=== PATIENT | female | born 1950 | race African-American/Black ===

== ENCOUNTER 2024-08-28 04:31 | Emergency (ER) | payer MEDICARE, SELFPAY ==
--- NOTE | ~2024-08-28 | CT_ITS ---
EXAMINATION: CTA abd aorta runoff DATE: 08/28/2024 06:02 INDICATION: Peripheral arterial disease. Decreased pulses in right lower limb. TECHNIQUE: Computed tomographic angiography (CTA) of the abdominal, pelvis, and both lower extremitie s was performed with 150 mL Omnipaque-350 intravenous contrast. Automated exposure control and iterat candelario reconstruction technique were employed. The dose-length product was 1286.29 mGy-cm. Maximum inten sity projection 3D-reconstructions of the arteries were created by the technologist on a separate wor kstation. COMPARISON: None. FINDINGS: ABDOMINAL AORTA AND ITS BRANCHES: Abdominal aorta is normal in caliber. There is no significant stenosis of celiac axis, superior mesen teric artery, the renal arteries, or inferior mesenteric artery. PELVIC VASCULATURE: There is no significant stenosis of the common iliac arteries, internal iliac arteries, or external i liac arteries. RIGHT LOWER EXTREMITY VASCULATURE: There is no significant stenosis of common femoral artery, profunda femoral artery, superficial femor al artery, popliteal artery, tibioperoneal trunk, anterior tibial artery, or peroneal artery. Posteri or tibial artery is small and not well evaluated. There is total occlusion of the dorsalis pedis with reconstitution. LEFT LOWER EXTREMITY VASCULATURE: There is no significant stenosis of left common femoral artery, profunda femoral artery, or superfici al femoral artery. There is moderate stenosis of popliteal artery. There is no significant stenosis o f the tibioperoneal trunk. There is moderate stenosis of proximal anterior tibial artery. There is no significant stenosis of peroneal artery. There is total occlusion of distal posterior tibial artery. ADDITIONAL FINDINGS: The visualized portions of the lung bases demonstrate mild atelectasis. No pleural effusion. There is left atrial enlargement of the heart. There are coronary artery calcifications. No pericardial effus ion. The liver and spleen are normal. There are gallstones in the gallbladder, which is normal in siz e. The pancreas and adrenal glands are normal. There are cysts in the kidneys measuring up to 5 mm on the right. There is diverticulosis of the colon without evidence of diverticulitis. There are no dil ated loops of bowel. The appendix is normal. There are no pathologically enlarged lymph nodes. There is no free intraperitoneal fluid. There is a trimalleolar fracture of right ankle. IMPRESSION: 1. Total occlusion of right dorsalis pedis with reconstitution. 2. Small right posterior tibial artery, which is otherwise not well evaluated. 3. Moderate stenosis of left popliteal artery. 4. Moderate stenosis of proximal left anterior tibial artery. Total occlusion of distal left posterio r tibial artery. 5. Trimalleolar fracture of right ankle. Reviewed, dictated and finalized at location A. HANDLER IMPRESSION: 1. Total occlusion of right dorsalis pedis with reconstitution. 2. Small right posterior tibial artery, which is otherwise not well evaluated. 3. Moderate stenosis of left popliteal artery. 4. Moderate stenosis of proximal left anterior tibial artery. Total occlusion o f distal left posterior tibial artery. 5. Trimalleolar fracture of right ankle.
--- NOTE | ~2024-08-28 | XR_ITS ---
Right ankle Technique: AP, oblique, and lateral views were obtained. Clinical History: Injury Findings: There is acute, oblique fracture of the distal fibular shaft with significant lateral displ acement and overriding of the distal fracture fragment. There is comminuted fractures of the base the medial malleolus with significant displacement. There is medial dislocation of the distal tibia with respect to the talar dome. There is marked widening of the anterior aspect of the ankle mortise on l ateral view. No definite posterior malleolus fracture clearly seen. Soft tissues are otherwise unrema rkable. Impression: Significant displaced medial and lateral malleolus fractures, as above with associated medial disloca tion of the distal tibia with respect to the talar dome. No definite posterior malleolus fracture seen, though it may be obscured due to limitations in patien t positioning. Reviewed, dictated and finalized at [facility]. ACE TENDER Impression: Significant displaced medial and lateral malleolus fractures, as above with ass ociated medial dislocation of the distal tibia with respect to the talar dome. No definite posterior malleolus fracture seen, though it may be obscured due to limitations in patient positioning.
--- NOTE | ~2024-08-28 | XR_ITS ---
Right ankle Technique: AP and lateral views were obtained. Clinical History: Post reduction COMPARISON: 08/28/2024 at 4:42 AM Findings: Status post interval closed reduction. Oblique fracture of the distal fibula and fractures the base the medial malleolus are again present. Osseous alignment is markedly improved following layo sed reduction and casting, with near-anatomic alignment. Probable small posterior malleolus fracture also present on lateral view. Soft tissues are otherwise unremarkable. Impression: Marked interval improvement in alignment of trimalleolar fractures, as detailed above, following clos ed reduction. Osseous alignment is now near anatomic. Status post interval casting. Reviewed, dictated and finalized at location M. OR PRINCIPAL PROCESS ENGINEER Impression: Marked interval improvement in alignment of trimalleolar fractures, as detailed above, following closed reduction. Osseous alignment is now near anatomic. Sta tus post interval casting.
--- NOTE | ~2024-08-28 | XR_ITS ---
Portable chest x-ray Comparison: None Clinical History: Cough Findings: Lungs are clear, without focal consolidation or pleural effusion. Cardiomediastinal silho uette is mildly prominent. Bones and soft tissues are unremarkable. Impression: Clear lungs. Mild cardiomegaly. Reviewed, dictated and finalized at location . UP PERSON Impression: Clear lungs. Mild cardiomegaly.
[2024-08-28] MEDS: HYDROmorphone HCL INJ (*CRX) 1 MG/ML SYR IV PUSH (04:39)
[2024-08-28 04:45] VITALS: BP 141/74; PULSE 88; RESP 17; TEMP 36.7; O2SAT 100
[2024-08-28 05:16] LABS: Basophils Percent Auto 0.3 % (0.2-1.2); Eosinophils Absolute Auto 0.1 K/mm3 (0-0.3); Eosinophils Percent Auto 1.4 % (0-4.4); Hematocrit 36.2 % (37.0-47.0); Hemoglobin 11.4 g/dL (12.0-15.0); Immature Granulocyte Absolute 0.02 K/mm3 (0.00-0.031); Immature Granulocyte Percent A 0.3 % (0-0.5); Lymphocytes Absolute Auto 3.54 K/mm3 (0.9-3.2); Mean Corpuscular HGB Conc 31.5 g/dl (32-36); Mean Corpuscular Hemoglobin 28.8 pg (26-34); Mean Corpuscular Volume 91.4 fl (80-100); Mean Platelet Volume 10.9 fl (7.4-10.4); Monocytes Absolute Auto 0.5 K/mm3 (0.1-0.6); Monocytes Percent Auto 7.5 % (2.6-8.5); Neutrophils Absolute Auto 2.4 K/mm3 (1.3-6.7); Neutrophils Percent Auto 36.5 % (45.5-73.1); Platelet Count Result 164 k/mm3 (150-375); Red Blood Count 3.96 M/mm3 (4.2-5.4); Red Cell Distribution Width 15.9 % (11.5-14.5); White Blood Count 6.6 K/mm3 (4.5-10.0)
[2024-08-28 05:28] LABS: Prothrombin Time 13.9 Seconds (11.1-14.7)
[2024-08-28 05:29] LABS: Partial Thromboplastin Time 26.2 Seconds (22.3-36.8)
[2024-08-28 05:31] LABS: Alanine Aminotransferase 19 U/L (6-35); Albumin Level 4.2 g/dL (3.5-5.1); Alkaline Phosphatase 47 U/L (38-126); Anion Gap 1 mmol/L (4-12); Aspartate Amino Transferase 40 U/L (14-36); Bilirubin,Total 0.6 mg/dL (0.2-1.3); Blood Urea Nitrogen 28 mg/dL (7-17); Calcium 8.7 mg/dL (8.4-10.2); Carbon Dioxide 29 mmol/L (22-30); Chloride 109 mmol/L (98-107); Estimated CRCL calculation 49 ml/min; Estimated Glomerular Filt Rate > 60; Glucose 132 mg/dL (65-110); Potassium 3.8 mmol/L (3.4-5.0); Sodium 139 mmol/L (137-145)
--- NOTE | 2024-08-28 05:35 | ED.GENADULT ---
HPI - General Adult General Chief complaint: Extremity Injury, Lower <Morris Ruiz MD - Last Filed: 08/28/24 05:39> Stated complaint: ANKLE INJURY S/P FALL <Morris Ruiz MD - Last Filed: 08/28/24 05:39> Time Seen by Provider: 08/28/24 04:56 <Morris Ruiz MD - Last Filed: 08/28/24 05:39> History of Present Illness HPI narrative: Patient is a 74-year-old female who presents emergency department with chief complaint of right ankle pain. Patient tripped on steps at home and landed on her right ankle the patient reports no head injury denies loss of consciousness EMS reported obvious deformity at the scene and at were having a difficult time assessing a pulse in the right foot. The patient reports severe pain in the right ankle and foot <Morris Ruiz MD - Last Filed: 08/28/24 05:39> Related Data Allergies/adverse reactions: Allergies Allergy/AdvReac Type Severity Reaction Status Date / Time No Known Allergies Allergy Verified 08/28/24 04:52 <Morris Ruiz MD - Last Filed: 08/28/24 05:39> Review of Systems Review of Systems: A 10 system review of systems was completed on the patient and is negative except for what is stated in the HPI. Nursing and ancillary documentation was reviewed. <Morris Ruiz MD - Last Filed: 08/28/24 05:39> Exam Narrative: GENERAL: Well-appearing, well-nourished, and in no acute distress. HEAD: Normocephalic, atraumatic. EYES: PERRLA and EOMI. ENT: Nares clear, no rhinorrhea or epistaxis. Mucous membranes moist. NECK: Supple. CHEST: Clear to auscultation. No respiratory distress. HEART: Regular rate and rhythm. No murmur heard. Normal peripheral pulses. ABDOMEN: Soft, nontender, nondistended, normal active bowel sounds. EXTREMITIES: Normal range of motion obvious deformity to the right ankle. No edema. SKIN: Warm, dry, no rash. NEURO: No focal deficits. Alert and oriented x3. PSYCH: Normal mood and affect. <Morris Ruiz MD - Last Filed: 08/28/24 05:39> Course Reevaluation(s) Reevaluation #1: 74-year-old female presenting to the emergency department for evaluation for a right ankle fracture dislocation, right ankle was reduced by the overnight physician. CTA evaluating for arterial injury was performed. Patient does have chronic areas of occlusion with revascularization. On clinical exam patient does not appear to have any acute arterial injury. I did discussed case with orthopedics and due to her history being a vasculopath being established and [facility] they recommended transfer to ensure if your complications with healing. I discussed case with the ER physician hip arms and patient was accepted as an ER to ER transfer. Patient family are comfortable with plan for transfer. Patient was comfortable and well-appearing at time of transfer. <William Fofana MD - Last Filed: 08/28/24 09:52> Vital Signs Vital signs: Vital Signs Temperature 98.0 F 08/28/24 04:45 Pulse Rate 88 08/28/24 04:45 Respiratory Rate 17 08/28/24 04:45 Blood Pressure 141/74 H 08/28/24 04:45 Pulse Oximetry 100 08/28/24 04:45 Oxygen Delivery Room Air 08/28/24 04:45 Temperature 98.0 F 08/28/24 04:45 Pulse Rate 80 08/28/24 09:10 Respiratory Rate 18 08/28/24 09:10 Blood Pressure 183/87 H 08/28/24 09:10 Pulse Oximetry 100 08/28/24 09:10 Oxygen Delivery Room Air 08/28/24 04:45 <Morris Ruiz MD - Last Filed: 08/28/24 05:39> Vital Signs Temperature 98.0 F 08/28/24 04:45 Pulse Rate 88 08/28/24 04:45 Respiratory Rate 17 08/28/24 04:45 Blood Pressure 141/74 H 08/28/24 04:45 Pulse Oximetry 100 08/28/24 04:45 Oxygen Delivery Room Air 08/28/24 04:45 Temperature 98.0 F 08/28/24 04:45 Pulse Rate 80 08/28/24 09:10 Respiratory Rate 18 08/28/24 09:10 Blood Pressure 183/87 H 08/28/24 09:10 Pulse Oximetry 100 08/28/24 09:10 Oxygen Delivery Room Air 08/28/24 04:45 <William Fofana MD - Last Filed: 08/28/24 09:52> Procedures Orthopedic Joint Reduction Joint #1: Orthopedic Joint Reduction Date: 08/28/24 <Morris Ruiz MD - Last Filed: 08/28/24 05:39> Orthopedic Joint Reduction Time: 05:38 <Morris Ruiz MD - Last Filed: 08/28/24 05:39> Time Out Performed: Yes <Morris Ruiz MD - Last Filed: 08/28/24 05:39> Side: right <Morris Ruiz MD - Last Filed: 08/28/24 05:39> Joint Reduction Location: ankle (Fracture dislocation of the right ankle) <Morris Ruiz MD - Last Filed: 08/28/24 05:39> Analgesia: none <Morris Ruiz MD - Last Filed: 08/28/24 05:39> Pre-Procedure Neuro Vascular Exam: abnormal (Difficulty assessing a pulse) <Morris Ruiz MD - Last Filed: 08/28/24 05:39> Local Anesthesia: none <Morris Ruiz MD - Last Filed: 08/28/24 05:39> Technique used: direct manipulation <Morris Ruiz MD - Last Filed: 08/28/24 05:39> Post-reduction neuro exam: intact <Morris Ruiz MD - Last Filed: 08/28/24 05:39> Post-reduction vascular: no change <Morris Ruiz MD - Last Filed: 08/28/24 05:39> Post Reduction X-Ray Obtained: Yes <Morris Ruiz MD - Last Filed: 08/28/24 05:39> Post Reduction X-Ray Results: reduced <Morris Ruiz MD - Last Filed: 08/28/24 05:39> Splint Applied: Yes <Morris Ruiz MD - Last Filed: 08/28/24 05:39> Patient Tolerated Procedure: well <Morris Ruiz MD - Last Filed: 08/28/24 05:39> Medical Decision Making Vital Signs Vital Signs: Vital Signs Temperature 98.0 F 08/28/24 04:45 Pulse Rate 88 08/28/24 04:45 Respiratory Rate 17 08/28/24 04:45 Blood Pressure 141/74 H 08/28/24 04:45 Pulse Oximetry 100 08/28/24 04:45 Oxygen Delivery Room Air 08/28/24 04:45 Temperature 98.0 F 08/28/24 04:45 Pulse Rate 80 08/28/24 09:10 Respiratory Rate 18 08/28/24 09:10 Blood Pressure 183/87 H 08/28/24 09:10 Pulse Oximetry 100 08/28/24 09:10 Oxygen Delivery Room Air 08/28/24 04:45 <Morris Ruiz MD - Last Filed: 08/28/24 05:39> Vital Signs Temperature 98.0 F 08/28/24 04:45 Pulse Rate 88 08/28/24 04:45 Respiratory Rate 17 08/28/24 04:45 Blood Pressure 141/74 H 08/28/24 04:45 Pulse Oximetry 100 08/28/24 04:45 Oxygen Delivery Room Air 08/28/24 04:45 Temperature 98.0 F 08/28/24 04:45 Pulse Rate 80 08/28/24 09:10 Respiratory Rate 18 08/28/24 09:10 Blood Pressure 183/87 H 08/28/24 09:10 Pulse Oximetry 100 08/28/24 09:10 Oxygen Delivery Room Air 08/28/24 04:45 <William Fofana MD - Last Filed: 08/28/24 09:52> Lab Data Lab results reviewed: Yes I reviewed the patient's lab results. <William Fofana MD - Last Filed: 08/28/24 09:52> Result diagrams: 08/28/24 05:11 08/28/24 05:11 <Morris Ruiz MD - Last Filed: 08/28/24 05:39> Labs: Lab Results 08/28/24 Range/Units 05:11 WBC 6.6 (4.5-10.0) K/mm3 RBC 3.96 L (4.2-5.4) M/mm3 Hgb 11.4 L (12.0-15.0) g/dL Hct 36.2 L (37.0-47.0) % MCV 91.4 (80-100) fl MCH 28.8 (26-34) pg MCHC 31.5 L (32-36) g/dl RDW 15.9 H (11.5-14.5) % Plt Count 164 (150-375) k/mm3 MPV 10.9 H (7.4-10.4) fl Immature Gran % (Auto) 0.3 (0-0.5) % Neut % (Auto) 36.5 L (45.5-73.1) % Lymph % (Auto) 54.0 H (18.3-44.2) % Fulton % (Auto) 7.5 (2.6-8.5) % Eos % (Auto) 1.4 (0-4.4) % Baso % (Auto) 0.3 (0.2-1.2) % Lymph # (Auto) 3.54 H (0.9-3.2) K/mm3 Fulton # (Auto) 0.5 (0.1-0.6) K/mm3 Eos # (Auto) 0.1 (0-0.3) K/mm3 Baso # (Auto) 0.0 (0.0-0.1) K/mm3 Abs Immat Gran (auto) 0.02 (0.00-0.031) K/mm3 Absolute Neuts (auto) 2.4 (1.3-6.7) K/mm3 Absolute Nucleated RBC 0.000 (0.0-0.012) K/mm3 Nucleated RBC % 0.0 (0.0-0.2) % PT 13.9 (11.1-14.7) Seconds INR 1.0 APTT 26.2 (22.3-36.8) Seconds Sodium 139 (137-145) mmol/L Potassium 3.8 (3.4-5.0) mmol/L Chloride 109 H (98-107) mmol/L Carbon Dioxide 29 (22-30) mmol/L Anion Gap 1 L (4-12) mmol/L BUN 28 H (7-17) mg/dL Creatinine 0.90 (0.7-1.0) mg/dL Estim Creat Clear Calc 49 ml/min Estimated GFR > 60 (59 - ) Glucose 132 H (65-110) mg/dL Calcium 8.7 (8.4-10.2) mg/dL Total Bilirubin 0.6 (0.2-1.3) mg/dL AST 40 H (14-36) U/L ALT 19 (6-35) U/L Alkaline Phosphatase 47 (38-126) U/L Total Protein 7.0 (6.3-8.2) g/dL Albumin 4.2 (3.5-5.1) g/dL <Morris Ruiz MD - Last Filed: 08/28/24 05:39> Lab Results 08/28/24 Range/Units 05:11 WBC 6.6 (4.5-10.0) K/mm3 RBC 3.96 L (4.2-5.4) M/mm3 Hgb 11.4 L (12.0-15.0) g/dL Hct 36.2 L (37.0-47.0) % MCV 91.4 (80-100) fl MCH 28.8 (26-34) pg MCHC 31.5 L (32-36) g/dl RDW 15.9 H (11.5-14.5) % Plt Count 164 (150-375) k/mm3 MPV 10.9 H (7.4-10.4) fl Immature Gran % (Auto) 0.3 (0-0.5) % Neut % (Auto) 36.5 L (45.5-73.1) % Lymph % (Auto) 54.0 H (18.3-44.2) % Fulton % (Auto) 7.5 (2.6-8.5) % Eos % (Auto) 1.4 (0-4.4) % Baso % (Auto) 0.3 (0.2-1.2) % Lymph # (Auto) 3.54 H (0.9-3.2) K/mm3 Fulton # (Auto) 0.5 (0.1-0.6) K/mm3 Eos # (Auto) 0.1 (0-0.3) K/mm3 Baso # (Auto) 0.0 (0.0-0.1) K/mm3 Abs Immat Gran (auto) 0.02 (0.00-0.031) K/mm3 Absolute Neuts (auto) 2.4 (1.3-6.7) K/mm3 Absolute Nucleated RBC 0.000 (0.0-0.012) K/mm3 Nucleated RBC % 0.0 (0.0-0.2) % PT 13.9 (11.1-14.7) Seconds INR 1.0 APTT 26.2 (22.3-36.8) Seconds Sodium 139 (137-145) mmol/L Potassium 3.8 (3.4-5.0) mmol/L Chloride 109 H (98-107) mmol/L Carbon Dioxide 29 (22-30) mmol/L Anion Gap 1 L (4-12) mmol/L BUN 28 H (7-17) mg/dL Creatinine 0.90 (0.7-1.0) mg/dL Estim Creat Clear Calc 49 ml/min Estimated GFR > 60 (59 - ) Glucose 132 H (65-110) mg/dL Calcium 8.7 (8.4-10.2) mg/dL Total Bilirubin 0.6 (0.2-1.3) mg/dL AST 40 H (14-36) U/L ALT 19 (6-35) U/L Alkaline Phosphatase 47 (38-126) U/L Total Protein 7.0 (6.3-8.2) g/dL Albumin 4.2 (3.5-5.1) g/dL <William Fofana MD - Last Filed: 08/28/24 09:52> Imaging Data Radiologist's impression: Impressions Ankle X-Ray 08/28/24 06:54 Impression: Significant displaced medial and lateral malleolus fractures, as above with associated medial dislocation of the distal tibia with respect to the talar dome. No definite posterior malleolus fracture seen, though it may be obscured due to limitations in patient positioning. Ankle X-Ray 08/28/24 07:10 Impression: Marked interval improvement in alignment of trimalleolar fractures, as detailed above, following closed reduction. Osseous alignment is now near anatomic. Status post interval casting. Chest X-Ray 08/28/24 07:11 Impression: Clear lungs. Mild cardiomegaly. Aorta w/Runoff CTA 08/28/24 08:28 IMPRESSION: 1. Total occlusion of right dorsalis pedis with reconstitution. 2. Small right posterior tibial artery, which is otherwise not well evaluated. 3. Moderate stenosis of left popliteal artery. 4. Moderate stenosis of proximal left anterior tibial artery. Total occlusion of distal left posterior tibial artery. 5. Trimalleolar fracture of right ankle. <William Fofana MD - Last Filed: 08/28/24 09:52> Discharge Plan Discharge Clinical Impression: Closed trimalleolar fracture <Morris Ruiz MD - Last Filed: 08/28/24 05:39> Patient Disposition: Acute Care Hospital <Morris Ruiz MD - Last Filed: 08/28/24 05:39> Condition: Serious <Morris Ruiz MD - Last Filed: 08/28/24 05:39> Follow-up/Referrals: PHYSICIAN,FENDER MECHANIC APPRENTICE [Primary Care Provider] - <Morris Ruiz MD - Last Filed: 08/28/24 05:39>
[2024-08-28 07:26] VITALS: BP 156/85; PULSE 78; RESP 18; O2SAT 100
[2024-08-28 09:10] VITALS: BP 183/87; PULSE 80; RESP 18; O2SAT 100
--- NOTE | 2024-08-28 09:58 | PC.NURSE ---
Patient accepted to [facility] for ER-ER transfer. Spoke with JAY Taylor from [facility] ER for report. Patient waiting for EMS transport
[2024-08-28] MEDS: HYDROmorphone HCL INJ (*CRX) 1 MG/ML SYR 0.5 MG IV PUSH (10:02)
[2024-08-28 10:45] VITALS: BP 186/95; PULSE 84; RESP 18; O2SAT 95
== END 2024-08-28 10:55 | disposition short-term general hospital (02) ==
PROVIDERS: Emergency Provider Emergency Medicine
DX: S82.851A Displaced trimalleolar fracture of right lower leg, initial encounter for closed fracture (principal); I70.203 Unspecified atherosclerosis of native arteries of extremities, bilateral legs; W10.9XXA Fall (on) (from) unspecified stairs and steps, initial encounter
CPT/HCPCS: 27818; 36415; 71045; 73600; 73610; 75635; 80053; 85025; 85610; 85730; 96374; 96376; 99285; J1171; Q9967

== ENCOUNTER 2024-11-10 14:49 | Emergency (ER) | payer MEDICARE, SELFPAY ==
[2024-11-10 14:53] VITALS: BP 146/65; PULSE 76; RESP 15; TEMP 36.7; O2SAT 100
--- NOTE | 2024-11-10 15:00 | ED.GENADULT ---
HPI - General Adult General Chief complaint: Recheck/Abnormal Lab/Rx <NIC Gunn Last Filed: 11/10/24 15:13> Stated complaint: blocked picc line <NIC Gunn Last Filed: 11/10/24 15:13> Time Seen by Provider: 11/10/24 15:00 <NIC Gunn Last Filed: 11/10/24 15:13> Focused HPI: Patient is a 74-year-old female who presents the ED with report of clogged LUE PICC line. Patient has history of a trimalleolar fracture with subsequent infection of her right ankle/hardware. She has undergone numerous surgeries for her right ankle, last surgery on 11/03 to remove the hardware at [facility]. Currently has PICC line to receive IV daptomycin. Also on oral abx. Daughter reports antibiotic infusion was somewhat stiff last night but they were able to finish the infusion. Today, home health nurse was unable to flush or advance medication through PICC line. Sent here for further evaluation. Patient denies any numbness, LUE pain. She is on Eliquis. GENERAL: Well-appearing, well-nourished, and in no acute distress. HEAD: Normocephalic, atraumatic. CHEST: Clear to auscultation. ?No respiratory distress. HEART: Regular rate and rhythm.? MSK: PICC line in L upper arm w/o swelling, erythema, warmth, drainage. No tenderness throughout arm. R ankle wrapped in HOLLY bandage. NEURO: ?Alert and oriented x3. Patient screened in triage and initial orders placed.? ?Additional care and disposition to be based upon?diagnostic testing and treatment. <NIC Gunn Last Filed: 11/10/24 15:13> Source: patient and old records reviewed <NIC Gunn Last Filed: 11/10/24 15:13> Mode of arrival: wheelchair <NIC Gunn Last Filed: 11/10/24 15:13> Limitations: no limitations <NIC Gunn Last Filed: 11/10/24 15:13> Related Data Allergies/adverse reactions: Allergies Allergy/AdvReac Type Severity Reaction Status Date / Time No Known Allergies Allergy Verified 11/10/24 14:58 <Cristin Ho PA-C - Last Filed: 11/10/24 15:13> Review of Systems Review of Systems: All systems reviewed & are unremarkable except as noted in HPI and below <William Fofana MD - Last Filed: 11/10/24 22:08> Exam Narrative: APPEARANCE: Well appearing, no pain, no distress, well-nourished. HEAD: normocephalic, atraumatic. EYES: PERRLA/EOMI, conjunctivae clear. NOSE: Normal no drainage EARS:TMS clear with good light reflex. THROAT: Pharynx clear, no exudate. NECK: Supple. No adenopathy, no masses. RESPIRATORY: Airway patent, respirations nonlabored. Clear to auscultation bilaterally, no rales, rhonchi, wheezing. CARDIOVASCULAR: Regular rate and rhythm without murmurs rubs or gallops. ABDOMINAL: Soft, nontender, nondistended, normal bowel sounds MUSCULOSKELETAL: Moves all extremities. Strength/ROM intact, No edema, No calf tenderness. NEURO: Alert. Cranial nerves II through XII intact. Good gait. Good coordination SKIN: Warm, dry. Normal Color <William Fofana MD - Last Filed: 11/10/24 22:08> Course Vital Signs Vital signs: Vital Signs Temperature 98.1 F 11/10/24 14:53 Pulse Rate 76 11/10/24 14:53 Respiratory Rate 15 11/10/24 14:53 Blood Pressure 146/65 H 11/10/24 14:53 Pulse Oximetry 100 11/10/24 14:53 Temperature 98.1 F 11/10/24 14:53 Pulse Rate 76 11/10/24 14:53 Respiratory Rate 15 11/10/24 14:53 Blood Pressure 146/65 H 11/10/24 14:53 Pulse Oximetry 100 11/10/24 14:53 <Cristin Ho PA-C - Last Filed: 11/10/24 15:13> Vital Signs Temperature 98.1 F 11/10/24 14:53 Pulse Rate 76 11/10/24 14:53 Respiratory Rate 15 11/10/24 14:53 Blood Pressure 146/65 H 11/10/24 14:53 Pulse Oximetry 100 11/10/24 14:53 Temperature 98.1 F 11/10/24 14:53 Pulse Rate 76 11/10/24 14:53 Respiratory Rate 15 11/10/24 14:53 Blood Pressure 146/65 H 11/10/24 14:53 Pulse Oximetry 100 11/10/24 14:53 <William Fofana MD - Last Filed: 11/10/24 22:08> Medical Decision Making MDM Narrative Medical decision making narrative: MSE by ALLYSSA in triage. <Cristin Ho PA-C - Last Filed: 11/10/24 15:13> MSE by ALLYSSA in triage. Patient's PICC line was treated with cathflow. atleplase. This was left an the PICC line for 2 hours and pick lying does flushed without resistance now. Now able to flush and draw back. <William Fofana MD - Last Filed: 11/10/24 22:08> Vital Signs Vital Signs: Vital Signs Temperature 98.1 F 11/10/24 14:53 Pulse Rate 76 11/10/24 14:53 Respiratory Rate 15 11/10/24 14:53 Blood Pressure 146/65 H 11/10/24 14:53 Pulse Oximetry 100 11/10/24 14:53 Temperature 98.1 F 11/10/24 14:53 Pulse Rate 76 11/10/24 14:53 Respiratory Rate 15 11/10/24 14:53 Blood Pressure 146/65 H 11/10/24 14:53 Pulse Oximetry 100 11/10/24 14:53 <Cristin Ho PA-C - Last Filed: 11/10/24 15:13> Vital Signs Temperature 98.1 F 11/10/24 14:53 Pulse Rate 76 11/10/24 14:53 Respiratory Rate 15 11/10/24 14:53 Blood Pressure 146/65 H 11/10/24 14:53 Pulse Oximetry 100 11/10/24 14:53 Temperature 98.1 F 11/10/24 14:53 Pulse Rate 76 11/10/24 14:53 Respiratory Rate 15 11/10/24 14:53 Blood Pressure 146/65 H 11/10/24 14:53 Pulse Oximetry 100 11/10/24 14:53 <William Fofana MD - Last Filed: 11/10/24 22:08> Discharge Plan Discharge Clinical Impression: Occluded PICC line <Cristin Ho PA-C - Last Filed: 11/10/24 15:13> Patient Disposition: Home, Self-Care <Cristin Ho PA-C - Last Filed: 11/10/24 15:13> Condition: Stable <Cristin Ho PA-C - Last Filed: 11/10/24 15:13> Instructions: Antibiotic Form <NIC Gunn Last Filed: 11/10/24 15:13> Additional Instructions: PICC line care as directed. <Cristin Ho PA-C - Last Filed: 11/10/24 15:13> Patient Language: Swedish <Cristin Ho PA-C - Last Filed: 11/10/24 15:13> Prescriptions: No Action clindamycin HCl 300 mg capsule 300 mg PO Q6H 10 Days Qty: 40 0RF hydrocodone-acetaminophen 5-325 mg tablet 1 tablet PO Q6H PRN (Reason: pain) 3 Days Qty: 12 0RF <Cristin Ho PA-C - Last Filed: 11/10/24 15:13> Follow-up/Referrals: Raman,Aaron Mauricio MD [Primary Care Provider] - <Cristin Ho PA-C - Last Filed: 11/10/24 15:13>
[2024-11-10] MEDS: ALTEPLASE 2 MG VIAL (CATHFLO) IV PUSH (15:38)
--- OUTSIDE RECORDS SUMMARY | 2024-11-10 17:35 | XMS_ITS | Patient Health Record ---
Author Organization [facility] Address [address] [address] Support Name Relationship Address Phone Rylee York Guarantor Unknown [phone] Reason For Referral No Information Problems Problem Type SNOMED Code ICD Code Onset Dates Problem Status W/U Status Risk Notes Problem Type II diabetes mellitus without complication (563273946) Diabetes mellitus without mention of complication, type II or unspecified type, not stated as uncontrolled (250.00) 05/03/20 11 Active confirmed (Yohan) Problem Hyperlipidemia (50145967) Other and unspecified hyperlipidemia (272.4) 05/03/20 11 Active confirmed (Yohan) Problem Essential hypertension (84823094) Unspecified essential hypertension (401.9) 05/03/20 11 Active confirmed (Yohan) Problem Screening for malignant neoplasm of colon (529492550) Special screening for malignant neoplasms, colon (V76.51) 05/03/20 11 Active confirmed (Yohan) Plan Of Treatment No Information
--- OUTSIDE RECORDS SUMMARY | 2024-11-10 17:35 | XMS_ITS | Encounter Summary ---
Author Organization [facility] Healthcare Address [address] [place] [address] Care Team Providers Care Weatherization Specialist Name Role Phone Aaron Camargo MD Primary Care Provider Geneva Stacy RN Unavailable Florentino Mcgowan MD Unavailable Juan Jose Caldwell MD Unavailable Encounter Details Date Type Department Care Team (Late st Contact Info) Description 11/10/2024 Orders Only [facility] Home Care Services [address] [place] [address] Enoch Guan, [facility] Social History Tobacco Use Types Packs/Day Years Used Date Smoking Tobacco: Former Cigarettes Smokeless Tobacco: Never OASIS D0700: Social Isolation Answer Da te Recorded Frequency of experiencing loneliness or isolatio n Often 11/06/2024 OASIS A1250: Transportation Answer Date Recorded Lack of Transportation (Medical) No 11/06/2024 Lack of Transportation (Non-Medical) No 11/06/2024 Patient Unable or Declines to Respond No 11/06/2024 OASIS B1300: Health Literacy Answer Lee e Recorded Frequency of needing help to read materials from doctor or pharmacy Sometimes 11/06/2024 [facility] Utilities Answer Date Recorded In the past 12 months has e electric, gas, oil, or water company threatened to shut off services in your home? No 11/03/2024 Social Connection and Isolat ion Panel [NHANES] Answer Date Recorded In a typical week, how many times do you talk on the phone with family, friends, or neighbors? More than three times a week 11/03/2024 How often do you get togethe r with friends or relatives? More than three times a week 11/03/2024 How often do you attend chur ch or buddhism services? More than 4 times per year 11/03/2024 Do you belong to any clubs o r organizations such as caodaism groups, unions, fraternal or athletic groups, or school groups? No 11/03/2024 How often do you attend meet ings of the clubs or organizations you belong to? Never 11/03/2024 Are you , , di vorced, , never , or living with a partner? 11/03/2024 AUDIT-C Answer Date Recorded Q1: How often do you have a drink containing alcohol? Never 10/29/2024 Q2: How many drinks containi ng alcohol do you have on a typical day when you are drinking? Patient does not drink Q3: How often do you have si x or more drinks on one occasion? Never 10/29/2024 Overall Financial Resource Strain (CARDIA) Answe r Date Recorded How hard is it for you to pa y for the very basics like food, housing, medical care, and heating? Not hard at all 11/03/2024 PHQ-2 Answer Date Recorded PHQ-2 Total Score (If total score is 3 or more points, staff should administer the PHQ-9) 0 11/03/2024 Hunger Vital Sign Answer Date Recorded Within the past 12 months, y ou worried that your food would run out before you got the money to buy more. Never true 11/03/19 25 Within the past 12 months, t he food you bought just didn't last and you didn't have money to get more. Never true 11/03/2024 PRAPARE - Transportation Answer Date Re corded In the past 12 months, has l ack of transportation kept you from medical appointments or from getting medications? No 10/25 In the past 12 months, has l ack of transportation kept you from meetings, work, or from getting things needed for daily living? No 11/03/2024 Housing Stability Vital Sign Answer Lee e Recorded In the last 12 months, was t here a time when you were not able to pay the mortgage or rent on time? No 11/15/2023 In the last 12 months, how many places have you lived? 1 11/15/2023 In the last 12 months, was t here a time when you did not have a steady place to sleep or slept in a fpc (including now)? No 11/15/2023 Housing Stability Vital Sign Answer Lee e Recorded In the last 12 months, was t here a time when you were not able to pay the mortgage or rent on time? No 11/03/2024 In the past 12 months, how m any times have you moved where you were living? 0 11/03/2024 At any time in the past 12 m [place], were you homeless or living in a fpc (including now)? No 11/03/2024 Personal Safety Answer Date Recorded Have you ever been in or are you currently in a harmful physical or emotional relationship or is someone making you feel afraid or unsafe? Denies 10/31/2024 Comments No Sex and Gender Information Value Date Recorded Sex Assigned at Not on file Legal Sex Female 1:23 PM ROTO MIXER OPERATOR Gender Identity Not on file Sexual Orientation Not on file documented as of this encounter Plan of Treatment Not on file documented as of this encounter Goals Goal Patient Goal Type Associated Problems Recent Progress Patient-Stated? Author MUKUL General Goal - Patient / caregiver verbalizes lifestyle changes necessary to meet self-care needs and executes self-care activities to utmost capability ACO Care Management On track(2024 11:17 AM ROTO MIXER OPERATOR) No Geneva Stacy, RN Note: Problem: At Risk for Self Care Deficit Interventions: - Assess patient's level of dependence on others along with current level of assistance being provided. - Use motivational interviewing to help guide the patient in accepting the needed amount of assisstance, as applicable. - Contact caregiver and assess their involvement with patient and level of assistance provided, as appropriate. - Assess appropriateness for Home Health. Start referral process if skilled need is present. - Encourage independent ADL's as appropriate. Ensure patient has the appropriate tools at home to be as independent as possible. - Provide fall prevention education to patient and caregiver. - Evaluate need for assistive devices. - Refer to SW if appropriate and patient is agreeable. MUKUL General Goal - Patient schedules and keeps appointments with all recommended providers ACO Care Management On track(2024 11:17 AM ROTO MIXER OPERATOR) Geneva Cannon, JAY Note: Problem: Potential for medical complications and readmission if follow-up appointments are not scheduled Interventions: - Ensure all follow-up appointments are scheduled, all prescribed medications have been received. - Address any barriers for keeping scheduled appointment. - Coordinate with patient/caregiver(s) to ensure patient is able to keep scheduled appointment. - Emphasize importance of keeping scheduled appointments. - Identify and discuss questions for next provider visit. - Follow up with patient after scheduled appointment(s) to review any new orders or changes made to medication regimen. documented as of this encounter Visit Diagnoses Not on filedocumented in this encounter Historical Medications * This list may reflect changes made after this encounter. alteplase (CATHFLO ACTIVASE) 2 mg injection 2 mL (2 mg total) once RN to reconstitute vial with 2.2ml Sterile Water just prior to administration. RN to instill Alteplase 2mg/2.2ml to catheter and allow to dwell for at least 30 minutes to restore catheter patency. 11/11/2024 added in this encounter Orders Nursing Count Last Ordered Date First Orde red Date MISCELLENEOUS ORDER 1 11/10/2024 documented in this encounter Care Teams Weatherization Specialist Relationship Specialty Start Date End Date Aaron Camargo MD [address] [facility] [address] [place] [address] PCP - General Family Medicine 02/05/24 Geneva Stacy RN [address] [place] [address] [address] [place] [address] Tip Cementer 09/03/24 Florentino Mcgowan MD [address] [facility] [address] [place] [address] Consulting Physician Orthopedic Surgery 10/08/24 Juan Jose Caldwell MD [address] [place] [id number] Consulting Physician Infectious Diseases 11/02/24 documented as of this encounter
--- OUTSIDE RECORDS SUMMARY | 2024-11-10 17:35 | XMS_ITS | Encounter Summary ---
Author Organization [facility] Healthcare Address [address] [place] [address] Care Team Providers Care Coil Cleaner Name Role Phone Aaron Camargo MD Primary Care Provider Geneva Stacy RN Unavailable Florentino Mcgowan MD Unavailable [phone] Juan Jose Caldwell MD Unavailable Reason for Visit * Auth/Cert (Routine) Specialty Diagnoses / Procedures Referred By Yusuf t Referred To Contact Referral ID Status Reason Start Date Expiration Date Visits Re quested Visits Authorized [id number] 1 5 Encounter Details Date Type Department Care Team (Late st Contact Info) Description 11/10/2024 12:00 PM MILITARY SCIENCE INSTRUCTOR Home Care Visit [facility] [address] [place] [address] Jeanette Decker, JAY SN HOME VISIT Social History Tobacco Use Types Packs/Day Years [...] materials from doctor or pharmacy Sometimes 11/06/2024 [facility] Utilities Answer Date Recorded In the past 12 months has th e electric, gas, oil, or water company [...] often do you attend chur ch or judaism services? More than 4 times per year 11/03/2024 Do you belong to any clubs o r organizations such as mormon groups, unions, fraternal or athletic groups, or [...] place to sleep or slept in a care home (including now)? No 11/15/2023 Housing Stability Vital Sign Answer Lee e Recorded In the last 12 months, was t here a time when you were not able to pay the mortgage or rent on time? No 11/03/2024 In the past 12 months, how m any times have you moved where you were living? 0 11/03/2024 At any time in the past 12 m [facility], were you homeless or living in a care home (including now)? No 11/03/2024 Personal Safety Answer Date Recorded Have you ever been in or are you currently in a harmful physical or emotional relationship or is someone making you feel afraid or unsafe? Denies 10/31/2024 Comments No Sex and Gender Information Value Date Recorded Sex Assigned at Not on file Legal Sex Female 1:23 PM MILITARY SCIENCE INSTRUCTOR Gender Identity Not on file Sexual Orientation Not on file documented as of this encounter Last Filed Vital Signs Vital Sign Reading Time Taken Comments Blood Pressure 148/74 11/10/2024 12:07 PM MILITARY SCIENCE INSTRUCTOR Pulse 82 11/10/2024 12:07 PM MILITARY SCIENCE INSTRUCTOR Temperature 36.4 C (97.6 F) 11/10/2024 12:07 PM MILITARY SCIENCE INSTRUCTOR Respiratory Rate 18 11/10/2024 12:07 PM MILITARY SCIENCE INSTRUCTOR Oxygen Saturation 100% 11/10/2024 12:07 PM MILITARY SCIENCE INSTRUCTOR Inhaled Oxygen Concentration - - Weight - - Height - - Body Mass Index - - documented in this encounter Plan of Treatment Not on file documented as of this encounter Goals Goal Patient Goal Type Associated Problems Recent Progress Patient-Stated? Author MUKUL General Goal - Patient / caregiver verbalizes lifestyle changes necessary to meet self-care needs and executes self-care activities to utmost capability ACO Care Management On track(2024 11:17 AM MILITARY SCIENCE INSTRUCTOR) No Geneva Stacy, RN Note: Problem: At [...] ACO Care Management On track(2024 11:17 AM MILITARY SCIENCE INSTRUCTOR) No Geneva Stacy RN Note: Problem: Potential for medical complications and [...] Diagnoses Not on filedocumented in this encounter Home Health Visit - Care Plan Visit Details Visit Type -SN Home Visit Discipline -Senior Care Problems Problem Description Start Date Status Goals Interve ntions Monitor patient's vital signs every home health visit Disciplines: Skilled Disciplines, SN, PT, OT, PRIMARY CARE NURSE, ENVIRONMENTAL ENGINEERING ASSISTANT Monitor patient's vital signs every home health visit. 09/05/2024 Active 1 goal linked to scheduled/documen florence intervention 1 goal intervention scheduled/documen florence in this visit Infection Prevention Disciplines: Skilled Disciplines Infection Prevention 09/05/2024 Active 1 goal linked to scheduled/documen florence intervention 2 goal interventions scheduled/documen florence in this visit Fall Precautions/Safe ty Concerns Disciplines: Skilled Disciplines Fall precautions and general safety 09/05/2024 Active 1 goal linked to scheduled/documen florence intervention 1 goal intervention scheduled/documen florence in this visit Pain Disciplines: Core Disciplines Alteration in comfort 09/05/2024 Active 1 goal linked to scheduled/documen florence intervention 1 goal intervention scheduled/documen florence in this visit Wound Education and Management Disciplines: Core Disciplines Knowledge deficit related to wound management and risk of infection. 09/05/2024 Active 1 goal linked to scheduled/documen florence intervention 1 goal intervention scheduled/documen florence in this visit Wound Care Disciplines: Core Disciplines, Senior Care Wound care needed Site 2 Wound 09/01/2024 Incision Boone/tibia Anterior;Distal; Right 09/05/2024 Active - 1 problem intervention scheduled/documen florence in this visit Wound Education and Management Disciplines: Core Disciplines Knowledge deficit related to wound management and risk of infection. 11/06/2024 Active 1 goal linked to scheduled/documen florence intervention 1 goal intervention scheduled/documen florence in this visit Wound Care Disciplines: Core Disciplines Wound care needed 11/06/2024 Active 1 goal linked to scheduled/documen florence intervention 1 goal intervention scheduled/documen florence in this visit IV Therapy-Manageme nt, Education, and Maintenance Disciplines: Senior Care IV Management, education, and maintenance for home IV therapy. 11/06/2024 Active - 2 problem interventions scheduled/documen florence in this visit Pressure Prevention Disciplines: Skilled Disciplines Pressure Prevention 11/10/2024 Active 1 goal linked to scheduled/documen florence intervention 1 goal intervention scheduled/documen florence in this visit Goals Goal Associated Problem Outcome Goal Met? Visit Notes Measure vital signs during every home health visit during episode of care Description: Home candle molder machine to measure vital signs during every home health visit during episode of care. Monitor patient's vital signs every home health visit No Verbalize signs of infection Description: Patient/caregiver will demonstrate knowledge of infection prevention strategies by verbalizing signs and symptoms of infection. Infection Prevention No Demonstrate fall and safety precautions Description: Patient/caregiver maintains safe home environment as evidenced by remaining free from falls, injury due to falls, demonstrating safety precautions, and identifying strategies to reduce falls by 11/03/24 Fall Precautions/Safety Concerns No Report that pain has been reduced or controlled Description: Patient/caregiver/family will verbalize satisfaction with the patients level of pain and symptom control. Pain No Knowledgeable of Wound Management Description: Patient/caregiver will be knowledgeable on management of wound and when to seek medical attention as evidenced by progressive wound healing and patient/caregiver ability to verbalize signs and symptoms to report to physician or Home Health Agency. Patient will remain free of infection and able to recognize signs of infection as long as alteration in skin integrity exists or until patient is discharged from home health services. Wound Education and Management No Knowledgeable of Wound Management Description: Patient/caregiver will be knowledgeable on management of wound and when to seek medical attention as evidenced by progressive wound healing and patient/caregiver ability to verbalize signs and symptoms to report to physician or Home Health Agency. Patient will remain free of infection and able to recognize signs of infection as long as alteration in skin integrity exists or until patient is discharged from home health services. Wound Education and Management No Progression towards healing Description: Wound #3 right ankle to show progression towards healing by 11/21/24 Wound Care No Prevent development of pressure injuries Description: buttermaker continuous churn goal: The patient will maintain intact skin and avoid the development of pressure injuries within 11/28/24 Short term goal: The patient/caregiver will understand and adhere to pressure prevention interventions within 11/14/24 Pressure Prevention No Interventions Intervention Associated Problem/Goal Status Variance Visit Notes Monitor Vital Signs Description: Monitor blood pressure, pulse, oxygen saturation, respirations Problem:Monitor patient's vital signs every home health visit Goal:Measure vital signs during every home health visit during episode of care Scheduled Educate Patient on Infection Prevention Description: Instruct patient on signs and symptoms of infection IE: fever, odor, change in color, increased amount of drainage, purulent drainage, warmth. Problem:Infection Prevention Goal:Verbalize signs of infection Scheduled Educate Family on Infection Prevention Description: Instructed family on signs and symptoms of infection IE: fever, odor, change in color, increased amount of drainage, purulent drainage, warmth. Problem:Infection Prevention Goal:Verbalize signs of infection Scheduled High Fall Risk Precautions Description: Instruct patient/caregiver to use proper lighting in all areas, stand/sit up slowly, use appropriate footwear when walking, use proper assistive devices, and to keep pathways clear of cords and clutter to prevent falls. Remove/secure throw rugs. Educate patient on medications and disease processes that increase fall risk, using corrective lenses as prescribed, placing hard to reach items within reach, what to do in the event of a fall and to report any falls to the home health agency. Problem:Fall Precautions/Safety Concerns Goal:Demonstrate fall and safety precautions Scheduled Instruct on pain management techniques Description: Instruct in pharmacologic and nonpharmacologic pain management techniques. Problem:Pain Goal:Report that pain has been reduced or controlled Scheduled Educate on Wound Care Management Description: Instruct patient/caregiver on wound management including: ordered wound care, utilizing clean technique, appropriate hand hygiene, and disposal of dressings. Instruct patient/caregiver on nutrition and hydration needs for altered skin integrity, signs and symptoms of infection and/or wound deterioration to report to home health agency and or physician. Problem:Wound Education and Management Goal:Knowledgeable of Wound Management Scheduled Perform dressing change Description: Wound #2 right boone/tibia You have Restrata, a non-biologic, electrospun fiber matrix, on your surgical wounds. It is important that this stays moist. Please change your dressings daily. The dressing should be changed daily with adaptic/Vaseline gauze, 4x4x, ABD, and erin wrap. Do not remove sutures. Please contact the office for questions about the dressing. per Dr. Mcgowan discharge paperwork Problem:Wound Care Scheduled Educate on Wound Care Management Description: Instruct patient/caregiver on wound management including: ordered wound care, utilizing clean technique, appropriate hand hygiene, and disposal of dressings. Instruct patient/caregiver on nutrition and hydration needs for alt ered skin integrity, signs and symptoms of infection and/or wound deterioration to report to home health agency and or physician. Problem:Wound Education and Management Goal:Knowledgeable of Wound Management Scheduled Perform dressing change Description: Wound #3 right ankle you have Restrata, a non-biologic, electrospun fiber matrix, on your surgical wounds. It is important that this stays moist. Please change your dressings daily. The dressing should be changed daily with adaptic/Vaseline gauze, 4x4x, ABD, and erin wrap. Do not remove sutures. Please contact the office for questions about the wound Dr Mcgowan, discharge paperwork Problem:Wound Care Goal:Progression towards healing Scheduled PICC Line Description: PICC Line with single Lumens. Change PICC line dressing within 48 hours if there is gauze under the occlusive dressing. Change dressing weekly and PRN if lifted/detached on any border edge or within transparent portion of dressing; visibly soiled; presence of moisture, drainage, or blood. Clean insertion site with secure with statlock apply transparent dressing. Instruct patient/caregiver on flushing line with 5ml normal saline and then Heparin 10 U per 2-5 ml daily and PRN for problems. Patient/caregiver may do in SN absence Skilled Nurse to place needleless access device, extension tubing, and disinfecting caps to the end of each line. Skilled Nurse to measure line migration and arm circumference at start of care and weekly with dressing change. If patient has PICC line Instruct patient/caregiver to assess insertion site every 4 hours during waking hours for signs of complications and to report signs/symptoms or altered dressing integrity immediately, and on no t allowing blood pressures or needle sticks to be done in PICC line arm. Problem:IV Therapy-Management, Education, and Maintenance Scheduled IV Management and Education Description: Instruct patient/caregiver on Reason for Therapy: daptomycin to assess the insertion site once a day if not in use for continuous infusion, how to gather supplies, how to restock IV supplies in the home, prepare supplies, inspectin g solution and supplies before infusing. Skilled Nurse to instruct patient/caregiver on how to properly administer medication, normal saline, and heparin, disconnecting IV medication and waste disposal. Skilled nurse to instruct patient and caregiver to monitor for signs and symptoms of adverse medication reaction such as: Redness, warmth, drainage, temp above 100.5, rash, shortness of breath, tingling, numbness, restlessness, nausea and vomiting and to report to SN or physician. Skilled nurse to instruct patient to contact home health agency if line is not functioning properly. Instruct on operation and management of infusion device- Instruct patient/caregiver on infection prevention and signs of complications such as; Proper hand hygiene and use of gloves, safe use and cleaning of equipment, cleaning IV connections with alcohol prep, allowing to dry before attaching any syringe/tubing, using alcohol caps on all lumens of each line and on extension tubing when attached to a lumen, if infusion tubing is to be used for additional administration in a 24 hour period apply an end cap to infusion tubing, if transp arent dressing is occlusive patient may shower, instruct patient to cover dressing. Signs of complications: Evidence of dislodgement, redness, tenderness, swelling, infiltration, induration, drainage, pain, temperate greater than 100.5, paresthesia, Numbness or tingling in extremity on side of access device, and to notify home heal th nurse or physician for any signs and symptoms of infection. Problem:IV Therapy-Management, Education, and Maintenance Scheduled Instruct on Pressure Prevention Description: Instruct patient/caregiver on inspecting the skin regularly for signs of impaired skin integrity, repositioning the patient on an individualized schedule according to the patient's tissue tolerance, skin condition, mobility, medical condition, and treatment goals. Avoid vigorous massage and emphasize the importance of increasing activity and mobility. Avoid using donut-shaped devices and foam cutouts for pressure redistribution. Determine if patient is using or needs a pressure reduction surface. Instruct patient/caregiver on using moisture barriers and absorbent pads/briefs as needed, avoiding prolonged skin contact with wet materials, and cleaning and drying skin thoroughly after incontinence episodes. If patient is malnourished instruct patient/caregiver on physician ordered diet, increased fluid intake if not contraindicated, and a list of possible protein sources to promote skin integrity. Problem:Pressure Prevention Goal:Prevent development of pressure injuries Scheduled documented in this encounter Care Teams Coil Cleaner Relationship Specialty Start Date End Date Aaron Camargo MD [address] [facility] [address] [place] [address] PCP - General Family Medicine 02/05/24 Geneva Stacy RN [address] [place] [address] [address] [place] [address] Computer Builder 09/03/24 Florentino Mcgowan MD [address] [facility] [address] [place] [address] Consulting Physician Orthopedic Surgery 10/08/24 Juan Jose Caldwell MD [address] [place] [address] Consulting Physician Infectious Diseases 11/02/24 documented as of this encounter
--- OUTSIDE RECORDS SUMMARY | 2024-11-10 17:36 | XMS_ITS | Encounter Summary ---
Author Organization [facility] Address [address] [place] [address] Phone Care Team Providers Care Hog Sawyer Name Role Phone Aaron Camargo MD Primary Care Provider Geneva Stacy RN Unavailable Florentino Mcgowan MD Unavailable [phone] Juan Jose Caldwell MD Unavailable Encounter Details Date Type Department Care Team (Late st Contact Info) Description 11/10/2024 Telephone [facility] Infectious Diseases [address] [place] [address] [address] [place] [address] Donta Mercedes Jr., RN Social History Tobacco Use Types Packs/Day Years [...] materials from doctor or pharmacy Sometimes 11/06/2024 [facility] Utilities Answer Date Recorded In the past 12 months has e [employer] gas, oil, or water [employer] threatened to shut off services in your [...] often do you attend chur ch or caodaism services? More than 4 times per year 11/03/2024 Do you belong to any clubs o r organizations such as bahai groups, unions, fraternal or athletic groups, or [...] place to sleep or slept in a long term (including now)? No 11/15/2023 Housing Stability Vital Sign Answer Lee e Recorded In the last 12 months, was t here a time when you were not able to pay the mortgage or rent on time? No 11/03/2024 In the past 12 months, how m any times have you moved where you were living? 0 11/03/2024 At any time in the past 12 m [facility], were you homeless or living in a long term (including now)? No 11/03/2024 Personal Safety Answer Date Recorded Have you ever been in or are you currently in a harmful physical or emotional relationship or is someone making you feel afraid or unsafe? Denies 10/31/2024 Comments No Sex and Gender Information Value Date Recorded Sex Assigned at Not on file Legal Sex Female 1:23 PM NET TRAINER Gender Identity Not on file Sexual Orientation Not on file documented as of this encounter Miscellaneous Notes * Telephone Encounter - Donta Mercedes Jr., RN - 11/10/2024 2:12 PM CST ----- Message from Enoch Heller sent at 11/10/2024 1:50 PM NET TRAINER ----- Regarding: RE: Cathflo It is covered, will send out per protocol. ----- Message ----- From: Donta Mercedes Jr., RN Sent: 11/10/2024 1:01 PM NET TRAINER To: Katy Whiteside RN; # Subject: FW: Cathflo Is pt able to receive in home? If so ok to give per protocol ----- Message ----- From: Donta Mercedes Jr., RN Sent: 11/10/2024 1:00 PM NET TRAINER To: Donta Mercedes Jr., RN Subject: FW: Cathflo ----- Message ----- From: Enoch Guan [facility] Sent: 11/10/2024 12:58 PM NET TRAINER To: Jason Macias Nurse Pool Subject: Cathflo Pt needing cathflo for line patency. TRAINER documented in this encounter Plan of Treatment Not on file documented as of this encounter Goals Goal Patient Goal Type Associated Problems Recent Progress Patient-Stated? Author MUKUL General Goal - Patient / caregiver verbalizes lifestyle changes necessary to meet self-care needs and executes self-care activities to utmost capability ACO Care Management On track(2024 11:17 AM NET TRAINER) Geneva Cannon, JAY Note: Problem: At Risk for Self Care [...] need for assistive devices. - Refer to if appropriate and patient is agreeable. MUKUL General Goal - Patient schedules and keeps appointments with all recommended providers ACO Care Management On track(2024 11:17 AM NET TRAINER) Geneva Cannon RN Note: Problem: Potential for medical complications [...] Diagnoses Not on filedocumented in this encounter Care Teams Hog Sawyer Relationship Specialty Start Date End Date Aaron Camargo MD [address] [facility] [address] [place] [address] PCP - General Family Medicine 02/05/24 Geneva Stacy RN [address] [place] [address] [address] [place] [address] Die Lay Out Worker 09/03/24 Florentino Mcgowan MD [address] [facility] [address] [place] [address] Consulting Physician Orthopedic Surgery 10/08/24 Juan Jose Caldwell MD [address] [place] [address] Consulting Physician Infectious Diseases 11/02/24 documented as of this encounter
--- OUTSIDE RECORDS SUMMARY | 2024-11-10 17:36 | XMS_ITS | Referral Summary ---
Author Organization [facility] Address [facility] [place] [address] Care Team Providers Care Structural Drafter Name Role Phone Aaron Camargo MD Primary Care Provider Geneva Stacy RN Unavailable Florentino Mcgowan MD Unavailable uJan Jose Caldwell MD Unavailable Encounters Date Type Department Care Team Description 11/10/2024 Telephone [facility] Infectious Diseases [address] [place] [phone] Donta Mercedes Jr., JAY 11/10/2024 Orders Only [facility] Home Care Services [address] [place], [place] [phone] Enoch Guan, [facility] 11/10/2024 12:00 PM AVIATION ORDNANCE OFFICER Home Care Visit [facility] [address] [place] [phone] Jeanette Decker, JAY SN HOME VISIT 11/07/2024 Documentation [facility] Infectious Diseases [address] [place] [phone] Donta Mercedes Jr., JAY 11/06/2024 Telephone [facility] Infectious Diseases [address] [place] [phone] Oneida Sullivan CMA 11/06/2024 Plan of Care Documentation [facility] [address] [place] [phone] 11/06/2024 Telephone [facility] Medical Group Primary Care at [address] [phone] Aaron Camargo MD Appointment Request 11/06/2024 12:00 PM AVIATION ORDNANCE OFFICER Home Care Visit [address] [phone] Sergio Santa, JAY SN OASIS RESUMPTION OF CARE 11/05/2024 Orders Only [facility] Home Care Services [address] [place] [address] Enoch Guan, [facility] 10/28/2024 5:53 PM AVIATION ORDNANCE OFFICER - 11/05/2024 3:53 PM AVIATION ORDNANCE OFFICER Hospital Encounter [address] [phone] Pet, MD Juan M Appiah Mitchel Robert, MD Closed trimalleolar fracture of right ankle with routine healing, subsequent encounter (Primary Dx); Surgical site infection [T81.49XA] Discharge Disposition: Discharge to home, home health skilled care 11/04/2024 9:02 PM AVIATION ORDNANCE OFFICER - 11/04/2024 11:59 PM AVIATION ORDNANCE OFFICER Hospital Encounter [facility] [address] [place] [address] 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 Operating Room [address] [place] [phone] Pio Bauer MD PhD Hetal Escobar CASE PLANNER 10/31/2024 1:30 PM AVIATION ORDNANCE OFFICER - 10/31/2024 3:30 PM AVIATION ORDNANCE OFFICER Surgery [facility] Operating Room [address] [place] [phone] Florentino Mcgowan MD IRRIGATION AND DEBRIDEMENT - LEG, SKIN GRAFT, WOUND VAC PLACEMENT 10/29/2024 4:18 PM AVIATION ORDNANCE OFFICER Anesthesia Event [facility] Operating Room [address] [place] [phone] Sofya Nesbitt MD PhD Alejandra Serna MLT 10/29/2024 2:46 PM AVIATION ORDNANCE OFFICER - 10/29/2024 4:46 PM AVIATION ORDNANCE OFFICER Surgery [facility] Operating Room [address] [place] [phone] Florentino Mcgowan MD IRRIGATION AND DEBRIDEMENT - LEG 10/28/2024 Home Care Visit [address] [phone] Apple Diaz, PT PT OASIS TRANSFER W/OUT DC 10/28/2024 Orders Only [facility] Medical Group Primary Care at [address] [phone] ProviderDivya MD 10/28/2024 3:30 PM AVIATION ORDNANCE OFFICER - 10/28/2024 11:59 PM AVIATION ORDNANCE OFFICER Hospital Encounter [facility] [address] [place] [address] Closed trimalleolar fracture of right ankle with routine healing, subsequent encounter Discharge Disposition: Discharge to home or self care 10/28/2024 3:30 PM AVIATION ORDNANCE OFFICER Office Visit [facility] Orthopaedic Surgery [address] [place] [address] [facility] 6th [place] [address] [place] [phone] Florentino Mcgowan MD Closed trimalleolar fracture of right ankle with routine healing, subsequent encounter (Primary Dx) 10/22/2024 Telephone [facility] Orthopaedic Surgery [address] [place] [address] 6th [place] [address] [place] [address] Lyric Mcmahon MS 10/13/2024 Telephone [facility] Medical [facility] Primary Care at [address] [phone] Lorie Gary MA 10/09/2024 Telephone [facility] Primary Care at [address] [phone] Aaron Camargo MD Medical Question/Miscellaneo us 10/07/2024 4:00 PM AVIATION ORDNANCE OFFICER Office Visit [facility] Primary Care at [address] [phone] Aaron Camargo MD Closed trimalleolar fracture of right ankle, sequela (Primary Dx) 10/06/2024 Telephone [facility] Primary Care at [address] [phone] Aaron Camargo MD Case Management- Medication 10/02/2024 1:00 PM AVIATION ORDNANCE OFFICER Home Care Visit [address] [phone] Apple Diaz, PT PT REASSESSMENT 10/09/2024 Plan of Care Documentation [address] [phone] 09/30/2024 Home Care Visit [address] [phone] Sarah Rivera OT OT DISCIPLINE DISCHARGE 09/30/2024 1:30 PM AVIATION ORDNANCE OFFICER Home Care Visit [address] [phone] Sarah Rivera OT OT OASIS START OF CARE 09/26/2024 12:30 PM AVIATION ORDNANCE OFFICER Home Care Visit [address] [phone] Mitzi Hernandez, LINEN WORKER PT HOME VISIT 09/23/2024 Home Care Visit [address] [phone] Sarah Rivera, OT OT COVERAGE CHG OASIS DC 09/22/2024 1:15 PM AVIATION ORDNANCE OFFICER Clinical Support [facility] Orthopaedic Surgery [address] [facility] 6th [place] [address] [place] [address] Makayla Decker MD Closed trimalleolar fracture of right ankle, initial encounter (Primary Dx) 09/16/2024 Home Care Visit [address] [phone] Alejandrina Antonio, MATHEMATICS FACULTY MEMBER DINNER COOK DISCIPLINE DISCHARGE 09/16/2024 12:00 PM AVIATION ORDNANCE OFFICER Home Care Visit [address] [phone] Alejandrina Antonio, MAXIME DINNER COOK INITIAL EVAL 09/16/2024 12:00 PM AVIATION ORDNANCE OFFICER Home Care Visit [address] [phone] Sarah Rivera, OT OT HOME VISIT 09/15/2024 Home Care Visit [address] [phone] Alejandrina Antonio LCSW CASE COMMUNICATION 09/15/2024 11:15 AM AVIATION ORDNANCE OFFICER Home Care Visit [address] [phone] Mitzi Hernandez, LINEN WORKER PT HOME VISIT 09/12/[address] [phone] Duglas Gusman, RN 09/09/2024 Home Care Visit [address] [phone] Apple Diaz, PT CARE CONFERENCE 09/08/2024 Home Care Visit [facility] [address] [phone] Audrey Loza, JAY NURSE MED RECON FOR THERAPY 09/08/2024 Telephone [facility] Medical [facility] Primary Care at [address] [phone] Lorie Gary MA 09/08/2024 12:30 PM AVIATION ORDNANCE OFFICER Home Care Visit [address] [phone] Sarah Rivera, OT OT INITIAL EVALUATION 09/07/2024 Home Care Visit [address] [phone] Audrey Loza RN NURSE MED RECON FOR THERAPY 09/05/2024 Plan of Care Documentation [address] [phone] 09/05/2024 10:30 AM AVIATION ORDNANCE OFFICER Home Care Visit [address] [phone] Apple Diaz, PT PT OASIS START OF CARE 09/04/2024 Telephone [facility] Medical [facility] Primary Care at [address] [phone] Aaron Camargo MD Case Management- Medication; Appointment Request 08/28/2024 2:31 PM AVIATION ORDNANCE OFFICER - 09/02/2024 7:04 PM AVIATION ORDNANCE OFFICER Hospital Encounter [address] [phone] Tawanda Bah MD Fredrickson, Caleb James, MD Kipfer, Savannah Christine, DO Chopra, initial encounter (Primary Dx); Tibia/fibula fracture, right, closed, initial encounter; Closed trimalleolar fracture of right ankle with routine healing, subsequent encounter; Closed trimalleolar fracture of right ankle, initial encounter [S82.851G]; Goiter, lucille Discharge Disposition: Discharge to home or self care 09/01/2024 7:25 AM AVIATION ORDNANCE OFFICER Anesthesia Event [facility] Operating Room [address] [place] [address] Selene Muñoz MD Huang, Shun, MD PhD 09/01/2024 7:30 AM AVIATION ORDNANCE OFFICER - 09/01/2024 10:45 AM AVIATION ORDNANCE OFFICER Surgery [facility] Operating Room [address] [place] [phone] Florentino Mcgowan MD REMOVAL EXTERNAL FIXATION DEVICE LOWER EXTREMITY 08/29/2024 10:35 AM AVIATION ORDNANCE OFFICER Anesthesia Event [facility] Operating Room [address] [place] [phone] Selene Muñoz MD Lee, Woo Kyung, MD 08/29/2024 10:50 AM AVIATION ORDNANCE OFFICER - 08/29/2024 12:25 PM AVIATION ORDNANCE OFFICER Surgery [facility] Operating Room [address] [place] [phone] Harjinder Obrien MD APPLICATION EXTERNAL FIXATION DEVICE LOWER EXTREMITY 08/18/2024 9:30 AM AVIATION ORDNANCE OFFICER Office Visit [facility] Medical Group Primary Care at [address] [phone] Aaron Camargo MD Encounter for Medicare annual wellness exam (Primary Dx); Hypertension associated with diabetes (HCC); Stage 3b chronic kidney disease (HCC); Type 2 diabetes mellitus with hyperlipidemia (HCC) from Last 3 Months Allergies No known active allergies Medications bisoprolol (ZEBETA) 5 mg tabletIndicatio ns:Myocardial Reinfarction Prevention Take 1 tablet (5 mg total) by mouth daily 90 tablet 3 024 2024 Active atorvastatin (LIPITOR) 10 mg tabletIndicatio ns:hyperlipidem ia Take 1 tablet (10 mg total) by mouth daily 90 tablet 3 024 2024 Active furosemide (LASIX) 20 mg tabletIndicatio ns:Edema Take 1 tablet (20 mg total) by mouth every other day 45 tablet 3 024 2024 Active losartan (COZAAR) 25 mg tabletIndicatio ns:hypertension Take 1 tablet (25 mg total) by mouth daily 30 tablet 11 024 2024 Active sodium chloride 0.9% injection Administer 10-40 mL into catheter every 12 (twelve) hours Active sodium chloride 0.9% injection Administer 10-20 mL into catheter as needed for line care Active heparin 10 unit/mL syringeIndicati ons:Maintain Patency of Indwelling Vascular Catheter Administer 2-5 mL (20-50 Units total) into catheter as needed (with each use) Active heparin 10 unit/mL syringeIndicati ons:Maintain Patency of Indwelling Vascular Catheter Administer 5 mL (50 Units total) into catheter every 12 (twelve) hours Active DAPTOmycin (CUBICIN) 500 mg injectionIndica tions:Skin/Soft Tissue Infection Infuse 10 mL (500 mg total) into a venous catheter daily 2024 Active traMADoL (ULTRAM) 50 mg tablet Take 1 tablet (50 mg total) by mouth every 6 (six) hours as needed for pain for up to 20 doses 20 tablet Active senna-docusate (PERICOLACE) 8.6-50 mgIndications:c onstipation Take 2 tablets by mouth 2 (two) times a day 60 tablet Active metroNIDAZOLE (FLAGYL) 500 mg tabletIndicatio ns:Bone/Joint Infection Take 1 tablet (500 mg total) by mouth 2 (two) times a day 70 tablet 2024 Active methocarbamoL (ROBAXIN) 500 mg tablet Take 1 tablet (500 mg total) by mouth 3 (three) times a day 30 tablet Active aspirin 81 mg enteric coated tablet Take 1 tablet (81 mg total) by mouth 2 (two) times a day for 14 days 28 tablet 025 2024 Active acetaminophen (TYLENOL) 325 mg tablet Take 2 tablets (650 mg total) by mouth every 6 (six) hours 90 tablet Active amLODIPine (NORVASC) 10 mg tabletIndicatio ns:hypertension Take 1 tablet (10 mg total) by mouth daily 30 tablet 025 2024 Active alteplase (CATHFLO ACTIVASE) 2 mg injection 2 mL (2 mg total) once RN to reconstitute vial with 2.2ml Sterile Water just prior to administration. RN to instill Alteplase 2mg/2.2ml to catheter and allow to dwell for at least 30 minutes to restore catheter patency. 025 Active amLODIPine (NORVASC) 10 mg tabletIndicatio ns:hypertension Take 1 tablet (10 mg total) by mouth daily 30 tablet 024 2024 Discontinued acetaminophen 500 mg capsuleIndicati ons:Pain Take 2 capsules (1,000 mg total) by mouth every 6 (six) hours as needed (pain) 60 tablet 024 2024 Discontinued(S top Taking at Discharge) cyclobenzaprine (FLEXERIL) 5 mg tabletIndicatio ns:Muscle Spasm Take 1 tablet (5 mg total) by mouth 3 (three) times a day as needed for muscle spasms 45 tablet 024 2024 Discontinued(T herapy completed) gabapentin (NEURONTIN) 100 mg capsuleIndicati ons:Neuropathic Pain Take 2 capsules (200 mg total) by mouth 3 (three) times a day 180 capsule 024 2024 Discontinued(T herapy completed) senna (SENOKOT) 8.6 mg tabletIndicatio ns:constipation Take 1 tablet by mouth 2 (two) times a day 40 tablet 024 2024 Discontinued(S top Taking at Discharge) aspirin 81 mg enteric coated tabletIndicatio ns:prevention of thrombosis Take 1 tablet (81 mg total) by mouth 2 (two) times a day for 14 days 28 tablet 024 2024 Discontinued(T herapy completed) traMADoL (ULTRAM) 50 mg tabletIndicatio ns:Pain Take 1 tablet (50 mg total) by mouth every 6 (six) hours as needed for pain 20 tablet 024 2024 Discontinued(R eorder) apixaban (ELIQUIS) 5 mg tabletIndicatio ns:Venous Thrombosis Take 1 tablet (5 mg total) by mouth 2 (two) times a day rx# [id number] per TONI Melo for Dr Camargo on 09/08/24 508pm 2024 Discontinued(S top Taking at Discharge) ibuprofen 200 mg tab/capIndicati ons:Pain Take 1 tablet/capsule (200 mg total) by mouth 2 (two) times a day as needed for pain 2024 Discontinued(S top Taking at Discharge) DUCODYL, BISACODYL, ORALIndications :constipatio Take 10 mg by mouth daily as needed (constipation). Indications: constipatio 2024 Discontinued(S top Taking at Discharge) cephalexin (KEFLEX) 500 mg capsuleIndicati ons:Closed trimalleolar fracture of right ankle, sequela Take 1 capsule (500 mg total) by mouth 2 (two) times a day for 7 days 14 capsule 025 2024 traMADoL (ULTRAM) 50 mg tabletIndicatio ns:Pain Take 1 tablet (50 mg total) by mouth every 6 (six) hours as needed for pain 20 tablet 025 2024 Discontinued(T herapy completed) clindamycin (CLEOCIN) 300 mg capsule 025 2024 Discontinued(S top Taking at Discharge) HYDROcodone-erin taminophen (NORCO) 5-325 mg per tablet 025 2024 Discontinued(S top Taking at Discharge) HYDROcodone-erin taminophen (NORCO) 5-325 mg per tabletIndicatio ns:Pain Take 1-2 tablets by mouth every 4 (four) hours as needed for pain for up to 40 doses 40 tablet 025 2024 Discontinued(S top Taking at Discharge) Active Problems Problem Noted Date Diagnosed Date Surgical site infection 10/28/2024 Assessment & Plan (11/03/2024 1:32 PM AVIATION ORDNANCE OFFICER): Rylee York is a 74 y.o. female with PMH T2DM, HLD, HTN, CKD stage 3, presenting with incision dehiscence of R. Ankle. In August,, she fell and fractured her right ankle. Underwent Ex fix on 08/29/24, and removal of Exfix, ORIF R. Ankle on 09/01/24. At surgery follow up on 10/28/24 she reported redness and drainage of incision which started 2-3 weeks prior. She was admitted and went to the OR with Ortho Surgery on 10/29/24 for right ankle I&D, and partial removal of hardware. Debridement was to the bone and gross contamination was noted intraoperatively. OR cultures were taken which are positive for MSSA, Enterococcus faecalis, Staph lugduneensis, and Mixed microorganisms. She was started postoperatively on vancomycin and cefepime. Recommending to treat right ankle infection with retained hardware for 6 weeks (10/29/24-12/10/24) with daptomcyin and metronidazole. She will then need suppression due to retained hardware. (Augmentin is a suppression possibility). Could consider early PO switch at ID clinic follow up pending evaluation. Recommendations: - Discontinue IV vancomycin and cefepime - Start daptomycin 8mg (500mg) IV q24hr and metronidazole 500mg PO BID (ordered) - Baseline CK: 60 - Monitor minimum weekly CBC w/ diff and CMP's, twice weekly CPK's - Okay by ID to place PICC line for mcc IV antibiotics - ID is formally signing off but will continue to monitor patient peripherally while inpatient. Recommending to treat right ankle infection with retained hardware for 6 weeks (10/29/24-12/10/24) with daptomcyin and metronidazole with possible early PO switch at ID follow up. Please see sign off note from 11/03/24 for complete recommendations. Acute pain 08/30/2024 Assessment & Plan (08/30/2024 2:23 PM AVIATION ORDNANCE OFFICER): 08/30 oxycodone adjusted to tramadol per pt request Trimalleolar fracture of right ankle 08/29/2024 Assessment & Plan (09/01/2024 12:37 PM AVIATION ORDNANCE OFFICER): - Ortho consult - OR 08/29 Ex-Fix Right Ankle - OR 09/01 ORIF - NWB RLE - PT/OT, pain control DVT ppx: ASA 81mg BID x 2 weeks at discharge (unilateral LE injury) - Maintain surgical dressing until follow up - Splint to stay in place until follow up - CAM boot to be brought to follow up appointment Discharge planning issues 08/29/2024 Assessment & Plan (09/02/2024 12:15 PM AVIATION ORDNANCE OFFICER): 08/29: new admission overnight, OR with ortho 09/01: OR with ortho for ORIF of R ankle, PT/OT, ADD 09/02 09/02: Patient is medically stable for discharge, SW/CM updated. Discharge pending nothing, patient discharging home Treatment note [x] HLD (hyperlipidemia) 08/29/2024 Assessment & Plan (08/29/2024 9:47 AM AVIATION ORDNANCE OFFICER): Atorvastatin 10mg continued Goiter, nodular 08/29/2024 Assessment & Plan (09/02/2024 12:20 PM AVIATION ORDNANCE OFFICER): #Large multinodular goiter - Incidental finding on C spine CT - Was previously seen on CT in Oct 2023, lost to follow up - Patient is aware of this incidental finding (discussed on 08/29) - TSH wnl - Thyroid ultrasound ordered while inpatient, pt needs outpatient US Fall, initial encounter 08/28/2024 Assessment & Plan (08/29/2024 9:02 AM AVIATION ORDNANCE OFFICER): - Mechanical fall down ~13 steps - HCT, C spine CT Encounter for Medicare annual wellness exam 07/26 Assessment & Plan (08/18/2024 9:38 AM AVIATION ORDNANCE OFFICER): A(n) yearly Medicare Annual Wellness Visit has been performed today. Rylee York is not up to date on screening tests. She is in need of DEXA and Breast cancer screening. She is not up to date on needed preventative vaccinations; She is in need of Tdap/Td and Influenza. We discussed healthy lifestyle habits, educational material has been given. Medications reviewed, changes documented as per the medical record and discussed with patient along with risks vs benefits. Specific topics reviewed: drugs, ETOH, and tobacco, importance of regular dental care, importance of regular exercise, importance of varied diet, limit TV, media violence, minimize junk food, and seat belts. Return in 3 months Positive colorectal cancer screening using Colog uard test 05/23/2024 Positive colorectal cancer s creening using DNA-based stool test 04/01/2024 Encounter for screening for malignant neoplasm o f colon 04/01/2024 CKD (chronic kidney disease) stage 3, GFR 30-59 ml/min 03/05/2024 Assessment & Plan (09/02/2024 12:14 PM AVIATION ORDNANCE OFFICER): - Cr 0.89 on admission 08/30 Cr 1.1 -encouraged PO 08/31 1.7-->1 l Bolus 09/01 Cr 1.06 Other thrombophilia 02/05/2024 Establishing care with new doctor, encounter for 02/05/2024 Assessment & Plan (02/05/2024 10:24 AM CDT): A(n) initial visit to establish care has been performed today. Rylee York is not up to date on screening tests. She is in need of DEXA, Breast cancer screening, Hepatitis B and C, Colon cancer screening, and Diabetic kidney disease screening. She is not up to date on needed preventative vaccinations; She is in need of Tdap/Td and Pneumonia (Prevnar-13 or Pneumovax-23). We discussed healthy lifestyle habits, educational material has been given. Medications reviewed, changes documented as per the medical record and discussed with patient along with risks vs benefits. Return in 1 month Hypertensive urgency 11/14/2023 Essential hypertension 05/03/2011 Assessment & Plan (09/02/2024 12:15 PM AVIATION ORDNANCE OFFICER): - hypertensive emergency on admission, hydralazine given - PO amlodipine 5mg and Losartan 25mg continued (home meds) - 08/30 SBP 140-150 Norvasc incr to 10 - PO Lasix 20 every other day (home med) - Patient instructed to follow up with PCP for medication adjustment. Type 2 diabetes mellitus with hyperlipidemia 06/2011 Assessment & Plan (08/29/2024 9:07 AM AVIATION ORDNANCE OFFICER): - SSI - DM diet Type 2 diabetes mellitus without complication (C MS/HCC) 05/03/2011 Immunizations Immunization Administration Dates Next Due Influenza, Trivalent, High D ose, Split, Preservative Free, Intramuscular 11/05/2024 Influenza, Unspecified 08/18/2024(Deferr ed: Patient Refused),09/24/2023(Deferred: Patient Refused) Pneumococcal Conjugate Pcv20 02/05/2024 Social History Tobacco Use Types Packs/Day Years Used Date Smoking Tobacco: Former Cigarettes Smokeless Tobacco: Never Tobacco Cessation:Counseling Given: Not Answered OASIS D0700: Social Isolation Answer Da te [...] In the past 12 months has e [employer], [employer], or water [employer] threatened to shut off services in your [...] 11/03/2024 How often do you attend chur or moravian services? More than 4 times per year 11/03/2024 Do you belong to any clubs o r organizations such as samaritan groups, unions, fraternal or athletic groups, or [...] place to sleep or slept in a penitentiary (including now)? No 11/15/2023 Housing Stability Vital Sign Answer Lee e Recorded In the last 12 months, was t here a time when you were not able to pay the mortgage or rent on time? No 11/03/2024 In the past 12 months, how m any times have you moved where you were living? 0 11/03/2024 At any time in the past 12 [facility], were you homeless or living in a penitentiary (including now)? No 11/03/2024 Personal Safety Answer Date Recorded Have you ever been in or are you currently in a harmful physical or emotional relationship or is someone making you feel afraid or unsafe? Denies 10/31/2024 Comments No Sex and Gender Information Value Date Recorded Sex Assigned at Not on file Legal Sex Female 1:23 PM AVIATION ORDNANCE OFFICER Gender Identity Not on file Sexual Orientation Not on file Last Filed Vital Signs Vital Sign Reading Time Taken Comments Blood Pressure 148/74 11/10/2024 12:07 PM AVIATION ORDNANCE OFFICER Pulse 82 11/10/2024 12:07 PM AVIATION ORDNANCE OFFICER Temperature 36.4 C (97.6 F) 11/10/2024 12:07 PM AVIATION ORDNANCE OFFICER Respiratory Rate 18 11/10/2024 12:07 PM AVIATION ORDNANCE OFFICER Oxygen Saturation 100% 11/10/2024 12:07 PM AVIATION ORDNANCE OFFICER Inhaled Oxygen Concentration - - Weight 78 kg (172 lb) 10/30/2024 10:32 AM AVIATION ORDNANCE OFFICER Height 157.5 cm (5' 2 ) 10/28/2024 6:24 PM AVIATION ORDNANCE OFFICER Body Mass Index 31.46 10/28/2024 6:24 PM AVIATION ORDNANCE OFFICER Plan of Treatment Not on file Goals Goal Patient Goal Type Associated Problems Recent Progress Patient-Stated? Author [email or web address] General Goal - Patient / caregiver verbalizes lifestyle changes necessary to meet self-care needs and executes self-care activities to utmost capability ACO Care Management On track(2024 11:17 AM AVIATION ORDNANCE OFFICER) No Geneva Stacy, RN Note: Problem: At [...] ACO Care Management On track(2024 11:17 AM AVIATION ORDNANCE OFFICER) Geneva Cannon, RN Note: Problem: Potential for medical complications [...] orders or changes made to medication regimen. Medical Devices Implanted Type Area Environmental Services Floor Tech Device Identifier Shelf Expiration Date Model / Serial / Lot Synthes Schanz 5mm 170mm 50mm Blunt Trocar Point Xlong Screw External 294.55 - [id number] Implanted:Qty: 2 on 08/29/2024 by Harjinder Obrien MD at [facility] Right: Ankle Synthes 294.55 / / Synthes Steinmann 5mm 5.5mm 275mm Central Thread Pin Fixation Large 293.890 - [id number] Implanted:Qty: 1 on 08/29/2024 by Harjinder Obrien MD at [facility] Right: Ankle Synthes [id number] / / [employer] Screw Bone Cortical Threaded 2.7x80mm Ti Ar-20712-08 - [id number] Implanted:Qty: 2 on 09/01/2024 by Florentino Mcgowan MD at [facility] [employer] [id number] 0 / / [employer] Plate Bone T Shape 6 Hole 2 Hole Head 2.7mm Ti Ub-[id number]-88 - [id number] Implanted:Qty: 1 on 09/01/2024 by Florentino Mcgowan MD at [facility] [employer] [id number] / / [employer] Screw Bone Cortical Threaded 2.7x42mm Ti Ar-08785-18 - [id number] Implanted:Qty: 1 on 09/01/2024 by Florentino Mcgowan MD at [facility] [employer] [id number] 2 / / [employer] Screw Bone Cortical Threaded 2.7x34mm Ti Ar-09815-98 - [id number] Implanted:Qty: 1 on 09/01/2024 by Florentino Mcgowan MD at [facility] [employer] [id number] 4 / / [employer] Screw Bone Cortical Threaded 2.7x36mm Ti Ar-39743-29 - [id number] Implanted:Qty: 1 on 09/01/2024 by Florentino Mcgowan MD at [facility] [employer] [id number] 6 / / [employer] Screw Bone Threaded 2.7x40mm Ti Fs-[id number]-63 - [id number] Implanted:Qty: 1 on 09/01/2024 by Florentino Mcgowan MD at [facility] [employer] [id number]- 40 / / [employer] Low Profile Screws 3.5mm 48mm Modular Self Drill Solid Ankle Ar-8835-48 - [id number] Implanted:Qty: 1 on 09/01/2024 by Florentino Mcgowan MD at [facility] [employer] AR-8835-48 / / [employer] Screw Bone Cortical Solid Full Thread Non Locking 3.5x52mm Ss Ar-8835-52 - [id number] Implanted:Qty: 1 on 09/01/2024 by Florentino Mcgowan MD at [facility] [employer] AR-8835-52 / / 3.5 Cortical Screw Implanted:Qty: 1 on 09/01/2024 by Florentino Mcgowan MD at [facility] [employer] AR-8835-54 / / Description:inactive [employer] Screw Bone Cortical Threaded 2.7x20mm Ti Ar-96790-28 - [id number] Implanted:Qty: 1 on 09/01/2024 by Florentino Mcgowan MD at [facility] [employer] [id number] 0 / / [employer] Screw Bone Cortical Threaded 2.7x22mm Ti Ar-96787-38 - [id number] Implanted:Qty: 1 on 09/01/2024 by Florentino Mcgowan MD at [facility] [employer] AR-05317-0 2 / / [employer] Plate Bone Locking 6 Hole Right Distal Fibula Internalbrace Ss Ef-[id number]-97 - [id number] Implanted:Qty: 1 on 09/01/2024 by Florentino Mcgowan MD at [facility] [employer] AR-[id number]- 06 / / [employer] Low Profile Screws 3.5mm 12mm Modular Solid Hexalobe Self Tap Ar-8835-12 - [id number] Implanted:Qty: 2 on 09/01/2024 by Florentino Mcgowan MD at [facility] [employer] AR-8835-12 / / [employer] Low Profile Screws 2.7mm 16mm Modular Solid Hexalobe Lock Ankle Ar-8827l-16 - [id number] Implanted:Qty: 4 on 09/01/2024 by Florentino Mcgowan MD at [facility] [employer] AR-8827L-1 6 / / [employer] Low Profile Screws 2.7mm 14mm Modular Solid Hexalobe Lock Ankle Ar-8827l-14 - [id number] Implanted:Qty: 1 on 09/01/2024 by Florentino Mcgowan MD at [facility] [employer] AR-[id number]-1 4 / / [employer] Low Profile Screws 3.5mm 14mm Modular Solid Hexalobe Lock Ankle Ar-8835l-14 - [id number] Implanted:Qty: 1 on 09/01/2024 by Florentino Mcgowan MD at [facility] [employer] AR-8835L-1 4 / / [employer] Restrata Wound Matrix 2xpq3si Synthetic Sheet Rwm1-2x2 - [id number] Implanted:Qty: 1 on 10/31/2024 by Florentino Mcgowan MD at [facility] [employer] RWM-1 2X2 / / Restrata Minimatrix Implanted:Qty: 1 on 10/31/2024 by Florentino Mcgowan MD at [facility] [employer] 05/02/2026 [id number] / / [id number] [employer] Restrata Mini Matrix 250mg Micronized Powder Rmini-250 - [id number] Implanted:Qty: 1 on 10/31/2024 by Florentino Mcgowan MD at [facility] [employer] RMINI-250 / / [id number] Procedures Procedure Name Priority Date/Time Associated Diagnosis Comments POCT GLUCOSE DEVICE Routine 11/05/2024 12:21 PM AVIATION ORDNANCE OFFICER POCT GLUCOSE DEVICE Routine 11/05/2024 7 :58 AM AVIATION [employer]DNANCE OFFICER EGFR Routine 11/05/2024 12:17 AM AVIATION [employer] OFFICER DIFFERENTIAL AUTO Routine 11/05/2024 12:17 AM AVIATION [employer] OFFICER CBC WITH AUTO DIFFERENTIAL Routine 11/05/2024 12:17 AM AVIATION [employer]CE OFFICER BASIC METABOLIC PANEL Routine 11/05/2024 12:17 AM AVIATION [employer] OFFICER HEPATITIS B SURFACE ANTIGEN Routine 11/04/2024 9:02 PM AVIATION [employer]CE OFFICER HEPATITIS C ANTIBODY Routine 11/04/2024 9:02 PM AVIATION [employer]CE OFFICER HIV 1/2 ANTIBODY PLUS P24 ANTIGEN Routine 11/04/2024 9:02 PM AVIATION [employer]DNANCE OFFICER POCT GLUCOSE DEVICE Routine 11/04/2024 7 :20 PM AVIATION ORDNANCE OFFICER URINALYSIS AND REFLEX TO MICROSCOPIC AND CULTURE STAT 11/04/2024 6:06 PM AVIATION [employer]DNANCE OFFICER POCT GLUCOSE DEVICE Routine 11/04/2024 5 :12 PM AVIATION ORDNANCE OFFICER POCT GLUCOSE DEVICE Routine 11/04/2024 12:00 PM AVIATION [employer]CE OFFICER POCT GLUCOSE DEVICE Routine 11/04/2024 8 :00 AM AVIATION [employer]CE OFFICER EGFR Routine 11/03/2024 8:19 PM AVIATION [employer]CE OFFICER DIFFERENTIAL AUTO Routine 11/03/2024 8:1 9 PM AVIATION [employer]CE OFFICER CBC WITH AUTO DIFFERENTIAL Routine 11/03/2024 8:19 PM AVIATION [employer]CE OFFICER BASIC METABOLIC PANEL Routine 11/03/2024 8:19 PM AVIATION ORDNANCE OFFICER POCT GLUCOSE DEVICE Routine 11/03/2024 7 :37 PM AVIATION [employer]DNANCE OFFICER POCT GLUCOSE DEVICE Routine 11/03/2024 5 :14 PM AVIATION [employer]NCE OFFICER CREATINE KINASE (CK), TOTAL Timed 11/03/2024 3:31 PM AVIATION [employer]DNANCE OFFICER POCT GLUCOSE DEVICE Routine 11/03/2024 11:43 AM AVIATION [employer]DNANCE OFFICER CREATINE KINASE (CK), TOTAL Routine 11/03/2024 10:10 AM AVIATION [employer]DNANCE OFFICER EGFR Routine 11/03/2024 10:10 AM AVIATION [employer]CE OFFICER DIFFERENTIAL AUTO Routine 11/03/2024 10:10 AM AVIATION [employer]CE OFFICER CBC WITH AUTO DIFFERENTIAL Routine 11/03/2024 10:10 AM AVIATION [employer]CE OFFICER BASIC METABOLIC PANEL Routine 11/03/2024 10:10 AM AVIATION [employer]DNANCE OFFICER POCT GLUCOSE DEVICE Routine 11/03/2024 8 :07 AM AVIATION [employer]DNANCE OFFICER TYPE AND SCREEN Timed 11/02/2024 10:31 PM AVIATION [employer]CE OFFICER POCT GLUCOSE DEVICE Routine 11/02/2024 7 :46 PM AVIATION [employer]DNANCE OFFICER POCT GLUCOSE DEVICE Routine 11/02/2024 6 :00 PM AVIATION [employer]DNANCE OFFICER POCT GLUCOSE DEVICE Routine 11/02/2024 1 :06 PM AVIATION [employer]NCE OFFICER POCT GLUCOSE DEVICE Routine 11/02/2024 8 :23 AM AVIATION ORDNANCE OFFICER VANCOMYCIN LEVEL TROUGH Timed 11/01/2024 9:40 PM AVIATION [employer]NCE OFFICER POCT GLUCOSE DEVICE Routine 11/01/2024 7 :46 PM AVIATION [employer]DNANCE OFFICER POCT GLUCOSE DEVICE Routine 11/01/2024 4 :49 PM AVIATION ORDNANCE OFFICER POCT GLUCOSE DEVICE Routine 11/01/2024 12:01 PM AVIATION ORDNANCE OFFICER POCT GLUCOSE DEVICE Routine 11/01/2024 8 :18 AM AVIATION ORDNANCE OFFICER VANCOMYCIN LEVEL TROUGH Timed 10/31/2024 8:30 PM AVIATION ORDNANCE OFFICER POCT GLUCOSE DEVICE Routine 10/31/2024 7 :52 PM AVIATION [employer]DNANCE OFFICER POCT GLUCOSE DEVICE Routine 10/31/2024 3 :19 PM AVIATION [employer]DNANCE OFFICER ME AN PROCEDURE PLACEHOLDER Routine 10/31/2024 2:47 PM AVIATION [employer]DNANCE OFFICER ME AN PROCEDURE PLACEHOLDER Routine 10/31/2024 2:39 PM AVIATION ORDNANCE OFFICER ME AN ELECTIVE ENDOTRACHEAL AIRWAY Routine 10/31/2024 2:39 PM AVIATION ORDNANCE OFFICER POCT GLUCOSE DEVICE Routine 10/31/2024 2 :33 PM AVIATION [employer]DNANCE OFFICER ME AN PROCEDURE PLACEHOLDER Routine 10/31/2024 2:23 PM AVIATION ORDNANCE OFFICER ME AN PROCEDURE PLACEHOLDER Routine 10/31/2024 2:20 PM AVIATION ORDNANCE OFFICER IRRIGATION AND DEBRIDEMENT - LEG 10/31/2024 1:52 PM AVIATION [employer]DNANCE OFFICER Surgical site infection POCT GLUCOSE DEVICE Routine 10/31/2024 11:49 AM AVIATION ORDNANCE OFFICER POCT GLUCOSE DEVICE Routine 10/31/2024 8 :15 AM AVIATION ORDNANCE OFFICER CBC WITHOUT DIFFERENTIAL Timed 10/31/2024 5:40 AM AVIATION ORDNANCE OFFICER POCT GLUCOSE DEVICE Routine 10/31/2024 3 :57 AM AVIATION ORDNANCE OFFICER POCT GLUCOSE DEVICE Routine 10/31/2024 12:12 AM AVIATION ORDNANCE OFFICER EGFR Timed 10/30/2024 9:21 PM AVIATION ORDNANCE OFFICER TYPE AND SCREEN Timed 10/30/2024 9:21 PM AVIATION ORDNANCE OFFICER TROPONIN I HIGH-SENSITIVITY 6-HOUR Timed 10/30/2024 9:21 PM AVIATION [employer]DNANCE OFFICER BASIC METABOLIC PANEL Timed 10/30/2024 9:21 PM AVIATION ORDNANCE OFFICER POCT GLUCOSE DEVICE Routine 10/30/2024 8 :04 PM AVIATION ORDNANCE OFFICER TROPONIN I HIGH-SENSITIVITY 2-HOUR Timed 10/30/2024 6:17 PM AVIATION ORDNANCE OFFICER POCT GLUCOSE DEVICE Routine 10/30/2024 5 :07 PM AVIATION ORDNANCE OFFICER EGFR STAT 10/30/2024 3:52 PM AVIATION ORDNANCE OFFICER MAGNESIUM STAT 10/30/2024 3:52 PM AVIATION ORDNANCE OFFICER COMPREHENSIVE METABOLIC PANEL STAT 10/30/2024 3:52 PM AVIATION ORDNANCE OFFICER CBC WITHOUT DIFFERENTIAL STAT 10/30/2024 3:52 PM AVIATION ORDNANCE OFFICER D-DIMER, QUANTITATIVE STAT 10/30/2024 3:52 PM AVIATION ORDNANCE OFFICER TROPONIN I HIGH-SENSITIVITY SERIES (BASELINE, 2HR, 4HR, 6HR) STAT 10/30/2024 3:52 PM AVIATION ORDNANCE OFFICER POCT GLUCOSE DEVICE Routine 10/30/2024 11:14 AM AVIATION ORDNANCE OFFICER POCT GLUCOSE DEVICE Routine 10/30/2024 7 :30 AM AVIATION ORDNANCE OFFICER EGFR Timed 10/29/2024 10:42 PM AVIATION ORDNANCE OFFICER BASIC METABOLIC PANEL Timed 10/29/2024 10:42 PM AVIATION ORDNANCE OFFICER CBC WITHOUT DIFFERENTIAL Timed 10/29/2024 10:42 PM AVIATION ORDNANCE OFFICER POCT GLUCOSE DEVICE Routine 10/29/2024 8 :35 PM AVIATION ORDNANCE OFFICER POCT GLUCOSE DEVICE Routine 10/29/2024 6 :14 PM AVIATION ORDNANCE OFFICER FL FLUOROSCOPY < 1 HOUR IP Routine 10/29/2024 5:34 PM AVIATION ORDNANCE OFFICER MYCOBACTERIOLOGY AFB CULTURE AND ACID-FAST STAIN Routine 10/29/2024 5:10 PM AVIATION ORDNANCE OFFICER MYCOLOGY (FUNGAL) CULTURE Routine 10/29/2024 5:10 PM AVIATION ORDNANCE OFFICER TISSUE AEROBIC AND ANAEROBIC CULTURE AND GRAM STAIN Routine 10/29/2024 5:10 PM AVIATION ORDNANCE OFFICER MYCOBACTERIOLOGY AFB CULTURE AND ACID-FAST STAIN Routine 10/29/2024 5:10 PM AVIATION ORDNANCE OFFICER MYCOLOGY (FUNGAL) CULTURE Routine 10/29/2024 5:10 PM AVIATION ORDNANCE OFFICER TISSUE AEROBIC AND ANAEROBIC CULTURE AND GRAM STAIN Routine 10/29/2024 5:10 PM AVIATION ORDNANCE OFFICER MYCOBACTERIOLOGY AFB CULTURE AND ACID-FAST STAIN Routine 10/29/2024 5:02 PM AVIATION ORDNANCE OFFICER MYCOLOGY (FUNGAL) CULTURE Routine 10/29/2024 5:02 PM AVIATION ORDNANCE OFFICER TISSUE AEROBIC AND ANAEROBIC CULTURE AND GRAM STAIN Routine 10/29/2024 5:02 PM AVIATION ORDNANCE OFFICER POCT GLUCOSE DEVICE Routine 10/29/2024 5 :00 PM AVIATION ORDNANCE OFFICER PERIPHERAL LINE Routine 10/29/2024 4:49 PM AVIATION ORDNANCE OFFICER ANESTHESIA INTUBATION Routine 10/29/2024 4:49 PM AVIATION ORDNANCE OFFICER PLACEMENT WOUND VACUUM 4:18 PM AVIATION ORDNANCE OFFICER Closed trimalleolar fracture of right ankle with routine healing, subsequent encounter REMOVAL HARDWARE ANKLE 4:18 PM AVIATION ORDNANCE OFFICER Closed trimalleolar fracture of right ankle with routine healing, subsequent encounter IRRIGATION AND DEBRIDEMENT - LEG 10/29/2024 4:18 PM AVIATION [employer]DNANCE OFFICER Closed trimalleolar fracture of right ankle with routine healing, subsequent encounter POCT GLUCOSE DEVICE Routine 10/29/2024 11:21 AM AVIATION ORDNANCE OFFICER POCT GLUCOSE DEVICE Routine 10/29/2024 7 :37 AM AVIATION ORDNANCE OFFICER URINALYSIS AND REFLEX TO MICROSCOPIC AND CULTURE Routine 10/29/2024 4:45 AM AVIATION ORDNANCE OFFICER CRP (ACUTE PHASE) Routine 10/28/2024 10:05 PM AVIATION ORDNANCE OFFICER EGFR Routine 10/28/2024 10:05 PM AVIATION ORDNANCE OFFICER TYPE AND SCREEN Timed 10/28/2024 10:05 PM AVIATION ORDNANCE OFFICER APTT Routine 10/28/2024 10:05 PM AVIATION ORDNANCE OFFICER PROTIME-INR Routine 10/28/2024 10:05 PM AVIATION ORDNANCE OFFICER CBC WITHOUT DIFFERENTIAL Routine 10/28/2024 10:05 PM AVIATION ORDNANCE OFFICER BASIC METABOLIC PANEL Routine 10/28/2024 10:05 PM AVIATION ORDNANCE OFFICER ERYTHROCYTE SEDIMENTATION RATE Routine 10/28/2024 7:55 PM AVIATION [employer]DNANCE OFFICER EGFR Routine 10/28/2024 7:55 PM AVIATION ORDNANCE OFFICER BASIC METABOLIC PANEL Routine 10/28/2024 7:55 PM AVIATION ORDNANCE OFFICER CBC WITHOUT DIFFERENTIAL Routine 10/28/2024 7:55 PM AVIATION ORDNANCE OFFICER POCT GLUCOSE DEVICE Routine 10/28/2024 7 :24 PM AVIATION ORDNANCE OFFICER XR ANKLE RIGHT 3 OR MORE VIEWS Schedule Routine, Read Routine (OP Routine) 10/28/2024 4:06 PM AVIATION [employer]DNANCE OFFICER Closed trimalleolar fracture of right ankle with routine healing, subsequent encounter XR ANKLE RIGHT 3 OR MORE VIEWS Schedule Routine, Read Routine (OP Routine) 10/26/2024 4:22 PM AVIATION [employer]NCE OFFICER US THYROID IP Routine 09/02/2024 1:54 PM AVIATION [employer]DNANCE OFFICER POCT GLUCOSE DEVICE Routine 09/02/2024 11:56 AM AVIATION ORDNANCE OFFICER POCT GLUCOSE DEVICE Routine 09/02/2024 7 :54 AM AVIATION ORDNANCE OFFICER EGFR Routine 09/01/2024 11:19 PM AVIATION ORDNANCE OFFICER MAGNESIUM Routine 09/01/2024 11:19 PM AVIATION ORDNANCE OFFICER CBC WITHOUT DIFFERENTIAL Routine 09/01/2024 11:19 PM AVIATION ORDNANCE OFFICER BASIC METABOLIC PANEL Routine 09/01/2024 11:19 PM AVIATION ORDNANCE OFFICER POCT GLUCOSE DEVICE Routine 09/01/2024 8 :27 PM AVIATION ORDNANCE OFFICER POCT GLUCOSE DEVICE Routine 09/01/2024 5 :07 PM AVIATION ORDNANCE OFFICER POCT GLUCOSE DEVICE Routine 09/01/2024 4 :49 PM AVIATION ORDNANCE OFFICER ME AN PROCEDURE PLACEHOLDER Routine 09/01/2024 1:53 PM AVIATION [employer]DNANCE OFFICER ME AN PROCEDURE PLACEHOLDER Routine 09/01/2024 1:53 PM AVIATION [employer]DNANCE OFFICER POCT GLUCOSE DEVICE Routine 09/01/2024 10:49 AM AVIATION ORDNANCE OFFICER FL FLUOROSCOPY < 1 HOUR IP Routine 09/01/2024 10:03 AM AVIATION ORDNANCE OFFICER POCT GLUCOSE DEVICE Routine 09/01/2024 8 :52 AM AVIATION ORDNANCE OFFICER ME AN PROCEDURE PLACEHOLDER Routine 09/01/2024 8:13 AM AVIATION ORDNANCE OFFICER ME AN ELECTIVE ENDOTRACHEAL AIRWAY Routine 09/01/2024 8:13 AM AVIATION ORDNANCE OFFICER OPEN REDUCTION INTERNAL FIXATION - ANKLE 09/01/2024 7:25 AM AVIATION [employer]DNANCE OFFICER Closed trimalleolar fracture of right ankle with routine healing, subsequent encounter REMOVAL EXTERNAL FIXATION DEVICE LOWER EXTREMITY 09/01/2024 7:25 AM AVIATION [employer]NCE OFFICER Closed trimalleolar fracture of right ankle with routine healing, subsequent encounter POCT GLUCOSE DEVICE Routine 09/01/2024 6 :19 AM AVIATION [employer]DNANCE OFFICER CT ANKLE RIGHT WO CONTRAST ED Urgent/IP Urgent 09/01/2024 5:25 AM AVIATION [employer]DNANCE OFFICER EGFR Routine 08/31/2024 11:09 PM AVIATION [employer]NCE OFFICER TYPE AND SCREEN Timed 08/31/2024 11:09 PM AVIATION [employer]DNANCE OFFICER PROTIME-INR Routine 08/31/2024 11:09 PM AVIATION [employer]DNANCE OFFICER MAGNESIUM Routine 08/31/2024 11:09 PM AVIATION ORDNANCE OFFICER CBC WITHOUT DIFFERENTIAL Routine 08/31/2024 11:09 PM AVIATION [employer]DNANCE OFFICER BASIC METABOLIC PANEL Routine 08/31/2024 11:09 PM AVIATION ORDNANCE OFFICER POCT GLUCOSE DEVICE Routine 08/31/2024 9 :27 PM AVIATION [employer]DNANCE OFFICER POCT GLUCOSE DEVICE Routine 08/31/2024 5 :03 PM AVIATION ORDNANCE OFFICER POCT GLUCOSE DEVICE Routine 08/31/2024 11:49 AM AVIATION ORDNANCE OFFICER POCT GLUCOSE DEVICE Routine 08/31/2024 8 :18 AM AVIATION ORDNANCE OFFICER POCT GLUCOSE DEVICE Routine 08/31/2024 6 :27 AM AVIATION ORDNANCE OFFICER EGFR Routine 08/30/2024 9:01 PM AVIATION ORDNANCE OFFICER MAGNESIUM Routine 08/30/2024 9:01 PM AVIATION [employer]DNANCE OFFICER CBC WITHOUT DIFFERENTIAL Routine 08/30/2024 9:01 PM AVIATION [employer]DNANCE OFFICER BASIC METABOLIC PANEL Routine 08/30/2024 9:01 PM AVIATION [employer]DNANCE OFFICER POCT GLUCOSE DEVICE Routine 08/30/2024 5 :47 PM AVIATION [employer]DNANCE OFFICER POCT GLUCOSE DEVICE Routine 08/30/2024 3 :50 PM AVIATION [employer]DNANCE OFFICER POCT GLUCOSE DEVICE Routine 08/30/2024 11:31 AM AVIATION ORDNANCE OFFICER POCT GLUCOSE DEVICE Routine 08/30/2024 8 :21 AM AVIATION ORDNANCE OFFICER ED CRITICAL CARE Routine 08/30/2024 7:38 AM AVIATION ORDNANCE OFFICER EGFR Routine 08/29/2024 10:44 PM AVIATION [employer]DNANCE OFFICER THYROID FUNCTION CASCADE Routine 08/29/2024 10:44 PM AVIATION ORDNANCE OFFICER MAGNESIUM Routine 08/29/2024 10:44 PM AVIATION ORDNANCE OFFICER CBC WITHOUT DIFFERENTIAL Routine 08/29/2024 10:44 PM AVIATION [employer]DNANCE OFFICER BASIC METABOLIC PANEL Routine 08/29/2024 10:44 PM AVIATION [employer]DNANCE OFFICER POCT GLUCOSE DEVICE Routine 08/29/2024 7 :29 PM AVIATION [employer]DNANCE OFFICER POCT GLUCOSE DEVICE Routine 08/29/2024 5 :21 PM AVIATION [employer]DNANCE OFFICER POCT GLUCOSE DEVICE Routine 08/29/2024 5 :08 PM AVIATION [employer]DNANCE OFFICER POCT GLUCOSE DEVICE Routine 08/29/2024 11:49 AM AVIATION ORDNANCE OFFICER FL FLUOROSCOPY < 1 HOUR IP Routine 08/29/2024 11:39 AM AVIATION ORDNANCE OFFICER POCT GLUCOSE DEVICE Routine 08/29/2024 11:09 AM AVIATION ORDNANCE OFFICER ME AN PROCEDURE PLACEHOLDER Routine 08/29/2024 11:01 AM AVIATION ORDNANCE OFFICER ME AN ELECTIVE ENDOTRACHEAL AIRWAY Routine 08/29/2024 11:01 AM AVIATION ORDNANCE OFFICER APPLICATION EXTERNAL FIXATION DEVICE LOWER EXTREMITY 08/29/2024 10:40 AM AVIATION [employer]NCE OFFICER Fall, initial encounter POCT GLUCOSE DEVICE Routine 08/29/2024 10:31 AM AVIATION ORDNANCE OFFICER ME AN PROCEDURE PLACEHOLDER Routine 08/29/2024 10:02 AM AVIATION [employer]DNANCE OFFICER ME AN PROCEDURE PLACEHOLDER Routine 08/29/2024 10:01 AM AVIATION ORDNANCE OFFICER CT HEAD AND CERVICAL SPINE WO CONTRAST ED Urgent/IP Urgent 08/29/2024 8:58 AM AVIATION ORDNANCE OFFICER POCT GLUCOSE DEVICE Routine 08/29/2024 8 :33 AM AVIATION [employer]DNANCE OFFICER POCT GLUCOSE DEVICE Routine 08/29/2024 3 :57 AM AVIATION ORDNANCE OFFICER ECG 12-LEAD Routine 08/28/2024 10:00 PM AVIATION [employer]DNANCE OFFICER LIPID PANEL Routine 08/28/2024 9:43 PM AVIATION [employer]NCE OFFICER EGFR Routine 08/28/2024 9:43 PM AVIATION [employer]DNANCE OFFICER DIFFERENTIAL AUTO Routine 08/28/2024 9:4 3 PM AVIATION [employer]DNANCE OFFICER CBC WITH AUTO DIFFERENTIAL Routine 08/28/2024 9:43 PM AVIATION [employer]DNANCE OFFICER COMPREHENSIVE METABOLIC PANEL Routine 08/28/2024 9:43 PM AVIATION ORDNANCE OFFICER PROTIME-INR Routine 08/28/2024 9:43 PM AVIATION ORDNANCE OFFICER APTT STAT 08/28/2024 9:43 PM AVIATION ORDNANCE OFFICER ED MODERATE SEDATION Routine 08/28/2024 9:11 PM AVIATION ORDNANCE OFFICER XR ANKLE RIGHT 3 OR MORE VIEWS ED 08/28/2024 8:10 PM AVIATION ORDNANCE OFFICER B CHECK SAMPLE STAT 08/28/2024 5:48 PM AVIATION ORDNANCE OFFICER XR FEMUR RIGHT 2 OR MORE VIEWS ED 08/28/2024 4:50 PM AVIATION ORDNANCE OFFICER XR SPINE THORACIC 4 OR MORE VIEWS ED 08/28/2024 4:50 PM AVIATION ORDNANCE OFFICER XR KNEE RIGHT 1 OR 2 VIEWS ED 08/28/2024 4:49 PM AVIATION ORDNANCE OFFICER XR PELVIS 1 OR 2 VIEWS ED 3:57 PM AVIATION [employer]DNANCE OFFICER XR TIBIA FIBULA RIGHT2 VIEWS ED Urgent/IP Urgent 08/28/2024 3:57 PM AVIATION [employer]DNANCE OFFICER CT BODY OUTSIDE CONSULT Routine 08/28/2024 3:42 PM AVIATION [employer]DNANCE OFFICER XR TRANSFER OF OUTSIDE FILMS Routine 08/28/2024 3:40 PM AVIATION [employer]DNANCE OFFICER XR TRANSFER OF OUTSIDE FILMS Routine 08/28/2024 3:39 PM AVIATION [employer]DNANCE OFFICER XR TRANSFER OF OUTSIDE FILMS Routine 08/28/2024 3:30 PM AVIATION [employer]DNANCE OFFICER TYPE AND SCREEN STAT 08/28/2024 3:29 PM AVIATION [employer]DNANCE OFFICER POCT GLUCOSE DEVICE Routine 08/28/2024 3 :23 PM AVIATION [employer]DNANCE OFFICER COLONOSCOPY 07/22/2024 10:32 AM CDT HM DIABETES EYE EXAM Routine 04/02/2024 2:30 PM CDT HEMOGLOBIN A1C Routine 03/05/2024 11:18 AM CDT Hypertension associated with diabetes (HCC) ALBUMIN CREATININE RATIO, URINE Routine 03/05/2024 11:18 AM CDT Hypertension associated with diabetes (HCC) from Last 3 Months or Most Recently Relevant to Health Maintenance Results * POCT glucose (11/05/2024 12:21 PM AVIATION ORDNANCE OFFICER) Glucose, POC 82 70 - 199 mg/dL Blood 11/05/2024 12:2 1 PM AVIATION [employer]DNANCE OFFICER 11/05/2024 12:21 PM AVIATION [employer]DNANCE OFFICER us Florentino Mcgowan MD LAB POCT ORDERABLES - DEV ICE Final Result [facility] Department [place] [address] * POCT glucose (11/05/2024 7:58 AM AVIATION ORDNANCE OFFICER) Pathologist [facility] Glucose, POC 82 70 - 199 mg/dL Blood 11/05/2024 7:58 AM AVIATION ORDNANCE OFFICER 11/05/2024 7:58 AM AVIATION ORDNANCE OFFICER us Florentino Mcgowan MD LAB POCT ORDERABLES - DEV ICE Final Result Performing Organization Address [facility] Co de Phone Number [facility] Department [place] [address] * (ABNORMAL) eGFR (11/05/2024 12:17 AM AVIATION ORDNANCE OFFICER) [facility] eGFR 56(L) >=60 mL/min/1. 73 m2 Comment: Interpretive Data Reference Interval Normal >/= 90 mL/min/1.73m2 Mildly decreased* 60 - 89 mL/min/1.73m2 Mildly to moderately decreased 45 - 59 mL/min/1.73m2 Moderately to severely decreased 30 - 44 mL/min/1.73m2 Severely decreased 15 - 29 mL/min/1.73m2 Kidney Failure < 15 mL/min/1.73m2 *Relative to young adult level Estimated glomerular filtration rate is determined by the 2020 CKD-EPI equation recommended by the National Kid[employer] Foundation (A Unifying Approach to GFR Estimation: Recommendations of the NKF-ASK Task Force on Reassessing the Inclusion of Race in Diagnosing Kidney Disease, JASN 2020). The CKD-EPI equation should not be used for patients with unstable renal function and has not been validated in children and those over 70. Current interpretive data was last reviewed 2021. Blood 11/05/2024 12:1 7 AM AVIATION ORDNANCE OFFICER 11/05/2024 1:17 AM AVIATION ORDNANCE OFFICER us Ashley Ramsey NP LAB BLOOD ORDERABLES Karine l Result Performing Organization Address City/[facility]/ZIP Co de Phone Number [facility] [place] [address] * Differential, auto (11/05/2024 12:17 AM AVIATION ORDNANCE OFFICER) Neutrophil abs 3.8 1.5 - 6.5 K/cumm Imm gran abs 0.0 0.0 - 0.1 K/cumm [facility] Lymphocyte abs 1.6 0.8 - 3.3 K/cumm [facility] Monocyte abs 0.3 0.2 - 0.8 K/cumm [facility] Eosinophil abs 0.1 0.0 - 0.5 K/cumm [facility] Basophil abs 0.0 0.0 - 0.1 K/cumm [facility] Neutrophil pct 64.8 % [facility] Comment: Interpretive Data Percent cell count reference ranges are not reported, since discordance with absolute values may lead to misinterpretation of CBC data. Current Interpretive Data was last revised on 2018. Imm gran pct 0.7 % [facility] Comment: Interpretive Data Percent cell count reference ranges are not reported, since discordance with absolute values may lead to misinterpretation of CBC data. Current Interpretive Data was last revised on 2018. Lymphocyte pct 27.4 % [facility] Comment: Interpretive Data Percent cell count reference ranges are not reported, since discordance with absolute values may lead to misinterpretation of CBC data. Current Interpretive Data was last revised on 2018. Monocyte pct 5.0 % [facility] Comment: Interpretive Data Percent cell count reference ranges are not reported, since discordance with absolute values may lead to misinterpretation of CBC data. Current Interpretive Data was last revised on 2018. Eosinophil pct 1.9 % [facility] Comment: Interpretive Data Percent cell count reference ranges are not reported, since discordance with absolute values may lead to misinterpretation of CBC data. Current Interpretive Data was last revised on 2018. Basophil pct 0.2 % [facility] Comment: Interpretive Data Percent cell count reference ranges are not reported, since discordance with absolute values may lead to misinterpretation of CBC data. Current Interpretive Data was last revised on 2018. Blood 11/05/2024 12:1 7 AM AVIATION [employer]DNANCE OFFICER 11/05/2024 1:17 AM AVIATION ORDNANCE OFFICER Ashley Ramsey NP LAB BLOOD ORDERABLES Karine l Result Performing Organization Address [facility] Co de Phone Number [facility] Department [place] [address] * (ABNORMAL) CBC with auto differential (11/05/2024 12:17 AM AVIATION ORDNANCE OFFICER) [facility] WBC 5.8 3.8 - 9.9 K/cumm Hgb 9.4(L) 11.9 - 15.5 g/dL [facility] Hct 29.8(L) 35.6 - 45.5 % [facility] Plt 284 150 - 400 K/cumm [facility] MPV 10.9 9.1 - 12.3 fL [facility] RBC 3.41(L) 3.90 - 5.20 M/cumm [facility] MCV 87.4 81.3 - 96.4 fL [facility] MCH 27.6 27.1 - 33.3 pg [facility] MCHC 31.5(L) 32.3 - 35.7 g/dL [facility] RDW CV 17.2(H) 11.1 - 14.9 % [facility] RDW SD 54.3(H) 35.7 - 48.1 fL [facility] NRBC abs 0.00 0.00 - 0.01 K/cumm [facility] Blood 11/05/2024 12:1 7 AM AVIATION ORDNANCE OFFICER 11/05/2024 1:17 AM AVIATION ORDNANCE OFFICER Ashley Ramsey NP LAB BLOOD ORDERABLES Karine l Result Performing Organization Address [facility] Co de Phone Number [facility] Department [place] [address] * Basic metabolic panel (11/05/2024 12:17 AM AVIATION ORDNANCE OFFICER) [facility] Sodium 145 135 - 145 mmol/L Potassium, pl 3.8 3.3 - 4.9 mmol/L [facility] Chloride 109 97 - 110 mmol/L [facility] CO2 26 22 - 32 mmol/L [facility] Anion gap 10 2 - 15 mmol/L [facility] BUN 19 6 - 25 mg/dL [facility] Creatinine 1.05 0.60 - 1.10 mg/dL [facility] Glucose 99 70 - 199 mg/dL [facility] Comment: Interpretive Data Fasting glucose >/= 126 mg/dl is diagnostic for diabetes. Fasting is defined as no caloric intake for at least 8 hours. Fasting glucose between 100 mg/dl to 125 mg/dl is diagnostic of prediabetes. In a patient with classic symptoms of hyperglycemia or hyperglycemic crisis, a random glucose >/= 200 mg/dl is diagnostic for diabetes. In the absence of unequivocal hyperglycemia, results should be confirmed by repeat testing. The classification and Diagnosis of Diabetes Diabetes Care 2021; 46: S19-S40. Current interpretive data was last revised 2022. Calcium 9.2 8.5 - 10.3 mg/dL [facility] Blood 11/05/2024 12:1 7 AM AVIATION ORDNANCE OFFICER 11/05/2024 1:17 AM AVIATION ORDNANCE OFFICER us Ashley Ramsey NP LAB BLOOD ORDERABLES Karine dhaliwal Result [facility] Department [place] [address] * HIV 1/2 Antibody plus p24 Antigen Blood (11/04/2024 9:02 PM AVIATION ORDNANCE OFFICER) HIV 1/2 ab + p24 ag Nonreactive Nonreactive Comment:Nonreactive for HIV- 1 antigen and HIV-1/HIV-2 antibodies. No laboratory evidence of HIV infection. If acute HIV infection is suspected, consider testing for HIV-1 RNA. Current interpretive data was last revised on 22. Blood 11/04/2024 9:02 PM AVIATION ORDNANCE OFFICER 11/04/2024 9:15 PM AVIATION ORDNANCE OFFICER us Notinfile Unknown LAB MICROBIOLOGY - GENERAL ORD ERABLES Final Result Performing Organization Address [facility] Co de Phone Number [facility] [place] [address] * Hepatitis C antibody Blood (11/04/2024 9:02 PM AVIATION ORDNANCE OFFICER) Pathologist [facility] [place] Hep C Ab Nonreactive Nonreactive Comment:Antibodies to HCV no t detected. Does NOT exclude the possibility of recent exposure to HCV. Current interpretive data was last revised on 22 Blood 11/04/2024 9:02 PM AVIATION ORDNANCE OFFICER 11/04/2024 9:15 PM AVIATION ORDNANCE OFFICER us Notinfile Unknown LAB MICROBIOLOGY - GENERAL ORD ERABLES Final Result Performing Organization Address [facility] Co de Phone Number [facility] [place] [address] * Hepatitis B Surface Antigen Blood (11/04/2024 9:02 PM AVIATION ORDNANCE OFFICER) [facility] HepBsAg Nonreactive Nonreactive Blood 11/04/2024 9:02 PM AVIATION ORDNANCE OFFICER 11/04/2024 9:15 PM AVIATION ORDNANCE OFFICER us Notinfile Unknown LAB MICROBIOLOGY - GENERAL ORD ERABLES Final Result Performing Organization Address [facility] Co de Phone Number [facility] [place] [address] * POCT glucose (11/04/2024 7:20 PM AVIATION ORDNANCE OFFICER) Pathologist [facility] [place] Glucose, POC 120 70 - 199 mg/dL Blood 11/04/2024 7:20 PM AVIATION ORDNANCE OFFICER 11/04/2024 7:20 PM AVIATION ORDNANCE OFFICER us Florentino Mcgowan MD LAB POCT ORDERABLES - DEV ICE Final Result Performing Organization Address [facility] Co de Phone Number [facility] [place] [address] * (ABNORMAL) Urinalysis reflex to microscopic and culture Urine (11/04/2024 6:06 PM AVIATION ORDNANCE OFFICER) Color, ur Yellow Yellow Clarity, ur Clear Clear [facility] Specific gravity, ur 1.026 1.003 - 1.030 [facility] pH, urine 5.5 [facility] Comment: Interpretive Data U rine pH is affected by diet, medications, systemic acid-base disturbances, and renal tubular function. pH may affect urinary stone formation. For example, urine pH below 6.0 may help reduce the tendency for calcium phosphate stones and pH greater than 6.0 may reduce the tendency for uric acid stone formation. Source: [facility] Monitor My Meds Current Interpretive Data was last revised on 2017 Protein, ur ql Trace Negative [facility] Glucose, ur ql Negative Negative [facility] Ketones, ur 1+(A) Negative [facility] Bilirubin, ur Negative Negative [facility] Blood, ur Negative Negative [facility] Urobilinogen, ur <2.0 <2.0 mg/dL [facility] Nitrite, ur Negative Negative [facility] Leukocyte esterase, ur Negative Negative [facility] UA reflex comment Reflex conditions for microscopic UA and culture not met. [facility] Urine 11/04/2024 6:06 PM AVIATION ORDNANCE OFFICER 11/04/2024 6:28 PM AVIATION ORDNANCE OFFICER us Ashley Ramsey NP LAB MICROBIOLOGY - GENERA L ORDERABLES Final Result Performing Organization Address City/[facility]/ZIP Co de Phone Number [facility] Department [place] [address] * POCT glucose (11/04/2024 5:12 PM AVIATION ORDNANCE OFFICER) Glucose, POC 86 70 - 199 mg/dL Blood 11/04/2024 5:12 PM AVIATION ORDNANCE OFFICER 11/04/2024 5:12 PM AVIATION ORDNANCE OFFICER us Florentino Mcgowan MD LAB POCT ORDERABLES - DEV ICE Final Result Performing Organization Address City/[facility]/ZIP Co de Phone Number [facility] Department [place] [address] * POCT glucose (11/04/2024 12:00 PM AVIATION ORDNANCE OFFICER) Glucose, POC 117 70 - 199 mg/dL Blood 11/04/2024 12:0 0 PM AVIATION ORDNANCE OFFICER 11/04/2024 12:00 PM AVIATION ORDNANCE OFFICER us Florentino Mcgowan MD LAB POCT ORDERABLES - DEV ICE Final Result Performing Organization Address City/State/[facility] Co de Phone Number [facility] [place] [address] * POCT glucose (11/04/2024 8:00 AM AVIATION ORDNANCE OFFICER) [facility] Glucose, POC 88 70 - 199 mg/dL Blood 11/04/2024 8:00 AM AVIATION ORDNANCE OFFICER 11/04/2024 8:00 AM AVIATION ORDNANCE OFFICER us Florentino Mcgowan MD LAB POCT ORDERABLES - DEV ICE Final Result Performing Organization Address City/[facility] Co de Phone Number [facility] Department [place] [address] * (ABNORMAL) eGFR (11/03/2024 8:19 PM AVIATION ORDNANCE OFFICER) [facility] eGFR 50(L) >=60 mL/min/1. 73 m2 Comment: Interpretive Data Reference Interval Normal >/= 90 mL/min/1.73m2 Mildly decreased* 60 - 89 mL/min/1.73m2 Mildly to moderately decreased 45 - 59 mL/min/1.73m2 Moderately to severely decreased 30 - 44 mL/min/1.73m2 Severely decreased 15 - 29 mL/min/1.73m2 Kidney Failure < 15 mL/min/1.73m2 *Relative to young adult level Estimated glomerular filtration rate is determined by the 2020 CKD-EPI equation recommended by the National Kidney Foundation (A Unifying Approach to GFR Estimation: Recommendations of the NKF-ASK Task Force on Reassessing the Inclusion of Race in Diagnosing Kidney Disease, JASN 202). The CKD-EPI equation should not be used for patients with unstable renal function and has not been validated in children and those over 70. Current interpretive data was last reviewed 2021. Blood 11/03/2024 8:19 PM AVIATION ORDNANCE OFFICER 11/03/2024 8:41 PM AVIATION ORDNANCE OFFICER Ashley Ramsey NP LAB BLOOD ORDERABLES Karine isra Result [facility] Department [place] [address] * Differential, auto (11/03/2024 8:19 PM AVIATION ORDNANCE OFFICER) Neutrophil abs 2.5 1.5 - 6.5 K/cumm Imm gran abs 0.0 0.0 - 0.1 K/cumm [facility] Lymphocyte abs 3.3 0.8 - 3.3 K/cumm [facility] Monocyte abs 0.3 0.2 - 0.8 K/cumm [facility] Eosinophil abs 0.1 0.0 - 0.5 K/cumm [facility] Basophil abs 0.0 0.0 - 0.1 K/cumm [facility] Neutrophil pct 39.7 % [facility] Comment: Interpretive Data Percent cell count reference ranges are not reported, since discordance with absolute values may lead to misinterpretation of CBC data. Current Interpretive Data was last revised on 2018. Imm gran pct 0.5 % [facility] Comment: Interpretive Data Percent cell count reference ranges are not reported, since discordance with absolute values may lead to misinterpretation of CBC data. Current Interpretive Data was last revised on 2018. Lymphocyte pct 53.2 % [facility] Comment: Interpretive Data Percent cell count reference ranges are not reported, since discordance with absolute values may lead to misinterpretation of CBC data. Current Interpretive Data was last revised on 2018. Monocyte pct 4.4 % [facility] Comment: Interpretive Data Percent cell count reference ranges are not reported, since discordance with absolute values may lead to misinterpretation of CBC data. Current Interpretive Data was last revised on 2018. Eosinophil pct 1.9 % [facility] Comment: Interpretive Data Percent cell count reference ranges are not reported, since discordance with absolute values may lead to misinterpretation of CBC data. Current Interpretive Data was last revised on 2018. Basophil pct 0.3 % [facility] Comment: Interpretive Data Percent cell count reference ranges are not reported, since discordance with absolute values may lead to misinterpretation of CBC data. Current Interpretive Data was last revised on 2018. Blood 11/03/2024 8:19 PM AVIATION ORDNANCE OFFICER 11/03/2024 8:41 PM AVIATION ORDNANCE OFFICER Ashley Ramsey NP LAB BLOOD ORDERABLES Karine dhaliwal Result [facility] Department [place] [address] * (ABNORMAL) CBC with auto differential (11/03/2024 8:19 PM AVIATION ORDNANCE OFFICER) WBC 6.2 3.8 - 9.9 K/cumm Hgb 9.7(L) 11.9 - 15.5 g/dL [facility] Hct 30.9(L) 35.6 - 45.5 % [facility] Plt 281 150 - 400 K/cumm [facility] MPV 10.4 9.1 - 12.3 fL [facility] RBC 3.55(L) 3.90 - 5.20 M/cumm [facility] MCV 87.0 81.3 - 96.4 fL [facility] MCH 27.3 27.1 - 33.3 pg [facility] MCHC 31.4(L) 32.3 - 35.7 g/dL [facility] RDW CV 17.0(H) 11.1 - 14.9 % [facility] RDW SD 54.2(H) 35.7 - 48.1 fL [facility] NRBC abs 0.00 0.00 - 0.01 K/cumm [facility] Blood 11/03/2024 8:19 PM AVIATION ORDNANCE OFFICER 11/03/2024 8:41 PM AVIATION ORDNANCE OFFICER Ashley Ramsey NP LAB BLOOD ORDERABLES Karine l Result Performing Organization Address City/[facility]/ZIP Co de Phone Number [facility] Department [place] [address] * (ABNORMAL) Basic metabolic panel (11/03/2024 8:19 PM AVIATION ORDNANCE OFFICER) [facility] Sodium 143 135 - 145 mmol/L Potassium, pl 3.7 3.3 - 4.9 mmol/L [facility] Chloride 107 97 - 110 mmol/L [facility] CO2 27 22 - 32 mmol/L [facility] Anion gap 9 2 - 15 mmol/L [facility] BUN 18 6 - 25 mg/dL [facility] Creatinine 1.16(H) 0.60 - 1.10 mg/dL [facility] Glucose 109 70 - 199 mg/dL [facility] Comment: Interpretive Data Fasting glucose >/= 126 mg/dl is diagnostic for diabetes. Fasting is defined as no caloric intake for at least 8 hours. Fasting glucose between 100 mg/dl to 125 mg/dl is diagnostic of prediabetes. In a patient with classic symptoms of hyperglycemia or hyperglycemic crisis, a random glucose >/= 200 mg/dl is diagnostic for diabetes. In the absence of unequivocal hyperglycemia, results should be confirmed by repeat testing. The classification and Diagnosis of Diabetes Diabetes Care 2021; 46: S19-S40. Current interpretive data was last revised 2022. Calcium 9.2 8.5 - 10.3 mg/dL [facility] Blood 11/03/2024 8:19 PM AVIATION ORDNANCE OFFICER 11/03/2024 8:41 PM AVIATION ORDNANCE OFFICER Ashley Ramsey NP LAB BLOOD ORDERABLES Karine l Result Performing Organization Address [facility]/ZIP Co de Phone Number [facility] Department [place] [address] * POCT glucose (11/03/2024 7:37 PM AVIATION ORDNANCE OFFICER) Glucose, POC 93 70 - 199 mg/dL Blood 11/03/2024 7:37 PM AVIATION ORDNANCE OFFICER 11/03/2024 7:37 PM AVIATION ORDNANCE OFFICER Florentino Mcgowan MD LAB POCT ORDERABLES - DEV ICE Final Result Performing Organization Address [facility] de Phone Number [facility] [place] [address] * POCT glucose (11/03/2024 5:14 PM AVIATION ORDNANCE OFFICER) Glucose, POC 94 70 - 199 mg/dL Blood 11/03/2024 5:14 PM AVIATION ORDNANCE OFFICER 11/03/2024 5:14 PM AVIATION ORDNANCE OFFICER Florentino Mcgowan MD LAB POCT ORDERABLES - DEV ICE Final Result Performing Organization Address [facility] de Phone Number [facility] [place] [address] * Creatine kinase (CK), total (11/03/2024 3:31 PM AVIATION ORDNANCE OFFICER) [facility] CK 61 30 - 200 Units/L Blood 11/03/2024 3:31 PM AVIATION ORDNANCE OFFICER 11/03/2024 3:43 PM AVIATION ORDNANCE OFFICER us Katy Coates NP LAB BLOOD ORDERABLES Final Result Performing Organization Address [facility] de Phone Number [facility] [place] [address] * POCT glucose (11/03/2024 11:43 AM AVIATION ORDNANCE OFFICER) Glucose, POC 108 70 - 199 mg/dL Blood 11/03/2024 11:4 3 AM AVIATION ORDNANCE OFFICER 11/03/2024 11:43 AM AVIATION ORDNANCE OFFICER us Florentino Mcgowan MD LAB POCT ORDERABLES - DEV ICE Final Result Performing Organization Address [facility] Co de Phone Number [facility] Department [place] [address] * eGFR (11/03/2024 10:10 AM AVIATION ORDNANCE OFFICER) eGFR 64 >=60 mL/min/1. 73 m2 Comment: Interpretive Data Reference Interval Normal >/= 90 mL/min/1.73m2 Mildly decreased* 60 - 89 mL/min/1.73m2 Mildly to moderately decreased 45 - 59 mL/min/1.73m2 Moderately to severely decreased 30 - 44 mL/min/1.73m2 Severely decreased 15 - 29 mL/min/1.73m2 Kidney Failure < 15 mL/min/1.73m2 *Relative to young adult level Estimated glomerular filtration rate is determined by the 2020 CKD-EPI equation recommended by the National Kidney Foundation (A Unifying Approach to GFR Estimation: Recommendations of the NKF-ASK Task Force on Reassessing the Inclusion of Race in Diagnosing Kidney Disease, JASN 2020). The CKD-EPI equation should not be used for patients with unstable renal function and has not been validated in children and those over 70. Current interpretive data was last reviewed 2021. Blood 11/03/2024 10:1 0 AM AVIATION ORDNANCE OFFICER 11/03/2024 10:28 AM AVIATION ORDNANCE OFFICER Ashley Ramsey NP LAB BLOOD ORDERABLES Karine l Result Performing Organization Address City/[facility]/ZIP Co de Phone Number [facility] Department [place] [address] * Differential, auto (11/03/2024 10:10 AM AVIATION ORDNANCE OFFICER) Neutrophil abs 2.2 1.5 - 6.5 K/cumm Imm gran abs 0.0 0.0 - 0.1 K/cumm [facility] Lymphocyte abs 2.5 0.8 - 3.3 K/cumm [facility] Monocyte abs 0.3 0.2 - 0.8 K/cumm [facility] Eosinophil abs 0.1 0.0 - 0.5 K/cumm [facility] Basophil abs 0.0 0.0 - 0.1 K/cumm [facility] Neutrophil pct 43.1 % [facility] Comment: Interpretive Data Percent cell count reference ranges are not reported, since discordance with absolute values may lead to misinterpretation of CBC data. Current Interpretive Data was last revised on 2018. Imm gran pct 0.2 % [facility] Comment: Interpretive Data Percent cell count reference ranges are not reported, since discordance with absolute values may lead to misinterpretation of CBC data. Current Interpretive Data was last revised on 2018. Lymphocyte pct 47.1 % [facility] Comment: Interpretive Data Percent cell count reference ranges are not reported, since discordance with absolute values may lead to misinterpretation of CBC data. Current Interpretive Data was last revised on 2018. Monocyte pct 6.5 % [facility] Comment: Interpretive Data Percent cell count reference ranges are not reported, since discordance with absolute values may lead to misinterpretation of CBC data. Current Interpretive Data was last revised on 2018. Eosinophil pct 2.7 % [facility] Comment: Interpretive Data Percent cell count reference ranges are not reported, since discordance with absolute values may lead to misinterpretation of CBC data. Current Interpretive Data was last revised on 2018. Basophil pct 0.4 % [facility] Comment: Interpretive Data Percent cell count reference ranges are not reported, since discordance with absolute values may lead to misinterpretation of CBC data. Current Interpretive Data was last revised on 2018. Blood 11/03/2024 10:1 0 AM AVIATION ORDNANCE OFFICER 11/03/2024 10:29 AM AVIATION ORDNANCE OFFICER us Ashley Ramsey NP LAB BLOOD ORDERABLES Karine dhaliwal Result [facility] Department [place] [address] * (ABNORMAL) CBC with auto differential (11/03/2024 10:10 AM AVIATION ORDNANCE OFFICER) [facility] WBC 5.2 3.8 - 9.9 K/cumm Hgb 9.9(L) 11.9 - 15.5 g/dL [facility] Hct 31.9(L) 35.6 - 45.5 % [facility] Plt 274 150 - 400 K/cumm [facility] MPV 9.9 9.1 - 12.3 fL [facility] RBC 3.60(L) 3.90 - 5.20 M/cumm [facility] MCV 88.6 81.3 - 96.4 fL [facility] MCH 27.5 27.1 - 33.3 pg [facility] MCHC 31.0(L) 32.3 - 35.7 g/dL [facility] RDW CV 16.9(H) 11.1 - 14.9 % [facility] RDW SD 55.3(H) 35.7 - 48.1 fL [facility] NRBC abs 0.00 0.00 - 0.01 K/cumm [facility] Blood 11/03/2024 10:1 0 AM AVIATION ORDNANCE OFFICER 11/03/2024 10:29 AM AVIATION ORDNANCE OFFICER us Ashley Ramsey NP LAB BLOOD ORDERABLES Karine l Result Performing Organization Address City/[facility]/ZIP Co de Phone Number [facility] Department [place] [address] * Creatine kinase (CK), total (11/03/2024 10:10 AM AVIATION ORDNANCE OFFICER) [facility] CK 60 30 - 200 Units/L Blood 11/03/2024 10:1 0 AM AVIATION ORDNANCE OFFICER 11/03/2024 10:28 AM AVIATION ORDNANCE OFFICER us Florentino Mcgowan MD LAB BLOOD ORDERABLES Karine l Result [facility] Department [place] [address] * Basic metabolic panel (11/03/2024 10:10 AM AVIATION ORDNANCE OFFICER) Sodium 141 135 - 145 mmol/L Potassium, pl 4.3 3.3 - 4.9 mmol/L [facility] Chloride 108 97 - 110 mmol/L [facility] CO2 25 22 - 32 mmol/L [facility] Anion gap 8 2 - 15 mmol/L [facility] BUN 15 6 - 25 mg/dL [facility] Creatinine 0.94 0.60 - 1.10 mg/dL [facility] Glucose 94 70 - 199 mg/dL [facility] Comment: Interpretive Data Fasting glucose >/= 126 mg/dl is diagnostic for diabetes. Fasting is defined as no caloric intake for at least 8 hours. Fasting glucose between 100 mg/dl to 125 mg/dl is diagnostic of prediabetes. In a patient with classic symptoms of hyperglycemia or hyperglycemic crisis, a random glucose >/= 200 mg/dl is diagnostic for diabetes. In the absence of unequivocal hyperglycemia, results should be confirmed by repeat testing. The classification and Diagnosis of Diabetes Diabetes Care 2021; 46: S19-S40. Current interpretive data was last revised 2022. Calcium 9.3 8.5 - 10.3 mg/dL [facility] Blood 11/03/2024 10:1 0 AM AVIATION ORDNANCE OFFICER 11/03/2024 10:28 AM AVIATION ORDNANCE OFFICER us Ashley Ramsey NP LAB BLOOD ORDERABLES Karine l Result Performing Organization Address City/[facility]/ZIP Co de Phone Number [facility] Department [place] [address] * POCT glucose (11/03/2024 8:07 AM AVIATION ORDNANCE OFFICER) Glucose, POC 94 70 - 199 mg/dL Blood 11/03/2024 8:07 AM AVIATION ORDNANCE OFFICER 11/03/2024 8:07 AM AVIATION ORDNANCE OFFICER us Florentino Mcgowan MD LAB POCT ORDERABLES - DEV ICE Final Result Performing Organization Address City/[facility]/ZIP Co de Phone Number [facility] Department [place] [address] * Type and screen (11/02/2024 10:31 PM AVIATION ORDNANCE OFFICER) Vivi, indirect Negative ABO Rh A Positive [facility] Blood 11/02/2024 10:3 1 PM AVIATION ORDNANCE OFFICER 11/02/2024 11:44 PM AVIATION ORDNANCE OFFICER Narrative [facility] - 11/03/2024 12:41 AM AVIATION ORDNANCE OFFICER Has the patient had Daratumumab or Isatuximab in the past 6 months?->Unknown us Florentino Mcgowan MD LAB BLOOD BANK TEST ORDER VARGAS Final Result Performing Organization Address City/[facility]/ZIP Co de Phone Number [facility] [place] [address] * POCT glucose (11/02/2024 7:46 PM AVIATION ORDNANCE OFFICER) Glucose, POC 93 70 - 199 mg/dL Blood 11/02/2024 7:46 PM AVIATION ORDNANCE OFFICER 11/02/2024 7:46 PM AVIATION ORDNANCE OFFICER us Florentino Mcgowan MD LAB POCT ORDERABLES - DEV ICE Final Result Performing Organization Address City/[facility]/ZIP Co de Phone Number [facility] [facility] [place] [address] * POCT glucose (11/02/2024 6:00 PM AVIATION ORDNANCE OFFICER) Glucose, POC 85 70 - 199 mg/dL Blood 11/02/2024 6:00 PM AVIATION ORDNANCE OFFICER 11/02/2024 6:00 PM AVIATION ORDNANCE OFFICER us Florentino Mcgowan MD LAB POCT ORDERABLES - DEV ICE Final Result Performing Organization Address [facility]/ZIP Co de Phone Number [facility] [place] [address] * POCT glucose (11/02/2024 1:06 PM AVIATION ORDNANCE OFFICER) Glucose, POC 120 70 - 199 mg/dL Blood 11/02/2024 1:06 PM AVIATION ORDNANCE OFFICER 11/02/2024 1:06 PM AVIATION ORDNANCE OFFICER Florentino Mcgowan MD LAB POCT ORDERABLES - DEV ICE Final Result Performing Organization Address [facility] de Phone Number [facility] [place] [address] * POCT glucose (11/02/2024 8:23 AM AVIATION ORDNANCE OFFICER) Glucose, POC 81 70 - 199 mg/dL Blood 11/02/2024 8:23 AM AVIATION ORDNANCE OFFICER 11/02/2024 8:23 AM AVIATION ORDNANCE OFFICER Florentino Mcgowan MD LAB POCT ORDERABLES - DEV ICE Final Result Performing Organization Address [facility] de Phone Number [facility] [place] [address] * (ABNORMAL) Vancomycin level trough Vanc trough before the 4th dose. (11/01/2024 9:40 PM AVIATION ORDNANCE OFFICER) [facility] Vancomycin trough <4.0(L) 10.0 - 20.0 mcg/mL Comment:Repeated and Verifie d Blood 11/01/2024 9:40 PM AVIATION ORDNANCE OFFICER 11/01/2024 9:56 PM AVIATION ORDNANCE OFFICER Narrative [facility] - 11/01/2024 10:58 PM AVIATION ORDNANCE OFFICER Vanc trough before the 4th dose. Juan Jose Caldwell MD LAB BLOOD ORDERAB LES Final Result Performing Organization Address [facility] de Phone Number [facility] [place] [address] * POCT glucose (11/01/2024 7:46 PM AVIATION ORDNANCE OFFICER) Glucose, POC 182 70 - 199 mg/dL Blood 11/01/2024 7:46 PM AVIATION ORDNANCE OFFICER 11/01/2024 7:46 PM AVIATION ORDNANCE OFFICER us Florentino Mcgowan MD LAB POCT ORDERABLES - DEV ICE Final Result Performing Organization Address [facility] Phone Number [facility] [place] [address] * POCT glucose (11/01/2024 4:49 PM AVIATION ORDNANCE OFFICER) Glucose, POC 107 70 - 199 mg/dL Blood 11/01/2024 4:49 PM AVIATION ORDNANCE OFFICER 11/01/2024 4:49 PM AVIATION ORDNANCE OFFICER Florentino Mcgowan MD LAB POCT ORDERABLES - DEV ICE Final Result Performing Organization Address [facility] Phone Number [facility] [place] [address] * POCT glucose (11/01/2024 12:01 PM AVIATION ORDNANCE OFFICER) Glucose, POC 114 70 - 199 mg/dL Blood 11/01/2024 12:0 1 PM AVIATION ORDNANCE OFFICER 11/01/2024 12:01 PM AVIATION ORDNANCE OFFICER Flroentino Mcgowan MD LAB POCT ORDERABLES - DEV ICE Final Result Performing Organization Address [facility] de Phone Number [facility] [place] [address] * POCT glucose (11/01/2024 8:18 AM AVIATION ORDNANCE OFFICER) Glucose, POC 81 70 - 199 mg/dL Blood 11/01/2024 8:18 AM AVIATION ORDNANCE OFFICER 11/01/2024 8:18 AM AVIATION ORDNANCE OFFICER Florentino Mcgowan MD LAB POCT ORDERABLES - DEV ICE Final Result Performing Organization Address [facility] [place] [address] * (ABNORMAL) Vancomycin level trough (10/31/2024 8:30 PM AVIATION ORDNANCE OFFICER) Vancomycin trough 7.3(L) 10.0 - 20.0 mcg/mL Blood 10/31/2024 8:30 PM AVIATION ORDNANCE OFFICER 11/01/2024 12:40 AM AVIATION ORDNANCE OFFICER us Florentino Mcgowan MD LAB BLOOD ORDERABLES Karine l Result Performing Organization Address [facility] [place] [address] * POCT glucose (10/31/2024 7:52 PM AVIATION ORDNANCE OFFICER) Glucose, POC 111 70 - 199 mg/dL Blood 10/31/2024 7:52 PM AVIATION ORDNANCE OFFICER 10/31/2024 7:52 PM AVIATION ORDNANCE OFFICER us Florentino Mcgowan MD LAB POCT ORDERABLES - DEV ICE Final Result Performing Organization Address [facility] de Phone Number [facility] [place] [address] * POCT glucose (10/31/2024 3:19 PM AVIATION ORDNANCE OFFICER) Glucose, POC 74 70 - 199 mg/dL Blood 10/31/2024 3:19 PM AVIATION ORDNANCE OFFICER 10/31/2024 3:19 PM AVIATION ORDNANCE OFFICER us Florentino Mcgowan MD LAB POCT ORDERABLES - DEV ICE Final Result Performing Organization Address [facility] Co de Phone Number [facility] [place] [address] * ME AN PROCEDURE PLACEHOLDER (10/31/2024 2:47 PM AVIATION ORDNANCE OFFICER) Yudi Ballard CRNA - 10/31/2024 2:47 PM AVIATION ORDNANCE OFFICER Yudi Jarrett CRNA 10/31/2024 2:47 PM Peripheral IV Catheter Patient location: OR Staff: Supervising provider: Pio Bauer MD PhD Placed by: KHANH: Yudi Jarrett CRNA Preprocedure prep: Prep solution: chlorhexadine PPE: gloves and provider hat/mask PIV line: Laterality: right Site: hand Catheter size: 20 g Technique: anatomical landmarks Procedure details: good blood return and occlusive dressing applied Number of attempts: 1 Assessment: Events: patient tolerated procedure well with no complications us Pio Bauer MD PhD ANESTHESIA ORDERABLES Final Result * ME AN ELECTIVE ENDOTRACHEAL AIRWAY, ME AN PROCEDURE PLACEHOLDER (10/31/2024 2:39 PM AVIATION ORDNANCE OFFICER) Yudi Ballard CRNA - 10/31/2024 2:39 PM AVIATION ORDNANCE OFFICER Yudi Jarrett CRNA 10/31/2024 2:39 PM Airway Patient location: OR Urgency: elective Indications for airway management: anesthesia Difficult airway: no Staff: Supervising provider: Pio Bauer MD PhD Placed by: KHANH: Yudi Jarrett CRNA Emergent airway documentation: Risks and benefits discussed: yes Consent obtained: yes Consent given by: patient Airway prep: Preoxygenated: yes Patient position: sniffing Mask difficulty assessment: 0 - not attempted Spontaneous ventilation during airway: absent Sedation level during airway: GA Final airway details: Final airway type: endotracheal airway Tube type: Martín tube ETT size: 7.0 mm Cuffed: yes Technique used for successful ETT placement: video laryngoscopy Devices/Methods used in placement: intubating stylet Insertion site: oral Video blade type: Moore Blade size: 3 Cormack-Lehane (video): grade IIa - partial view of glottis Initial cuff pressure: 60 cm H2O Cuff volume: 6 mL Cuff inflated with: air ETT to teeth: 20 cm Placement verified by: auscultation and CO2 detection Airway secured with: silk tape Number of attempts: 1 us Pio Bauer MD PhD ANESTHESIA ORDERABLES Final Result * POCT glucose (10/31/2024 2:33 PM AVIATION ORDNANCE OFFICER) Glucose, POC 79 70 - 199 mg/dL Blood 10/31/2024 2:33 PM AVIATION ORDNANCE OFFICER 10/31/2024 2:33 PM AVIATION ORDNANCE OFFICER us Florentino Mcgowan MD LAB POCT ORDERABLES - DEV ICE Final Result [facility] Department [place] [address] * ME AN PROCEDURE PLACEHOLDER (10/31/2024 2:23 PM AVIATION ORDNANCE OFFICER) Narrative Anand Salomon MD - 10/31/2024 2:23 PM AVIATION ORDNANCE OFFICER Nikko Snell MD 10/31/2024 2:24 PM Peripheral Block Patient location during procedure: pre-op holding Reason for block: post-op pain management per surgeon request Ultrasound image in chart or stored: yes Block type: single shot Laterality: right Block type: sciatic nerve block - popliteal Staff: Supervising provider: Anand Salomon MD Placed by: Resident: Nikko Snell MD Procedure prep: Preprocedure checklist: patient identified, procedure contraindications assessed, site marked, procedure consent, surgical consent, IV checked, risks, benefits and alternatives discussed, monitors and equipment checked and timeout performed Patient position: supine Procedure performed while patient: sedate with meaningful contact Monitoring: ECG, oximetry and blood pressure Supplemental O2: nasal cannula Prep solution: chlorhexidine/alcohol PPE: provider hat/mask, sterile gloves and sterile probe cover and gel Peripheral nerve block: Technique: ultrasound guided Needle type: insulated, short-bevel and echogenic Needle gauge: 22 G Needle length: 80 mm Injection assessment: injection made incrementally with constant monitoring, local visualized surrounding nerve on ultrasound, negative aspiration for heme, no paresthesias noted, normal resistance to injection and see flowsheet for medication details Assessment: Block success: full evaluation pending Events: patient tolerated procedure well with no complications us Pio Bauer MD PhD ANESTHESIA ORDERABLES Final Result * ME AN PROCEDURE PLACEHOLDER (10/31/2024 2:20 PM AVIATION ORDNANCE OFFICER) Anand Orosco MD - 10/31/2024 2:20 PM AVIATION ORDNANCE OFFICER Nikko Snell MD 10/31/2024 2:21 PM Peripheral Block Patient location during procedure: pre-op holding Reason for block: post-op pain management per surgeon request Ultrasound image in chart or stored: yes Block type: single shot Laterality: right Block type: saphenous nerve block - subsartorial approach Staff: Supervising provider: Anand Salomon MD Placed by: Resident: Nikko Snell MD Procedure prep: Preprocedure checklist: patient identified, procedure contraindications assessed, site marked, procedure consent, surgical consent, IV checked, risks, benefits and alternatives discussed, monitors and equipment checked and timeout performed Patient position: supine Procedure performed while patient: sedate with meaningful contact Monitoring: ECG, oximetry and blood pressure Supplemental O2: nasal cannula Prep solution: chlorhexidine/alcohol PPE: provider hat/mask, sterile gloves and sterile probe cover and gel Peripheral nerve block: Technique: ultrasound guided Needle type: insulated, short-bevel and echogenic Needle gauge: 22 G Needle length: 80 mm Injection assessment: injection made incrementally with constant monitoring, local visualized surrounding nerve on ultrasound, negative aspiration for heme, no paresthesias noted, normal resistance to injection and see flowsheet for medication details Assessment: Block success: full evaluation pending Events: patient tolerated procedure well with no complications us Pio Bauer MD PhD ANESTHESIA ORDERABLES Final Result * POCT glucose (10/31/2024 11:49 AM AVIATION ORDNANCE OFFICER) Glucose, POC 83 70 - 199 mg/dL Blood 10/31/2024 11:4 9 AM AVIATION ORDNANCE OFFICER 10/31/2024 11:49 AM AVIATION ORDNANCE OFFICER us Florentino Mcgowan MD LAB POCT ORDERABLES - DEV ICE Final Result [facility] [place] [address] * POCT glucose (10/31/2024 8:15 AM AVIATION ORDNANCE OFFICER) Glucose, POC 82 70 - 199 mg/dL Blood 10/31/2024 8:15 AM AVIATION ORDNANCE OFFICER 10/31/2024 8:15 AM AVIATION ORDNANCE OFFICER us Florentino Mcgowan MD LAB POCT ORDERABLES - DEV ICE Final Result Performing Organization Address [facility] Co de Phone Number [facility] Department [place] [address] * (ABNORMAL) CBC without differential (10/31/2024 5:40 AM AVIATION ORDNANCE OFFICER) Pathologist [facility] [place] WBC 6.0 3.8 - 9.9 K/cumm Hgb 9.6(L) 11.9 - 15.5 g/dL [facility] Hct 30.8(L) 35.6 - 45.5 % [facility] Plt 244 150 - 400 K/cumm [facility] MPV 10.5 9.1 - 12.3 fL [facility] RBC 3.46(L) 3.90 - 5.20 M/cumm [facility] MCV 89.0 81.3 - 96.4 fL [facility] MCH 27.7 27.1 - 33.3 pg [facility] MCHC 31.2(L) 32.3 - 35.7 g/dL [facility] RDW CV 17.1(H) 11.1 - 14.9 % [facility] RDW SD 55.8(H) 35.7 - 48.1 fL [facility] NRBC abs 0.00 0.00 - 0.01 K/cumm [facility] Blood 10/31/2024 5:40 AM AVIATION ORDNANCE OFFICER 10/31/2024 5:54 AM AVIATION ORDNANCE OFFICER us Brandt Marquez MD LAB BLOOD ORDERABLES Fi nal Result Performing Organization Address [facility] Co de Phone Number [facility] Department [place] [address] * POCT glucose (10/31/2024 3:57 AM AVIATION ORDNANCE OFFICER) Glucose, POC 92 70 - 199 mg/dL Blood 10/31/2024 3:57 AM AVIATION ORDNANCE OFFICER 10/31/2024 3:57 AM AVIATION ORDNANCE OFFICER Florentino Mcgowan MD LAB POCT ORDERABLES - DEV ICE Final Result Performing Organization Address [facility] Co de Phone Number [facility] [place] [address] * POCT glucose (10/31/2024 12:12 AM AVIATION ORDNANCE OFFICER) Glucose, POC 121 70 - 199 mg/dL Blood 10/31/2024 12:1 2 AM AVIATION ORDNANCE OFFICER 10/31/2024 12:12 AM AVIATION ORDNANCE OFFICER Florentino Mcgowan MD LAB POCT ORDERABLES - DEV ICE Final Result Performing Organization Address [facility] de Phone Number [facility] [place] [address] * (ABNORMAL) Troponin I high-sensitivity 6-hour (10/30/2024 9:21 PM AVIATION ORDNANCE OFFICER) Pathologist [facility] [place] Trop I hs 18(H) <=17 ng/L Comment: Interpretive Data For further [facility] resources including the diagnostic algorithm and an aid in interpretation, copy and paste this link: [email or web address]/[email or web address] Current Interpretive Data last revised 2020. Trop I hs delta -3 ng/L [facility] Trop I hs interp Insignificant [facility] Blood 10/30/2024 9:21 PM AVIATION ORDNANCE OFFICER 10/30/2024 9:29 PM AVIATION ORDNANCE OFFICER Ashley Ramsey NP LAB BLOOD ORDERABLES Karine l Result Performing Organization Address [facility] Co de Phone Number [facility] [place] [address] * (ABNORMAL) eGFR (10/30/2024 9:21 PM AVIATION ORDNANCE OFFICER) eGFR 45(L) >=60 mL/min/1. 73 m2 Comment: Interpretive Data Reference Interval Normal >/= 90 mL/min/1.73m2 Mildly decreased* 60 - 89 mL/min/1.73m2 Mildly to moderately decreased 45 - 59 mL/min/1.73m2 Moderately to severely decreased 30 - 44 mL/min/1.73m2 Severely decreased 15 - 29 mL/min/1.73m2 Kidney Failure < 15 mL/min/1.73m2 *Relative to young adult level Estimated glomerular filtration rate is determined by the 2020 CKD-EPI equation recommended by the National Kidney Foundation (A Unifying Approach to GFR Estimation: Recommendations of the NKF-ASK Task Force on Reassessing the Inclusion of Race in Diagnosing Kidney Disease, JASN 2020). The CKD-EPI equation should not be used for patients with unstable renal function and has not been validated in children and those over 70. Current interpretive data was last reviewed 2021. Blood 10/30/2024 9:21 PM AVIATION ORDNANCE OFFICER 10/30/2024 9:29 PM AVIATION ORDNANCE OFFICER us Florentino Mcgowan MD LAB BLOOD ORDERABLES Karine l Result [facility] [place] [address] * Type and screen (10/30/2024 9:21 PM AVIATION ORDNANCE OFFICER) Vivi, indirect Negative ABO Rh A Positive [facility] Blood 10/30/2024 9:21 PM AVIATION ORDNANCE OFFICER 10/30/2024 10:08 PM AVIATION ORDNANCE OFFICER Narrative [facility] - 10/30/2024 10:51 PM AVIATION ORDNANCE OFFICER Has the patient had Daratumumab or Isatuximab in the past 6 months?->Unknown us Florentino Mcgowan MD LAB BLOOD BANK TEST ORDER VARGAS Final Result [facility] Department [place] [address] * (ABNORMAL) Basic metabolic panel (10/30/2024 9:21 PM AVIATION ORDNANCE OFFICER) Sodium 140 135 - 145 mmol/L Potassium, pl 4.0 3.3 - 4.9 mmol/L [facility] Chloride 106 97 - 110 mmol/L [facility] CO2 25 22 - 32 mmol/L [facility] Anion gap 9 2 - 15 mmol/L [facility] BUN 24 6 - 25 mg/dL [facility] Creatinine 1.26(H) 0.60 - 1.10 mg/dL [facility] Glucose 144 70 - 199 mg/dL [facility] Comment: Interpretive Data Fasting glucose >/= 126 mg/dl is diagnostic for diabetes. Fasting is defined as no caloric intake for at least 8 hours. Fasting glucose between 100 mg/dl to 125 mg/dl is diagnostic of prediabetes. In a patient with classic symptoms of hyperglycemia or hyperglycemic crisis, a random glucose >/= 200 mg/dl is diagnostic for diabetes. In the absence of unequivocal hyperglycemia, results should be confirmed by repeat testing. The classification and Diagnosis of Diabetes Diabetes Care 202; 46: S19-S40. Current interpretive data was last revised 2022. Calcium 8.8 8.5 - 10.3 mg/dL [facility] Blood 10/30/2024 9:21 PM AVIATION ORDNANCE OFFICER 10/30/2024 9:29 PM AVIATION ORDNANCE OFFICER Florentino Mcgowan MD LAB BLOOD ORDERABLES Karine l Result [facility] Department [place] [address] * POCT glucose (10/30/2024 8:04 PM AVIATION ORDNANCE OFFICER) Glucose, POC 167 70 - 199 mg/dL Blood 10/30/2024 8:04 PM AVIATION ORDNANCE OFFICER 10/30/2024 8:04 PM AVIATION ORDNANCE OFFICER Flroentino Mcgowan MD LAB POCT ORDERABLES - DEV ICE Final Result Performing Organization Address [facility] de Phone Number [facility] [place] [address] * Troponin I high-sensitivity 2-hour (10/30/2024 6:17 PM AVIATION ORDNANCE OFFICER) Trop I hs 17 <=17 ng/L Comment: Interpretive Data For further hscTnI resources including the diagnostic algorithm and an aid in interpretation, copy and paste this link: https://bjhlab.testcatalog.org/show/[email or web address] Current Interpretive Data last revised 2020. Trop I hs delta -4 ng/L [facility] Trop I hs interp Insignificant [facility] Blood 10/30/2024 6:17 PM AVIATION ORDNANCE OFFICER 10/30/2024 6:30 PM AVIATION ORDNANCE OFFICER us Ashley Ramsey NP LAB BLOOD ORDERABLES Karine l Result Performing Organization Address [facility] Co de Phone Number [facility] [place] [address] * POCT glucose (10/30/2024 5:07 PM AVIATION ORDNANCE OFFICER) [facility] Glucose, POC 107 70 - 199 mg/dL Blood 10/30/2024 5:07 PM AVIATION ORDNANCE OFFICER 10/30/2024 5:07 PM AVIATION ORDNANCE OFFICER us Florentino Mcgowan MD LAB POCT ORDERABLES - DEV ICE Final Result Performing Organization Address [facility] Co de Phone Number [facility] [place] [address] * (ABNORMAL) Troponin I high-sensitivity series (baseline, 2hr, 4hr, 6hr) (10/30/2024 3:52 PM AVIATION ORDNANCE OFFICER) Pathologist [facility] [place] Trop I hs 21(H) <=17 ng/L Comment: Interpretive Data For further hscTnI resources including the diagnostic algorithm and an aid in interpretation, copy and paste this link: [email or web address]/[email or web address] Current Interpretive Data last revised 2020. Blood 10/30/2024 3:52 PM AVIATION ORDNANCE OFFICER 10/30/2024 4:06 PM AVIATION ORDNANCE OFFICER Ashleyravi Ramsey NP LAB BLOOD ORDERABLES Karine l Result Performing Organization Address [facility] Co de Phone Number [facility] [place] [address] * (ABNORMAL) eGFR (10/30/2024 3:52 PM AVIATION ORDNANCE OFFICER) eGFR 44(L) >=60 mL/min/1. 73 m2 Comment: Interpretive Data Reference Interval Normal >/= 90 mL/min/1.73m2 Mildly decreased* 60 - 89 mL/min/1.73m2 Mildly to moderately decreased 45 - 59 mL/min/1.73m2 Moderately to severely decreased 30 - 44 mL/min/1.73m2 Severely decreased 15 - 29 mL/min/1.73m2 Kidney Failure < 15 mL/min/1.73m2 *Relative to young adult level Estimated glomerular filtration rate is determined by the 2020 CKD-EPI equation recommended by the National Kidney Foundation (A Unifying Approach to GFR Estimation: Recommendations of the NKF-ASK Task Force on Reassessing the Inclusion of Race in Diagnosing Kidney Disease, JASN 2020). The CKD-EPI equation should not be used for patients with unstable renal function and has not been validated in children and those over 70. Current interpretive data was last reviewed 2021. Blood 10/30/2024 3:52 PM AVIATION ORDNANCE OFFICER 10/30/2024 4:05 PM AVIATION ORDNANCE OFFICER Ashley Ramsey NP LAB BLOOD ORDERABLES Karine l Result Performing Organization Address [facility]/ZIP Co de Phone Number [facility] [place] [address] * (ABNORMAL) D-dimer, quantitative (10/30/2024 3:52 PM AVIATION ORDNANCE OFFICER) Pathologist [facility] [place] D-Dimer 2,253(H) <=499 ng/mL FEU Comment: Interpretive data FDA approved the D-dimer, in conjunction with a low or moderate pretest probability score, to exclude venous thromboembolic events (VTE) (PE and DVT) in outpatients when the D-dimer result is < 500 ng/ml FEU. Evidence supports using an age-adjusted D-dimer cut-off for outpatients older than 50 (age x 10) to improve specificity without sacrificing sensitivity. Example: age 68, VTE cut-off 680 ng/ml FEU. References; Schouten HT et al. Brit Med J. 2013;346:f2492. Talib et al. Annals Int Med. 2015;163:701-11. Current interpretive data was last revised on 2019. Blood 10/30/2024 3:52 PM AVIATION ORDNANCE OFFICER 10/30/2024 4:14 PM AVIATION ORDNANCE OFFICER us Ashley Ramsey NP LAB BLOOD ORDERABLES Karine l Result [facility] Department of Laboratories [place], [place] [id number] * (ABNORMAL) CBC without differential (10/30/2024 3:52 PM AVIATION ORDNANCE OFFICER) [facility] WBC 8.1 3.8 - 9.9 K/cumm Hgb 11.3(L) 11.9 - 15.5 g/dL [facility] Hct 35.8 35.6 - 45.5 % [facility] Plt 276 150 - 400 K/cumm [facility] MPV 11.0 9.1 - 12.3 fL [facility] RBC 4.08 3.90 - 5.20 M/cumm [facility] MCV 87.7 81.3 - 96.4 fL [facility] MCH 27.7 27.1 - 33.3 pg [facility] MCHC 31.6(L) 32.3 - 35.7 g/dL [facility] RDW CV 16.9(H) 11.1 - 14.9 % [facility] RDW SD 54.3(H) 35.7 - 48.1 fL [facility] NRBC abs 0.00 0.00 - 0.01 K/cumm [facility] Blood 10/30/2024 3:52 PM AVIATION ORDNANCE OFFICER 10/30/2024 4:06 PM AVIATION ORDNANCE OFFICER Ashley Ramsey CASE PLANNER LAB BLOOD ORDERABLES Karine l Result Performing Organization Address City/[facility] Co de Phone Number [facility] Department [place] [address] * (ABNORMAL) Magnesium (10/30/2024 3:52 PM AVIATION ORDNANCE OFFICER) [facility] Magnesium 2.6(H) 1.4 - 2.5 mg/dL Blood 10/30/2024 3:52 PM AVIATION ORDNANCE OFFICER 10/30/2024 4:05 PM AVIATION ORDNANCE OFFICER [facility] Ramsey CASE PLANNER LAB BLOOD ORDERABLES Karine l Result Performing Organization Address [facility] [facility] de Phone Number [facility] Department [place] [address] * (ABNORMAL) Comprehensive metabolic panel (10/30/2024 3:52 PM AVIATION ORDNANCE OFFICER) [facility] Sodium 140 135 - 145 mmol/L Potassium, pl 4.3 3.3 - 4.9 mmol/L [facility] Chloride 103 97 - 110 mmol/L [facility] CO2 24 22 - 32 mmol/L [facility] Anion gap 13 2 - 15 mmol/L [facility] BUN 25 6 - 25 mg/dL [facility] Creatinine 1.29(H) 0.60 - 1.10 mg/dL [facility] Glucose 122 70 - 199 mg/dL [facility] Comment: Interpretive Data Fasting glucose >/= 126 mg/dl is diagnostic for diabetes. Fasting is defined as no caloric intake for at least 8 hours. Fasting glucose between 100 mg/dl to 125 mg/dl is diagnostic of prediabetes. In a patient with classic symptoms of hyperglycemia or hyperglycemic crisis, a random glucose >/= 200 mg/dl is diagnostic for diabetes. In the absence of unequivocal hyperglycemia, results should be confirmed by repeat testing. The classification and Diagnosis of Diabetes Diabetes Care 2021; 46: S19-S40. Current interpretive data was last revised 2022. Calcium 9.7 8.5 - 10.3 mg/dL [facility] Bilirubin, total 0.3 0.1 - 1.2 mg/dL [facility] Protein, pl 8.6(H) 6.5 - 8.5 g/dL [facility] Albumin 4.0 3.5 - 5.0 g/dL [facility] Alk phos 88 40 - 130 Units/L [facility] ALT 13 7 - 45 Units/L [facility] AST 29 10 - 45 Units/L [facility] Blood 10/30/2024 3:52 PM AVIATION ORDNANCE OFFICER 10/30/2024 4:05 PM AVIATION ORDNANCE OFFICER us Ashley Ramsey NP LAB BLOOD ORDERABLES Karine l Result [facility] Department [place] [address] * POCT glucose (10/30/2024 11:14 AM AVIATION ORDNANCE OFFICER) Glucose, POC 98 70 - 199 mg/dL Blood 10/30/2024 11:1 4 AM AVIATION ORDNANCE OFFICER 10/30/2024 11:14 AM AVIATION ORDNANCE OFFICER us Florentino Mcgowan MD LAB POCT ORDERABLES - DEV ICE Final Result Performing Organization Address [facility]/ZIP Co de Phone Number [facility] Department [place] [address] * POCT glucose (10/30/2024 7:30 AM AVIATION ORDNANCE OFFICER) Glucose, POC 76 70 - 199 mg/dL Blood 10/30/2024 7:30 AM AVIATION ORDNANCE OFFICER 10/30/2024 7:30 AM AVIATION ORDNANCE OFFICER Florentino Mcgowan MD LAB POCT ORDERABLES - DEV ICE Final Result Performing Organization Address [facility] Co de Phone Number [facility] [place] [address] * eGFR (10/29/2024 10:42 PM AVIATION ORDNANCE OFFICER) Pathologist [facility] [place] eGFR 63 >=60 mL/min/1. 73 m2 Comment: Interpretive Data Reference Interval Normal >/= 90 mL/min/1.73m2 Mildly decreased* 60 - 89 mL/min/1.73m2 Mildly to moderately decreased 45 - 59 mL/min/1.73m2 Moderately to severely decreased 30 - 44 mL/min/1.73m2 Severely decreased 15 - 29 mL/min/1.73m2 Kidney Failure < 15 mL/min/1.73m2 *Relative to young adult level Estimated glomerular filtration rate is determined by the 2020 CKD-EPI equation recommended by the National Kidney Foundation (A Unifying Approach to GFR Estimation: Recommendations of the NKF-ASK Task Force on Reassessing the Inclusion of Race in Diagnosing Kidney Disease, JASN 2020). The CKD-EPI equation should not be used for patients with unstable renal function and has not been validated in children and those over 70. Current interpretive data was last reviewed 2021. Blood 10/29/2024 10:4 2 PM AVIATION ORDNANCE OFFICER 10/29/2024 11:31 PM AVIATION ORDNANCE OFFICER us Florentino Mcgowan MD LAB BLOOD ORDERABLES Karine l Result Performing Organization Address [facility] Co de Phone Number [facility] Department [place] [address] * (ABNORMAL) CBC without differential (10/29/2024 10:42 PM AVIATION ORDNANCE OFFICER) [facility] WBC 8.3 3.8 - 9.9 K/cumm Hgb 11.0(L) 11.9 - 15.5 g/dL [facility] Hct 36.0 35.6 - 45.5 % [facility] Plt 210 150 - 400 K/cumm [facility] MPV 11.2 9.1 - 12.3 fL [facility] RBC 4.02 3.90 - 5.20 M/cumm [facility] MCV 89.6 81.3 - 96.4 fL [facility] MCH 27.4 27.1 - 33.3 pg [facility] MCHC 30.6(L) 32.3 - 35.7 g/dL [facility] RDW CV 17.2(H) 11.1 - 14.9 % [facility] RDW SD 56.6(H) 35.7 - 48.1 fL [facility] NRBC abs 0.00 0.00 - 0.01 K/cumm [facility] Blood 10/29/2024 10:4 2 PM AVIATION ORDNANCE OFFICER 10/29/2024 11:31 PM AVIATION ORDNANCE OFFICER us Florentino Mcgowan MD LAB BLOOD ORDERABLES Karine l Result [facility] Department [place] [address] * Basic metabolic panel (10/29/2024 10:42 PM AVIATION ORDNANCE OFFICER) Sodium 143 135 - 145 mmol/L Potassium, pl 4.2 3.3 - 4.9 mmol/L [facility] Chloride 107 97 - 110 mmol/L [facility] CO2 22 22 - 32 mmol/L [facility] Anion gap 14 2 - 15 mmol/L [facility] BUN 24 6 - 25 mg/dL [facility] Creatinine 0.96 0.60 - 1.10 mg/dL [facility] Glucose 114 70 - 199 mg/dL [facility] Comment: Interpretive Data Fasting glucose >/= 126 mg/dl is diagnostic for diabetes. Fasting is defined as no caloric intake for at least 8 hours. Fasting glucose between 100 mg/dl to 125 mg/dl is diagnostic of prediabetes. In a patient with classic symptoms of hyperglycemia or hyperglycemic crisis, a random glucose >/= 200 mg/dl is diagnostic for diabetes. In the absence of unequivocal hyperglycemia, results should be confirmed by repeat testing. The classification and Diagnosis of Diabetes Diabetes Care 2021; 46: S19-S40. Current interpretive data was last revised 2022. Calcium 9.3 8.5 - 10.3 mg/dL [facility] Blood 10/29/2024 10:4 2 PM AVIATION ORDNANCE OFFICER 10/29/2024 11:31 PM AVIATION ORDNANCE OFFICER Florentino Mcgowan MD LAB BLOOD ORDERABLES Karine l Result [facility] [place] [address] * POCT glucose (10/29/2024 8:35 PM AVIATION ORDNANCE OFFICER) Glucose, POC 110 70 - 199 mg/dL Blood 10/29/2024 8:35 PM AVIATION ORDNANCE OFFICER 10/29/2024 8:35 PM AVIATION ORDNANCE OFFICER Florentino Mcgowan MD LAB POCT ORDERABLES - DEV ICE Final Result Performing Organization Address City/[facility] Co de Phone Number [facility] [place] [address] * POCT glucose (10/29/2024 6:14 PM AVIATION ORDNANCE OFFICER) Glucose, POC 96 70 - 199 mg/dL Blood 10/29/2024 6:1 4 PM AVIATION ORDNANCE OFFICER 10/29/2024 6:14 PM AVIATION ORDNANCE OFFICER Florentino Mcgowan MD LAB POCT ORDERABLES - DEV ICE Final Result Performing Organization Address City/[facility] Co de Phone Number [facility] [place] [address] * FL Fluoroscopy < 1 Hour (10/29/2024 5:34 PM AVIATION ORDNANCE OFFICER) Narrative [facility] - 10/29/2024 5:35 PM AVIATION ORDNANCE OFFICER The images from this study are not interpreted by Radiology. Please refer to the physician's procedure / OR operative note. Florentino Mcgowan MD IMG FLUOROSCOPY PROCEDURE S Final Result Performing Organization Address [facility]/ZIP Co de Phone Number [email or web address] * (ABNORMAL) Tissue aerobic and anaerobic culture and gram stain Tissue Ankle, right (10/29/2024 5:10PM AVIATION ORDNANCE OFFICER) Direct Specimen Exam Stain: No polymorphonuclear leukocytes seen. No organisms seen. Report Final Report: Few Staphylococcus aureus Few Enterococcus faecalis For susceptibility results, refer to accession number [id number] on the right ankle tissue culture from 10/29/2024 (.) [facility] Organism STAPHYLOCOCCUS AUREUS [facility] Organism ENTEROCOCCUS FAECALIS [facility] Tissue (Ankle, right) 10/29/2024 5:10 PM AVIATION ORDNANCE OFFICER 10/29/2024 6:32 PM AVIATION ORDNANCE OFFICER Narrative [facility] - 11/02/2024 10:12 AM AVIATION ORDNANCE OFFICER Deltoid ligament Testing performed by [facility] ([phone]) Specimens submitted from normally sterile body sites will have all bacterial morphotypes identified. Specimens that contain grossly mixed jacob and/or are from body sites that are not normally sterile will be examined for Staphylococcus aureus, Pseudomonas aeruginosa, beta-hemolytic strep, vancomycin-resistant Enterococcus, Bacteroides, Parabacteroides, Clostridium perfringens and fungus. If any of these are isolated, the organism will be reported. Current interpretive data was last revised on 2019. us Florentino Mcgowan MD LAB MICROBIOLOGY - GENERA L ORDERABLES Final Result Performing Organization Address City/[facility]/ZIP Co de Phone Number RADHA [facility] Department [place] [address] * (ABNORMAL) Tissue aerobic and anaerobic culture and gram stain Tissue Ankle, right (10/29/2024 5:10PM AVIATION ORDNANCE OFFICER) Direct Specimen Exam Stain: Few polymorphonuclear leukocytes seen. Few Gram Positive Cocci Report Final Report: Few Staphylococcus aureus Few Enterococcus faecalis For susceptibility results, refer to accession number [id number] on the right ankle tissue culture from 10/29/2024 Rare Staphylococcus lugdunensis This Staphylococcus lugdunensis is a [id number] producing strain. This isolate is resistant to oxacillin but not cephalosporin agents. Rare Mixed microorganisms. (.) [facility] Organism STAPHYLOCOCCUS AUREUS [facility] Organism ENTEROCOCCUS FAECALIS [facility] Organism STAPHYLOCOCCUS LUGDUNENSIS [facility] Organism MIXED MICROORGANISMS. [facility] Tissue (Ankle, right) 10/29/2024 5:10 PM AVIATION ORDNANCE OFFICER 10/29/2024 6:34 PM AVIATION ORDNANCE OFFICER Narrative [facility] - 11/10/2024 1:50 PM AVIATION ORDNANCE OFFICER Deep medial ankle Testing performed by [facility] ([phone]) Specimens submitted from normally sterile body sites will have all bacterial morphotypes identified. Specimens that contain grossly mixed jacob and/or are from body sites that are not normally sterile will be examined for Staphylococcus aureus, Pseudomonas aeruginosa, beta-hemolytic strep, vancomycin-resistant Enterococcus, Bacteroides, Parabacteroides, Clostridium perfringens and fungus. If any of these are isolated, the organism will be reported. Current interpretive data was last revised on 2019. Organism Antibiotic Method Susceptibility Staphylococcus lugdunensis Daptomycin (JESS) (JESS) INTERPRETATION Susceptible Staphylococcus lugdunensis Doxycycline (JESS) INTERPRETATION Susceptible Staphylococcus lugdunensis Linezolid (JESS) INTERPRETATION Susceptible Staphylococcus lugdunensis Trimethoprim with Sulfamethoxazole (JESS) INTERPRETATION Susceptible Staphylococcus lugdunensis Clindamycin (JESS) INTERPRETATION Susceptible Staphylococcus lugdunensis Erythromycin (JESS) INTERPRETATION Susceptible Staphylococcus lugdunensis Vancomycin (JESS) INTERPRETATION Susceptible Staphylococcus lugdunensis Oxacillin (JESS) INTERPRETATION Intermediate Staphylococcus lugdunensis Cefazolin (JESS) INTERPRETATION Susceptible Staphylococcus lugdunensis Ceftriaxone (JESS) INTERPRETATION Susceptible us Florentino Mcgowan MD LAB MICROBIOLOGY - GENERA L ORDERABLES Final Result [facility] Department [place] [address] * (ABNORMAL) Tissue aerobic and anaerobic culture and gram stain Tissue Ankle, right (10/29/2024 5:02PM AVIATION ORDNANCE OFFICER) Direct Specimen Exam Stain: Rare polymorphonuclear leukocytes seen. No organisms seen. Report Final Report: Few Staphylococcus aureus Methicillin susceptible (MSSA) by penicillin binding protein 2a (PBP2a) testing. Few Enterococcus faecalis Rare Mixed microorganisms. (.) [facility] Organism [facility]US [facility] Organism ENTEROCOCCUS FAECALIS [facility] Organism MIXED MICROORGANISMS. [facility] Tissue (Ankle, right) 10/29/2024 5:02 PM AVIATION ORDNANCE OFFICER 10/29/2024 6:31 PM AVIATION ORDNANCE OFFICER Narrative [facility] - 11/09/2024 1:58 PM AVIATION ORDNANCE OFFICER Tissue from underneath plate Testing performed by [facility] ([phone]) Specimens submitted from normally sterile body sites will have all bacterial morphotypes identified. Specimens that contain grossly mixed jacob and/or are from body sites that are not normally sterile will be examined for Staphylococcus aureus, Pseudomonas aeruginosa, beta-hemolytic strep, vancomycin-resistant Enterococcus, Bacteroides, Parabacteroides, Clostridium perfringens and fungus. If any of these are isolated, the organism will be reported. Current interpretive data was last revised on 2019. Organism Antibiotic Method Susceptibility Staphylococcus aureus Daptomycin (JESS) (JESS) INTERPRET ATION Susceptible Staphylococcus aureus Doxycycline (JESS) INTERPRETATIO N Susceptible Staphylococcus aureus Linezolid (JESS) INTERPRETATIO N Susceptible Staphylococcus aureus Trimethoprim with Sulfamethoxazole (JESS) INTERPRETATION Susceptible Staphylococcus aureus Clindamycin (JESS) INTERPRETATIO N Susceptible Staphylococcus aureus Erythromycin (JESS) INTERPRETATIO N Susceptible Staphylococcus aureus Vancomycin (JESS) INTERPRETATIO N Susceptible Staphylococcus aureus Oxacillin (JESS) INTERPRETATIO N Susceptible Staphylococcus aureus Cefazolin (JESS) INTERPRETATIO N Susceptible Staphylococcus aureus Ceftriaxone (JESS) INTERPRETATIO N Susceptible Enterococcus faecalis Daptomycin (JESS) (JESS) INTERPRET ATION Susceptible Enterococcus faecalis Ampicillin (JESS) INTERPRETATIO N Susceptible Enterococcus faecalis Vancomycin (JESS) INTERPRETATIO N Susceptible Enterococcus faecalis Linezolid (JESS) INTERPRETATIO N Susceptible Enterococcus faecalis Doxycycline (JESS) INTERPRETATIO N Susceptible us Florentino Mcgowan MD LAB MICROBIOLOGY - GENERA L ORDERABLES Final Result Performing Organization Address City/State/[facility] Co de Phone Number [facility] Department [place] [address] * POCT glucose (10/29/2024 5:00 PM AVIATION ORDNANCE OFFICER) Glucose, POC 93 70 - 199 mg/dL Blood 10/29/2024 5:00 PM AVIATION ORDNANCE OFFICER 10/29/2024 5:00 PM AVIATION ORDNANCE OFFICER us Florentino Mcgowan MD LAB POCT ORDERABLES - DEV ICE Final Result Performing Organization Address [facility] Co de Phone Number RADHA [facility] [place] [address] * Peripheral IV Catheter (10/29/2024 4:49 PM AVIATION ORDNANCE OFFICER) Narrative Sunshine Enamorado DO - 10/29/2024 4:49 PM AVIATION ORDNANCE OFFICER Sunshine Enamorado DO 10/29/2024 4:50 PM Peripheral IV Catheter Patient location: OR Staff: Supervising provider: Sofya Nesbitt MD PhD Placed by: Resident: Sunshine Enamorado DO Preprocedure prep: Prep solution: chlorhexadine and alcohol PPE: gloves and provider hat/mask PIV line: Laterality: left Site: hand Catheter size: 18 g Technique: direct visualization Procedure details: good blood return Number of attempts: 1 Assessment: Events: patient tolerated procedure well with no complications us Sofya Nesbitt MD PhD ANESTHESIA ORDERA BLES Final Result * Airway (10/29/2024 4:49 PM AVIATION ORDNANCE OFFICER) Narrative Sunshine Enamorado DO - 10/29/2024 4:49 PM AVIATION ORDNANCE OFFICER Sunshine Enamorado DO 10/29/2024 4:49 PM Airway Patient location: OR Urgency: elective Indications for airway management: anesthesia Difficult airway: no Staff: Supervising provider: Sofya Nesbitt MD PhD Placed by: Resident: Sunshine Enamorado DO Emergent airway documentation: Risks and benefits discussed: yes Consent obtained: yes Consent given by: patient Airway prep: Preoxygenated: yes Patient position: sniffing Mask difficulty assessment: 2 - vent by mask + OA or adjuvant Spontaneous ventilation during airway: absent Sedation level during airway: GA Final airway details: Final airway type: endotracheal airway Tube type: ETT ETT size: 7.0 mm Cuffed: yes Technique used for successful ETT placement: video laryngoscopy Devices/Methods used in placement: stylet Insertion site: oral Blade type: Vidhi Video blade type: Moore Blade size: 3 Cormack-Lehane (direct): grade I - full view of glottis Cormack-Lehane (video): grade I - full view of glottis Cuff inflated with: air ETT to lips: 22 cm Placement verified by: auscultation and CO2 detection Airway secured with: silk tape Number of attempts: 1 us Sofya Nesbitt MD PhD ANESTHESIA ORDERA BLES Final Result * POCT glucose (10/29/2024 11:21 AM AVIATION ORDNANCE OFFICER) Glucose, POC 85 70 - 199 mg/dL Blood 10/29/2024 11:2 1 AM AVIATION ORDNANCE OFFICER 10/29/2024 11:21 AM AVIATION ORDNANCE OFFICER Florentino Mcgowan MD LAB POCT ORDERABLES - DEV ICE Final Result Performing Organization Address [facility] de Phone Number [facility] Department [place] [address] * POCT glucose (10/29/2024 7:37 AM AVIATION ORDNANCE OFFICER) Glucose, POC 96 70 - 199 mg/dL Blood 10/29/2024 7:37 AM AVIATION ORDNANCE OFFICER 10/29/2024 7:37 AM AVIATION ORDNANCE OFFICER Florentino Mcgowan MD LAB POCT ORDERABLES - DEV ICE Final Result Performing Organization Address [facility] de Phone Number [facility] [place] [address] * Urinalysis reflex to microscopic and culture Urine (10/29/2024 4:45 AM AVIATION ORDNANCE OFFICER) Color, ur Straw Yellow Clarity, ur Clear Clear [facility] Specific gravity, ur 1.016 1.003 - 1.030 [facility] pH, urine 5.5 [facility] Comment: Interpretive Data U rine pH is affected by diet, medications, systemic acid-base disturbances, and renal tubular function. pH may affect urinary stone formation. For example, urine pH below 6.0 may help reduce the tendency for calcium phosphate stones and pH greater than 6.0 may reduce the tendency for uric acid stone formation. Source: [facility] Monitor My Meds Current Interpretive Data was last revised on 2017 Protein, ur ql Negative Negative [facility] Glucose, ur ql Negative Negative [facility] Ketones, ur Negative Negative [facility] Bilirubin, ur Negative Negative [facility] Blood, ur Negative Negative [facility] Urobilinogen, ur <2.0 <2.0 mg/dL [facility] Nitrite, ur Negative Negative [facility] Leukocyte esterase, ur Negative Negative [facility] UA reflex comment Reflex conditions for microscopic UA and culture not met. [facility] Urine 10/29/2024 4:45 AM AVIATION ORDNANCE OFFICER 10/29/2024 5:10 AM AVIATION ORDNANCE OFFICER us Florentino Mcgowan MD LAB MICROBIOLOGY - GENERA L ORDERABLES Final Result [facility] Department [place] [address] * (ABNORMAL) eGFR (10/28/2024 10:05 PM AVIATION ORDNANCE OFFICER) eGFR 50(L) >=60 mL/min/1. 73 m2 Comment: Interpretive Data Reference Interval Normal >/= 90 mL/min/1.73m2 Mildly decreased* 60 - 89 mL/min/1.73m2 Mildly to moderately decreased 45 - 59 mL/min/1.73m2 Moderately to severely decreased 30 - 44 mL/min/1.73m2 Severely decreased 15 - 29 mL/min/1.73m2 Kidney Failure < 15 mL/min/1.73m2 *Relative to young adult level Estimated glomerular filtration rate is determined by the 2020 CKD-EPI equation recommended by the National Kidney Foundation (A Unifying Approach to GFR Estimation: Recommendations of the NKF-ASK Task Force on Reassessing the Inclusion of Race in Diagnosing Kidney Disease, JASN 2020). The CKD-EPI equation should not be used for patients with unstable renal function and has not been validated in children and those over 70. Current interpretive data was last reviewed 2021. Blood 10/28/2024 10:0 5 PM AVIATION ORDNANCE OFFICER 10/28/2024 10:33 PM AVIATION ORDNANCE OFFICER Florentino Mcgowan MD LAB BLOOD ORDERABLES Karine l Result Performing Organization Address [facility] Co de Phone Number [facility] [place] [address] * aPTT (10/28/2024 10:05 PM AVIATION ORDNANCE OFFICER) aPTT 29 28 - 38 sec Comment: Interpretive Data Heparin therapeutic range: 66.0 - 100.0 seconds. Range based on correlation with therapeutic heparin activity range of 0.3 - 0.7 Units/mL. Current interpretive data was last revised on 2023. Blood 10/28/2024 10:0 5 PM AVIATION ORDNANCE OFFICER 10/28/2024 10:37 PM AVIATION ORDNANCE OFFICER Florentino Mcgowan MD LAB BLOOD ORDERABLES Karine l Result Performing Organization Address [facility] de Phone Number [facility] [place] [address] * Protime-INR (10/28/2024 10:05 PM AVIATION ORDNANCE OFFICER) PT 12.2 9.7 - 13.0 sec INR 1.13 0.90 - 1.20 [facility] Comment: Interpretive data Oral anticoagulant therapeutic ranges: Venous thromboembolism prophylaxis or treatment: 2.0-3.0 CARDIOLOGY Standard range: 2.0-3.0 High-intensity range: 2.5-3.5 Refer to indication-specific guidelines for appropriate target ranges for prosthetic heart valve replacement. Current interpretive data was last revised on 2019. Blood 10/28/2024 10:0 5 PM AVIATION ORDNANCE OFFICER 10/28/2024 10:37 PM AVIATION ORDNANCE OFFICER us Florentino Mcgowan MD LAB BLOOD ORDERABLES Karine l Result Performing Organization Address [facility] Co de Phone Number [facility] [place] [address] * (ABNORMAL) CBC without differential (10/28/2024 10:05 PM AVIATION ORDNANCE OFFICER) Pathologist [facility] [place] WBC 9.2 3.8 - 9.9 K/cumm Hgb 9.4(L) 11.9 - 15.5 g/dL [facility] Hct 29.0(L) 35.6 - 45.5 % [facility] Plt 201 150 - 400 K/cumm [facility] MPV 11.1 9.1 - 12.3 fL [facility] RBC 3.40(L) 3.90 - 5.20 M/cumm [facility] MCV 85.3 81.3 - 96.4 fL [facility] MCH 27.6 27.1 - 33.3 pg [facility] MCHC 32.4 32.3 - 35.7 g/dL [facility] RDW CV 17.1(H) 11.1 - 14.9 % [facility] RDW SD 53.1(H) 35.7 - 48.1 fL [facility] NRBC abs 0.00 0.00 - 0.01 K/cumm [facility] Blood 10/28/2024 10:0 5 PM AVIATION ORDNANCE OFFICER 10/28/2024 10:34 PM AVIATION ORDNANCE OFFICER us Florentino Mcgowan MD LAB BLOOD ORDERABLES Karine l Result Performing Organization Address [facility] Co de Phone Number [facility] Department [place] [address] * Type and screen (10/28/2024 10:05 PM AVIATION ORDNANCE OFFICER) Pathologist [facility] [place] Vivi, indirect Negative ABO Rh A Positive [facility] Blood 10/28/2024 10:0 5 PM AVIATION ORDNANCE OFFICER 10/28/2024 10:50 PM AVIATION ORDNANCE OFFICER Narrative [facility] - 10/28/2024 11:47 PM AVIATION ORDNANCE OFFICER Has the patient had Daratumumab or Isatuximab in the past 6 months?->Unknown us Florentino Mcgowan MD LAB BLOOD BANK TEST ORDER VARGAS Final Result Performing Organization Address City/[facility] Co de Phone Number [facility] Department [place] [address] * (ABNORMAL) CRP (acute phase) (10/28/2024 10:05 PM AVIATION ORDNANCE OFFICER) [facility] CRP 154.4(H) <=10.0 mg/L Blood 10/28/2024 10:0 5 PM AVIATION ORDNANCE OFFICER 10/28/2024 10:33 PM AVIATION ORDNANCE OFFICER Brandt Marquez MD LAB BLOOD ORDERABLES Fi nal Result Performing Organization Address [facility] Co de Phone Number [facility] [place] [address] * (ABNORMAL) Basic metabolic panel (10/28/2024 10:05 PM AVIATION ORDNANCE OFFICER) [facility] Sodium 140 135 - 145 mmol/L Potassium, pl 3.5 3.3 - 4.9 mmol/L [facility] Chloride 105 97 - 110 mmol/L [facility] CO2 26 22 - 32 mmol/L [facility] Anion gap 9 2 - 15 mmol/L [facility] BUN 33(H) 6 - 25 mg/dL [facility] Creatinine 1.17(H) 0.60 - 1.10 mg/dL [facility] Glucose 139 70 - 199 mg/dL [facility] Comment: Interpretive Data Fasting glucose >/= 126 mg/dl is diagnostic for diabetes. Fasting is defined as no caloric intake for at least 8 hours. Fasting glucose between 100 mg/dl to 125 mg/dl is diagnostic of prediabetes. In a patient with classic symptoms of hyperglycemia or hyperglycemic crisis, a random glucose >/= 200 mg/dl is diagnostic for diabetes. In the absence of unequivocal hyperglycemia, results should be confirmed by repeat testing. The classification and Diagnosis of Diabetes Diabetes Care 202; 46: S19-S40. Current interpretive data was last revised 2022. Calcium 9.4 8.5 - 10.3 mg/dL [facility] Blood 10/28/2024 10:0 5 PM AVIATION ORDNANCE OFFICER 10/28/2024 10:33 PM AVIATION ORDNANCE OFFICER us Florentino Mcgowan MD LAB BLOOD ORDERABLES Karine l Result [facility] Department [place] [address] * (ABNORMAL) eGFR (10/28/2024 7:55 PM AVIATION ORDNANCE OFFICER) eGFR 47(L) >=60 mL/min/1. 73 m2 Comment: Interpretive Data Reference Interval Normal >/= 90 mL/min/1.73m2 Mildly decreased* 60 - 89 mL/min/1.73m2 Mildly to moderately decreased 45 - 59 mL/min/1.73m2 Moderately to severely decreased 30 - 44 mL/min/1.73m2 Severely decreased 15 - 29 mL/min/1.73m2 Kidney Failure < 15 mL/min/1.73m2 *Relative to young adult level Estimated glomerular filtration rate is determined by the 2020 CKD-EPI equation recommended by the National Kidney Foundation (A Unifying Approach to GFR Estimation: Recommendations of the NKF-ASK Task Force on Reassessing the Inclusion of Race in Diagnosing Kidney Disease, JASN 202). The CKD-EPI equation should not be used for patients with unstable renal function and has not been validated in children and those over 70. Current interpretive data was last reviewed 2021. Blood 10/28/2024 7:55 PM AVIATION ORDNANCE OFFICER 10/28/2024 8:16 PM AVIATION ORDNANCE OFFICER us Florentino Mcgowan MD LAB BLOOD ORDERABLES Karine l Result [facility] [place] [address] * (ABNORMAL) Erythrocyte sedimentation rate (10/28/2024 7:55 PM AVIATION ORDNANCE OFFICER) [facility] Erythrocyte sedimentation rate 85(H) 1 - 30 mm/hr Blood 10/28/2024 7:55 PM AVIATION ORDNANCE OFFICER 10/28/2024 8:20 PM AVIATION ORDNANCE OFFICER Brandt Marquez MD LAB BLOOD ORDERABLES Fi nal Result Performing Organization Address [facility] Co de Phone Number [facility] [place] [address] * (ABNORMAL) CBC without differential (10/28/2024 7:55 PM AVIATION ORDNANCE OFFICER) [facility] WBC 9.8 3.8 - 9.9 K/cumm Hgb 10.7(L) 11.9 - 15.5 g/dL [facility] Hct 33.4(L) 35.6 - 45.5 % [facility] Plt 217 150 - 400 K/cumm [facility] MPV 11.2 9.1 - 12.3 fL [facility] RBC 3.82(L) 3.90 - 5.20 M/cumm [facility] MCV 87.4 81.3 - 96.4 fL [facility] MCH 28.0 27.1 - 33.3 pg [facility] MCHC 32.0(L) 32.3 - 35.7 g/dL [facility] RDW CV 16.9(H) 11.1 - 14.9 % [facility] RDW SD 54.1(H) 35.7 - 48.1 fL [facility] NRBC abs 0.00 0.00 - 0.01 K/cumm [facility] Blood 10/28/2024 7:55 PM AVIATION ORDNANCE OFFICER 10/28/2024 8:11 PM AVIATION ORDNANCE OFFICER us Florentino Mcgowan MD LAB BLOOD ORDERABLES Karine l Result [facility] [place] [address] * (ABNORMAL) Basic metabolic panel (10/28/2024 7:55 PM AVIATION ORDNANCE OFFICER) Sodium 142 135 - 145 mmol/L Potassium, pl 4.0 3.3 - 4.9 mmol/L [facility] Chloride 103 97 - 110 mmol/L [facility] CO2 26 22 - 32 mmol/L [facility] Anion gap 13 2 - 15 mmol/L [facility] BUN 33(H) 6 - 25 mg/dL [facility] Creatinine 1.23(H) 0.60 - 1.10 mg/dL [facility] Glucose 107 70 - 199 mg/dL [facility] Comment: Interpretive Data Fasting glucose >/= 126 mg/dl is diagnostic for diabetes. Fasting is defined as no caloric intake for at least 8 hours. Fasting glucose between 100 mg/dl to 125 mg/dl is diagnostic of prediabetes. In a patient with classic symptoms of hyperglycemia or hyperglycemic crisis, a random glucose >/= 200 mg/dl is diagnostic for diabetes. In the absence of unequivocal hyperglycemia, results should be confirmed by repeat testing. The classification and Diagnosis of Diabetes Diabetes Care 2021; 46: S19-S40. Current interpretive data was last revised 2022. Calcium 9.6 8.5 - 10.3 mg/dL [facility] Blood 10/28/2024 7:55 PM AVIATION ORDNANCE OFFICER 10/28/2024 8:11 PM AVIATION ORDNANCE OFFICER Florentino Mcgowan MD LAB BLOOD ORDERABLES Karine l Result Performing Organization Address [facility]/ZIP Co de Phone Number [facility] Department [place] [address] * POCT glucose (10/28/2024 7:24 PM AVIATION ORDNANCE OFFICER) Glucose, POC 92 70 - 199 mg/dL Blood 10/28/2024 7:24 PM AVIATION ORDNANCE OFFICER 10/28/2024 7:24 PM AVIATION ORDNANCE OFFICER us Florentino Mcgowan MD LAB POCT ORDERABLES - DEV ICE Final Result [facility] Department [place] [address] * XR Ankle Right 3 or More Views (10/28/2024 4:06 PM AVIATION ORDNANCE OFFICER) Anatomical Region Laterality Modality Lower Extremities, Ankle Right Compute d Radiography 10/28/2024 4:34 PM AVIATION ORDNANCE OFFICER Impressions 10/28/2024 4:38 PM AVIATION ORDNANCE OFFICER 1. Interval reduction and internal fixation of medial and lateral malleolar right ankle fracture. Reduced non-fixated posterior malleolar fracture. 2. Possible soft tissue wound over the anterior ankle as well as the medial ankle. Recommend correlation with exam. Dictated by: Daniel Sullivan MD The radiology attending physician has personally reviewed this study, and had reviewed and/or edited this written report and agrees with it. Electronically signed by: Joseph Botello D.O. Narrative 10/28/2024 4:38 PM AVIATION ORDNANCE OFFICER EXAMINATION: XR ANKLE RIGHT 3 OR MORE VIEWS HISTORY: Trimalleolar right ankle fracture FINDINGS: 4 views the right ankle are compared to multiple prior radiographs and CT 09/01/2024. Interval reduction and internal fixation of a lateral malleolar fracture at the level of the syndesmosis, now in near-anatomic alignment. Instrumentation is intact. Interval reduction and internal fixation of the medial malleolar fracture, now near anatomic alignment. The construct includes 2 syndesmotic screws. Instrumentation is intact. There is minimal osteolysis around the superior most syndesmotic screw. Screw tracks are noted in the calcaneus and tibial diaphysis. There is diffuse osteopenia. There is extensive swelling of the lower extremity with apparent soft tissue wound over the anterior ankle. Suspect additional wound over the medial ankle. Procedure Note Joseph Botello, - 10/28/2024 EXAMINATION: XR ANKLE RIGHT 3 OR MORE VIEWS HISTORY: Trimalleolar right ankle fracture FINDINGS: 4 views the right ankle are compared to multiple prior radiographs and CT 09/01/2024. Interval reduction and internal fixation of a lateral malleolar fracture at the level of the syndesmosis, now in near-anatomic alignment. Instrumentation is intact. Interval reduction and internal fixation of the medial malleolar fracture, now near anatomic alignment. The construct includes 2 syndesmotic screws. Instrumentation is intact. There is minimal osteolysis around the superior most syndesmotic screw. Screw tracks are noted in the calcaneus and tibial diaphysis. There is diffuse osteopenia. There is extensive swelling of the lower extremity with apparent soft tissue wound over the anterior ankle. Suspect additional wound over the medial ankle. IMPRESSION: 1. Interval reduction and internal fixation of medial and lateral malleolar right ankle fracture. Reduced non-fixated posterior malleolar fracture. 2. Possible soft tissue wound over the anterior ankle as well as the medial ankle. Recommend correlation with exam. Dictated by: Daniel Sullivan MD The radiology attending physician has personally reviewed this study, and had reviewed and/or edited this written report and agrees with it. Electronically signed by: Joseph Botello D.O. Florentino Mcgowan MD IMG XR PROCEDURES Final R esult * XR Ankle Right 3 or More Views (10/26/2024 4:22 PM AVIATION ORDNANCE OFFICER) Anatomical Region Laterality Modality Lower Extremities, Ankle Right Radiogr aphic Imaging Historical Provider IMG XR PROCEDURES Final R esult * US Thyroid (09/02/2024 1:54 PM AVIATION ORDNANCE OFFICER) Anatomical Region Laterality Modality Head and Neck N/A Ultrasound 09/02/2024 2:03 PM AVIATION ORDNANCE OFFICER Impressions 09/02/2024 2:08 PM AVIATION ORDNANCE OFFICER 1. Enlarged, heterogeneous thyroid. No thyroid nodule seen. Dictated by: Ria Owusu M.D. The radiology attending physician has personally reviewed this study, and had reviewed and/or edited this written report and agrees with it. Electronically signed by: Gala Lee M.D. Narrative 09/02/2024 2:08 PM AVIATION ORDNANCE OFFICER EXAMINATION: THYROID SONOGRAM HISTORY: Goiter seen on CT Prior Biopsy: No Patient Risk Factors: None Prior Ultrasound: None FINDINGS: The thyroid is enlarged in size. Size right lobe: 6.1 cm craniocaudal, 1.9 cm transverse, 2.2 cm AP. Size left lobe: 5.9 cm craniocaudal, 3.0 cm transverse, 3.4 cm AP. Size isthmus: 0.8 cm AP. The thyroid is heterogeneous. Estimated total number of nodules >/= 1 cm: 0 Number of spongiform nodules >/= 2 cm not described below (TR1): 0 Number of mixed cystic and solid nodules >/= 1.5 cm not described below (TR2): 0 Procedure Note Gala Lee MD - 09/02/2024 EXAMINATION: THYROID SONOGRAM HISTORY: Goiter seen on CT Prior Biopsy: No Patient Risk Factors: None Prior Ultrasound: None FINDINGS: The thyroid is enlarged in size. Size right lobe: 6.1 cm craniocaudal, 1.9 cm transverse, 2.2 cm AP. Size left lobe: 5.9 cm craniocaudal, 3.0 cm transverse, 3.4 cm AP. Size isthmus: 0.8 cm AP. The thyroid is heterogeneous. Estimated total number of nodules >/= 1 cm: 0 Number of spongiform nodules >/= 2 cm not described below (TR1): 0 Number of mixed cystic and solid nodules >/= 1.5 cm not described below (TR2): 0 IMPRESSION: 1. Enlarged, heterogeneous thyroid. No thyroid nodule seen. Dictated by: Ria Owusu M.D. The radiology attending physician has personally reviewed this study, and had reviewed and/or edited this written report and agrees with it. Electronically signed by: Gala Lee M.D. Lu Damaris Lua DO [facility] US PROCEDURES F inal Result * POCT glucose (09/02/2024 11:56 AM AVIATION ORDNANCE OFFICER) Glucose, POC 91 70 - 199 mg/dL Blood 09/02/2024 11:5 6 AM AVIATION ORDNANCE OFFICER 09/02/2024 11:56 AM AVIATION ORDNANCE OFFICER Lu Damaris [employer] DO LAB POCT ORDERABLES - DEVICE Final Result Performing Organization Address City/[facility] Co de Phone Number [facility] [place] [address] * POCT glucose (09/02/2024 7:54 AM AVIATION ORDNANCE OFFICER) Glucose, POC 82 70 - 199 mg/dL Blood 09/02/2024 7:54 AM AVIATION ORDNANCE OFFICER 09/02/2024 7:54 AM AVIATION ORDNANCE OFFICER Lu Dam[facility] LAB POCT ORDERABLES - DEVICE Final Result Performing Organization Address [facility] de Phone Number [facility] [place] [address] * eGFR (09/01/2024 11:19 PM AVIATION ORDNANCE OFFICER) eGFR 61 >=60 mL/min/1. 73 m2 Comment: Interpretive Data Reference Interval Normal >/= 90 mL/min/1.73m2 Mildly decreased* 60 - 89 mL/min/1.73m2 Mildly to moderately decreased 45 - 59 mL/min/1.73m2 Moderately to severely decreased 30 - 44 mL/min/1.73m2 Severely decreased 15 - 29 mL/min/1.73m2 Kidney Failure < 15 mL/min/1.73m2 *Relative to young adult level Estimated glomerular filtration rate is determined by the 2020 CKD-EPI equation recommended by the National Kidney Foundation (A Unifying Approach to GFR Estimation: Recommendations of the NKF-ASK Task Force on Reassessing the Inclusion of Race in Diagnosing Kidney Disease, JASN 2020). The CKD-EPI equation should not be used for patients with unstable renal function and has not been validated in children and those over 70. Current interpretive data was last reviewed 2021. Blood 09/01/2024 11:1 9 PM AVIATION ORDNANCE OFFICER 09/01/2024 11:48 PM AVIATION ORDNANCE OFFICER [facility] LAB BLOOD ORDERABLE S Final Result [facility] [place] [address] * (ABNORMAL) CBC without differential (09/01/2024 11:19 PM AVIATION ORDNANCE OFFICER) WBC 7.1 3.8 - 9.9 K/cumm Hgb 9.2(L) 11.9 - 15.5 g/dL [facility] Hct 30.0(L) 35.6 - 45.5 % [facility] Plt 170 150 - 400 K/cumm [facility] MPV 10.9 9.1 - 12.3 fL [facility] RBC 3.30(L) 3.90 - 5.20 M/cumm [facility] MCV 90.9 81.3 - 96.4 fL [facility] MCH 27.9 27.1 - 33.3 pg [facility] MCHC 30.7(L) 32.3 - 35.7 g/dL [facility] RDW CV 16.5(H) 11.1 - 14.9 % [facility] RDW SD 55.3(H) 35.7 - 48.1 fL [facility] NRBC abs 0.00 0.00 - 0.01 K/cumm [facility] Blood 09/01/2024 11:1 9 PM AVIATION ORDNANCE OFFICER 09/01/2024 11:48 PM AVIATION ORDNANCE OFFICER Lu [facility] LAB BLOOD ORDERABLE S Final Result [facility] [place] [address] * Magnesium (09/01/2024 11:19 PM AVIATION ORDNANCE OFFICER) Magnesium 2.5 1.4 - 2.5 mg/dL Blood 09/01/2024 11:1 9 PM AVIATION ORDNANCE OFFICER 09/01/2024 11:48 PM AVIATION ORDNANCE OFFICER Lu Damaris [facility] LAB BLOOD ORDERABLE S Final Result [facility] Department [place] [address] * Basic metabolic panel (09/01/2024 11:19 PM AVIATION ORDNANCE OFFICER) Pathologist [facility] [place] Sodium 144 135 - 145 mmol/L Potassium, pl 4.3 3.3 - 4.9 mmol/L [facility] Chloride 110 97 - 110 mmol/L [facility] CO2 26 22 - 32 mmol/L [facility] Anion gap 8 2 - 15 mmol/L [facility] BUN 16 6 - 25 mg/dL [facility] Creatinine 0.99 0.60 - 1.10 mg/dL [facility] Glucose 83 70 - 199 mg/dL [facility] Comment: Interpretive Data Fasting glucose >/= 126 mg/dl is diagnostic for diabetes. Fasting is defined as no caloric intake for at least 8 hours. Fasting glucose between 100 mg/dl to 125 mg/dl is diagnostic of prediabetes. In a patient with classic symptoms of hyperglycemia or hyperglycemic crisis, a random glucose >/= 200 mg/dl is diagnostic for diabetes. In the absence of unequivocal hyperglycemia, results should be confirmed by repeat testing. The classification and Diagnosis of Diabetes Diabetes Care 2021; 46: S19-S40. Current interpretive data was last revised 2022. Calcium 8.5 8.5 - 10.3 mg/dL [facility] Blood 09/01/2024 11:1 9 PM AVIATION ORDNANCE OFFICER 09/01/2024 11:48 PM AVIATION ORDNANCE OFFICER Lu [facility] LAB BLOOD ORDERABLE S Final Result Performing Organization Address City/[facility]/ZIP Co de Phone Number [facility] Department [place] [address] * POCT glucose (09/01/2024 8:27 PM AVIATION ORDNANCE OFFICER) Glucose, POC 100 70 - 199 mg/dL Blood 09/01/2024 8:27 PM AVIATION ORDNANCE OFFICER 09/01/2024 8:27 PM AVIATION ORDNANCE OFFICER Lu [facility] DO LAB POCT ORDERABLES - DEVICE Final Result Performing Organization Address [facility] Phone Number [facility] [place] [address] * POCT glucose (09/01/2024 5:07 PM AVIATION ORDNANCE OFFICER) Glucose, POC 92 70 - 199 mg/dL Blood 09/01/2024 5:07 PM AVIATION ORDNANCE OFFICER 09/01/2024 5:07 PM AVIATION ORDNANCE OFFICER [facility] Damaris [facility] DO LAB POCT ORDERABLES - DEVICE Final Result Performing Organization Address [facility] Phone Number [facility] [place] [address] * POCT glucose (09/01/2024 4:49 PM AVIATION ORDNANCE OFFICER) Glucose, POC 77 70 - 199 mg/dL Blood 09/01/2024 4:49 PM AVIATION ORDNANCE OFFICER 09/01/2024 4:49 PM AVIATION ORDNANCE OFFICER Result [facility] Damaris [facility] LAB POCT ORDERABLES - DEVICE Final Result Performing Organization Address [facility] [place] [address] * ME AN PROCEDURE PLACEHOLDER (09/01/2024 1:53 PM AVIATION ORDNANCE OFFICER) Narrative Stephen Mitchell MD - 09/01/2024 1:53 PM AVIATION ORDNANCE OFFICER Mohamud Coates MD 09/01/2024 1:54 PM Peripheral Block Patient location during procedure: pre-op holding Reason for block: post-op pain management per surgeon request Ultrasound image in chart or stored: yes Block type: single shot Laterality: right Block type: saphenous nerve block - subsartorial approach Staff: Supervising provider: Stephen Mitchell MD Placed by: Resident: Mohamud Coates MD Procedure prep: Preprocedure checklist: patient identified, procedure contraindications assessed, site marked, procedure consent, surgical consent, IV checked, risks, benefits and alternatives discussed, monitors and equipment checked and timeout performed Patient position: supine Procedure performed while patient: sedate with meaningful contact Monitoring: ECG, oximetry and blood pressure Supplemental O2: nasal cannula Prep solution: chlorhexidine/alcohol PPE: provider hat/mask, sterile gloves and sterile probe cover and gel Peripheral nerve block: Technique: ultrasound guided Needle type: insulated and short-bevel Needle gauge: 22 G Needle length: 80 mm Injection assessment: injection made incrementally with constant monitoring, local visualized surrounding nerve on ultrasound, negative aspiration for heme, no paresthesias noted, normal resistance to injection and see flowsheet for medication details Assessment: Block success: full evaluation pending Events: patient tolerated procedure well with no complications Selene Muñoz MD ANESTHESIA ORD ERABLES Final Result * ME AN PROCEDURE PLACEHOLDER (09/01/2024 1:53 PM AVIATION ORDNANCE OFFICER) Narrative Stephen Mitchell MD - 09/01/2024 1:53 PM AVIATION ORDNANCE OFFICER Mohamud Coates MD 09/01/2024 1:53 PM Peripheral Block Reason for block: post-op pain management per surgeon request Ultrasound image in chart or stored: yes Block type: single shot Laterality: right Block type: sciatic nerve block - popliteal Staff: Supervising provider: Stephen Mitchell MD Placed by: Resident: Mohamud Coates MD Procedure prep: Preprocedure checklist: patient identified, procedure contraindications assessed, site marked, procedure consent, surgical consent, IV checked, risks, benefits and alternatives discussed, monitors and equipment checked and timeout performed Patient position: supine Procedure performed while patient: sedate with meaningful contact Monitoring: ECG, oximetry and blood pressure Supplemental O2: nasal cannula Prep solution: chlorhexidine/alcohol PPE: provider hat/mask, sterile gloves and sterile probe cover and gel Peripheral nerve block: Technique: ultrasound guided Needle type: insulated and short-bevel Needle gauge: 22 G Needle length: 80 mm Injection assessment: injection made incrementally with constant monitoring, local visualized surrounding nerve on ultrasound, negative aspiration for heme, no paresthesias noted, normal resistance to injection and see flowsheet for medication details Assessment: Block success: full evaluation pending Events: patient tolerated procedure well with no complications Result [facility] Selene Muoñz MD ANESTHESIA ORD ERABLES Final Result * POCT glucose (09/01/2024 10:49 AM AVIATION ORDNANCE OFFICER) Glucose, POC 110 70 - 199 mg/dL Blood 09/01/2024 10:4 9 AM AVIATION ORDNANCE OFFICER 09/01/2024 10:49 AM AVIATION ORDNANCE OFFICER Result [facility] Lu Lua DO LAB POCT ORDERABLES - DEVICE Final Result Performing Organization Address [facility] de Phone Number RADHA [facility] [place] [address] * FL Fluoroscopy < 1 Hour (09/01/2024 10:03 AM AVIATION ORDNANCE OFFICER) Narrative [facility] - 09/01/2024 10:03 AM AVIATION ORDNANCE OFFICER The images from this study are not interpreted by Radiology. Please refer to the physician's procedure / OR operative note. Result [facility] Florentino Mcgowan MD IMG FLUOROSCOPY PROCEDURE S Final Result Performing Organization Address [facility] de Phone Number [email or web address] * POCT glucose (09/01/2024 8:52 AM AVIATION ORDNANCE OFFICER) Glucose, POC 73 70 - 199 mg/dL Blood 09/01/2024 8:52 AM AVIATION ORDNANCE OFFICER 09/01/2024 8:52 AM AVIATION ORDNANCE OFFICER Result [facility] Lu Lua DO LAB POCT ORDERABLES - DEVICE Final Result Performing Organization Address [facility] de Phone Number RAD[facility] [place] [address] * ME AN ELECTIVE ENDOTRACHEAL AIRWAY, ME AN PROCEDURE PLACEHOLDER (09/01/2024 8:13 AM AVIATION ORDNANCE OFFICER) Narrative Milian, Anita, NARROW FABR[employer] WEAVER - 09/01/2024 8:13 AM AVIATION ORDNANCE OFFICER Anita Milian CRNA 09/01/2024 8:16 AM Airway Patient location: OR Urgency: elective Indications for airway management: anesthesia Difficult airway: no Staff: Supervising provider: Selene Muñoz MD Placed by: NARROW FABR[employer] WEAVER: Anita Milian CRNA Emergent airway documentation: Risks and benefits discussed: yes Consent obtained: yes Consent given by: patient Airway prep: Preoxygenated: yes Patient position: sniffing Mask difficulty assessment: 2 - vent by mask + OA or adjuvant Sedation level during airway: GA Final airway details: Final airway type: endotracheal airway Tube type: ETT ETT size: 7.0 mm Technique used for successful ETT placement: video laryngoscopy Devices/Methods used in placement: stylet Insertion site: oral Blade type: Vidhi Video blade type: Moore Blade size: 3 Cormack-Lehane (video): grade I - full view of glottis ETT to lips: 22 cm Placement verified by: auscultation and CO2 detection Airway secured with: silk tape Number of attempts: 1 Additional comments: ETT placed by ER Resident. us Selene Muñoz MD ANESTHESIA ORD ERABLES Final Result * POCT glucose (09/01/2024 6:19 AM AVIATION ORDNANCE OFFICER) Glucose, POC 79 70 - 199 mg/dL Blood 09/01/2024 6:19 AM AVIATION ORDNANCE OFFICER 09/01/2024 6:19 AM AVIATION ORDNANCE OFFICER Lu Lua DO LAB POCT ORDERABLES - DEVICE Final Result [facility] [place] [address] * CT Ankle Right WO Contrast (09/01/2024 5:25 AM AVIATION ORDNANCE OFFICER) Anatomical Region Laterality Modality Ankle Right Computed Tomogra phy 09/01/2024 6:08 AM AVIATION ORDNANCE OFFICER Impressions 09/01/2024 7:34 AM AVIATION ORDNANCE OFFICER Trimalleolar right ankle fracture dislocation status post reduction and external fixation. There is up to 4 mm of articular incongruence along the posterior medial tibial plafond. There are small ossific fracture fragments in the anteromedial joint space measuring up to 9 mm. Dictated by: Jeancarlos Omalley MD The radiology attending physician has personally reviewed this study, and had reviewed and/or edited this written report and agrees with it. Electronically signed by: Memo Méndez M.D. Narrative 09/01/2024 7:34 AM AVIATION ORDNANCE OFFICER EXAMINATION: CT ANKLE RIGHT WO CONTRAST HISTORY: Right ankle fracture status post external fixation TECHNIQUE: Transaxial computed tomographic images of the right ankle were obtained without intravenous contrast according to the standard protocol. COMPARISON: Right ankle radiographs 08/28/2024 FINDINGS: There is a trimalleolar right ankle fracture dislocation status post external fixation. This includes a comminuted and displaced medial malleolus component, a mildly displaced lateral malleolus component that extends to the syndesmosis, and a comminuted and displaced posterior malleolar component. There is a to 4 mm of articular incongruence along the posterior medial tibial plafond (measured on series 7, image 244) there is a 9 mm ossific fracture fragment in the anteromedial joint space (series 7, image 208). Additional smaller fracture fragments are present in the anteromedial joint space is well. The external fixation as through the calcaneus. There is bimalleolar soft tissue thickening, lateral greater than medial, compatible with hemorrhage and edema. Procedure Note Memo Méndez MD PhD - 09/01/2024 EXAMINATION: CT ANKLE RIGHT WO CONTRAST HISTORY: Right ankle fracture status post external fixation TECHNIQUE: Transaxial computed tomographic images of the right ankle were obtained without intravenous contrast according to the standard protocol. COMPARISON: Right ankle radiographs 08/28/2024 FINDINGS: There is a trimalleolar right ankle fracture dislocation status post external fixation. This includes a comminuted and displaced medial malleolus component, a mildly displaced lateral malleolus component that extends to the syndesmosis, and a comminuted and displaced posterior malleolar component. There is a to 4 mm of articular incongruence along the posterior medial tibial plafond (measured on series 7, image 244) there is a 9 mm ossific fracture fragment in the anteromedial joint space (series 7, image 208). Additional smaller fracture fragments are present in the anteromedial joint space is well. The external fixation as through the calcaneus. There is bimalleolar soft tissue thickening, lateral greater than medial, compatible with hemorrhage and edema. IMPRESSION: Trimalleolar right ankle fracture dislocation status post reduction and external fixation. There is up to 4 mm of articular incongruence along the posterior medial tibial plafond. There are small ossific fracture fragments in the anteromedial joint space measuring up to 9 mm. Dictated by: Jeancarlos Omalley MD The radiology attending physician has personally reviewed this study, and had reviewed and/or edited this written report and agrees with it. Electronically signed by: Memo Méndez M.D. Lu Lua DO IMG CT PROCEDURES F inal Result * (ABNORMAL) eGFR (08/31/2024 11:09 PM AVIATION ORDNANCE OFFICER) eGFR 56(L) >=60 mL/min/1. 73 m2 Comment: Interpretive Data Reference Interval Normal >/= 90 mL/min/1.73m2 Mildly decreased* 60 - 89 mL/min/1.73m2 Mildly to moderately decreased 45 - 59 mL/min/1.73m2 Moderately to severely decreased 30 - 44 mL/min/1.73m2 Severely decreased 15 - 29 mL/min/1.73m2 Kidney Failure < 15 mL/min/1.73m2 *Relative to young adult level Estimated glomerular filtration rate is determined by the 2020 CKD-EPI equation recommended by the National Kidney Foundation (A Unifying Approach to GFR Estimation: Recommendations of the NKF-ASK Task Force on Reassessing the Inclusion of Race in Diagnosing Kidney Disease, JASN 202). The CKD-EPI equation should not be used for patients with unstable renal function and has not been validated in children and those over 70. Current interpretive data was last reviewed 2021. Blood 08/31/2024 11:0 9 PM AVIATION ORDNANCE OFFICER 08/31/2024 11:45 PM AVIATION ORDNANCE OFFICER Lu Lua DO LAB BLOOD ORDERABLE S Final Result Performing Organization Address [facility] de Phone Number [facility] [place] [address] * Protime-INR (08/31/2024 11:09 PM AVIATION ORDNANCE OFFICER) Pathologist [facility] [place] PT 11.5 9.7 - 13.0 sec INR 1.06 0.90 - 1.20 [facility] Comment: Interpretive data Oral anticoagulant therapeutic ranges: Venous thromboembolism prophylaxis or treatment: 2.0-3.0 CARDIOLOGY Standard range: 2.0-3.0 High-intensity range: 2.5-3.5 Refer to indication-specific guidelines for appropriate target ranges for prosthetic heart valve replacement. Current interpretive data was last revised on 2019. Blood 08/31/2024 11:0 9 PM AVIATION ORDNANCE OFFICER 09/01/2024 12:21 AM AVIATION ORDNANCE OFFICER Lu Damaris [facility] LAB BLOOD ORDERABLE S Final Result Performing Organization Address [facility] de Phone Number [facility] [place] [address] * (ABNORMAL) CBC without differential (08/31/2024 11:09 PM AVIATION ORDNANCE OFFICER) [facility] WBC 7.1 3.8 - 9.9 K/cumm Hgb 10.1(L) 11.9 - 15.5 g/dL [facility] Hct 32.7(L) 35.6 - 45.5 % [facility] Plt 162 150 - 400 K/cumm [facility] MPV 11.1 9.1 - 12.3 fL [facility] RBC 3.60(L) 3.90 - 5.20 M/cumm [facility] MCV 90.8 81.3 - 96.4 fL [facility] MCH 28.1 27.1 - 33.3 pg [facility] MCHC 30.9(L) 32.3 - 35.7 g/dL [facility] RDW CV 16.6(H) 11.1 - 14.9 % [facility] RDW SD 55.8(H) 35.7 - 48.1 fL [facility] NRBC abs 0.00 0.00 - 0.01 K/cumm [facility] Blood 08/31/2024 11:0 9 PM AVIATION ORDNANCE OFFICER 08/31/2024 11:45 PM AVIATION ORDNANCE OFFICER [facility] LAB BLOOD ORDERABLE S Final Result Performing Organization Address City/[facility] Co de Phone Number [facility] [place] [address] * Type and screen (08/31/2024 11:09 PM AVIATION ORDNANCE OFFICER) Pathologist [facility] [place] ABO Rh A Positive Vivi, indirect Negative [facility] Blood 08/31/2024 11:0 9 PM AVIATION ORDNANCE OFFICER 08/31/2024 11:49 PM AVIATION ORDNANCE OFFICER Narrative [facility] - 09/01/2024 12:44 AM AVIATION ORDNANCE OFFICER Has the patient had Daratumumab or Isatuximab in the past 6 months?->Unknown [facility] BLOOD BANK TEST ORDERABLES Final Result Performing Organization Address [facility] de Phone Number [facility] Department [place] [address] * Magnesium (08/31/2024 11:09 PM AVIATION ORDNANCE OFFICER) Pathologist [facility] [place] Magnesium 2.3 1.4 - 2.5 mg/dL Blood 08/31/2024 11:0 9 PM AVIATION ORDNANCE OFFICER 08/31/2024 11:45 PM AVIATION ORDNANCE OFFICER [facility] BLOOD ORDERABLE S Final Result Performing Organization Address [facility] Co de Phone Number [facility] Department [place] [address] * Basic metabolic panel (08/31/2024 11:09 PM AVIATION ORDNANCE OFFICER) Sodium 142 135 - 145 mmol/L Potassium, pl 4.1 3.3 - 4.9 mmol/L [facility] Chloride 108 97 - 110 mmol/L [facility] CO2 26 22 - 32 mmol/L [facility] Anion gap 8 2 - 15 mmol/L [facility] BUN 21 6 - 25 mg/dL [facility] Creatinine 1.06 0.60 - 1.10 mg/dL [facility] Glucose 93 70 - 199 mg/dL [facility] Comment: Interpretive Data Fasting glucose >/= 126 mg/dl is diagnostic for diabetes. Fasting is defined as no caloric intake for at least 8 hours. Fasting glucose between 100 mg/dl to 125 mg/dl is diagnostic of prediabetes. In a patient with classic symptoms of hyperglycemia or hyperglycemic crisis, a random glucose >/= 200 mg/dl is diagnostic for diabetes. In the absence of unequivocal hyperglycemia, results should be confirmed by repeat testing. The classification and Diagnosis of Diabetes Diabetes Care 2021; 46: S19-S40. Current interpretive data was last revised 2022. Calcium 8.6 8.5 - 10.3 mg/dL [facility] Blood 08/31/2024 11:0 9 PM AVIATION ORDNANCE OFFICER 08/31/2024 11:45 PM AVIATION ORDNANCE OFFICER Lu Lua DO LAB BLOOD ORDERABLE S Final Result Performing Organization Address [facility]/ZIP Co de Phone Number [facility] Department [place] [address] * POCT glucose (08/31/2024 9:27 PM AVIATION ORDNANCE OFFICER) Glucose, POC 162 70 - 199 mg/dL Blood 08/31/2024 9:27 PM AVIATION ORDNANCE OFFICER 08/31/2024 9:27 PM AVIATION ORDNANCE OFFICER Lu Lua DO LAB POCT ORDERABLES - DEVICE Final Result Performing Organization Address City/[facility]/ZIP Co de Phone Number [facility] Department [place] [address] * POCT glucose (08/31/2024 5:03 PM AVIATION ORDNANCE OFFICER) Glucose, POC 123 70 - 199 mg/dL Blood 08/31/2024 5:03 PM AVIATION ORDNANCE OFFICER 08/31/2024 5:03 PM AVIATION ORDNANCE OFFICER Lu Damaris [facility] DO LAB POCT ORDERABLES - DEVICE [place] [address] * POCT glucose (08/31/2024 11:49 AM AVIATION ORDNANCE OFFICER) Glucose, POC 97 70 - 199 mg/dL Blood 08/31/2024 11:4 9 AM AVIATION ORDNANCE OFFICER 08/31/2024 11:49 AM AVIATION ORDNANCE OFFICER Lu Damaris MulliganPlusagapitoestevan DO LAB POCT ORDERABLES - DEVICE Final Result Performing Organization Address City/[facility]/ZIP Co de Phone Number [facility] [place] [address] * POCT glucose (08/31/2024 8:18 AM AVIATION ORDNANCE OFFICER) Glucose, POC 95 70 - 199 mg/dL Blood 08/31/2024 8:18 AM AVIATION ORDNANCE OFFICER 08/31/2024 8:18 AM AVIATION ORDNANCE OFFICER Lu Damaris MulliganPlusagapitoReaction DO LAB POCT ORDERABLES - DEVICE Final Result Performing Organization Address City/[facility]/ZIP Co [place] [address] * POCT glucose (08/31/2024 6:27 AM AVIATION ORDNANCE OFFICER) Glucose, POC 88 70 - 199 mg/dL Blood 08/31/2024 6:27 AM AVIATION ORDNANCE OFFICER 08/31/2024 6:27 AM AVIATION ORDNANCE OFFICER Lu Lua DO LAB POCT ORDERABLES - DEVICE Final Result Performing Organization Address [facility] Co de Phone Number [facility] Department [place] [address] * (ABNORMAL) eGFR (08/30/2024 9:01 PM AVIATION ORDNANCE OFFICER) eGFR 45(L) >=60 mL/min/1. 73 m2 Comment: Interpretive Data Reference Interval Normal >/= 90 mL/min/1.73m2 Mildly decreased* 60 - 89 mL/min/1.73m2 Mildly to moderately decreased 45 - 59 mL/min/1.73m2 Moderately to severely decreased 30 - 44 mL/min/1.73m2 Severely decreased 15 - 29 mL/min/1.73m2 Kidney Failure < 15 mL/min/1.73m2 *Relative to young adult level Estimated glomerular filtration rate is determined by the 2020 CKD-EPI equation recommended by the National Kidney Foundation (A Unifying Approach to GFR Estimation: Recommendations of the NKF-ASK Task Force on Reassessing the Inclusion of Race in Diagnosing Kidney Disease, JASN 2020). The CKD-EPI equation should not be used for patients with unstable renal function and has not been validated in children and those over 70. Current interpretive data was last reviewed 2021. Blood 08/30/2024 9:01 PM AVIATION ORDNANCE OFFICER 08/30/2024 11:03 PM AVIATION ORDNANCE OFFICER Lu Lua DO LAB BLOOD ORDERABLE S Final Result Performing Organization Address City/[facility]/ZIP Co de Phone Number [facility] Department [place] [address] * (ABNORMAL) CBC without differential (08/30/2024 9:01 PM AVIATION ORDNANCE OFFICER) WBC 7.1 3.8 - 9.9 K/cumm Hgb 9.5(L) 11.9 - 15.5 g/dL [facility] Hct 30.2(L) 35.6 - 45.5 % [facility] Plt 152 150 - 400 K/cumm [facility] MPV 11.5 9.1 - 12.3 fL [facility] RBC 3.36(L) 3.90 - 5.20 M/cumm [facility] MCV 89.9 81.3 - 96.4 fL [facility] MCH 28.3 27.1 - 33.3 pg [facility] MCHC 31.5(L) 32.3 - 35.7 g/dL [facility] RDW CV 16.7(H) 11.1 - 14.9 % [facility] RDW SD 55.0(H) 35.7 - 48.1 fL [facility] NRBC abs 0.00 0.00 - 0.01 K/cumm [facility] Blood 08/30/2024 9:01 PM AVIATION ORDNANCE OFFICER 08/30/2024 11:06 PM AVIATION ORDNANCE OFFICER [facility] Damaris [facility] LAB BLOOD ORDERABLE S Final Result Performing Organization Address City/[facility]/ZIP Co de Phone Number [facility] Department [place] [address] * Magnesium (08/30/2024 9:01 PM AVIATION ORDNANCE OFFICER) Pathologist [facility] [place] Magnesium 2.5 1.4 - 2.5 mg/dL Blood 08/30/2024 9:01 PM AVIATION ORDNANCE OFFICER 08/30/2024 11:03 PM AVIATION ORDNANCE OFFICER [facility] LAB BLOOD ORDERABLE S Final Result [facility] [place] [address] * (ABNORMAL) Basic metabolic panel (08/30/2024 9:01 PM AVIATION ORDNANCE OFFICER) Sodium 143 135 - 145 mmol/L Potassium, pl 4.1 3.3 - 4.9 mmol/L [facility] Chloride 109 97 - 110 mmol/L [facility] CO2 27 22 - 32 mmol/L [facility] Anion gap 7 2 - 15 mmol/L [facility] BUN 25 6 - 25 mg/dL [facility] Creatinine 1.27(H) 0.60 - 1.10 mg/dL [facility] Glucose 111 70 - 199 mg/dL [facility] Comment: Interpretive Data Fasting glucose >/= 126 mg/dl is diagnostic for diabetes. Fasting is defined as no caloric intake for at least 8 hours. Fasting glucose between 100 mg/dl to 125 mg/dl is diagnostic of prediabetes. In a patient with classic symptoms of hyperglycemia or hyperglycemic crisis, a random glucose >/= 200 mg/dl is diagnostic for diabetes. In the absence of unequivocal hyperglycemia, results should be confirmed by repeat testing. The classification and Diagnosis of Diabetes Diabetes Care 2021; 46: S19-S40. Current interpretive data was last revised 2022. Calcium 8.8 8.5 - 10.3 mg/dL [facility] Blood 08/30/2024 9:01 PM AVIATION ORDNANCE OFFICER 08/30/2024 11:03 PM AVIATION ORDNANCE OFFICER Lu Lua DO LAB BLOOD ORDERABLE S Final Result Performing Organization Address [facility] Co de Phone Number [facility] Department [place] [address] * POCT glucose (08/30/2024 5:47 PM AVIATION ORDNANCE OFFICER) [facility] Glucose, POC 111 70 - 199 mg/dL Blood 08/30/2024 5:47 PM AVIATION ORDNANCE OFFICER 08/30/2024 5:47 PM AVIATION ORDNANCE OFFICER Lu Lua DO LAB POCT ORDERABLES - DEVICE Final Result Performing Organization Address [facility]/ZIP Co de Phone Number [facility] Department [place] [address] * POCT glucose (08/30/2024 3:50 PM AVIATION ORDNANCE OFFICER) Glucose, POC 130 70 - 199 mg/dL Blood 08/30/2024 3:50 PM AVIATION ORDNANCE OFFICER 08/30/2024 3:50 PM AVIATION ORDNANCE OFFICER Lu Damaris MulliganPluspfer DO LAB POCT ORDERABLES - DEVICE Final Result Performing Organization Address [facility] Co de Phone Number [facility] [place] [address] * POCT glucose (08/30/2024 11:31 AM AVIATION ORDNANCE OFFICER) Glucose, POC 123 70 - 199 mg/dL Blood 08/30/2024 11:3 1 AM AVIATION ORDNANCE OFFICER 08/30/2024 11:31 AM AVIATION ORDNANCE OFFICER [facility] Damaris MulliganPluspfairmount behavioral [facility] DO LAB POCT ORDERABLES - DEVICE Final Result Performing Organization Address [facility] de Phone Number [facility] [place] [address] * POCT glucose (08/30/2024 8:21 AM AVIATION ORDNANCE OFFICER) Glucose, POC 98 70 - 199 mg/dL Blood 08/30/2024 8:21 AM AVIATION ORDNANCE OFFICER 08/30/2024 8:21 AM AVIATION ORDNANCE OFFICER Result [facility] DO LAB POCT ORDERABLES - DEVICE Final Result Performing Organization Address City/[facility] [place] [address] * Critical Care (08/30/2024 7:38 AM AVIATION ORDNANCE OFFICER) Narrative Fabien Jones MD - 08/30/2024 7:38 AM AVIATION ORDNANCE OFFICER Fabien Jones MD 08/30/2024 7:40 AM Critical Care Performed by: Fabien Jones MD Authorized by: Fabien Jones MD Critical care provider statement: As reflected in the history, physical exam, orders, notes, and/or MDM, I was personally present while the patient was critically ill and provided critical care services for 15 minutes, excluding time involved in separately billable procedures. Critical care was necessary to treat or prevent imminent or life-threatening deterioration of the following condition(s): unstable vital signs acute delirium severe long-bone fracture Critical care was time spent by me providing the following: continuous telemetry, continuous pulse oximetry, serial bedside patient exams and interpretation of bedside monitors, imaging, and arterial/venous lab draws frequent neurologic exams decision regarding NPO status supplemental oxygen management of limb weight bearing status and acute fracture care acute pain control I provided emergent necessary critical care medicine services to this patient. I ordered and reviewed test results and/or imaging studies. I spent time discussing the management of this critically ill patient with consultants and the medical staff. Fabien Jones MD IN CLINIC/BEDSIDE ORD ERABLES Final Result * (ABNORMAL) eGFR (08/29/2024 10:44 PM AVIATION ORDNANCE OFFICER) eGFR 49(L) >=60 mL/min/1. 73 m2 Comment: Interpretive Data Reference Interval Normal >/= 90 mL/min/1.73m2 Mildly decreased* 60 - 89 mL/min/1.73m2 Mildly to moderately decreased 45 - 59 mL/min/1.73m2 Moderately to severely decreased 30 - 44 mL/min/1.73m2 Severely decreased 15 - 29 mL/min/1.73m2 Kidney Failure < 15 mL/min/1.73m2 *Relative to young adult level Estimated glomerular filtration rate is determined by the 2020 CKD-EPI equation recommended by the National Kidney Foundation (A Unifying Approach to GFR Estimation: Recommendations of the NKF-ASK Task Force on Reassessing the Inclusion of Race in Diagnosing Kidney Disease, JASN 202). The CKD-EPI equation should not be used for patients with unstable renal function and has not been validated in children and those over 70. Current interpretive data was last reviewed 2021. Blood 08/29/2024 10:4 4 PM AVIATION ORDNANCE OFFICER 08/29/2024 11:51 PM AVIATION ORDNANCE OFFICER us Adina Zaldivar CASE PLANNER LAB BLOOD ORDERABLES Fi nal Result [facility] Department [place] [address] * Thyroid Function [place] (08/29/2024 10:44 PM AVIATION ORDNANCE OFFICER) [facility] TSH 2.56 0.30 - 4.20 mcIUnit/mL Blood 08/29/2024 10:4 4 PM AVIATION ORDNANCE OFFICER 08/29/2024 11:51 PM AVIATION ORDNANCE OFFICER Lu Lua DO LAB BLOOD ORDERABLE S Final Result Performing Organization Address City/[facility] Co de Phone Number [facility] [place] [address] * (ABNORMAL) CBC without differential (08/29/2024 10:44 PM AVIATION ORDNANCE OFFICER) [facility] WBC 8.6 3.8 - 9.9 K/cumm Hgb 10.5(L) 11.9 - 15.5 g/dL [facility] Hct 33.6(L) 35.6 - 45.5 % [facility] Plt 165 150 - 400 K/cumm [facility] MPV 11.1 9.1 - 12.3 fL [facility] RBC 3.67(L) 3.90 - 5.20 M/cumm [facility] MCV 91.6 81.3 - 96.4 fL [facility] MCH 28.6 27.1 - 33.3 pg [facility] MCHC 31.3(L) 32.3 - 35.7 g/dL [facility] RDW CV 16.5(H) 11.1 - 14.9 % [facility] RDW SD 55.8(H) 35.7 - 48.1 fL [facility] NRBC abs 0.00 0.00 - 0.01 K/cumm [facility] Blood 08/29/2024 10:4 4 PM AVIATION ORDNANCE OFFICER 08/29/2024 11:51 PM AVIATION ORDNANCE OFFICER [facility] LAB BLOOD ORDERABLE S Final Result Performing Organization Address City/[facility]/ZIP Co de Phone Number [facility] [place] [address] * Magnesium (08/29/2024 10:44 PM AVIATION ORDNANCE OFFICER) [facility] Magnesium 2.5 1.4 - 2.5 mg/dL Blood 08/29/2024 10:4 4 PM AVIATION ORDNANCE OFFICER 08/29/2024 11:51 PM AVIATION ORDNANCE OFFICER [place] [facility] BLOOD ORDERABLE S Final Result Performing Organization Address [facility] de Phone Number [facility] [place] [address] * (ABNORMAL) Basic metabolic panel (08/29/2024 10:44 PM AVIATION ORDNANCE OFFICER) [facility] Sodium 141 135 - 145 mmol/L Potassium, pl 4.0 3.3 - 4.9 mmol/L [facility] Chloride 105 97 - 110 mmol/L [facility] CO2 29 22 - 32 mmol/L [facility] Anion gap 7 2 - 15 mmol/L [facility] BUN 24 6 - 25 mg/dL [facility] Creatinine 1.18(H) 0.60 - 1.10 mg/dL [facility] Glucose 103 70 - 199 mg/dL [facility] Comment: Interpretive Data Fasting glucose >/= 126 mg/dl is diagnostic for diabetes. Fasting is defined as no caloric intake for at least 8 hours. Fasting glucose between 100 mg/dl to 125 mg/dl is diagnostic of prediabetes. In a patient with classic symptoms of hyperglycemia or hyperglycemic crisis, a random glucose >/= 200 mg/dl is diagnostic for diabetes. In the absence of unequivocal hyperglycemia, results should be confirmed by repeat testing. The classification and Diagnosis of Diabetes Diabetes Care 202; 46: S19-S40. Current interpretive data was last revised 2022. Calcium 9.3 8.5 - 10.3 mg/dL [facility] Blood 08/29/2024 10:4 4 PM AVIATION ORDNANCE OFFICER 08/29/2024 11:51 PM AVIATION ORDNANCE OFFICER [facility] BLOOD ORDERABLE S Final Result Performing Organization Address [facility] de Phone Number [facility] [place] [address] * POCT glucose (08/29/2024 7:29 PM AVIATION ORDNANCE OFFICER) Glucose, POC 139 70 - 199 mg/dL Blood 08/29/2024 7:29 PM AVIATION ORDNANCE OFFICER 08/29/2024 7:29 PM AVIATION ORDNANCE OFFICER [facility] POCT ORDERABLES - DEVICE Final Result Performing Organization Address [facility] de Phone Number [facility] [place] [address] * POCT glucose (08/29/2024 5:21 PM AVIATION ORDNANCE OFFICER) Glucose, POC 104 70 - 199 mg/dL Blood 08/29/2024 5:21 PM AVIATION ORDNANCE OFFICER 08/29/2024 5:21 PM AVIATION ORDNANCE OFFICER [facility] POCT ORDERABLES - DEVICE Final Result Performing Organization Address [facility] de Phone Number [facility] [place] [address] * POCT glucose (08/29/2024 5:08 PM AVIATION ORDNANCE OFFICER) Glucose, POC 95 70 - 199 mg/dL Blood 08/29/2024 5:08 PM AVIATION ORDNANCE OFFICER 08/29/2024 5:08 PM AVIATION ORDNANCE OFFICER Lu Cummingsagapitoestevan DO LAB POCT ORDERABLES - DEVICE Final Result Performing Organization Address [facility] Co de Phone Number [facility] [place] [address] * POCT glucose (08/29/2024 11:49 AM AVIATION ORDNANCE OFFICER) Glucose, POC 94 70 - 199 mg/dL Blood 08/29/2024 11:4 9 AM AVIATION ORDNANCE OFFICER 08/29/2024 11:49 AM AVIATION ORDNANCE OFFICER Lu Damaris Cummingsagapitoestevan DO LAB POCT ORDERABLES - DEVICE Final Result Performing Organization Address [facility] [place] [address] * FL Fluoroscopy < 1 Hour (08/29/2024 11:39 AM AVIATION ORDNANCE OFFICER) Narrative RAD_[email or web address] - 08/29/2024 11:39 AM AVIATION ORDNANCE OFFICER The images from this study are not interpreted by Radiology. Please refer to the physician's procedure / OR operative note. Harjinder Obrien MD IMG FLUOROSCOPY ME OCEDURES Final Result Performing Organization Address [facility] de Phone Number [email or web address] * POCT glucose (08/29/2024 11:09 AM AVIATION ORDNANCE OFFICER) Glucose, POC 121 70 - 199 mg/dL Blood 08/29/2024 11:0 9 AM AVIATION ORDNANCE OFFICER 08/29/2024 11:09 AM AVIATION ORDNANCE OFFICER Lu Damaris Lua DO LAB POCT ORDERABLES - DEVICE Final Result Performing Organization Address [facility] Co de Phone Number [facility] [place] [address] * ME AN ELECTIVE ENDOTRACHEAL AIRWAY, ME AN PROCEDURE PLACEHOLDER (08/29/2024 11:01 AM AVIATION ORDNANCE OFFICER) Narrative Selene Muñoz MD - 08/29/2024 11:01 AM AVIATION ORDNANCE OFFICER Selene Muñoz MD 08/29/2024 11:44 AM Airway Patient location: OR Urgency: elective Indications for airway management: anesthesia Difficult airway: no Staff: Supervising provider: Selene Muñoz MD Placed by: [employer]ARROW [employer] WEAVER: Juno Hart III, CRNA Emergent airway documentation: Risks and benefits discussed: yes Consent obtained: yes Consent given by: patient Airway prep: Preoxygenated: yes Patient position: sniffing MILS maintained throughout: yes Mask difficulty assessment: 1 - vent by mask Spontaneous ventilation during airway: absent Sedation level during airway: GA Final airway details: Final airway type: endotracheal airway Tube type: ETT ETT size: 7.0 mm Cuffed: yes Technique used for successful ETT placement: video laryngoscopy Insertion site: oral Blade type: Vidhi Video blade type: Moore Blade size: 3 Cormack-Lehane (video): grade I - full view of glottis Cuff volume: 10 mL Cuff inflated with: air ETT to lips: 22 cm Placement verified by: auscultation Airway secured with: silk tape Number of attempts: 1 Additional comments: Despite concerning appearance of left sided thyroid mass on CT neck imaging, bag mask ventilation was easy after propofol sedation and before neuromuscular blockade. Intubation via video laryngoscopy was easy as well, no gross anatomical abnormalities noted at or above glottis, no difficulty passing 7.0 ETT to normal depth. Selene Muñoz MD ANESTHESIA ORD ERABLES Edited Result - Final * POCT glucose (08/29/2024 10:31 AM AVIATION ORDNANCE OFFICER) Glucose, POC 109 70 - 199 mg/dL Blood 08/29/2024 10:3 1 AM AVIATION ORDNANCE OFFICER 08/29/2024 10:31 AM AVIATION ORDNANCE OFFICER Lu Lua DO LAB POCT ORDERABLES - DEVICE Final Result [facility] Department [place] [address] * ME AN PROCEDURE PLACEHOLDER (08/29/2024 10:02 AM AVIATION ORDNANCE OFFICER) Narrative Dov Altamirano MD - 08/29/2024 10:02 AM AVIATION ORDNANCE OFFICER Len Bingham MD PhD 08/29/2024 10:03 AM Peripheral Block Patient location during procedure: pre-op holding Reason for block: post-op pain management per surgeon request Ultrasound image in chart or stored: yes Block type: single shot Laterality: right Block type: saphenous nerve block - subsartorial approach Staff: Supervising provider: Dov Altamirano MD Placed by: Fellow: Len Bingham MD PhD Procedure prep: Preprocedure checklist: patient identified, procedure contraindications assessed, site marked, procedure consent, surgical consent, IV checked, risks, benefits and alternatives discussed, monitors and equipment checked and timeout performed Patient position: supine Procedure performed while patient: sedate with meaningful contact Monitoring: ECG, oximetry and blood pressure Supplemental O2: nasal cannula Prep solution: chlorhexidine/alcohol PPE: provider hat/mask, sterile gloves and sterile probe cover and gel Peripheral nerve block: Technique: ultrasound guided Needle type: insulated, short-bevel and echogenic Needle gauge: 22 G Needle length: 80 mm Injection assessment: injection made incrementally with constant monitoring, local visualized surrounding nerve on ultrasound, negative aspiration for heme, no paresthesias noted, normal resistance to injection and see flowsheet for medication details Assessment: Block success: full evaluation pending Events: patient tolerated procedure well with no complications Len Bingham MD PhD ANESTHESIA ORDERABLES Final Re sult * ME AN PROCEDURE PLACEHOLDER (08/29/2024 10:01 AM AVIATION ORDNANCE OFFICER) Narrative Dov Altamirano MD - 08/29/2024 10:01 AM AVIATION ORDNANCE OFFICER Len Bingham MD PhD 08/29/2024 10:01 AM Peripheral Block Patient location during procedure: pre-op holding Reason for block: post-op pain management per surgeon request Ultrasound image in chart or stored: yes Block type: single shot Laterality: right Block type: sciatic nerve block - popliteal Staff: Supervising provider: Dov Altamirano MD Placed by: Fellow: Len Bingham MD PhD Procedure prep: Preprocedure checklist: patient identified, procedure contraindications assessed, site marked, procedure consent, surgical consent, IV checked, risks, benefits and alternatives discussed, monitors and equipment checked and timeout performed Patient position: supine Procedure performed while patient: sedate with meaningful contact Monitoring: ECG, oximetry and blood pressure Supplemental O2: nasal cannula Prep solution: chlorhexidine/alcohol PPE: provider hat/mask, sterile gloves and sterile probe cover and gel Peripheral nerve block: Technique: ultrasound guided Needle type: insulated, short-bevel and echogenic Needle gauge: 22 G Needle length: 80 mm Injection assessment: injection made incrementally with constant monitoring, local visualized surrounding nerve on ultrasound, negative aspiration for heme, no paresthesias noted, normal resistance to injection and see flowsheet for medication details Assessment: Block success: full evaluation pending Events: patient tolerated procedure well with no complications us Len Bingham MD PhD ANESTHESIA ORDERABLES Final Re sult * CT Head and Cervical Spine WO Contrast (08/29/2024 8:58 AM AVIATION ORDNANCE OFFICER) Anatomical Region Laterality Modality Head and Neck N/A Computed Tomogra phy 08/29/2024 9:33 AM AVIATION ORDNANCE OFFICER Impressions 08/29/2024 9:49 AM AVIATION ORDNANCE OFFICER 1. No acute intracranial hemorrhage, territorial hypoattenuation, hydrocephalus or herniation.. 2. No evidence of acute fracture in the cervical spine. 3. Large multinodular goiter. Dictated by: Zafar Dougherty MD The radiology attending physician has personally reviewed this study, and had reviewed and/or edited this written report and agrees with it. Electronically signed by: Hiram Ash M.D, PHD Narrative 08/29/2024 9:49 AM AVIATION ORDNANCE OFFICER EXAMINATION: 1. CT head without contrast 2. CT of the cervical spine without contrast HISTORY: 74-year-old who presents after a fall. TECHNIQUE: CT of the head was performed with images acquired from skull base to vertex without intravenous contrast. CT of the cervical spine was performed according to the standard protocol without intravenous contrast. COMPARISON: No prior FINDINGS: HEAD: There is no acute intracranial hemorrhage. Ventricles are of normal size and morphology. No mass effect or midline shift is present. The jimenez-white matter differentiation is normal. The visualized portions of the orbits are normal. The visualized portions of the mastoids are normal. The visualized portions of the paranasal sinuses are normal. No fractures are identified. CERVICAL SPINE: Kyphosis of the cervical spine. There is no acute fracture. There is not an instrumented fusion of the left C2-C3 facet. Vertebral bodies are normal in height without compression fractures. Multilevel disc height loss and desiccation. The craniocervical junction is normal. Enlarged thyroid, with multinodular goiter. There are some calcifications of the thyroid gland. Mild multilevel facet and uncovertebral arthropathy. No high-grade neuroforaminal or canal stenosis. Procedure Note Hiram Ash MD PhD - 08/29/2024 EXAMINATION: 1. CT head without contrast 2. CT of the cervical spine without contrast HISTORY: 74-year-old who presents after a fall. TECHNIQUE: CT of the head was performed with images acquired from skull base to vertex without intravenous contrast. CT of the cervical spine was performed according to the standard protocol without intravenous contrast. COMPARISON: No prior FINDINGS: HEAD: There is no acute intracranial hemorrhage. Ventricles are of normal size and morphology. No mass effect or midline shift is present. The jimenez-white matter differentiation is normal. The visualized portions of the orbits are normal. The visualized portions of the mastoids are normal. The visualized portions of the paranasal sinuses are normal. No fractures are identified. CERVICAL SPINE: Kyphosis of the cervical spine. There is no acute fracture. There is not an instrumented fusion of the left C2-C3 facet. Vertebral bodies are normal in height without compression fractures. Multilevel disc height loss and desiccation. The craniocervical junction is normal. Enlarged thyroid, with multinodular goiter. There are some calcifications of the thyroid gland. Mild multilevel facet and uncovertebral arthropathy. No high-grade neuroforaminal or canal stenosis. IMPRESSION: 1. No acute intracranial hemorrhage, territorial hypoattenuation, hydrocephalus or herniation.. 2. No evidence of acute fracture in the cervical spine. 3. Large multinodular goiter. Dictated by: Zafar Dougherty MD The radiology attending physician has personally reviewed this study, and had reviewed and/or edited this written report and agrees with it. Electronically signed by: Hiram Ash M.D, PHD us Adina Zaldivar CASE PLANNER IMG CT PROCEDURES Final Result * POCT glucose (08/29/2024 8:33 AM AVIATION ORDNANCE OFFICER) Glucose, POC 112 70 - 199 mg/dL Blood 08/29/2024 8:33 AM AVIATION ORDNANCE OFFICER 08/29/2024 8:33 AM AVIATION ORDNANCE OFFICER Lu Damaris [facility] LAB POCT ORDERABLES - DEVICE Final Result Performing Organization Address [facility] Co de Phone Number [facility] Department [place] [address] * POCT glucose (08/29/2024 3:57 AM AVIATION ORDNANCE OFFICER) Glucose, POC 125 70 - 199 mg/dL Blood 08/29/2024 3:57 AM AVIATION ORDNANCE OFFICER 08/29/2024 3:57 AM AVIATION ORDNANCE OFFICER Lu Damaris [facility] DO LAB POCT ORDERABLES - DEVICE Final Result Performing Organization Address [facility] de Phone Number [facility] Department [place] [address] * ECG 12-LEAD (08/28/2024 10:00 PM AVIATION ORDNANCE OFFICER) Narrative [facility] - 08/28/2024 10:00 PM AVIATION ORDNANCE OFFICER Ritu Hussein MD 08/28/2024 10:01 PM ECG 12 lead Date/Time: 08/28/2024 10:00 PM Performed by: Ritu Hussein MD Authorized by: Andres Colon Jr., MD Rate: ECG rate: 90 ECG rate assessment: normal Comments: Rate of 90, sinus rhythm, first-degree AV block, nonspecific ST abnormalities, no STEMI,, otherwise normal intervals. Andres Colon Jr., MD ECG ORDERABLES Final Result Performing Organization Address [facility] Co de Phone Number [facility] * eGFR (08/28/2024 9:43 PM AVIATION ORDNANCE OFFICER) [facility] eGFR 69 >=60 mL/min/1. 73 m2 Comment: Interpretive Data Reference Interval Normal >/= 90 mL/min/1.73m2 Mildly decreased* 60 - 89 mL/min/1.73m2 Mildly to moderately decreased 45 - 59 mL/min/1.73m2 Moderately to severely decreased 30 - 44 mL/min/1.73m2 Severely decreased 15 - 29 mL/min/1.73m2 Kidney Failure < 15 mL/min/1.73m2 *Relative to young adult level Estimated glomerular filtration rate is determined by the 2020 CKD-EPI equation recommended by the National Kidney Foundation (A Unifying Approach to GFR Estimation: Recommendations of the NKF-ASK Task Force on Reassessing the Inclusion of Race in Diagnosing Kidney Disease, JASN 2020). The CKD-EPI equation should not be used for patients with unstable renal function and has not been validated in children and those over 70. Current interpretive data was last reviewed 2021. Blood 08/28/2024 9:43 PM AVIATION ORDNANCE OFFICER 08/28/2024 9:57 PM AVIATION ORDNANCE OFFICER us Andres Colon Jr., MD LAB BLOOD ORDERABLES F inal Result [facility] Department [place] [address] * (ABNORMAL) Differential, auto (08/28/2024 9:43 PM AVIATION ORDNANCE OFFICER) [facility] Neutrophil abs 6.6(H) 1.5 - 6.5 K/cumm Imm gran abs 0.0 0.0 - 0.1 K/cumm [facility] Lymphocyte abs 1.0 0.8 - 3.3 K/cumm [facility] Monocyte abs 0.2 0.2 - 0.8 K/cumm [facility] Eosinophil abs 0.0 0.0 - 0.5 K/cumm [facility] Basophil abs 0.0 0.0 - 0.1 K/cumm [facility] Neutrophil pct 83.5 % [facility] Comment: Interpretive Data Percent cell count reference ranges are not reported, since discordance with absolute values may lead to misinterpretation of CBC data. Current Interpretive Data was last revised on 2018. Imm gran pct 0.5 % [facility] Comment: Interpretive Data Percent cell count reference ranges are not reported, since discordance with absolute values may lead to misinterpretation of CBC data. Current Interpretive Data was last revised on 2018. Lymphocyte pct 13.0 % [facility] Comment: Interpretive Data Percent cell count reference ranges are not reported, since discordance with absolute values may lead to misinterpretation of CBC data. Current Interpretive Data was last revised on 2018. Monocyte pct 2.9 % [facility] Comment: Interpretive Data Percent cell count reference ranges are not reported, since discordance with absolute values may lead to misinterpretation of CBC data. Current Interpretive Data was last revised on 2018. Eosinophil pct 0.0 % [facility] Comment: Interpretive Data Percent cell count reference ranges are not reported, since discordance with absolute values may lead to misinterpretation of CBC data. Current Interpretive Data was last revised on 2018. Basophil pct 0.1 % [facility] Comment: Interpretive Data Percent cell count reference ranges are not reported, since discordance with absolute values may lead to misinterpretation of CBC data. Current Interpretive Data was last revised on 2018. Blood 08/28/2024 9:43 PM AVIATION ORDNANCE OFFICER 08/28/2024 9:57 PM AVIATION ORDNANCE OFFICER Andres Colon Jr., MD LAB BLOOD ORDERABLES F inal Result [facility] Department [place] [address] * (ABNORMAL) CBC with auto differential (08/28/2024 9:43 PM AVIATION ORDNANCE OFFICER) WBC 7.9 3.8 - 9.9 K/cumm Hgb 11.9 11.9 - 15.5 g/dL [facility] Hct 37.6 35.6 - 45.5 % [facility] Plt 184 150 - 400 K/cumm [facility] MPV 10.9 9.1 - 12.3 fL [facility] RBC 4.23 3.90 - 5.20 M/cumm [facility] MCV 88.9 81.3 - 96.4 fL [facility] MCH 28.1 27.1 - 33.3 pg [facility] MCHC 31.6(L) 32.3 - 35.7 g/dL [facility] RDW CV 16.0(H) 11.1 - 14.9 % [facility] RDW SD 52.4(H) 35.7 - 48.1 fL [facility] NRBC abs 0.00 0.00 - 0.01 K/cumm [facility] Blood 08/28/2024 9:43 PM AVIATION ORDNANCE OFFICER 08/28/2024 9:57 PM AVIATION ORDNANCE OFFICER Andres Colon Jr., MD LAB BLOOD ORDERABLES F inal Result Performing Organization Address [facility] de Phone Number [facility] Department [place] [address] * (ABNORMAL) aPTT (08/28/2024 9:43 PM AVIATION ORDNANCE OFFICER) Pathologist [facility] aPTT 27(L) 28 - 38 sec Comment: Interpretive Data Heparin therapeutic range: 66.0 - 100.0 seconds. Range based on correlation with therapeutic heparin activity range of 0.3 - 0.7 Units/mL. Current interpretive data was last revised on 2023. Blood 08/28/2024 9:43 PM AVIATION ORDNANCE OFFICER 08/28/2024 10:02 PM AVIATION ORDNANCE OFFICER Andres Colon Jr., MD LAB BLOOD ORDERABLES F inal Result Performing Organization Address [facility] de Phone Number [facility] Department [place] [address] * Protime-INR (08/28/2024 9:43 PM AVIATION ORDNANCE OFFICER) Pathologist [facility] PT 12.6 9.7 - 13.0 sec INR 1.16 0.90 - 1.20 [facility] Comment: Interpretive data Oral anticoagulant therapeutic ranges: Venous thromboembolism prophylaxis or treatment: 2.0-3.0 CARDIOLOGY Standard range: 2.0-3.0 High-intensity range: 2.5-3.5 Refer to indication-specific guidelines for appropriate target ranges for prosthetic heart valve replacement. Current interpretive data was last revised on 2019. Blood 08/28/2024 9:43 PM AVIATION ORDNANCE OFFICER 08/28/2024 10:02 PM AVIATION ORDNANCE OFFICER us Andres Colon Jr., MD LAB BLOOD ORDERABLES F inal Result [facility] Department [place] [address] * Lipid panel (08/28/2024 9:43 PM AVIATION ORDNANCE OFFICER) Cholesterol 160 30 - 199 mg/dL Comment: Interpretive Data Ages < or = 19 years Acceptable: <170 mg/dL Borderline high: 170-199 mg/dL High: >or= 200 mg/dL Ages > or = 20 years Desirable: <200 mg/dL Borderline high: 200-239 mg/dL High: >or= 240 mg/dL Literature References: 1. Expert Panel on Integrated Guidelines for Cardiovascular Health and Risk Reduction in Children and Adolescents. Pediatrics 2011;128:S213 2. NCEP Expert Panel. Circulation 2004;110:227 Current Interpretive Data was last revised on 2018. Triglycerides 51 <=149 mg/dL [facility] Comment: Interpretive Data Ages < or = 9 years Acceptable: <75 mg/dL Borderline high: 75-99 mg/dL High: >or= 100 mg/dL Ages 10 to 20 years Acceptable: <90 mg/dL Borderline high: 90-129 mg/dL High: >or= 130 mg/dL Ages > or = 20 years Desirable: <150 mg/dL Borderline high: 150-199 mg/dL High: 200-499 mg/dL Very high: >or= 499 mg/dL Literature References: 1. Expert Panel on Integrated Guidelines for Cardiovascular Health and Risk Reduction in Children and Adolescents. Pediatrics 2011;128:S213 2. NCEP Expert Panel. Circulation 2004;110:227 Current Interpretive Data was last revised on 2018. HDL 75 >=40 mg/dL [facility] Comment: Interpretive Data Ages < or = 19 years Acceptable: >45 mg/dL Borderline low: 40-45 mg/dL Low: <40 mg/dL Ages > or = 20 years Desirable: >or= 60 mg/dL Low: <40 mg/dL Literature References: 1. Expert Panel on Integrated Guidelines for Cardiovascular Health and Risk Reduction in Children and Adolescents. Pediatrics 2011;128:S213 2. NCEP Expert Panel. Circulation 2004;110:227 Current Interpretive Data was last revised on 2018. LDL, calculated 74 <=129 mg/dL [facility] Comment: Interpretive Data Ages < or = 19 years Acceptable: <110 mg/dL Borderline high: 110-129 mg/dL High: >or= 130 mg/dL Ages > or = 20 years Optimal: <100 mg/dL Near optimal: 100-129 mg/dL Borderline high: 130-159 mg/dL High: >160 mg/dL Calculated using the Mike LDL-C estimating equation. This equation was implemented on 2024. Prior to this date LDL-C was estimated using the Friedewald equation. Literature References: 1. Expert Panel on Integrated Guidelines for Cardiovascular Health and Risk Reduction in Children and Adolescents. Pediatrics 2011;128:S213 2. NCEP Expert Panel. Circulation 2004;110:227 3. Mike Guerra et al. CHARLES Cardiol. 2019January 22;5(5):540-548. doi: [email or web address] Current Interpretive Data was last revised on 2024. Non-HDL Cholesterol 85 mg/dL [facility] Comment: Interpretive Data Ages < or = 19 years Acceptable: <120 mg/dL Borderline high: 120-144 mg/dL High: >145 mg/dL Ages > or = 20 years When triglycerides are >200 mg/dL, Non-HDL cholesterol is a secondary target of therapy with treatment goals that are 30 mg/dL greater than the LDL cholesterol target. Literature References: 1. Expert Panel on Integrated Guidelines for Cardiovascular Health and Risk Reduction in Children and Adolescents. Pediatrics 2011;128:S213 2. NCEP Expert Panel. Circulation 2004;110:227 Current Interpretive Data was last revised on 2018. Chol/HDL ratio 2 [facility] Blood 08/28/2024 9:43 PM AVIATION [employer]DNANCE OFFICER 08/28/2024 9:57 PM AVIATION [employer]DNANCE OFFICER us Lu Lua DO LAB BLOOD ORDERABLE S Final Result [facility] Department [place] [address] * Comprehensive metabolic panel (08/28/2024 9:43 PM AVIATION ORDNANCE OFFICER) Sodium 142 135 - 145 mmol/L Potassium, pl 4.2 3.3 - 4.9 mmol/L [facility] Chloride 104 97 - 110 mmol/L [facility] CO2 26 22 - 32 mmol/L [facility] Anion gap 12 2 - 15 mmol/L [facility] BUN 20 6 - 25 mg/dL [facility] Creatinine 0.89 0.60 - 1.10 mg/dL [facility] Glucose 153 70 - 199 mg/dL [facility] Comment: Interpretive Data Fasting glucose >/= 126 mg/dl is diagnostic for diabetes. Fasting is defined as no caloric intake for at least 8 hours. Fasting glucose between 100 mg/dl to 125 mg/dl is diagnostic of prediabetes. In a patient with classic symptoms of hyperglycemia or hyperglycemic crisis, a random glucose >/= 200 mg/dl is diagnostic for diabetes. In the absence of unequivocal hyperglycemia, results should be confirmed by repeat testing. The classification and Diagnosis of Diabetes Diabetes Care 202; 46: S19-S40. Current interpretive data was last revised 2022. Calcium 9.6 8.5 - 10.3 mg/dL [facility] Bilirubin, total 0.4 0.1 - 1.2 mg/dL [facility] Protein, pl 8.2 6.5 - 8.5 g/dL [facility] Albumin 4.5 3.5 - 5.0 g/dL [facility] Alk phos 55 40 - 130 Units/L [facility] ALT 17 7 - 45 Units/L [facility] AST 33 10 - 45 Units/L [facility] Blood 08/28/2024 9:43 PM AV[employer]ATION [employer]NCE OFFICER 08/28/2024 9:57 PM AVIATION [employer]NCE OFFICER Andres Colon Jr., MD LAB BLOOD ORDERABLES F inal Result [facility] Department [place] [address] * Procedural Sedation (08/28/2024 9:11 PM AVIATION [employer]NCE OFFICER) Narrative Tawanda Bah MD - 08/28/2024 9:11 PM [employer]ATION [employer] OFFICER Andres Colon Jr., MD 08/28/2024 9:13 PM Procedural Sedation Date/Time: 08/28/2024 9:11 PM Performed by: Andres oClon Jr., MD Authorized by: Tawanda Bah MD [place] Protocol: RN Notified of Procedure: yes Informed consent: Risks, benefits, alternatives discussed and patient/architectural representative/guardian agrees and accepts Patient's stated name/ matches armband: Yes Allergies confirmed: yes Consent form signed, dated, timed; matches correct patient, intended procedure and site: Yes Imaging: Pertinent imaging reviewed, correctly oriented and match to patient identifiers Lab/Diag test results: Pertinent lab/diag tests reviewed and match to patient identifiers Supplies, devices and special equipment are available: yes Site/side marked: yes Indications: Sedation purpose: Dislocation reduction Procedure requiring sedation performed by: Physician performing sedation Pre-sedation assessment: Intended level of sedation: Moderate (conscious sedation) NPO ASA classification: class 2 - patient with mild systemic disease Mallampati score: III - soft palate, base of uvula visible Planned medication(s): Ketamine and Propofol Dosing plan: Dose titration Pre-sedation assessment completed and reviewed: Airway WNL, Lungs WNL, Heart WNL and Teeth WNL History of difficult intubation: no Pre-sedation assessment reviewed: 08/28/2024 7:00 PM Immediate pre-procedure details: Reassessment: Patient reassessed immediately prior to procedure Reviewed: Vital signs, relevant labs/tests and current medications Verified: bag valve mask available, emergency equipment available, intubation equipment available, IV patency confirmed, oxygen available and suction available Procedure details (see MAR for exact dosages): Sedation start time: 08/28/2024 6:31 PM Preoxygenation: Nasal cannula Sedation: Ketamine and propofol Intra-procedure monitoring: Blood pressure monitoring, engine monitor, continuous capnometry, continuous pulse oximetry, frequent vital sign checks and frequent LOC assessments Intra-procedure events: hypoxia and respiratory depression Intra-procedure management: Airway repositioning and supplemental oxygen Sedation end time (end of provider face to face time): 08/28/2024 7:35 PM Total sedation time (minutes): 64 Maximal depth of sedation: Moderate Post-procedure details: Post-sedation assessment completed: 08/28/2024 9:13 PM Attendance: Constant attendance by certified staff until patient recovered Recovery: Consistent with the nursing recovery record, the patient is awake or at satisfactory post-sedation level of consciousness and recovery has been unremarkable. Post-sedation assessments completed and reviewed: post-procedure airway patency not reviewed, post-procedure cardiovascular function not reviewed, post-procedure hydration status not reviewed, post-procedure mental status not reviewed, post-procedure nausea and vomiting status not reviewed, pain score not reviewed, post-procedure respiratory function not reviewed and post-procedure temperature not reviewed Patient is stable for discharge or admission: yes Patient tolerance: Tolerated well, no immediate complications us Tawanda Bah MD IN CLINIC/BEDSIDE ORDERA BLES Final Result * XR Ankle Right 3 or More Views (08/28/2024 8:10 PM AVIATION OR[employer]NCE OFFICER) Anatomical Region Laterality Modality Lower Extremities, Ankle Right Compute d Radiography 08/28/2024 8:17 PM [employer]IATION [employer]CE OFFICER Impressions 08/28/2024 8:32 PM [employer]IATION [employer]NCE OFFICER Nonweightbearing radiographs of the ankle are submitted with placement of a cast which limits evaluation of fine osseous detail. Acute displaced right trimalleolar fracture with the fibular component at the level of the syndesmosis, better seen on the splinted radiographs from 4:57 AM. No other definite fracture identified. There is dislocation of the tibiotalar joint, increased from prior however evaluation is limited by nonweightbearing technique. Distal Achilles tendon enthesophyte and small plantar calcaneal bone spur. Dictated by: Vinicius Montilla MD The radiology attending physician has personally reviewed this study, and had reviewed and/or edited this written report and agrees with it. Electronically signed by: Hussain Ibrahim M.D. Narrative 08/28/2024 8:32 PM AVIATION [employer]NCE OFFICER EXAMINATION: XR ANKLE RIGHT 3 OR MORE VIEWS HISTORY: Right ankle fracture status post reduction. COMPARISON: Right ankle radiographs dated 08/28/2024 at 4:57 AM. Procedure Note Hussain Ibrahim MD - 08/28/2024 EXAMINATION: XR ANKLE RIGHT 3 OR MORE VIEWS HISTORY: Right ankle fracture status post reduction. COMPARISON: Right ankle radiographs dated 08/28/2024 at 4:57 AM. IMPRESSION: Nonweightbearing radiographs of the ankle are submitted with placement of a cast which limits evaluation of fine osseous detail. Acute displaced right trimalleolar fracture with the fibular component at the level of the syndesmosis, better seen on the splinted radiographs from 4:57 AM. No other definite fracture identified. There is dislocation of the tibiotalar joint, increased from prior however evaluation is limited by nonweightbearing technique. Distal Achilles tendon enthesophyte and small plantar calcaneal bone spur. Dictated by: Vinicius Montilla MD The radiology attending physician has personally reviewed this study, and had reviewed and/or edited this written report and agrees with it. Electronically signed by: Hussain Ibrahim M.D. us Tawanda Bah MD IMG XR PROCEDURES Final Result * Check Sample (08/28/2024 5:48 PM AVIATION [employer]NCE OFFICER) ABO Rh A Positive [facility] OTHER 08/28/2024 5:48 PM AVIATION [employer]NCE OFFICER 08/28/2024 5:56 PM AVIATION [employer]NCE OFFICER us Notinfile Unknown LAB BLOOD ORDERABLES Final Res ult [facility] [place] [address] BJ * XR Femur Right 2 or More Views (08/28/2024 4:50 PM AVIATION [employer]NCE OFFICER) Anatomical Region Laterality Modality Lower Extremities, Thigh, Femur Right Computed Radiography 08/28/2024 5:08 PM AVIATION [employer]NCE OFFICER Impressions 08/28/2024 5:26 PM AVIATION [employer]DNANCE OFFICER 1. No radiographic evidence of acute fracture in the thoracic spine. 2. No acute fracture in the right femur or knee. Dictated by: No Palma M.D. The radiology attending physician has personally reviewed this study, and had reviewed and/or edited this written report and agrees with it. Electronically signed by: Hussain Ibrahim M.D. Narrative 08/28/2024 5:26 PM AVIATION ORDNANCE OFFICER EXAMINATION: XR KNEE RIGHT 1 OR 2 VIEWS, XR SPINE THORACIC 4 OR MORE VIEWS, XR FEMUR RIGHT 2 OR MORE VIEWS HISTORY: 74-year-old woman status post fall. Right trimalleolar ankle fracture. FINDINGS: Thoracic spine: 3 radiographs of the thoracic spine were obtained, with comparison to same day CT scan, an outside same-day chest radiograph. Vertebral body heights are normal. Intervertebral disc heights are normal. Right femur: No fracture or dislocation of the femur. The right hip joint space is maintained. Right knee: No fracture or dislocation of the right knee. No knee effusion. Mild heterotopic ossification. Procedure Note Hussain Ibrahim MD - 08/28/2024 EXAMINATION: XR KNEE RIGHT 1 OR 2 VIEWS, XR SPINE THORACIC 4 OR MORE VIEWS, XR FEMUR RIGHT 2 OR MORE VIEWS HISTORY: 74-year-old woman status post fall. Right trimalleolar ankle fracture. FINDINGS: Thoracic spine: 3 radiographs of the thoracic spine were obtained, with comparison to same day CT scan, an outside same-day chest radiograph. Vertebral body heights are normal. Intervertebral disc heights are normal. Right femur: No fracture or dislocation of the femur. The right hip joint space is maintained. Right knee: No fracture or dislocation of the right knee. No knee effusion. Mild heterotopic ossification. IMPRESSION: 1. No radiographic evidence of acute fracture in the thoracic spine. 2. No acute fracture in the right femur or knee. Dictated by: No Palma M.D. The radiology attending physician has personally reviewed this study, and had reviewed and/or edited this written report and agrees with it. Electronically signed by: Hussain Ibrahim M.D. Annie Peñaloza Kalen CASE PLANNER IMG XR PROCEDURES Final Result * XR Spine Thoracic 4 Or More Views (08/28/2024 4:50 PM AVIATION ORDNANCE OFFICER) Anatomical Region Laterality Modality Spine N/A Computed Radiogr aphy 08/28/2024 5:08 PM AVIATION ORDNANCE OFFICER Impressions 08/28/2024 5:26 PM AVIATION [employer]DNANCE OFFICER 1. No radiographic evidence of acute fracture in the thoracic spine. 2. No acute fracture in the right femur or knee. Dictated by: No Palma M.D. The radiology attending physician has personally reviewed this study, and had reviewed and/or edited this written report and agrees with it. Electronically signed by: Hussain Ibrahim M.D. Narrative 08/28/2024 5:26 PM AVIATION ORDNANCE OFFICER EXAMINATION: XR KNEE RIGHT 1 OR 2 VIEWS, XR SPINE THORACIC 4 OR MORE VIEWS, XR FEMUR RIGHT 2 OR MORE VIEWS HISTORY: 74-year-old woman status post fall. Right trimalleolar ankle fracture. FINDINGS: Thoracic spine: 3 radiographs of the thoracic spine were obtained, with comparison to same day CT scan, an outside same-day chest radiograph. Vertebral body heights are normal. Intervertebral disc heights are normal. Right femur: No fracture or dislocation of the femur. The right hip joint space is maintained. Right knee: No fracture or dislocation of the right knee. No knee effusion. Mild heterotopic ossification. Procedure Note Hussain Ibrahim MD - 08/28/2024 EXAMINATION: XR KNEE RIGHT 1 OR 2 VIEWS, XR SPINE THORACIC 4 OR MORE VIEWS, XR FEMUR RIGHT 2 OR MORE VIEWS HISTORY: 74-year-old woman status post fall. Right trimalleolar ankle fracture. FINDINGS: Thoracic spine: 3 radiographs of the thoracic spine were obtained, with comparison to same day CT scan, an outside same-day chest radiograph. Vertebral body heights are normal. Intervertebral disc heights are normal. Right femur: No fracture or dislocation of the femur. The right hip joint space is maintained. Right knee: No fracture or dislocation of the right knee. No knee effusion. Mild heterotopic ossification. IMPRESSION: 1. No radiographic evidence of acute fracture in the thoracic spine. 2. No acute fracture in the right femur or knee. Dictated by: No Palma M.D. The radiology attending physician has personally reviewed this study, and had reviewed and/or edited this written report and agrees with it. Electronically signed by: Hussain Ibrahim M.D. Annie Hilles HORTENCIA IMG XR PROCEDURES Final Result * XR Knee Right 1 or 2 Views (08/28/2024 4:49 PM AVIATION ORDNANCE OFFICER) Anatomical Region Laterality Modality Lower Extremities, Knee Right Computed Radiography 08/28/2024 5:08 PM AVIATION ORDNANCE OFFICER Impressions 08/28/2024 5:26 PM AVIATION ORDNANCE OFFICER 1. No radiographic evidence of acute fracture in the thoracic spine. 2. No acute fracture in the right femur or knee. Dictated by: No Palma M.D. The radiology attending physician has personally reviewed this study, and had reviewed and/or edited this written report and agrees with it. Electronically signed by: Hussain Ibrahim M.D. Narrative 08/28/2024 5:26 PM AVIATION ORDNANCE OFFICER EXAMINATION: XR KNEE RIGHT 1 OR 2 VIEWS, XR SPINE THORACIC 4 OR MORE VIEWS, XR FEMUR RIGHT 2 OR MORE VIEWS HISTORY: 74-year-old woman status post fall. Right trimalleolar ankle fracture. FINDINGS: Thoracic spine: 3 radiographs of the thoracic spine were obtained, with comparison to same day CT scan, an outside same-day chest radiograph. Vertebral body heights are normal. Intervertebral disc heights are normal. Right femur: No fracture or dislocation of the femur. The right hip joint space is maintained. Right knee: No fracture or dislocation of the right knee. No knee effusion. Mild heterotopic ossification. Procedure Note Hussain Ibrahim MD - 08/28/2024 EXAMINATION: XR KNEE RIGHT 1 OR 2 VIEWS, XR SPINE THORACIC 4 OR MORE VIEWS, XR FEMUR RIGHT 2 OR MORE VIEWS HISTORY: 74-year-old woman status post fall. Right trimalleolar ankle fracture. FINDINGS: Thoracic spine: 3 radiographs of the thoracic spine were obtained, with comparison to same day CT scan, an outside same-day chest radiograph. Vertebral body heights are normal. Intervertebral disc heights are normal. Right femur: No fracture or dislocation of the femur. The right hip joint space is maintained. Right knee: No fracture or dislocation of the right knee. No knee effusion. Mild heterotopic ossification. IMPRESSION: 1. No radiographic evidence of acute fracture in the thoracic spine. 2. No acute fracture in the right femur or knee. Dictated by: No Palma M.D. The radiology attending physician has personally reviewed this study, and had reviewed and/or edited this written report and agrees with it. Electronically signed by: Hussain Ibrahim M.D. Annie Higuera NP IMG XR PROCEDURES Final Result * XR Pelvis 1 or 2 Views (08/28/2024 3:57 PM AVIATION ORDNANCE OFFICER) Anatomical Region Laterality Modality Body, Pelvis N/A Computed Radiogr aphy 08/28/2024 4:39 PM AVIATION ORDNANCE OFFICER Impressions 08/28/2024 5:25 PM AVIATION ORDNANCE OFFICER 1. Casted right ankle trimalleolar fracture with posterior dislocation of the tibiotalar joint, new from same day CT scan. 2. No acute fracture of the pelvis. Dictated by: No Palma M.D. The radiology attending physician has personally reviewed this study, and had reviewed and/or edited this written report and agrees with it. Electronically signed by: Hussain Ibrahim M.D. Narrative 08/28/2024 5:25 PM AVIATION ORDNANCE OFFICER EXAMINATION: XR PELVIS 1 OR 2 VIEWS, XR TIBIA FIBULA RIGHT2 VIEWS HISTORY: fall FINDINGS: Right tibia-fibula: 4 radiographs of the right tibia and fibula were obtained, with comparison to outside reference radiographs from same day. There is a casted right ankle trimalleolar fracture, with posterior displacement of the tibiotalar joint which is new from the same day CT scan. Pelvis: A single view of the pelvis was obtained, with correlation with same day CT scan. No acute fracture or dislocation of the pelvis. Mild bilateral hip osteoarthritis. Contrast is noted in the bladder. Procedure Note Hussain Ibrahim MD - 08/28/2024 EXAMINATION: XR PELVIS 1 OR 2 VIEWS, XR TIBIA FIBULA RIGHT2 VIEWS HISTORY: fall FINDINGS: Right tibia-fibula: 4 radiographs of the right tibia and fibula were obtained, with comparison to outside reference radiographs from same day. There is a casted right ankle trimalleolar fracture, with posterior displacement of the tibiotalar joint which is new from the same day CT scan. Pelvis: A single view of the pelvis was obtained, with correlation with same day CT scan. No acute fracture or dislocation of the pelvis. Mild bilateral hip osteoarthritis. Contrast is noted in the bladder. IMPRESSION: 1. Casted right ankle trimalleolar fracture with posterior dislocation of the tibiotalar joint, new from same day CT scan. 2. No acute fracture of the pelvis. Dictated by: No Palma M.D. The radiology attending physician has personally reviewed this study, and had reviewed and/or edited this written report and agrees with it. Electronically signed by: Hussain Ibrahim M.D. Andres Colon Jr., MD IMG XR PROCEDURES Kar[place] [facility] Result * XR Tibia Fibula Right 2 Views (08/28/2024 3:57 PM AVIATION ORDNANCE OFFICER) Anatomical Region Laterality Modality Lower Extremities, Lower Leg Right Com puted Radiography 08/28/2024 4:39 PM AVIATION ORDNANCE OFFICER Impressions 08/28/2024 5:25 PM AVIATION ORDNANCE OFFICER 1. Casted right ankle trimalleolar fracture with posterior dislocation of the tibiotalar joint, new from same day CT scan. 2. No acute fracture of the pelvis. Dictated by: No Palma M.D. The radiology attending physician has personally reviewed this study, and had reviewed and/or edited this written report and agrees with it. Electronically signed by: Hussain Ibrahim M.D. Narrative 08/28/2024 5:25 PM AVIATION ORDNANCE OFFICER EXAMINATION: XR PELVIS 1 OR 2 VIEWS, XR TIBIA FIBULA RIGHT2 VIEWS HISTORY: fall FINDINGS: Right tibia-fibula: 4 radiographs of the right tibia and fibula were obtained, with comparison to outside reference radiographs from same day. There is a casted right ankle trimalleolar fracture, with posterior displacement of the tibiotalar joint which is new from the same day CT scan. Pelvis: A single view of the pelvis was obtained, with correlation with same day CT scan. No acute fracture or dislocation of the pelvis. Mild bilateral hip osteoarthritis. Contrast is noted in the bladder. Procedure Note Hussain Ibrahim MD - 08/28/2024 EXAMINATION: XR PELVIS 1 OR 2 VIEWS, XR TIBIA FIBULA RIGHT2 VIEWS HISTORY: fall FINDINGS: Right tibia-fibula: 4 radiographs of the right tibia and fibula were obtained, with comparison to outside reference radiographs from same day. There is a casted right ankle trimalleolar fracture, with posterior displacement of the tibiotalar joint which is new from the same day CT scan. Pelvis: A single view of the pelvis was obtained, with correlation with same day CT scan. No acute fracture or dislocation of the pelvis. Mild bilateral hip osteoarthritis. Contrast is noted in the bladder. IMPRESSION: 1. Casted right ankle trimalleolar fracture with posterior dislocation of the tibiotalar joint, new from same day CT scan. 2. No acute fracture of the pelvis. Dictated by: oN Palma M.D. The radiology attending physician has personally reviewed this study, and had reviewed and/or edited this written report and agrees with it. Electronically signed by: Hussain Ibrahim M.D. Andres Colon Jr., MD IMG XR PROCEDURES Karine l Result * CT Body Outside Consult (08/28/2024 3:42 PM AVIATION ORDNANCE OFFICER) Anatomical Region Laterality Modality Body N/A Computed Tomogra phy 08/28/2024 4:44 PM AVIATION ORDNANCE OFFICER Impressions 08/28/2024 6:14 PM AVIATION ORDNANCE OFFICER 1. Right lower extremity: 3 vessel runoff into the right foot. The distal vessels are poorly opacified and difficult to evaluate in the right foot due to their small size 2. Left lower extremity: Three-vessel runoff into the left foot. 3. Casted, right trimalleolar ankle fracture. The findings, conclusions and recommendations within this report do not replace the initial findings, conclusions and recommendations made at the facility where the study was performed based upon the imaging and clinical condition at that time. Comparison with the prior report and clinical history is necessary. The provided images may or may not represent the [place] point source data set and thus may contain changes that may lower the accuracy of this second-opinion interpretation. Dictated by: No Palma M.D. The radiology attending physician has personally reviewed this study, and had reviewed and/or edited this written report and agrees with it. Electronically signed by: Hussain Ibrahim M.D. Narrative 08/28/2024 6:14 PM AVIATION ORDNANCE OFFICER EXAMINATION: RADIOLOGY CONSULTATION ON OUTSIDE IMAGING STUDY STUDY INITIALLY PERFORMED: 08/28/2024 at [facility]. TYPE OF STUDY: CT ANGIOGRAPHY OF THE ABDOMEN, PELVIS, AND LOWER EXTREMITIES WITH CONTRAST are provided at the time of this interpretation. CONTRAST ROUTE: Contrast was administered via the intravenous route. The protocol was adequate to address the clinical question. The outside final report was not available at the time of this second opinion interpretation. TYPE OF CONSULTATION: Consult on outside imaging study with images submitted through [facility] DATE OF CONSULTATION: 08/28/2024 3:52 PM HISTORY: 74-year-old woman, presenting after a right lower extremity fracture after a fall down the stairs. Noted to have a pulseless right foot at outside hospital. After reduction of the fracture and splint placement, return of circulation was noted. COMPARISON: Comparison with prior CT chest abdomen pelvis dated 11/14/2023, as well as correlation with reference same day radiographs. FINDINGS: VASCULAR FINDINGS: Abdominal Aorta and Branches: Celiac axis: no significant stenosis SMA: no significant stenosis LYNNE: no significant stenosis Right renal vessels: no significant stenosis Left renal vessels: no significant stenosis Infrarenal aorta: no significant stenosis. No aneurysm. Pelvic Vessels: R. Common iliac artery: no significant stenosis R. External iliac artery: no significant stenosis R. Internal iliac artery: Mild atherosclerosis without significant stenosis. L. Common iliac artery: no significant stenosis L. External iliac artery: no significant stenosis L. Internal iliac artery: Mild atherosclerosis without significant stenosis. Right Lower Extremity: R. Common femoral artery: no significant stenosis R. Profunda femoris artery: no significant stenosis R. Superficial femoral artery: no significant stenosis R. Popliteal artery: Mild atherosclerosis without significant stenosis. R. Anterior tibial artery: no significant stenosis R. Tibioperoneal trunk: no significant stenosis R. Posterior tibial artery: no significant stenosis There is three-vessel runoff into the right foot. Left Lower Extremity: L. Common femoral artery: no significant stenosis L. Profunda femoris artery: no significant stenosis L. Superficial femoral artery: no significant stenosis L. Popliteal artery: Mild atherosclerosis without significant stenosis. L. Anterior tibial artery: no significant stenosis L. Tibioperoneal trunk: no significant stenosis L. Posterior tibial artery: no significant stenosis There is three-vessel runoff in the left foot. NON-VASCULAR FINDINGS: There is mild dependent atelectasis in the visualized lung bases, without consolidation, pleural effusion, or pneumothorax. The heart is mildly enlarged, with biatrial enlargement. There are coronary artery calcifications. Intrathoracic aorta is incompletely visualized. No suspicious liver lesions noted on this single phase examination. There are multiple radiodense stones in the gallbladder, without gallbladder wall thickening or pericholecystic fluid. No biliary ductal dilation. The pancreas is normal. The adrenal glands are normal. The spleen is normal. Small right renal cyst, too small to characterize. The kidneys enhance symmetrically, without hydronephrosis or nephrolithiasis. The bladder is distended. Status post hysterectomy. No suspicious adnexal lesion. The appendix is visualized in its entirety and is normal. Colonic diverticulosis without evidence of diverticulitis. An endoscopic clip is noted at the hepatic flexure colon. No bowel wall thickening noted. No small bowel dilation. Tiny hiatal hernia. There is trace perisplenic ascites, however the volume has decreased from the October 2023 CT scan There is a minimally displaced fracture of the right distal fibula, extending to the distal tibiofibular joint, a minimally displaced fracture of the posterior tibia, and a minimally displaced fracture of the medial tibia. Diffuse soft tissue swelling of the right foot. No other acute fracture noted. Procedure Note Hussain Ibrahim MD - 08/28/2024 EXAMINATION: RADIOLOGY CONSULTATION ON OUTSIDE IMAGING STUDY STUDY INITIALLY PERFORMED: 08/28/2024 at [facility]. TYPE OF STUDY: CT ANGIOGRAPHY OF THE ABDOMEN, PELVIS, AND LOWER EXTREMITIES WITH CONTRAST are provided at the time of this interpretation. CONTRAST ROUTE: Contrast was administered via the intravenous route. The protocol was adequate to address the clinical question. The outside final report was not available at the time of this second opinion interpretation. TYPE OF CONSULTATION: Consult on outside imaging study with images submitted through Outside Image Sharing Service DATE OF CONSULTATION: 08/28/2024 3:52 PM HISTORY: 74-year-old woman, presenting after a right lower extremity fracture after a fall down the stairs. Noted to have a pulseless right foot at outside hospital. After reduction of the fracture and splint placement, return of circulation was noted. COMPARISON: Comparison with prior CT chest abdomen pelvis dated 11/14/2023, as well as correlation with reference same day radiographs. FINDINGS: VASCULAR FINDINGS: Abdominal Aorta and Branches: Celiac axis: no significant stenosis SMA: no significant stenosis LYNNE: no significant stenosis Right renal vessels: no significant stenosis Left renal vessels: no significant stenosis Infrarenal aorta: no significant stenosis. No aneurysm. Pelvic Vessels: R. Common iliac artery: no significant stenosis R. External iliac artery: no significant stenosis R. Internal iliac artery: Mild atherosclerosis without significant stenosis. L. Common iliac artery: no significant stenosis L. External iliac artery: no significant stenosis L. Internal iliac artery: Mild atherosclerosis without significant stenosis. Right Lower Extremity: R. Common femoral artery: no significant stenosis R. Profunda femoris artery: no significant stenosis R. Superficial femoral artery: no significant stenosis R. Popliteal artery: Mild atherosclerosis without significant stenosis. R. Anterior tibial artery: no significant stenosis R. Tibioperoneal trunk: no significant stenosis R. Posterior tibial artery: no significant stenosis There is three-vessel runoff into the right foot. Left Lower Extremity: L. Common femoral artery: no significant stenosis L. Profunda femoris artery: no significant stenosis L. Superficial femoral artery: no significant stenosis L. Popliteal artery: Mild atherosclerosis without significant stenosis. L. Anterior tibial artery: no significant stenosis L. Tibioperoneal trunk: no significant stenosis L. Posterior tibial artery: no significant stenosis There is three-vessel runoff in the left foot. NON-VASCULAR FINDINGS: There is mild dependent atelectasis in the visualized lung bases, without consolidation, pleural effusion, or pneumothorax. The heart is mildly enlarged, with biatrial enlargement. There are coronary artery calcifications. Intrathoracic aorta is incompletely visualized. No suspicious liver lesions noted on this single phase examination. There are multiple radiodense stones in the gallbladder, without gallbladder wall thickening or pericholecystic fluid. No biliary ductal dilation. The pancreas is normal. The adrenal glands are normal. The spleen is normal. Small right renal cyst, too small to characterize. The kidneys enhance symmetrically, without hydronephrosis or nephrolithiasis. The bladder is distended. Status post hysterectomy. No suspicious adnexal lesion. The appendix is visualized in its entirety and is normal. Colonic diverticulosis without evidence of diverticulitis. An endoscopic clip is noted at the hepatic flexure colon. No bowel wall thickening noted. No small bowel dilation. Tiny hiatal hernia. There is trace perisplenic ascites, however the volume has decreased from the October 2023 CT scan There is a minimally displaced fracture of the right distal fibula, extending to the distal tibiofibular joint, a minimally displaced fracture of the posterior tibia, and a minimally displaced fracture of the medial tibia. Diffuse soft tissue swelling of the right foot. No other acute fracture noted. IMPRESSION: 1. Right lower extremity: 3 vessel runoff into the right foot. The distal vessels are poorly opacified and difficult to evaluate in the right foot due to their small size 2. Left lower extremity: Three-vessel runoff into the left foot. 3. Casted, right trimalleolar ankle fracture. The findings, conclusions and recommendations within this report do not replace the initial findings, conclusions and recommendations made at the facility where the study was performed based upon the imaging and clinical condition at that time. Comparison with the prior report and clinical history is necessary. The provided images may or may not represent the [place] point source data set and thus may contain changes that may lower the accuracy of this second-opinion interpretation. Dictated by: No Palma M.D. The radiology attending physician has personally reviewed this study, and had reviewed and/or edited this written report and agrees with it. Electronically signed by: Hussain Ibrahim M.D. Andres Colon Jr., MD IMG CT PROCEDURES Karine l Result * XR Outside Reference (08/28/2024 3:40 PM AVIATION ORDNANCE OFFICER) Impressions [facility] - 08/28/2024 3:40 PM AVIATION ORDNANCE OFFICER These images are for Reference purposes only and have not been reviewed by [facility] Radiology. There will be no report generated by a [facility] Radiologist. Narrative [facility] - 08/28/2024 3:40 PM AVIATION ORDNANCE OFFICER EXAMINATION: Images For Reference Purposes Only Andres Colon Jr., MD IMG XR PROCEDURES Karine l Result Performing Organization Address [facility] de Phone Number [email or web address] * XR Outside Reference (08/28/2024 3:39 PM AVIATION ORDNANCE OFFICER) Impressions [facility] - 08/28/2024 3:39 PM AVIATION ORDNANCE OFFICER These images are for Reference purposes only and have not been reviewed by [facility] Radiology. There will be no report generated by a [facility] Radiologist. Narrative [facility] - 08/28/2024 3:39 PM AVIATION ORDNANCE OFFICER EXAMINATION: Images For Reference Purposes Only Andres Colon Jr., MD IMG XR PROCEDURES Karine l Result Performing Organization Address [facility] de Phone Number [facility] * XR Outside Reference (08/28/2024 3:30 PM AVIATION ORDNANCE OFFICER) Impressions [facility] - 08/28/2024 3:30 PM AVIATION ORDNANCE OFFICER These images are for Reference purposes only and have not been reviewed by [facility] Radiology. There will be no report generated by a [facility] Radiologist. Narrative [facility] - 08/28/2024 3:30 PM AVIATION ORDNANCE OFFICER EXAMINATION: Images For Reference Purposes Only Andres Colon Jr., MD IMG XR PROCEDURES Karine l Result Performing Organization Address [facility] de Phone Number [email or web address] * Type and screen (08/28/2024 3:29 PM AVIATION ORDNANCE OFFICER) ABO Rh A Positive Vivi, indirect Negative [facility] Blood 08/28/2024 3:29 PM AVIATION ORDNANCE OFFICER 08/28/2024 3:56 PM AVIATION ORDNANCE OFFICER Narrative [facility] - 08/28/2024 5:01 PM AVIATION ORDNANCE OFFICER Has the patient had Daratumumab or Isatuximab in the past 6 months?->Unknown us Andres Colon Jr., MD LAB BLOOD BANK TEST OR DERABLES Final Result [facility] [place] [address] * POCT glucose (08/28/2024 3:23 PM AVIATION ORDNANCE OFFICER) Glucose, POC 118 70 - 199 mg/dL Blood 08/28/2024 3:23 PM AVIATION ORDNANCE OFFICER 08/28/2024 3:23 PM AVIATION ORDNANCE OFFICER us Notinfile Unknown LAB POCT ORDERABLES - DEVICE F inal Result Performing Organization Address [facility] de Phone Number [facility] [place] [address] * Colonoscopy (07/22/2024 10:32 AM CDT) Anatomical Region Laterality Modality Other Narrative Procedure Note Piero Nieves MD - 07/22/2024 10:32 AM CDT [facility] Endoscopy Lab Patient Name: Rylee Snell Procedure Date: 07/22/2024 10:32AM Date of : 1950 Admit Type: Outpatient Age: 73 Gender: Female Note Status: Finalized Attending MD: Piero Nieves M.D. Procedure Date: 07/22/2024 Procedure: Colonoscopy Indications: Screening for colorectal malignant neoplasm Providers: Piero Nieves M.D., KEVIN Deutsch (Anesthesia Staff), Rimma Medina RN, Marya Mcknight, Pad Hand Referring MD: Aaron Camargo M.D. Medicines: Monitored Anesthesia Care Complications: No immediate complications. Estimated blood loss: Minimal. Estimated Blood Loss: Estimated blood loss was minimal. Procedure: Pre-Anesthesia Assessment: - Prior to the procedure, a History and Physicalwas performed, and patient medications and allergieswere reviewed. The patient's tolerance of previous anesthesia was also reviewed. The risks andbenefits of the procedure and the sedation options and risks were discussed with the patient. All questions were answered, and informed consent was obtained. Prior Anticoagulants: The patient has taken noanticoagulant or antiplatelet agents. ASA Grade Assessment: III -A patient with severe systemic disease. Afterreviewing the risks and benefits, the patient was deemed in satisfactory condition to undergo the procedure. - The risks and benefits of the procedure and the sedation options and risks were discussed with the patient. All questions were answered and informed consent was obtained. After I obtained informed consent, the scope was passed under direct vision. Throughout theprocedure, the patient's blood pressure, pulse, and oxygen saturations were monitored continuously. The scopewas passed under direct vision. The Colonoscope was introduced through the anus and advanced to the the cecum, identified by appendiceal orifice andileocecal valve. The colonoscopy was performed without difficulty. The patient tolerated the procedurewell. The quality of the bowel preparation was evaluated using the BBPS ([place] Bowel Preparation Scale)with scores of: Right Colon = 3, Transverse Colon = 3and Left Colon = 3 (entire mucosa seen well with no residual staining, small fragments of stool oropaque liquid). The total BBPS score equals 9. The qualityof the bowel preparation was excellent. The ileocecal valve, appendiceal orifice, and rectum were photographed. The bowel preparation used wasGoLYTELY via split dose instruction. Findings: The perianal and digital rectal examinations were normal. A 15 mm polyp was found in the hepatic flexure. The polyp was flat. Preparations were made for mucosal resection. Demarcation of thelesion was performed to clearly identify boundaries of the lesion. Eleviewwas injected to raise the lesion. Snare mucosal resection was performed. Resection and retrieval were complete. To prevent bleeding aftermucosal resection, three hemostatic clips were successfully placed (MR conditional). There was no bleeding at the end of the procedure. Four sessile polyps were found in the transverse colon. The polypswere 2 to 3 mm in size. These polyps were removed with a cold biopsyforceps. Resection and retrieval were complete. External hemorrhoids were found during retroflexion. Impression: 1) One 15 mm polyp at the hepatic flexure, removed with mucosal resection. Resected and retrieved.Clips (MR conditional) were placed. 2) Four 2 to 3 mm polyps in the transverse colon, removed with a cold biopsy forceps. Resected and retrieved. 3) External hemorrhoids. Recommendation: - Discharge patient to home (ambulatory). - Patient has a contact number available for emergencies. The signs and symptoms of potential delayed complications were discussed with thepatient. Return to normal activities tomorrow. Written discharge instructions were provided to thepatient. - Resume previous diet. - Continue present medications. - Await pathology results. - Repeat colonoscopy in 3 years for surveillance. - No aspirin, ibuprofen, naproxen, or other non-steroidal anti-inflammatory drugs for 2 weeks after polyp removal. Procedure Code(s): --- Professional --- 47213, Colonoscopy, flexible; with endoscopicmucosal resection 27169, 59, Colonoscopy, flexible; with biopsy,single or multiple Diagnosis Code(s): --- Professional --- D12.3, Benign neoplasm of transverse colon (hepatic flexure or splenic flexure) Z12.11, Encounter for screening for malignantneoplasm of colon K64.4, Residual hemorrhoidal skin tags CPT copyright 2020 [employer]. All rights reserved. The codes documented in this report are preliminary and upon compression molding machine setter reviewmay be revised to meet current compliance requirements. Pireo Nieves M.D. 07/22/2024 11:20:31 AM Number of Addenda: 0 Note Initiated On: 07/22/2024 10:32 AM Piero Nieves MD ENDOSCOPY PROCEDURES Edit ed Result - Final * DIABETES EYE EXAM (04/02/2024 2:30 PM CDT) SCRIBED DIABETIC DILATED EYE EXAM Comment:No Diabetic Retinopa thy Historical Provider HEALTH MAINTENANCE Final Result * Albumin Creatinine Ratio, Urine (03/05/2024 11:18 AM CDT) Albumin Ur 41.4 mg/L Comment: Interpretive Data No reference range established. Current interpretive data was last revised 2019. Creatinine Ur 438.0 mg/dL [facility] Comment: Interpretive Data No reference range established. Current interpretive data was last revised 2019. Albumin Creatinine Ratio, Ur 9 1 - 29 mg/g [facility] Urine 03/05/2024 11:1 8 AM CDT 03/05/2024 2:07 PM CDT Aaron Camargo MD LAB URINE ORDERABLES Final Result [facility] [address] Department [place] [address] * (ABNORMAL) Hemoglobin A1c (03/05/2024 11:18 AM CDT) Hgb A1C 6.7(H) 4.0 - 5.6 % Estimated Average Glucose 146 mg/dL [facility] Comment: The ADA recommends reporting an estimated Average Glucose (eAG) with all Hemoglobin A1c results using the equation derived from a study of 507 normal and diabetic adults. Minority populations were underrepresented and children were not included. (Diabetes Care 31:9477-2053, 2008). The eAG is not equivalent to a fasting glucose. Blood 03/05/2024 11:1 8 AM CDT 03/05/2024 2:07 PM CDT us Aaron Camargo MD LAB BLOOD ORDERABLES Final Result Performing Organization Address City/State/ZIP [place] Phone Number RAD[facility] [address] [facility] Department [place] [address] from Last 3 Months or Most Recently Relevant to Health Maintenance Insurance [employer] Directives For more information, please contact: [phone] * Full Code (Latest Code Status on File) Date Activated Date Inactivated Comments 10/28/2024 6:50 PM 11/05/2024 7:53 PM * Full Code Date Activated Date Inactivated Comments 08/29/2024 3:16 AM 09/02/2024 11:09 PM * Full Code Date Activated Date Inactivated Comments 11/14/2023 10:48 PM 11/17/2023 6:34 PM Care Teams Structural Drafter Relationship Specialty Start Date End Date Aaron Camargo MD [address] [facility] [address] [place] [address] PCP - General Family Medicine 02/05/24 Geneva Stacy, RN [address] [place] [address] [address] [place] [address] Data Base Administrator 09/03/24 Florentino Mcgowan MD [address] [facility] [address] [place] [address] Consulting Physician Orthopedic Surgery 10/08/24 Juan Jose Caldwell MD [address] [place] [address] Consulting Physician Infectious Diseases 11/02/24
--- OUTSIDE RECORDS SUMMARY | 2024-11-10 17:37 | XMS_ITS | Clinical Summary ---
Author Organization [facility] Address [address] [place] [phone] Care Team Providers Care Commodity Supervisor Name Role Phone Aaron Camargo MD Primary Care Provider Geneva Stacy RN Unavailable Florentino Mcgowan MD Unavailable Juan Jose Caldwell MD Unavailable Allergies No known active allergies Medications bisoprolol [...] mL into catheter every 12 (twelve) hours 025 Active sodium chloride 0.9% injection Administer 10-20 [...] mg total) into a venous catheter daily 025 2024 Active traMADoL (ULTRAM) 50 mg tablet [...] 2 (two) times a day 70 tablet 025 2024 Active methocarbamoL (ROBAXIN) 500 mg tablet [...] as needed for muscle spasms 45 tablet 2024 Discontinued(T herapy completed) gabapentin (NEURONTIN) 100 mg capsuleIndicati ons:Neuropathic Pain Take 2 capsules (200 mg total) by mouth 3 (three) times a day 180 capsule 2024 Discontinued(T herapy completed) senna (SENOKOT) 8.6 mg tabletIndicatio ns:constipation Take 1 tablet by mouth 2 (two) times a day 40 tablet 2024 Discontinued(S top Taking at Discharge) aspirin 81 mg enteric coated tabletIndicatio ns:prevention of thrombosis Take 1 tablet (81 mg total) by mouth 2 (two) times a day for 14 days 28 tablet 2024 Discontinued(T herapy completed) traMADoL (ULTRAM) 50 mg tabletIndicatio ns:Pain Take 1 tablet (50 mg total) by mouth every 6 (six) hours as needed for pain 20 tablet 024 2024 Discontinued(R eorder) apixaban (ELIQUIS) 5 mg tabletIndicatio ns:Venous Thrombosis Take 1 tablet (5 mg total) by mouth 2 (two) times a day rx# [id number] per TONI Melo for Dr Camargo on [...] 10/28/2024 Assessment & Plan (11/03/2024 1:32 PM POST PARTUM NURSE): Rylee York is a 74 y.o. female [...] by ID to place PICC line for detention IV antibiotics - ID is formally signing off but will continue to monitor patient peripherally while inpatient. Recommending to treat right ankle infection with retained hardware for 6 weeks (10/29/24-12/10/24) with daptomcyin and metronidazole with possible early PO switch at ID follow up. Please see sign off note from 11/03/24 for complete recommendations. Acute pain 08/30/2024 Assessment & Plan (08/30/2024 2:23 PM POST PARTUM NURSE): 08/30 oxycodone adjusted to tramadol per pt request Trimalleolar fracture of right ankle 08/29/2024 Assessment & Plan (09/01/2024 12:37 PM POST PARTUM NURSE): - Ortho consult - OR 08/29 Ex-Fix [...] 08/29/2024 Assessment & Plan (09/02/2024 12:15 PM POST PARTUM NURSE): 08/29: new admission overnight, OR with ortho 09/01: OR with ortho for ORIF of R ankle, PT/OT, ADD 09/02 09/02: Patient is medically stable for discharge, SW/CM updated. Discharge pending nothing, patient discharging home Treatment note [x] HLD (hyperlipidemia) 08/29/2024 Assessment & Plan (08/29/2024 9:47 AM POST PARTUM NURSE): Atorvastatin 10mg continued Goiter, nodular 08/29/2024 Assessment & Plan (09/02/2024 12:20 PM POST PARTUM NURSE): #Large multinodular goiter - Incidental finding on C spine CT - Was previously seen on CT in Oct 2023, lost to follow up - Patient is aware of this incidental finding (discussed on 08/29) - TSH wnl - Thyroid ultrasound ordered while inpatient, pt needs outpatient US Fall, initial encounter 08/28/2024 Assessment & Plan (08/29/2024 9:02 AM POST PARTUM NURSE): - Mechanical fall down ~13 steps - HCT, C spine CT Encounter for Medicare annual wellness exam 07/26 Assessment & Plan (08/18/2024 9:38 AM POST PARTUM NURSE): A(n) yearly Medicare Annual Wellness Visit has [...] 03/05/2024 Assessment & Plan (09/02/2024 12:14 PM POST PARTUM NURSE): - Cr 0.89 on admission 08/30 Cr [...] 05/03/2011 Assessment & Plan (09/02/2024 12:15 PM POST PARTUM NURSE): - hypertensive emergency on admission, hydralazine given - PO amlodipine 5mg and Losartan 25mg continued (home meds) - 08/30 SBP 140-150 Norvasc incr to 10 - PO Lasix 20 every other day (home med) - Patient instructed to follow up with PCP for medication adjustment. Type 2 diabetes mellitus with hyperlipidemia 06/2011 Assessment & Plan (08/29/2024 9:07 AM POST PARTUM NURSE): - SSI - DM diet Type 2 diabetes mellitus without complication (C MS/HCC) 05/03/2011 Encounters Date Type Department Care Team Description 11/10/2024 12:00 PM POST PARTUM NURSE Home Care Visit [facility] Home Health [facility] [address] [place] [address] Jeanette Decker RN SN HOME VISIT 11/10/[address] [facility] Infectious Diseases [address] [place] [address] [address] [place] [address] Donta Mercedes Jr., RN 11/10/2024 Orders Only [facility] Home Care Services [address] [place] [address] Enoch Guan, [facility] 11/07/[address] [facility] Infectious Diseases [address] [place] [phone] Donta Mercedes Jr., JAY 11/06/2024 12:00 PM POST PARTUM NURSE Home Care Visit [address] [phone] Sergio Santa RN SN OASIS RESUMPTION OF CARE 11/06/[address] [facility] Infectious Diseases [address] [place] [phone] Oneida Sullivan CMA 11/06/2024 Plan of Care Documentation [address] [phone] 11/06/2024 Telephone [facility] Medical Group Primary Care at [address] [phone] Aaron Camargo MD Appointment Request 11/05/2024 Orders Only [facility] Home Care Services [address] [place] [phone] Enoch Guan, [facility] 11/04/2024 9:02 PM POST PARTUM NURSE - 11/04/2024 11:59 PM POST PARTUM NURSE Hospital Encounter [facility] [address] [place] [address] 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 Infectious Diseases [address] [place] [phone] Katy Coates NP 10/31/2024 1:52 PM POST PARTUM NURSE Anesthesia Event [facility] Operating Room [address] [place] [phone] Pio Bauer MD PhD Hetal Escobar NP 10/31/2024 1:30 PM POST PARTUM NURSE - 10/31/2024 3:30 PM POST PARTUM NURSE Surgery [facility] Operating Room [address] [place] [phone] Florentino Mcgowan MD IRRIGATION AND DEBRIDEMENT - LEG, SKIN GRAFT, WOUND VAC PLACEMENT 10/29/2024 4:18 PM POST PARTUM NURSE Anesthesia Event [facility] Operating Room [address] [place] [phone] Sofya Nesbitt MD PhD Alejandra Serna SPOOL MAKER 10/29/2024 2:46 PM POST PARTUM NURSE - 10/29/2024 4:46 PM POST PARTUM NURSE Surgery [facility] Operating Room [address] [place] [phone] Florentino Mcgowan MD IRRIGATION AND DEBRIDEMENT - LEG 10/28/2024 5:53 PM POST PARTUM NURSE - 11/05/2024 3:53 PM POST PARTUM NURSE Hospital Encounter [address] [phone] Brigido Maxwell MD Obey, Mitchel Robert, MD Closed trimalleolar fracture of right ankle with routine healing, subsequent encounter (Primary Dx); Surgical site infection [T81.49XA] Discharge Disposition: Discharge to home, home health skilled care 10/28/2024 3:30 PM POST PARTUM NURSE - 10/28/2024 11:59 PM POST PARTUM NURSE Hospital Encounter [facility] [address] [place] [address] Closed trimalleolar fracture of right ankle with routine healing, subsequent encounter Discharge Disposition: Discharge to home or self care 10/28/2024 3:30 PM POST PARTUM NURSE Office Visit [facility] Orthopaedic Surgery [address] [facility] 6th [place] [address] [place] [phone] Florentino Mcgowan MD Closed trimalleolar fracture of right ankle with routine healing, subsequent encounter (Primary Dx) 10/28/2024 Home Care Visit [address] [phone] Apple Diaz, PT PT OASIS TRANSFER W/OUT DC 10/28/2024 Orders Only [facility] Medical Group Primary Care at [address] [phone] ProviderDivya MD 10/22/[address] [facility] Orthopaedic Surgery [facility] [address]th [place] [address] [place] [address] Lyric Mcmahon MS 10/13/2024 Telephone [facility] Medical [facility] Primary Care at [address] [phone] Lorie Gary MA 10/09/2024 Telephone [facility] Medical [facility] Primary Care at [address] [phone] Aaron Camargo MD Medical Question/Miscellaneo us 10/09/2024 Plan of Care Documentation [address] [phone] 10/07/2024 4:00 PM POST PARTUM NURSE Office Visit [facility] Primary Care at [address] [phone] Aaron Camargo MD Closed trimalleolar fracture of right ankle, sequela (Primary Dx) 10/06/2024 Telephone [facility] Medical [facility] Primary Care at [address] [phone] Aaron Camargo MD Case Management- Medication 10/02/2024 1:00 PM POST PARTUM NURSE Home Care Visit [address] [phone] Apple Diaz, PT PT REASSESSMENT 09/30/2024 1:30 PM POST PARTUM NURSE Home Care Visit [address] [place] [phone] Sarah Rivera OT OT OASIS START OF CARE 09/30/2024 Home Care Visit [facility] [address] [place] [phone] Sarah Rivera OT OT DISCIPLINE DISCHARGE 09/26/2024 12:30 PM POST PARTUM NURSE Home Care Visit [address] [phone] Mitzi Hernandez, LIFE INSURANCE SALES AGENT PT HOME VISIT 09/23/2024 Home Care Visit [address] [phone] Sarah Rivera, OT OT COVERAGE CHG OASIS DC 09/22/2024 1:15 PM POST PARTUM NURSE Clinical Support [facility] Orthopaedic Surgery [facility] [address]th [place] [address] [place] [address] Makayla Decker MD Closed trimalleolar fracture of right ankle, initial encounter (Primary Dx) 09/16/2024 12:00 PM POST PARTUM NURSE Home Care Visit [facility] [address] [place] [phone] Alejandrina Antonio LCSW EXCEL VBA DEVELOPER INITIAL EVAL 09/16/2024 12:00 PM POST PARTUM NURSE Home Care Visit [facility] [address] [place] [phone] Sarah Rivera, OT OT HOME VISIT 09/16/2024 Home Care Visit [address] [phone] Alejandrina Antonio LCSW EXCEL VBA DEVELOPER DISCIPLINE DISCHARGE 09/15/2024 11:15 AM POST PARTUM NURSE Home Care Visit [address] [phone] Mitzi Hernandez, LIFE INSURANCE SALES AGENT PT HOME VISIT 09/15/2024 Home Care Visit [address] [address] Alejandrina Antonio, INSURANCE LICENSING SUPERVISOR CASE COMMUNICATION 09/12/2024 Telephone [facility] [address] [place] [address] Duglas Gusman, JAY 09/09/2024 Home Care Visit [address] [phone] Apple Diaz, PT CARE CONFERENCE 09/08/2024 12:30 PM POST PARTUM NURSE Home Care Visit [address] [phone] Sarah Rivera, OT OT INITIAL EVALUATION 09/08/2024 Home Care Visit [address] [phone] Audrey Loza, JAY NURSE MED RECON FOR THERAPY 09/08/2024 Telephone [facility] Medical [facility] Primary Care at [address] [phone] Lorie Gary MA 09/07/2024 Home Care Visit [address] [phone] Audrey Loza, JAY NURSE MED RECON FOR THERAPY 09/05/2024 10:30 AM POST PARTUM NURSE Home Care Visit [address] [phone] Apple Diaz, PT PT OASIS START OF CARE 09/05/2024 Plan of Care Documentation [address] [phone] 09/04/2024 Telephone [facility] Medical [facility] Primary Care at [address] [phone] Aaron Camargo MD Case Management- Medication; Appointment Request 09/01/2024 7:30 AM POST PARTUM NURSE - 09/01/2024 10:45 AM POST PARTUM NURSE Surgery [facility] Operating Room [address] [place] [address] Florentino Mcgowan MD REMOVAL EXTERNAL FIXATION DEVICE LOWER EXTREMITY 09/01/2024 7:25 AM POST PARTUM NURSE Anesthesia Event [facility] Operating Room [address] [place] [address] Selene Muñoz MD Huang, Shun, MD PhD 08/29/2024 10:50 AM POST PARTUM NURSE - 08/29/2024 12:25 PM POST PARTUM NURSE Surgery [facility] Operating Room [address] [place] [address] Harjinder Obrien MD APPLICATION EXTERNAL FIXATION DEVICE LOWER EXTREMITY 08/29/2024 10:35 AM POST PARTUM NURSE Anesthesia Event [facility] Operating Room [address] [place] [address] Selene Muñoz MD Lee, Woo Kyung, MD 08/28/2024 2:31 PM POST PARTUM NURSE - 09/02/2024 7:04 PM POST PARTUM NURSE Hospital Encounter [address] [phone] Tawanda Bah MD Fredrickson, Caleb James, MD Kipfer, Lu Ocampo, DO Fall, initial encounter (Primary Dx); Tibia/fibula fracture, right, closed, initial encounter; Closed trimalleolar fracture of right ankle with routine healing, subsequent encounter; Closed trimalleolar fracture of right ankle, initial encounter [S82.851A]; Goiter, nodular Discharge Disposition: Discharge to home or self care 08/18/2024 9:30 AM POST PARTUM NURSE Office Visit [facility] Medical Group Primary Care at [address] [phone] Aaron Camargo MD Encounter for Medicare annual wellness exam (Primary Dx); Hypertension associated with diabetes (HCC); Stage 3b chronic kidney disease (HCC); Type 2 diabetes mellitus with hyperlipidemia (HCC) from Last 3 Months Immunizations Immunization Administration Dates Next Due Influenza, Trivalent, High D ose, Split, Preservative Free, Intramuscular 11/05/2024 Influenza, Unspecified 08/18/2024(Deferr ed: Patient Refused),09/24/2023(Deferred: Patient Refused) Pneumococcal Conjugate Pcv20 02/05/2024 Surgical History Surgery Date Site/Laterality Comments HYSTERECTOMY CHOLECYSTECTOMY COLONOSCOPY 05/16/2024 COLONOSCOPY 09/24/2003 - 09/23/2004 SECTION 2 TOTAL COLONOSCOPY 07/22/2024 Medical History Medical History Date Comments Hypertension Diabetes mellitus (HCC) CHF (congestive heart failure) (CMS/HCC) (HCC) Myocardial infarction (HCC) Migraines Family History Medical History Relation Name Comments No Known Problems Brother No Known Problems Father Heart disease Mother Stroke Mother Relation Name Status Comments Brother Alive Father Mother Social History Tobacco Use Types Packs/Day Years [...] materials from doctor or pharmacy Sometimes 11/06/2024 [facility] Utilities Answer Date Recorded In the past 12 months has e [employer], [employer], oil, or water [employer] threatened to shut off services in your [...] often do you attend chur ch or adventist services? More than 4 times per year 11/03/2024 Do you belong to any clubs o r organizations such as yazdanism groups, unions, fraternal or athletic groups, or [...] place to sleep or slept in a mcc (including now)? No 11/15/2023 Housing Stability Vital Sign Answer Lee e Recorded In the last 12 months, was t here a time when you were not able to pay the mortgage or rent on time? No 11/03/2024 In the past 12 months, how m any times have you moved where you were living? 0 11/03/2024 At any time in the past 12 m [facility], were you homeless or living in a mcc (including now)? No 11/03/2024 Personal Safety Answer Date Recorded Have you ever been in or are you currently in a harmful physical or emotional relationship or is someone making you feel afraid or unsafe? Denies 10/31/2024 Comments No Sex and Gender Information Value Date Recorded Sex Assigned at Not on file Legal Sex Female 1:23 PM POST PARTUM NURSE Gender Identity Not on file Sexual Orientation Not on file Obstetrics History Last Filed Vital Signs Vital Sign Reading Time Taken Comments Blood Pressure 148/74 11/10/2024 12:07 PM POST PARTUM NURSE Pulse 82 11/10/2024 12:07 PM POST PARTUM NURSE Temperature 36.4 C (97.6 F) 11/10/2024 12:07 PM POST PARTUM NURSE Respiratory Rate 18 11/10/2024 12:07 PM POST PARTUM NURSE Oxygen Saturation 100% 11/10/2024 12:07 PM POST PARTUM NURSE Inhaled Oxygen Concentration - - Weight 78 kg (172 lb) 10/30/2024 10:32 AM POST PARTUM NURSE Height 157.5 cm (5' 2 ) 10/28/2024 6:24 PM POST PARTUM NURSE Body Mass Index 31.46 10/28/2024 6:24 PM POST PARTUM NURSE Plan of Treatment Health Maintenance Due Date Last Done Comments Breast Cancer Screening-Mammogram 1950 Osteoporosis Screening-Bone Density Scan 1950 DTaP/Tdap/Td Vaccine (1 - Tdap) 1963 Hemoglobin A1C 09/04/2024 03/05/2024, 11/14/2023 Zoster Vaccine (1 of 2) 02/04/2025 Post poned from 2002 (Insurance / Financial) Albumin Creatinine Ratio, Urine 03/05/2025 03/05/2024 Foot Exam 03/05/2025 03/05/2024, 03/05/2024 Dilated Eye Exam 04/02/2025 04/02/2024 Well Visit 65+ 08/18/2025 08/18/2024 Lipid Panel 08/28/2025 08/28/2024, 11/17/2023 Depression Screening 10/28/2025 10/28/2024, 08/18/2024, 02/05/2024, Additional history exists Fall Risk Assessment 11/05/2025 11/05/2024, 08/18/2024, 02/05/2024 eGFR 11/05/2025 11/05/2024, 10/25, 11/03/2024, Additional history exists Colon Cancer Screening-Colonoscopy 07/22/2034 07/22/2024, 05/16/2024 Pneumococcal vaccine 65+ Completed 02/05/2024 Hepatitis B Screening Completed 11/04/2024 Hepatitis C Screening Completed 11/04/2024, 024 Influenza Vaccine Completed 11/05/2024 Goals Goal Patient Goal Type Associated Problems Recent Progress Patient-Stated? Author MUKUL General Goal - Patient / caregiver verbalizes lifestyle changes necessary to meet self-care needs and executes self-care activities to utmost capability ACO Care Management On track(2024 11:17 AM POST PARTUM NURSE) Geneva Cannon RN Note: Problem: At Risk for Self [...] ACO Care Management On track(2024 11:17 AM POST PARTUM NURSE) Geneva Cannon RN Note: Problem: Potential for [...] medication regimen. Medical Devices Implanted Type Area Radiologic Technology Program Director Device Identifier Shelf Expiration Date Model / Serial / Lot Synthes Schanz 5mm 170mm 50mm Blunt Trocar Point Xlong Screw External 294.55 - [id number] Implanted:Qty: 2 on 08/29/2024 by Harjinder Obrien MD at [facility] Right: Ankle Synthes 294.55 / / Synthes Steinmann 5mm 5.5mm 275mm Central Thread Pin Fixation Large 293.890 - [id number] Implanted:Qty: 1 on 08/29/2024 by Harjinder Obrien MD at [facility] Right: Ankle Synthes 293.890 / / [employer] Screw Bone Cortical Threaded 2.7x80mm Ti Ar-35603-56 - [id number] Implanted:Qty: 2 on 09/01/2024 by Florentino Mcgowan MD at [facility] [employer] AR-14925-2 0 / / [employer] Plate Bone T Shape 6 Hole 2 Hole Head 2.7mm Ti [id number]-23 - [id number] Implanted:Qty: 1 on 09/01/2024 by Florentino Mcgowan MD at [facility] [employer] AR-[id number]- 26 / / [employer] Screw Bone Cortical Threaded 2.7x42mm Ti Ar-09874-76 - [id number] Implanted:Qty: 1 on 09/01/2024 by Florentino Mcgowan MD at [facility] [employer] AR-19988-4 2 / / [employer] Screw Bone Cortical Threaded 2.7x34mm Ti Ar-52112-99 - [id number] Implanted:Qty: 1 on 09/01/2024 by Florentino Mcgowan MD at [facility] [employer] AR-[id number] 4 / / [employer] Screw Bone Cortical Threaded 2.7x36mm Ti Ar-71076-04 - [id number] Implanted:Qty: 1 on 09/01/2024 by Florentino Mcgowan MD at [facility] [employer] AR-67291-6 6 / / [employer] Screw Bone Threaded 2.7x40mm Ti [id number] - [id number] Implanted:Qty: 1 on 09/01/2024 by Florentino Mcgowan MD at [facility] [employer] AR-[id number]- 40 / / [employer] Low Profile Screws 3.5mm 48mm Modular Self Drill Solid Ankle Ar-8835-48 - [id number] Implanted:Qty: 1 on 09/01/2024 by Florentino Mcgowan MD at [facility] [employer] AR-8835-48 / / [employer] Screw Bone Cortical Solid Full Thread Non Locking 3.5x52mm Ss Ar-8835-52 - [id number] Implanted:Qty: 1 on 09/01/2024 by Florentino Mcgowan MD at [facility] [employer] AR-8835-52 / / 3.5 Cortical Screw Implanted:Qty: 1 on 09/01/2024 by Florentino Mcgowan MD at [facility] [employer] AR-8835-54 / / Description:inactive [employer] Screw Bone Cortical Threaded 2.7x20mm Ti Ar-56966-51 - [id number] Implanted:Qty: 1 on 09/01/2024 by Florentino Mcgowan MD at [facility] [employer] AR-60820-1 0 / / [employer] Screw Bone Cortical Threaded 2.7x22mm Ti Ar-61110-27 - [id number] Implanted:Qty: 1 on 09/01/2024 by Florentino Mcgowan MD at [facility] [employer] AR-51800-8 2 / / [employer] Plate Bone Locking 6 Hole Right Distal Fibula Internalbrace Ss Si-[id number]-21 - [id number] Implanted:Qty: 1 on 09/01/2024 by Florentino Mcgowan MD at [facility] [employer] AR-[id number]- 06 / / [employer] Low Profile Screws 3.5mm 12mm Modular Solid Hexalobe Self Tap Ar-8835-12 - [id number] Implanted:Qty: 2 on 09/01/2024 by Florentino Mcgowan MD at [facility] [employer] AR-8835-12 / / [employer] Low Profile Screws 2.7mm 16mm Modular Solid Hexalobe Lock Ankle Ar-8827l-16 - [id number] Implanted:Qty: 4 on 09/01/2024 by Florentino Mcgowan MD at [facility] [employer] AR-8827L-1 6 / / [employer] Low Profile Screws 2.7mm 14mm Modular Solid Hexalobe Lock Ankle Ar-8827l-14 - [id number] Implanted:Qty: 1 on 09/01/2024 by Florentino Mcgowan MD at [facility] [employer] AR-8827L-1 4 / / [employer] Low Profile Screws 3.5mm 14mm Modular Solid Hexalobe Lock Ankle Ar-8835l-14 - [id number] Implanted:Qty: 1 on 09/01/2024 by Florentino Mcgowan MD at [facility] [employer] AR-8835L-1 4 / / [employer] Restrata Wound Matrix 6obp8yn Synthetic Sheet Rwm1-2x2 - [id number] Implanted:Qty: 1 on 10/31/2024 by Florentino Mcgowan MD at [facility] [employer] RWM-1 2X2 / / Restrata Minimatrix Implanted:Qty: 1 on 10/31/2024 by Florentino Mcgowan MD at [facility] [employer] 05/02/2026 [id number] / / [id number] [employer] Restrata Mini Matrix 250mg Micronized Powder Rmini-250 - [id number] Implanted:Qty: 1 on 10/31/2024 by Florentino Mcgowan MD at [facility] [employer] RMINI-250 / / [id number] Procedures Procedure Name Priority Date/Time Associated Diagnosis Comments POCT GLUCOSE DEVICE Routine 11/05/2024 12:21 PM POST PARTUM NURSE POCT GLUCOSE DEVICE Routine 11/05/2024 7 :58 AM POST PARTUM NURSE EGFR Routine 11/05/2024 12:17 AM POST PARTUM NURSE DIFFERENTIAL AUTO Routine 11/05/2024 12:17 AM POST PARTUM NURSE CBC WITH AUTO DIFFERENTIAL Routine 11/05/2024 12:17 AM POST PARTUM NURSE BASIC METABOLIC PANEL Routine 11/05/2024 12:17 AM POST PARTUM NURSE HEPATITIS B SURFACE ANTIGEN Routine 11/04/2024 9:02 PM POST PARTUM NURSE HEPATITIS C ANTIBODY Routine 11/04/2024 9:02 PM POST PARTUM NURSE HIV 1/2 ANTIBODY PLUS P24 ANTIGEN Routine 11/04/2024 9:02 PM POST PARTUM NURSE POCT GLUCOSE DEVICE Routine 11/04/2024 7 :20 PM POST PARTUM NURSE URINALYSIS AND REFLEX TO MICROSCOPIC AND CULTURE STAT 11/04/2024 6:06 PM POST PARTUM NURSE POCT GLUCOSE DEVICE Routine 11/04/2024 5 :12 PM POST PARTUM NURSE POCT GLUCOSE DEVICE Routine 11/04/2024 12:00 PM POST PARTUM NURSE POCT GLUCOSE DEVICE Routine 11/04/2024 8 :00 AM POST PARTUM NURSE EGFR Routine 11/03/2024 8:19 PM POST PARTUM NURSE DIFFERENTIAL AUTO Routine 11/03/2024 8:1 9 PM POST PARTUM NURSE CBC WITH AUTO DIFFERENTIAL Routine 11/03/2024 8:19 PM POST PARTUM NURSE BASIC METABOLIC PANEL Routine 11/03/2024 8:19 PM POST PARTUM NURSE POCT GLUCOSE DEVICE Routine 11/03/2024 7 :37 PM POST PARTUM NURSE POCT GLUCOSE DEVICE Routine 11/03/2024 5 :14 PM POST PARTUM NURSE CREATINE KINASE (CK), TOTAL Timed 11/03/2024 3:31 PM POST PARTUM NURSE POCT GLUCOSE DEVICE Routine 11/03/2024 11:43 AM POST PARTUM NURSE CREATINE KINASE (CK), TOTAL Routine 11/03/2024 10:10 AM POST PARTUM NURSE EGFR Routine 11/03/2024 10:10 AM POST PARTUM NURSE DIFFERENTIAL AUTO Routine 11/03/2024 10:10 AM POST PARTUM NURSE CBC WITH AUTO DIFFERENTIAL Routine 11/03/2024 10:10 AM POST PARTUM NURSE BASIC METABOLIC PANEL Routine 11/03/2024 10:10 AM POST PARTUM NURSE POCT GLUCOSE DEVICE Routine 11/03/2024 8 :07 AM POST PARTUM NURSE TYPE AND SCREEN Timed 11/02/2024 10:31 PM POST PARTUM NURSE POCT GLUCOSE DEVICE Routine 11/02/2024 7 :46 PM POST PARTUM NURSE POCT GLUCOSE DEVICE Routine 11/02/2024 6 :00 PM POST PARTUM NURSE POCT GLUCOSE DEVICE Routine 11/02/2024 1 :06 PM POST PARTUM NURSE POCT GLUCOSE DEVICE Routine 11/02/2024 8 :23 AM POST PARTUM NURSE VANCOMYCIN LEVEL TROUGH Timed 11/01/2024 9:40 PM POST PARTUM NURSE POCT GLUCOSE DEVICE Routine 11/01/2024 7 :46 PM POST PARTUM NURSE POCT GLUCOSE DEVICE Routine 11/01/2024 4 :49 PM POST PARTUM NURSE POCT GLUCOSE DEVICE Routine 11/01/2024 12:01 PM POST PARTUM NURSE POCT GLUCOSE DEVICE Routine 11/01/2024 8 :18 AM POST PARTUM NURSE VANCOMYCIN LEVEL TROUGH Timed 10/31/2024 8:30 PM POST PARTUM NURSE POCT GLUCOSE DEVICE Routine 10/31/2024 7 :52 PM POST PARTUM NURSE POCT GLUCOSE DEVICE Routine 10/31/2024 3 :19 PM POST PARTUM NURSE MD AN PROCEDURE PLACEHOLDER Routine 10/31/2024 2:47 PM POST PARTUM NURSE MD AN PROCEDURE PLACEHOLDER Routine 10/31/2024 2:39 PM POST PARTUM NURSE MD AN ELECTIVE ENDOTRACHEAL AIRWAY Routine 10/31/2024 2:39 PM POST PARTUM NURSE POCT GLUCOSE DEVICE Routine 10/31/2024 2 :33 PM POST PARTUM NURSE MD AN PROCEDURE PLACEHOLDER Routine 10/31/2024 2:23 PM POST PARTUM NURSE MD AN PROCEDURE PLACEHOLDER Routine 10/31/2024 2:20 PM POST PARTUM NURSE IRRIGATION AND DEBRIDEMENT - LEG 10/31/2024 1:52 PM POST PARTUM NURSE Surgical site infection POCT GLUCOSE DEVICE Routine 10/31/2024 11:49 AM POST PARTUM NURSE POCT GLUCOSE DEVICE Routine 10/31/2024 8 :15 AM POST PARTUM NURSE CBC WITHOUT DIFFERENTIAL Timed 10/31/2024 5:40 AM POST PARTUM NURSE POCT GLUCOSE DEVICE Routine 10/31/2024 3 :57 AM POST PARTUM NURSE POCT GLUCOSE DEVICE Routine 10/31/2024 12:12 AM POST PARTUM NURSE EGFR Timed 10/30/2024 9:21 PM POST PARTUM NURSE TYPE AND SCREEN Timed 10/30/2024 9:21 PM POST PARTUM NURSE TROPONIN I HIGH-SENSITIVITY 6-HOUR Timed 10/30/2024 9:21 PM POST PARTUM NURSE BASIC METABOLIC PANEL Timed 10/30/2024 9:21 PM POST PARTUM NURSE POCT GLUCOSE DEVICE Routine 10/30/2024 8 :04 PM POST PARTUM NURSE TROPONIN I HIGH-SENSITIVITY 2-HOUR Timed 10/30/2024 6:17 PM POST PARTUM NURSE POCT GLUCOSE DEVICE Routine 10/30/2024 5 :07 PM POST PARTUM NURSE EGFR STAT 10/30/2024 3:52 PM POST PARTUM NURSE MAGNESIUM STAT 10/30/2024 3:52 PM POST PARTUM NURSE COMPREHENSIVE METABOLIC PANEL STAT 10/30/2024 3:52 PM POST PARTUM NURSE CBC WITHOUT DIFFERENTIAL STAT 10/30/2024 3:52 PM POST PARTUM NURSE D-DIMER, QUANTITATIVE STAT 10/30/2024 3:52 PM POST PARTUM NURSE TROPONIN I HIGH-SENSITIVITY SERIES (BASELINE, 2HR, 4HR, 6HR) STAT 10/30/2024 3:52 PM POST PARTUM NURSE POCT GLUCOSE DEVICE Routine 10/30/2024 11:14 AM POST PARTUM NURSE POCT GLUCOSE DEVICE Routine 10/30/2024 7 :30 AM POST PARTUM NURSE EGFR Timed 10/29/2024 10:42 PM POST PARTUM NURSE BASIC METABOLIC PANEL Timed 10/29/2024 10:42 PM POST PARTUM NURSE CBC WITHOUT DIFFERENTIAL Timed 10/29/2024 10:42 PM POST PARTUM NURSE POCT GLUCOSE DEVICE Routine 10/29/2024 8 :35 PM POST PARTUM NURSE POCT GLUCOSE DEVICE Routine 10/29/2024 6 :14 PM POST PARTUM NURSE FL FLUOROSCOPY < 1 HOUR IP Routine 10/29/2024 5:34 PM POST PARTUM NURSE MYCOBACTERIOLOGY AFB CULTURE AND ACID-FAST STAIN Routine 10/29/2024 5:10 PM POST PARTUM NURSE MYCOLOGY (FUNGAL) CULTURE Routine 10/29/2024 5:10 PM POST PARTUM NURSE TISSUE AEROBIC AND ANAEROBIC CULTURE AND GRAM STAIN Routine 10/29/2024 5:10 PM POST PARTUM NURSE MYCOBACTERIOLOGY AFB CULTURE AND ACID-FAST STAIN Routine 10/29/2024 5:10 PM POST PARTUM NURSE MYCOLOGY (FUNGAL) CULTURE Routine 10/29/2024 5:10 PM POST PARTUM NURSE TISSUE AEROBIC AND ANAEROBIC CULTURE AND GRAM STAIN Routine 10/29/2024 5:10 PM POST PARTUM NURSE MYCOBACTERIOLOGY AFB CULTURE AND ACID-FAST STAIN Routine 10/29/2024 5:02 PM POST PARTUM NURSE MYCOLOGY (FUNGAL) CULTURE Routine 10/29/2024 5:02 PM POST PARTUM NURSE TISSUE AEROBIC AND ANAEROBIC CULTURE AND GRAM STAIN Routine 10/29/2024 5:02 PM POST PARTUM NURSE POCT GLUCOSE DEVICE Routine 10/29/2024 5 :00 PM POST PARTUM NURSE PERIPHERAL LINE Routine 10/29/2024 4:49 PM POST PARTUM NURSE ANESTHESIA INTUBATION Routine 10/29/2024 4:49 PM POST PARTUM NURSE PLACEMENT WOUND VACUUM 4:18 PM POST PARTUM NURSE Closed trimalleolar fracture of right ankle with routine healing, subsequent encounter REMOVAL HARDWARE ANKLE 4:18 PM POST PARTUM NURSE Closed trimalleolar fracture of right ankle with routine healing, subsequent encounter IRRIGATION AND DEBRIDEMENT - LEG 10/29/2024 4:18 PM POST PARTUM NURSE Closed trimalleolar fracture of right ankle with routine healing, subsequent encounter POCT GLUCOSE DEVICE Routine 10/29/2024 11:21 AM POST PARTUM NURSE POCT GLUCOSE DEVICE Routine 10/29/2024 7 :37 AM POST PARTUM NURSE URINALYSIS AND REFLEX TO MICROSCOPIC AND CULTURE Routine 10/29/2024 4:45 AM POST PARTUM NURSE CRP (ACUTE PHASE) Routine 10/28/2024 10:05 PM POST PARTUM NURSE EGFR Routine 10/28/2024 10:05 PM POST PARTUM NURSE TYPE AND SCREEN Timed 10/28/2024 10:05 PM POST PARTUM NURSE APTT Routine 10/28/2024 10:05 PM POST PARTUM NURSE PROTIME-INR Routine 10/28/2024 10:05 PM POST PARTUM NURSE CBC WITHOUT DIFFERENTIAL Routine 10/28/2024 10:05 PM POST PARTUM NURSE BASIC METABOLIC PANEL Routine 10/28/2024 10:05 PM POST PARTUM NURSE ERYTHROCYTE SEDIMENTATION RATE Routine 10/28/2024 7:55 PM POST PARTUM NURSE EGFR Routine 10/28/2024 7:55 PM POST PARTUM NURSE BASIC METABOLIC PANEL Routine 10/28/2024 7:55 PM POST PARTUM NURSE CBC WITHOUT DIFFERENTIAL Routine 10/28/2024 7:55 PM POST PARTUM NURSE POCT GLUCOSE DEVICE Routine 10/28/2024 7 :24 PM POST PARTUM NURSE XR ANKLE RIGHT 3 OR MORE VIEWS Schedule Routine, Read Routine (OP Routine) 10/28/2024 4:06 PM POST PARTUM NURSE Closed trimalleolar fracture of right ankle with routine healing, subsequent encounter XR ANKLE RIGHT 3 OR MORE VIEWS Schedule Routine, Read Routine (OP Routine) 10/26/2024 4:22 PM POST PARTUM NURSE US THYROID IP Routine 09/02/2024 1:54 PM POST PARTUM NURSE POCT GLUCOSE DEVICE Routine 09/02/2024 11:56 AM POST PARTUM NURSE POCT GLUCOSE DEVICE Routine 09/02/2024 7 :54 AM POST PARTUM NURSE EGFR Routine 09/01/2024 11:19 PM POST PARTUM NURSE MAGNESIUM Routine 09/01/2024 11:19 PM POST PARTUM NURSE CBC WITHOUT DIFFERENTIAL Routine 09/01/2024 11:19 PM POST PARTUM NURSE BASIC METABOLIC PANEL Routine 09/01/2024 11:19 PM POST PARTUM NURSE POCT GLUCOSE DEVICE Routine 09/01/2024 8 :27 PM POST PARTUM NURSE POCT GLUCOSE DEVICE Routine 09/01/2024 5 :07 PM POST PARTUM NURSE POCT GLUCOSE DEVICE Routine 09/01/2024 4 :49 PM POST PARTUM NURSE MD AN PROCEDURE PLACEHOLDER Routine 09/01/2024 1:53 PM POST PARTUM NURSE MD AN PROCEDURE PLACEHOLDER Routine 09/01/2024 1:53 PM POST PARTUM NURSE POCT GLUCOSE DEVICE Routine 09/01/2024 10:49 AM POST PARTUM NURSE FL FLUOROSCOPY < 1 HOUR IP Routine 09/01/2024 10:03 AM POST PARTUM NURSE POCT GLUCOSE DEVICE Routine 09/01/2024 8 :52 AM POST PARTUM NURSE MD AN PROCEDURE PLACEHOLDER Routine 09/01/2024 8:13 AM POST PARTUM NURSE MD AN ELECTIVE ENDOTRACHEAL AIRWAY Routine 09/01/2024 8:13 AM POST PARTUM NURSE OPEN REDUCTION INTERNAL FIXATION - ANKLE 09/01/2024 7:25 AM POST PARTUM NURSE Closed trimalleolar fracture of right ankle with routine healing, subsequent encounter REMOVAL EXTERNAL FIXATION DEVICE LOWER EXTREMITY 09/01/2024 7:25 AM POST PARTUM NURSE Closed trimalleolar fracture of right ankle with routine healing, subsequent encounter POCT GLUCOSE DEVICE Routine 09/01/2024 6 :[address] ANKLE RIGHT WO CONTRAST ED Urgent/IP Urgent 09/01/2024 5:25 AM POST PARTUM NURSE EGFR Routine 08/31/2024 11:09 PM POST PARTUM NURSE TYPE AND SCREEN Timed 08/31/2024 11:09 PM POST PARTUM NURSE PROTIME-INR Routine 08/31/2024 11:09 PM POST PARTUM NURSE MAGNESIUM Routine 08/31/2024 11:09 PM POST PARTUM NURSE CBC WITHOUT DIFFERENTIAL Routine 08/31/2024 11:09 PM POST PARTUM NURSE BASIC METABOLIC PANEL Routine 08/31/2024 11:09 PM POST PARTUM NURSE POCT GLUCOSE DEVICE Routine 08/31/2024 9 :27 PM POST PARTUM NURSE POCT GLUCOSE DEVICE Routine 08/31/2024 5 :03 PM POST PARTUM NURSE POCT GLUCOSE DEVICE Routine 08/31/2024 11:49 AM POST PARTUM NURSE POCT GLUCOSE DEVICE Routine 08/31/2024 8 :18 AM POST PARTUM NURSE POCT GLUCOSE DEVICE Routine 08/31/2024 6 :27 AM POST PARTUM NURSE EGFR Routine 08/30/2024 9:01 PM POST PARTUM NURSE MAGNESIUM Routine 08/30/2024 9:01 PM POST PARTUM NURSE CBC WITHOUT DIFFERENTIAL Routine 08/30/2024 9:01 PM POST PARTUM NURSE BASIC METABOLIC PANEL Routine 08/30/2024 9:01 PM POST PARTUM NURSE POCT GLUCOSE DEVICE Routine 08/30/2024 5 :47 PM POST PARTUM NURSE POCT GLUCOSE DEVICE Routine 08/30/2024 3 :50 PM POST PARTUM NURSE POCT GLUCOSE DEVICE Routine 08/30/2024 11:31 AM POST PARTUM NURSE POCT GLUCOSE DEVICE Routine 08/30/2024 8 :21 AM POST PARTUM NURSE ED CRITICAL CARE Routine 08/30/2024 7:38 AM POST PARTUM NURSE EGFR Routine 08/29/2024 10:44 PM POST PARTUM NURSE THYROID FUNCTION CASCADE Routine 08/29/2024 10:44 PM POST PARTUM NURSE MAGNESIUM Routine 08/29/2024 10:44 PM POST PARTUM NURSE CBC WITHOUT DIFFERENTIAL Routine 08/29/2024 10:44 PM POST PARTUM NURSE BASIC METABOLIC PANEL Routine 08/29/2024 10:44 PM POST PARTUM NURSE POCT GLUCOSE DEVICE Routine 08/29/2024 7 :29 PM POST PARTUM NURSE POCT GLUCOSE DEVICE Routine 08/29/2024 5 :21 PM POST PARTUM NURSE POCT GLUCOSE DEVICE Routine 08/29/2024 5 :08 PM POST PARTUM NURSE POCT GLUCOSE DEVICE Routine 08/29/2024 11:49 AM POST PARTUM NURSE FL FLUOROSCOPY < 1 HOUR IP Routine 08/29/2024 11:39 AM POST PARTUM NURSE POCT GLUCOSE DEVICE Routine 08/29/2024 11:09 AM POST PARTUM NURSE MD AN PROCEDURE PLACEHOLDER Routine 08/29/2024 11:01 AM POST PARTUM NURSE MD AN ELECTIVE ENDOTRACHEAL AIRWAY Routine 08/29/2024 11:01 AM POST PARTUM NURSE APPLICATION EXTERNAL FIXATION DEVICE LOWER EXTREMITY 08/29/2024 10:40 AM POST PARTUM NURSE Fall, initial encounter POCT GLUCOSE DEVICE Routine 08/29/2024 10:31 AM POST PARTUM NURSE MD AN PROCEDURE PLACEHOLDER Routine 08/29/2024 10:02 AM POST PARTUM NURSE MD AN PROCEDURE PLACEHOLDER Routine 08/29/2024 10:[address] HEAD AND CERVICAL SPINE WO CONTRAST ED Urgent/IP Urgent 08/29/2024 8:58 AM POST PARTUM NURSE POCT GLUCOSE DEVICE Routine 08/29/2024 8 :33 AM POST PARTUM NURSE POCT GLUCOSE DEVICE Routine 08/29/2024 3 :57 AM POST PARTUM NURSE ECG 12-LEAD Routine 08/28/2024 10:00 PM POST PARTUM NURSE LIPID PANEL Routine 08/28/2024 9:43 PM POST PARTUM NURSE EGFR Routine 08/28/2024 9:43 PM POST PARTUM NURSE DIFFERENTIAL AUTO Routine 08/28/2024 9:4 3 PM POST PARTUM NURSE CBC WITH AUTO DIFFERENTIAL Routine 08/28/2024 9:43 PM POST PARTUM NURSE COMPREHENSIVE METABOLIC PANEL Routine 08/28/2024 9:43 PM POST PARTUM NURSE PROTIME-INR Routine 08/28/2024 9:43 PM POST PARTUM NURSE APTT STAT 08/28/2024 9:43 PM POST PARTUM NURSE ED MODERATE SEDATION Routine 08/28/2024 9:11 PM POST PARTUM NURSE XR ANKLE RIGHT 3 OR MORE VIEWS ED 08/28/2024 8:10 PM POST PARTUM NURSE B CHECK SAMPLE STAT 08/28/2024 5:48 PM POST PARTUM NURSE XR FEMUR RIGHT 2 OR MORE VIEWS ED 08/28/2024 4:50 PM POST PARTUM NURSE XR SPINE THORACIC 4 OR MORE VIEWS ED 08/28/2024 4:50 PM POST PARTUM NURSE XR KNEE RIGHT 1 OR 2 VIEWS ED 08/28/2024 4:49 PM POST PARTUM NURSE XR PELVIS 1 OR 2 VIEWS ED 3:57 PM POST PARTUM NURSE XR TIBIA FIBULA RIGHT2 VIEWS ED Urgent/IP Urgent 08/28/2024 3:[address] BODY OUTSIDE CONSULT Routine 08/28/2024 3:42 PM POST PARTUM NURSE XR TRANSFER OF OUTSIDE FILMS Routine 08/28/2024 3:40 PM POST PARTUM NURSE XR TRANSFER OF OUTSIDE FILMS Routine 08/28/2024 3:39 PM POST PARTUM NURSE XR TRANSFER OF OUTSIDE FILMS Routine 08/28/2024 3:30 PM POST PARTUM NURSE TYPE AND SCREEN STAT 08/28/2024 3:29 PM POST PARTUM NURSE POCT GLUCOSE DEVICE Routine 08/28/2024 3 :23 PM POST PARTUM NURSE COLONOSCOPY 07/22/2024 10:32 AM CDT HM DIABETES EYE EXAM Routine 04/02/2024 2:30 PM CDT HEMOGLOBIN A1C Routine 03/05/2024 11:18 AM CDT Hypertension associated with diabetes (HCC) ALBUMIN CREATININE RATIO, URINE Routine 03/05/2024 11:18 AM CDT Hypertension associated with diabetes (HCC) from Last 3 Months or Most Recently Relevant to Health Maintenance Results * POCT glucose (11/05/2024 12:21 PM POST PARTUM NURSE) Glucose, POC 82 70 - 199 mg/dL Blood 11/05/2024 12:2 1 PM POST PARTUM NURSE 11/05/2024 12:21 PM POST PARTUM NURSE us Florentino Mcgowan MD LAB POCT ORDERABLES - DEV ICE Final Result [facility] Department [place] [address] * POCT glucose (11/05/2024 7:58 AM POST PARTUM NURSE) [facility] Glucose, POC 82 70 - 199 mg/dL Blood 11/05/2024 7:58 AM POST PARTUM NURSE 11/05/2024 7:58 AM POST PARTUM NURSE us Florentino Mcgowan MD LAB POCT ORDERABLES - DEV ICE Final Result Performing Organization Address City/[facility]/ZIP Co de Phone Number RDA[facility] Department [place] [address] * (ABNORMAL) eGFR (11/05/2024 12:17 AM POST PARTUM NURSE) [facility] eGFR 56(L) >=60 mL/min/1. 73 m2 Comment: [...] reviewed 2021. Blood 11/05/2024 12:1 7 AM POST PARTUM NURSE 11/05/2024 1:17 AM POST PARTUM NURSE us Ashley Ramsey NP LAB BLOOD ORDERABLES Karine l Result Performing Organization Address City/[facility]/ZIP Co de Phone Number RAD[facility] Department [place] [address] * Differential, auto (11/05/2024 12:17 AM POST PARTUM NURSE) Neutrophil abs 3.8 1.5 - 6.5 K/cumm Imm gran abs 0.0 0.0 - 0.1 K/cumm [facility] Lymphocyte abs 1.6 0.8 - 3.3 K/cumm [facility] Monocyte abs 0.3 0.2 - 0.8 K/cumm [facility] Eosinophil abs 0.1 0.0 - 0.5 K/cumm [facility] Basophil abs 0.0 0.0 - 0.1 K/cumm [facility] Neutrophil pct 64.8 % [facility] Comment: Interpretive Data Percent cell count reference ranges are not reported, since discordance with absolute values may lead to misinterpretation of CBC data. Current Interpretive Data was last revised on 2018. Imm gran pct 0.7 % [facility] Comment: Interpretive Data Percent cell count reference ranges are not reported, since discordance with absolute values may lead to misinterpretation of CBC data. Current Interpretive Data was last revised on 2018. Lymphocyte pct 27.4 % [facility] Comment: Interpretive Data Percent cell count reference ranges are not reported, since discordance with absolute values may lead to misinterpretation of CBC data. Current Interpretive Data was last revised on 2018. Monocyte pct 5.0 % [facility] Comment: Interpretive Data Percent cell count reference ranges are not reported, since discordance with absolute values may lead to misinterpretation of CBC data. Current Interpretive Data was last revised on 2018. Eosinophil pct 1.9 % [facility] Comment: Interpretive Data Percent cell count reference ranges are not reported, since discordance with absolute values may lead to misinterpretation of CBC data. Current Interpretive Data was last revised on 2018. Basophil pct 0.2 % [facility] Comment: Interpretive Data Percent cell count reference ranges are not reported, since discordance with absolute values may lead to misinterpretation of CBC data. Current Interpretive Data was last revised on 2018. Blood 11/05/2024 12:1 7 AM POST PARTUM NURSE 11/05/2024 1:17 AM POST PARTUM NURSE Ashley Emi Roxy [employer]PERVIS[employer] D[employer] DEPARTMENT LAB BLOOD ORDERABLES Karine l Result Performing Organization Address [facility] de Phone Number [facility] Department [place] [address] * (ABNORMAL) CBC with auto differential (11/05/2024 12:17 AM POST PARTUM NURSE) [facility] WBC 5.8 3.8 - 9.9 K/cumm Hgb 9.4(L) 11.9 - 15.5 g/dL [facility] Hct 29.8(L) 35.6 - 45.5 % [facility] Plt 284 150 - 400 K/cumm [facility] MPV 10.9 9.1 - 12.3 fL [facility] RBC 3.41(L) 3.90 - 5.20 M/cumm [facility] MCV 87.4 81.3 - 96.4 fL [facility] MCH 27.6 27.1 - 33.3 pg [facility] MCHC 31.5(L) 32.3 - 35.7 g/dL [facility] RDW CV 17.2(H) 11.1 - 14.9 % [facility] RDW SD 54.3(H) 35.7 - 48.1 fL [facility] NRBC abs 0.00 0.00 - 0.01 K/cumm [facility] Blood 11/05/2024 12:1 7 AM POST PARTUM NURSE 11/05/2024 1:17 AM POST PARTUM NURSE Ashley Ramsey NP LAB BLOOD ORDERABLES Karine l Result Performing Organization Address [facility] Co de Phone Number [facility] Department [place] [address] * Basic metabolic panel (11/05/2024 12:17 AM POST PARTUM NURSE) [facility] Sodium 145 135 - 145 mmol/L Potassium, pl 3.8 3.3 - 4.9 mmol/L [facility] Chloride 109 97 - 110 mmol/L [facility] CO2 26 22 - 32 mmol/L [facility] Anion gap 10 2 - 15 mmol/L [facility] BUN 19 6 - 25 mg/dL [facility] Creatinine 1.05 0.60 - 1.10 mg/dL [facility] Glucose 99 70 - 199 mg/dL [facility] Comment: Interpretive Data Fasting glucose [...] 2022. Calcium 9.2 8.5 - 10.3 mg/dL [facility] Blood 11/05/2024 12:1 7 AM POST PARTUM NURSE 11/05/2024 1:17 AM POST PARTUM NURSE us Ashley Ramsey [employer]PER[employer] DE[employer] LAB BLOOD ORDERABLES Kraine l Result [facility] [place] [employer] [place] [address] * HIV 1/2 Antibody plus p24 Antigen Blood (11/04/2024 9:02 PM POST PARTUM NURSE) HIV 1/2 ab + p24 ag Nonreactive Nonreactive Comment:Nonreactive for HIV- 1 antigen and HIV-1/HIV-2 antibodies. No laboratory evidence of HIV infection. If acute HIV infection is suspected, consider testing for HIV-1 RNA. Current interpretive data was last revised on 22. Blood 11/04/2024 9:02 PM POST PARTUM NURSE 11/04/2024 9:15 PM POST PARTUM NURSE us Notinfile Unknown LAB MICROBIOLOGY - GENERAL ORD ERABLES Final Result [facility] [place] [employer] [place] [address] * Hepatitis C antibody Blood (11/04/2024 9:02 PM POST PARTUM NURSE) Pathologist [facility] Hep C Ab Nonreactive Nonreactive Comment:Antibodies to HCV no t detected. Does NOT exclude the possibility of recent exposure to HCV. Current interpretive data was last revised on 22 Blood 11/04/2024 9:02 PM POST PARTUM NURSE 11/04/2024 9:15 PM POST PARTUM NURSE us Notinfile Unknown LAB MICROBIOLOGY - GENERAL ORD ERABLES Final Result Performing Organization Address [facility] Co de Phone Number [facility] [place] [employer] [place] [address] * Hepatitis B Surface Antigen Blood (11/04/2024 9:02 PM POST PARTUM NURSE) Pathologist [facility] HepBsAg Nonreactive Nonreactive Blood 11/04/2024 9:02 PM POST PARTUM NURSE 11/04/2024 9:15 PM POST PARTUM NURSE us Notinfile Unknown LAB MICROBIOLOGY - GENERAL ORD ERABLES Final Result Performing Organization Address [facility] Co de Phone Number [facility] [place] [employer] [place] [address] * POCT glucose (11/04/2024 7:20 PM POST PARTUM NURSE) Pathologist [facility] Glucose, POC 120 70 - 199 mg/dL Blood 11/04/2024 7:20 PM POST PARTUM NURSE 11/04/2024 7:20 PM POST PARTUM NURSE us Florentino Mcgowan MD LAB POCT ORDERABLES - DEV ICE Final Result Performing Organization Address [facility] Co de Phone Number [facility] [place] [employer] [place] [address] * (ABNORMAL) Urinalysis reflex to microscopic and culture Urine (11/04/2024 6:06 PM POST PARTUM NURSE) Color, ur Yellow Yellow Clarity, ur Clear Clear [facility] Specific gravity, ur 1.026 1.003 - 1.[address] [facility] pH, urine 5.5 [facility] Comment: Interpretive Data U rine pH is affected by diet, medications, systemic acid-base disturbances, and renal tubular function. pH may affect urinary stone formation. For example, urine pH below 6.0 may help reduce the tendency for calcium phosphate stones and pH greater than 6.0 may reduce the tendency for uric acid stone formation. Source: [facility] Current Interpretive Data was last revised on 2017 Protein, ur ql Trace Negative [facility] Glucose, ur ql Negative Negative [facility] Ketones, ur 1+(A) Negative [facility] Bilirubin, ur Negative Negative [facility] Blood, ur Negative Negative [facility] Urobilinogen, ur <2.0 <2.0 mg/dL [facility] Nitrite, ur Negative Negative [facility] Leukocyte esterase, ur Negative Negative [facility] UA reflex comment Reflex conditions for microscopic UA and culture not met. [facility] Urine 11/04/2024 6:06 PM POST PARTUM NURSE 11/04/2024 6:28 PM POST PARTUM NURSE us Ashley Ramsey NP LAB MICROBIOLOGY - GENERA L ORDERABLES Final Result Performing Organization Address [facility] Co de Phone Number [facility] Department [place] [address] * POCT glucose (11/04/2024 5:12 PM POST PARTUM NURSE) Glucose, POC 86 70 - 199 mg/dL Blood 11/04/2024 5:12 PM POST PARTUM NURSE 11/04/2024 5:12 PM POST PARTUM NURSE us Florentino Mcgowan MD LAB POCT ORDERABLES - DEV ICE Final Result Performing Organization Address [facility] Co de Phone Number [facility] Department [place] [address] * POCT glucose (11/04/2024 12:00 PM POST PARTUM NURSE) Glucose, POC 117 70 - 199 mg/dL Blood 11/04/2024 12:0 0 PM POST PARTUM NURSE 11/04/2024 12:00 PM POST PARTUM NURSE Florentino Mcgowan MD LAB POCT ORDERABLES - DEV ICE Final Result Performing Organization Address [facility] Co de Phone Number [facility] Department [place] [address] * POCT glucose (11/04/2024 8:00 AM POST PARTUM NURSE) Glucose, POC 88 70 - 199 mg/dL Blood 11/04/2024 8:00 AM POST PARTUM NURSE 11/04/2024 8:00 AM POST PARTUM NURSE Florentino Mcgowan MD LAB POCT ORDERABLES - DEV ICE Final Result Performing Organization Address [facility] de Phone Number [facility] [place] [address] * (ABNORMAL) eGFR (11/03/2024 8:19 PM POST PARTUM NURSE) Pathologist [facility] eGFR 50(L) >=60 mL/min/1. 73 m2 [...] last reviewed 2021. Blood 11/03/2024 8:19 PM POST PARTUM NURSE 11/03/2024 8:41 PM POST PARTUM NURSE Ashley Ramsey NP LAB BLOOD ORDERABLES Karine dhaliwal Result [facility] Department of [place] [address] * Differential, auto (11/03/2024 8:19 PM POST PARTUM NURSE) Neutrophil abs 2.5 1.5 - 6.5 K/cumm Imm gran abs 0.0 0.0 - 0.1 K/cumm [facility] Lymphocyte abs 3.3 0.8 - 3.3 K/cumm [facility] Monocyte abs 0.3 0.2 - 0.8 K/cumm [facility] Eosinophil abs 0.1 0.0 - 0.5 K/cumm [facility] Basophil abs 0.0 0.0 - 0.1 K/cumm [facility] Neutrophil pct 39.7 % [facility] Comment: Interpretive Data Percent cell count reference ranges are not reported, since discordance with absolute values may lead to misinterpretation of CBC data. Current Interpretive Data was last revised on 2018. Imm gran pct 0.5 % [facility] Comment: Interpretive Data Percent cell count reference ranges are not reported, since discordance with absolute values may lead to misinterpretation of CBC data. Current Interpretive Data was last revised on 2018. Lymphocyte pct 53.2 % [facility] Comment: Interpretive Data Percent cell count reference ranges are not reported, since discordance with absolute values may lead to misinterpretation of CBC data. Current Interpretive Data was last revised on 2018. Monocyte pct 4.4 % [facility] Comment: Interpretive Data Percent cell count reference ranges are not reported, since discordance with absolute values may lead to misinterpretation of CBC data. Current Interpretive Data was last revised on 2018. Eosinophil pct 1.9 % [facility] Comment: Interpretive Data Percent cell count reference ranges are not reported, since discordance with absolute values may lead to misinterpretation of CBC data. Current Interpretive Data was last revised on 2018. Basophil pct 0.3 % [facility] Comment: Interpretive Data Percent cell count reference ranges are not reported, since discordance with absolute values may lead to misinterpretation of CBC data. Current Interpretive Data was last revised on 2018. Blood 11/03/2024 8:19 PM POST PARTUM NURSE 11/03/2024 8:41 PM POST PARTUM NURSE Ashley Ramsey SUPERVISOR PARTIAL DENTURE DEPARTMENT LAB BLOOD ORDERABLES Karine l Result [facility] [place] [address] * (ABNORMAL) CBC with auto differential (11/03/2024 8:19 PM POST PARTUM NURSE) WBC 6.2 3.8 - 9.9 K/cumm Hgb 9.7(L) 11.9 - 15.5 g/dL [facility] Hct 30.9(L) 35.6 - 45.5 % [facility] Plt 281 150 - 400 K/cumm [facility] MPV 10.4 9.1 - 12.3 fL [facility] RBC 3.55(L) 3.90 - 5.20 M/cumm [facility] MCV 87.0 81.3 - 96.4 fL [facility] MCH 27.3 27.1 - 33.3 pg [facility] MCHC 31.4(L) 32.3 - 35.7 g/dL [facility] RDW CV 17.0(H) 11.1 - 14.9 % [facility] RDW SD 54.2(H) 35.7 - 48.1 fL [facility] NRBC abs 0.00 0.00 - 0.01 K/cumm [facility] Blood 11/03/2024 8:19 PM POST PARTUM NURSE 11/03/2024 8:41 PM POST PARTUM NURSE Ashley Emi Roxy SUPERVISOR PARTIAL DENTURE DEPARTMENT LAB BLOOD ORDERABLES Karine l Result [facility] Department [place] [address] * (ABNORMAL) Basic metabolic panel (11/03/2024 8:19 PM POST PARTUM NURSE) Sodium 143 135 - 145 mmol/L Potassium, pl 3.7 3.3 - 4.9 mmol/L [facility] Chloride 107 97 - 110 mmol/L [facility] CO2 27 22 - 32 mmol/L [facility] Anion gap 9 2 - 15 mmol/L [facility] BUN 18 6 - 25 mg/dL [facility] Creatinine 1.16(H) 0.60 - 1.10 mg/dL [facility] Glucose 109 70 - 199 mg/dL [facility] Comment: Interpretive Data Fasting glucose [...] 2022. Calcium 9.2 8.5 - 10.3 mg/dL [facility] Blood 11/03/2024 8:19 PM POST PARTUM NURSE 11/03/2024 8:41 PM POST PARTUM NURSE Ashley Ramsey NP LAB BLOOD ORDERABLES Karine l Result Performing Organization Address City/[facility]/ZIP Co de Phone Number RADHA [facility] [employer] [place] [employer] [place] [address] * POCT glucose (11/03/2024 7:37 PM POST PARTUM NURSE) Glucose, POC 93 70 - 199 mg/dL Blood 11/03/2024 7:37 PM POST PARTUM NURSE 11/03/2024 7:37 PM POST PARTUM NURSE us Florentino Mcgowan MD LAB POCT ORDERABLES - DEV ICE Final Result Performing Organization Address [facility] Co de Phone Number [facility] [place] [address] * POCT glucose (11/03/2024 5:14 PM POST PARTUM NURSE) Glucose, POC 94 70 - 199 mg/dL Blood 11/03/2024 5:14 PM POST PARTUM NURSE 11/03/2024 5:14 PM POST PARTUM NURSE us Florentino Mcgowan MD LAB POCT ORDERABLES - DEV ICE Final Result Performing Organization Address [facility] de Phone Number [facility] [place] [employer] [place] [address] * Creatine kinase (CK), total (11/03/2024 3:31 PM POST PARTUM NURSE) CK 61 30 - 200 Units/L Blood 11/03/2024 3:31 PM POST PARTUM NURSE 11/03/2024 3:43 PM POST PARTUM NURSE us Katy Coates NP LAB BLOOD ORDERABLES Final Result Performing Organization Address [facility] de Phone Number [facility] [employer] [place] [employer] [place] [address] * POCT glucose (11/03/2024 11:43 AM POST PARTUM NURSE) Glucose, POC 108 70 - 199 mg/dL Blood 11/03/2024 11:4 3 AM POST PARTUM NURSE 11/03/2024 11:43 AM POST PARTUM NURSE us Florentino Mcgowan MD LAB POCT ORDERABLES - DEV ICE Final Result Performing Organization Address [facility] de Phone Number [facility] [place] [address] * eGFR (11/03/2024 10:10 AM POST PARTUM NURSE) eGFR 64 >=60 mL/min/1. 73 m2 Comment: [...] reviewed 2021. Blood 11/03/2024 10:1 0 AM POST PARTUM NURSE 11/03/2024 10:28 AM POST PARTUM NURSE Ashley Ramsey NP LAB BLOOD ORDERABLES Karine dhaliwal Result [facility] [place] [address] * Differential, auto (11/03/2024 10:10 AM POST PARTUM NURSE) Neutrophil abs 2.2 1.5 - 6.5 K/cumm Imm gran abs 0.0 0.0 - 0.1 K/cumm [facility] Lymphocyte abs 2.5 0.8 - 3.3 K/cumm [facility] Monocyte abs 0.3 0.2 - 0.8 K/cumm [facility] Eosinophil abs 0.1 0.0 - 0.5 K/cumm [facility] Basophil abs 0.0 0.0 - 0.1 K/cumm [facility] Neutrophil pct 43.1 % [facility] Comment: Interpretive Data Percent cell count reference ranges are not reported, since discordance with absolute values may lead to misinterpretation of CBC data. Current Interpretive Data was last revised on 2018. Imm gran pct 0.2 % [facility] Comment: Interpretive Data Percent cell count reference ranges are not reported, since discordance with absolute values may lead to misinterpretation of CBC data. Current Interpretive Data was last revised on 2018. Lymphocyte pct 47.1 % [facility] Comment: Interpretive Data Percent cell count reference ranges are not reported, since discordance with absolute values may lead to misinterpretation of CBC data. Current Interpretive Data was last revised on 2018. Monocyte pct 6.5 % [facility] Comment: Interpretive Data Percent cell count reference ranges are not reported, since discordance with absolute values may lead to misinterpretation of CBC data. Current Interpretive Data was last revised on 2018. Eosinophil pct 2.7 % [facility] Comment: Interpretive Data Percent cell count reference ranges are not reported, since discordance with absolute values may lead to misinterpretation of CBC data. Current Interpretive Data was last revised on 2018. Basophil pct 0.4 % [facility] Comment: Interpretive Data Percent cell count reference ranges are not reported, since discordance with absolute values may lead to misinterpretation of CBC data. Current Interpretive Data was last revised on 2018. Blood 11/03/2024 10:1 0 AM POST PARTUM NURSE 11/03/2024 10:29 AM POST PARTUM NURSE us Ashley Ramsey NP LAB BLOOD ORDERABLES Karine l Result [facility] Department of Laboratories [place], [place] [id number] * (ABNORMAL) CBC with auto differential (11/03/2024 10:10 AM POST PARTUM NURSE) WBC 5.2 3.8 - 9.9 K/cumm Hgb 9.9(L) 11.9 - 15.5 g/dL [facility] Hct 31.9(L) 35.6 - 45.5 % [facility] Plt 274 150 - 400 K/cumm [facility] MPV 9.9 9.1 - 12.3 fL [facility] RBC 3.60(L) 3.90 - 5.20 M/cumm [facility] MCV 88.6 81.3 - 96.4 fL [facility] MCH 27.5 27.1 - 33.3 pg [facility] MCHC 31.0(L) 32.3 - 35.7 g/dL [facility] RDW CV 16.9(H) 11.1 - 14.9 % [facility] RDW SD 55.3(H) 35.7 - 48.1 fL [facility] NRBC abs 0.00 0.00 - 0.01 K/cumm [facility] Blood 11/03/2024 10:1 0 AM POST PARTUM NURSE 11/03/2024 10:29 AM POST PARTUM NURSE us Ashley Ramsey NP LAB BLOOD ORDERABLES Karine l Result [facility] [place] [address] * Creatine kinase (CK), total (11/03/2024 10:10 AM POST PARTUM NURSE) Pathologist [facility] CK 60 30 - 200 Units/L Blood 11/03/2024 10:1 0 AM POST PARTUM NURSE 11/03/2024 10:28 AM POST PARTUM NURSE us Florentino Mcgowan MD LAB BLOOD ORDERABLES Karine l Result [facility] [place] [address] * Basic metabolic panel (11/03/2024 10:10 AM POST PARTUM NURSE) Pathologist [facility] Sodium 141 135 - 145 mmol/L Potassium, pl 4.3 3.3 - 4.9 mmol/L [facility] Chloride 108 97 - 110 mmol/L [facility] CO2 25 22 - 32 mmol/L [facility] Anion gap 8 2 - 15 mmol/L [facility] BUN 15 6 - 25 mg/dL [facility] Creatinine 0.94 0.60 - 1.10 mg/dL [facility] Glucose 94 70 - 199 mg/dL [facility] Comment: Interpretive Data Fasting glucose [...] 2022. Calcium 9.3 8.5 - 10.3 mg/dL [facility] Blood 11/03/2024 10:1 0 AM POST PARTUM NURSE 11/03/2024 10:28 AM POST PARTUM NURSE us Ashley Ramsey NP LAB BLOOD ORDERABLES Karine l Result Performing Organization Address City/[facility]/ZIP Co de Phone Number [facility] Department [place] [address] * POCT glucose (11/03/2024 8:07 AM POST PARTUM NURSE) Glucose, POC 94 70 - 199 mg/dL Blood 11/03/2024 8:07 AM POST PARTUM NURSE 11/03/2024 8:07 AM POST PARTUM NURSE us Florentino Mcgowan MD LAB POCT ORDERABLES - DEV ICE Final Result Performing Organization Address [facility]/ZIP Co de Phone Number [facility] [place] [address] * Type and screen (11/02/2024 10:31 PM POST PARTUM NURSE) Vivi, indirect Negative ABO Rh A Positive [facility] Blood 11/02/2024 10:3 1 PM POST PARTUM NURSE 11/02/2024 11:44 PM POST PARTUM NURSE Narrative [facility] - 11/03/2024 12:41 AM POST PARTUM NURSE Has the patient had Daratumumab or Isatuximab in the past 6 months?->Unknown Florentino Mcgowan MD LAB BLOOD BANK TEST ORDER VARGAS Final Result Performing Organization Address City/[facility] Co de Phone Number [facility] [place] [address] * POCT glucose (11/02/2024 7:46 PM POST PARTUM NURSE) Glucose, POC 93 70 - 199 mg/dL Blood 11/02/2024 7:46 PM POST PARTUM NURSE 11/02/2024 7:46 PM POST PARTUM NURSE Florentino Mcgowan MD LAB POCT ORDERABLES - DEV ICE Final Result Performing Organization Address [facility] de Phone Number [facility] [place] [employer] [place] [address] * POCT glucose (11/02/2024 6:00 PM POST PARTUM NURSE) Glucose, POC 85 70 - 199 mg/dL Blood 11/02/2024 6:00 PM POST PARTUM NURSE 11/02/2024 6:00 PM POST PARTUM NURSE Florentino Mcgowan MD LAB POCT ORDERABLES - DEV ICE Final Result Performing Organization Address [facility] de Phone Number [facility] [place] [employer] [place] [address] * POCT glucose (11/02/2024 1:06 PM POST PARTUM NURSE) Glucose, POC 120 70 - 199 mg/dL Blood 11/02/2024 1:06 PM POST PARTUM NURSE 11/02/2024 1:06 PM POST PARTUM NURSE Florentino Mcgowan MD LAB POCT ORDERABLES - DEV ICE Final Result Performing Organization Address [facility] de Phone Number [facility] [place] [address] * POCT glucose (11/02/2024 8:23 AM POST PARTUM NURSE) Glucose, POC 81 70 - 199 mg/dL Blood 11/02/2024 8:23 AM POST PARTUM NURSE 11/02/2024 8:23 AM POST PARTUM NURSE Florentino Mcgowan MD LAB POCT ORDERABLES - DEV ICE Final Result Performing Organization Address [facility] [place] [address] * (ABNORMAL) Vancomycin level trough Vanc trough before the 4th dose. (11/01/2024 9:40 PM POST PARTUM NURSE) Vancomycin trough <4.0(L) 10.0 - 20.0 mcg/mL Comment:Repeated and Verifie d Blood 11/01/2024 9:40 PM POST PARTUM NURSE 11/01/2024 9:56 PM POST PARTUM NURSE Narrative [facility] - 11/01/2024 10:58 PM POST PARTUM NURSE Vanc trough before the 4th dose. Juan Jose Caldwell MD LAB BLOOD ORDERAB LES Final Result Performing Organization Address [facility] de Phone Number [facility] [place] [address] * POCT glucose (11/01/2024 7:46 PM POST PARTUM NURSE) Glucose, POC 182 70 - 199 mg/dL Blood 11/01/2024 7:46 PM POST PARTUM NURSE 11/01/2024 7:46 PM POST PARTUM NURSE us Florentino Mcgowan MD LAB POCT ORDERABLES - DEV ICE Final Result Performing Organization Address City/[facility] Co de Phone Number [facility] [place] [address] * POCT glucose (11/01/2024 4:49 PM POST PARTUM NURSE) Glucose, POC 107 70 - 199 mg/dL Blood 11/01/2024 4:49 PM POST PARTUM NURSE 11/01/2024 4:49 PM POST PARTUM NURSE us Florentino Mcgowan MD LAB POCT ORDERABLES - DEV ICE Final Result Performing Organization Address [facility] Co de Phone Number [facility] [place] [address] * POCT glucose (11/01/2024 12:01 PM POST PARTUM NURSE) Glucose, POC 114 70 - 199 mg/dL Blood 11/01/2024 12:0 1 PM POST PARTUM NURSE 11/01/2024 12:01 PM POST PARTUM NURSE us Florentino Mcgowan MD LAB POCT ORDERABLES - DEV ICE Final Result Performing Organization Address [facility] Co de Phone Number [facility] [place] [employer] [place] [address] * POCT glucose (11/01/2024 8:18 AM POST PARTUM NURSE) Glucose, POC 81 70 - 199 mg/dL Blood 11/01/2024 8:18 AM POST PARTUM NURSE 11/01/2024 8:18 AM POST PARTUM NURSE us Florentino Mcgowan MD LAB POCT ORDERABLES - DEV ICE Final Result Performing Organization Address City/[facility] Co de Phone Number [facility] [place] [address] * (ABNORMAL) Vancomycin level trough (10/31/2024 8:30 PM POST PARTUM NURSE) Vancomycin trough 7.3(L) 10.0 - 20.0 mcg/mL Blood 10/31/2024 8:30 PM POST PARTUM NURSE 11/01/2024 12:40 AM POST PARTUM NURSE Florentino Mcgowan MD LAB BLOOD ORDERABLES Karine l Result Performing Organization Address [facility] de Phone Number [facility] Department [place] [address] * POCT glucose (10/31/2024 7:52 PM POST PARTUM NURSE) Glucose, POC 111 70 - 199 mg/dL Blood 10/31/2024 7:52 PM POST PARTUM NURSE 10/31/2024 7:52 PM POST PARTUM NURSE Florentino Mcgowan MD LAB POCT ORDERABLES - DEV ICE Final Result Performing Organization Address [facility] de Phone Number [facility] [employer] [place] [address] * POCT glucose (10/31/2024 3:19 PM POST PARTUM NURSE) Glucose, POC 74 70 - 199 mg/dL Blood 10/31/2024 3:19 PM POST PARTUM NURSE 10/31/2024 3:19 PM POST PARTUM NURSE Florentino Mcgowan MD LAB POCT ORDERABLES - DEV ICE Final Result Performing Organization Address [facility] de Phone Number [facility] [place] [employer] [place] [address] * MD AN PROCEDURE PLACEHOLDER (10/31/2024 2:47 PM POST PARTUM NURSE) Narrative Yudi Jarrett CRNA - 10/31/2024 2:47 PM POST PARTUM NURSE Yudi Jarrett CRNA 10/31/2024 2:47 PM Peripheral [...] MD PhD ANESTHESIA ORDERABLES Final Result * MD AN ELECTIVE ENDOTRACHEAL AIRWAY, MD AN PROCEDURE PLACEHOLDER (10/31/2024 2:39 PM POST PARTUM NURSE) Narrative Yudi Jarrett CRNA - 10/31/2024 2:39 PM POST PARTUM NURSE Yudi Jarrett CRNA 10/31/2024 2:39 PM Airway [...] Result * POCT glucose (10/31/2024 2:33 PM POST PARTUM NURSE) Glucose, POC 79 70 - 199 mg/dL Blood 10/31/2024 2:33 PM POST PARTUM NURSE 10/31/2024 2:33 PM POST PARTUM NURSE us Florentino Mcgowan MD LAB POCT ORDERABLES - DEV ICE Final Result RADHA TRAN [facility] [place] [address] * MD AN PROCEDURE PLACEHOLDER (10/31/2024 2:23 PM POST PARTUM NURSE) Anand Orosco MD - 10/31/2024 2:23 PM POST PARTUM NURSE Nikko Snell MD 10/31/2024 2:24 PM Peripheral [...] MD PhD ANESTHESIA ORDERABLES Final Result * MD AN PROCEDURE PLACEHOLDER (10/31/2024 2:20 PM POST PARTUM NURSE) Anand Orosco MD - 10/31/2024 2:20 PM POST PARTUM NURSE Nikko Snell MD 10/31/2024 2:21 PM Peripheral [...] patient tolerated procedure well with no complications Pio Bauer MD PhD ANESTHESIA ORDERABLES Final Result * POCT glucose (10/31/2024 11:49 AM POST PARTUM NURSE) Glucose, POC 83 70 - 199 mg/dL Blood 10/31/2024 11:4 9 AM POST PARTUM NURSE 10/31/2024 11:49 AM POST PARTUM NURSE Florentino Mcgowan MD LAB POCT ORDERABLES - DEV ICE Final Result [facility] Department [place] [address] * POCT glucose (10/31/2024 8:15 AM POST PARTUM NURSE) Glucose, POC 82 70 - 199 mg/dL Blood 10/31/2024 8:15 AM POST PARTUM NURSE 10/31/2024 8:15 AM POST PARTUM NURSE Florentino Mcgowan MD LAB POCT ORDERABLES - DEV ICE Final Result Performing Organization Address [facility] Co de Phone Number [facility] [place] [employer] [place] [address] * (ABNORMAL) CBC without differential (10/31/2024 5:40 AM POST PARTUM NURSE) Pathologist [facility] WBC 6.0 3.8 - 9.9 K/cumm Hgb 9.6(L) 11.9 - 15.5 g/dL [facility] Hct 30.8(L) 35.6 - 45.5 % [facility] Plt 244 150 - 400 K/cumm [facility] MPV 10.5 9.1 - 12.3 fL [facility] RBC 3.46(L) 3.90 - 5.20 M/cumm [facility] MCV 89.0 81.3 - 96.4 fL [facility] MCH 27.7 27.1 - 33.3 pg [facility] MCHC 31.2(L) 32.3 - 35.7 g/dL [facility] RDW CV 17.1(H) 11.1 - 14.9 % [facility] RDW SD 55.8(H) 35.7 - 48.1 fL [facility] NRBC abs 0.00 0.00 - 0.01 K/cumm [facility] Blood 10/31/2024 5:40 AM POST PARTUM NURSE 10/31/2024 5:54 AM POST PARTUM NURSE Brandt Marquez MD LAB BLOOD ORDERABLES Fi nal Result [facility] [place] [address] * POCT glucose (10/31/2024 3:57 AM POST PARTUM NURSE) Glucose, POC 92 70 - 199 mg/dL Blood 10/31/2024 3:57 AM POST PARTUM NURSE 10/31/2024 3:57 AM POST PARTUM NURSE us Florentino Mcgowan MD LAB POCT ORDERABLES - DEV ICE Final Result Performing Organization Address City/[facility]/ZIP Co de Phone Number RADHA [facility] [place] [address] * POCT glucose (10/31/2024 12:12 AM POST PARTUM NURSE) [facility] Glucose, POC 121 70 - 199 mg/dL Blood 10/31/2024 12:1 2 AM POST PARTUM NURSE 10/31/2024 12:12 AM POST PARTUM NURSE Florentino Mcgowan MD LAB POCT ORDERABLES - DEV ICE Final Result Performing Organization Address [facility] Co de Phone Number RADHA [facility] [place] [address] * (ABNORMAL) Troponin I high-sensitivity 6-hour (10/30/2024 9:21 PM POST PARTUM NURSE) [facility] Trop I hs 18(H) <=17 ng/L Comment: Interpretive Data For further hscTnI resources including the diagnostic algorithm and an aid in interpretation, copy and paste this link: https://bjhlab.testcatalog.org/show/hsTrop-1 Current Interpretive Data last revised 2020. Trop I hs delta -3 ng/L [facility] Trop I hs interp Insignificant CERNER [facility]J H Blood 10/30/2024 9:21 PM POST PARTUM NURSE 10/30/2024 9:29 PM POST PARTUM NURSE Ashley Ramsey NP LAB BLOOD ORDERABLES Karine l Result Performing Organization Address [facility]/ZIP Co de Phone Number [facility] [place] [address] * (ABNORMAL) eGFR (10/30/2024 9:21 PM POST PARTUM NURSE) [facility] eGFR 45(L) >=60 mL/min/1. 73 m2 Comment: [...] last reviewed 2021. Blood 10/30/2024 9:21 PM POST PARTUM NURSE 10/30/2024 9:29 PM POST PARTUM NURSE Florentino Mcgowan MD LAB BLOOD ORDERABLES Karine l Result Performing Organization Address City/[facility]/ZIP Co de Phone Number [facility] [place] [address] * Type and screen (10/30/2024 9:21 PM POST PARTUM NURSE) Vivi, indirect Negative ABO Rh A Positive [facility] Blood 10/30/2024 9:21 PM POST PARTUM NURSE 10/30/2024 10:08 PM POST PARTUM NURSE Narrative [facility] - 10/30/2024 10:51 PM POST PARTUM NURSE Has the patient had Daratumumab or Isatuximab in the past 6 months?->Unknown Florentino Mcgoawn MD LAB BLOOD BANK TEST ORDER VARGAS Final Result [facility] [place] [address] * (ABNORMAL) Basic metabolic panel (10/30/2024 9:21 PM POST PARTUM NURSE) Sodium 140 135 - 145 mmol/L Potassium, pl 4.0 3.3 - 4.9 mmol/L [facility] Chloride 106 97 - 110 mmol/L [facility] CO2 25 22 - 32 mmol/L [facility] Anion gap 9 2 - 15 mmol/L [facility] BUN 24 6 - 25 mg/dL [facility] Creatinine 1.26(H) 0.60 - 1.10 mg/dL [facility] Glucose 144 70 - 199 mg/dL [facility] Comment: Interpretive Data Fasting glucose [...] 2022. Calcium 8.8 8.5 - 10.3 mg/dL [facility] Blood 10/30/2024 9:21 PM POST PARTUM NURSE 10/30/2024 9:29 PM POST PARTUM NURSE Florentino Mcgowan MD LAB BLOOD ORDERABLES Karine l Result Performing Organization Address City/[facility]/ZIP Co de Phone Number [facility] [place] [employer] [place] [address] * POCT glucose (10/30/2024 8:04 PM POST PARTUM NURSE) Glucose, POC 167 70 - 199 mg/dL Blood 10/30/2024 8:04 PM POST PARTUM NURSE 10/30/2024 8:04 PM POST PARTUM NURSE Florentino Mcgowan MD LAB POCT ORDERABLES - DEV ICE Final Result Performing Organization Address City/[facility]/ZIP Co de Phone Number [facility] [place] [employer] [place] [address] * Troponin I high-sensitivity 2-hour (10/30/2024 6:17 PM POST PARTUM NURSE) Trop I hs 17 <=17 ng/L Comment: Interpretive Data For further hscTnI resources including the diagnostic algorithm and an aid in interpretation, copy and paste this link: [email or web address]/show/hsTrop-[email or web address] Current Interpretive Data last revised 2020. Trop I hs delta -4 ng/L [facility] Trop I hs interp Insignificant [facility]J H Blood 10/30/2024 6:17 PM POST PARTUM NURSE 10/30/2024 6:30 PM POST PARTUM NURSE Ashley Ramsey NP LAB BLOOD ORDERABLES Karine l Result Performing Organization Address City/[facility]/ZIP Co de Phone Number [facility] Department [place] [address] * POCT glucose (10/30/2024 5:07 PM POST PARTUM NURSE) [facility] Glucose, POC 107 70 - 199 mg/dL Blood 10/30/2024 5:07 PM POST PARTUM NURSE 10/30/2024 5:07 PM POST PARTUM NURSE us Florentino Mcgowan MD LAB POCT ORDERABLES - DEV ICE Final Result Performing Organization Address [facility]/ZIP Co de Phone Number [facility] Department [place] [address] * (ABNORMAL) Troponin I high-sensitivity series (baseline, 2hr, 4hr, 6hr) (10/30/2024 3:52 PM POST PARTUM NURSE) Pathologist [facility] Trop I hs 21(H) <=17 ng/L Comment: Interpretive Data For further hscTnI resources including the diagnostic algorithm and an aid in interpretation, copy and paste this link: [email or web address]/show/[email or web address] Current Interpretive Data last revised 2020. Blood 10/30/2024 3:52 PM POST PARTUM NURSE 10/30/2024 4:06 PM POST PARTUM NURSE Ashley Ramsey SUPERVISOR PARTIAL DENTURE DEPARTMENT LAB BLOOD ORDERABLES Karine l Result Performing Organization Address [facility] Co de Phone Number [facility] [place] [address] * (ABNORMAL) eGFR (10/30/2024 3:52 PM POST PARTUM NURSE) eGFR 44(L) >=60 mL/min/1. 73 m2 Comment: [...] last reviewed 2021. Blood 10/30/2024 3:52 PM POST PARTUM NURSE 10/30/2024 4:05 PM POST PARTUM NURSE Ashley Ramsey NP LAB BLOOD ORDERABLES Karine l Result Performing Organization Address City/[facility]/ZIP Co de Phone Number [facility] [place] [address] * (ABNORMAL) D-dimer, quantitative (10/30/2024 3:52 PM POST PARTUM NURSE) D-Dimer 2,253(H) <=499 ng/mL FEU Comment: Interpretive [...] et al. Brit Med J. 2013;346:f2492. Talib BERKOWITZ et al. Annals Int Med. 2015;163:701-11. Current interpretive data was last revised on 2019. Blood 10/30/2024 3:52 PM POST PARTUM NURSE 10/30/2024 4:14 PM POST PARTUM NURSE Ashley Ramsey NP LAB BLOOD ORDERABLES Karine dhaliwal Result [facility] Department [place] [address] * (ABNORMAL) CBC without differential (10/30/2024 3:52 PM POST PARTUM NURSE) WBC 8.1 3.8 - 9.9 K/cumm Hgb 11.3(L) 11.9 - 15.5 g/dL [facility] Hct 35.8 35.6 - 45.5 % [facility] Plt 276 150 - 400 K/cumm [facility] MPV 11.0 9.1 - 12.3 fL [facility] RBC 4.08 3.90 - 5.20 M/cumm [facility] MCV 87.7 81.3 - 96.4 fL [facility] MCH 27.7 27.1 - 33.3 pg [facility] MCHC 31.6(L) 32.3 - 35.7 g/dL [facility] RDW CV 16.9(H) 11.1 - 14.9 % [facility] RDW SD 54.3(H) 35.7 - 48.1 fL [facility] NRBC abs 0.00 0.00 - 0.01 K/cumm [facility] Blood 10/30/2024 3:52 PM POST PARTUM NURSE 10/30/2024 4:06 PM POST PARTUM NURSE Ashley Middleton Roxy SUPERVISOR PARTIAL DENTURE DEPARTMENT LAB BLOOD ORDERABLES Karine l Result Performing Organization Address [facility] Co de Phone Number [facility] [place] [address] * (ABNORMAL) Magnesium (10/30/2024 3:52 PM POST PARTUM NURSE) Pathologist [facility] Magnesium 2.6(H) 1.4 - 2.5 mg/dL Blood 10/30/2024 3:52 PM POST PARTUM NURSE 10/30/2024 4:05 PM POST PARTUM NURSE [facility] Emi Ramsey LAB BLOOD ORDERABLES Karine l Result Performing Organization Address [facility] de Phone Number [facility] [place] [address] * (ABNORMAL) Comprehensive metabolic panel (10/30/2024 3:52 PM POST PARTUM NURSE) [facility] Sodium 140 135 - 145 mmol/L Potassium, pl 4.3 3.3 - 4.9 mmol/L [facility] Chloride 103 97 - 110 mmol/L [facility] CO2 24 22 - 32 mmol/L [facility] Anion gap 13 2 - 15 mmol/L [facility] BUN 25 6 - 25 mg/dL [facility] Creatinine 1.29(H) 0.60 - 1.10 mg/dL [facility] Glucose 122 70 - 199 mg/dL [facility] Comment: Interpretive Data Fasting glucose [...] Calcium 9.7 8.5 - 10.3 mg/dL [facility] Bilirubin, total 0.3 0.1 - 1.2 mg/dL [facility] Protein, pl 8.6(H) 6.5 - 8.5 g/dL [facility] Albumin 4.0 3.5 - 5.0 g/dL [facility] Alk phos 88 40 - 130 Units/L [facility] ALT 13 7 - 45 Units/L [facility] AST 29 10 - 45 Units/L [facility] Blood 10/30/2024 3:52 PM POST PARTUM NURSE 10/30/2024 4:05 PM POST PARTUM NURSE Ashley Ramsey NP LAB BLOOD ORDERABLES Karine l Result Performing Organization Address [facility] Co de Phone Number [facility] Department [place] [address] * POCT glucose (10/30/2024 11:14 AM POST PARTUM NURSE) Glucose, POC 98 70 - 199 mg/dL Blood 10/30/2024 11:1 4 AM POST PARTUM NURSE 10/30/2024 11:14 AM POST PARTUM NURSE Florentino Mcgowan MD LAB POCT ORDERABLES - DEV ICE Final Result Performing Organization Address City/[facility]/ZIP Co de Phone Number [facility] [place] [address] * POCT glucose (10/30/2024 7:30 AM POST PARTUM NURSE) Glucose, POC 76 70 - 199 mg/dL Blood 10/30/2024 7:30 AM POST PARTUM NURSE 10/30/2024 7:30 AM POST PARTUM NURSE Florentino Mcgowan MD LAB POCT ORDERABLES - DEV ICE Final Result Performing Organization Address [facility] de Phone Number RADHA [facility] [place] [address] * eGFR (10/29/2024 10:42 PM POST PARTUM NURSE) [facility] eGFR 63 >=60 mL/min/1. 73 m2 Comment: [...] reviewed 2021. Blood 10/29/2024 10:4 2 PM POST PARTUM NURSE 10/29/2024 11:31 PM POST PARTUM NURSE us Florentino Mcgowan MD LAB BLOOD ORDERABLES Karine l Result Performing Organization Address [facility] Co de Phone Number RADHA [facility] Department [place] [address] * (ABNORMAL) CBC without differential (10/29/2024 10:42 PM POST PARTUM NURSE) [facility] WBC 8.3 3.8 - 9.9 K/cumm Hgb 11.0(L) 11.9 - 15.5 g/dL [facility] Hct 36.0 35.6 - 45.5 % [facility] Plt 210 150 - 400 K/cumm [facility] MPV 11.2 9.1 - 12.3 fL [facility] RBC 4.02 3.90 - 5.20 M/cumm [facility] MCV 89.6 81.3 - 96.4 fL [facility] MCH 27.4 27.1 - 33.3 pg [facility] MCHC 30.6(L) 32.3 - 35.7 g/dL [facility] RDW CV 17.2(H) 11.1 - 14.9 % [facility] RDW SD 56.6(H) 35.7 - 48.1 fL [facility] NRBC abs 0.00 0.00 - 0.01 K/cumm [facility] Blood 10/29/2024 10:4 2 PM POST PARTUM NURSE 10/29/2024 11:31 PM POST PARTUM NURSE us Florentino Mcgowan MD LAB BLOOD ORDERABLES Karine l Result [facility] Department [place] [address] * Basic metabolic panel (10/29/2024 10:42 PM POST PARTUM NURSE) Sodium 143 135 - 145 mmol/L Potassium, pl 4.2 3.3 - 4.9 mmol/L [facility] Chloride 107 97 - 110 mmol/L [facility] CO2 22 22 - 32 mmol/L [facility] Anion gap 14 2 - 15 mmol/L [facility] BUN 24 6 - 25 mg/dL [facility] Creatinine 0.96 0.60 - 1.10 mg/dL [facility] Glucose 114 70 - 199 mg/dL [facility] Comment: Interpretive Data Fasting glucose [...] 2022. Calcium 9.3 8.5 - 10.3 mg/dL [facility] Blood 10/29/2024 10:4 2 PM POST PARTUM NURSE 10/29/2024 11:31 PM POST PARTUM NURSE Result [facility] Florentino Mcgowan MD LAB BLOOD ORDERABLES Karine l Result Performing Organization Address [facility] Co de Phone Number [facility] [place] [address] * POCT glucose (10/29/2024 8:35 PM POST PARTUM NURSE) Glucose, POC 110 70 - 199 mg/dL Blood 10/29/2024 8:35 PM POST PARTUM NURSE 10/29/2024 8:35 PM POST PARTUM NURSE Florentino Mcgowan MD LAB POCT ORDERABLES - DEV ICE Final Result Performing Organization Address [facility] Co de Phone Number [facility] [place] [address] * POCT glucose (10/29/2024 6:14 PM POST PARTUM NURSE) Glucose, POC 96 70 - 199 mg/dL Blood 10/29/2024 6:14 PM POST PARTUM NURSE 10/29/2024 6:14 PM POST PARTUM NURSE Florentino Mcgowan MD LAB POCT ORDERABLES - DEV ICE Final Result Performing Organization Address [facility] [place] [address] * [place] Fluoroscopy < 1 Hour (10/29/2024 5:34 PM POST PARTUM NURSE) Narrative [facility] - 10/29/2024 5:35 PM POST PARTUM NURSE The images from this study are not interpreted by Radiology. Please refer to the physician's procedure / OR operative note. Florentino Mcgowan MD IMG FLUOROSCOPY PROCEDURE S Final Result Performing Organization Address [facility] Co de Phone Number [email or web address] * (ABNORMAL) Tissue aerobic and anaerobic culture and gram stain Tissue Ankle, right (10/29/2024 5:10PM POST PARTUM NURSE) Direct Specimen Exam Stain: No polymorphonuclear leukocytes seen. No organisms seen. Report Final Report: Few Staphylococcus aureus Few Enterococcus faecalis For susceptibility results, refer to accession number [id number] on the right ankle tissue culture from 10/29/2024 (.) [facility] Organism STAPHYLOCOCCUS AUREUS [facility] Organism ENTEROCOCCUS FAECALIS [facility] Tissue (Ankle, right) 10/29/2024 5:10 PM POST PARTUM NURSE 10/29/2024 6:32 PM POST PARTUM NURSE Narrative [facility] - 11/02/2024 10:12 AM POST PARTUM NURSE Deltoid ligament Testing performed by [facility] ([phone]) Specimens submitted from normally sterile body sites [...] L ORDERABLES Final Result Performing Organization Address [facility] Co de Phone Number RADHA TRAN [facility] [place] [address] * (ABNORMAL) Tissue aerobic and anaerobic culture and gram stain Tissue Ankle, right (10/29/2024 5:10PM POST PARTUM NURSE) Direct Specimen Exam Stain: Few polymorphonuclear leukocytes seen. Few Gram Positive Cocci Report Final Report: Few Staphylococcus aureus Few Enterococcus faecalis For susceptibility results, refer to accession number [id number] on the right ankle tissue culture from 10/29/2024 Rare Staphylococcus lugdunensis This Staphylococcus lugdunensis is a wtysl-eays-hozvmuqgv producing strain. This isolate is resistant to oxacillin but not cephalosporin agents. Rare Mixed microorganisms. (.) RADHA WALDRON Organism STAPHYLOCOCCUS AUREUS RADHA [facility] Organism ENTEROCOCCUS FAECALIS RADHA [facility] Organism STAPHYLOCOCCUS LUGDUNENSIS RADHA [facility] Organism MIXED MICROORGANISMS. RADHA WALDRON Tissue (Ankle, right) 10/29/2024 5:10 PM POST PARTUM NURSE 10/29/2024 6:34 PM POST PARTUM NURSE Narrative RADHA WALDRON - 11/10/2024 1:50 PM POST PARTUM NURSE Deep medial ankle Testing performed by [facility] ([phone]) Specimens submitted from normally sterile body sites [...] MICROBIOLOGY - GENERA L ORDERABLES Final Result RADHA WALDRON [facility] Department [place] [address] * (ABNORMAL) Tissue aerobic and anaerobic culture and gram stain Tissue Ankle, right (10/29/2024 5:02PM POST PARTUM NURSE) Direct Specimen Exam Stain: Rare polymorphonuclear leukocytes seen. No organisms seen. Report Final Report: Few Staphylococcus aureus Methicillin susceptible (MSSA) by penicillin binding protein 2a (PBP2a) testing. Few Enterococcus faecalis Rare Mixed microorganisms. (.) RADHA [facility] Organism STAPHYLOCOCCUS AUREUS RADHA [facility] Organism ENTER[facility]ECALIS [facility] Organism MIXED MICROORGANISMS. RADHA [facility] Tissue (Ankle, right) 10/29/2024 5:02 PM POST PARTUM NURSE 10/29/2024 6:31 PM POST PARTUM NURSE Narrative RADHA [facility] - 11/09/2024 1:58 PM POST PARTUM NURSE Tissue from underneath plate Testing performed by [facility] ([phone]) Specimens submitted from normally sterile body sites [...] MICROBIOLOGY - GENERA L ORDERABLES Final Result [facility] [place] [address] * POCT glucose (10/29/2024 5:00 PM POST PARTUM NURSE) Glucose, POC 93 70 - 199 mg/dL Blood 10/29/2024 5:00 PM POST PARTUM NURSE 10/29/2024 5:00 PM POST PARTUM NURSE us Florentino Mcgowan MD LAB POCT ORDERABLES - DEV ICE Final Result Performing Organization Address City/State/[facility] Co de Phone Number RADHA [facility] [place] [address] * Peripheral IV Catheter (10/29/2024 4:49 PM POST PARTUM NURSE) Narrative Sunshine Enamorado DO - 10/29/2024 4:49 PM POST PARTUM NURSE Sunshine Enamorado DO 10/29/2024 4:50 PM Peripheral [...] Final Result * Airway (10/29/2024 4:49 PM POST PARTUM NURSE) Narrative Sunshine Enamorado DO - 10/29/2024 4:49 PM POST PARTUM NURSE Sunshine Enamorado DO 10/29/2024 4:49 PM Airway [...] with: silk tape Number of attempts: 1 Sofya Nesbitt MD PhD ANESTHESIA ORDERA BLES Final Result * POCT glucose (10/29/2024 11:21 AM POST PARTUM NURSE) Glucose, POC 85 70 - 199 mg/dL Blood 10/29/2024 11:2 1 AM POST PARTUM NURSE 10/29/2024 11:21 AM POST PARTUM NURSE Florentino Mcgowan MD LAB POCT ORDERABLES - DEV ICE Final Result Performing Organization Address [facility] de Phone Number [facility] [place] [address] * POCT glucose (10/29/2024 7:37 AM POST PARTUM NURSE) Glucose, POC 96 70 - 199 mg/dL Blood 10/29/2024 7:37 AM POST PARTUM NURSE 10/29/2024 7:37 AM POST PARTUM NURSE Florentino Mcgowan MD LAB POCT ORDERABLES - DEV ICE Final Result Performing Organization Address [facility] de Phone Number [facility] [place] [employer] [place] [address] * Urinalysis reflex to microscopic and culture Urine (10/29/2024 4:45 AM POST PARTUM NURSE) Color, ur Straw Yellow Clarity, ur Clear Clear [facility] Specific gravity, ur 1.016 1.003 - 1.030 [facility] pH, urine 5.5 [facility] Comment: Interpretive Data U rine pH is affected by diet, medications, systemic acid-base disturbances, and renal tubular function. pH may affect urinary stone formation. For example, urine pH below 6.0 may help reduce the tendency for calcium phosphate stones and pH greater than 6.0 may reduce the tendency for uric acid stone formation. Source: [facility] Current Interpretive Data was last revised on 2017 Protein, ur ql Negative Negative [facility] Glucose, ur ql Negative Negative [facility] Ketones, ur Negative Negative [facility] Bilirubin, ur Negative Negative [facility] Blood, ur Negative Negative [facility] Urobilinogen, ur <2.0 <2.0 mg/dL [facility] Nitrite, ur Negative Negative [facility] Leukocyte esterase, ur Negative Negative [facility] H UA reflex comment Reflex conditions for microscopic UA and culture not met. [facility] Urine 10/29/2024 4:45 AM POST PARTUM NURSE 10/29/2024 5:10 AM POST PARTUM NURSE us Florentino Mcgowan MD LAB MICROBIOLOGY - GENERA L ORDERABLES Final Result [facility] Department [place] [address] * (ABNORMAL) eGFR (10/28/2024 10:05 PM POST PARTUM NURSE) eGFR 50(L) >=60 mL/min/1. 73 m2 Comment: [...] reviewed 2021. Blood 10/28/2024 10:0 5 PM POST PARTUM NURSE 10/28/2024 10:33 PM POST PARTUM NURSE Florentino Mcgowan MD LAB BLOOD ORDERABLES Karine l Result Performing Organization Address [facility] de Phone Number [facility] [place] [employer] [place] [address] * aPTT (10/28/2024 10:05 PM POST PARTUM NURSE) aPTT 29 28 - 38 sec Comment: Interpretive Data Heparin therapeutic range: 66.0 - 100.0 seconds. Range based on correlation with therapeutic heparin activity range of 0.3 - 0.7 Units/mL. Current interpretive data was last revised on 2023. Blood 10/28/2024 10:0 5 PM POST PARTUM NURSE 10/28/2024 10:37 PM POST PARTUM NURSE Florentino Mcgowan MD LAB BLOOD ORDERABLES Karine l Result Performing Organization Address [facility] de Phone Number [facility] [place] [address] * Protime-INR (10/28/2024 10:05 PM POST PARTUM NURSE) PT 12.2 9.7 - 13.0 sec INR 1.13 0.90 - 1.20 [facility] Comment: Interpretive data Oral anticoagulant therapeutic ranges: Venous thromboembolism prophylaxis or treatment: 2.0-3.0 CARDIOLOGY Standard range: 2.0-3.0 High-intensity range: 2.5-3.5 Refer to indication-specific guidelines for appropriate target ranges for prosthetic heart valve replacement. Current interpretive data was last revised on 2019. Blood 10/28/2024 10:0 5 PM POST PARTUM NURSE 10/28/2024 10:37 PM POST PARTUM NURSE Florentino Mcgowan MD LAB BLOOD ORDERABLES Karine l Result Performing Organization Address City/[facility]/ZIP Co de Phone Number [facility] [place] [address] * (ABNORMAL) CBC without differential (10/28/2024 10:05 PM POST PARTUM NURSE) Pathologist [facility] WBC 9.2 3.8 - 9.9 K/cumm Hgb 9.4(L) 11.9 - 15.5 g/dL [facility] Hct 29.0(L) 35.6 - 45.5 % [facility] Plt 201 150 - 400 K/cumm [facility] MPV 11.1 9.1 - 12.3 fL [facility] RBC 3.40(L) 3.90 - 5.20 M/cumm [facility] MCV 85.3 81.3 - 96.4 fL [facility] MCH 27.6 27.1 - 33.3 pg [facility] MCHC 32.4 32.3 - 35.7 g/dL [facility] RDW CV 17.1(H) 11.1 - 14.9 % [facility] RDW SD 53.1(H) 35.7 - 48.1 fL [facility] NRBC abs 0.00 0.00 - 0.01 K/cumm [facility] Blood 10/28/2024 10:0 5 PM POST PARTUM NURSE 10/28/2024 10:34 PM POST PARTUM NURSE Florentino Mcgowan MD LAB BLOOD ORDERABLES Karine l Result [facility] [place] [address] * Type and screen (10/28/2024 10:05 PM POST PARTUM NURSE) Pathologist [facility] Vivi, indirect Negative ABO Rh A Positive [facility] Blood 10/28/2024 10:0 5 PM POST PARTUM NURSE 10/28/2024 10:50 PM POST PARTUM NURSE Narrative [facility] - 10/28/2024 11:47 PM POST PARTUM NURSE Has the patient had Daratumumab or Isatuximab in the past 6 months?->Unknown us Florentino Mcgowan MD LAB BLOOD BANK TEST ORDER VARGAS Final Result Performing Organization Address [facility] Co de Phone Number [facility] [place] [address] * (ABNORMAL) CRP (acute phase) (10/28/2024 10:05 PM POST PARTUM NURSE) Pathologist [facility] CRP 154.4(H) <=10.0 mg/L Blood 10/28/2024 10:0 5 PM POST PARTUM NURSE 10/28/2024 10:33 PM POST PARTUM NURSE Brandt Marquez MD LAB BLOOD ORDERABLES Fi nal Result Performing Organization Address [facility] de Phone Number [facility] [place] [address] * (ABNORMAL) Basic metabolic panel (10/28/2024 10:05 PM POST PARTUM NURSE) [facility] Sodium 140 135 - 145 mmol/L Potassium, pl 3.5 3.3 - 4.9 mmol/L [facility] Chloride 105 97 - 110 mmol/L [facility] CO2 26 22 - 32 mmol/L [facility] Anion gap 9 2 - 15 mmol/L [facility] BUN 33(H) 6 - 25 mg/dL [facility] Creatinine 1.17(H) 0.60 - 1.10 mg/dL [facility] Glucose 139 70 - 199 mg/dL [facility] Comment: Interpretive Data Fasting glucose [...] Calcium 9.4 8.5 - 10.3 mg/dL RADHA [facility] Blood 10/28/2024 10:0 5 PM POST PARTUM NURSE 10/28/2024 10:33 PM POST PARTUM NURSE Florentino Mcgowan MD LAB BLOOD ORDERABLES Karine l Result Performing Organization Address City/[facility] Co de Phone Number [facility] [place] [address] * (ABNORMAL) eGFR (10/28/2024 7:55 PM POST PARTUM NURSE) eGFR 47(L) >=60 mL/min/1. 73 m2 Comment: [...] last reviewed 2021. Blood 10/28/2024 7:55 PM POST PARTUM NURSE 10/28/2024 8:16 PM POST PARTUM NURSE Florentino Mcgowan MD LAB BLOOD ORDERABLES Karine l Result Performing Organization Address City/[facility] [facility]/ZIP Co de Phone Number [facility] [place] [address] * (ABNORMAL) Erythrocyte sedimentation rate (10/28/2024 7:55 PM POST PARTUM NURSE) [facility] Erythrocyte sedimentation rate 85(H) 1 - 30 mm/hr Blood 10/28/2024 7:55 PM POST PARTUM NURSE 10/28/2024 8:20 PM POST PARTUM NURSE us Brandt Marquez MD LAB BLOOD ORDERABLES Fi nal Result Performing Organization Address City/[facility]/ZIP Co de Phone Number [facility] [place] [address] * (ABNORMAL) CBC without differential (10/28/2024 7:55 PM POST PARTUM NURSE) [facility] WBC 9.8 3.8 - 9.9 K/cumm Hgb 10.7(L) 11.9 - 15.5 g/dL [facility] Hct 33.4(L) 35.6 - 45.5 % [facility] Plt 217 150 - 400 K/cumm [facility] MPV 11.2 9.1 - 12.3 fL [facility] RBC 3.82(L) 3.90 - 5.20 M/cumm [facility] MCV 87.4 81.3 - 96.4 fL [facility] MCH 28.0 27.1 - 33.3 pg [facility] MCHC 32.0(L) 32.3 - 35.7 g/dL [facility] RDW CV 16.9(H) 11.1 - 14.9 % [facility] RDW SD 54.1(H) 35.7 - 48.1 fL [facility] NRBC abs 0.00 0.00 - 0.01 K/cumm [facility] Blood 10/28/2024 7:55 PM POST PARTUM NURSE 10/28/2024 8:11 PM POST PARTUM NURSE us Florentino Mcgowan MD LAB BLOOD ORDERABLES Karine l Result Performing Organization Address City/[facility]/ZIP Co de Phone Number [facility] [place] [address] * (ABNORMAL) Basic metabolic panel (10/28/2024 7:55 PM POST PARTUM NURSE) Sodium 142 135 - 145 mmol/L Potassium, pl 4.0 3.3 - 4.9 mmol/L [facility] Chloride 103 97 - 110 mmol/L [facility] CO2 26 22 - 32 mmol/L [facility] Anion gap 13 2 - 15 mmol/L [facility] BUN 33(H) 6 - 25 mg/dL [facility] Creatinine 1.23(H) 0.60 - 1.10 mg/dL [facility] Glucose 107 70 - 199 mg/dL [facility] Comment: Interpretive Data Fasting glucose [...] 2022. Calcium 9.6 8.5 - 10.3 mg/dL [facility] Blood 10/28/2024 7:55 PM POST PARTUM NURSE 10/28/2024 8:11 PM POST PARTUM NURSE Florentino Mcgowan MD LAB BLOOD ORDERABLES Karine l Result [facility] Department [place] [address] * POCT glucose (10/28/2024 7:24 PM POST PARTUM NURSE) Glucose, POC 92 70 - 199 mg/dL Blood 10/28/2024 7:24 PM POST PARTUM NURSE 10/28/2024 7:24 PM POST PARTUM NURSE Florentino Mcgowan MD LAB POCT ORDERABLES - DEV ICE Final Result [facility] Department [place] [address] * XR Ankle Right 3 or More Views (10/28/2024 4:06 PM POST PARTUM NURSE) Anatomical Region Laterality Modality Lower Extremities, Ankle Right Compute d Radiography 10/28/2024 4:34 PM POST PARTUM NURSE Impressions 10/28/2024 4:38 PM POST PARTUM NURSE 1. Interval reduction and internal fixation of [...] Joseph Botello D.O. Narrative 10/28/2024 4:38 PM POST PARTUM NURSE EXAMINATION: XR ANKLE RIGHT 3 OR MORE [...] 3 or More Views (10/26/2024 4:22 PM POST PARTUM NURSE) Anatomical Region Laterality Modality Lower Extremities, Ankle Right Radiogr aphic Imaging Historical Provider IMG XR PROCEDURES Final R esult * US Thyroid (09/02/2024 1:54 PM POST PARTUM NURSE) Anatomical Region Laterality Modality Head and Neck N/A Ultrasound 09/02/2024 2:03 PM POST PARTUM NURSE Impressions 09/02/2024 2:08 PM POST PARTUM NURSE 1. Enlarged, heterogeneous thyroid. No thyroid nodule seen. Dictated by: Ria Owusu M.D. The radiology attending physician has personally reviewed this study, and had reviewed and/or edited this written report and agrees with it. Electronically signed by: Gala Lee M.D. Narrative 09/02/2024 2:08 PM POST PARTUM NURSE EXAMINATION: THYROID SONOGRAM HISTORY: Goiter seen on [...] Electronically signed by: Gala Lee M.D. Lu Lua DO IMG US PROCEDURES F inal Result * POCT glucose (09/02/2024 11:56 AM POST PARTUM NURSE) Glucose, POC 91 70 - 199 mg/dL Blood 09/02/2024 11:5 6 AM POST PARTUM NURSE 09/02/2024 11:56 AM POST PARTUM NURSE Lu Lua DO LAB POCT ORDERABLES - DEVICE Final Result [facility] [place] [address] * POCT glucose (09/02/2024 7:54 AM POST PARTUM NURSE) Glucose, POC 82 70 - 199 mg/dL Blood 09/02/2024 7:54 AM POST PARTUM NURSE 09/02/2024 7:54 AM POST PARTUM NURSE Lu Lua DO LAB POCT ORDERABLES - DEVICE Final Result Performing Organization Address [facility] de Phone Number RADHA [facility] [place] [address] * eGFR (09/01/2024 11:19 PM POST PARTUM NURSE) [facility] eGFR 61 >=60 mL/min/1. 73 m2 Comment: [...] reviewed 2021. Blood 09/01/2024 11:1 9 PM POST PARTUM NURSE 09/01/2024 11:48 PM POST PARTUM NURSE Lu Lua DO LAB BLOOD ORDERABLE S Final Result Performing Organization Address [facility] Co de Phone Number RADHA [facility] Department [place] [address] * (ABNORMAL) CBC without differential (09/01/2024 11:19 PM POST PARTUM NURSE) [facility] WBC 7.1 3.8 - 9.9 K/cumm Hgb 9.2(L) 11.9 - 15.5 g/dL [facility] Hct 30.0(L) 35.6 - 45.5 % [facility] Plt 170 150 - 400 K/cumm [facility] MPV 10.9 9.1 - 12.3 fL [facility] RBC 3.30(L) 3.90 - 5.20 M/cumm [facility] MCV 90.9 81.3 - 96.4 fL [facility] MCH 27.9 27.1 - 33.3 pg [facility] MCHC 30.7(L) 32.3 - 35.7 g/dL [facility] RDW CV 16.5(H) 11.1 - 14.9 % [facility] RDW SD 55.3(H) 35.7 - 48.1 fL [facility] NRBC abs 0.00 0.00 - 0.01 K/cumm [facility] Blood 09/01/2024 11:1 9 PM POST PARTUM NURSE 09/01/2024 11:48 PM POST PARTUM NURSE Lu [facility] LAB BLOOD ORDERABLE S Final Result Performing Organization Address [facility] de Phone Number [facility] Department [place] [address] * Magnesium (09/01/2024 11:19 PM POST PARTUM NURSE) [facility] Magnesium 2.5 1.4 - 2.5 mg/dL Blood 09/01/2024 11:1 9 PM POST PARTUM NURSE 09/01/2024 11:48 PM POST PARTUM NURSE [facility] LAB BLOOD ORDERABLE S Final Result [facility] Department [place] [address] * Basic metabolic panel (09/01/2024 11:19 PM POST PARTUM NURSE) Sodium 144 135 - 145 mmol/L Potassium, pl 4.3 3.3 - 4.9 mmol/L [facility] Chloride 110 97 - 110 mmol/L [facility] CO2 26 22 - 32 mmol/L [facility] Anion gap 8 2 - 15 mmol/L [facility] BUN 16 6 - 25 mg/dL [facility] Creatinine 0.99 0.60 - 1.10 mg/dL [facility] Glucose 83 70 - 199 mg/dL [facility] Comment: Interpretive Data Fasting glucose [...] 2022. Calcium 8.5 8.5 - 10.3 mg/dL [facility] Blood 09/01/2024 11:1 9 PM POST PARTUM NURSE 09/01/2024 11:48 PM POST PARTUM NURSE us Lu Lua DO LAB BLOOD ORDERABLE S Final Result RADHA [facility] [place] [address] * POCT glucose (09/01/2024 8:27 PM POST PARTUM NURSE) Glucose, POC 100 70 - 199 mg/dL Blood 09/01/2024 8:27 PM POST PARTUM NURSE 09/01/2024 8:27 PM POST PARTUM NURSE us Lu Lua DO LAB POCT ORDERABLES - DEVICE Final Result Performing Organization Address [facility] [place] [address] * POCT glucose (09/01/2024 5:07 PM POST PARTUM NURSE) Glucose, POC 92 70 - 199 mg/dL Blood 09/01/2024 5:07 PM POST PARTUM NURSE 09/01/2024 5:07 PM POST PARTUM NURSE Lu Damaris Lua DO LAB POCT ORDERABLES - DEVICE Final Result Performing Organization Address [facility] Co de Phone Number [facility] [place] [address] * POCT glucose (09/01/2024 4:49 PM POST PARTUM NURSE) Glucose, POC 77 70 - 199 mg/dL Blood 09/01/2024 4:49 PM POST PARTUM NURSE 09/01/2024 4:49 PM POST PARTUM NURSE Lu Lua DO LAB POCT ORDERABLES - DEVICE Final Result Performing Organization Address [facility] [place] [address] * MD AN PROCEDURE PLACEHOLDER (09/01/2024 1:53 PM POST PARTUM NURSE) Narrative Stephen Mitchell MD - 09/01/2024 1:53 PM POST PARTUM NURSE Mohamud Coates MD 09/01/2024 1:54 PM Peripheral [...] MD ANESTHESIA ORD ERABLES Final Result * MD AN PROCEDURE PLACEHOLDER (09/01/2024 1:53 PM POST PARTUM NURSE) Narrative Stephen Mitchell MD - 09/01/2024 1:53 PM POST PARTUM NURSE Mohamud Coates MD 09/01/2024 1:53 PM Peripheral [...] Result * POCT glucose (09/01/2024 10:49 AM POST PARTUM NURSE) Glucose, POC 110 70 - 199 mg/dL Blood 09/01/2024 10:4 9 AM POST PARTUM NURSE 09/01/2024 10:49 AM POST PARTUM NURSE Lu Damaris Lua DO LAB POCT ORDERABLES - DEVICE Final Result Performing Organization Address City/[facility] Co de Phone Number RADHA [facility] [place] [address] * FL Fluoroscopy < 1 Hour (09/01/2024 10:03 AM POST PARTUM NURSE) Narrative [email or web address] - 09/01/2024 10:03 AM POST PARTUM NURSE The images from this study are not interpreted by Radiology. Please refer to the physician's procedure / OR operative note. Florentino Mcgowan MD IMG FLUOROSCOPY PROCEDURE S Final Result Performing Organization Address [facility] Co de Phone Number [email or web address] * POCT glucose (09/01/2024 8:52 AM POST PARTUM NURSE) Glucose, POC 73 70 - 199 mg/dL Blood 09/01/2024 8:52 AM POST PARTUM NURSE 09/01/2024 8:52 AM POST PARTUM NURSE Lu Lua DO LAB POCT ORDERABLES - DEVICE Final Result Performing Organization Address [facility] Co de Phone Number RADHA [facility] [employer] [place] [address] * MD AN ELECTIVE ENDOTRACHEAL AIRWAY, MD AN PROCEDURE PLACEHOLDER (09/01/2024 8:13 AM POST PARTUM NURSE) Narrative Anita Milian CRNA - 09/01/2024 8:13 AM POST PARTUM NURSE Anita Milian CRNA 09/01/2024 8:16 AM Airway Patient location: OR Urgency: elective Indications for airway management: anesthesia Difficult airway: no Staff: Supervising provider: Selene Muñoz MD Placed by: CAR DROPPER: Anita Milian CRNA Emergent airway documentation: Risks [...] Result * POCT glucose (09/01/2024 6:19 AM POST PARTUM NURSE) Glucose, POC 79 70 - 199 mg/dL Blood 09/01/2024 6:19 AM POST PARTUM NURSE 09/01/2024 6:19 AM POST PARTUM NURSE Lu Lua DO LAB POCT ORDERABLES - DEVICE Final Result Performing Organization Address City/State/[facility] Co de Phone Number [facility] [place] [address] * CT Ankle Right WO Contrast (09/01/2024 5:25 AM POST PARTUM NURSE) Anatomical Region Laterality Modality Ankle Right Computed Tomogra phy 09/01/2024 6:08 AM POST PARTUM NURSE Impressions 09/01/2024 7:34 AM POST PARTUM NURSE Trimalleolar right ankle fracture dislocation status post [...] Memo Méndez M.D. Narrative 09/01/2024 7:34 AM POST PARTUM NURSE EXAMINATION: CT ANKLE RIGHT WO CONTRAST HISTORY: [...] Result * (ABNORMAL) eGFR (08/31/2024 11:09 PM POST PARTUM NURSE) eGFR 56(L) >=60 mL/min/1. 73 m2 Comment: [...] reviewed 2021. Blood 08/31/2024 11:0 9 PM POST PARTUM NURSE 08/31/2024 11:45 PM POST PARTUM NURSE Lu Lua DO LAB BLOOD ORDERABLE S Final Result RADHA [facility] [place] [address] * Protime-INR (08/31/2024 11:09 PM POST PARTUM NURSE) Pathologist [facility] PT 11.5 9.7 - 13.0 sec INR 1.06 0.90 - 1.20 [facility] Comment: Interpretive data Oral anticoagulant therapeutic ranges: Venous thromboembolism prophylaxis or treatment: 2.0-3.0 CARDIOLOGY Standard range: 2.0-3.0 High-intensity range: 2.5-3.5 Refer to indication-specific guidelines for appropriate target ranges for prosthetic heart valve replacement. Current interpretive data was last revised on 2019. Blood 08/31/2024 11:0 9 PM POST PARTUM NURSE 09/01/2024 12:21 AM POST PARTUM NURSE Lu Lua DO LAB BLOOD ORDERABLE S Final Result [facility] Department [place] [address] * (ABNORMAL) CBC without differential (08/31/2024 11:09 PM POST PARTUM NURSE) [facility] WBC 7.1 3.8 - 9.9 K/cumm Hgb 10.1(L) 11.9 - 15.5 g/dL [facility] Hct 32.7(L) 35.6 - 45.5 % [facility] Plt 162 150 - 400 K/cumm [facility] MPV 11.1 9.1 - 12.3 fL [facility] RBC 3.60(L) 3.90 - 5.20 M/cumm [facility] MCV 90.8 81.3 - 96.4 fL [facility] MCH 28.1 27.1 - 33.3 pg [facility] MCHC 30.9(L) 32.3 - 35.7 g/dL [facility] RDW CV 16.6(H) 11.1 - 14.9 % [facility] RDW SD 55.8(H) 35.7 - 48.1 fL [facility] NRBC abs 0.00 0.00 - 0.01 K/cumm [facility] Blood 08/31/2024 11:0 9 PM POST PARTUM NURSE 08/31/2024 11:45 PM POST PARTUM NURSE [facility] BLOOD ORDERABLE S Final Result Performing Organization Address City/[facility]/ZIP Co de Phone Number [facility] [place] [address] * Type and screen (08/31/2024 11:09 PM POST PARTUM NURSE) Pathologist [facility] ABO Rh A Positive Vivi, indirect Negative [facility] Blood 08/31/2024 11:0 9 PM POST PARTUM NURSE 08/31/2024 11:49 PM POST PARTUM NURSE Narrative [facility] - 09/01/2024 12:44 AM POST PARTUM NURSE Has the patient had Daratumumab or Isatuximab in the past 6 months?->Unknown [facility] BLOOD BANK TEST ORDERABLES Final Result Performing Organization Address [facility]/ZIP Co de Phone Number [facility] [place] [address] * Magnesium (08/31/2024 11:09 PM POST PARTUM NURSE) [facility] Magnesium 2.3 1.4 - 2.5 mg/dL Blood 08/31/2024 11:0 9 PM POST PARTUM NURSE 08/31/2024 11:45 PM POST PARTUM NURSE [facility] BLOOD ORDERABLE S Final Result Performing Organization Address City/[facility]/[place] [address] * Basic metabolic panel (08/31/2024 11:09 PM POST PARTUM NURSE) Pathologist [facility] Sodium 142 135 - 145 mmol/L Potassium, pl 4.1 3.3 - 4.9 mmol/L [facility] Chloride 108 97 - 110 mmol/L [facility] CO2 26 22 - 32 mmol/L [facility] Anion gap 8 2 - 15 mmol/L [facility] BUN 21 6 - 25 mg/dL [facility] Creatinine 1.06 0.60 - 1.10 mg/dL [facility] Glucose 93 70 - 199 mg/dL [facility] Comment: Interpretive Data Fasting glucose [...] 2022. Calcium 8.6 8.5 - 10.3 mg/dL [facility] Blood 08/31/2024 11:0 9 PM POST PARTUM NURSE 08/31/2024 11:45 PM POST PARTUM NURSE Lu Lua DO LAB BLOOD ORDERABLE S Final Result Performing Organization Address City/[facility]/ZIP Co de Phone Number [facility] [employer] [place] [address] * POCT glucose (08/31/2024 9:27 PM POST PARTUM NURSE) Glucose, POC 162 70 - 199 mg/dL Blood 08/31/2024 9:27 PM POST PARTUM NURSE 08/31/2024 9:27 PM POST PARTUM NURSE Lu Lua DO LAB POCT ORDERABLES - DEVICE Final Result Performing Organization Address City/[facility]/ZIP Co de Phone Number [facility] [place] [address] * POCT glucose (08/31/2024 5:03 PM POST PARTUM NURSE) Glucose, POC 123 70 - 199 mg/dL Blood 08/31/2024 5:03 PM POST PARTUM NURSE 08/31/2024 5:03 PM POST PARTUM NURSE Result [facility] Lu Lua DO LAB POCT ORDERABLES - DEVICE Final Result Performing Organization Address [facility] de Phone Number [facility] [place] [address] * POCT glucose (08/31/2024 11:49 AM POST PARTUM NURSE) Glucose, POC 97 70 - 199 mg/dL Blood 08/31/2024 11:4 9 AM POST PARTUM NURSE 08/31/2024 11:49 AM POST PARTUM NURSE Result [facility] Lu Lua DO [facility] POCT ORDERABLES - DEVICE Final Result Performing Organization Address [facility] de Phone Number [facility] [place] [address] * POCT glucose (08/31/2024 8:18 AM POST PARTUM NURSE) Glucose, POC 95 70 - 199 mg/dL Blood 08/31/2024 8:18 AM POST PARTUM NURSE 08/31/2024 8:18 AM POST PARTUM NURSE Result [facility] Lu Lua DO LAB POCT ORDERABLES - DEVICE Final Result Performing Organization Address [facility] de Phone Number [facility] [place] [address] * POCT glucose (08/31/2024 6:27 AM POST PARTUM NURSE) Glucose, POC 88 70 - 199 mg/dL Blood 08/31/2024 6:27 AM POST PARTUM NURSE 08/31/2024 6:27 AM POST PARTUM NURSE Result [facility] Lu [facility] LAB POCT ORDERABLES - DEVICE Final Result Performing Organization Address [facility] Co de Phone Number [facility] [place] [address] * (ABNORMAL) eGFR (08/30/2024 9:01 PM POST PARTUM NURSE) [facility] eGFR 45(L) >=60 mL/min/1. 73 m2 Comment: [...] last reviewed 2021. Blood 08/30/2024 9:01 PM POST PARTUM NURSE 08/30/2024 11:03 PM POST PARTUM NURSE Lu Damaris [facility] LAB BLOOD ORDERABLE S Final Result Performing Organization Address [facility] Co de Phone Number [facility] [place] [address] * (ABNORMAL) CBC without differential (08/30/2024 9:01 PM POST PARTUM NURSE) [facility] WBC 7.1 3.8 - 9.9 K/cumm Hgb 9.5(L) 11.9 - 15.5 g/dL [facility] Hct 30.2(L) 35.6 - 45.5 % [facility] Plt 152 150 - 400 K/cumm [facility] MPV 11.5 9.1 - 12.3 fL [facility] RBC 3.36(L) 3.90 - 5.20 M/cumm [facility] MCV 89.9 81.3 - 96.4 fL [facility] MCH 28.3 27.1 - 33.3 pg [facility] MCHC 31.5(L) 32.3 - 35.7 g/dL [facility] RDW CV 16.7(H) 11.1 - 14.9 % [facility] RDW SD 55.0(H) 35.7 - 48.1 fL [facility] NRBC abs 0.00 0.00 - 0.01 K/cumm [facility] Blood 08/30/2024 9:01 PM POST PARTUM NURSE 08/30/2024 11:06 PM POST PARTUM NURSE [facility] LAB BLOOD ORDERABLE S Final Result Performing Organization Address City/[facility]/ZIP Co de Phone Number [facility] [employer] [place] [address] * Magnesium (08/30/2024 9:01 PM POST PARTUM NURSE) [facility] Magnesium 2.5 1.4 - 2.5 mg/dL Blood 08/30/2024 9:01 PM POST PARTUM NURSE 08/30/2024 11:03 PM POST PARTUM NURSE [facility] BLOOD ORDERABLE S Final Result [facility] [employer] [place] [address] * (ABNORMAL) Basic metabolic panel (08/30/2024 9:01 PM POST PARTUM NURSE) [facility] Sodium 143 135 - 145 mmol/L Potassium, pl 4.1 3.3 - 4.9 mmol/L [facility] Chloride 109 97 - 110 mmol/L [facility] CO2 27 22 - 32 mmol/L [facility] Anion gap 7 2 - 15 mmol/L [facility] BUN 25 6 - 25 mg/dL [facility] Creatinine 1.27(H) 0.60 - 1.10 mg/dL [facility] Glucose 111 70 - 199 mg/dL [facility] Comment: Interpretive Data Fasting glucose [...] 2022. Calcium 8.8 8.5 - 10.3 mg/dL [facility] Blood 08/30/2024 9:01 PM POST PARTUM NURSE 08/30/2024 11:03 PM POST PARTUM NURSE Lu [facility] LAB BLOOD ORDERABLE S Final Result [facility] [place] [employer] [place] [address] * POCT glucose (08/30/2024 5:47 PM POST PARTUM NURSE) Glucose, POC 111 70 - 199 mg/dL Blood 08/30/2024 5:47 PM POST PARTUM NURSE 08/30/2024 5:47 PM POST PARTUM NURSE Lu Damaris [facility] LAB POCT ORDERABLES - DEVICE Final Result [facility] [place] [address] * POCT glucose (08/30/2024 3:50 PM POST PARTUM NURSE) Glucose, POC 130 70 - 199 mg/dL Blood 08/30/2024 3:50 PM POST PARTUM NURSE 08/30/2024 3:50 PM POST PARTUM NURSE Lu Lua DO LAB POCT ORDERABLES - DEVICE Final Result Performing Organization Address [facility] [place] [address] * POCT glucose (08/30/2024 11:31 AM POST PARTUM NURSE) Glucose, POC 123 70 - 199 mg/dL Blood 08/30/2024 11:3 1 AM POST PARTUM NURSE 08/30/2024 11:31 AM POST PARTUM NURSE Lu Damaris Lua DO LAB POCT ORDERABLES - DEVICE Final Result Performing Organization Address [facility] [place] [address] * POCT glucose (08/30/2024 8:21 AM POST PARTUM NURSE) Glucose, POC 98 70 - 199 mg/dL Blood 08/30/2024 8:21 AM POST PARTUM NURSE 08/30/2024 8:21 AM POST PARTUM NURSE Result [facility] Lu Cummingsagapitoestevan DO LAB POCT ORDERABLES - DEVICE Final Result Performing Organization Address [facility] [place] [address] * Critical Care (08/30/2024 7:38 AM POST PARTUM NURSE) Narrative Fabien Jones MD - 08/30/2024 7:38 AM POST PARTUM NURSE Fabien Jones MD 08/30/2024 7:40 AM Critical [...] patient with consultants and the medical staff. us Fabien Jones MD IN CLINIC/BEDSIDE ORD ERABLES Final Result * (ABNORMAL) eGFR (08/29/2024 10:44 PM POST PARTUM NURSE) eGFR 49(L) >=60 mL/min/1. 73 m2 Comment: [...] reviewed 2021. Blood 08/29/2024 10:4 4 PM POST PARTUM NURSE 08/29/2024 11:51 PM POST PARTUM NURSE us Adina Zaldivar [employer]PER[employer] LAB BLOOD ORDERABLES Fi nal Result [facility] [place] [address] * Thyroid Function [place] (08/29/2024 10:44 PM POST PARTUM NURSE) [facility] TSH 2.56 0.30 - 4.20 mcIUnit/mL Blood 08/29/2024 10:4 4 PM POST PARTUM NURSE 08/29/2024 11:51 PM POST PARTUM NURSE Lu Lua DO LAB BLOOD ORDERABLE S Final Result Performing Organization Address City/[facility] Co de Phone Number [facility] [place] [address] * (ABNORMAL) CBC without differential (08/29/2024 10:44 PM POST PARTUM NURSE) [facility] WBC 8.6 3.8 - 9.9 K/cumm Hgb 10.5(L) 11.9 - 15.5 g/dL [facility] Hct 33.6(L) 35.6 - 45.5 % [facility] Plt 165 150 - 400 K/cumm [facility] MPV 11.1 9.1 - 12.3 fL [facility] RBC 3.67(L) 3.90 - 5.20 M/cumm [facility] MCV 91.6 81.3 - 96.4 fL [facility] MCH 28.6 27.1 - 33.3 pg [facility] MCHC 31.3(L) 32.3 - 35.7 g/dL [facility] RDW CV 16.5(H) 11.1 - 14.9 % [facility] RDW SD 55.8(H) 35.7 - 48.1 fL [facility] NRBC abs 0.00 0.00 - 0.01 K/cumm [facility] Blood 08/29/2024 10:4 4 PM POST PARTUM NURSE 08/29/2024 11:51 PM POST PARTUM NURSE Lu Lua DO LAB BLOOD ORDERABLE S Final Result [facility] Department [place] [address] * Magnesium (08/29/2024 10:44 PM POST PARTUM NURSE) Pathologist [facility] Magnesium 2.5 1.4 - 2.5 mg/dL Blood 08/29/2024 10:4 4 PM POST PARTUM NURSE 08/29/2024 11:51 PM POST PARTUM NURSE [facility]LOOD ORDERABLE S Final Result Performing Organization Address [facility] Co de Phone Number [facility] Department [place] [address] * (ABNORMAL) Basic metabolic panel (08/29/2024 10:44 PM POST PARTUM NURSE) [facility] Sodium 141 135 - 145 mmol/L Potassium, pl 4.0 3.3 - 4.9 mmol/L [facility] Chloride 105 97 - 110 mmol/L [facility] CO2 29 22 - 32 mmol/L [facility] Anion gap 7 2 - 15 mmol/L [facility] BUN 24 6 - 25 mg/dL [facility] Creatinine 1.18(H) 0.60 - 1.10 mg/dL [facility] Glucose 103 70 - 199 mg/dL [facility] Comment: Interpretive Data Fasting glucose [...] 2022. Calcium 9.3 8.5 - 10.3 mg/dL [facility] Blood 08/29/2024 10:4 4 PM POST PARTUM NURSE 08/29/2024 11:51 PM POST PARTUM NURSE Lu Damaris Kiagapitoestevan DO LAB BLOOD ORDERABLE S Final Result Performing Organization Address [facility] de Phone Number [facility] [place] [address] * POCT glucose (08/29/2024 7:29 PM POST PARTUM NURSE) Glucose, POC 139 70 - 199 mg/dL Blood 08/29/2024 7:29 PM POST PARTUM NURSE 08/29/2024 7:29 PM POST PARTUM NURSE Lu Damaris Villanuevaestevan LAB POCT ORDERABLES - DEVICE Final Result Performing Organization Address [facility] Phone Number [facility] [place] [address] * POCT glucose (08/29/2024 5:21 PM POST PARTUM NURSE) Glucose, POC 104 70 - 199 mg/dL Blood 08/29/2024 5:21 PM POST PARTUM NURSE 08/29/2024 5:21 PM POST PARTUM NURSE Result [facility] Lu Damaris Lua LAB POCT ORDERABLES - DEVICE Final Result Performing Organization Address [facility] de Phone Number [facility] [place] [address] * POCT glucose (08/29/2024 5:08 PM POST PARTUM NURSE) Glucose, POC 95 70 - 199 mg/dL Blood 08/29/2024 5:08 PM POST PARTUM NURSE 08/29/2024 5:08 PM POST PARTUM NURSE Lu Damaris Emilianoagapitoestevan LAB POCT ORDERABLES - DEVICE Final Result Performing Organization Address [facility]/ZIP Co de Phone Number [facility] Department [place] [address] * POCT glucose (08/29/2024 11:49 AM POST PARTUM NURSE) Glucose, POC 94 70 - 199 mg/dL Blood 08/29/2024 11:4 9 AM POST PARTUM NURSE 08/29/2024 11:49 AM POST PARTUM NURSE Lu Damaris Lua DO LAB POCT ORDERABLES - DEVICE Final Result Performing Organization Address [facility] [place] [address] * FL Fluoroscopy < 1 Hour (08/29/2024 11:39 AM POST PARTUM NURSE) Narrative [facility] - 08/29/2024 11:39 AM POST PARTUM NURSE The images from this study are not interpreted by Radiology. Please refer to the physician's procedure / OR operative note. Harjinder Obrien MD IMG FLUOROSCOPY MD OCEDURES Final Result Performing Organization Address [facility] Co de Phone Number [email or web address] * POCT glucose (08/29/2024 11:09 AM POST PARTUM NURSE) Glucose, POC 121 70 - 199 mg/dL Blood 08/29/2024 11:0 9 AM POST PARTUM NURSE 08/29/2024 11:09 AM POST PARTUM NURSE Lu Lua DO LAB POCT ORDERABLES - DEVICE Final Result Performing Organization Address [facility] Co de Phone Number [facility] [place] [address] * MD AN ELECTIVE ENDOTRACHEAL AIRWAY, MD AN PROCEDURE PLACEHOLDER (08/29/2024 11:01 AM POST PARTUM NURSE) Narrative Selene Muñoz MD - 08/29/2024 11:01 AM POST PARTUM NURSE Selene Muñoz MD 08/29/2024 11:44 AM Airway Patient location: OR Urgency: elective Indications for airway management: anesthesia Difficult airway: no Staff: Supervising provider: Selene Muñoz MD Placed by: CAR DROPPER: Juno Hart III, CRNA Emergent airway documentation: [...] Final * POCT glucose (08/29/2024 10:31 AM POST PARTUM NURSE) Glucose, POC 109 70 - 199 mg/dL Blood 08/29/2024 10:3 1 AM POST PARTUM NURSE 08/29/2024 10:31 AM POST PARTUM NURSE Lu Lua DO LAB POCT ORDERABLES - DEVICE Final Result [facility] Department [place] [address] * MD AN PROCEDURE PLACEHOLDER (08/29/2024 10:02 AM POST PARTUM NURSE) Narrative Dov Altamirano MD - 08/29/2024 10:02 AM POST PARTUM NURSE Len Bingham MD PhD 08/29/2024 10:03 AM [...] PhD ANESTHESIA ORDERABLES Final Re sult * MD AN PROCEDURE PLACEHOLDER (08/29/2024 10:01 AM [facility]) Narrative Dov Altamirano MD - 08/29/2024 10:01 AM [facility] Len Bingham MD PhD 08/29/2024 10:01 AM [...] Cervical Spine WO Contrast (08/29/2024 8:58 AM POST PARTUM NURSE) Anatomical Region Laterality Modality Head and Neck N/A Computed Tomogra phy 08/29/2024 9:33 AM POST PARTUM NURSE Impressions 08/29/2024 9:49 AM POST PARTUM NURSE 1. No acute intracranial hemorrhage, territorial hypoattenuation, hydrocephalus or herniation.. 2. No evidence of acute fracture in the cervical spine. 3. Large multinodular goiter. Dictated by: Zafar Dougherty MD The radiology attending physician has personally reviewed this study, and had reviewed and/or edited this written report and agrees with it. Electronically signed by: Hiram Ash M.D, PHD Narrative 08/29/2024 9:49 AM POST PARTUM NURSE EXAMINATION: 1. CT head without contrast 2. [...] Electronically signed by: Hiram Ash M.D, PHD Adina Zaldivar NP IMG CT PROCEDURES Final Result * POCT glucose (08/29/2024 8:33 AM POST PARTUM NURSE) [facility] Glucose, POC 112 70 - 199 mg/dL Blood 08/29/2024 8:33 AM POST PARTUM NURSE 08/29/2024 8:33 AM POST PARTUM NURSE [facility] DO LAB POCT ORDERABLES - DEVICE Final Result Performing Organization Address [facility] Phone Number [facility] [place] [address] * POCT glucose (08/29/2024 3:57 AM POST PARTUM NURSE) [facility] Glucose, POC 125 70 - 199 mg/dL Blood 08/29/2024 3:57 AM POST PARTUM NURSE 08/29/2024 3:57 AM POST PARTUM NURSE [facility] LAB POCT ORDERABLES - DEVICE Final Result Performing Organization Address [facility] de Phone Number [facility] [place] [address] * ECG 12-LEAD (08/28/2024 10:00 PM POST PARTUM NURSE) Narrative [facility] - 08/28/2024 10:00 PM POST PARTUM NURSE Ritu Hussein MD 08/28/2024 10:01 PM ECG 12 lead Date/Time: 08/28/2024 10:00 PM Performed by: Ritu Hussein MD Authorized by: Andres Colon Jr., MD Rate: ECG rate: 90 ECG rate assessment: normal Comments: Rate of 90, sinus rhythm, first-degree AV block, nonspecific ST abnormalities, no STEMI,, otherwise normal intervals. Andres Colon Jr., MD ECG ORDERABLES Final Result Performing Organization Address [facility] de Phone Number [facility] * eGFR (08/28/2024 9:43 PM POST PARTUM NURSE) [facility] eGFR 69 >=60 mL/min/1. 73 m2 Comment: [...] last reviewed 2021. Blood 08/28/2024 9:43 PM POST PARTUM NURSE 08/28/2024 9:57 PM POST PARTUM NURSE Andres Colon Jr., MD LAB BLOOD ORDERABLES F inal Result [facility] Department [place] [address] * (ABNORMAL) Differential, auto (08/28/2024 9:43 PM POST PARTUM NURSE) Neutrophil abs 6.6(H) 1.5 - 6.5 K/cumm Imm gran abs 0.0 0.0 - 0.1 K/cumm [facility] Lymphocyte abs 1.0 0.8 - 3.3 K/cumm [facility] Monocyte abs 0.2 0.2 - 0.8 K/cumm [facility] Eosinophil abs 0.0 0.0 - 0.5 K/cumm [facility] Basophil abs 0.0 0.0 - 0.1 K/cumm [facility] Neutrophil pct 83.5 % [facility] Comment: Interpretive Data Percent cell count reference ranges are not reported, since discordance with absolute values may lead to misinterpretation of CBC data. Current Interpretive Data was last revised on 2018. Imm gran pct 0.5 % [facility] Comment: Interpretive Data Percent cell count reference ranges are not reported, since discordance with absolute values may lead to misinterpretation of CBC data. Current Interpretive Data was last revised on 2018. Lymphocyte pct 13.0 % [facility] Comment: Interpretive Data Percent cell count reference ranges are not reported, since discordance with absolute values may lead to misinterpretation of CBC data. Current Interpretive Data was last revised on 2018. Monocyte pct 2.9 % [facility] Comment: Interpretive Data Percent cell count reference ranges are not reported, since discordance with absolute values may lead to misinterpretation of CBC data. Current Interpretive Data was last revised on 2018. Eosinophil pct 0.0 % [facility] Comment: Interpretive Data Percent cell count reference ranges are not reported, since discordance with absolute values may lead to misinterpretation of CBC data. Current Interpretive Data was last revised on 2018. Basophil pct 0.1 % [facility] Comment: Interpretive Data Percent cell count reference ranges are not reported, since discordance with absolute values may lead to misinterpretation of CBC data. Current Interpretive Data was last revised on 2018. Blood 08/28/2024 9:43 PM POST PARTUM NURSE 08/28/2024 9:57 PM POST PARTUM NURSE Andres Colon Jr., MD LAB BLOOD ORDERABLES F inal Result [facility] Department [place] [address] * (ABNORMAL) CBC with auto differential (08/28/2024 9:43 PM POST PARTUM NURSE) WBC 7.9 3.8 - 9.9 K/cumm Hgb 11.9 11.9 - 15.5 g/dL [facility] Hct 37.6 35.6 - 45.5 % [facility] Plt 184 150 - 400 K/cumm [facility] MPV 10.9 9.1 - 12.3 fL [facility] RBC 4.23 3.90 - 5.20 M/cumm [facility] MCV 88.9 81.3 - 96.4 fL [facility] MCH 28.1 27.1 - 33.3 pg [facility] MCHC 31.6(L) 32.3 - 35.7 g/dL [facility] RDW CV 16.0(H) 11.1 - 14.9 % [facility] RDW SD 52.4(H) 35.7 - 48.1 fL [facility] NRBC abs 0.00 0.00 - 0.01 K/cumm [facility] Blood 08/28/2024 9:43 PM POST PARTUM NURSE 08/28/2024 9:57 PM POST PARTUM NURSE Andres Colon Jr., MD LAB BLOOD ORDERABLES F inal Result Performing Organization Address [facility] de Phone Number [facility] [place] [address] * (ABNORMAL) aPTT (08/28/2024 9:43 PM POST PARTUM NURSE) aPTT 27(L) 28 - 38 sec Comment: Interpretive Data Heparin therapeutic range: 66.0 - 100.0 seconds. Range based on correlation with therapeutic heparin activity range of 0.3 - 0.7 Units/mL. Current interpretive data was last revised on 2023. Blood 08/28/2024 9:43 PM POST PARTUM NURSE 08/28/2024 10:02 PM POST PARTUM NURSE Andres Colon Jr., MD LAB BLOOD ORDERABLES F inal Result Performing Organization Address [facility] de Phone Number [facility] [place] [address] * Protime-INR (08/28/2024 9:43 PM POST PARTUM NURSE) PT 12.6 9.7 - 13.0 sec INR 1.16 0.90 - 1.20 [facility] Comment: Interpretive data Oral anticoagulant therapeutic ranges: Venous thromboembolism prophylaxis or treatment: 2.0-3.0 CARDIOLOGY Standard range: 2.0-3.0 High-intensity range: 2.5-3.5 Refer to indication-specific guidelines for appropriate target ranges for prosthetic heart valve replacement. Current interpretive data was last revised on 2019. Blood 08/28/2024 9:43 PM POST PARTUM NURSE 08/28/2024 10:02 PM POST PARTUM NURSE Andres Colon Jr., MD LAB BLOOD ORDERABLES F inal Result [facility] Department [place] [address] * Lipid panel (08/28/2024 9:43 PM POST PARTUM NURSE) Cholesterol 160 30 - 199 mg/dL Comment: [...] revised on 2018. Triglycerides 51 <=149 mg/dL [facility] Comment: Interpretive Data Ages < or = [...] on 2018. HDL 75 >=40 mg/dL [facility] Comment: Interpretive Data Ages < or = [...] 2018. LDL, calculated 74 <=129 mg/dL [facility] Comment: Interpretive Data Ages < or = [...] 3. Mike Guerra et al. CHARLES Cardiol. 2020 January 22;5(5):540-548. doi: [email or web address] Current Interpretive Data was last revised on 2024. Non-HDL Cholesterol 85 mg/dL [facility] Comment: Interpretive Data Ages < or = [...] last revised on 2018. Chol/HDL ratio 2 [facility] Blood 08/28/2024 9:43 PM POST PARTUM NURSE 08/28/2024 9:57 PM POST PARTUM NURSE us Lu Damaris Lua DO LAB BLOOD ORDERABLE S Final Result [facility] Department [place] [address] * Comprehensive metabolic panel (08/28/2024 9:43 PM POST PARTUM NURSE) Pathologist [facility] Sodium 142 135 - 145 mmol/L Potassium, pl 4.2 3.3 - 4.9 mmol/L [facility] Chloride 104 97 - 110 mmol/L [facility] CO2 26 22 - 32 mmol/L [facility] Anion gap 12 2 - 15 mmol/L [facility] BUN 20 6 - 25 mg/dL [facility] Creatinine 0.89 0.60 - 1.10 mg/dL [facility] Glucose 153 70 - 199 mg/dL [facility] Comment: Interpretive Data Fasting glucose [...] 2022. Calcium 9.6 8.5 - 10.3 mg/dL [facility] Bilirubin, total 0.4 0.1 - 1.2 mg/dL [facility] Protein, pl 8.2 6.5 - 8.5 g/dL [facility] Albumin 4.5 3.5 - 5.0 g/dL [facility] Alk phos 55 40 - 130 Units/L [facility] ALT 17 7 - 45 Units/L [facility] AST 33 10 - 45 Units/L [facility] Blood 08/28/2024 9:43 PM POST PARTUM NURSE 08/28/2024 9:57 PM POST PARTUM NURSE us Andres Colon Jr., MD LAB BLOOD ORDERABLES F inal Result [facility] Department [place] [address] * Procedural Sedation (08/28/2024 9:11 PM POST PARTUM NURSE) Narrative Tawanda Bah MD - 08/28/2024 9:11 PM POST PARTUM NURSE Andres Colon Jr., MD 08/28/2024 9:13 PM Procedural Sedation Date/Time: 08/28/2024 9:11 PM Performed by: Andres Colon Jr., MD Authorized by: Tawanda Bah MD [place] Protocol: RN Notified of Procedure: yes Informed consent: Risks, benefits, alternatives discussed and patient/field marketing representative/guardian agrees and accepts Patient's stated name/ [...] and propofol Intra-procedure monitoring: Blood pressure monitoring, cardiac/vascular sonographer, continuous capnometry, continuous pulse oximetry, frequent vital [...] 3 or More Views (08/28/2024 8:10 PM POST PARTUM NURSE) Anatomical Region Laterality Modality Lower Extremities, Ankle Right Compute d Radiography 08/28/2024 8:17 PM POST PARTUM NURSE Impressions 08/28/2024 8:32 PM POST PARTUM NURSE Nonweightbearing radiographs of the ankle are submitted [...] Hussain Ibrahim M.D. Narrative 08/28/2024 8:32 PM POST PARTUM NURSE EXAMINATION: XR ANKLE RIGHT 3 OR MORE [...] Result * Check Sample (08/28/2024 5:48 PM POST PARTUM NURSE) ABO Rh A Positive [facility] HCLL OTHER 08/28/2024 5:48 PM POST PARTUM NURSE 08/28/2024 5:56 PM POST PARTUM NURSE us Notinfile Unknown LAB BLOOD ORDERABLES Final Res ult [facility] Department [place] [address] [facility] * XR Femur Right 2 or More Views (08/28/2024 4:50 PM POST PARTUM NURSE) Anatomical Region Laterality Modality Lower Extremities, Thigh, Femur Right Computed Radiography 08/28/2024 5:08 PM POST PARTUM NURSE Impressions 08/28/2024 5:26 PM POST PARTUM NURSE 1. No radiographic evidence of acute fracture in the thoracic spine. 2. No acute fracture in the right femur or knee. Dictated by: No Palma M.D. The radiology attending physician has personally reviewed this study, and had reviewed and/or edited this written report and agrees with it. Electronically signed by: Hussain Ibrahim M.D. Narrative 08/28/2024 5:26 PM POST PARTUM NURSE EXAMINATION: XR KNEE RIGHT 1 OR 2 [...] 4 Or More Views (08/28/2024 4:50 PM POST PARTUM NURSE) Anatomical Region Laterality Modality Spine N/A Computed Radiogr aphy 08/28/2024 5:08 PM POST PARTUM NURSE Impressions 08/28/2024 5:26 PM POST PARTUM NURSE 1. No radiographic evidence of acute fracture in the thoracic spine. 2. No acute fracture in the right femur or knee. Dictated by: No Palma M.D. The radiology attending physician has personally reviewed this study, and had reviewed and/or edited this written report and agrees with it. Electronically signed by: Hussain Ibrahim M.D. Narrative 08/28/2024 5:26 PM POST PARTUM NURSE EXAMINATION: XR KNEE RIGHT 1 OR 2 [...] 1 or 2 Views (08/28/2024 4:49 PM POST PARTUM NURSE) Anatomical Region Laterality Modality Lower Extremities, Knee Right Computed Radiography 08/28/2024 5:08 PM POST PARTUM NURSE Impressions 08/28/2024 5:26 PM POST PARTUM NURSE 1. No radiographic evidence of acute fracture in the thoracic spine. 2. No acute fracture in the right femur or knee. Dictated by: No Palma M.D. The radiology attending physician has personally reviewed this study, and had reviewed and/or edited this written report and agrees with it. Electronically signed by: Hussain Ibrahim M.D. Narrative 08/28/2024 5:26 PM POST PARTUM NURSE EXAMINATION: XR KNEE RIGHT 1 OR 2 [...] signed by: Hussain Ibrahim M.D. Annie Higuera SUPERVISOR PARTIAL DENTURE DEPARTMENT IMG XR PROCEDURES Final Result * XR Pelvis 1 or 2 Views (08/28/2024 3:57 PM POST PARTUM NURSE) Anatomical Region Laterality Modality Body, Pelvis N/A Computed Radiogr aphy 08/28/2024 4:39 PM POST PARTUM NURSE Impressions 08/28/2024 5:25 PM POST PARTUM NURSE 1. Casted right ankle trimalleolar fracture with posterior dislocation of the tibiotalar joint, new from same day CT scan. 2. No acute fracture of the pelvis. Dictated by: No Palma M.D. The radiology attending physician has personally reviewed this study, and had reviewed and/or edited this written report and agrees with it. Electronically signed by: Hussain Ibrahim M.D. Narrative 08/28/2024 5:25 PM POST PARTUM NURSE EXAMINATION: XR PELVIS 1 OR 2 VIEWS, [...] Fibula Right 2 Views (08/28/2024 3:57 PM POST PARTUM NURSE) Anatomical Region Laterality Modality Lower Extremities, Lower Leg Right Com puted Radiography 08/28/2024 4:39 PM POST PARTUM NURSE Impressions 08/28/2024 5:25 PM POST PARTUM NURSE 1. Casted right ankle trimalleolar fracture with posterior dislocation of the tibiotalar joint, new from same day CT scan. 2. No acute fracture of the pelvis. Dictated by: No Palma M.D. The radiology attending physician has personally reviewed this study, and had reviewed and/or edited this written report and agrees with it. Electronically signed by: Hussain Ibrahim M.D. Narrative 08/28/2024 5:25 PM POST PARTUM NURSE EXAMINATION: XR PELVIS 1 OR 2 VIEWS, [...] CT Body Outside Consult (08/28/2024 3:42 PM POST PARTUM NURSE) Anatomical Region Laterality Modality Body N/A Computed Tomogra phy 08/28/2024 4:44 PM POST PARTUM NURSE Impressions 08/28/2024 6:14 PM POST PARTUM NURSE 1. Right lower extremity: 3 vessel runoff [...] images may or may not represent the wrangell source data set and thus may contain changes that may lower the accuracy of this second-opinion interpretation. Dictated by: No Palma M.D. The radiology attending physician has personally reviewed this study, and had reviewed and/or edited this written report and agrees with it. Electronically signed by: Hussain Ibrahim M.D. Narrative 08/28/2024 6:14 PM POST PARTUM NURSE EXAMINATION: RADIOLOGY CONSULTATION ON OUTSIDE IMAGING STUDY STUDY INITIALLY PERFORMED: 08/28/2024 at [facility]. TYPE OF STUDY: CT ANGIOGRAPHY OF THE [...] IMAGING STUDY STUDY INITIALLY PERFORMED: 08/28/2024 at [facility]. TYPE OF STUDY: CT ANGIOGRAPHY OF THE [...] images may or may not represent the wrangell source data set and thus may contain changes that may lower the accuracy of this second-opinion interpretation. Dictated by: No Palma M.D. The radiology attending physician has personally reviewed this study, and had reviewed and/or edited this written report and agrees with it. Electronically signed by: Hussain Ibrahim M.D. Andres Colon Jr., MD Matthew CT PROCEDURES Karine l Result * XR Outside Reference (08/28/2024 3:40 PM POST PARTUM NURSE) Impressions [facility] - 08/28/2024 3:40 PM POST PARTUM NURSE These images are for Reference purposes only and have not been reviewed by [facility] Radiology. There will be no report generated by a [facility] Radiologist. Narrative [facility] - 08/28/2024 3:40 PM POST PARTUM NURSE EXAMINATION: Images For Reference Purposes Only Andres Colon Jr., MD IMG XR PROCEDURES Karine l Result Performing Organization Address [facility] de Phone Number [facility] * XR Outside Reference (08/28/2024 3:39 PM POST PARTUM NURSE) Impressions [facility] - 08/28/2024 3:39 PM POST PARTUM NURSE These images are for Reference purposes only and have not been reviewed by [facility] Radiology. There will be no report generated by a [facility] Radiologist. Narrative [facility] - 08/28/2024 3:39 PM POST PARTUM NURSE EXAMINATION: Images For Reference Purposes Only Andres Colon Jr., MD IMG XR PROCEDURES Karine l Result Performing Organization Address [facility] de Phone Number [facility] * XR Outside Reference (08/28/2024 3:30 PM POST PARTUM NURSE) Impressions [facility] - 08/28/2024 3:30 PM POST PARTUM NURSE These images are for Reference purposes only and have not been reviewed by [facility]. There will be no report generated by a [facility] Radiologist. Narrative [facility] - 08/28/2024 3:30 PM POST PARTUM NURSE EXAMINATION: Images For Reference Purposes Only Result [facility] Andres Colon Jr., MD IMG XR PROCEDURES Karine l Result Performing Organization Address [facility] de Phone Number [facility] * Type and screen (08/28/2024 3:29 PM POST PARTUM NURSE) ABO Rh A Positive Vivi, indirect Negative [facility] Blood 08/28/2024 3:29 PM POST PARTUM NURSE 08/28/2024 3:56 PM POST PARTUM NURSE Narrative [facility] - 08/28/2024 5:01 PM POST PARTUM NURSE Has the patient had Daratumumab or Isatuximab in the past 6 months?->Unknown Andres Colon Jr., MD LAB BLOOD BANK TEST OR DERABLES Final Result [facility] Department [place] [address] * POCT glucose (08/28/2024 3:23 PM POST PARTUM NURSE) Glucose, POC 118 70 - 199 mg/dL Blood 08/28/2024 3:23 PM POST PARTUM NURSE 08/28/2024 3:23 PM POST PARTUM NURSE us Notinfile Unknown LAB POCT ORDERABLES - DEVICE F inal Result [facility] Department [place] [address] * Colonoscopy (07/22/2024 10:32 AM CDT) Anatomical Region Laterality Modality Other Narrative Procedure Note Piero Nieves MD - 07/22/2024 10:[address] [facility] Lab Patient Name: Rylee Snell Procedure Date: 07/22/2024 10:32AM Date of : 1950 Admit Type: Outpatient Age: 73 Gender: Female Note Status: Finalized Attending MD: Piero Nieves M.D. Procedure Date: 07/22/2024 Procedure: Colonoscopy Indications: Screening for colorectal malignant neoplasm Providers: Piero Nieves M.D., KEVIN Deutsch (Anesthesia Staff), Rimma Medina RN, Marya Mcknight, Director Of Transportation Referring MD: Aaron Camargo M.D. Medicines: Monitored [...] bowel preparation was evaluated using the BBPS ([place] Bowel Preparation Scale)with scores of: Right Colon [...] polyp removal. Procedure Code(s): --- Professional --- 97053, Colonoscopy, flexible; with endoscopicmucosal resection 93509, 59, Colonoscopy, flexible; with biopsy,single or multiple Diagnosis Code(s): --- Professional --- D12.3, Benign neoplasm of transverse colon (hepatic flexure or splenic flexure) Z12.11, Encounter for screening for malignantneoplasm of colon K64.4, Residual hemorrhoidal skin tags CPT copyright 2020 [employer]. All rights reserved. The codes documented in this report are preliminary and upon job training supervisor reviewmay be revised to meet current compliance requirements. Piero Nieves M.D. 07/22/2024 11:20:31 AM Number of Addenda: 0 Note Initiated On: 07/22/2024 10:32 AM Piero Nieves MD ENDOSCOPY PROCEDURES Edit ed Result - Final * DIABETES EYE EXAM (04/02/2024 2:30 PM CDT) SCRIBED DIABETIC DILATED EYE EXAM Comment:No Diabetic Retinopa thy Historical Provider HEALTH MAINTENANCE Final Result * Albumin Creatinine Ratio, Urine (03/05/2024 11:18 AM CDT) Pathologist [facility] Albumin Ur 41.4 mg/L Comment: Interpretive Data No reference range established. Current interpretive data was last revised 2019. Creatinine Ur 438.0 mg/dL [facility] Comment: Interpretive Data No reference range established. Current interpretive data was last revised 2019. Albumin Creatinine Ratio, Ur 9 1 - 29 mg/g [facility] Urine 03/05/2024 11:1 8 AM CDT 03/05/2024 2:07 PM CDT Result [facility] Aaron Camargo MD LAB URINE ORDERABLES Final Result [facility] [address] [facility] Department of Laboratories [place], [place] [id number] * (ABNORMAL) Hemoglobin A1c (03/05/2024 11:18 AM CDT) Pathologist [facility] Hgb A1C 6.7(H) 4.0 - 5.6 % Estimated Average Glucose 146 mg/dL [facility] Comment: The ADA recommends reporting an estimated Average Glucose (eAG) with all Hemoglobin A1c results using the equation derived from a study of 507 normal and diabetic adults. Minority populations were underrepresented and children were not included. (Diabetes Care 31:1674-8312, 2008). The eAG is not equivalent to a fasting glucose. Blood 03/05/2024 11:1 8 AM CDT 03/05/2024 2:07 PM CDT Aaron Camargo MD LAB BLOOD ORDERABLES Final Result Performing Organization Address City/[place] [address] [place] Department [place] [address] from Last 3 Months or Most Recently Relevant to Health Maintenance Insurance [employer] Advance Directives For more information, please contact: [phone] * Full Code (Latest Code Status on File) Date Activated Date Inactivated Comments 10/28/2024 6:50 PM 11/05/2024 7:53 PM * Full Code Date Activated Date Inactivated Comments 08/29/2024 3:16 AM 09/02/2024 11:09 PM * Full Code Date Activated Date Inactivated Comments 11/14/2023 10:48 PM 11/17/2023 6:34 PM Care Teams Commodity Supervisor Relationship Specialty Start Date End Date Aaron Camargo MD [address] [facility] [address] [place] [address] PCP - General Family Medicine 02/05/24 Geneva Stacy RN [address] [place] [address] [address] [place] [address] Finished Metal Repairer 09/03/24 Florentino Mcgowan MD [address] [facility] [address] [place] [address] Consulting Physician Orthopedic Surgery 10/08/24 Juan Jose Caldwell MD [address] [place] [address] Consulting Physician Infectious Diseases 11/02/24
--- OUTSIDE RECORDS SUMMARY | 2024-11-10 17:37 | XMS_ITS | Encounter Summary ---
Author Organization [facility] Healthcare Address [address] [place] [address] Care Team Providers Care Advertising Clerk Name Role Phone Aaron Camargo MD Primary Care Provider Geneva Stacy RN Unavailable Florentino Mcgowan MD Unavailable Juan Jose Caldwell MD Unavailable Reason for Visit * Reason Onset Date Comments Medical Question/Miscellaneous 10/09/2024 Encounter Details Date Type Department Care Team (Late st Contact Info) Description 10/09/2024 Telephone [facility] Medical Group Primary Care at [address] [id number] Aaron Camargo MD [address] [place] [address] [address] [place] [address] Medical Question/Miscellaneous Social History Tobacco Use Types Packs/Day Years [...] materials from doctor or pharmacy Sometimes 11/06/2024 [facility] Utilities Answer Date Recorded In the [...] often do you attend chur ch or spiritism services? More than 4 times per year 11/03/2024 Do you belong to any clubs o r organizations such as quaker groups, unions, fraternal or athletic groups, or [...] place to sleep or slept in a fdc (including now)? No 11/15/2023 Housing Stability Vital Sign Answer Lee e Recorded In the last 12 months, was t here a time when you were not able to pay the mortgage or rent on time? No 11/03/2024 In the past 12 months, how m any times have you moved where you were living? 0 11/03/2024 At any time in the past 12 m [facility], were you homeless or living in a fdc (including now)? No 11/03/2024 Personal Safety Answer Date Recorded Have you ever been in or are you currently in a harmful physical or emotional relationship or is someone making you feel afraid or unsafe? Denies 10/31/2024 Comments No Sex and Gender Information Value Date Recorded Sex Assigned at Not on file Legal Sex Female 1:23 PM ROD GREASER Gender Identity Not on file Sexual Orientation Not on file documented as of this encounter Functional Status * Audit-C Score Answer Date of Assessment Author 0 10/29/2024 2:59 PM Aleta Vidal RN * Question Answer Date of Assessment Author Q1: How often do you have a drink containing alcohol? Never 10/29/2024 2:59 PM Aleta Vidal, JAY Q2: How many drinks containing alcohol do you have on a typical day when you are drinking? Patient does not drink 10/29/2024 2:59 PM Aleta Vidal, AJY Q3: How often do you have six or more drinks on one occasion? Never 10/29/2024 2:59 PM ROD GREASER Xuan, Aleta Breann, RN documented as of this encounter Ordered Prescriptions Prescription Sig Dispense Quantity Refills Last Filled Start Date End Date traMADoL (ULTRAM) 50 mg tabletIndications: Pain Take 1 tablet (50 mg total) by mouth every 6 (six) hours as needed for pain 20 tablet 10/13/2024 10/28/2024 documented in this encounter Miscellaneous Notes * Telephone Encounter - Lorie Gary MA - 10/13/2024 10:44 AM ROD GREASER Spoke to pt daughter Brooke, informed Brooke that the message will be sent high priority to Dr Camargo. Possible refill this morning 10/13/24.Brooke voiced understanding GREASER * Telephone Encounter - April Palacios - 10/13/2024 10:35 AM ROD GREASER Call Back Caller???s Concern: patient called office back about tramadol being sent into the office. Patient is in a lot of pain. Warm transferred back line. Does message need to be routed? No GREASER * Telephone Encounter - Debi Lopez - 10/10/2024 12:50 PM CST Call Back Caller???s Concern: Patient calling to follow up. Her pharmacy has still not received her Tramadol prescription. Patient states she is completely without her medication at this time and states it wassupposed to be sent during her visit on 10/07. Please advise [facility] [employer] #[id number] Does message need to be routed? Yes-Action Needed GREASER * Telephone Encounter - Cara Resendiz - 10/09/2024 2:37 PM CST Medical Question/Miscellaneous Caller???s Concern: Jacquie patients daughter (No HIPAA) called regarding prescription for Tramadol,caller stated her went to the pharmacy and they only had the other medication not the Tramadol, [facility] on file, please advise. Does message need to be routed? Yes-Action Needed GREASER documented in this encounter Plan of Treatment Not on file documented as of this encounter Goals Goal Patient Goal Type Associated Problems Recent Progress Patient-Stated? Author MUKUL General Goal - Patient / caregiver verbalizes lifestyle changes necessary to meet self-care needs and executes self-care activities to utmost capability ACO Care Management On track(2024 11:17 AM ROD GREASER) No Geneva Stacy, RN Note: Problem: At [...] ACO Care Management On track(2024 11:17 AM ROD GREASER) No Geneva Stacy, RN Note: Problem: Potential for medical complications [...] Diagnoses Not on filedocumented in this encounter Discontinued Medications Medication Sig Discontinue Reason Start Date End Da te traMADoL (ULTRAM) 50 mg tabletIndications:Pain Take 1 tablet (50 mg total) by mouth every 6 (six) hours as needed for pain Reorder 09/02/2024 10/13/2024 documented as of this encounter Care Teams Advertising Clerk Relationship Specialty Start Date End Date Aaron Camargo MD [address] [facility] [address] [place] [address] PCP - General Family Medicine 02/05/24 Geneva Stacy, JAY [address] [place] [address] [address] [place] [address] Casing Running Machine Tender 09/03/24 Florentino Mcgowan MD [address] [facility] [address] [place] [address] Consulting Physician Orthopedic Surgery 10/08/24 Juan Jose Caldwell MD [address] [place] [address] Consulting Physician Infectious Diseases 11/02/24 documented as of this encounter
[2024-11-10] MEDS: HEPARIN SODIUM LOCK FLUSH 500 UNITS/5 ML SYRINGE (17:44)
== END 2024-11-10 17:45 | disposition home or self-care (01) ==
PROVIDERS: Emergency Provider Emergency Medicine; PCP Family Medicine
DX: T82.594A Other mechanical complication of infusion catheter, initial encounter (principal); Y84.8 Other medical procedures as the cause of abnormal reaction of the patient, or of later complication, without mention of misadventure at the time of the procedure
CPT/HCPCS: 96374; 99284; J2997

== ENCOUNTER 2025-06-17 09:23 | Emergency (ER) | payer MEDICARE, SELFPAY ==
[2025-06-17 09:33] VITALS: BP 154/119; PULSE 149; RESP 16; TEMP 36.6; O2SAT 98
[2025-06-17 10:00] VITALS: BP 161/99; PULSE 100; RESP 20; O2SAT 100
--- OUTSIDE RECORDS SUMMARY | 2025-06-17 10:04 | XMS_ITS | Clinical Summary ---
Author Organization [facility] Address [address] [place] [place] [address] Care Team Providers Care Nurse Infection Control Name Role Phone Aaron Camargo MD Unavailable [phone] Florentino Mcgowan MD Unavailable [phone] Juan Jose Caldwell MD Unavailable Elisabeth Aranda NP Primary Care Provider [phone] Allergies No known active allergies Medications sodium chloride 0.9% injection Administer 10-40 mL into catheter every 12 (twelve) hours Active Additional Information Patient not taking.Reported on 04/01/2025 sodium chloride 0.9% injection Administer 10-20 mL into catheter as needed for line care Active Additional Information Patient not taking.Reported on 04/01/2025 heparin 10 unit/mL syringeIndicatio ns:Maintain Patency of Indwelling Vascular Catheter Administer 2-5 mL (20-50 Units total) into catheter as needed (with each use) Active Additional Information Patient not taking.Reported on 04/01/2025 heparin 10 unit/mL syringeIndicatio ns:Maintain Patency of Indwelling Vascular Catheter Administer 5 mL (50 Units total) into catheter every 12 (twelve) hours Active Additional Information Patient not taking.Reported on 04/01/2025 alteplase (CATHFLO ACTIVASE) 2 mg injectionIndicat ions:Acute peripheral arterial occlusion 2 mL (2,000 mcg total) once RN to reconstitute vial with 2.2ml Sterile Water just prior to administration. RN to instill Alteplase 2mg/2.2ml to catheter and allow to dwell for at least 30 minutes to restore catheter patency. 5 Active bacitracin 500 unit/gram ointmentIndicati ons:Surgical site infection,Closed trimalleolar fracture of right ankle with routine healing, subsequent encounter Apply topically 2 (two) times a day 15 g 1 5 Active Additional Information Patient not taking.Reported on 04/01/2025 gabapentin (NEURONTIN) 300 mg capsule Take 1 capsule (300 mg total) by mouth 3 (three) times a day 90 capsule 5 Active Additional Information Patient not taking.Reported on 04/01/2025 atorvastatin (LIPITOR) 10 mg tabletIndication s:hyperlipidemia Take 1 tablet (10 mg total) by mouth daily 90 tablet 3 5 026 Active bisoprolol (ZEBETA) 5 mg tabletIndication s:Myocardial Reinfarction Prevention Take 1 tablet (5 mg total) by mouth daily 90 tablet 3 5 026 Active ferrous sulfate 325 mg (65 mg of elemental iron) tabletIndication s:Iron Deficiency Anemia Take 1 tablet (325 mg total) by mouth daily with breakfast 90 tablet 3 5 026 Active furosemide (LASIX) 20 mg tabletIndication s:Edema Take 1 tablet (20 mg total) by mouth every other day 45 tablet 3 5 026 Active losartan (COZAAR) 25 mg tabletIndication s:hypertension Take 1 tablet (25 mg total) by mouth daily 90 tablet 3 5 026 Active amLODIPine (NORVASC) 10 mg tabletIndication s:hypertension Take 1 tablet (10 mg total) by mouth daily 90 tablet 3 5 026 Active aspirin 81 mg enteric coated tablet Take 1 tablet (81 mg total) by mouth daily 90 tablet 3 5 Active Active Problems Problem Noted Date Diagnosed Date Post-menopausal 04/01/2025 Assessment & Plan (04/01/2025 4:13 PM CDT): Orders: Dexa Axial Skeleton Bone Density 1 or 2 Site; Future Encounter for screening mamm ogram for malignant neoplasm of breast 04/01/2025 Assessment & Plan (04/01/2025 4:13 PM CDT): Orders: SCREENING MAMMOGRAM BILATERAL W VINAY Screening for thyroid disorder 04/01/2025 Assessment & Plan (04/01/2025 4:13 PM CDT): Orders: TSH; Future Class 1 obesity with serious comorbidity and body mass index (BMI) of 32.0 to 32.9 in adult 04/01/2025 Assessment & Plan (04/01/2025 4:13 PM CDT): BMI 32.74. Discussed healthy diet. Is limited with exercise related to current status of right foot. Ambulates with the assistance of a wheeled walker. Encouraged weight loss. Encounter to establish care with new doctor 04/2025 Assessment & Plan (04/01/2025 4:13 PM CDT): Infection of lower extremity associated with vic alvina 01/02/2025 Assessment & Plan (02/19/2025 7:45 PM CDT): At Ortho clinic on 10/28/24 she reported redness and drainage of incision which started 2-3 weeks prior. She was admitted and went to the OR 10/29/24 for right ankle I&D, and partial DAVID. Debridement was to the bone and gross contamination was noted intraoperatively. OR cultures were taken which are positive for MSSA, Enterococcus faecalis, Staph lugduneensis, and Mixed microorganisms. She was started postoperatively on IV Vancomycin and Cefepime and transitioned to IV Daptomycin and PO metronidazole on discharge with planned 6 week course (10/29/24 - 12/10/24), however this was extended to 12/15/24 due to missed/cancelled ID clinic appointments. Her prescription for PO Augmentin was not picked up so she has been off antibiotics for several weeks with no appreciable change in wound nor constitutional symptoms. Post op XR showed healing right trimalleolar ankle fracture s/p removal of the medial implants. Overall all implants were otherwise intact there has been some loosening of the syndesmotic screws with no breakage. The fibula fracture is healing as well as the posterior malleolus. The medial malleolus fracture is also in maintain alignment and does appear to be healing to some degree. - initial plan to transition to PO Augmentin for suppression due to retained hardware, however Staph lug shows I susceptibility to Amoxicillin, therefore will initiate doxycycline 100 mg PO BID to cover Staph lug, E faecalis and MSSA. Less concerned about anaerobic coverage. Will continue for at least additional 6 weeks. - reviewed potential side effects of photo sensitivity and pill esophagitis while on doxycycline. - wound care per Ortho surgery. Assessment & Plan (01/02/2025 2:05 PM CDT): At Ortho clinic on 10/28/24 she reported redness and drainage of incision which started 2-3 weeks prior. She was admitted and went to the OR 10/29/24 for right ankle I&D, and partial DAVID. Debridement was to the bone and gross contamination was noted intraoperatively. OR cultures were taken which are positive for MSSA, Enterococcus faecalis, Staph lugduneensis, and Mixed microorganisms. She was started postoperatively on IV Vancomycin and Cefepime and transitioned to IV Daptomycin and PO metronidazole on discharge with planned 6 week course (10/29/24 - 12/10/24), however this was extended to 12/15/24 due to missed/cancelled ID clinic appointments. Her prescription for PO Augmentin was not picked up so she has been off antibiotics for several weeks with no appreciable change in wound nor constitutional symptoms. Post op XR showed healing right trimalleolar ankle fracture s/p removal of the medial implants. Overall all implants were otherwise intact there has been some loosening of the syndesmotic screws with no breakage. The fibula fracture is healing as well as the posterior malleolus. The medial malleolus fracture is also in maintain alignment and does appear to be healing to some degree. - initial plan to transition to PO Augmentin for suppression due to retained hardware, however Staph lug shows I susceptibility to Amoxicillin, therefore will initiate doxycycline 100 mg PO BID to cover Staph lug, E faecalis and MSSA. Less concerned about anaerobic coverage. Will continue for at least additional 6 weeks. - reviewed potential side effects of photo sensitivity and pill esophagitis while on doxycycline. - wound care per Ortho surgery. - I discussed with the patient my impression, the imaging findings, and treatment plan in detail with a focus on the etiology, natural history, and management of symptoms. - I discussed with the patient the rationale for treatment, culture results, risk of recurrent infection, signs/symptoms of recurrent infection, and to contact ID clinic with any questions or concerns. Acute on chronic systolic congestive heart failu re 11/12/2024 Longstanding persistent atrial fibrillation 10/25 Assessment & Plan (04/01/2025 4:13 PM CDT): Surgical site infection 10/28/2024 Assessment & Plan (11/03/2024 1:32 PM LUNG PULLER): Rylee York is a 74 y.o. female [...] by ID to place PICC line for assisted IV antibiotics - ID is formally signing off but will continue to monitor patient peripherally while inpatient. Recommending to treat right ankle infection with retained hardware for 6 weeks (10/29/24-12/10/24) with daptomcyin and metronidazole with possible early PO switch at ID follow up. Please see sign off note from 11/03/24 for complete recommendations. Acute pain 08/30/2024 Assessment & Plan (08/30/2024 2:23 PM LUNG PULLER): 08/30 oxycodone adjusted to tramadol per pt request Trimalleolar fracture of right ankle 08/29/2024 Assessment & Plan (09/01/2024 12:37 PM LUNG PULLER): - Ortho consult - OR 08/29 Ex-Fix [...] 08/29/2024 Assessment & Plan (09/02/2024 12:15 PM LUNG PULLER): 08/29: new admission overnight, OR with ortho 09/01: OR with ortho for ORIF of R ankle, PT/OT, ADD 09/02 09/02: Patient is medically stable for discharge, SW/CM updated. Discharge pending nothing, patient discharging home Treatment note [x] HLD (hyperlipidemia) 08/29/2024 Assessment & Plan (04/01/2025 4:13 PM CDT): Assessment & Plan (08/29/2024 9:47 AM LUNG PULLER): Atorvastatin 10mg continued Goiter, nodular 08/29/2024 Assessment & Plan (09/02/2024 12:20 PM LUNG PULLER): #Large multinodular goiter - Incidental finding on C spine CT - Was previously seen on CT in Oct 2023, lost to follow up - Patient is aware of this incidental finding (discussed on 08/29) - TSH wnl - Thyroid ultrasound ordered while inpatient, pt needs outpatient US Fall, initial encounter 08/28/2024 Assessment & Plan (08/29/2024 9:02 AM LUNG PULLER): - Mechanical fall down ~13 steps - HCT, C spine CT Encounter for Medicare annual wellness exam 07/26 Assessment & Plan (08/18/2024 9:38 AM LUNG PULLER): A(n) yearly Medicare Annual Wellness Visit has [...] for malignant neoplasm o f colon 04/01/2024 Stage 3b chronic kidney disease 03/05/2024 Assessment & Plan (09/02/2024 12:14 PM LUNG PULLER): - Cr 0.89 on admission 08/30 Cr [...] 11/14/2023 Essential hypertension 05/03/2011 Assessment & Plan (04/01/2025 4:13 PM CDT): Assessment & Plan (09/02/2024 12:15 PM LUNG PULLER): - hypertensive emergency on admission, hydralazine given - PO amlodipine 5mg and Losartan 25mg continued (home meds) - 08/30 SBP 140-150 Norvasc incr to 10 - PO Lasix 20 every other day (home med) - Patient instructed to follow up with PCP for medication adjustment. Type 2 diabetes mellitus with hyperlipidemia 06/2011 Assessment & Plan (04/01/2025 4:13 PM CDT): Orders: Lipid panel; Future CBC with auto differential; Future Comprehensive metabolic panel; Future Albumin Creatinine Ratio, Urine; Future Hemoglobin A1c; Future Assessment & Plan (08/29/2024 9:07 AM LUNG PULLER): - SSI - DM diet Type 2 diabetes mellitus without complication Encounters Date Type Department Care Team Description 06/10/2025 Telephone [facility] Medicine Orthopaedic Surgery [address]th [place] [address] [place] [address] Florentino Mcgowan MD 06/04/2025 9:15 AM CDT - 06/04/2025 11:59 PM CDT Hospital Encounter [address] [address] Closed trimalleolar fracture of right ankle with routine healing, subsequent encounter Discharge Disposition: Discharge to home or self care 06/03/2025 Orders Only [facility] Medicine Orthopaedic Surgery [address] [facility] 6[address] [place] [address] [place] [address] Florentino Mcgowan MD Closed trimalleolar fracture of right ankle with routine healing, subsequent encounter (Primary Dx) 05/04/[address] [address] Sveta Engel MA Chart Review (Med adherence) 04/17/2025 [facility] Medication Access [address] [address] Neisha Sheldon, [facility] 04/02/2025 Results Follow-Up [facility] Primary Care at [address] [phone] Elisabeth Aranda NP Hemoglobin A1c, Albumin Creatinine Ratio, Urine, Comprehensive metabolic panel, Additional followed-up results: 5 04/01/2025 10:40 AM CDT Lab [facility] at [address] [address] Type 2 diabetes mellitus with hyperlipidemia (HCC); Screening for thyroid disorder 04/01/2025 10:00 AM CDT Office Visit [facility] at [address] [phone] Elisabeth Aranda NP Encounter to establish care with new doctor (Primary Dx); Type 2 diabetes mellitus with hyperlipidemia (HCC); Post-menopausal; Encounter for screening mammogram for malignant neoplasm of breast; Essential hypertension; Mixed hyperlipidemia; Longstanding persistent atrial fibrillation (HCC); Screening for thyroid disorder; Class 1 obesity with serious comorbidity and body mass index (BMI) of 32.0 to 32.9 in adult, unspecified obesity type from Last 3 Months Immunizations Immunization Administration Dates Next Due Influenza, Trivalent, High D ose, Split, Preservative Free, Intramuscular 11/05/2024 Influenza, Unspecified 08/18/2024(Deferr ed: Patient Refused),09/24/2023(Deferred: Patient Refused) Pneumococcal Conjugate Pcv20 02/05/2024 Surgical History Surgery Date Site/Laterality Comments HYSTERECTOMY CHOLECYSTECTOMY COLONOSCOPY 05/16/2024 COLONOSCOPY 09/24/2003 - 09/23/2004 SECTION 2 TOTAL COLONOSCOPY 07/22/2024 Medical History Medical History Date Comments Hypertension Diabetes mellitus CHF (congestive heart failure) (HCC) Myocardial infarction (HCC) Migraines Family History [...] Frequency of experiencing loneliness or isolatio n Never 01/20/2025 OASIS A1250: Transportation Answer Date Recorded Lack of Transportation (Medical) No 01/20/2025 Lack of Transportation (Non-Medical) No 01/20/2025 Patient Unable or Declines to Respond No 01/20/2025 OASIS B1300: Health Literacy Answer Lee e Recorded Frequency of needing help to read materials from doctor or pharmacy Sometimes 01/20/2025 [facility] Utilities Answer Date Recorded In the past 12 months has [employer], [employer], or water [employer] threatened to shut off services in your home? No 11/13/2024 Social Connection and Isolation Panel Answer Date Recorded In a typical week, how many times do you talk on the phone with family, friends, or neighbors? More than three times a week 11/13/2024 How often do you get togethe r with friends or relatives? More than three times a week 11/13/2024 How often do you attend chur or rastafarian services? More than 4 times per year 11/13/2024 Do you belong to any clubs o r organizations such as advent groups, unions, fraternal or athletic groups, or school groups? No 11/13/2024 How often do you attend meet ings of the clubs or organizations you belong to? Never 11/13/2024 Are you , , di vorced, , never , or living with a partner? 11/13/2024 AUDIT-C Answer Date Recorded Q1: How often [...] care, and heating? Not hard at all 11/13/2024 PHQ-2 Answer Date Recorded PHQ-2 Total Score (If total score is 3 or more points, staff should administer the PHQ-9) 1 04/01/2025 Hunger Vital Sign Answer Date Recorded Within the past 12 months, y ou worried that your food would run out before you got the money to buy more. Never true 11/13/19 25 Within the past 12 months, t he food you bought just didn't last and you didn't have money to get more. Never true 11/13/2024 PRAPARE - Transportation Answer Date Re corded In the past 12 months, has l ack of transportation kept you from medical appointments or from getting medications? No 10/26 In the past 12 months, has l ack of transportation kept you from meetings, work, or from getting things needed for daily living? No 11/13/2024 Housing Stability Vital Sign Answer Lee e [...] place to sleep or slept in a residential (including now)? No 11/15/2023 PHQ-9 Answer Date Recorded PHQ-9 Total Score 10 02/05/2024 Housing Stability Vital Sign Answer Lee e Recorded In the last 12 months, was t here a time when you were not able to pay the mortgage or rent on time? No 11/13/2024 In the past 12 months, how m any times have you moved where you were living? 0 11/13/2024 At any time in the past [address] [facility], were you homeless or living in a residential (including now)? No 11/13/2024 Personal Safety Answer Date Recorded Have you ever been in or are you currently in a harmful physical or emotional relationship or is someone making you feel afraid or unsafe? Denies 10/31/2024 Comments No Sex and Gender Information Value Date Recorded Sex Assigned at Not on file Legal Sex Female 1:23 PM LUNG PULLER Gender Identity Not on file Sexual Orientation Not on file Obstetrics History Last Filed Vital Signs Vital Sign Reading Time Taken Comments Blood Pressure 128/80 04/01/2025 9:27 AM CDT Pulse 91 04/01/2025 9:27 AM CDT Temperature 36.7 C (98.1 F) 04/01/2025 9:27 AM CDT Respiratory Rate 16 04/01/2025 9:27 AM CDT Oxygen Saturation 96% 04/01/2025 9:27 AM CDT Inhaled Oxygen Concentration - - Weight 81.2 kg (179 lb) 04/01/2025 9:27 AM CDT Height 157.5 cm (5' 2) 04/01/2025 9:27 AM CDT Body Mass Index 32.74 04/01/2025 9:27 AM CDT Plan of Treatment Health Maintenance Due Date Last Done Comments Breast Cancer Screening-Mammogram 1950 Osteoporosis Screening-Bone Density Scan 1950 DTaP/Tdap/Td Vaccine (1 - Tdap) 1963 Dilated Eye Exam 04/02/2025 04/02/2024 Influenza Vaccine (#1) 2025 11/05/2024 Well Visit 65+ 08/18/2025 08/18/2024 Hemoglobin A1C 10/02/2025 04/01/2025, 02/22, 11/14/2023 Fall Risk Assessment 11/12/2025 11/12/2024, 11/05/2024, 08/18/2024, Additional history exists Zoster Vaccine (1 of 2) 03/25/2026 Post poned from 2002 (Insurance / Financial) Albumin Creatinine Ratio, Urine 04/01/2026 04/01/2025, 03/05/2024 Depression Screening 04/01/2026 04/01/2025, 11/12/2024, 10/28/2024, Additional history exists Foot Exam 04/01/2026 04/01/2025, 02/22, 03/05/2024 Lipid Panel 04/01/2026 04/01/2025, 1201/2024, 11/17/2023 eGFR 04/01/2026 04/01/2025, 11/22, 12/03/2024, Additional history exists Colon Cancer Screening-Colonoscopy 07/22/2027 07/22/2024, 05/16/2024 Pneumococcal vaccine 65+ Completed 02/05/2024 Hepatitis B Screening Completed 11/04/2024 Hepatitis C Screening Completed 11/04/2024, 024 Medical Devices Implanted Type Area Racing Manager Device Identifier Shelf Expiration Date Model / Serial / Lot Synthes Schanz 5mm 170mm 50mm Blunt Trocar Point Xlong Screw External 294.55 - [id number] Implanted:Qty: 2 on 08/29/2024 by Harjinder Obrien MD at [facility] Right: Ankle Synthes 294.55 / / Synthes Steinmann 5mm 5.5mm 275mm Central Thread Pin Fixation Large 293.890 - [id number] Implanted:Qty: 1 on 08/29/2024 by Harjinder Obrien MD at [facility] Right: Ankle Synthes 293.890 / / [employer] Screw Bone Cortical Threaded 2.7x80mm Ti Ar-87489-09 - [id number] Implanted:Qty: 2 on 09/01/2024 by Florentino Mcgowan MD at [facility] [employer] [id number] 0 / / [employer] Plate Bone T Shape 6 Hole 2 Hole Head 2.7mm Ti [id number] - [id number] Implanted:Qty: 1 on 09/01/2024 by Florentino Mcgowan MD at [facility] [employer] [id number] / / [employer] Screw Bone Cortical Threaded 2.7x42mm Ti Ar-91780-19 - [id number] Implanted:Qty: 1 on 09/01/2024 by Florentino Mcgowan MD at [facility] [employer] AR-[id number] 2 / / [employer] Screw Bone Cortical Threaded 2.7x34mm Ti Ar-66180-02 - [id number] Implanted:Qty: 1 on 09/01/2024 by Florentino Mcgowan MD at [facility] [employer] AR-[id number] 4 / / [employer] Screw Bone Cortical Threaded 2.7x36mm Ti Ar-99044-63 - [id number] Implanted:Qty: 1 on 09/01/2024 by Florentino Mcgowan MD at [facility] [employer] AR-[id number] 6 / / [employer] Screw Bone Threaded 2.7x40mm Ti [id number] - [id number] Implanted:Qty: 1 on 09/01/2024 by Florentino Mcgowan MD at [facility] [employer] AR-[id number]- 40 / / [employer] Low Profile Screws 3.5mm 48mm Modular Self Drill Solid Ankle Ar-8835-48 - [id number] Implanted:Qty: 1 on 09/01/2024 by Florentino Mcgowan MD at [facility] [employer] AR-8835-48 / / [employer] Screw Bone Cortical Solid Full Thread Non Locking 3.5x52mm Ss Ar-8835-52 - [id number] Implanted:Qty: 1 on 09/01/2024 by Florentino Mcgowan MD at [facility] [employer] AR-8835-52 / / 3.5 Cortical Screw Implanted:Qty: 1 on 09/01/2024 by Florentino Mcgowan MD at [facility] [employer] AR-8835-54 / / Description:inactive [employer] Screw Bone Cortical Threaded 2.7x20mm Ti Ar-50231-54 - [id number] Implanted:Qty: 1 on 09/01/2024 by Florentino Mcgowan MD at [facility] [employer] AR-[id number] 0 / / [employer] Screw Bone Cortical Threaded 2.7x22mm Ti Ar-04886-96 - [id number] Implanted:Qty: 1 on 09/01/2024 by Florentino Mcgowan MD at [facility] [employer] AR-59363-9 2 / / [employer] Plate Bone Locking 6 Hole Right Distal Fibula Internalbrace Ss [id number]-34 - [id number] Implanted:Qty: 1 on 09/01/2024 by Florentino Mcgowan MD at [facility] [employer] AR-[id number]- 06 / / [employer] Low Profile Screws 3.5mm 12mm Modular Solid Hexalobe Self Tap Ar-8835-12 - [id number] Implanted:Qty: 2 on 09/01/2024 by Florentino Mcgowan MD at [facility] [employer] AR-8835-12 / / [employer] Low Profile Screws 2.7mm 16mm Modular Solid Hexalobe Lock Ankle Ar-8827l-16 - [id number] Implanted:Qty: 4 on 09/01/2024 by Florentino Mcgowan MD at [facility] [employer] AR-8827L-1 6 / / [employer] Low Profile Screws 2.7mm 14mm Modular Solid Hexalobe Lock Ankle Ar-8827l-14 - [id number] Implanted:Qty: 1 on 09/01/2024 by Florentino Mcgowan MD at [facility] [employer] AR-8827L-1 4 / / [employer] Low Profile Screws 3.5mm 14mm Modular Solid Hexalobe Lock Ankle Ar-8835l-14 - [id number] Implanted:Qty: 1 on 09/01/2024 by Florentino Mcgowan MD at [facility] [employer] AR-8835L-1 4 / / [employer] Restrata Wound Matrix [id number] Synthetic Sheet Rwm1-2x2 - [id number] Implanted:Qty: 1 on 10/31/2024 by Florentino Mcgowan MD at [facility] [employer] RWM-1 2X2 / / Restrata Minimatrix Implanted:Qty: 1 on 10/31/2024 by Florentino Mcgowan MD at [facility] [employer] 05/02/2026 [id number] / / [id number] [employer] Restrata Mini Matrix 250mg Micronized Powder Rmini-250 - [id number] Implanted:Qty: 1 on 10/31/2024 by Florentino Mcgowan MD at [facility] [employer] RMINI-250 / / [id number] Procedures Procedure Name Priority Date/Time Associated Diagnosis Comments XR ANKLE RIGHT 3 OR MORE VIEWS Schedule Routine, Read Routine (OP Routine) 06/04/2025 9:26 AM CDT Closed trimalleolar fracture of right ankle with routine healing, subsequent encounter EGFR Routine 04/01/2025 10:33 AM CDT Type 2 diabetes mellitus with hyperlipidemia (HCC) DIFFERENTIAL AUTO Routine 04/01/2025 10:33 AM CDT Type 2 diabetes mellitus with hyperlipidemia (HCC) LIPID PANEL Routine 04/01/2025 10:33 AM CDT Type 2 diabetes mellitus with hyperlipidemia (HCC) TSH Routine 04/01/2025 10:33 AM CDT Screening for thyroid disorder CBC WITH AUTO DIFFERENTIAL Routine 04/01/2025 10:33 AM CDT Type 2 diabetes mellitus with hyperlipidemia (HCC) COMPREHENSIVE METABOLIC PANEL Routine 04/01/2025 10:33 AM CDT Type 2 diabetes mellitus with hyperlipidemia (HCC) ALBUMIN CREATININE RATIO, URINE Routine 04/01/2025 10:33 AM CDT Type 2 diabetes mellitus with hyperlipidemia (HCC) HEMOGLOBIN A1C Routine 04/01/2025 10:33 AM CDT Type 2 diabetes mellitus with hyperlipidemia (HCC) HEPATITIS C ANTIBODY Routine 11/04/2024 9:02 PM LUNG PULLER COLONOSCOPY 07/22/2024 10:32 AM CDT HM DIABETES EYE EXAM Routine 04/02/2024 2:30 PM CDT from Last 3 Months or Most Recently Relevant to Health Maintenance Results * XR Ankle Right 3 or More Views (06/04/2025 9:26 AM CDT) Anatomical Region Laterality Modality Lower Extremities, Ankle Right Compute d Radiography 06/10/2025 10:4 6 AM CDT Narrative 06/10/2025 10:48 AM CDT EXAM DESCRIPTION: 1. XR ANKLE RIGHT 3 OR MORE VIEWS REASON FOR STUDY: fracture Follow up fx FINDINGS: Three views of the right ankle are submitted for interpretation and compared to prior 03/03/2025. Healed reduced and internally fixated distal fibula fracture. Syndesmotic fixation is present with lucency/loosening of the syndesmotic screws. Nearly healed medial malleolus fracture is present. Healed posterior malleolus fracture. Mild tibiotalar osteoarthritis. Soft tissue swelling is present about the ankle. External fixator pin tracts are present in the calcaneus and distal tibia. Dorsal calcaneal spur is present. IMPRESSION: 1. Trimalleolar right ankle fracture with healed reduced and internally fixated distal fibula fracture, nearly healed medial malleolus fracture and healed posterior malleolus fracture. Syndesmotic fixation with evidence of loosening of the syndesmotic fixation. THIS IS AN ELECTRONICALLY VERIFIED FINAL REPORT 06/10/2025 10:48 AM - Electronically signed by Jalen Vazquez M.D. TH: TH Report ID: [id number] Reading Location: [id number] Procedure Note Jalen Vazquez MD - 06/10/2025 EXAM DESCRIPTION: 1. XR ANKLE RIGHT 3 OR MORE VIEWS REASON FOR STUDY: fracture Follow up fx FINDINGS: Three views of the right ankle are submitted for interpretation andcompared to prior 03/03/2025. Healed reduced and internally fixated distal fibula fracture. Syndesmotic fixation is present with lucency/loosening of the syndesmotic screws.Nearly healed medial malleolus fracture is present. Healed posterior malleolus fracture. Mild tibiotalar osteoarthritis. Soft tissue swelling ispresent about the ankle. External fixator pin tracts are present in the calcaneusand distal tibia. Dorsal calcaneal spur is present. IMPRESSION: 1. Trimalleolar right ankle fracture with healed reduced and internally fixated distal fibula fracture, nearly healed medial malleolus fractureand healed posterior malleolus fracture. Syndesmotic fixation with evidenceof loosening of the syndesmotic fixation. THIS IS AN ELECTRONICALLY VERIFIED FINAL REPORT 06/10/2025 10:48 AM - Electronically signed by Jalen Vazquez M.D. TH: TH Report ID: [id number] Reading Location: [place] [address] us Florentino Mcgowan MD IMG XR PROCEDURES Final R esult * eGFR (04/01/2025 10:33 AM CDT) eGFR 67 >=60 mL/min/1. 73 m2 Comment: Interpretive Data [...] Current interpretive data was last reviewed 2021. Testing performed by: [facility], [address] [place] [address]., [facility] Blood 04/01/2025 10:3 3 AM CDT 04/01/2025 4:05 PM CDT us Elisabeth Aranda FIELD ORGANIZER LAB BLOOD ORDERABLES Final Re sult RADHA [address] [facility] Department [place] [address] * Differential, auto (04/01/2025 10:33 AM CDT) Pathologist [facility] Neutrophil abs 2.07 1.50 - 6.50 K/cumm Comment:Testing performed by : [facility], [address] [place] [address]., [address] Imm gran abs 0.01 0.00 - 0.10 K/cumm CERNER CH Comment:Testing performed by : [facility], [address] [place] [address]., [address] Lymphocyte abs 1.80 0.80 - 3.30 K/cumm CERNER CH Comment:Testing performed by : [facility], [address] [place] [address]., [address] Monocyte abs 0.35 0.20 - 0.80 K/cumm CERNER CH Comment:Testing performed by : [facility], [address] [place] [address]., [address] Eosinophil abs 0.04 0.00 - 0.50 K/cumm CERNER CH Comment:Testing performed by : [facility], [address] [place] [address]., [address] Basophil abs 0.01 0.00 - 0.10 K/cumm CERNER CH Comment:Testing performed by : [facility], [address] [place] [address]., [address] Neutrophil pct 48.4 % CERNER CH Comment: Interpretive Data Percent cell count reference ranges are not reported, since discordance with absolute values may lead to misinterpretation of CBC data. Current Interpretive Data was last revised on 2018. Testing performed by: [facility], [address] [place] [address]., [address] Imm gran pct 0.2 % CERNER CH Comment: Interpretive Data Percent cell count reference ranges are not reported, since discordance with absolute values may lead to misinterpretation of CBC data. Current Interpretive Data was last revised on 2018. Testing performed by: [facility], [address] [place] [address]., [address] Lymphocyte pct 42.1 % CERNER CH Comment: Interpretive Data Percent cell count reference ranges are not reported, since discordance with absolute values may lead to misinterpretation of CBC data. Current Interpretive Data was last revised on 2018. Testing performed by: [address] [address] Monocyte pct 8.2 % CERNER CH Comment: Interpretive Data Percent cell count reference ranges are not reported, since discordance with absolute values may lead to misinterpretation of CBC data. Current Interpretive Data was last revised on 2018. Testing performed by: [address] [address] Eosinophil pct 0.9 % RADAH Comment: Interpretive Data Percent cell count reference ranges are not reported, since discordance with absolute values may lead to misinterpretation of CBC data. Current Interpretive Data was last revised on 2018. Testing performed by: [address] [address] Basophil pct 0.2 % RADHA Comment: Interpretive Data Percent cell count reference ranges are not reported, since discordance with absolute values may lead to misinterpretation of CBC data. Current Interpretive Data was last revised on 2018. Testing performed by: [address] [address] Blood 04/01/2025 10:3 3 AM CDT 04/01/2025 3:53 PM CDT us Elisabeth Aranda FIELD ORGANIZER LAB BLOOD ORDERABLES Final Re sult [address] Department [place] [address] * (ABNORMAL) CBC with auto differential (04/01/2025 10:33 AM CDT) WBC 4.28 3.80 - 9.90 K/cumm Comment:Testing performed by : [address] [address] Hgb 11.8(L) 11.9 - 15.5 g/dL RADHA Comment:Testing performed by : [address] [address] Hct 38.6 35.6 - 45.5 % RADHA Comment:Testing performed by : [address] [address] Plt 198 150 - 400 K/cumm RADHA Comment:Testing performed by : [address] [address] MPV 11.0 9.1 - 12.3 fL [facility] Comment:Testing performed by : [facility], [address] [place] [address], [address] RBC 4.22 3.90 - 5.20 M/cumm RADHA Comment:Testing performed by : [address], [address] MCV 91.5 81.3 - 96.4 fL RADHA Comment:Testing performed by : [facility], [address] [place] [address], [address] MCH 28.0 27.1 - 33.3 pg CERWILFREDO Comment:Testing performed by : [address], [address] MCHC 30.6(L) 32.3 - 35.7 g/dL RADHA Comment:Testing performed by : [address], [address] RDW CV 16.0(H) 11.1 - 14.9 % RADHA Comment:Testing performed by : [address], [address] RDW SD 53.6(H) 35.7 - 48.1 fL [facility] Comment:Testing performed by : [address], [address] NRBC abs 0.00 0.00 - 0.01 K/cumm [facility] Comment:Testing performed by : [address], [address] Blood 04/01/2025 10:3 3 AM CDT 04/01/2025 3:53 PM CDT us Elisabeth Aranda FIELD ORGANIZER LAB BLOOD ORDERABLES Final Re sult [address] Department [place] [address] * (ABNORMAL) Albumin Creatinine Ratio, Urine (04/01/2025 10:33 AM CDT) Albumin Ur 38.6 mg/L Comment: Interpretive Data No reference range established. Current interpretive data was last revised 2019. Testing performed by: [facility], [address] [place] [address]., [address] Creatinine Ur 122.1 mg/dL RADHA Comment: Interpretive Data No reference range established. Current interpretive data was last revised 2019. Testing performed by: [facility], [address] [place] [address]., [address] Albumin Creatinine Ratio, Ur 32(H) 1 - 29 mg/g RADHA Comment:Testing performed by : [facility], [address] [place] [address]., [address] Urine 04/01/2025 10:3 3 AM CDT 04/01/2025 3:54 PM CDT Elisabeth Aranda FIELD ORGANIZER LAB URINE ORDERABLES Final Re sult Performing Organization Address [facility] Co de Phone Number RADHA [place] [address] [address] [place] [address] * TSH (04/01/2025 10:33 AM CDT) Thyroid Stimulating Hormone 1.63 0.30 - 4.20 mcIUnit/mL Comment:Testing performed by : [facility], [address] [place] [address], [address] Blood 04/01/2025 10:3 3 AM CDT 04/01/2025 3:53 PM CDT Elisabeth Aranda FIELD ORGANIZER LAB BLOOD ORDERABLES Final Re sult Performing Organization Address [facility] Co de Phone Number RADHA [address] [address] [place] [address] * (ABNORMAL) Hemoglobin A1c (04/01/2025 10:33 AM CDT) Hgb A1C 6.5(H) 4.0 - 5.6 % Comment:Testing performed by : [address] [address] Estimated Average Glucose 140 mg/dL RADHA Comment: The ADA recommends reporting an estimated Average Glucose (eAG) with all Hemoglobin A1c results using the equation derived from a study of 507 normal and diabetic adults. Minority populations were underrepresented and children were not included. (Diabetes Care 31:1774-8871, 2008). The eAG is not equivalent to a fasting glucose. Testing performed by: [facility], [address] [place] [address]., [address] Blood 04/01/2025 10:3 3 AM CDT 04/01/2025 3:53 PM CDT us Elisabeth Aranda NP LAB BLOOD ORDERABLES Final Re sult RADHA KLINE [address] [place] [address] Department [place] [address] * Lipid panel (04/01/2025 10:33 AM CDT) Cholesterol 158 30 - 199 mg/dL Comment: Interpretive Data [...] Interpretive Data was last revised on 2018. Testing performed by: [facility], [address] [place] [address]., [address] Triglycerides 89 <=149 mg/dL RADHA KLINE Comment: Interpretive Data Ages < or = [...] Interpretive Data was last revised on 2018. Testing performed by: [facility], [address] [place] [address]., [address] HDL 68 >=40 mg/dL [facility] Comment: Interpretive Data Ages < or [...] Interpretive Data was last revised on 2018. Testing performed by: [facility], [address] [place] [address]., [address] LDL, calculated 74 <=129 mg/dL [facility] Comment: Interpretive Data Ages < or [...] Interpretive Data was last revised on 2024. Testing performed by: [address] [address] Non-HDL Cholesterol 90 mg/dL [facility] Comment: Interpretive Data Ages < or = [...] Interpretive Data was last revised on 2018. Testing performed by: [address] [address] Chol/HDL ratio 2 CERNER CH Comment:Testing performed by : [address] [address] Blood 04/01/2025 10:3 3 AM CDT 04/01/2025 3:53 PM CDT us Elisabeth Aranda FIELD ORGANIZER LAB BLOOD ORDERABLES Final Re sult [address] Department [place] [address] * (ABNORMAL) Comprehensive metabolic panel (04/01/2025 10:33 AM CDT) Sodium 145 135 - 145 mmol/L Comment:Testing performed by : [address] [address] Potassium, pl 4.3 3.3 - 4.9 mmol/L CERNER CH Comment:Testing performed by : [address] [address] Chloride 105 97 - 110 mmol/L CERNER Comment:Testing performed by : [address] [address] CO2 27 22 - 32 mmol/L CERNER CH Comment:Testing performed by : [address] [address] Anion gap 13 2 - 15 mmol/L CERNER CH Comment:Testing performed by : [address] [address] BUN 27(H) 6 - 25 mg/dL CERNER CH Comment:Testing performed by : [address] [address] Creatinine 0.91 0.60 - 1.10 mg/dL CERNER CH Comment:Testing performed by : [address] [address] Glucose 114 70 - 199 mg/dL CERNER CH Comment: Interpretive Data Fasting glucose >/= 126 [...] Current interpretive data was last revised 2022. Testing performed by: [address] [address] Calcium 10.0 8.5 - 10.3 mg/dL CERNER CH Comment:Testing performed by : [address] [address] Bilirubin, total 0.4 0.1 - 1.2 mg/dL CERNER CH Comment:Testing performed by : [address] [address] Protein, pl 8.3 6.5 - 8.5 g/dL CERNER CH Comment:Testing performed by : [address] [address] Albumin 4.5 3.5 - 5.0 g/dL CERNER CH Comment:Testing performed by : [address] [address] Alk phos 71 40 - 130 Units/L CERNER CH Comment:Testing performed by : [address] [address] ALT 18 7 - 45 Units/L CERNER CH Comment:Testing performed by : [address], [address] AST 35 10 - 45 Units/L CERNER CH Comment:Testing performed by : [address] [address] Blood 04/01/2025 10:3 3 AM CDT 04/01/2025 3:53 PM CDT us Elisabeth Aranda FIELD ORGANIZER LAB BLOOD ORDERABLES Final Re sult RADHA [address] [address] Department [place] [address] * Hepatitis C antibody Blood (11/04/2024 9:02 PM LUNG PULLER) Hep C Ab Nonreactive Nonreactive Comment:Antibodies to HCV no t detected. Does NOT exclude the possibility of recent exposure to HCV. Current interpretive data was last revised on 22 Blood 11/04/2024 9:02 PM LUNG PULLER 11/04/2024 9:15 PM LUNG PULLER us Notinfile Unknown LAB MICROBIOLOGY - GENERAL ORD ERABLES Final Result Performing Organization Address City/[facility]/ZIP Co de Phone Number RADHA [facility] Department [place] [address] * Colonoscopy (07/22/2024 10:32 AM CDT) Anatomical Region Laterality Modality Other Narrative Procedure Note Piero Nieves MD - 07/22/2024 10:32 AM CDT [facility] Endoscopy Lab Patient Name: Rylee Snell Procedure Date: 07/22/2024 10:32AM Date of : 1950 Admit Type: Outpatient Age: 73 Gender: Female Note Status: Finalized Attending MD: Piero Nieves M.D. Procedure Date: 07/22/2024 Procedure: Colonoscopy Indications: Screening for colorectal malignant neoplasm Providers: Piero Nieves M.D., KEVIN Deutsch (Anesthesia Staff), Rimma Medina RN, Marya Mcknight, Deputy Sheriff Custody Referring MD: Aaron Camargo M.D. Medicines: Monitored [...] bowel preparation was evaluated using the BBPS ([place] Bowel Preparation Scale)with scores of: Right Colon [...] polyp removal. Procedure Code(s): --- Professional --- 08492, Colonoscopy, flexible; with endoscopicmucosal resection 95151, 59, Colonoscopy, flexible; with biopsy,single or multiple Diagnosis Code(s): --- Professional --- D12.3, Benign neoplasm of transverse colon (hepatic flexure or splenic flexure) Z12.11, Encounter for screening for malignantneoplasm of colon K64.4, Residual hemorrhoidal skin tags CPT copyright 2020 [employer]. All rights reserved. The codes documented in this report are preliminary and upon medical record coder reviewmay be revised to meet current compliance requirements. Piero Nieves M.D. 07/22/2024 11:20:31 AM Number of Addenda: 0 Note Initiated On: 07/22/2024 10:32 AM Piero Nieves MD ENDOSCOPY PROCEDURES Edit ed Result - Final * DIABETES EYE EXAM (04/02/2024 2:30 PM CDT) SCRIBED DIABETIC DILATED EYE EXAM Comment:No Diabetic Retinopa thy Historical Provider HEALTH MAINTENANCE Final Result from Last 3 Months or Most Recently Relevant to Health Maintenance Insurance [facility] [address] Advance Directives For more information, please contact: [phone] * Full Code (Latest Code Status on File) Date Activated Date Inactivated Comments 10/28/2024 6:50 PM 11/05/2024 7:53 PM * Full Code Date Activated Date Inactivated Comments 08/29/2024 3:16 AM 09/02/2024 11:09 PM * Full Code Date Activated Date Inactivated Comments 11/14/2023 10:48 PM 11/17/2023 6:34 PM Care Teams Nurse Infection Control Relationship Specialty Start Date End Date Elisabeth Aranda NP [address] [facility] [address] [place] [address] PCP - General Family Medicine 04/01/25 Aaron aCmargo MD [address] [facility] [address] [place] [address] Family Medicine 11/14/24 Florentino Mcgowan MD [address] [facility] [address] [place] [address] Consulting Physician Orthopedic Surgery 10/08/24 Juan Jose Caldwell MD [address] [place] [address] Consulting Physician Infectious Diseases 11/02/24
--- OUTSIDE RECORDS SUMMARY | 2025-06-17 10:04 | XMS_ITS | Patient Health Record ---
Author Organization [facility] Address [address] [address] Support Name Relationship Address Phone Rylee York Guarantor Unknown [phone] Reason For Referral No Information Problems Problem Type SNOMED Code ICD Code Onset Dates Problem Status W/U Status Risk Notes Problem Type II diabetes mellitus without complication (229631573) Diabetes mellitus without mention of complication, type II or unspecified type, not stated as uncontrolled (250.00) 05/03/20 11 Active confirmed (Yohan) Problem Hyperlipidemia (40354550) Other and unspecified hyperlipidemia (272.4) 05/03/20 11 Active confirmed (Yohan) Problem Essential hypertension (71455645) Unspecified essential hypertension (401.9) 05/03/20 11 Active confirmed (Yohan) Problem Screening for malignant neoplasm of colon (110285784) Special screening for malignant neoplasms, colon (V76.51) 05/03/20 11 Active confirmed (Yohan) Plan Of Treatment No Information
[2025-06-17 10:48] VITALS: PULSE 98; RESP 20; O2SAT 94
--- OUTSIDE RECORDS SUMMARY | 2025-06-17 10:52 | XMS_ITS | Clinical Summary ---
Author Organization [facility] Address [address] [place] [address] Care Team Providers Care Bowling Pin Refinisher Name Role Phone Aaron Camargo MD Unavailable [phone] Florentino Mcgowan MD Unavailable [phone] Juan Jose Caldwell MD Unavailable Elisabeth Aranda NP Primary Care Provider [phone] Allergies No known active allergies Medications sodium [...] 10/28/2024 Assessment & Plan (11/03/2024 1:32 PM TEAM LEADER): Rylee York is a 74 y.o. female [...] by ID to place PICC line for intermediate IV antibiotics - ID is formally signing off but will continue to monitor patient peripherally while inpatient. Recommending to treat right ankle infection with retained hardware for 6 weeks (10/29/24-12/10/24) with daptomcyin and metronidazole with possible early PO switch at ID follow up. Please see sign off note from 11/03/24 for complete recommendations. Acute pain 08/30/2024 Assessment & Plan (08/30/2024 2:23 PM TEAM LEADER): 08/30 oxycodone adjusted to tramadol per pt request Trimalleolar fracture of right ankle 08/29/2024 Assessment & Plan (09/01/2024 12:37 PM TEAM LEADER): - Ortho consult - OR 08/29 Ex-Fix [...] 08/29/2024 Assessment & Plan (09/02/2024 12:15 PM TEAM LEADER): 08/29: new admission overnight, OR with ortho 09/01: OR with ortho for ORIF of R ankle, PT/OT, ADD 09/02 09/02: Patient is medically stable for discharge, SW/CM updated. Discharge pending nothing, patient discharging home Treatment note [x] HLD (hyperlipidemia) 08/29/2024 Assessment & Plan (04/01/2025 4:13 PM CDT): Assessment & Plan (08/29/2024 9:47 AM TEAM LEADER): Atorvastatin 10mg continued Goiter, nodular 08/29/2024 Assessment & Plan (09/02/2024 12:20 PM TEAM LEADER): #Large multinodular goiter - Incidental finding on C spine CT - Was previously seen on CT in Oct 2023, lost to follow up - Patient is aware of this incidental finding (discussed on 08/29) - TSH wnl - Thyroid ultrasound ordered while inpatient, pt needs outpatient US Fall, initial encounter 08/28/2024 Assessment & Plan (08/29/2024 9:02 AM TEAM LEADER): - Mechanical fall down ~13 steps - HCT, C spine CT Encounter for Medicare annual wellness exam 07/26 Assessment & Plan (08/18/2024 9:38 AM TEAM LEADER): A(n) yearly Medicare Annual Wellness Visit has [...] 03/05/2024 Assessment & Plan (09/02/2024 12:14 PM TEAM LEADER): - Cr 0.89 on admission 08/30 Cr [...] CDT): Assessment & Plan (09/02/2024 12:15 PM TEAM LEADER): - hypertensive emergency on admission, hydralazine given [...] Future Assessment & Plan (08/29/2024 9:07 AM TEAM LEADER): - SSI - DM diet Type 2 diabetes mellitus without complication Encounters Date Type Department Care Team Description 06/10/2025 Telephone [facility] Medicine Orthopaedic Surgery [address] [facility] 6th [place] [address] [place] [address] Florentino Mcgowan MD 06/04/2025 9:15 AM CDT - 06/04/2025 11:59 PM CDT Hospital Encounter [address] [address] Closed trimalleolar fracture of right ankle with routine healing, subsequent encounter Discharge Disposition: Discharge to home or self care 06/03/2025 Orders Only [facility] Medicine Orthopaedic Surgery [address] [facility] 6th [place] [address] [place] [address] Florentino Mcgowan MD Closed trimalleolar fracture of right ankle with routine healing, subsequent encounter (Primary Dx) 05/04/[address] [address] Sveta Engel MA Chart Review (Med adherence) 04/17/2025 ACO Medication Access [address] [address] Neisha Sheldon, [facility] 04/02/2025 Results Follow-Up [facility] Primary Care at [address] [phone] Elisabeth Aranda NP Hemoglobin A1c, Albumin Creatinine Ratio, Urine, Comprehensive metabolic panel, Additional followed-up results: 5 04/01/2025 10:40 AM CDT Lab [facility] Outpatient Lab - Outpatient Center at [address] [address] Type 2 diabetes mellitus with hyperlipidemia (HCC); Screening for thyroid disorder 04/01/2025 10:00 AM CDT Office Visit [facility] Primary Care at [address] [phone] Elisabeth Aranda NP Encounter to establish care [...] materials from doctor or pharmacy Sometimes 01/20/2025 [facility] Utilities Answer Date Recorded In the past 12 months has [employer], [employer], or water [employer] threatened to shut off services in your [...] How often do you attend chur or restoration services? More than 4 times per year 11/13/2024 Do you belong to any clubs o r organizations such as uatsdin groups, unions, fraternal or athletic groups, or [...] place to sleep or slept in a mcfp (including now)? No 11/15/2023 PHQ-9 Answer Date [...] time in the past 12 [address] [place], were you homeless or living in a mcfp (including now)? No 11/13/2024 Personal Safety Answer Date Recorded Have you ever been in or are you currently in a harmful physical or emotional relationship or is someone making you feel afraid or unsafe? Denies 10/31/2024 Comments No Sex and Gender Information Value Date Recorded Sex Assigned at Not on file Legal Sex Female 1:23 PM TEAM LEADER Gender Identity Not on file Sexual Orientation [...] 11/04/2024, 024 Medical Devices Implanted Type Area Optical Glass Sawyer Device Identifier Shelf Expiration Date Model / Serial / Lot Synthes Schanz 5mm 170mm 50mm Blunt Trocar Point Xlong Screw External 294.55 - [id number] Implanted:Qty: 2 on 08/29/2024 by Harjinder Obrien MD at [facility] Right: Ankle Synthes 294.55 / / Synthes Steinmann 5mm 5.5mm 275mm Central Thread Pin Fixation Large 293.890 - [id number] Implanted:Qty: 1 on 08/29/2024 by Harjinder Obrien MD at [facility] Right: Ankle Synthes 293.890 / / [employer] Screw Bone Cortical Threaded 2.7x80mm Ti Ar-21629-52 - [id number] Implanted:Qty: 2 on 09/01/2024 by Florentino Mcgowan MD at [facility] [employer] AR-90452-8 0 / / [employer] Plate Bone T Shape 6 Hole 2 Hole Head 2.7mm Ti Tb-48049m-88 - [id number] Implanted:Qty: 1 on 09/01/2024 by Florentino Mcgowan MD at [facility] [employer] AR-[id number]- 26 / / [employer] Screw Bone Cortical Threaded 2.7x42mm Ti Ar-54715-27 - [id number] Implanted:Qty: 1 on 09/01/2024 by Florentino Mcgowan MD at [facility] [employer] AR-12044-4 2 / / [employer] Screw Bone Cortical Threaded 2.7x34mm Ti Ar-21357-41 - [id number] Implanted:Qty: 1 on 09/01/2024 by Florentino Mcgowan MD at [facility] [employer] AR-47985-5 4 / / [employer] Screw Bone Cortical Threaded 2.7x36mm Ti Ar-06249-55 - [id number] Implanted:Qty: 1 on 09/01/2024 by Florentino Mcgowan MD at [facility] [employer] AR-43525-6 6 / / [employer] Screw Bone Threaded 2.7x40mm Ti Gl-78175a-29 - [id number] Implanted:Qty: 1 on 09/01/2024 by Florentino Mcgowan MD at [facility] [employer] AR-[id number]- 40 / / [employer] Low Profile Screws 3.5mm 48mm Modular Self Drill Solid Ankle Ar-8835-48 - [id number] Implanted:Qty: 1 on 09/01/2024 by Florentino Mcgowan MD at [facility] [employer] AR-8835-48 / / [employer] Screw Bone Cortical Solid Full Thread Non Locking 3.5x52mm Ss Ar-8835-52 - [id number] Implanted:Qty: 1 on 09/01/2024 by Florentino Mcgowan MD at [facility] [employer] AR-8835-52 / / 3.5 Cortical Screw Implanted:Qty: 1 on 09/01/2024 by Florentino Mcgowan MD at [facility] [employer] AR-8835-54 / / Description:inactive [employer] Screw Bone Cortical Threaded 2.7x20mm Ti Ar-40903-58 - [id number] Implanted:Qty: 1 on 09/01/2024 by Florentino Mcgowan MD at [facility] [employer] AR-81354-4 0 / / [employer] Screw Bone Cortical Threaded 2.7x22mm Ti Ar-03229-74 - [id number] Implanted:Qty: 1 on 09/01/2024 by Florentino Mcgowan MD at [facility] [employer] AR-75882-1 2 / / [employer] Plate Bone Locking 6 Hole Right Distal Fibula Internalbrace Ss Pv-5173al-07 - [id number] Implanted:Qty: 1 on 09/01/2024 by Florentino Mcgowan MD at [facility] [employer] AR-8943DR- 06 / / [employer] Low Profile Screws 3.5mm 12mm Modular Solid Hexalobe Self Tap Ar-8835-12 - [id number] Implanted:Qty: 2 on 09/01/2024 by Florentino Mcgowan MD at [facility] [employer] AR-8835-12 / / [employer] Low Profile Screws 2.7mm 16mm Modular Solid Hexalobe Lock Ankle Ar-8827l-16 - [id number] Implanted:Qty: 4 on 09/01/2024 by Florentino Mcgowan MD at [facility] [employer] AR-8827L-1 6 / / [employer] Low Profile Screws 2.7mm 14mm Modular Solid Hexalobe Lock Ankle Ar-8827l-14 - [id number] Implanted:Qty: 1 on 09/01/2024 by Florentino Mcgowan MD at [facility] [employer] AR-8827L-1 4 / / [employer] Low Profile Screws 3.5mm 14mm Modular Solid Hexalobe Lock Ankle Ar-8835l-14 - [id number] Implanted:Qty: 1 on 09/01/2024 by Florentino Mcgowan MD at [facility] [employer] AR-8835L-1 4 / / [employer] Restrata Wound Matrix 3mob6ow Synthetic Sheet Rwm1-2x2 - [id number] Implanted:Qty: 1 on 10/31/2024 by Florentino Mcgowan MD at [facility] [employer] RWM-1 2X2 / / Restrata Minimatrix Implanted:Qty: 1 on 10/31/2024 by Florentino Mcgowan MD at [facility] [employer]. 05/02/2026 [id number] / / [id number] [employer] Restrata Mini Matrix 250mg Micronized Powder Rmini-250 - [id number] Implanted:Qty: 1 on 10/31/2024 by Florentino Mcgowan MD at [facility] [employer] RMINI-250 / / [id number] Procedures Procedure Name Priority Date/Time Associated Diagnosis [...] HEPATITIS C ANTIBODY Routine 11/04/2024 9:02 PM TEAM LEADER COLONOSCOPY 07/22/2024 10:32 AM CDT HM DIABETES [...] Jalen Vazquez M.D. TH: TH Report ID: [id number] Reading Location: [id number] Procedure Note Jalen Vazquez MD - 06/10/2025 [...] Jalen Vazquez M.D. TH: TH Report ID: [id number] Reading Location: [place] [address] us Florentino Mcgowan MD IMG XR PROCEDURES [...] was last reviewed 2021. Testing performed by: [facility], [address] [place] [address]., [facility] Blood 04/01/2025 10:3 3 AM CDT 04/01/2025 4:05 PM CDT us Elisabeth Aranda TRAIN OPERATIONS MANAGER LAB BLOOD ORDERABLES Final Re sult RADHA [address] [facility] Department [place] [address] * Differential, auto (04/01/2025 10:33 AM CDT) Pathologist [facility] Neutrophil abs 2.07 1.50 - 6.50 K/cumm Comment:Testing performed by : [facility], [address] [place] [address]., [address] Imm gran abs 0.01 0.00 - 0.10 K/cumm CERNER CH Comment:Testing performed by : [facility], [address] [place] [address]., [address] Lymphocyte abs 1.80 0.80 - 3.30 K/cumm CERNER CH Comment:Testing performed by : [facility], [address] [place] [address]., [address] Monocyte abs 0.35 0.20 - 0.80 K/cumm CERNER CH Comment:Testing performed by : [facility], [address] [place] [address]., [address] Eosinophil abs 0.04 0.00 - 0.50 K/cumm CERNER CH Comment:Testing performed by : [facility], [address] [place] [address]., [address] Basophil abs 0.01 0.00 - 0.10 K/cumm CERNER CH Comment:Testing performed by : [facility], [address] [place] [address]., [address] Neutrophil pct 48.4 % CERNER CH Comment: Interpretive Data Percent cell count reference ranges are not reported, since discordance with absolute values may lead to misinterpretation of CBC data. Current Interpretive Data was last revised on 2018. Testing performed by: [facility], [address] [place] [address]., [address] Imm gran pct 0.2 % CERNER CH Comment: Interpretive Data Percent cell count reference ranges are not reported, since discordance with absolute values may lead to misinterpretation of CBC data. Current Interpretive Data was last revised on 2018. Testing performed by: [facility], [address] [place] [address]., [address] Lymphocyte pct 42.1 % CERNER CH Comment: Interpretive Data Percent cell count reference ranges are not reported, since discordance with absolute values may lead to misinterpretation of CBC data. Current Interpretive Data was last revised on 2018. Testing performed by: [address] [address] Monocyte pct 8.2 % CERNER CH Comment: Interpretive Data Percent cell count reference ranges are not reported, since discordance with absolute values may lead to misinterpretation of CBC data. Current Interpretive Data was last revised on 2018. Testing performed by: [address] [address] Eosinophil pct 0.9 % RADHA Comment: Interpretive Data Percent cell count reference ranges are not reported, since discordance with absolute values may lead to misinterpretation of CBC data. Current Interpretive Data was last revised on 2018. Testing performed by: [address] [address] Basophil pct 0.2 % RADHA Comment: Interpretive Data Percent cell count reference ranges are not reported, since discordance with absolute values may lead to misinterpretation of CBC data. Current Interpretive Data was last revised on 2018. Testing performed by: [address] [address] Blood 04/01/2025 10:3 3 AM CDT 04/01/2025 3:53 PM CDT us Elisabeth Aranda TRAIN OPERATIONS MANAGER LAB BLOOD ORDERABLES Final Re sult [address] Department [place] [address] * (ABNORMAL) CBC with auto differential (04/01/2025 10:33 AM CDT) WBC 4.28 3.80 - 9.90 K/cumm Comment:Testing performed by : [address] [address] Hgb 11.8(L) 11.9 - 15.5 g/dL RADHA Comment:Testing performed by : [address] [address] Hct 38.6 35.6 - 45.5 % RADHA Comment:Testing performed by : [address] [address] Plt 198 150 - 400 K/cumm RADHA Comment:Testing performed by : [address] [address] MPV 11.0 9.1 - 12.3 fL [facility] Comment:Testing performed by : [facility], [address] [place] [address], [address] RBC 4.22 3.90 - 5.20 M/cumm RADHA Comment:Testing performed by : [address], [address] MCV 91.5 81.3 - 96.4 fL RADHA Comment:Testing performed by : [facility], [address] [place] [address], [address] MCH 28.0 27.1 - 33.3 pg CERWILFREDO Comment:Testing performed by : [address], [address] MCHC 30.6(L) 32.3 - 35.7 g/dL RADHA Comment:Testing performed by : [address], [address] RDW CV 16.0(H) 11.1 - 14.9 % RDAHA Comment:Testing performed by : [address], [address] RDW SD 53.6(H) 35.7 - 48.1 fL [facility] Comment:Testing performed by : [address], [address] NRBC abs 0.00 0.00 - 0.01 K/cumm [facility] Comment:Testing performed by : [address], [address] Blood 04/01/2025 10:3 3 AM CDT 04/01/2025 3:53 PM CDT us Elisabeth Aranda TRAIN OPERATIONS MANAGER LAB BLOOD ORDERABLES Final Re sult [address] Department [place] [address] * (ABNORMAL) Albumin Creatinine Ratio, Urine (04/01/2025 10:33 AM CDT) Albumin Ur 38.6 mg/L Comment: Interpretive Data No reference range established. Current interpretive data was last revised 2019. Testing performed by: [facility], [address] [place] [address]., [address] Creatinine Ur 122.1 mg/dL RADHA Comment: Interpretive Data No reference range established. Current interpretive data was last revised 2019. Testing performed by: [facility], [address] [place] [address]., [address] Albumin Creatinine Ratio, Ur 32(H) 1 - 29 mg/g RADHA Comment:Testing performed by : [facility], [address] [place] [address]., [address] Urine 04/01/2025 10:3 3 AM CDT 04/01/2025 3:54 PM CDT Elisabeth Aranda TRAIN OPERATIONS MANAGER LAB URINE ORDERABLES Final Re sult Performing Organization Address [facility] Co de Phone Number RADHA [place] [address] [address] Department [place] [address] * TSH (04/01/2025 10:33 AM CDT) Thyroid Stimulating Hormone 1.63 0.30 - 4.20 mcIUnit/mL Comment:Testing performed by : [facility], [address] [place] [address], [address] Blood 04/01/2025 10:3 3 AM CDT 04/01/2025 3:53 PM CDT Elisabeth Aranda TRAIN OPERATIONS MANAGER LAB BLOOD ORDERABLES Final Re sult Performing Organization Address [facility] Co de Phone Number RADHA [address] [address] Department [place] [address] * (ABNORMAL) Hemoglobin A1c (04/01/2025 10:33 AM CDT) Hgb A1C 6.5(H) 4.0 - 5.6 % Comment:Testing performed by : [address] [address] Estimated Average Glucose 140 mg/dL RADHA Comment: The ADA recommends reporting an estimated Average Glucose (eAG) with all Hemoglobin A1c results using the equation derived from a study of 507 normal and diabetic adults. Minority populations were underrepresented and children were not included. (Diabetes Care 31:1825-7869, 2008). The eAG is not equivalent to a fasting glucose. Testing performed by: [facility], [address] [place] [address]., [address] Blood 04/01/2025 10:3 3 AM CDT 04/01/2025 3:53 PM CDT us Elisabeth Aranda NP LAB BLOOD ORDERABLES Final Re sult RADHA KLINE [address] [place] [address] Department [place] [address] * Lipid panel (04/01/2025 10:33 [...] last revised on 2018. Testing performed by: [facility], [address] [place] [address]., [address] Triglycerides 89 <=149 mg/dL RADHA KLINE Comment: [...] last revised on 2018. Testing performed by: [facility], [address] [place] [address]., [address] HDL 68 >=40 mg/dL [facility] Comment: Interpretive Data Ages < or [...] last revised on 2018. Testing performed by: [facility], [address] [place] [address]., [address] LDL, calculated 74 <=129 mg/dL [facility] Comment: Interpretive Data Ages < or [...] last revised on 2024. Testing performed by: [address] [address] Non-HDL Cholesterol 90 mg/dL [facility] Comment: Interpretive Data Ages < [...] last revised on 2018. Testing performed by: [address] [address] Chol/HDL ratio 2 CERNER CH Comment:Testing performed by : [address] [address] Blood 04/01/2025 10:3 3 AM CDT 04/01/2025 3:53 PM CDT us Elisabeth Aranda TRAIN OPERATIONS MANAGER LAB BLOOD ORDERABLES Final Re sult [address] Department [place] [address] * (ABNORMAL) Comprehensive metabolic panel (04/01/2025 10:33 AM CDT) Sodium 145 135 - 145 mmol/L Comment:Testing performed by : [address] [address] Potassium, pl 4.3 3.3 - 4.9 mmol/L CERNER CH Comment:Testing performed by : [address] [address] Chloride 105 97 - 110 mmol/L CERNER Comment:Testing performed by : [address] [address] CO2 27 22 - 32 mmol/L CERNER CH Comment:Testing performed by : [address] [address] Anion gap 13 2 - 15 mmol/L CERNER CH Comment:Testing performed by : [address] [address] BUN 27(H) 6 - 25 mg/dL CERNER CH Comment:Testing performed by : [address] [address] Creatinine 0.91 0.60 - 1.10 mg/dL CERNER CH Comment:Testing performed by : [address] [address] Glucose 114 70 - 199 mg/dL CERNER [...] was last revised 2022. Testing performed by: [address] [address] Calcium 10.0 8.5 - 10.3 mg/dL CERNER CH Comment:Testing performed by : [address] [address] Bilirubin, total 0.4 0.1 - 1.2 mg/dL CERNER CH Comment:Testing performed by : [address] [address] Protein, pl 8.3 6.5 - 8.5 g/dL CERNER CH Comment:Testing performed by : [address] [address] Albumin 4.5 3.5 - 5.0 g/dL CERNER CH Comment:Testing performed by : [address] [address] Alk phos 71 40 - 130 Units/L CERNER CH Comment:Testing performed by : [address] [address] ALT 18 7 - 45 Units/L CERNER CH Comment:Testing performed by : [address], [address] AST 35 10 - 45 Units/L CERNER CH Comment:Testing performed by : [address] [address] Blood 04/01/2025 10:3 3 AM CDT 04/01/2025 3:53 PM CDT us Elisabeth Aranda TRAIN OPERATIONS MANAGER LAB BLOOD ORDERABLES Final Re sult RADHA [address] [address] Department [place] [address] * Hepatitis C antibody Blood (11/04/2024 9:02 PM TEAM LEADER) Hep C Ab Nonreactive Nonreactive Comment:Antibodies to HCV no t detected. Does NOT exclude the possibility of recent exposure to HCV. Current interpretive data was last revised on 22 Blood 11/04/2024 9:02 PM TEAM LEADER 11/04/2024 9:15 PM TEAM LEADER us Notinfile Unknown LAB MICROBIOLOGY - GENERAL ORD ERABLES Final Result Performing Organization Address City/[facility]/ZIP Co de Phone Number RADHA [facility] Department [place] [address] * Colonoscopy (07/22/2024 10:32 AM CDT) Anatomical Region Laterality Modality Other Narrative Procedure Note Piero Nieves MD - 07/22/2024 10:32 AM CDT [facility] Endoscopy Lab Patient Name: Rylee Snell Procedure Date: 07/22/2024 10:32AM Date of : 1950 Admit Type: Outpatient Age: 73 Gender: Female Note Status: Finalized Attending MD: Piero Nieves M.D. Procedure Date: 07/22/2024 Procedure: Colonoscopy Indications: Screening for colorectal malignant neoplasm Providers: Piero Nieves M.D., KEVIN Deutsch (Anesthesia Staff), Rimma Medina RN, Marya Mcknight, Machine Gun Mechanic Referring MD: Aaron Camargo M.D. Medicines: Monitored [...] bowel preparation was evaluated using the BBPS (B[place] Bowel Preparation Scale)with scores of: Right Colon [...] polyp removal. Procedure Code(s): --- Professional --- 65297, Colonoscopy, flexible; with endoscopicmucosal resection 90877, 59, Colonoscopy, flexible; with biopsy,single or multiple Diagnosis Code(s): --- Professional --- D12.3, Benign neoplasm of transverse colon (hepatic flexure or splenic flexure) Z12.11, Encounter for screening for malignantneoplasm of colon K64.4, Residual hemorrhoidal skin tags CPT copyright 2020 [employer]. All rights reserved. The codes documented in this report are preliminary and upon ceramic research engineer reviewmay be revised to meet current compliance [...] Most Recently Relevant to Health Maintenance Insurance [facility] MEDICARE Advance Directives For more information, please contact: [phone] * Full Code (Latest Code Status on File) Date Activated Date Inactivated Comments 10/28/2024 6:50 PM 11/05/2024 7:53 PM * Full Code Date Activated Date Inactivated Comments 08/29/2024 3:16 AM 09/02/2024 11:09 PM * Full Code Date Activated Date Inactivated Comments 11/14/2023 10:48 PM 11/17/2023 6:34 PM Care Teams Bowling Pin Refinisher Relationship Specialty Start Date End Date Elisabeth Aranda NP [address] [facility] [address] [place] [address] PCP - General Family Medicine 04/01/25 Aaron Camargo MD [address] [facility] [address] [place] [address] Family Medicine 11/14/24 Florentino Mcgowan MD [address] [facility] [address] [place] [address] Consulting Physician Orthopedic Surgery 10/08/24 Juan Jose Caldwell MD [address] [place] [address] Consulting Physician Infectious Diseases 11/02/24
[2025-06-17 10:55] LABS: Hematocrit 34.2 % (37.0-47.0); Hemoglobin 10.7 g/dL (12.0-15.0); Immature Granulocyte Percent A 0.3 % (0-0.5); Lymphocytes Absolute Auto 1.41 K/mm3 (0.9-3.2); Mean Corpuscular HGB Conc 31.3 g/dl (32-36); Mean Corpuscular Hemoglobin 25.8 pg (26-34); Mean Corpuscular Volume 82.4 fl (80-100); Nucleated Red Blood Cells Absolute Auto 0.000 K/mm3 (0.0-0.012); Nucleated Red Blood Cells Perc 0.0 % (0.0-0.2); Platelet Count Result 230 k/mm3 (150-375); Red Blood Count 4.15 M/mm3 (4.2-5.4); White Blood Count 4.0 K/mm3 (4.5-10.0)
[2025-06-17 11:02] VITALS: BP 153/99; O2SAT 100
[2025-06-17 11:13] LABS: Alanine Aminotransferase 67 U/L (6-35); Albumin Level 3.9 g/dL (3.5-5.1); Alkaline Phosphatase 88 U/L (38-126); Anion Gap 9 mmol/L (4-12); Aspartate Amino Transferase 122 U/L (14-36); Bilirubin,Total 2.0 mg/dL (0.2-1.3); Blood Urea Nitrogen 18 mg/dL (7-17); Calcium 8.6 mg/dL (8.4-10.2); Carbon Dioxide 29 mmol/L (22-30); Chloride 102 mmol/L (98-107); Estimated CRCL calculation 47 ml/min; Estimated Glomerular Filt Rate 56; Glucose 108 mg/dL (65-110); Potassium 3.4 mmol/L (3.4-5.0); Sodium 140 mmol/L (137-145); Total Protein 8.0 g/dL (6.3-8.2)
[2025-06-17] MEDS: HYDROcodone/acetaminophen (*CRX) 5-325 MG TABLET 1 TAB PO (12:10)
--- NOTE | 2025-06-17 12:57 | ED_ITS ---
HPI - Wound/Laceration General Chief Complaint: Wound/Laceration Stated Complaint: boil that burst on recent surgical site (rt ankle) Time Seen by Provider: 06/17/25 09:54 Source: patient Mode of arrival: ambulatory Limitations: no limitations History of Present Illness HPI narrative: 74-year-old with a history of MRSA presents to the ER with a complains of wound to her right foot. Patient states that she had a blister which ruptured. She does follow with the Wound Care at [facility]. She denies any fever or chills. Onset (ago): unknown Extremity Location: Right: foot Related Data Allergies Allergy/AdvReac Type Severity Reaction Status Date / Time No Known Allergies Allergy Verified 11/10/24 14:58 Review of Systems 2 Constitutional: Constitutional: Reports no additional constitutional complaints Eyes: Eyes: Reports no additional eye complaints ENT: Reports system reviewed and no additional complaints, except as documented Cardiovascular: Cardiovascular: Reports no additional cardiovascular complaints Respiratory: Respiratory: Reports no additional respiratory complaints Gastrointestinal: Gastrointestinal: Reports no additional gastrointestinal complaints Musculoskeletal: Musculoskeletal: Reports as per HPI Integumentary/Breasts: Skin/Breast: Reports as per HPI Neurologic: Reports system reviewed and no additional complaints, except as documented Exam 2 Narrative: GENERAL: Well-appearing, well-nourished, and in no acute distress. HEAD: Normocephalic, atraumatic. EYES: PERRLA and EOMI. ENT: Nares clear, no rhinorrhea or epistaxis. Mucous membranes moist. NECK: Supple. CHEST: Clear to auscultation. No respiratory distress. HEART: Regular rate and rhythm. No murmur heard. Normal peripheral pulses. EXTREMITIES: Normal range of motion. No edema. has ulcer on the dorsum of the right foot , no sign of infection SKIN: Warm, dry, no rash. NEURO: No focal deficits. Alert and oriented x3. PSYCH: Normal mood and affect. Course Course Emergency Course: informed pt about her lab work , wound care was consulted ,dressing was done by wound care nurse with silver dressing , she feels good to go home , i advised her to continue home meds , follow with her PMD or wound care doctor. Vital Signs Vital signs: Vital Signs Temperature 36.6 C 06/17/25 09:33 Pulse Rate 149 H 06/17/25 09:33 Respiratory Rate 16 06/17/25 09:33 Blood Pressure 154/119 H 06/17/25 09:33 Pulse Oximetry 98 06/17/25 09:33 Oxygen Delivery Room Air 06/17/25 09:33 Temperature 36.6 C 06/17/25 09:33 Pulse Rate 149 H 06/17/25 09:33 Respiratory Rate 16 06/17/25 09:33 Blood Pressure 154/119 H 06/17/25 09:33 Pulse Oximetry 98 06/17/25 09:33 Oxygen Delivery Room Air 06/17/25 09:33 MDM - Wound/Laceration Lab Data 06/17/25 10:46 06/17/25 10:46 Labs: Lab Results 06/17/25 Range/Units 10:46 WBC 4.0 L (4.5-10.0) K/mm3 RBC 4.15 L (4.2-5.4) M/mm3 Hgb 10.7 L (12.0-15.0) g/dL Hct 34.2 L (37.0-47.0) % MCV 82.4 (80-100) fl MCH 25.8 L (26-34) pg MCHC 31.3 L (32-36) g/dl RDW 19.9 H (11.5-14.5) % Plt Count 230 (150-375) k/mm3 MPV 10.3 (7.4-10.4) fl Immature Gran % (Auto) 0.3 (0-0.5) % Neut % (Auto) 54.0 (45.5-73.1) % Lymph % (Auto) 35.5 (18.3-44.2) % Dickson % (Auto) 8.6 H (2.6-8.5) % Eos % (Auto) 0.8 (0-4.4) % Baso % (Auto) 0.8 (0.2-1.2) % Lymph # (Auto) 1.41 (0.9-3.2) K/mm3 Dickson # (Auto) 0.3 (0.1-0.6) K/mm3 Eos # (Auto) 0.0 (0-0.3) K/mm3 Baso # (Auto) 0.0 (0.0-0.1) K/mm3 Abs Immat Gran (auto) 0.01 (0.00-0.031) K/mm3 Absolute Neuts (auto) 2.2 (1.3-6.7) K/mm3 Absolute Nucleated RBC 0.000 (0.0-0.012) K/mm3 Nucleated RBC % 0.0 (0.0-0.2) % Sodium 140 (137-145) mmol/L Potassium 3.4 (3.4-5.0) mmol/L Chloride 102 (98-107) mmol/L Carbon Dioxide 29 (22-30) mmol/L Anion Gap 9 (4-12) mmol/L BUN 18 H (7-17) mg/dL Creatinine 0.97 (0.7-1.0) mg/dL Estim Creat Clear Calc 47 ml/min Estimated GFR 56 L (59 - ) Glucose 108 (65-110) mg/dL Calcium 8.6 (8.4-10.2) mg/dL Total Bilirubin 2.0 H (0.2-1.3) mg/dL AST 122 H (14-36) U/L ALT 67 H (6-35) U/L Alkaline Phosphatase 88 (38-126) U/L Total Protein 8.0 (6.3-8.2) g/dL Albumin 3.9 (3.5-5.1) g/dL Discharge Plan Discharge Clinical Impression: Non-healing wound Patient Disposition: Home Condition: Stable Instructions: Chronic Wounds (ED) Additional Instructions: continue home meds , follow with your wound care doctor for further management Patient Language: Welsh Prescriptions: No Action clindamycin HCl 300 mg capsule 300 mg PO Q6H 10 Days Qty: 40 0RF hydrocodone-acetaminophen 5-325 mg tablet 1 tablet PO Q6H PRN (Reason: pain) 3 Days Qty: 12 0RF Follow-up/Referrals: Raman,Aaron Mauricio MD [Primary Care Provider, Unknown] Time of Disposition: 12:59
[2025-06-17 13:07] VITALS: BP 180/90; PULSE 98; RESP 20; O2SAT 100
== END 2025-06-17 13:10 | disposition home or self-care (01) ==
PROVIDERS: Emergency Provider Family Medicine; PCP Family Medicine
DX: S91.001A Unspecified open wound, right ankle, initial encounter (principal); X58.XXXA Exposure to other specified factors, initial encounter
CPT/HCPCS: 36415; 80053; 85025; 87040; 99283; A9270

== ENCOUNTER 2025-07-10 07:55 | Emergency (ER) | payer MEDICARE, SELFPAY ==
--- NOTE | ~2025-07-10 | XR_ITS ---
EXAMINATION: XR chest 2V, 07/10/2025 9:30 CDT HISTORY: edema COMPARISON: No comparisons available. Technique: 2 views obtained. Findings: Mild pulmonary venous congestion. No pneumothorax. Moderate cardiomegaly. Mediastinal and hilar contours are within normal limits. Bony thorax no acute abnormality. Impression: CHF Reviewed, dictated and finalized at location P. Impression: CHF
[2025-07-10 08:02] VITALS: BP 149/99; PULSE 101; RESP 18; TEMP 36.6; O2SAT 100
--- OUTSIDE RECORDS SUMMARY | 2025-07-10 08:02 | XMS_ITS | Clinical Summary ---
Author Organization [facility] Address [address] [place] [address] Care Team Providers Care Consumer Relations Specialist Name Role Phone Aaron Camargo MD Unavailable [phone] Florentino Mcgowan MD Unavailable [phone] Juan Jose Caldwell MD Unavailable Elisabeth Aranda NP Primary Care Provider [phone] Allergies No known active allergies Medications sodium chloride 0.9% injection Administer 10-40 mL into catheter every 12 (twelve) hours Active Additional Information Patient not taking.Reported on 06/23/2025 sodium chloride 0.9% injection Administer 10-20 mL into catheter as needed for line care Active Additional Information Patient not taking.Reported on 06/23/2025 heparin 10 unit/mL syringeIndicatio ns:Maintain Patency of Indwelling Vascular Catheter Administer 2-5 mL (20-50 Units total) into catheter as needed (with each use) Active Additional Information Patient not taking.Reported on 06/23/2025 heparin 10 unit/mL syringeIndicatio ns:Maintain Patency of Indwelling Vascular Catheter Administer 5 mL (50 Units total) into catheter every 12 (twelve) hours Active Additional Information Patient not taking.Reported on 06/23/2025 alteplase (CATHFLO ACTIVASE) 2 mg injectionIndicat ions:Acute [...] Active Additional Information Patient not taking.Reported on 06/23/2025 gabapentin (NEURONTIN) 300 mg capsule Take 1 capsule (300 mg total) by mouth 3 (three) times a day 90 capsule 5 Active Additional Information Patient not taking.Reported on 06/23/2025 atorvastatin (LIPITOR) 10 mg tabletIndication s:hyperlipidemia Take [...] mouth daily 90 tablet 3 5 Active sertraline (ZOLOFT) 25 mg tablet Take 1 tablet (25 mg total) by mouth daily 30 tablet 1 025 Active Active Problems Problem Noted Date Diagnosed Date Severe cognitive impairment 06/23/2025 Assessment & Plan (06/23/2025 4:05 PM CDT): Orders: MRI Brain Cognitive Impairment W WO Contrast; Future Ambulatory referral to Neuropsychology; Future Incontinence of feces 06/23/2025 Assessment & Plan (06/23/2025 4:05 PM CDT): Orders: Ambulatory referral to Gastroenterology; Future Severe episode of recurrent major depressive disorder, without psychotic features 06/23/2025 Assessment & Plan (06/23/2025 4:05 PM CDT): TOM (generalized anxiety disorder) 06/23/2025 Assessment & Plan (06/23/2025 4:05 PM CDT): Post-menopausal 04/01/2025 Assessment & Plan (04/01/2025 4:13 [...] Infection of lower extremity associated with vic tinsley 01/02/2025 Assessment & Plan (06/23/2025 4:05 PM CDT): Orders: Ambulatory referral to Wound Clinic; Future Assessment & Plan (02/19/2025 7:45 PM CDT): [...] 10/28/2024 Assessment & Plan (11/03/2024 1:32 PM PLASTER WHITTLER): Rylee York is a 74 y.o. female [...] by ID to place PICC line for shelter IV antibiotics - ID is formally signing off but will continue to monitor patient peripherally while inpatient. Recommending to treat right ankle infection with retained hardware for 6 weeks (10/29/24-12/10/24) with daptomcyin and metronidazole with possible early PO switch at ID follow up. Please see sign off note from 11/03/24 for complete recommendations. Acute pain 08/30/2024 Assessment & Plan (08/30/2024 2:23 PM PLASTER WHITTLER): 08/30 oxycodone adjusted to tramadol per pt request Trimalleolar fracture of right ankle 08/29/2024 Assessment & Plan (06/23/2025 4:05 PM CDT): Orders: Ambulatory referral to Wound Clinic; Future Assessment & Plan (09/01/2024 12:37 PM PLASTER WHITTLER): - Ortho consult - OR 08/29 Ex-Fix [...] 08/29/2024 Assessment & Plan (09/02/2024 12:15 PM PLASTER WHITTLER): 08/29: new admission overnight, OR with ortho 09/01: OR with ortho for ORIF of R ankle, PT/OT, ADD 09/02 09/02: Patient is medically stable for discharge, SW/CM updated. Discharge pending nothing, patient discharging home Treatment note [x] HLD (hyperlipidemia) 08/29/2024 Assessment & Plan (04/01/2025 4:13 PM CDT): Assessment & Plan (08/29/2024 9:47 AM PLASTER WHITTLER): Atorvastatin 10mg continued Goiter, nodular 08/29/2024 Assessment & Plan (09/02/2024 12:20 PM PLASTER WHITTLER): #Large multinodular goiter - Incidental finding on C spine CT - Was previously seen on CT in Oct 2023, lost to follow up - Patient is aware of this incidental finding (discussed on 08/29) - TSH wnl - Thyroid ultrasound ordered while inpatient, pt needs outpatient US Fall, initial encounter 08/28/2024 Assessment & Plan (08/29/2024 9:02 AM PLASTER WHITTLER): - Mechanical fall down ~13 steps - HCT, C spine CT Encounter for Medicare annual wellness exam 07/26 Assessment & Plan (08/18/2024 9:38 AM PLASTER WHITTLER): A(n) yearly Medicare Annual Wellness Visit has [...] 03/05/2024 Assessment & Plan (09/02/2024 12:14 PM PLASTER WHITTLER): - Cr 0.89 on admission 08/30 Cr [...] 11/14/2023 Essential hypertension 05/03/2011 Assessment & Plan (06/23/2025 4:05 PM CDT): Assessment & Plan (04/01/2025 4:13 PM CDT): Assessment & Plan (09/02/2024 12:15 PM PLASTER WHITTLER): - hypertensive emergency on admission, hydralazine given [...] Future Assessment & Plan (08/29/2024 9:07 AM PLASTER WHITTLER): - SSI - DM diet Type 2 diabetes mellitus without complication Encounters Date Type Department Care Team Description 06/24/2025 Telephone [facility] Primary Care at [address] [place] [address] Elisabeth Aranda NP Call Back 06/23/2025 11:00 AM CDT Office Visit [facility] Primary Care at [address] [place] [address] Elisabeth Aranda NP Severe cognitive impairment (Primary Dx); Incontinence of feces, unspecified fecal incontinence type; Severe episode of recurrent major depressive disorder, without psychotic features (HCC); TOM (generalized anxiety disorder); Closed trimalleolar fracture of right ankle with delayed healing, subsequent encounter; Infection of lower extremity associated with hardware; Essential hypertension 06/10/2025 Telephone [facility] Orthopaedic Surgery [address] [facility] 6th [place] [address] [place] [address] Florentino Mcgowan MD 06/04/2025 9:15 AM CDT - 06/04/2025 11:59 PM CDT Hospital Encounter [facility] [address] [place] [address] Closed trimalleolar fracture of right ankle with routine healing, subsequent encounter Discharge Disposition: Discharge to home or self care 06/03/2025 Orders Only [facility] Medicine Orthopaedic Surgery [address] [facility] [address] [place] [address] [place] [address] Florentino Mcgowan MD Closed trimalleolar fracture of right ankle with routine healing, subsequent encounter (Primary Dx) 05/04/2025 Telephone [facility] Organization [address] [place] [address] Sveta Engel MA Chart Review (Med adherence) 04/17/2025 [facility] Medication Access [address] [address] Neisha Sheldon CPhT from Last 3 Months Immunizations Immunization Administration Dates Next Due Influenza, Trivalent, High D ose, Split, Preservative Free, Intramuscular 11/05/2024 Influenza, Unspecified 06/22/2025(Deferr ed: Patient Refused),08/18/2024(Deferred: Patient Refused),09/24/2023(Deferred: Patient Refused) Pneumococcal Conjugate Pcv20 [...] materials from doctor or pharmacy Sometimes 01/20/2025 [facility] Utilities Answer Date Recorded In the past 12 months has th e [employer], gas, oil, or water company threatened to [...] 11/13/2024 How often do you attend chur ch or restorationism services? More than 4 times per year 11/13/2024 Do you belong to any clubs o r organizations such as latter-day groups, unions, fraternal or athletic groups, or [...] more points, staff should administer the PHQ-9) 3 06/23/2025 Hunger Vital Sign Answer Date Recorded Within the past 12 months, y ou worried that your food would run out before you got the money to buy more. Never true 11/13/19 Within the past 12 months, t he [...] PHQ-9 Answer Date Recorded PHQ-9 Total Score 18 06/23/2025 Housing Stability Vital Sign Answer Lee e Recorded In the last 12 months, was t here a time when you were not able to pay the mortgage or rent on time? No 11/13/2024 In the past 12 months, how m any times have you moved where you were living? 0 11/13/2024 At any time in the past 12 m [facility], were you homeless or living in [...] on file Legal Sex Female 1:23 PM PLASTER WHITTLER Gender Identity Not on file Sexual Orientation Not on file Obstetrics History Last Filed Vital Signs Vital Sign Reading Time Taken Comments Blood Pressure 122/84 06/23/2025 10:17 AM CDT Pulse 114 06/23/2025 10:17 AM CDT Temperature 36.1 C (97 F) 06/23/2025 10:17 AM CDT Respiratory Rate 22 06/23/2025 10:17 AM CDT Oxygen Saturation 98% 06/23/2025 10:17 AM CDT Inhaled Oxygen Concentration - - Weight 87.1 kg (192 lb) 06/23/2025 10:17 AM CDT Height 157.5 cm (5' 2) 06/23/2025 10:17 AM CDT Body Mass Index 35.12 06/23/2025 10:17 AM CDT Plan of Treatment Health Maintenance [...] Albumin Creatinine Ratio, Urine 04/01/2026 04/01/2025, 03/05/2024 Foot Exam 04/01/2026 04/01/2025, 02/22, 03/05/2024 Lipid Panel 04/01/2026 04/01/2025, 1201/2024, 11/17/2023 eGFR 04/01/2026 04/01/2025, 11/22, 12/03/2024, Additional history exists Depression Screening 06/23/2026 06/23/2025, 06/23/2025, 04/01/2025, Additional history exists Colon Cancer Screening-Colonoscopy 07/22/2027 07/22/2024, 05/16/2024 Pneumococcal vaccine 65+ Completed 02/05/2024 Hepatitis B Screening Completed 11/04/2024 Hepatitis C Screening Completed 11/04/2024, 024 Medical Devices Implanted Type Area Captain Waiter/Waitress Device Identifier Shelf Expiration Date Model / Serial / Lot Synthes Schanz 5mm 170mm 50mm Blunt Trocar Point Xlong Screw External 294.55 - [id number] Implanted:Qty: 2 on 08/29/2024 by Harjinder Obrien MD at [facility] Right: Ankle Synthes 294.55 / / Synthes Steinmann 5mm 5.5mm 275mm Central Thread Pin Fixation Large 293.890 - [id number] Implanted:Qty: 1 on 08/29/2024 by Harjinder Obrien MD at [facility] Right: Ankle Synthes 293.890 / / [employer] Screw Bone Cortical Threaded 2.7x80mm Ti Ar-61886-32 - [id number] Implanted:Qty: 2 on 09/01/2024 by Florentino Mcgowan MD at [facility] [employer] AR-33406-4 0 / / [employer] Plate Bone T Shape 6 Hole 2 Hole Head 2.7mm Ti [id number]-[id number]-87 - [id number] Implanted:Qty: 1 on 09/01/2024 by Florentino Mcgowan MD at [facility] [employer] AR-[id number]- 26 / / [employer] Screw Bone Cortical Threaded 2.7x42mm Ti Ar-34968-50 - [id number] Implanted:Qty: 1 on 09/01/2024 by Florentino Mcgowan MD at [facility] [employer] AR-44572-2 2 / / [employer] Screw Bone Cortical Threaded 2.7x34mm Ti Ar-74057-65 - [id number] Implanted:Qty: 1 on 09/01/2024 by Florentino Mcgowan MD at [facility] [employer] AR-13695-3 4 / / [employer] Screw Bone Cortical Threaded 2.7x36mm Ti Ar-37669-28 - [id number] Implanted:Qty: 1 on 09/01/2024 by Florentino Mcgowan MD at [facility] [employer] AR-67004-0 6 / / [employer] Screw Bone Threaded 2.7x40mm Ti Uf-64793x-64 - [id number] Implanted:Qty: 1 on 09/01/2024 by Florentino Mcgowan MD at [facility] [employer] AR-[id number]- 40 / / [employer] Low Profile Screws 3.5mm 48mm Modular Self Drill Solid Ankle Ar-8835-48 - [id number] Implanted:Qty: 1 on 09/01/2024 by Florentino Mcgowan MD at [facility] [employer] AR-8835-48 / / [employer] Screw Bone Cortical Solid Full Thread Non Locking 3.5x52mm Ss Ar-8835-52 - [id number] Implanted:Qty: 1 on 09/01/2024 by Florentino Mcgowan MD at [facility] [employer] AR-8835-52 / / 3.5 Cortical Screw Implanted:Qty: 1 on 09/01/2024 by Florentino Mcgowan MD at [facility] [employer] AR-8835-54 / / Description:inactive [employer] Screw Bone Cortical Threaded 2.7x20mm Ti Ar-64847-06 - [id number] Implanted:Qty: 1 on 09/01/2024 by Florentino Mcgowan MD at [facility] [employer] AR-77453-6 0 / / [employer] Screw Bone Cortical Threaded 2.7x22mm Ti Ar-57642-59 - [id number] Implanted:Qty: 1 on 09/01/2024 by Florentino Mcgowan MD at [facility] [employer] AR-98730-2 2 / / [employer] Plate Bone Locking 6 Hole Right Distal Fibula Internalbrace Ss So-8854ic-03 - [id number] Implanted:Qty: 1 on 09/01/2024 by Florentino Mcgowan MD at [facility] [employer] AR-8943DR- 06 / / [employer] Low Profile Screws 3.5mm 12mm Modular Solid Hexalobe Self Tap Ar-8835-12 - [id number] Implanted:Qty: 2 on 09/01/2024 by Florentino Mcgowan MD at [facility] [employer] AR-8835-12 / / [employer] Low Profile Screws 2.7mm 16mm Modular Solid Hexalobe Lock Ankle Ar-8827l-16 - [id number] Implanted:Qty: 4 on 09/01/2024 by Florentino Mcgowan MD at [facility] [employer] AR-8827L-1 6 / / [employer] Low Profile Screws 2.7mm 14mm Modular Solid Hexalobe Lock Ankle Ar-8827l-14 - [id number] Implanted:Qty: 1 on 09/01/2024 by Florentino Mcgowan MD at [facility] [employer] AR-8827L-1 4 / / [employer] Low Profile Screws 3.5mm 14mm Modular Solid Hexalobe Lock Ankle Ar-8835l-14 - [id number] Implanted:Qty: 1 on 09/01/2024 by Florentino Mcgowan MD at [facility] [employer] AR-8835L-1 4 / / [employer] Restrata Wound Matrix 5msu3su Synthetic Sheet Rwm1-2x2 - [id number] Implanted:Qty: 1 on 10/31/2024 by Florentino Mcgowan MD at [facility] [employer] RWM-1 2X2 / / Restrata Minimatrix Implanted:Qty: 1 on 10/31/2024 by Florentino Mcgowan MD at [facility] 05/02/2026 [id number] / / [id number] [employer] Restrata Mini Matrix 250mg Micronized Powder Rmini-250 - [id number] Implanted:Qty: 1 on 10/31/2024 by [facility] RMINI-250 / / [id number] Procedures Procedure Name Priority Date/Time Associated Diagnosis [...] HEPATITIS C ANTIBODY Routine 11/04/2024 9:02 PM PLASTER WHITTLER COLONOSCOPY 07/22/2024 10:32 AM CDT DIABETES EYE EXAM Routine 04/02/2024 2:30 PM [...] Jalen Vazquez M.D. TH: TH Report ID: [id number] Reading Location: [id number] Procedure Note Jalen Vazquez MD - 06/10/2025 [...] Electronically signed by Jalen Vazquez M.D. TH: Report ID: [id number] Reading Location: [place] [address] Florentino Mcgowan MD IMG XR PROCEDURES Final [...] was last reviewed 2021. Testing performed by: [facility], [address] [place] [address], [place]., [address] Blood 04/01/2025 10:3 3 AM CDT 04/01/2025 4:05 PM CDT Elisabeth Aranda NP LAB BLOOD ORDERABLES Final Re sult Performing Organization Address [facility] Co de Phone Number NAE[facility]A [facility] [address] [facility] Department [place] [address] * (ABNORMAL) Albumin Creatinine Ratio, Urine (04/01/2025 10:33 AM CDT) Albumin Ur 38.6 mg/L Comment: Interpretive Data No reference range established. Current interpretive data was last revised 2019. Testing performed by: [address] [address] Creatinine Ur 122.1 mg/dL RADHA Comment: Interpretive Data No reference range established. Current interpretive data was last revised 2019. Testing performed by: [address] [address] Albumin Creatinine Ratio, Ur 32(H) 1 - 29 mg/g RADHA Comment:Testing performed by : [address] [address] Urine 04/01/2025 10:3 3 AM CDT 04/01/2025 3:54 PM CDT Elisabeth Aranda NP LAB URINE ORDERABLES Final Re sult Performing Organization Address [facility] de Phone Number NAEEM[address] of [place] [address] * (ABNORMAL) Hemoglobin A1c (04/01/2025 10:33 AM CDT) Hgb A1C 6.5(H) 4.0 - 5.6 % Comment:Testing performed by : [address] [address] Estimated Average Glucose 140 mg/dL RADHA Comment: The ADA recommends reporting an estimated Average Glucose (eAG) with all Hemoglobin A1c results using the equation derived from a study of 507 normal and diabetic adults. Minority populations were underrepresented and children were not included. (Diabetes Care 31:0471-3898, 2008). The eAG is not equivalent to a fasting glucose. Testing performed by: [facility], [address] [place] [address]., [address] Blood 04/01/2025 10:3 3 AM CDT 04/01/2025 3:53 PM CDT us Elisabeth Aranda HEEL BLACKER LAB BLOOD ORDERABLES Final Re sult RADHA [address] Department [place] [address] * Lipid panel (04/01/2025 10:33 AM CDT) [...] last revised on 2018. Testing performed by: [facility], [address] [place] [address]., [address] Triglycerides 89 <=149 mg/dL RADHA KLINE Comment: [...] last revised on 2018. Testing performed by: [facility], [address] [place] [address]., [address] HDL 68 >=40 mg/dL RADHA Comment: Interpretive Data Ages < or = [...] last revised on 2018. Testing performed by: [facility], [address] [place] [address]., [address] LDL, calculated 74 <=129 mg/dL RADHA Comment: Interpretive Data Ages < or = [...] NCEP Expert Panel. Circulation 2004;110:227 3. Mike Deleon al. CHARLES Cardiol. 2019January 22;5(5):540-548. doi: 10.1001/jamacardio.2020.0013 Current Interpretive Data was last revised on 2024. Testing performed by: [facility], [address] [place] [address], [place]., [address] Non-HDL Cholesterol 90 mg/dL RADHA Comment: Interpretive Data Ages < or = [...] last revised on 2018. Testing performed by: [facility], [address] [place] [address]., [address] Chol/HDL ratio 2 [id number] Comment:Testing performed by : [facility], [address] [place] [address]., [address] Blood 04/01/2025 10:3 3 AM CDT 04/01/2025 3:53 PM CDT us Elisabeth Aranda HEEL BLACKER LAB BLOOD ORDERABLES Final Re sult RAD[facility] [address] Department [place] [address] * Hepatitis C antibody Blood (11/04/2024 9:02 PM PLASTER WHITTLER) Hep C Ab Nonreactive Nonreactive Comment:Antibodies to HCV no t detected. Does NOT exclude the possibility of recent exposure to HCV. Current interpretive data was last revised on 22 Blood 11/04/2024 9:0 2 PM PLASTER WHITTLER 11/04/2024 9:15 PM PLASTER WHITTLER us Notinfile Unknown LAB MICROBIOLOGY - GENERAL ORD ERABLES Final Result Performing Organization Address City/[facility]/ZIP Co de Phone Number RADHA [facility] Department [place] [address] * Colonoscopy (07/22/2024 10:32 AM CDT) Anatomical Region Laterality Modality Other Narrative Procedure Note Piero Nieves MD - 07/22/2024 10:32 AM CDT - [facility] Endoscopy Lab Patient Name: Rylee Snell Procedure Date: 07/22/2024 10:32AM Date of : 1950 Admit Type: Outpatient Age: 73 Gender: Female Note Status: Finalized Attending MD: Piero Nieves M.D. Procedure Date: 07/22/2024 Procedure: Colonoscopy Indications: Screening for colorectal malignant neoplasm Providers: Piero Nieves M.D., KEVIN Deutsch (Anesthesia Staff), Rimma Medina RN, Marya Mcknight, Locator Referring MD: Aaron Camargo M.D. Medicines: Monitored [...] bowel preparation was evaluated using the BBPS (Lincoln Bowel Preparation Scale)with scores of: Right Colon [...] polyp removal. Procedure Code(s): --- Professional --- 35444, Colonoscopy, flexible; with endoscopicmucosal resection 50822, 59, Colonoscopy, flexible; with biopsy,single or multiple Diagnosis Code(s): --- Professional --- D12.3, Benign neoplasm of transverse colon (hepatic flexure or splenic flexure) Z12.11, Encounter for screening for malignantneoplasm of colon K64.4, Residual hemorrhoidal skin tags CPT copyright 2020 [employer]. All rights reserved. The codes documented in this report are preliminary and upon electric power line repairer reviewmay be revised to meet current compliance [...] Most Recently Relevant to Health Maintenance [place] [address] [facility] [place] [address] MEDICARE [facility] Address: [address] [address] [place] [address] Advance Directives For more information, please contact: [phone] * Full Code (Latest Code Status on File) Date Activated Date Inactivated Comments 10/28/2024 6:50 PM 11/05/2024 7:53 PM * Full Code Date Activated Date Inactivated Comments 08/29/2024 3:16 AM 09/02/2024 11:09 PM * Full Code Date Activated Date Inactivated Comments 11/14/2023 10:48 PM 11/17/2023 6:34 PM Care Teams Consumer Relations Specialist Relationship Specialty Start Date End Date Elisabeth Aranda NP [address] [place] [address] PCP - General Family Medicine 04/01/25 Aaron Camargo MD [address] [place] [address] Family Medicine 11/14/24 Florentino Mcgowan MD [address] [facility] [place] [address] Consulting Physician Orthopedic Surgery 10/08/24 Juan Jose Caldwell MD [address] [place] [address] Consulting Physician Infectious Diseases 11/02/24
--- OUTSIDE RECORDS SUMMARY | 2025-07-10 08:02 | XMS_ITS | Patient Health Record ---
Author Organization [facility] Address [address] [address] Support Name Relationship Address Phone Rylee York Guarantor Unknown [phone] Reason For Referral No Information Problems Problem Type SNOMED Code ICD Code Onset Dates Problem Status W/U Status Risk Notes Problem Type II diabetes mellitus without complication (737453790) Diabetes mellitus without mention of complication, type II or unspecified type, not stated as uncontrolled (250.00) 05/03/20 11 Active confirmed (Yohan) Problem Hyperlipidemia (35969387) Other and unspecified hyperlipidemia (272.4) 05/03/20 11 Active confirmed (Yohan) Problem Essential hypertension (76405832) Unspecified essential hypertension (401.9) 05/03/20 11 Active confirmed (Yohan) Problem Screening for malignant neoplasm of colon (184307560) Special screening for malignant neoplasms, colon (V76.51) 05/03/20 11 Active confirmed (Yohan) Plan Of Treatment No Information
--- NOTE | 2025-07-10 08:28 | ED_ITS ---
HPI - General Adult General Chief complaint: Unspecified Stated complaint: pain all over Time Seen by Provider: 07/10/25 08:09 History of Present Illness HPI narrative: 74-year-old female present to the emergency department for evaluation for lower extremity swelling and rash under right breast. Patient reports he lower extremity swelling and skin issues have been ongoing for greater than 1 year but states that the rash under the right breast just started today. Related Data Allergies Allergy/AdvReac Type Severity Reaction Status Date / Time No Known Allergies Allergy Verified 07/10/25 08:08 Review of Systems 2 Review of Systems: All systems reviewed & are unremarkable except as noted in HPI and below Exam 2 Narrative: APPEARANCE: Well appearing, no pain, no distress, well-nourished. HEAD: normocephalic, atraumatic. EYES: PERRLA/EOMI, conjunctivae clear. NOSE: Normal no drainage EARS:TMS clear with good light reflex. THROAT: Pharynx clear, no exudate. NECK: Supple. No adenopathy, no masses. RESPIRATORY: Airway patent, respirations nonlabored. Clear to auscultation bilaterally, no rales, rhonchi, wheezing. CARDIOVASCULAR: Regular rate and rhythm without murmurs rubs or gallops. ABDOMINAL: Soft, nontender, nondistended, normal bowel sounds MUSCULOSKELETAL: Lower extremity edema with skin breakdown on the feet bilaterally, NEURO: Alert. Cranial nerves II through XII intact. Good gait. Good coordination SKIN: Fernanda rash under right breast Course Vital Signs Vital signs: Vital Signs Temperature 97.8 F 07/10/25 08:02 Pulse Rate 101 H 07/10/25 08:02 Respiratory Rate 18 07/10/25 08:02 Blood Pressure 149/99 H 07/10/25 08:02 Pulse Oximetry 100 07/10/25 08:02 Oxygen Delivery Room Air 07/10/25 08:02 Temperature 97.8 F 07/10/25 08:02 Pulse Rate 102 H 07/10/25 11:07 Respiratory Rate 16 07/10/25 11:03 Blood Pressure 134/61 07/10/25 11:03 Pulse Oximetry 99 07/10/25 11:07 Oxygen Delivery Room Air 07/10/25 08:02 Medical Decision Making [facility] Narrative Medical decision making narrative: 74-year-old female presents emergency department for evaluation for rash under her right breast and chronic skin breakdown her feet. Patient will be started on antibiotics for potential cellulitis of the lower extremities. Patient was started on nystatin cream in the emergency department for candidiasis under the right breast. Patient is currently afebrile with no leukocytosis hemoglobin of 10.8 which is similar to her baseline. No palpated mass was felt on the right breast. No concern for large abscess. Patient will be started on clindamycin for the skin breakdown on the B and patient was encouraged to follow up with primary care physician for wound check on the feet and also for potential outpatient mammogram. Patient family updated the results of the workup. All questions concerns were addressed. Chest x-ray showed no acute cardiopulmonary abnormality. Differential Diagnosis Differential Diagnosis: Cellulitis, candidiasis, fluid overload Vital Signs Vital Signs: Vital Signs Temperature 97.8 F 07/10/25 08:02 Pulse Rate 101 H 07/10/25 08:02 Respiratory Rate 18 07/10/25 08:02 Blood Pressure 149/99 H 07/10/25 08:02 Pulse Oximetry 100 07/10/25 08:02 Oxygen Delivery Room Air 07/10/25 08:02 Temperature 97.8 F 07/10/25 08:02 Pulse Rate 102 H 07/10/25 11:07 Respiratory Rate 16 07/10/25 11:03 Blood Pressure 134/61 07/10/25 11:03 Pulse Oximetry 99 07/10/25 11:07 Oxygen Delivery Room Air 07/10/25 08:02 Lab Data Lab results reviewed: Yes I reviewed the patient's lab results. 07/10/25 08:50 07/10/25 08:50 Labs: Lab Results 07/10/25 07/10/25 Range/Units 08:50 10:03 WBC 4.3 L (4.5-10.0) K/mm3 RBC 4.34 (4.2-5.4) M/mm3 Hgb 10.8 L (12.0-15.0) g/dL Hct 33.6 L (37.0-47.0) % MCV 77.4 L (80-100) fl MCH 24.9 L (26-34) pg MCHC 32.1 (32-36) g/dl RDW 22.3 H (11.5-14.5) % Plt Count 200 (150-375) k/mm3 MPV 10.4 (7.4-10.4) fl Immature Gran % (Auto) 0.7 H (0-0.5) % Neut % (Auto) 64.5 (45.5-73.1) % Lymph % (Auto) 25.6 (18.3-44.2) % [place] % (Auto) 8.2 (2.6-8.5) % Eos % (Auto) 0.5 (0-4.4) % Baso % (Auto) 0.5 (0.2-1.2) % Lymph # (Auto) 1.09 (0.9-3.2) K/mm3 [place] # (Auto) 0.4 (0.1-0.6) K/mm3 Eos # (Auto) 0.0 (0-0.3) K/mm3 Baso # (Auto) 0.0 (0.0-0.1) K/mm3 Abs Immat Gran (auto) 0.03 (0.00-0.031) K/mm3 Absolute Neuts (auto) 2.7 (1.3-6.7) K/mm3 Absolute Nucleated RBC 0.000 (0.0-0.012) K/mm3 Band Neutrophils % Not Reportable Nucleated RBC % 0.0 (0.0-0.2) % Platelet Estimate Adequate (Adequate) Polychromasia 1+ Hypochromasia 1+ Anisocytosis 2+ Target Cells 2+ Tear Drop Cells 1+ Schistocytes Occasional PT 14.1 (11.1-14.7) Seconds INR 1.1 APTT 28.8 (22.3-36.8) Seconds Sodium 141 (137-145) mmol/L Potassium 3.2 L (3.4-5.0) mmol/L Chloride 108 H (98-107) mmol/L Carbon Dioxide 27 (22-30) mmol/L Anion Gap 6 (4-12) mmol/L BUN 20 H (7-17) mg/dL Creatinine 0.98 (0.7-1.0) mg/dL Estim Creat Clear Calc 51 ml/min Estimated GFR 56 L (59 - ) Glucose 122 H (65-110) mg/dL Calcium 9.0 (8.4-10.2) mg/dL Total Bilirubin 1.9 H (0.2-1.3) mg/dL AST 80 H (14-36) U/L ALT 49 H (6-35) U/L Alkaline Phosphatase 108 (38-126) U/L NT-Pro-B Natriuret Pep 975 H (19.9-100) pg/mL Total Protein 7.9 (6.3-8.2) g/dL Albumin 3.8 (3.5-5.1) g/dL Urine Color Dark yellow (Yellow) Urine Appearance Clear (Clear) Urine pH 5.5 (5.0-9.0) Ur Specific [place] 1.018 (1.001-1.035) Urine Protein 2+ H (Negative) mg/dL Urine Glucose (UA) Negative (Negative) mg/dL Urine Ketones Negative (Negative) mg/dL Ur Blood (Man) Negative (Negative) Urine Nitrate Negative (Negative) Urine Bilirubin Negative (Negative) Urine Urobilinogen 1.0 (<2.0) mg/dL Add Ur Microanalysis Reviewed Leukocyte Esterase Rfl Negative (Negative) BONG/UL Urine RBC 0-2 (0-2) /hpf Urine WBC 0-5 (0-3) /hpf Ur Squamous Epith Cells Occasional (Few) /hpf Urine Bacteria None seen /hpf Urine Casts 3-5 Imaging Data My impression: Chest x-ray: Pulmonary edema Radiologist's impression: Impressions Chest X-Ray 07/10/25 09:48 Impression: CHF Discharge Plan Discharge Clinical Impression: Candidiasis of breast Patient Disposition: Home Condition: Stable Instructions: Antibiotic Form, Cellulitis (ED), Skin Yeast Infection (ED) Additional Instructions: Nystatin powder on the rash under the right breast. Antibiotic as directed for skin breakdown for the feet bilaterally. Have close follow-up with her primary care physician for a wound check on the feet. You will also need to have an outpatient mammogram scheduled by your primary care physician. Tylenol and ibuprofen for pain control. If you have any worsening symptoms and please call or return to the emergency department. Patient Language: Uzbek Prescriptions: New clindamycin HCl [Cleocin HCl] 300 mg capsule 300 mg PO Q6H 10 Days Qty: 40 0RF nystatin 100,000 unit/gram powder 1 applic topical BID Qty: 30 0RF No Action clindamycin HCl 300 mg capsule 300 mg PO Q6H 10 Days Qty: 40 0RF hydrocodone-acetaminophen 5-325 mg tablet 1 tablet PO Q6H PRN (Reason: pain) 3 Days Qty: 12 0RF Follow-up/Referrals: Raman,Aaron Mauricio MD [Primary Care Provider, Unknown]
[2025-07-10 08:45] VITALS: BP 154/89; PULSE 83; RESP 18; O2SAT 100
[2025-07-10 09:06] LABS: Hematocrit 33.6 % (37.0-47.0); Hemoglobin 10.8 g/dL (12.0-15.0); Immature Granulocyte Percent A 0.7 % (0-0.5); Lymphocytes Absolute Auto 1.09 K/mm3 (0.9-3.2); Mean Corpuscular HGB Conc 32.1 g/dl (32-36); Mean Corpuscular Hemoglobin 24.9 pg (26-34); Mean Corpuscular Volume 77.4 fl (80-100); Nucleated Red Blood Cells Absolute Auto 0.000 K/mm3 (0.0-0.012); Nucleated Red Blood Cells Perc 0.0 % (0.0-0.2); Platelet Count Result 200 k/mm3 (150-375); Red Blood Count 4.34 M/mm3 (4.2-5.4); White Blood Count 4.3 K/mm3 (4.5-10.0)
[2025-07-10 09:15] VITALS: BP 170/81; PULSE 75; RESP 16; O2SAT 95
[2025-07-10 09:18] LABS: INR 1.1; Prothrombin Time 14.1 Seconds (11.1-14.7)
[2025-07-10 09:19] LABS: Partial Thromboplastin Time 28.8 Seconds (22.3-36.8)
[2025-07-10 09:25] LABS: Alanine Aminotransferase 49 U/L (6-35); Albumin Level 3.8 g/dL (3.5-5.1); Alkaline Phosphatase 108 U/L (38-126); Anion Gap 6 mmol/L (4-12); Aspartate Amino Transferase 80 U/L (14-36); Bilirubin,Total 1.9 mg/dL (0.2-1.3); Blood Urea Nitrogen 20 mg/dL (7-17); Calcium 9.0 mg/dL (8.4-10.2); Carbon Dioxide 27 mmol/L (22-30); Chloride 108 mmol/L (98-107); Estimated CRCL calculation 51 ml/min; Estimated Glomerular Filt Rate 56; Glucose 122 mg/dL (65-110); Potassium 3.2 mmol/L (3.4-5.0); Sodium 141 mmol/L (137-145); Total Protein 7.9 g/dL (6.3-8.2)
[2025-07-10 09:29] LABS: Anisocytosis 2+; Hypochromasia 1+; Polychromasia 1+; Schistocytes Occasional; Target Cells 2+; Tear Drop Cells 1+
[2025-07-10 09:34] LABS: NT Pro B Type Natriuretic Pept 975 pg/mL (19.9-100)
[2025-07-10] MEDS: MICONAZOLE NITRATE 2% CREAM 30 GM TUBE 1 APPLIC TOPICAL (09:54)
[2025-07-10] MEDS: HYDROcodone/acetaminophen (*CRX) 5-325 MG TABLET 1 TAB PO (10:05)
[2025-07-10 10:30] LABS: Add Urine Microscopic? YES; Appearance Urine Clear (Clear); Glucose Urine UA Negative (Negative); Leukocyte Esterase Ur Negative LEU/UL (Negative); Need Manual Microscopic Reviewed; Nitrate Urine Negative (Negative); Specific Grav Ur 1.018 (1.001-1.035)
[2025-07-10 11:03] VITALS: BP 134/61; PULSE 75; RESP 16
[2025-07-10] MEDS: CLINDAMYCIN HCL 150 MG CAP 300 MG PO (11:03)
[2025-07-10 11:07] VITALS: PULSE 102; O2SAT 99
--- OUTSIDE RECORDS SUMMARY | 2025-07-10 11:09 | XMS_ITS | Clinical Summary ---
Author Organization [facility] Address [address] [place] [address] Care Team Providers Care Crop Farm Helper Name Role Phone Aaron Camargo MD Unavailable [phone] Florentino Mcgowan MD Unavailable [phone] Juan Jose Caldwell MD Unavailable Elisabeth Aranda NP Primary Care Provider [phone] Allergies No known active allergies Medications sodium [...] 10/28/2024 Assessment & Plan (11/03/2024 1:32 PM CLOUD ENGAGEMENT PARTNER): Rylee York is a 74 y.o. female [...] 08/30/2024 Assessment & Plan (08/30/2024 2:23 PM CLOUD ENGAGEMENT PARTNER): 08/30 oxycodone adjusted to tramadol per pt request Trimalleolar fracture of right ankle 08/29/2024 Assessment & Plan (06/23/2025 4:05 PM CDT): Orders: Ambulatory referral to Wound Clinic; Future Assessment & Plan (09/01/2024 12:37 PM CLOUD ENGAGEMENT PARTNER): - Ortho consult - OR 08/29 Ex-Fix [...] 08/29/2024 Assessment & Plan (09/02/2024 12:15 PM CLOUD ENGAGEMENT PARTNER): 08/29: new admission overnight, OR with ortho 09/01: OR with ortho for ORIF of R ankle, PT/OT, ADD 09/02 09/02: Patient is medically stable for discharge, SW/CM updated. Discharge pending nothing, patient discharging home Treatment note [x] HLD (hyperlipidemia) 08/29/2024 Assessment & Plan (04/01/2025 4:13 PM CDT): Assessment & Plan (08/29/2024 9:47 AM CLOUD ENGAGEMENT PARTNER): Atorvastatin 10mg continued Goiter, nodular 08/29/2024 Assessment & Plan (09/02/2024 12:20 PM CLOUD ENGAGEMENT PARTNER): #Large multinodular goiter - Incidental finding on C spine CT - Was previously seen on CT in Oct 2023, lost to follow up - Patient is aware of this incidental finding (discussed on 08/29) - TSH wnl - Thyroid ultrasound ordered while inpatient, pt needs outpatient US Fall, initial encounter 08/28/2024 Assessment & Plan (08/29/2024 9:02 AM CLOUD ENGAGEMENT PARTNER): - Mechanical fall down ~13 steps - HCT, C spine CT Encounter for Medicare annual wellness exam 07/26 Assessment & Plan (08/18/2024 9:38 AM CLOUD ENGAGEMENT PARTNER): A(n) yearly Medicare Annual Wellness Visit has [...] 03/05/2024 Assessment & Plan (09/02/2024 12:14 PM CLOUD ENGAGEMENT PARTNER): - Cr 0.89 on admission 08/30 Cr [...] CDT): Assessment & Plan (09/02/2024 12:15 PM CLOUD ENGAGEMENT PARTNER): - hypertensive emergency on admission, hydralazine given [...] Future Assessment & Plan (08/29/2024 9:07 AM CLOUD ENGAGEMENT PARTNER): - SSI - DM diet Type 2 diabetes mellitus without complication Encounters Date Type Department Care Team Description 06/24/2025 Telephone [facility] Primary Care at [address] [place] [address] Elisabeth Aranda NP Call Back 06/23/2025 11:00 AM CDT Office Visit [facility] at [address] [place] [address] Elisabeth Aranda NP Severe cognitive impairment (Primary Dx); Incontinence of feces, unspecified fecal incontinence type; Severe episode of recurrent major depressive disorder, without psychotic features (HCC); TOM (generalized anxiety disorder); Closed trimalleolar fracture of right ankle with delayed healing, subsequent encounter; Infection of lower extremity associated with hardware; Essential hypertension 06/10/[address] [facility] Orthopaedic Surgery [address] [facility] 6th [place] [address] [place] [address] Florentino Mcgowan MD 06/04/2025 9:15 AM CDT - 06/04/2025 11:59 PM CDT Hospital Encounter [facility] [address] [place] [address] Closed trimalleolar fracture of right ankle with routine healing, subsequent encounter Discharge Disposition: Discharge to home or self care 06/03/2025 Orders Only [facility] Medicine Orthopaedic Surgery [address] [facility] 6th [place] [address] [place] [address] Florentino Mcgowan MD Closed trimalleolar fracture of right ankle with routine healing, subsequent encounter (Primary Dx) 05/04/2025 Telephone [facility] Organization [address] [place] [address] Sveta Engel MA Chart Review (Med adherence) 04/17/2025 [facility] Medication Access [address] [address] Neisha Sheldon CPhT from Last 3 Months [...] materials from doctor or pharmacy Sometimes 01/20/2025 [facility] Utilities Answer Date Recorded In the past 12 months has th e [employer], gas, oil, or water company threatened to [...] often do you attend chur ch or yarsanism services? More than 4 times per year 11/13/2024 Do you belong to any clubs o r organizations such as yarsanism groups, unions, fraternal or athletic groups, or [...] place to sleep or slept in a chcf (including now)? No 11/15/2023 PHQ-9 Answer Date [...] any time in the past 12 m [facility], were you homeless or living in a chcf (including now)? No 11/13/2024 Personal Safety Answer Date Recorded Have you ever been in or are you currently in a harmful physical or emotional relationship or is someone making you feel afraid or unsafe? Denies 10/31/2024 Comments No Sex and Gender Information Value Date Recorded Sex Assigned at Not on file Legal Sex Female 1:23 PM CLOUD ENGAGEMENT PARTNER Gender Identity Not on file Sexual Orientation [...] 11/04/2024, 024 Medical Devices Implanted Type Area Shredder Operator Device Identifier Shelf Expiration Date Model / Serial / Lot Synthes Schanz 5mm 170mm 50mm Blunt Trocar Point Xlong Screw External 294.55 - [id number] Implanted:Qty: 2 on 08/29/2024 by Harjinder Obrien MD at [facility] Right: Ankle Synthes 294.55 / / Synthes Steinmann 5mm 5.5mm 275mm Central Thread Pin Fixation Large 293.890 - [id number] Implanted:Qty: 1 on 08/29/2024 by Harjinder Obrien MD at [facility] Right: Ankle Synthes 293.890 / / [employer] Screw Bone Cortical Threaded 2.7x80mm Ti Ar-24044-93 - [id number] Implanted:Qty: 2 on 09/01/2024 by Florentino Mcgowan MD at [facility] [employer] AR-84575-2 0 / / [employer] Plate Bone T Shape 6 Hole 2 Hole Head 2.7mm Ti Rd-44540h-09 - [id number] Implanted:Qty: 1 on 09/01/2024 by Florentino Mcgowan MD at [facility] [employer] AR-06111N- 26 / / [employer] Screw Bone Cortical Threaded 2.7x42mm Ti Ar-50943-09 - [id number] Implanted:Qty: 1 on 09/01/2024 by Florentino Mcgowan MD at [facility] [employer] AR-08339-2 2 / / [employer] Screw Bone Cortical Threaded 2.7x34mm Ti Ar-30984-53 - [id number] Implanted:Qty: 1 on 09/01/2024 by Florentino Mcgowan MD at [facility] [employer] AR-17885-4 4 / / [employer] Screw Bone Cortical Threaded 2.7x36mm Ti Ar-52356-64 - [id number] Implanted:Qty: 1 on 09/01/2024 by Florentino Mcgowan MD at [facility] [employer] AR-42394-4 6 / / [employer] Screw Bone Threaded 2.7x40mm Ti Vt-83627f-07 - [id number] Implanted:Qty: 1 on 09/01/2024 by Florentino Mcgowan MD at [facility] [employer] AR-60504M- 40 / / [employer] Low Profile Screws 3.5mm 48mm Modular Self Drill Solid Ankle Ar-8835-48 - [id number] Implanted:Qty: 1 on 09/01/2024 by Florentino Mcgowan MD at [facility] [employer] AR-8835-48 / / [employer] Screw Bone Cortical Solid Full Thread Non Locking 3.5x52mm Ss Ar-8835-52 - [id number] Implanted:Qty: 1 on 09/01/2024 by Florentino Mcgowan MD at [facility] [employer] AR-8835-52 / / 3.5 Cortical Screw Implanted:Qty: 1 on 09/01/2024 by Florentino Mcgowan MD at [facility] [employer] AR-8835-54 / / Description:inactive [employer] Screw Bone Cortical Threaded 2.7x20mm Ti Ar-63153-35 - [id number] Implanted:Qty: 1 on 09/01/2024 by Florentino Mcgowan MD at [facility] [employer] AR-92682-7 0 / / [employer] Screw Bone Cortical Threaded 2.7x22mm Ti Ar-53331-23 - [id number] Implanted:Qty: 1 on 09/01/2024 by Florentino Mcgowan MD at [facility] [employer] AR-26081-7 2 / / [employer] Plate Bone Locking 6 Hole Right Distal Fibula Internalbrace Ss Do-2523hc-84 - [id number] Implanted:Qty: 1 on 09/01/2024 by Florentino Mcgowan MD at [facility] [employer] AR-8943DR- 06 / / [employer] Low Profile Screws 3.5mm 12mm Modular Solid Hexalobe Self Tap Ar-8835-12 - [id number] Implanted:Qty: 2 on 09/01/2024 by Florentino Mcgowan MD at [facility] [employer] AR-8835-12 / / [employer] Low Profile Screws 2.7mm 16mm Modular Solid Hexalobe Lock Ankle Ar-8827l-16 - [id number] Implanted:Qty: 4 on 09/01/2024 by Florentino Mcgowan MD at [facility] [employer] AR-8827L-1 6 / / [employer] Low Profile Screws 2.7mm 14mm Modular Solid Hexalobe Lock Ankle Ar-8827l-14 - [id number] Implanted:Qty: 1 on 09/01/2024 by Florentino Mcgowan MD at [facility] [employer] AR-8827L-1 4 / / [employer] Low Profile Screws 3.5mm 14mm Modular Solid Hexalobe Lock Ankle Ar-8835l-14 - [id number] Implanted:Qty: 1 on 09/01/2024 by Florentino Mcgowan MD at [facility] [employer] AR-8835L-1 4 / / [employer] Restrata Wound Matrix 3shc6lc Synthetic Sheet Rwm1-2x2 - [id number] Implanted:Qty: 1 on 10/31/2024 by Florentino Mcgowan MD at [facility] [employer] RWM-1 2X2 / / Restrata Minimatrix Implanted:Qty: 1 on 10/31/2024 by Florentino Mcgowan MD at [facility]. 05/02/2026 [id number] / / [id number] [employer] Inc Restrata Mini Matrix 250mg Micronized Powder Rmini-250 - [id number] Implanted:Qty: 1 on 10/31/2024 [facility] R[facility]250 / / [id number] Procedures Procedure Name Priority Date/Time Associated Diagnosis [...] HEPATITIS C ANTIBODY Routine 11/04/2024 9:02 PM CLOUD ENGAGEMENT PARTNER COLONOSCOPY 07/22/2024 10:32 AM CDT DIABETES EYE [...] Jalen Vazquez M.D. TH: TH Report ID: [id number] Reading Location: [id number] Procedure Note Jalen Vazquez MD - 06/10/2025 [...] by Jalen Vazquez M.D. TH: Report ID: [id number] Reading Location: [place] [address] Florentino Mcgowan MD IMG XR PROCEDURES Final [...] was last reviewed 2021. Testing performed by: [facility], [address] [place] [address], [place]., [address] Blood 04/01/2025 10:3 3 AM CDT 04/01/2025 4:05 PM CDT Elisabeth Aranda NP LAB BLOOD ORDERABLES Final Re sult Performing Organization Address [facility] Co de Phone Number [facility] [address] [facility] Department [place] [address] * (ABNORMAL) Albumin Creatinine Ratio, Urine (04/01/2025 10:33 AM CDT) Albumin Ur 38.6 mg/L Comment: Interpretive Data No reference range established. Current interpretive data was last revised 2019. Testing performed by: [address] [address] Creatinine Ur 122.1 mg/dL RADHA Comment: Interpretive Data No reference range established. Current interpretive data was last revised 2019. Testing performed by: [address] [address] Albumin Creatinine Ratio, Ur 32(H) 1 - 29 mg/g RADHA Comment:Testing performed by : [address] [address] Urine 04/01/2025 10:3 3 AM CDT 04/01/2025 3:54 PM CDT Elisabeth Aranda NP LAB URINE ORDERABLES Final Re sult Performing Organization Address [facility] de Phone Number NAEEM[address] Department [place] [address] * (ABNORMAL) Hemoglobin A1c (04/01/2025 10:33 AM CDT) Hgb A1C 6.5(H) 4.0 - 5.6 % Comment:Testing performed by : [address] [address] Estimated Average Glucose 140 mg/dL RADHA Comment: The ADA recommends reporting an estimated Average Glucose (eAG) with all Hemoglobin A1c results using the equation derived from a study of 507 normal and diabetic adults. Minority populations were underrepresented and children were not included. (Diabetes Care 31:0486-5287, 2008). The eAG is not equivalent to a fasting glucose. Testing performed by: [facility], [address] [place] [address]., [address] Blood 04/01/2025 10:3 3 AM CDT 04/01/2025 3:53 PM CDT us Elisabeth Aranda CPR INSTRUCTOR LAB BLOOD ORDERABLES Final Re sult RADHA [address] Department [place] [address] * Lipid panel (04/01/2025 10:33 AM CDT) [...] last revised on 2018. Testing performed by: [facility], [address] [place] [address]., [address] Triglycerides 89 <=149 mg/dL RADHA KLINE Comment: [...] last revised on 2018. Testing performed by: [facility], [address] [place] [address]., [address] HDL 68 >=40 mg/dL RADHA Comment: Interpretive [...] last revised on 2018. Testing performed by: [facility], [address] [place] [address]., [address] LDL, calculated 74 <=129 mg/dL RADHA Comment: [...] last revised on 2024. Testing performed by: [facility], [address] [place] [address], [place]., [address] Non-HDL Cholesterol 90 mg/dL RADHA Comment: Interpretive [...] last revised on 2018. Testing performed by: [facility], [address] [place] [address]., [address] Chol/HDL ratio 2 [id number] Comment:Testing performed by : [facility], [address] [place] [address]., [address] Blood 04/01/2025 10:3 3 AM CDT 04/01/2025 3:53 PM CDT us Elisabeth Aranda CPR INSTRUCTOR LAB BLOOD ORDERABLES Final Re sult RAD[facility] [address] Department [place] [address] * Hepatitis C antibody Blood (11/04/2024 9:02 PM CLOUD ENGAGEMENT PARTNER) Hep C Ab Nonreactive Nonreactive Comment:Antibodies to HCV no t detected. Does NOT exclude the possibility of recent exposure to HCV. Current interpretive data was last revised on 22 Blood 11/04/2024 9:0 2 PM CLOUD ENGAGEMENT PARTNER 11/04/2024 9:15 PM CLOUD ENGAGEMENT PARTNER us Notinfile Unknown LAB MICROBIOLOGY - GENERAL ORD ERABLES Final Result Performing Organization Address City/[facility]/ZIP Co de Phone Number RADHA [facility] Department [place] [address] * Colonoscopy (07/22/2024 10:32 AM CDT) Anatomical Region Laterality Modality Other Narrative Procedure Note Piero Nieves MD - 07/22/2024 10:32 AM CDT - [facility] Patient Name: Rylee Snell Procedure Date: 07/22/2024 10:32AM Date of : 1950 Admit Type: Outpatient Age: 73 Gender: Female Note Status: Finalized Attending MD: Piero Nieves M.D. Procedure Date: 07/22/2024 Procedure: Colonoscopy Indications: Screening for colorectal malignant neoplasm Providers: Piero Nieves M.D., KEVIN Deutsch (Anesthesia Staff), Rimma Medina RN, Marya Mcknight, Junior Sales Assistant Referring MD: Aaron Camargo M.D. Medicines: Monitored [...] bowel preparation was evaluated using the BBPS ([place] Bowel Preparation Scale)with scores of: Right Colon [...] polyp removal. Procedure Code(s): --- Professional --- 44946, Colonoscopy, flexible; with endoscopicmucosal resection 44646, 59, Colonoscopy, flexible; with biopsy,single or multiple Diagnosis Code(s): --- Professional --- D12.3, Benign neoplasm of transverse colon (hepatic flexure or splenic flexure) Z12.11, Encounter for screening for malignantneoplasm of colon K64.4, Residual hemorrhoidal skin tags CPT copyright 2020 [employer]. All rights reserved. The codes documented in this report are preliminary and upon retail link analyst reviewmay be revised to meet current compliance [...] Recently Relevant to Health Maintenance [place] [address] [facility] [place] [address] MEDICARE Advance Directives For more information, please contact: [phone] * Full Code (Latest Code Status on File) Date Activated Date Inactivated Comments 10/28/2024 6:50 PM 11/05/2024 7:53 PM * Full Code Date Activated Date Inactivated Comments 08/29/2024 3:16 AM 09/02/2024 11:09 PM * Full Code Date Activated Date Inactivated Comments 11/14/2023 10:48 PM 11/17/2023 6:34 PM Care Teams Crop Farm Helper Relationship Specialty Start Date End Date Elisabeth Aranda NP [address] [place] [address] PCP - General Family Medicine 04/01/25 Aaron Camargo MD [address] [place] [address] Family Medicine 11/14/24 Florentino Mcgowan MD [address] [place] [address] Consulting Physician Orthopedic Surgery 10/08/24 Juan Jose Caldwell MD [address] [place] [address] Consulting Physician Infectious Diseases 11/02/24
== END 2025-07-10 11:11 | disposition home or self-care (01) ==
PROVIDERS: Emergency Provider Emergency Medicine; PCP Family Medicine
DX: B37.2 Candidiasis of skin and nail (principal)
CPT/HCPCS: 36415; 71046; 80053; 81001; 83880; 85025; 85610; 85730; 99283; A9270

== ENCOUNTER 2025-08-11 18:35 | Inpatient (IN) | payer MEDICARE, SELFPAY ==
[2025-08-11] VITALS (34 sets, daily range): BP systolic 127–170; BP diastolic 77–118; PULSE 62–150; RESP 12–29; TEMP 36.4–36.6; O2SAT 99–100; BMI 30.6; BMI 30.7
--- NOTE | ~2025-08-11 | XR_ITS ---
EXAMINATION: XR chest 1V portable DATE: 08/11/2025 20:57 INDICATION: Atrial fibrillation. TECHNIQUE: A single frontal view of the chest was obtained. COMPARISON: Chest x-ray 07/10/2025 FINDINGS: Cardiomegaly and atherosclerotic aorta. No definite acute pulmonary lesions. IMPRESSION: 1. No acute pulmonary findings. Significant cardiomegaly and atherosclerotic aorta. Reviewed, dictated and finalized at location [facility] IMPRESSION: 1. No acute pulmonary findings. Significant cardiomegaly and atherosclerotic ao rta.
--- NOTE | 2025-08-11 18:42 | ECG_ITS ---
Test Date: 2025-08-11 19:09:14 Measurements Intervals [place] Rate: 134 P: 0 VA: 0 QRS: -16 QRSD: 102 T: 157 QT: 336 QTc: 502 Interpretive Statements ATRIAL FIBRILLATION WITH RAPID VENTRICULAR RESPONSE ST DEVIATION AND T-WAVE ABNORMALITY, CONSIDER ISCHEMIA Electronically Signed On 08-11-2025 22:30:45 AIRCRAFT DE ICER INSTALLER by Rob Galicia D.O
[2025-08-11] MEDS: METOPROLOL TARTRATE INJ 5 MG/5 ML VIAL IV PUSH (19:48)
[2025-08-11 19:50] LABS: Hematocrit 34.6 % (37.0-47.0); Hemoglobin 11.0 g/dL (12.0-15.0); Immature Granulocyte Percent A 0.3 % (0-0.5); Immature Platelet Fraction Pct 3.0 % (0.9-11.2); Lymphocytes Absolute Auto 1.85 K/mm3 (0.9-3.2); Mean Corpuscular HGB Conc 31.8 g/dl (32-36); Mean Corpuscular Hemoglobin 25.9 pg (26-34); Mean Corpuscular Volume 81.6 fl (80-100); Nucleated Red Blood Cells Absolute Auto 0.000 K/mm3 (0.0-0.012); Nucleated Red Blood Cells Perc 0.0 % (0.0-0.2); Platelet Count Result 190 k/mm3 (150-375); Red Blood Count 4.24 M/mm3 (4.2-5.4); White Blood Count 4.0 K/mm3 (4.5-10.0)
[2025-08-11 20:04] LABS: Alanine Aminotransferase 21 U/L (6-35); Albumin Level 4.2 g/dL (3.5-5.1); Alkaline Phosphatase 96 U/L (38-126); Anion Gap 8 mmol/L (4-12); Aspartate Amino Transferase 36 U/L (14-36); Bilirubin,Total 1.3 mg/dL (0.2-1.3); Blood Urea Nitrogen 14 mg/dL (7-17); Calcium 8.8 mg/dL (8.4-10.2); Carbon Dioxide 23 mmol/L (22-30); Chloride 107 mmol/L (98-107); Estimated CRCL calculation 41 ml/min; Estimated Glomerular Filt Rate 51; Glucose 103 mg/dL (65-110); Potassium 3.2 mmol/L (3.4-5.0); Sodium 138 mmol/L (137-145); Total Protein 8.1 g/dL (6.3-8.2)
[2025-08-11 20:10] LABS: NT Pro B Type Natriuretic Pept 3290 pg/mL (19.9-100); Troponin I 0.026 ng/mL (0.000-0.034)
[2025-08-11 20:25] LABS: Hypochromasia 1+; Schistocytes None Seen
[2025-08-11 20:26] LABS: Anisocytosis 3+; Band Neutrophils Percent 0 % (0-6)
--- NOTE | 2025-08-11 20:48 | ED_ITS ---
HPI - General Adult General Chief complaint: Epistaxis Stated complaint: nose bleed X3 days Time Seen by Provider: 08/11/25 19:16 History of Present Illness HPI narrative: patient 74-year-old female who presents emergency department with chief complaint of nose bleed. Patient reports that she is on Eliquis reports she has history of atrial fibrillation she was also history of heart failure the patient states she has had stents placed and reports she is wearing a life vest patient states that she has had bleeding from her right nostril for several days reports that she is feeling weaker and more run down Related Data Allergies Allergy/AdvReac Type Severity Reaction Status Date / Time No Known Allergies Allergy Verified 07/10/25 08:08 Review of Systems 2 Review of Systems: A 10 system review of systems was completed on the patient and is negative except for what is stated in the HPI. Nursing and ancillary documentation was reviewed. Exam 2 Narrative: GENERAL: Well-appearing, well-nourished, and in no acute distress. HEAD: Normocephalic, atraumatic. EYES: PERRLA and EOMI. ENT: Nares clear, no rhinorrhea . Mucous membranes moist. dried blood in the right nostril NECK: Supple. CHEST: Clear to auscultation. No respiratory distress. HEART: tachycardic irregular rate and rhythm. No murmur heard. Normal peripheral pulses. ABDOMEN: Soft, nontender, nondistended, normal active bowel sounds. EXTREMITIES: Normal range of motion. No edema. SKIN: Warm, dry, no rash. NEURO: No focal deficits. Alert and oriented x3. PSYCH: Normal mood and affect. Course Vital Signs Vital signs: Vital Signs Temperature 36.5 C 08/11/25 18:39 Pulse Rate 150 H 08/11/25 18:39 Respiratory Rate 12 08/11/25 18:39 Blood Pressure 170/118 H 08/11/25 18:39 Temperature 36.5 C 08/11/25 18:39 Pulse Rate 132 H 08/11/25 19:48 Respiratory Rate 12 08/11/25 18:39 Blood Pressure 170/118 H 08/11/25 18:39 Medical Decision Making Vital Signs Vital Signs: Vital Signs Temperature 36.5 C 08/11/25 18:39 Pulse Rate 150 H 08/11/25 18:39 Respiratory Rate 12 08/11/25 18:39 Blood Pressure 170/118 H 08/11/25 18:39 Temperature 36.5 C 08/11/25 18:39 Pulse Rate 132 H 08/11/25 19:48 Respiratory Rate 12 08/11/25 18:39 Blood Pressure 170/118 H 08/11/25 18:39 Lab Data 08/11/25 19:39 08/11/25 19:39 Labs: Lab Results 08/11/25 Range/Units 19:39 WBC 4.0 L (4.5-10.0) K/mm3 RBC 4.24 (4.2-5.4) M/mm3 Hgb 11.0 L (12.0-15.0) g/dL Hct 34.6 L (37.0-47.0) % MCV 81.6 (80-100) fl MCH 25.9 L (26-34) pg MCHC 31.8 L (32-36) g/dl RDW 29.0 H (11.5-14.5) % Plt Count 190 (150-375) k/mm3 MPV 10.5 H (7.4-10.4) fl Immature Gran % (Auto) 0.3 (0-0.5) % Neut % (Auto) 43.8 L (45.5-73.1) % Lymph % (Auto) 46.3 H (18.3-44.2) % [place] % (Auto) 7.5 (2.6-8.5) % Eos % (Auto) 1.8 (0-4.4) % Baso % (Auto) 0.3 (0.2-1.2) % Lymph # (Auto) 1.85 (0.9-3.2) K/mm3 [place] # (Auto) 0.3 (0.1-0.6) K/mm3 Eos # (Auto) 0.1 (0-0.3) K/mm3 Baso # (Auto) 0.0 (0.0-0.1) K/mm3 Abs Immat Gran (auto) 0.01 (0.00-0.031) K/mm3 Absolute Neuts (auto) 1.8 (1.3-6.7) K/mm3 Absolute Nucleated RBC 0.000 (0.0-0.012) K/mm3 Band Neutrophils % 0 (0-6) % Nucleated RBC % 0.0 (0.0-0.2) % Platelet Estimate Adequate (Adequate) % Immature Plt Fraction 3.0 (0.9-11.2) % Hypochromasia 1+ Anisocytosis 3+ Schistocytes None seen Sodium 138 (137-145) mmol/L Potassium 3.2 L (3.4-5.0) mmol/L Chloride 107 (98-107) mmol/L Carbon Dioxide 23 (22-30) mmol/L Anion Gap 8 (4-12) mmol/L BUN 14 D (7-17) mg/dL Creatinine 1.06 H (0.7-1.0) mg/dL Estim Creat Clear Calc 41 ml/min Estimated GFR 51 L (59 - ) Glucose 103 (65-110) mg/dL Calcium 8.8 (8.4-10.2) mg/dL Total Bilirubin 1.3 (0.2-1.3) mg/dL AST 36 (14-36) U/L ALT 21 (6-35) U/L Alkaline Phosphatase 96 (38-126) U/L Troponin I 0.026 (0.000-0.034) ng/mL NT-Pro-B Natriuret Pep 3290 H (19.9-100) pg/mL Total Protein 8.1 (6.3-8.2) g/dL Albumin 4.2 (3.5-5.1) g/dL Blood Type A Positive Antibody Screen Negative Discharge Plan Discharge Clinical Impression: Epistaxis, Atrial fibrillation with RVR Patient Disposition: Still a Patient Condition: Stable Patient Language: Gambian Prescriptions: No Action clindamycin HCl 300 mg capsule 300 mg PO Q6H 10 Days Qty: 40 0RF hydrocodone-acetaminophen 5-325 mg tablet 1 tablet PO Q6H PRN (Reason: pain) 3 Days Qty: 12 0RF clindamycin HCl [Cleocin HCl] 300 mg capsule 300 mg PO Q6H 10 Days Qty: 40 0RF nystatin 100,000 unit/gram powder 1 applic topical BID Qty: 30 0RF Follow-up/Referrals: PHYSICIAN,CINDER PITMAN [Primary Care Provider, Internal Medicine]
[2025-08-11] MEDS: dilTIAZem 100 MG/100 ML 100 MG/100 ML BAG IV CONT (21:05)
--- NOTE | 2025-08-11 22:08 | ECG_ITS ---
Test Date: 2025-08-11 22:24:51 Measurements Intervals [place] Rate: 79 P: 0 GA: 0 QRS: -3 QRSD: 123 T: 149 QT: 419 QTc: 481 Interpretive Statements ATRIAL FIBRILLATION INTRAVENTRICULAR CONDUCTION DELAY NONSPECIFIC T-WAVE ABNORMALITY Electronically Signed On 08-11-2025 22:33:45 PATENT LEGAL ASSISTANT by Rob Galicia D.O
--- NOTE | 2025-08-11 22:50 | WPCEDHO ---
ED Hand Off Checklist All vitals saved:yes IV Site documented:yes All med administrations documented:yes Triage Note Triage Note pt to ed with c/o nose bleed that 08/11/25 22:04 started three days ago, and has not let up. pt reportedly has been in and out of the hospital for the last month, takes eliquis . pt denies injury Allergies No Known Allergies Allergy (Verified 07/10/25 08:08) Active Medications including assessments/comments Diltiazem HCl (Cardizem 100 Mg/100 Ml) 100 mg in 100 mls @ 5 mls/hr IV CONT .Q20H STA Stop: 08/12/25 16:48 Last Admin: 08/11/25 21:05 Dose: 2.5 mg/hr, 2.5 mls/hr Documented By: CHRISTOPHER Infusion/Titration Document 08/11/25 21:05 CHRISTOPHER (Rec: 08/11/25 21:05 SARY [id number]) Intake IV Site Peripheral Access Left Antecubital Container Volume 100 Waste Amount 0 Dosing Dose Rate 2.5 Infusion Rate 2.5 Increase/Decrease Started Elapsed Time Elapsed Time ( 0m minutes) Diltiazem Infusion Assessment Document 08/11/25 21:05 CHRISTOPHER (Rec: 08/11/25 21:05 SARY [id number]) Infusion Action Diltiazem Infusion Initiated Action Pulse Pulse Rate (60-100 68 beats/min) Blood Pressure Blood Pressure (100/ 152/92 H 60-140/90 mmHg) Blood Pressure Mean 112 (mmHg) Administered/Completed Medications Discontinued Medications Diltiazem HCl (Diltiazem Hcl Inj 25 Mg/5 Ml Vial) 10 mg IV PUSH ONCE STA Stop: 08/11/25 20:50 Last Admin: 08/11/25 21:29 Dose: Not Given Documented By: CHRISTOPHER Non-Admin Reason: Not given Per MD instruction Lidocaine/Epinephrine (Lido 1%/Epinephrine 1:100,000 20 Ml Vial) Confirm Administered Dose 20 ml .ROUTE .STK-MED ONE Stop: 08/11/25 19:12 Last Admin: 08/11/25 21:29 Dose: Not Given Documented By: CHRISTOPHER Non-Admin Reason: Not currently neeeded Metoprolol Tartrate (Metoprolol Tartrate Inj 5 Mg/5 Ml Vial) 5 mg IV PUSH ONCE STA Stop: 08/11/25 19:17 Last Admin: 08/11/25 19:48 Dose: 5 mg Documented By: CHRISTOPHER Interventions/Assessments IV / Saline Lock, Insert Start: 08/11/25 18:35 Freq: Status: Active Protocol: Document 08/11/25 21:05 LLG (Rec: 08/11/25 21:05 LLG [id number]) IV Assessment Peripheral Access Left Antecubital IV Catheter Access Initiated IV Insertion Date 08/11/25 IV Insertion Time 21:05 Catheter Gauge 18 IV Insertion 1 Attempts IV Site Assessment WNL IV Care and WNL Maintenance PA: HEENT Assessment Start: 08/11/25 18:35 Freq: Status: Active Protocol: Document 08/11/25 22:04 LLG (Rec: 08/11/25 22:05 LLG [id number]) Head and Neck Assessment Naris/Nares Nasal Symptoms Bleeding Nasal Discharge Clots,Red Nasal Bleeding Nasal Clip or Clamp Treatment Rendered Last Vital Signs Temperature 97.8 F 08/11/25 22:04 Pulse Rate 75 08/11/25 22:46 Respiratory Rate 18 08/11/25 22:46 Pulse Oximetry 100 08/11/25 22:46 Blood Pressure 151/93 H 08/11/25 22:46 Blood Pressure Mean 102 08/11/25 22:46 Weight 76.3 kg 08/11/25 18:39 Last Result - Abnormals Only WBC 4.0 K/mm3 (4.5-10.0) L 08/11/25 19:39 Hgb 11.0 g/dL (12.0-15.0) L 08/11/25 19:39 Hct 34.6 % (37.0-47.0) L 08/11/25 19:39 MCH 25.9 pg (26-34) L 08/11/25 19:39 MCHC 31.8 g/dl (32-36) L 08/11/25 19:39 RDW 29.0 % (11.5-14.5) H 08/11/25 19:39 MPV 10.5 fl (7.4-10.4) H 08/11/25 19:39 Neut % (Auto) 43.8 % (45.5-73.1) L 08/11/25 19:39 Lymph % (Auto) 46.3 % (18.3-44.2) H 08/11/25 19:39 Potassium 3.2 mmol/L (3.4-5.0) L 08/11/25 19:39 Creatinine 1.06 mg/dL (0.7-1.0) H 08/11/25 19:39 Estimated GFR 51 (59-) L 08/11/25 19:39 NT-Pro-B Natriuret Pep 3290 pg/mL (19.9-100) H 08/11/25 19:39 Most Recent Suicide Severity Rating Suicide Severity Rating NO RISK INDICATED 08/11/25 22:04
[2025-08-11 23:22] LABS: Troponin I 0.029 ng/mL (0.000-0.034)
--- NOTE | 2025-08-11 23:38 | ADMGEN ---
This patient, Rylee York, was admitted to IMU Room 205-01. Patient/family oriented to hospital policies and general routines including ID bracelet, bed and alarms, visiting hours, pain management, procedures, bathroom and other care routines, personal items, smoking policy, room service/diet, and visiting hours. Information on how to activate the Rapid Response Team has been discussed. Patient/Family are encouraged to report perceived risks to care and to ask questions if they do not understand what they are told or what they should do.
[2025-08-12] VITALS (23 sets, daily range): BP systolic 132–159; BP diastolic 37–104; PULSE 58–133; RESP 17–21; TEMP 36.4–37.1; O2SAT 99–100
--- NOTE | 2025-08-12 02:07 | ECG_ITS ---
Test Date: 2025-08-12 02:34:31 Measurements Intervals [place] Rate: 58 P: 193 KS: 209 QRS: 22 QRSD: 102 T: 180 QT: 445 QTc: 441 Interpretive Statements ATRIAL FIBRILLATION WITH SLOW VENTRICULAR RESPONSE NONSPECIFIC T-WAVE ABNORMALITY INTRAVENTRICULAR CONDUCTION DELAY ABNORMAL ECG Compared to ECG 08/11/2025 22:24:51 NO DIFFERENCE Electronically Signed On 08-12-2025 07:47:12 INTERVENTIONAL TECHNOLOGIST by Fabián Ambrose M.D.
[2025-08-12 03:19] LABS: Hematocrit 31.9 % (37.0-47.0); Hemoglobin 10.1 g/dL (12.0-15.0); Immature Granulocyte Percent A 0.4 % (0-0.5); Immature Platelet Fraction Pct 3.1 % (0.9-11.2); Lymphocytes Absolute Auto 2.14 K/mm3 (0.9-3.2); Mean Corpuscular HGB Conc 31.7 g/dl (32-36); Mean Corpuscular Hemoglobin 25.8 pg (26-34); Mean Corpuscular Volume 81.4 fl (80-100); Nucleated Red Blood Cells Absolute Auto 0.000 K/mm3 (0.0-0.012); Nucleated Red Blood Cells Perc 0.0 % (0.0-0.2); Platelet Count Result 177 k/mm3 (150-375); Red Blood Count 3.92 M/mm3 (4.2-5.4); White Blood Count 4.5 K/mm3 (4.5-10.0)
[2025-08-12 03:37] LABS: Troponin I 0.024 ng/mL (0.000-0.034)
--- NOTE | 2025-08-12 03:40 | PM.IMHP ---
H&P: HPI History of Present Illness Date/Time: 08/12/25 03:40 Chief Complaint: epistaxis Narrative: This is a 74-year-old female patient who resides with her daughter. The patient has a history of atrial fibrillation and is on Eliquis. Patient stated that she is been having a bloody nose for 3 days and could not get it to stop. [facility] but felt that she could not make it there because it was too far. She also has a history of congestive heart failure and she has a LifeVest due to low ejection fraction. The patient stated that she has been feeling weaker and run down from her bloody nose. Her H&H was 11.0 in 34.6 and is down to 10.1 in 31.9. The patient appears to be at her baseline. Her potassium was found to be 3.2. Her creatinine is 1.06. Troponins have been negative x3. Her BNP is 3290. Patient was found to be in AFib with RVR. Her heart rate would go up and down while she was in the emergency room. After much consideration, the patient was started on a Cardizem drip. However her nose bleed did stop in the emergency room with pressure.. She is slightly hard of hearing and is a poor historian. Her blood pressure was elevated 170/118. The patient was admitted to observation status on the date of service of 08/12/2025. Review of Systems Constitutional: Constitutional: Reports as per HPI and Reports no additional constitutional complaints Eyes: Eyes: Reports as per HPI and Reports no additional eye complaints ENT: Reports system reviewed and no additional complaints, except as documented and Reports Normal hearing present Cardiovascular: Cardiovascular: Reports no additional cardiovascular complaints Respiratory: Respiratory: Reports as per HPI and Reports no additional respiratory complaints Gastrointestinal: Gastrointestinal: Reports as per HPI and Reports no additional gastrointestinal complaints Genitourinary: Genitourinary: Reports no additional female genitourinary complaints Musculoskeletal: Musculoskeletal: Reports no additional musculoskeletal complaints Integumentary/Breasts: Skin/Breast: Reports system reviewed and no additional complaints, except as docu Neurologic: Reports system reviewed and no additional complaints, except as documented and Reports Normal hearing present Psychiatric: Psychiatric: Reports no additional psychiatric complaints and Reports as per HPI Hematologic/Lymphatic: Hematologic/Lymphatic: Reports no additional hematologic/lymphatic complaints Allergic/Immunologic: Allergic/Immunologic: Reports no additional allergic/immunologic complaints [facility] Past Medical History Medical History (Updated 08/12/25 @ 12:14 by Fabián Ambrose MD) Anemia Chronic venous stasis Hypertension CAD (coronary artery disease) Congestive heart failure Surgical History Surgical History (Updated 08/12/25 @ 04:47 by Gris Sierra APRN) S/P debridement Lower extremities H/O heart artery stent Family History Family History (Updated 08/12/25 @ 04:49 by Gris Sierra APRN) Mother Heart disease Social History Social History (Updated 08/12/25 @ 04:50 by Gris Sierra APRN) Social History: The patient stated that she had 3 sons and 1 daughter. She currently lives with the 1 daughter. She recently moved here from [place]. 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 The patient stated that she never smoked. She is . Code status: Full code Smoking status: Never smoker Alcohol intake: former Substance use: never Substance use type: does not use Lack of Transportation: No Lack of Food: Never True Current Housing: I Have Housing Concerned About Future Housing: No Difficulty Paying Gas/Electric Bills: No Difficulty Paying for Meds: No Currently Unemployed: No Education: High School Diploma/GED Difficulty w/ Childcare or Family Care: No Spiritual care concerns: No Meds Home Medications and Allergies Home Medications ?Medication ?Instructions ?Recorded ?Confirmed ?Type clindamycin HCl 300 mg capsule 300 mg PO Q6H 10 days #40 caps 10/27/24 Rx hydrocodone 5 mg-acetaminophen 325 1 tablet PO Q6H PRN pain 3 days 10/27/24 Rx mg tablet #12 tabs clindamycin HCl 300 mg capsule 300 mg PO Q6H 10 days #40 caps 07/10/25 Rx (Cleocin HCl) nystatin 100,000 unit/gram topical 1 applic topical BID #30 grams 07/10/25 Rx powder amiodarone 200 mg tablet 200 mg PO Q12H 08/12/25 08/12/25 History apixaban 5 mg tablet (Eliquis) 5 mg PO BID 08/12/25 08/12/25 History atorvastatin 10 mg tablet 10 mg PO QPM 08/12/25 08/12/25 History carvedilol 6.25 mg tablet (Coreg) 6.25 mg PO BID 08/12/25 08/12/25 History empagliflozin 10 mg tablet 10 mg PO DAILY 08/12/25 08/12/25 History (Jardiance) ferrous sulfate 325 mg (65 mg 325 mg PO DAILY 08/12/25 08/12/25 History iron) tablet (FeroSul) furosemide 20 mg tablet 20 mg PO DAILY 08/12/25 08/12/25 History sacubitril 24 mg-valsartan 26 mg 1 tablet PO BID 08/12/25 08/12/25 History tablet (Entresto) sertraline 25 mg tablet (Zoloft) 25 mg PO DAILY 08/12/25 08/12/25 History spironolactone 25 mg tablet 25 mg PO DAILY 08/12/25 08/12/25 History (Aldactone) Allergies Allergy/AdvReac Type Severity Reaction Status Date / Time No Known Allergies Allergy Verified 08/11/25 23:39 Vital Signs Vital Signs - 24 hr 08/11/25 18:39 08/11/25 19:13 08/11/25 19:15 Temperature 97.7 F Pulse Rate 150 H 137 H 134 H Respiratory Rate 12 29 H 22 H Blood Pressure 170/118 H Pulse Oximetry 100 100 Oxygen Delivery 08/11/25 19:16 08/11/25 19:30 08/11/25 19:31 Temperature Pulse Rate 133 H 129 H 88 Respiratory Rate 20 20 16 Blood Pressure 159/96 H 156/88 H Pulse Oximetry 100 99 99 Oxygen Delivery 08/11/25 19:41 08/11/25 19:45 08/11/25 19:48 Temperature Pulse Rate 128 H 128 H 132 H Respiratory Rate 25 H 22 H Blood Pressure 157/82 H Pulse Oximetry 100 100 Oxygen Delivery 08/11/25 20:00 08/11/25 20:01 08/11/25 20:15 Temperature Pulse Rate 71 110 H 62 Respiratory Rate 16 23 H 21 H Blood Pressure 127/77 Pulse Oximetry 100 99 100 Oxygen Delivery 08/11/25 20:21 08/11/25 20:30 08/11/25 20:41 Temperature Pulse Rate 120 H 67 66 Respiratory Rate 24 H 22 H 21 H Blood Pressure 131/91 H 135/102 H Pulse Oximetry 99 100 100 Oxygen Delivery 08/11/25 20:45 08/11/25 21:00 08/11/25 21:01 Temperature Pulse Rate 67 75 Respiratory Rate 16 23 H Blood Pressure 152/92 H Pulse Oximetry 99 100 Oxygen Delivery 08/11/25 21:05 08/11/25 21:15 08/11/25 21:21 Temperature Pulse Rate 68 71 124 H Respiratory Rate 19 20 Blood Pressure 152/92 H 151/102 H Pulse Oximetry 100 Oxygen Delivery 08/11/25 21:30 08/11/25 21:41 08/11/25 21:45 Temperature Pulse Rate 69 123 H 94 Respiratory Rate 20 24 H 29 H Blood Pressure 147/101 H Pulse Oximetry 100 100 100 Oxygen Delivery 08/11/25 22:00 08/11/25 22:01 08/11/25 22:04 Temperature 97.8 F Pulse Rate 124 H 123 H Respiratory Rate 22 H 20 Blood Pressure 154/107 H Pulse Oximetry 99 100 Oxygen Delivery 08/11/25 22:15 08/11/25 22:21 08/11/25 22:30 Temperature Pulse Rate 127 H 76 124 H Respiratory Rate 21 H 16 21 H Blood Pressure 150/96 H Pulse Oximetry 99 99 100 Oxygen Delivery 08/11/25 22:45 08/11/25 22:46 08/11/25 23:13 Temperature Pulse Rate 120 H 75 73 Respiratory Rate 19 18 16 Blood Pressure 151/93 H 151/93 H Pulse Oximetry 100 100 99 Oxygen Delivery 08/11/25 23:39 08/12/25 00:00 08/12/25 00:00 Temperature 97.6 F Pulse Rate 70 125 H 125 H Respiratory Rate 21 H 21 H Blood Pressure 149/91 H Pulse Oximetry 100 100 Oxygen Delivery Room Air 08/12/25 00:00 08/12/25 02:00 08/12/25 02:00 Temperature Pulse Rate 120 H 64 62 Respiratory Rate Blood Pressure 149/91 H 142/62 H Pulse Oximetry Oxygen Delivery 08/12/25 02:10 08/12/25 02:15 08/12/25 02:30 Temperature Pulse Rate 64 60 58 L Respiratory Rate Blood Pressure 142/64 H Pulse Oximetry Oxygen Delivery 08/12/25 03:24 08/12/25 03:24 Temperature Pulse Rate 58 L 58 L Respiratory Rate 21 H Blood Pressure Pulse Oximetry 100 Oxygen Delivery Room Air Exam Const: General: cooperative, healthy appearing, comfortable, no acute distress, well developed, awake, Physically active, average body habitus and well nourished Nutritional Appearance: average body habitus and well nourished Orientation/consciousness: oriented to person, oriented to place, oriented to time and patient oriented x3 Limitations: no limitations HENMT: Head: normal to inspection, No palpable skull fracture present, normocephalic, atraumatic and abrasion Ears: external ears normal Throat: posterior oropharynx normal Other: And no blood noted to either nostril. No blood noted in the posterior pharynx. Patient is slightly hard of hearing. Eyes: General: appearance normal, both eyes and all related structures Alignment and Position: alignment normal Periorbital: periorbital findings normal Eyelids: eyelids normal EOM: EOMs intact bilaterally Neck: Neck: normal visual inspection, full ROM and no lymphadenopathy Chest: Chest palpation & inspection: normal inspection of the chest Resp: Effort & Inspection: normal respiratory effort Auscultation: clear to auscultation bilaterally Percussion: percussion normal Cardio: Palpation: normal PMI Rhythm: abnormal rhythm Heart sounds: S1 normal heart sound present and S2 normal heart sound present Peripheral pulses: Peripheral pulses 2+ throughout Other: Patient is going in out of AFib. GI: Inspection: normal to inspection Percussion: Yes normal to percussion Auscultation: normal bowel sounds Rectal Exam: deferred Skin: General skin exam: normal color Lesions: no lesions Rashes: no rashes Trauma: no lacerations or abrasions Hair: normal Nails: normal Other: Patient has multiple ulcerated areas to bilateral lower extremities. Approximately 2 x 3. This is chronic. Neuro: General: oriented to person, oriented to place, oriented to time and patient oriented x3 Cognition (Neuro): normal cognition Speech: normal speech Gait exam (Neuro): Normal gait present Motor exam (neuro): 5/5 motor strength present throughout Sensory Exam: normal sensation Other: Patient is a poor historian. Extrem: General: normal to inspection Right upper extremity: normal to inspection and shoulder/upper arm Left upper extremity: normal to inspection and shoulder/upper arm Right lower extremity: normal to inspection Left lower extremity: normal to inspection Other: Multiple ulcerated areas to bilateral lower extremities. No drainage noted. No erythema around the ulcerated areas. Psych: Appearance: grossly normal Mental Status: mental status grossly normal Speech and movement: Normal speech and movement present Affect: normal affect Attitude: cooperative Thought process: Normal thought process present Thought content: Yes Normal thought content present H&P: Results Labs Labs: Short CBC 08/11/25 Range/Units 19:39 WBC 4.0 L (4.5-10.0) K/mm3 Hgb 11.0 L (12.0-15.0) g/dL Hct 34.6 L (37.0-47.0) % Plt Count 190 (150-375) k/mm3 BMP 08/11/25 19:39 Sodium 138 Potassium 3.2 L Chloride 107 Carbon Dioxide 23 BUN 14 D Creatinine 1.06 H Glucose 103 Calcium 8.8 Cardiac Enzymes 08/11/25 08/11/25 08/12/25 Range/Units 19:39 22:45 03:07 Troponin I 0.026 0.029 0.024 (0.000-0.034) ng/mL Liver Function 08/11/25 Range/Units 19:39 Total Bilirubin 1.3 (0.2-1.3) mg/dL AST 36 (14-36) U/L ALT 21 (6-35) U/L Alkaline Phosphatase 96 (38-126) U/L Albumin 4.2 (3.5-5.1) g/dL ECG Interpretation: SINUS BRADYCARDIA WITH OCCASIONAL SUPRAVENTRICULAR PREMATURE COMPLEXES POSSIBLE RIGHT VENTRICULAR CONDUCTION DELAY [RSR (QR) IN V1/V2] SEPTAL MYOCARDIAL INFARCTION [40+ ms Q WAVE IN V1/V2], OF INDETERMINATE AGE PROBABLE LATERAL MYOCARDIAL INFARCTION [35 ms Q WAVE IN I/aVL/V5/V6], OF INDETERMINATE AGE Compared to ECG 08/11/2025 22:24:51 Myocardial infarct finding now present Atrial fibrillation no longer present Intraventricular conduction delay no longer present T-wave abnormality no longer presen Imaging Chest x-ray: Radiologist's impression: ITS Impressions Chest X-Ray 08/11/25 21:01 IMPRESSION: 1. No acute pulmonary findings. Significant cardiomegaly and atherosclerotic aorta. Assessment and Plan Assessment and plan (1) Atrial fibrillation with RVR: Code(s): I48.91 - Unspecified atrial fibrillation Status: Acute Assessment and Plan: -the patient is not aware of her medication list. However she is aware that she is on on Eliquis. Her daughter is bringing in the home medications so that we can verify them in get her restarted on her home medications. -the patient typically goes to [facility]. I did ask for records from the datacap developer for review. -the patient has been going in and out of AFib throughout the night. Sometimes she has bradycardia and with activity her heart rate gets of the 130s and she is back in AFib. -she had been on a Cardizem drip but is now stopped due to the bradycardia. -resume home medications when able including Eliquis. Her blood new nose has stopped. -she can follow-up with her datacap developer at [facility]. (2) Congestive heart failure: Code(s): I50.9 - Heart failure, unspecified Status: Acute Assessment and Plan: -resume home medications when they are verified. -the patient has a LifeVest with her. -cardiology records have been requested. -no fluid overload noted. -current BNP is 3290. (3) Epistaxis: Code(s): R04.0 - Epistaxis Status: Acute Assessment and Plan: -this was stopped in the emergency room with pressure. Resume Eliquis when able to verify her dosage. -H&H appears to be stable. (4) Hypertension: Code(s): I10 - Essential (primary) hypertension Status: Acute Assessment and Plan: -her blood pressure was initially elevated. She is currently 139/79 (5) CAD (coronary artery disease): Code(s): I25.10 - Atherosclerotic heart disease of [place] coronary artery without angina pectoris Status: Acute Assessment and Plan: -the patient stated that she has 1 cardiac stent. -[facility]. (6) Chronic venous stasis: Code(s): I87.8 - Other specified disorders of veins Status: Acute Assessment and Plan: -the patient stated that she is had her lower extremities debrided the past. She stated [facility] and [facility] they will be debriding her right medial lower extremity. -wound care consultation was placed. Further examination and recommendations greatly appreciated. -the wounds do not appear to be infected at this time. It appears that the patient has been placed on clindamycin in the past but is not currently on any antibiotics. (7) Anemia: Code(s): D64.9 - Anemia, unspecified Status: Acute Assessment and Plan: -at H&H is at her baseline. Even with the epistaxis her H&H remained the same. (8) Hypokalemia: Code(s): E87.6 - Hypokalemia Status: Acute Assessment and Plan: -unsure if the patient is on diuretics at home. -check magnesium levels as well. -supplement when necessary. Her current potassium is 3.2. Quality VTE Prophylaxis VTE prophylaxis: pharmacologic ordered (Restart Eliquis)
[2025-08-12 03:45] LABS: Hypochromasia 1+; Schistocytes None Seen; Target Cells Occasional
--- OUTSIDE RECORDS SUMMARY | 2025-08-12 04:30 | XMS_ITS | Patient Health Record ---
Author Organization [facility] Address [id number] [address] Support Name Relationship Address Phone Rylee York Guarantor Unknown [phone] Reason For Referral No Information Problems Problem Type SNOMED Code ICD Code Onset Dates Problem Status W/U Status Risk Notes Problem Type II diabetes mellitus without complication (267332271) Diabetes mellitus without mention of complication, type II or unspecified type, not stated as uncontrolled (250.00) 05/03/20 11 Active confirmed (Yohan) Problem Hyperlipidemia (01205764) Other and unspecified hyperlipidemia (272.4) 05/03/20 11 Active confirmed (Yohan) Problem Essential hypertension (19565092) Unspecified essential hypertension (401.9) 05/03/20 11 Active confirmed (Yohan) Problem Screening for malignant neoplasm of colon (387097546) Special screening for malignant neoplasms, colon (V76.51) 05/03/20 11 Active confirmed (Yohan) Plan Of Treatment No Information
--- OUTSIDE RECORDS SUMMARY | 2025-08-12 04:33 | XMS_ITS | Clinical Summary ---
Author Organization [facility] Address [address] [place] [address] Care Team Providers Care Digital Content Marketing Manager Name Role Phone Aaron Camargo MD Unavailable [phone] Florentino Mcgowan MD Unavailable Juan Jose Caldwell MD Unavailable Elisabeth Aranda NP Primary Care Provider [phone] Allergies No known active allergies Medications empagliflozin (JARDIANCE) 10 mg tabletIndicatio ns:Heart Failure Take 1 tablet (10 mg total) by mouth daily 30 tablet 1 025 Active spironolactone (ALDACTONE) 25 mg tablet Take 1 tablet (25 mg total) by mouth daily 30 tablet 1 025 Active sacubitriL-vals chris (ENTRESTO) 24-26 mg tabletIndicatio ns:chronic heart failure Take 1 tablet by mouth 2 (two) times a day 60 tablet 1 025 Active aspirin 81 mg enteric coated tablet Take 1 tablet (81 mg total) by mouth daily 90 tablet 3 025 Active atorvastatin (LIPITOR) 10 mg tabletIndicatio ns:Hypercholest erolemia Take 1 tablet (10 mg total) by mouth daily 90 tablet 3 025 2025 Active ferrous sulfate 325 mg (65 mg of elemental iron) tablet Take 1 tablet (325 mg total) by mouth daily with breakfast 90 tablet 3 2025 Active furosemide (LASIX) 20 mg tabletIndicatio ns:Hypertension associated with diabetes (HCC) Take 1 tablet (20 mg total) by mouth every other day 45 tablet 3 2025 Active sertraline (ZOLOFT) 25 mg tablet Take 1 tablet (25 mg total) by mouth daily 90 tablet 3 2025 Active apixaban (ELIQUIS) 5 mg tabletIndicatio ns:atrial fibrillation Take 1 tablet (5 mg total) by mouth 2 (two) times a day 60 tablet 1 Active carvediloL (COREG) 6.25 mg tablet Take 1 tablet (6.25 mg total) by mouth 2 (two) times a day with meals 60 tablet 1 Active amiodarone (PACERONE) 200 mg tablet Take 1 tablet (200 mg total) by mouth 2 (two) times a day 60 tablet 1 Active acetaminophen (TYLENOL) 325 mg tabletIndicatio ns:Fever,Pain Take 2 tablets (650 mg total) by mouth every 4 (four) hours as needed for pain 30 tablet 1 Active sodium chloride 0.9% injection Administer 10-40 mL into catheter every 12 (twelve) hours 2024 Discontinued(S top Taking at Discharge) sodium chloride 0.9% injection Administer 10-20 mL into catheter as needed for line care 2024 Discontinued(S top Taking at Discharge) heparin 10 unit/mL syringeIndicati ons:Maintain Patency of Indwelling Vascular Catheter Administer 2-5 mL (20-50 Units total) into catheter as needed (with each use) 2024 Discontinued(S top Taking at Discharge) heparin 10 unit/mL syringeIndicati ons:Maintain Patency of Indwelling Vascular Catheter Administer 5 mL (50 Units total) into catheter every 12 (twelve) hours 2024 Discontinued(S top Taking at Discharge) alteplase (CATHFLO ACTIVASE) 2 mg injectionIndica tions:Acute peripheral arterial occlusion 2 mL (2,000 mcg total) once RN to reconstitute vial with 2.2ml Sterile Water just prior to administration. RN to instill Alteplase 2mg/2.2ml to catheter and allow to dwell for at least 30 minutes to restore catheter patency. 2024 Discontinued(S top Taking at Discharge) bacitracin 500 unit/gram ointmentIndicat ions:Surgical site infection,Close d trimalleolar fracture of right ankle with routine healing, subsequent encounter Apply topically 2 (two) times a day 15 g 1 2024 Discontinued(S top Taking at Discharge) gabapentin (NEURONTIN) 300 mg capsule Take 1 capsule (300 mg total) by mouth 3 (three) times a day 90 capsule 2024 Discontinued(S top Taking at Discharge) atorvastatin (LIPITOR) 10 mg tabletIndicatio ns:Hypercholest erolemia Take 1 tablet (10 mg total) by mouth daily 90 tablet 3 2024 Discontinued(R eorder) bisoprolol (ZEBETA) 5 mg tabletIndicatio ns:Myocardial Reinfarction Prevention Take 1 tablet (5 mg total) by mouth daily 90 tablet 3 2024 Discontinued(S top Taking at Discharge) ferrous sulfate 325 mg (65 mg of elemental iron) tablet Take 1 tablet (325 mg total) by mouth daily with breakfast 90 tablet 3 2024 Discontinued(R eorder) furosemide (LASIX) 20 mg tabletIndicatio ns:Hypertension associated with diabetes (HCC) Take 1 tablet (20 mg total) by mouth every other day 45 tablet 3 2024 Discontinued(R eorder) losartan (COZAAR) 25 mg tabletIndicatio ns:hypertension Take 1 tablet (25 mg total) by mouth daily 90 tablet 3 2024 Discontinued(S top Taking at Discharge) amLODIPine (NORVASC) 10 mg tabletIndicatio ns:hypertension Take 1 tablet (10 mg total) by mouth daily 90 tablet 3 2024 Discontinued(S top Taking at Discharge) aspirin 81 mg enteric coated tablet Take 1 tablet (81 mg total) by mouth daily 90 tablet 3 025 2024 Discontinued(R eorder) sertraline (ZOLOFT) 25 mg tablet Take 1 tablet (25 mg total) by mouth daily 30 tablet 1 025 2024 Discontinued(R eorder) carvediloL (COREG) 3.125 mg tablet Take 1 tablet (3.125 mg total) by mouth 2 (two) times a day with meals 60 tablet 1 025 2024 Discontinued(S top Taking at Discharge) apixaban (ELIQUIS) 5 mg tabletIndicatio ns:atrial fibrillation Take 1 tablet (5 mg total) by mouth 2 (two) times a day 60 tablet 1 025 2024 Discontinued apixaban (ELIQUIS) 5 mg tabletIndicatio ns:atrial fibrillation Take 1 tablet (5 mg total) by mouth 2 (two) times a day 60 tablet 1 025 2024 Discontinued(R eorder) apixaban (ELIQUIS) 5 mg tabletIndicatio ns:atrial fibrillation Take 1 tablet (5 mg total) by mouth 2 (two) times a day 180 tablet 3 2024 Discontinued(S top Taking at Discharge) Active Problems Problem Noted Date Diagnosed Date Defibrillator discharge 07/27/2025 Atrial fibrillation with rapid ventricular respo nse 07/24/2025 Transition of care 07/23/2025 Assessment & Plan (07/26/2025 7:58 PM [employer] DEFENSE OFFICER): Elevated troponin 07/20/2025 Hypokalemia 07/15/2025 Swelling of breast 07/15/2025 Cellulitis of right breast 07/15/2025 Iron deficiency anemia secon maricruz to inadequate dietary iron intake 07/15/2025 Multiple and open wound of lower limb 07/15/2025 Assessment & Plan (07/26/2025 7:58 PM [employer] DEF[employer] OFFICER): Dilated cardiomyopathy 07/15/2025 Assessment & Plan (07/26/2025 7:58 PM [employer] DEFENSE OFFICER): Severe cognitive impairment 06/23/2025 Assessment & Plan (07/26/2025 7:58 PM [employer] DEFENSE OFFICER): Assessment & Plan (06/23/2025 4:05 PM CDT): Orders: MRI Brain Cognitive Impairment W WO Contrast; Future Ambulatory referral to Neuropsychology; Future Incontinence of feces 06/23/2025 Assessment & Plan (06/23/2025 4:05 PM CDT): Orders: Ambulatory referral to Gastroenterology; Future Severe episode of recurrent major depressive disorder, without psychotic features 06/23/2025 Assessment & Plan (07/26/2025 7:58 PM [employer] DEFENSE OFFICER): Assessment & Plan (06/23/2025 4:05 PM CDT): TOM (generalized anxiety disorder) 06/23/2025 Assessment & Plan (07/26/2025 7:58 PM [employer] DEFENSE OFFICER): Assessment & Plan (06/23/2025 4:05 PM CDT): Post-menopausal 04/01/2025 Assessment & Plan (04/01/2025 4:13 PM CDT): Orders: Dexa Axial Skeleton Bone Density 1 or 2 Site; Future Encounter for screening mamm ogram for malignant neoplasm of breast 04/01/2025 Assessment & Plan (04/01/2025 4:13 PM CDT): Orders: SCREENING MAMMOGRAM BILATERAL W ANDREA Screening for thyroid disorder 04/01/2025 Assessment & Plan (04/01/2025 4:13 PM CDT): Orders: TSH; Future Class 2 severe obesity due t o excess calories with serious comorbidity and body mass index (BMI) of 35.0 to 35.9 in adult 04/01/2025 Assessment & Plan (04/01/2025 4:13 PM CDT): BMI 32.74. Discussed healthy diet. Is limited with exercise related to current status of right foot. Ambulates with the assistance of a wheeled walker. Encouraged weight loss. Encounter to establish care with new doctor 04/2025 Assessment & Plan (04/01/2025 4:13 PM CDT): Infection of lower extremity associated with vic tinslye 01/02/2025 Assessment & Plan (06/23/2025 4:05 PM [...] chronic systolic congestive heart failu re 11/12/2024 Assessment & Plan (07/26/2025 7:58 PM [employer] DEFENSE OFFICER): Longstanding persistent atrial fibrillation 10/25 Assessment & Plan (07/26/2025 7:58 PM [employer] DEFENSE OFFICER): Assessment & Plan (04/01/2025 4:13 PM CDT): Surgical site infection 10/28/2024 Assessment & Plan (11/03/2024 1:32 PM [employer]/H[employer]BOR DEFENSE OFFICER): Rylee York is a 74 y.o. 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 Recommending to treat right ankle infection with retained hardware for 6 weeks (10/29/24-12/10/24) with daptomcyin and metronidazole with possible early PO switch at ID follow up. Please see sign off note from 11/03/24 for complete recommendations. Acute pain 08/30/2024 Assessment & Plan (08/30/2024 2:23 PM [employer] DEFENSE OFFICER): 08/30 oxycodone adjusted to tramadol per pt request Trimalleolar fracture of right ankle 08/29/2024 Assessment & Plan (06/23/2025 4:05 PM CDT): Orders: Ambulatory referral to Wound Clinic; Future Assessment & Plan (09/01/2024 12:37 PM [employer] DEFENSE OFFICER): - Ortho consult - OR 08/29 [...] 08/29/2024 Assessment & Plan (09/02/2024 12:15 PM [employer] DEF[employer] OFFICER): 08/29: new admission overnight, OR with ortho 09/01: OR with ortho for ORIF of R ankle, PT/OT, ADD 09/02 09/02: Patient is medically stable for discharge, SW/CM updated. Discharge pending nothing, patient discharging home Treatment note [x] HLD (hyperlipidemia) 08/29/2024 Assessment & Plan (07/26/2025 7:58 PM [employer] DEFENSE OFFICER): Assessment & Plan (04/01/2025 4:13 PM CDT): Assessment & Plan (08/29/2024 9:47 AM CO[employer] DEFENSE OFFICER): Atorvastatin 10mg continued Goiter, nodular 08/29/2024 Assessment & Plan (09/02/2024 12:20 PM [employer] DEFENSE OFFICER): #Large multinodular goiter - Incidental finding on C spine CT - Was previously seen on CT in Oct 2023, lost to follow up - Patient is aware of this incidental finding (discussed on 08/29) - TSH wnl - Thyroid ultrasound ordered while inpatient, pt needs outpatient US Fall, initial encounter 08/28/2024 Assessment & Plan (08/29/2024 9:02 AM [employer] DEFENSE OFFICER): - Mechanical fall down ~13 steps - HCT, C spine CT Encounter for Medicare annual wellness exam 07/26 Assessment & Plan (08/18/2024 9:38 AM [employer] DEFENSE OFFICER): A(n) yearly Medicare Annual Wellness Visit [...] chronic kidney disease 03/05/2024 Assessment & Plan (07/26/2025 7:58 PM [employer] DEFENSE OFFICER): Assessment & Plan (09/02/2024 12:14 PM [employer] DEFENSE OFFICER): - Cr 0.89 on admission 08/30 [...] 11/14/2023 Essential hypertension 05/03/2011 Assessment & Plan (07/26/2025 7:58 PM [employer] DEFENSE OFFICER): Assessment & Plan (06/23/2025 4:05 PM CDT): Assessment & Plan (04/01/2025 4:13 PM CDT): Assessment & Plan (09/02/2024 12:15 PM [employer] DEF[employer] OFFICER): - hypertensive emergency on admission, hydralazine given - PO amlodipine 5mg and Losartan 25mg continued (home meds) - 08/30 SBP 140-150 Norvasc incr to 10 - PO Lasix 20 every other day (home med) - Patient instructed to follow up with PCP for medication adjustment. Type 2 diabetes mellitus with hyperlipidemia 06/2011 Assessment & Plan (07/26/2025 7:58 PM [employer] DEF[employer] OFFICER): Assessment & Plan (04/01/2025 4:13 PM CDT): Orders: Lipid panel; Future CBC with auto differential; Future Comprehensive metabolic panel; Future Albumin Creatinine Ratio, Urine; Future Hemoglobin A1c; Future Assessment & Plan (08/29/2024 9:07 AM [employer] DEFENSE OFFICER): - SSI - DM diet Resolved Problems Problem Noted Date Diagnosed Date Resolved Date Type 2 diabetes mellitus wit hout complication, without long-term current use of insulin 05/03/2011 07/20/2025 Encounters Date Type Department Care Team Description 08/04/2025 Telephone [facility] Primary Care at [address] [phone] Elisabeth Aranda NP Med Refill 08/04/2025 Telephone [facility] Medical [facility] Primary Care at [address] Elisabeth Aranda NP 08/03/2025 [facility] Post Discharge Follow up phone call [facility] Surgery Care [address] [place], [place] [phone] Lori Erickson 07/30/2025 [facility] Post Discharge Follow up phone call [place] [phone] Lori Erickson 07/28/[address] [facility] Primary Care at [place] [address] Elisabeth Aranda NP Medical Question/Miscellaneous 07/24/2025 12:29 PM CDT - 07/27/2025 6:03 PM [employer] DEF[employer] OFFICER Hospital Encounter [facility] IMU [address] [place] [address] Tae Amezcua MD Kheirkhahan, Nazanin, MD Huynh, Kiet T., MD Richards, Brandt Marc Jr., Atrial fibrillation with rapid ventricular response (HCC) (Primary Dx); Uses LifeVest defibrillator; Essential hypertension [I10]; Acute on chronic systolic congestive heart failure (HCC) [I50.23]; Type 2 diabetes mellitus with hyperlipidemia (HCC) [E11.69, E78.5]; Dilated cardiomyopathy (HCC) [I42.0]; Defibrillator discharge [Z45.02] Discharge Disposition: Discharge to home or self care 07/24/2025 12:13 PM CDT - 07/24/2025 11:59 PM CDT Hospital Encounter [facility] Emergency, Room R Discharge Disposition: Discharge to home or self care 07/24/2025 11:00 AM CDT Office Visit [facility] Medical [facility] Primary Care at [address] [phone] Elisabeth Aranda NP Transition of care (Primary Dx); Essential hypertension; Mixed hyperlipidemia; Acute on chronic systolic congestive heart failure (HCC); Longstanding persistent atrial fibrillation (HCC); Dilated cardiomyopathy (HCC); Type 2 diabetes mellitus with hyperlipidemia (HCC); Stage 3b chronic kidney disease (HCC); Severe episode of recurrent major depressive disorder, without psychotic features (HCC); TOM (generalized anxiety disorder); Severe cognitive impairment; Multiple open wounds of left lower extremity, initial encounter 07/22/[address] [facility] Primary Care at [address] [place] [address] Elisabeth Aranda NP Medical Question/Miscellaneous 07/21/[address] [facility] Primary Care at [address] [place] [address] Yanira Sahu MA 07/20/2025 1:30 PM CDT - 07/20/2025 2:35 PM CDT Surgery [facility] Cardiac Catheterization [address] [place] [address] Mary Vee MD LEFT HEART CATHETERIZATION WITH CORONARY ANGIOGRAPHY AND WITH OR WITHOUT LEFT VENTRICULOGRAM [id number] 07/20/[address] [facility] Primary Care at [address] [place] [address] Elisabeth Aranda NP Medical Question/Miscellaneous 07/15/2025 12:16 AM CDT - 07/20/2025 6:54 PM CDT Hospital Encounter [facility] Medical Care [address] [place] [address] Dionne Nava MD Petters, MD Kyung Enriquez Deborah L F D, MD Fernandez, Brandt Marc Jr., MD Dilated cardiomyopathy (HCC) (Primary Dx); Hypokalemia; Cellulitis of chest wall; Chronic atrial fibrillation (HCC); Chronic wound; Acute on chronic systolic congestive heart failure (HCC); Multiple opens wound of lower extremity, unspecified laterality, subsequent encounter; Cellulitis of right breast; Swelling of breast; Longstanding persistent atrial fibrillation (HCC); Essential hypertension; Mixed hyperlipidemia; Type 2 diabetes mellitus without complication, without long-term current use of insulin (HCC); Severe cognitive impairment; Iron deficiency anemia secondary to inadequate dietary iron intake; Class 2 severe obesity due to excess calories with serious comorbidity and body mass index (BMI) of 35.0 to 35.9 in adult; Hypertension associated with diabetes (HCC) Discharge Disposition: Discharge to home, home health skilled care 07/14/[address] [facility] Primary Care at [address] [place] [address] Gunjan Garner MA Chart Review ([facility]) 06/24/[address] [facility] Primary Care at [address] [place] [address] Elisabeth Aranda NP Call Back 06/23/2025 11:00 AM CDT Office Visit [facility] Primary Care at [address] [place] [address] Elisabeth Aranda NP Severe cognitive impairment (Primary Dx); Incontinence of feces, unspecified fecal incontinence type; Severe episode of recurrent major depressive disorder, without psychotic features (HCC); TOM (generalized anxiety disorder); Closed trimalleolar fracture of right ankle with delayed healing, subsequent encounter; Infection of lower extremity associated with hardware; Essential hypertension 06/10/2025 Telephone [facility] Orthopaedic Surgery [address] [place] [address] [address]th [place] [address] [place] [phone] Florentino Mcgowan MD 06/04/2025 9:15 AM CDT - 06/04/2025 11:59 PM CDT Hospital Encounter [address] [address] Closed trimalleolar fracture of right ankle with routine healing, subsequent encounter Discharge Disposition: Discharge to home or self care 06/03/2025 Orders Only [facility] Orthopaedic Surgery [facility] 6th [place] [address] [place] [phone] Florentino Mcgowan MD Closed trimalleolar fracture of right ankle with routine healing, subsequent encounter (Primary Dx) from Last 3 Months Immunizations Immunization Administration Dates Next Due Influenza, Trivalent, High D ose, Split, Preservative Free, Intramuscular 11/05/2024 Influenza, Unspecified 07/24/2025(Deferr ed: Patient Refused),07/23/2025(Deferred: Patient Refused),06/22/2025(Deferred: Patient Refused),08/18/2024(Deferred: Patient Refused),09/24/2023(Deferred: Patient Refused) Pneumococcal Conjugate Pcv20 02/05/2024 Surgical History Surgery Date Site/Laterality Comments HYSTERECTOMY CHOLECYSTECTOMY COLONOSCOPY 05/16/2024 COLONOSCOPY 09/24/2003 - 09/23/2004 SECTION 2 TOTAL COLONOSCOPY 07/22/2024 CARDIAC CATHETERIZATION 07/20/2025 N/A Procedure: LEFT HEART CATHETERIZATION WITH CORONARY ANGIOGRAPHY AND WITH OR WITHOUT LEFT VENTRICULOGRAM [id number]; Surgeon: Mary Vee MD; [facility]; Service: Cardiovascular; Laterality: N/A; Medical devices from this surgery are in the Medical Devices section. Medical History Medical History Date Comments Hypertension Diabetes mellitus CHF (congestive heart failure) (HCC) Myocardial infarction (HCC) Migraines Family History Medical History Relation Name Comments No Known Problems Brother No Known Problems Father Heart disease Mother Stroke Mother Breast cancer Neg Hx Relation Name Status Comments Brother Alive Father Mother Social History Tobacco Use Types Packs/Day Years Used Date Smoking Tobacco: Former Cigarettes Smokeless Tobacco: Never Tobacco Cessation:Counseling Given: Not Answered Alcohol Use Standard Drinks/Week Comments Never 0 (1 standard drink = 0.6 oz pur e alcohol) OASIS D0700: Social Isolation Answer Da te [...] materials from doctor or pharmacy Sometimes 01/20/2025 Overall Financial Resource Strain (CARDIA) Answe r Date Recorded How hard is it for you to pa y for the very basics like food, housing, medical care, and heating? Not hard at all 11/13/2024 PHQ-2 Answer Date Recorded PHQ-2 Total Score (If total score is 3 or more points, staff should administer the PHQ-9) 3 06/23/2025 PRAPARE - Transportation Answer Date Re corded [...] in a mcc (including now)? No 11/15/2023 PHQ-9 Answer Date [...] any time in the past 12 m [facility], were you homeless or living in a mcc (including now)? No 11/13/2024 Social Connection and Isolation Panel Answer Date Recorded In a typical week, how many times do you talk on the phone with family, friends, or neighbors? More than three times a week 07/27/2025 How often do you get togethe r with friends or relatives? More than three times a week 07/27/2025 How often do you attend chur ch or christianity services? More than 4 times per year 07/27/2025 Do you belong to any clubs o r organizations such as scientologist groups, unions, fraternal or athletic groups, or school groups? No 07/27/2025 How often do you attend meet ings of the clubs or organizations you belong to? Never 07/27/2025 Are you , , di vorced, , never , or living with a partner? 07/27/2025 AUDIT-C Answer Date Recorded Q1: How often do you have a drink containing alcohol? Never 07/15/2025 Q2: How many drinks containi ng alcohol do you have on a typical day when you are drinking? Patient does not drink Q3: How often do you have si x or more drinks on one occasion? Never 07/15/2025 Overall Financial Resource Strain (CARDIA) Answe r Date Recorded How hard is it for you to pa y for the very basics like food, housing, medical care, and heating? Not very hard 07/27/2025 Hunger Vital Sign Answer Date Recorded Within the past 12 months, y ou worried that your food would run out before you got the money to buy more. Never true 07/27/20 25 Within the past 12 months, t he food you bought just didn't last and you didn't have money to get more. Never true 07/27/2025 PRAPARE - Transportation Answer Date Re corded In the past 12 months, has l ack of transportation kept you from medical appointments or from getting medications? No 11/2024 In the past 12 months, has l ack of transportation kept you from meetings, work, or from getting things needed for daily living? No 07/27/2025 Housing Stability Vital Sign Answer Lee e Recorded In the last 12 months, was t here a time when you were not able to pay the mortgage or rent on time? No 07/27/2025 In the past 12 months, how m any times have you moved where you were living? 0 07/27/2025 At any time in the past 12 m [facility], were you homeless or living in a mcc (including now)? No 07/27/2025 [facility] Utilities Answer Date Recorded In the past 12 months has th e electric, gas, oil, or water company threatened to shut off services in your home? No 07/27/2025 Personal Safety Answer Date Recorded Have you ever been in or are you currently in a harmful physical or emotional relationship or is someone making you feel afraid or unsafe? Denies 07/24/2025 Education Answer Date Recorded What is the highest level of school you have completed or the highest degree you have received? Some college, no degree 07/27/2025 Comments No Sex and Gender Information Value Date Recorded Sex Assigned at Not on file Legal Sex Female 1:23 PM [employer] Gender Identity Not on file Sexual Orientation Not on file Obstetrics History Para Term AB IAB SAB Ectopic Multiple Livin g Live Births 4 4 Date Outcome GA Total Labor Labor/2nd/3rd Weight Sex Type Anes PTL Alisia A1 A5 Name Clin Last Filed Vital Signs Vital Sign Reading Time Taken Comments Blood Pressure 137/84 07/27/2025 3:57 PM [employer]ICER Pulse 67 07/27/2025 3:57 PM [employer] DEF[employer] OFFICER Temperature 36.4 C (97.6 F) 07/27/2025 3:57 PM [employer]ICER Respiratory Rate 18 07/27/2025 3:57 PM [employer]ICER Oxygen Saturation 96% 07/27/2025 3:57 PM [employer]ICER Inhaled Oxygen Concentration - - Weight 79.3 kg (174 lb 13.2 oz) 07/24/2025 5:16 PM CDT Height 157.5 cm (5' 2) 07/24/2025 5:16 PM CDT Body Mass Index 31.98 07/24/2025 5:16 PM CDT Plan of Treatment Health Maintenance Due Date Last Done Comments Osteoporosis Screening-Bone Density Scan 1950 DTaP/Tdap/Td Vaccine (1 - Tdap) 1961 Well Visit 65+ 08/18/2025 08/18/2024 Hemoglobin A1C 01/14/2026 07/16/2025, 07/0 05/2025, 03/05/2024, Additional history exists Influenza Vaccine (#1) 2026 11/05/2024 Postp oned from 05/25/2025 (Patient declined, but will receive in the future) Zoster Vaccine (1 of 2) 03/25/2026 Post poned from 2002 (Insurance / Financial) Albumin Creatinine Ratio, Urine 04/01/2026 04/01/2025, 03/05/2024 Foot Exam 04/01/2026 04/01/2025, 02/22, 03/05/2024 Lipid Panel 04/01/2026 04/01/2025, 01/2024, 11/17/2023 Depression Screening 06/23/2026 06/23/2025, 06/23/2025, 04/01/2025, Additional history exists Breast Cancer Screening-Mammogram 07/15/2026 07/15/2025 Dilated Eye Exam 07/24/2026 04/02/2024 Postponed f rom 04/02/2025 (Patient declined, but will receive in the future) Fall Risk Assessment 07/27/2026 07/27/2025, 11/12/2024, 08/18/2024, Additional history exists eGFR 07/27/2026 07/27/2025, 10/2024, 07/25/2025, Additional history exists Colon Cancer Screening-Colonoscopy 07/22/2027 07/22/2024, 05/16/2024 Pneumococcal vaccine 65+ Completed 02/05/2024 Hepatitis B Screening Completed 11/04/2024 Hepatitis C Screening Completed 11/04/2024, 024 Medical Devices Implanted Type Area Transplant Case Manager Device Identifier Shelf Expiration Date Model / Serial / Lot Synthes Schanz 5mm 170mm 50mm Blunt Trocar Point Xlong Screw External 294.55 - [id number] Implanted:Qty: 2 on 08/29/2024 by Harjinder Obrien MD at [facility] Right: Ankle Synthes 294.55 / / Synthes Steinmann 5mm 5.5mm 275mm Central Thread Pin Fixation Large 293.890 - [id number] Implanted:Qty: 1 on 08/29/2024 by Harjinder Obrien MD at [facility] Right: Ankle Synthes 293.890 / / [employer] Screw Bone Cortical Threaded 2.7x80mm Ti Ar-38681-35 - [id number] Implanted:Qty: 2 on 09/01/2024 by Florentino Mcgowan MD at [facility] [employer] AR-21296-9 0 / / [employer] Plate Bone T Shape 6 Hole 2 Hole Head 2.7mm Ti [id number] - [id number] Implanted:Qty: 1 on 09/01/2024 by Florentino Mcgowan MD at [facility] [employer] AR-09210S- 26 / / [employer] Screw Bone Cortical Threaded 2.7x42mm Ti Ar-04809-10 - [id number] Implanted:Qty: 1 on 09/01/2024 by Florentino Mcgowan MD at [facility] [employer] AR-95341-3 2 / / [employer] Screw Bone Cortical Threaded 2.7x34mm Ti Ar-77931-71 - [id number] Implanted:Qty: 1 on 09/01/2024 by Florentino Mcgowan MD at [facility] [employer] AR-70360-2 4 / / [employer] Screw Bone Cortical Threaded 2.7x36mm Ti Ar-14733-03 - [id number] Implanted:Qty: 1 on 09/01/2024 by Florentino Mcgowan MD at [facility] [employer] AR-43007-0 6 / / [employer] Screw Bone Threaded 2.7x40mm Ti Ou-[id number]-07 - [id number] Implanted:Qty: 1 on 09/01/2024 by Florentino Mcgowan MD at [facility] [employer] AR-01409S- 40 / / [employer] Low Profile Screws 3.5mm 48mm Modular Self Drill Solid Ankle Ar-8835-48 - [id number] Implanted:Qty: 1 on 09/01/2024 by Florentino Mcgowan MD at [facility] [employer] AR-8835-48 / / [employer] Screw Bone Cortical Solid Full Thread Non Locking 3.5x52mm Ss Ar-8835-52 - [id number] Implanted:Qty: 1 on 09/01/2024 by Florentino Mcgowan MD at [facility] [employer] AR-8835-52 / / 3.5 Cortical Screw Implanted:Qty: 1 on 09/01/2024 by Florentino Mcgowan MD at [facility] [employer] AR-8835-54 / / Description:inactive [employer] Screw Bone Cortical Threaded 2.7x20mm Ti Ar-80862-10 - [id number] Implanted:Qty: 1 on 09/01/2024 by Florentino Mcgowan MD at [facility] [employer] AR-15112-0 0 / / [employer] Screw Bone Cortical Threaded 2.7x22mm Ti Ar-16401-27 - [id number] Implanted:Qty: 1 on 09/01/2024 by Florentino Mcgowan MD at [facility] [employer] AR-10162-7 2 / / [employer] Plate Bone Locking 6 Hole Right Distal Fibula Internalbrace Ss Ps-[id number]-91 - [id number] Implanted:Qty: 1 on 09/01/2024 by Florentino Mcgowan MD at [facility] [employer] AR-8943DR- 06 / / [employer] Low Profile Screws 3.5mm 12mm Modular Solid Hexalobe Self Tap Ar-8835-12 - [id number] Implanted:Qty: 2 on 09/01/2024 by Florentino Mcgowan MD at [facility] [employer] AR-8835-12 / / [employer] Low Profile Screws 2.7mm 16mm Modular Solid Hexalobe Lock Ankle Ar-8827l-16 - [id number] Implanted:Qty: 4 on 09/01/2024 by Florentino Mcgowan MD at [facility] [employer] AR-8827L-1 6 / / [employer] Low Profile Screws 2.7mm 14mm Modular Solid Hexalobe Lock Ankle Ar-8827l-14 - [id number] Implanted:Qty: 1 on 09/01/2024 by Florentino Mcgowan MD at [facility] [employer] AR-8827L-1 4 / / [employer] Low Profile Screws 3.5mm 14mm Modular Solid Hexalobe Lock Ankle Ar-8835l-14 - [id number] Implanted:Qty: 1 on 09/01/2024 by Florentino Mcgowan MD at [facility] [employer] AR-8835L-1 4 / / Acera [employer] Restrata Wound Matrix 2nxi0dp Synthetic Sheet Rwm1-2x2 - [id number] Implanted:Qty: 1 on 10/31/2024 by Florentino Mcgowan MD at [facility] [employer] RWM-1 2X2 / / Restrata Minimatrix Implanted:Qty: 1 on 10/31/2024 by Florentino Mcgowan MD at [facility] [employer]. 05/02/2026 [id number] / / [id number] Acera Inc Restrata Mini Matrix 250mg Micronized Powder Rmini-250 - [id number] Implanted:Qty: 1 on 10/31/2024 by Florentino Mcgowan MD at [facility] [employer] RMINI-250 / / [id number] [employer] Angio-Seal Vip 6fr Closere Device [id number] - [id number] Implanted:Qty: 1 on 07/20/2025 by Mary Vee MD at [facility] [employer] 02/06/2026 [id number] / / [id number] Procedures Procedure Name Priority Date/Time Associated Diagnosis Comments POCT GLUCOSE DEVICE Routine 07/27/2025 5 :07 PM [employer]ER POCT GLUCOSE DEVICE Routine 07/27/2025 11:15 AM [employer]ER POCT GLUCOSE DEVICE Routine 07/27/2025 7 :42 AM [employer]ER EGFR Routine 07/27/2025 2:42 AM [employer]ER DIFFERENTIAL AUTO Routine 07/27/2025 2:4 2 AM [employer]ER COMPREHENSIVE METABOLIC PANEL Routine 07/27/2025 2:42 AM [employer]ER CBC WITH AUTO DIFFERENTIAL Routine 07/27/2025 2:42 AM [employer]ER PHOSPHORUS Routine 07/27/2025 2:42 AM [employer]ER POCT GLUCOSE DEVICE Routine 07/27/2025 1 :49 AM [employer]ICER POCT GLUCOSE DEVICE Routine 07/26/2025 8 :37 PM [employer] OFFICER POCT GLUCOSE DEVICE Routine 07/26/2025 4 :04 PM [employer]ICER POCT GLUCOSE DEVICE Routine 07/26/2025 12:03 PM [employer]ER POCT GLUCOSE DEVICE Routine 07/26/2025 9 :40 AM [employer]ER POCT GLUCOSE DEVICE Routine 07/26/2025 8 :48 AM [employer]ICER POCT GLUCOSE DEVICE Routine 07/26/2025 3 :37 AM [employer] EGFR Routine 07/26/2025 1:18 AM CDT DIFFERENTIAL AUTO Routine 07/26/2025 1:1 8 AM CDT COMPREHENSIVE METABOLIC PANEL Routine 07/26/2025 1:18 AM CDT CBC WITH AUTO DIFFERENTIAL Routine 07/26/2025 1:18 AM CDT PHOSPHORUS Routine 07/26/2025 1:18 AM CDT MAGNESIUM Routine 07/26/2025 1:18 AM CDT POCT GLUCOSE DEVICE Routine 07/25/2025 9 :40 PM CDT POCT GLUCOSE DEVICE Routine 07/25/2025 5 :07 PM CDT POCT GLUCOSE DEVICE Routine 07/25/2025 12:05 PM CDT POCT GLUCOSE DEVICE Routine 07/25/2025 9 :32 AM CDT POCT GLUCOSE DEVICE Routine 07/25/2025 8 :17 AM CDT EGFR Routine 07/25/2025 3:40 AM CDT DIFFERENTIAL AUTO Routine 07/25/2025 3:4 0 AM CDT COMPREHENSIVE METABOLIC PANEL Routine 07/25/2025 3:40 AM CDT CBC WITH AUTO DIFFERENTIAL Routine 07/25/2025 3:40 AM CDT PHOSPHORUS Routine 07/25/2025 3:40 AM CDT MAGNESIUM Routine 07/25/2025 3:40 AM CDT POCT GLUCOSE DEVICE Routine 07/25/2025 2 :11 AM CDT POCT GLUCOSE DEVICE Routine 07/24/2025 8 :27 PM CDT TROPONIN T HIGH-SENSITIVITY 6-HOUR Timed 07/24/2025 6:24 PM CDT TROPONIN T HIGH-SENSITIVITY 4-HR Timed 07/24/2025 5:36 PM CDT POCT GLUCOSE DEVICE Routine 07/24/2025 5 :21 PM CDT DE CRITICAL CARE ILL/INJURED PATIENT ADDL 30 MIN Routine 07/24/2025 4:00 PM CDT DE CRITICAL CARE ILL/INJURED PATIENT INIT 30-74 MIN Routine 07/24/2025 4:00 PM CDT MAGNESIUM Add-On 07/24/2025 3:01 PM CDT TROPONIN T HIGH-SENSITIVITY 2-HOUR Timed 07/24/2025 3:01 PM CDT XR CHEST 1 VIEW ED 07/24/2025 1:07 PM CDT EGFR STAT 07/24/2025 12:43 PM CDT DIFFERENTIAL AUTO STAT 07/24/2025 12:43 PM CDT TROPONIN T HIGH-SENSITIVITY SERIES (BASELINE, 2HR, 4HR, 6HR) STAT 07/24/2025 12:43 PM CDT COMPREHENSIVE METABOLIC PANEL STAT 07/24/2025 12:43 PM CDT CBC WITH AUTO DIFFERENTIAL STAT 07/24/2025 12:43 PM CDT POCT GLUCOSE DEVICE Routine 07/24/2025 12:41 PM CDT ECG 12-LEAD STAT 07/24/2025 12:31 PM CDT LEFT HEART CATHETERIZATION WITH CORONARY ANGIOGRAPHY AND WITH AND WITHOUT LEFT VENTRICULOGRAM Routine 07/20/2025 2:50 PM CDT Dilated cardiomyopathy (HCC) EGFR Routine 07/20/2025 3:44 AM CDT CBC WITHOUT DIFFERENTIAL Routine 07/20/2025 3:44 AM CDT COMPREHENSIVE METABOLIC PANEL Routine 07/20/2025 3:44 AM CDT EGFR Routine 07/19/2025 3:58 AM CDT CBC WITHOUT DIFFERENTIAL Routine 07/19/2025 3:58 AM CDT COMPREHENSIVE METABOLIC PANEL Routine 07/19/2025 3:58 AM CDT EGFR Routine 07/18/2025 6:40 AM CDT CBC WITHOUT DIFFERENTIAL Routine 07/18/2025 6:40 AM CDT COMPREHENSIVE METABOLIC PANEL Routine 07/18/2025 6:40 AM CDT EGFR Routine 07/17/2025 4:17 AM CDT DIFFERENTIAL AUTO Routine 07/17/2025 4:1 7 AM CDT COMPREHENSIVE METABOLIC PANEL Routine 07/17/2025 4:17 AM CDT CBC WITH AUTO DIFFERENTIAL Routine 07/17/2025 4:17 AM CDT POCT GLUCOSE DEVICE Routine 07/16/2025 8 :27 AM CDT EGFR Routine 07/16/2025 5:29 AM CDT DIFFERENTIAL AUTO Routine 07/16/2025 5:2 9 AM CDT HEMOGLOBIN A1C Routine 07/16/2025 5:29 AM CDT MAGNESIUM Routine 07/16/2025 5:29 AM CDT COMPREHENSIVE METABOLIC PANEL Routine 07/16/2025 5:29 AM CDT CBC WITH AUTO DIFFERENTIAL Routine 07/16/2025 5:29 AM CDT POCT GLUCOSE DEVICE Routine 07/16/2025 3 :43 AM CDT URINALYSIS, MICROSCOPIC ONLY Routine 07/15/2025 6:22 PM CDT URINE CULTURE Routine 07/15/2025 6:22 PM CDT URINALYSIS AND REFLEX TO MICROSCOPIC AND CULTURE Routine 07/15/2025 6:22 PM CDT TRANSTHORACIC ECHO (TTE) COMPLETE W DOPPLER/CF W CONTRAST Routine 07/15/2025 4:00 PM CDT US VEIN DUPLEX LOWER EXTREMITY BILATERAL COMPLETE IP Routine 07/15/2025 3:15 PM CDT US BREAST RIGHT COMPLETE IP Routine 07/15/2025 2:23 PM CDT DIAGNOSTIC MAMMOGRAM BILATERAL W ANDREA IP Routine 07/15/2025 1:26 PM CDT BLOOD SMEAR REVIEW Routine 07/15/2025 10:38 AM CDT EGFR Routine 07/15/2025 10:38 AM CDT CBC WITHOUT DIFFERENTIAL Routine 07/15/2025 10:38 AM CDT BASIC METABOLIC PANEL Routine 07/15/2025 10:38 AM CDT TROPONIN T HIGH-SENSITIVITY 6-HOUR Timed 07/15/2025 10:38 AM CDT TROPONIN T HIGH-SENSITIVITY 2-HOUR Timed 07/15/2025 6:31 AM CDT PRO B-TYPE NATRIURETIC PEPTIDE Routine 07/15/2025 4:19 AM CDT TROPONIN T HIGH-SENSITIVITY SERIES (BASELINE, 2HR, 4HR, 6HR) Routine 07/15/2025 4:[address] CHEST W CONTRAST ED 07/15/2025 2 :55 AM CDT ECG 12-LEAD STAT 07/15/2025 2:33 AM CDT AEROBIC CULTURE AND GRAM STAIN Routine 07/15/2025 12:47 AM CDT BLOOD CULTURE STAT 07/15/2025 12:46 AM CDT EGFR STAT 07/15/2025 12:39 AM CDT DIFFERENTIAL AUTO STAT 07/15/2025 12:39 AM CDT SEPSIS LACTATE WITH REFLEX STAT 07/15/2025 12:39 AM CDT COMPREHENSIVE METABOLIC PANEL STAT 07/15/2025 12:39 AM CDT CBC WITH AUTO DIFFERENTIAL STAT 07/15/2025 12:39 AM CDT BLOOD CULTURE STAT 07/15/2025 12:39 AM CDT XR ANKLE RIGHT 3 OR MORE VIEWS Schedule Routine, Read Routine (OP Routine) 06/04/2025 9:26 AM CDT Closed trimalleolar fracture of right ankle with routine healing, subsequent encounter LIPID PANEL Routine 04/01/2025 10:33 AM CDT Type 2 diabetes mellitus with hyperlipidemia (HCC) ALBUMIN CREATININE RATIO, URINE Routine 04/01/2025 10:33 AM CDT Type 2 diabetes mellitus with hyperlipidemia (HCC) HEPATITIS C ANTIBODY Routine 11/04/2024 9:02 PM [employer]ER COLONOSCOPY 07/22/2024 10:32 AM CDT HM DIABETES EYE EXAM Routine 04/02/2024 2:30 PM CDT from Last 3 Months or Most Recently Relevant to Health Maintenance Results * POCT glucose (07/27/2025 5:07 PM [employer]ER) Glucose, POC 88 70 - 199 mg/dL Blood 07/27/2025 5:07 PM [employer] OFFICER 07/27/2025 5:07 PM [employer] OFFICER us Brandt Fernandez Jr., MD LAB POCT ORDERABLES - DEVICE Final Result Performing Organization Address [facility] Co de Phone Number [facility] ([place]) [address] [facility] [place] [address] * POCT glucose (07/27/2025 11:15 AM [employer]ER) Glucose, POC 94 70 - 199 mg/dL Blood 07/27/2025 11:1 5 AM [employer] OFFICER 07/27/2025 11:15 AM [employer]ER us Brandt Fernandez Jr., MD LAB POCT ORDERABLES - DEVICE Final Result Performing Organization Address City/[facility]/ZIP Co de Phone Number [facility] ([place]) [address] [facility] [place] [address] * POCT glucose (07/27/2025 7:42 AM [employer]ER) Glucose, POC 86 70 - 199 mg/dL Blood 07/27/2025 7:42 AM [employer] OFFICER 07/27/2025 7:42 AM [employer] OFFICER us Brandt Fernandez Jr., MD LAB POCT ORDERABLES - DEVICE Final Result Performing Organization Address [facility] Co de Phone Number [facility] ([place]) [address] [facility] [place] [address] * (ABNORMAL) eGFR (07/27/2025 2:42 AM [employer]ER) eGFR 50(L) >=60 mL/min/1. 73 m2 [...] interpretive data was last reviewed 2021. Blood 07/27/2025 2:42 AM [employer]ICER 07/27/2025 3:40 AM [employer]ER us Geovanni Perez MD LAB BLOOD ORDERABLES Final Resul t Performing Organization Address City/[facility]/ZIP Co de Phone Number [facility] ([place]) [address] [facility] [place] [address] * (ABNORMAL) Differential, auto (07/27/2025 2:42 AM [employer]) Neutrophil abs 1.43(L) 1.50 - 6.50 K/cumm Imm gran abs 0.00 0.00 - 0.10 K/cumm [facility] ([place]) Lymphocyte abs 1.92 0.80 - 3.30 K/cumm [facility] ([place]) Monocyte abs 0.46 0.20 - 0.80 K/cumm [facility] ([place]) Eosinophil abs 0.07 0.00 - 0.50 K/cumm [facility] ([place]) Basophil abs 0.02 0.00 - 0.10 K/cumm [facility] ([place]) Neutrophil pct 36.7 % [facility] ([place]) Comment: Interpretive Data Percent cell count reference ranges are not reported, since discordance with absolute values may lead to misinterpretation of CBC data. Current Interpretive Data was last revised on 2018. Imm gran pct 0.0 % [facility] ([place]) Comment: Interpretive Data Percent cell count reference ranges are not reported, since discordance with absolute values may lead to misinterpretation of CBC data. Current Interpretive Data was last revised on 2018. Lymphocyte pct 49.2 % [facility] ([place]) Comment: Interpretive Data Percent cell count reference ranges are not reported, since discordance with absolute values may lead to misinterpretation of CBC data. Current Interpretive Data was last revised on 2018. Monocyte pct 11.8 % [facility] ([place]) Comment: Interpretive Data Percent cell count reference ranges are not reported, since discordance with absolute values may lead to misinterpretation of CBC data. Current Interpretive Data was last revised on 2018. Eosinophil pct 1.8 % [facility] ([place]) Comment: Interpretive Data Percent cell count reference ranges are not reported, since discordance with absolute values may lead to misinterpretation of CBC data. Current Interpretive Data was last revised on 2018. Basophil pct 0.5 % [facility] ([place]) Comment: Interpretive Data Percent cell count reference ranges are not reported, since discordance with absolute values may lead to misinterpretation of CBC data. Current Interpretive Data was last revised on 2018. Blood 07/27/2025 2:42 AM [employer]ER 07/27/2025 3:39 AM [employer]ER Fredrick Hugo MD LAB BLOOD ORDERABLES Final Resu lt [facility] ([place]) [address] [facility] [place] [address] * (ABNORMAL) CBC with auto differential (07/27/2025 2:42 AM [employer]) Pathologist [facility] WBC 3.90 3.80 - 9.90 K/cumm Hgb 11.3(L) 11.9 - 15.5 g/dL [facility] ([place]) Hct 34.0(L) 35.6 - 45.5 % [facility] ([place]) Plt 185 150 - 400 K/cumm [facility] ([place]) MPV Not Measured 9.1 - 12.3 fL [facility] ([place]) RBC 4.49 3.90 - 5.20 M/cumm [facility] ([place] MCV 75.7(L) 81.3 - 96.4 fL [facility] ([place] MCH 25.2(L) 27.1 - 33.3 pg [facility] ([place]) MCHC 33.2 32.3 - 35.7 g/dL [facility] ([place]) RDW CV 25.0(H) 11.1 - 14.9 % [facility] ([place] RDW SD 67.4(H) 35.7 - 48.1 fL [facility] ([place]) NRBC abs 0.00 0.00 - 0.01 K/cumm [facility] ([place]) Blood 07/27/2025 2:42 AM [employer]ER 07/27/2025 3:39 AM [employer]ER Fredrick Hugo MD LAB BLOOD ORDERABLES Final Resu lt Performing Organization Address City/[facility]/ZIP Co de Phone Number [facility] ([place]) [address] [facility] [place] [address] * Phosphorus (07/27/2025 2:42 AM [employer]ER) Phosphorus, pl 3.4 2.3 - 4.5 mg/dL Blood 07/27/2025 2:42 AM [employer]ER 07/27/2025 3:40 AM [employer]ER us Fredrick Hugo MD LAB BLOOD ORDERABLES Final Resu lt [facility] ([place]) [facility] [place] [address] * (ABNORMAL) Comprehensive metabolic panel (07/27/2025 2:42 AM [employer]ER) Sodium 140 135 - 145 mmol/L Potassium, pl 4.2 3.3 - 4.9 mmol/L [facility] Chloride 106 97 - 110 mmol/L [facility] CO2 26 22 - 32 mmol/L [facility] Anion gap 8 2 - 15 mmol/L [facility] BUN 14 6 - 25 mg/dL [facility] ([place]) Creatinine 1.17(H) 0.60 - 1.10 mg/dL [facility] ([place]) Glucose 102 70 - 199 mg/dL [facility] ([place]) Comment: Interpretive Data Fasting glucose >/= 126 [...] interpretive data was last revised 2022. Calcium 9.1 8.5 - 10.3 mg/dL [facility] ([place]) Bilirubin, total 0.9 0.1 - 1.2 mg/dL [facility] ([place]) Protein, pl 6.6 6.5 - 8.5 g/dL [facility] ([place]) Albumin 3.3(L) 3.5 - 5.0 g/dL [facility] ([place]) Alk phos 68 40 - 130 Units/L [facility] ([place]) ALT 22 7 - 45 Units/L [facility] AST 47(H) 10 - 45 Units/L [facility] ([place]) Blood 07/27/2025 2:42 AM [employer] 07/27/2025 3:40 AM [employer] us Geovanni Perez MD LAB BLOOD ORDERABLES Final Resul t [facility] ([place]) [address] [facility] [place] [address] * POCT glucose (07/27/2025 1:49 AM [employer]ER) Glucose, POC 110 70 - 199 mg/dL Blood 07/27/2025 1:49 AM [employer]ER 07/27/2025 1:49 AM [employer]ER us Brandt Fernandez Jr., MD LAB POCT ORDERABLES - DEVICE Final Result Performing Organization Address City/[facility]/ZIP Co de Phone Number [facility] ([place]) [address] [facility] [place] [address] * POCT glucose (07/26/2025 8:37 PM [employer]ER) Glucose, POC 155 70 - 199 mg/dL Blood 07/26/2025 8:37 PM [employer]ER 07/26/2025 8:37 PM [employer]ER us Brandt Fernandez Jr., MD LAB POCT ORDERABLES - DEVICE Final Result Performing Organization Address City/[facility]/ZIP Co de Phone Number [facility] ([place]) [address] [facility] [place] [address] * POCT glucose (07/26/2025 4:04 PM [employer]ER) Glucose, POC 104 70 - 199 mg/dL Blood 07/26/2025 4:04 PM [employer]ICER 07/26/2025 4:04 PM [employer]ICER us Brandt Fernandez Jr., MD LAB POCT ORDERABLES - DEVICE Final Result Performing Organization Address [facility] Co de Phone Number [facility] ([place]) 1 [facility] [address] * POCT glucose (07/26/2025 12:03 PM [employer]ER) Glucose, POC 92 70 - 199 mg/dL Blood 07/26/2025 12:0 3 PM [employer]ER 07/26/2025 12:03 PM [employer]ER us Brandt Fernandez Jr., MD LAB POCT ORDERABLES - DEVICE Final Result Performing Organization Address [facility] de Phone Number [facility] ([place]) 1 [facility] [address] * POCT glucose (07/26/2025 9:40 AM [employer]ER) Glucose, POC 127 70 - 199 mg/dL Blood 07/26/2025 9:40 AM [employer]ICER 07/26/2025 9:40 AM [employer]ICER us Brandt Fernandez Jr., MD LAB POCT ORDERABLES - DEVICE Final Result Performing Organization Address [facility] Co de Phone Number [facility] ([place]) 1 [facility] [address] * POCT glucose (07/26/2025 8:48 AM [employer]ER) Glucose, POC 81 70 - 199 mg/dL Blood 07/26/2025 8:48 AM [employer]ICER 07/26/2025 8:48 AM [employer]ICER Brandt Fernandez Jr., MD LAB POCT ORDERABLES - DEVICE Final Result Performing Organization Address City/[facility] Co de Phone Number [facility] ([place]) [address] [facility] [place] [address] * POCT glucose (07/26/2025 3:37 AM [employer]ER) Glucose, POC 84 70 - 199 mg/dL Blood 07/26/2025 3:37 AM [employer]ICER 07/26/2025 3:37 AM [employer]ER us Brandt Fernandez Jr., MD LAB POCT ORDERABLES - DEVICE Final Result Performing Organization Address [facility] Co de Phone Number [facility] ([place]) [address] [place] [address] * (ABNORMAL) eGFR (07/26/2025 1:18 AM CDT) [facility] eGFR 53(L) >=60 mL/min/1. 73 m2 Comment: Interpretive Data [...] interpretive data was last reviewed 2021. Blood 07/26/2025 1:18 AM CDT 07/26/2025 3:12 AM [employer] us Geovanni Perez MD LAB BLOOD ORDERABLES Final Resul t [facility] ([place]) [address] [place] [address] * (ABNORMAL) Differential, auto (07/26/2025 1:18 AM CDT) Neutrophil abs 1.24(L) 1.50 - 6.50 K/cumm Imm gran abs 0.00 0.00 - 0.10 K/cumm [facility] ([place]) Lymphocyte abs 1.98 0.80 - 3.30 K/cumm [facility] ([place]) Monocyte abs 0.34 0.20 - 0.80 K/cumm [facility] ([place]) Eosinophil abs 0.05 0.00 - 0.50 K/cumm [facility] ([place]) Basophil abs 0.02 0.00 - 0.10 K/cumm [facility] ([place]) Neutrophil pct 34.1 % [facility] Comment: Interpretive Data Percent cell count reference ranges are not reported, since discordance with absolute values may lead to misinterpretation of CBC data. Current Interpretive Data was last revised on 2018. Imm gran pct 0.0 % [facility] ([place]) Comment: Interpretive Data Percent cell count reference ranges are not reported, since discordance with absolute values may lead to misinterpretation of CBC data. Current Interpretive Data was last revised on 2018. Lymphocyte pct 54.5 % [facility] ([place]) Comment: Interpretive Data Percent cell count reference ranges are not reported, since discordance with absolute values may lead to misinterpretation of CBC data. Current Interpretive Data was last revised on 2018. Monocyte pct 9.4 % [facility] ([place]) Comment: Interpretive Data Percent cell count reference ranges are not reported, since discordance with absolute values may lead to misinterpretation of CBC data. Current Interpretive Data was last revised on 2018. Eosinophil pct 1.4 % [facility] ([place] Comment: Interpretive Data Percent cell count reference ranges are not reported, since discordance with absolute values may lead to misinterpretation of CBC data. Current Interpretive Data was last revised on 2018. Basophil pct 0.6 % [facility] ([place]) Comment: Interpretive Data Percent cell count reference ranges are not reported, since discordance with absolute values may lead to misinterpretation of CBC data. Current Interpretive Data was last revised on 2018. Blood 07/26/2025 1:18 AM CDT 07/26/2025 3:10 AM [employer] Fredrick Hugo MD LAB BLOOD ORDERABLES Final Resu lt [facility] ([place]) [facility] [place] [address] * (ABNORMAL) CBC with auto differential (07/26/2025 1:18 AM CDT) WBC 3.63(L) 3.80 - 9.90 K/cumm Hgb 12.0 11.9 - 15.5 g/dL [facility] ([place]) Hct 36.0 35.6 - 45.5 % [facility] ([place]) Plt 175 150 - 400 K/cumm [facility] ([place]) MPV Not Measured 9.1 - 12.3 fL [facility] ([place]) RBC 4.79 3.90 - 5.20 M/cumm [facility] ([place]) MCV 75.2(L) 81.3 - 96.4 fL [facility] ([place]) MCH 25.1(L) 27.1 - 33.3 pg [facility] ([place]) MCHC 33.3 32.3 - 35.7 g/dL [facility] ([place]) RDW CV 24.9(H) 11.1 - 14.9 % [facility] ([place]) RDW SD 65.3(H) 35.7 - 48.1 fL [facility] ([place]) NRBC abs 0.00 0.00 - 0.01 K/cumm [facility] ([place]) Blood 07/26/2025 1:18 AM CDT 07/26/2025 3:10 AM [employer] Fredrick Hugo MD LAB BLOOD ORDERABLES Final Resu lt [facility] ([place]) 1 [facility] [place] [address] * Phosphorus (07/26/2025 1:18 AM CDT) Pathologist [facility] Phosphorus, pl 2.8 2.3 - 4.5 mg/dL Blood 07/26/2025 1:18 AM CDT 07/26/2025 3:12 AM [employer] Fredrick Hugo MD LAB BLOOD ORDERABLES Final Resu lt Performing Organization Address City/[facility]/ZIP Co de Phone Number [facility] ([place]) 1 [place] [address] * Magnesium (07/26/2025 1:18 AM CDT) [facility] Magnesium 2.1 1.4 - 2.5 mg/dL Blood 07/26/2025 1:18 AM CDT 07/26/2025 3:12 AM [employer] Fredrick Hugo MD LAB BLOOD ORDERABLES Final Resu lt Performing Organization Address City/[facility]/ZIP Co de Phone Number [facility] ([place]) 1 [place] [address] * (ABNORMAL) Comprehensive metabolic panel (07/26/2025 1:18 AM CDT) [facility] Sodium 137 135 - 145 mmol/L Potassium, pl 4.2 3.3 - 4.9 mmol/L [facility] ([place]) Chloride 101 97 - 110 mmol/L [facility] ([place]) CO2 25 22 - 32 mmol/L [facility] ([place]) Anion gap 11 2 - 15 mmol/L [facility] ([place]) BUN 15 6 - 25 mg/dL [facility] ([place]) Creatinine 1.10 0.60 - 1.10 mg/dL [facility] ([place]) Glucose 93 70 - 199 mg/dL [facility] ([place]) Comment: Interpretive Data Fasting glucose >/= 126 [...] interpretive data was last revised 2022. Calcium 9.5 8.5 - 10.3 mg/dL [facility] ([place]) Bilirubin, total 1.3(H) 0.1 - 1.2 mg/dL [facility] ([place]) Protein, pl 7.4 6.5 - 8.5 g/dL [facility] ([place]) Albumin 3.6 3.5 - 5.0 g/dL [facility] ([place]) Alk phos 74 40 - 130 Units/L [facility] ([place]) ALT 24 7 - 45 Units/L [facility] ([place]) AST 57(H) 10 - 45 Units/L [facility] ([place]) Blood 07/26/2025 1:18 AM CDT 07/26/2025 3:12 AM [employer] us Geovanni Perez MD LAB BLOOD ORDERABLES Final Resul t Performing Organization Address City/[facility]/ZIP Co de Phone Number [facility] ([place]) 1 [facility] [place] [address] * POCT glucose (07/25/2025 9:40 PM CDT) [facility] Signature Glucose, POC 117 70 - 199 mg/dL Blood 07/25/2025 9:40 PM CDT 07/25/2025 9:40 PM CDT us Brandt Fernandez Jr., MD LAB POCT ORDERABLES - DEVICE Final Result [facility] ([place]) 1 [facility] [place] [address] * POCT glucose (07/25/2025 5:07 PM CDT) Glucose, POC 108 70 - 199 mg/dL Blood 07/25/2025 5:07 PM CDT 07/25/2025 5:07 PM CDT Brandt Fernandez Jr., MD LAB POCT ORDERABLES - DEVICE Final Result Performing Organization Address City/[facility]/ZIP Co de Phone Number [facility] ([place]) 1 [facility] [address] * POCT glucose (07/25/2025 12:05 PM CDT) Glucose, POC 119 70 - 199 mg/dL Blood 07/25/2025 12:0 5 PM CDT 07/25/2025 12:05 PM CDT us Brandt Fernandez Jr., MD LAB POCT ORDERABLES - DEVICE Final Result Performing Organization Address City/[facility] Co de Phone Number [facility] ([place]) 1 [facility] [address] * POCT glucose (07/25/2025 9:32 AM CDT) Glucose, POC 88 70 - 199 mg/dL Blood 07/25/2025 9:32 AM CDT 07/25/2025 9:32 AM CDT Brandt Fernandez Jr., MD LAB POCT ORDERABLES - DEVICE Final Result Performing Organization Address City/[facility]/ZIP Co de Phone Number [facility] ([place]) 1 [facility] [place] [address] * POCT glucose (07/25/2025 8:17 AM CDT) Glucose, POC 75 70 - 199 mg/dL Blood 07/25/2025 8:17 AM CDT 07/25/2025 8:17 AM CDT us Brandt Fernandez Jr., MD LAB POCT ORDERABLES - DEVICE Final Result Performing Organization Address City/[facility] Co de Phone Number [facility] ([place]) 1 [facility] [place] [address] * eGFR (07/25/2025 3:40 AM CDT) eGFR 62 >=60 mL/min/1. 73 m2 Comment: Interpretive Data [...] interpretive data was last reviewed 2021. Blood 07/25/2025 3:40 AM CDT 07/25/2025 5:06 AM CDT us Geovanni Perez MD LAB BLOOD ORDERABLES Final Resul t Performing Organization Address City/[facility]/ZIP Co de Phone Number [facility] ([place]) 1 [facility] [place] [address] * (ABNORMAL) Differential, auto (07/25/2025 3:40 AM CDT) Neutrophil abs 1.24(L) 1.50 - 6.50 K/cumm Imm gran abs 0.00 0.00 - 0.10 K/cumm [facility] ([place]) Lymphocyte abs 2.08 0.80 - 3.30 K/cumm [facility] ([place]) Monocyte abs 0.36 0.20 - 0.80 K/cumm [facility] ([place]) Eosinophil abs 0.04 0.00 - 0.50 K/cumm [facility] ([place]) Basophil abs 0.02 0.00 - 0.10 K/cumm [facility] ([place]) Neutrophil pct 33.2 % [facility] ([place]) Comment: Interpretive Data Percent cell count reference ranges are not reported, since discordance with absolute values may lead to misinterpretation of CBC data. Current Interpretive Data was last revised on 2018. Imm gran pct 0.0 % [facility] ([place]) Comment: Interpretive Data Percent cell count reference ranges are not reported, since discordance with absolute values may lead to misinterpretation of CBC data. Current Interpretive Data was last revised on 2018. Lymphocyte pct 55.6 % [facility] ([place]) Comment: Interpretive Data Percent cell count reference ranges are not reported, since discordance with absolute values may lead to misinterpretation of CBC data. Current Interpretive Data was last revised on 2018. Monocyte pct 9.6 % [facility] ([place]) Comment: Interpretive Data Percent cell count reference ranges are not reported, since discordance with absolute values may lead to misinterpretation of CBC data. Current Interpretive Data was last revised on 2018. Eosinophil pct 1.1 % [facility] ([place]) Comment: Interpretive Data Percent cell count reference ranges are not reported, since discordance with absolute values may lead to misinterpretation of CBC data. Current Interpretive Data was last revised on 2018. Basophil pct 0.5 % [facility] ([place]) Comment: Interpretive Data Percent cell count reference ranges are not reported, since discordance with absolute values may lead to misinterpretation of CBC data. Current Interpretive Data was last revised on 2018. Blood 07/25/2025 3:40 AM CDT 07/25/2025 5:05 AM CDT us Fredrick Hugo MD LAB BLOOD ORDERABLES Final Resu lt [facility] ([place]) 1 [facility] [place] [address] * (ABNORMAL) CBC with auto differential (07/25/2025 3:40 AM CDT) Pathologist [facility] WBC 3.74(L) 3.80 - 9.90 K/cumm Hgb 11.0(L) 11.9 - 15.5 g/dL [facility] ([place]) Hct 33.9(L) 35.6 - 45.5 % [facility] ([place]) Plt 171 150 - 400 K/cumm [facility] ([place]) MPV Not Measured 9.1 - 12.3 fL [facility] ([place]) RBC 4.46 3.90 - 5.20 M/cumm [facility] ([place]) MCV 76.0(L) 81.3 - 96.4 fL [facility] ([place]) MCH 24.7(L) 27.1 - 33.3 pg [facility] ([place]) MCHC 32.4 32.3 - 35.7 g/dL [facility] ([place]) RDW CV 25.1(H) 11.1 - 14.9 % [facility] ([place]) RDW SD 67.0(H) 35.7 - 48.1 fL [facility] ([place]) NRBC abs 0.00 0.00 - 0.01 K/cumm [facility] ([place]) Blood 07/25/2025 3:40 AM CDT 07/25/2025 5:05 AM CDT us Fredrick Hugo MD LAB BLOOD ORDERABLES Final Resu lt [facility] ([place]) 1 [facility] [place] [address] * Phosphorus (07/25/2025 3:40 AM CDT) Pathologist [facility] Phosphorus, pl 2.8 2.3 - 4.5 mg/dL Blood 07/25/2025 3:40 AM CDT 07/25/2025 5:06 AM CDT Fredrick Hugo MD LAB BLOOD ORDERABLES Final Resu lt [facility] ([place]) [address] [facility] [place] [address] * Magnesium (07/25/2025 3:40 AM CDT) Magnesium 1.8 1.4 - 2.5 mg/dL Blood 07/25/2025 3:40 AM CDT 07/25/2025 5:06 AM CDT Fredrick Hugo MD LAB BLOOD ORDERABLES Final Resu lt Performing Organization Address [facility] Co de Phone Number [facility] ([place]) 1 [facility] [address] * (ABNORMAL) Comprehensive metabolic panel (07/25/2025 3:40 AM CDT) Sodium 140 135 - 145 mmol/L Potassium, pl 3.4 3.3 - 4.9 mmol/L [facility] ([place]) Chloride 103 97 - 110 mmol/L [facility] ([place]) CO2 26 22 - 32 mmol/L [facility] ([place]) Anion gap 11 2 - 15 mmol/L [facility] ([place]) BUN 10 6 - 25 mg/dL [facility] ([place]) Creatinine 0.97 0.60 - 1.10 mg/dL [facility] ([place]) Glucose 100 70 - 199 mg/dL [facility] ([place]) Comment: Interpretive Data Fasting glucose >/= 126 [...] interpretive data was last revised 2022. Calcium 9.0 8.5 - 10.3 mg/dL [facility] ([place]) Bilirubin, total 1.1 0.1 - 1.2 mg/dL [facility] ([place]) Protein, pl 7.0 6.5 - 8.5 g/dL [facility] ([place]) Albumin 3.4(L) 3.5 - 5.0 g/dL [facility] ([place]) Alk phos 67 40 - 130 Units/L [facility] ([place]) ALT 21 7 - 45 Units/L [facility] ([place]) AST 50(H) 10 - 45 Units/L [facility] ([place]) Blood 07/25/2025 3:40 AM CDT 07/25/2025 5:06 AM CDT Geovanni Perez MD LAB BLOOD ORDERABLES Final Resul t Performing Organization Address City/[facility]/ZIP Co de Phone Number [facility] ([place]) 1 [facility] [place] [address] * POCT glucose (07/25/2025 2:11 AM CDT) Glucose, POC 111 70 - 199 mg/dL Blood 07/25/2025 2:11 AM CDT 07/25/2025 2:11 AM CDT Fredrick Hugo MD LAB POCT ORDERABLES - DEVICE Fi nal Result [facility] ([place]) [address] [facility] [place] [address] * POCT glucose (07/24/2025 8:27 PM CDT) Glucose, POC 140 70 - 199 mg/dL Blood 07/24/2025 8:27 PM CDT 07/24/2025 8:27 PM CDT us Fredrick Hugo MD LAB POCT ORDERABLES - DEVICE Fi nal Result Performing Organization Address City/[facility] Co de Phone Number [facility] ([place]) 1 [facility] [address] * (ABNORMAL) Troponin T high-sensitivity 6-hour (07/24/2025 6:24 PM CDT) Trop T hs 38(H) <=14 ng/L Comment: Interpretive Data For further hscTnT resources including the diagnostic algorithm and an aid in interpretation, copy and paste this link: https://nrl.[employer].org/show/hsTrop Current Interpretive Data last revised 2020. Trop T hs delta -2 ng/L [facility] ([place]) Trop T hs interp Insignificant [facility] ([place]) Blood 07/24/2025 6:24 PM CDT 07/24/2025 6:46 PM CDT Tae Amezcua MD LAB BLOOD ORDERABLES Final R esult Performing Organization Address City/[facility] Co de Phone Number [facility] ([place]) 1 [facility] [address] * (ABNORMAL) Troponin T high-sensitivity 4-hour (07/24/2025 5:36 PM CDT) Trop T hs 40(H) <=14 ng/L Comment: Interpretive Data For further hscTnT resources including the diagnostic algorithm and an aid in interpretation, copy and paste this link: https://nrl.[employer].org/show/hsTrop Current Interpretive Data last revised 2020. Trop T hs delta 0 ng/L [facility] ([place]) Trop T hs interp Insignificant [facility] ([place]) Blood 07/24/2025 5:36 PM CDT 07/24/2025 5:38 PM CDT Tae Amezcua MD LAB BLOOD ORDERABLES Final R esult [facility] ([place]) [address] [facility] [place] [address] * POCT glucose (07/24/2025 5:21 PM CDT) Glucose, POC 153 70 - 199 mg/dL Blood 07/24/2025 5:21 PM CDT 07/24/2025 5:21 PM CDT us Marlen Figueroa MD LAB POCT ORDERABLES - DEV ICE Final Result Performing Organization Address City/[facility]/ZIP Co de Phone Number [facility] ([place]) [address] [facility] [place] [address] * DE CRITICAL CARE ILL/INJURED PATIENT INIT 30-74 MIN, DE CRITICAL CARE ILL/INJURED PATIENT ADDL 30 MIN (07/24/2025 4:00 PM CDT) Narrative Tae Amezcua MD - 07/24/2025 4:00 PM CDT Tae Amezcua MD 07/24/2025 4:01 PM Critical Care Performed by: Tae Amezcua MD Authorized by: Tae Amezcua MD Critical care provider statement: As reflected in the history, physical exam, orders, notes, and/or MDM, I was personally present while the patient was critically ill and provided critical care services for 120 minutes, excluding time involved in separately billable procedures. Critical care was necessary to treat or prevent imminent or life-threatening deterioration of the following condition(s): atrial fibrillation us Tae Amezcua MD IN CLINIC/BEDSIDE ORDERABLES Final Result * (ABNORMAL) Troponin T high-sensitivity 2-hour (07/24/2025 3:01 PM CDT) Trop T hs 39(H) <=14 ng/L Comment: Interpretive Data For further hscTnT resources including the diagnostic algorithm and an aid in interpretation, copy and paste this link: https://nrl.[employer].org/show/hsTrop Current Interpretive Data last revised 2020. Trop T hs delta -1 ng/L [facility] ([place]) Trop T hs interp Insignificant [facility] ([place]) Blood 07/24/2025 3:01 PM CDT 07/24/2025 3:04 PM CDT Tae Amezcua MD LAB BLOOD ORDERABLES Final R esult Performing Organization Address City/[facility]/ZIP Co de Phone Number [facility] ([place]) [address] [facility] [place] [address] * Magnesium (07/24/2025 3:01 PM CDT) Magnesium 1.9 1.4 - 2.5 mg/dL Blood 07/24/2025 3:01 PM CDT 07/24/2025 3:04 PM CDT Tae Amezcua MD LAB BLOOD ORDERABLES Final R esult Performing Organization Address [facility] Co de Phone Number [facility] ([place]) 1 [facility] [address] * XR Chest 1 Vw Portable (If patient hemodynamically UNstable or UNable to ambulate) (07/24/2025 1:07PM CDT) Anatomical Region Laterality Modality Body, Chest N/A Computed Radiogr aphy 07/24/2025 3:05 PM CDT Impressions 07/24/2025 3:05 PM CDT Cardiomegaly, stable. Pulmonary vascularity is similar. Linear areas of scarring/atelectasis, stable. No new consolidation or large effusion. Electronically signed by: Sandy Galvan M.D. Narrative 07/24/2025 3:05 PM CDT EXAMINATION: XR CHEST 1 VIEW HISTORY: chest pain TECHNIQUE: AP portable upright COMPARISON: 11/14/[address] dated 07/15/2025. FINDINGS: There are similar lung volumes. Linear areas of scarring/atelectasis, similar to the prior study. No new consolidation. No large effusion or pneumothorax. Cardiac silhouette is enlarged. Pulmonary vascularity is within normal limits. Life best in place. Degenerative changes in the osseous structures. Procedure Note Sandy Galvan MD - 07/24/2025 EXAMINATION: XR CHEST 1 VIEW HISTORY: chest pain TECHNIQUE: AP portable upright COMPARISON: 11/14/[address] dated 07/15/2025. FINDINGS: There are similar lung volumes. Linear areas of scarring/atelectasis, similar to the prior study. No new consolidation. No large effusion or pneumothorax. Cardiac silhouette is enlarged. Pulmonary vascularity is within normal limits. Life best in place. Degenerative changes in the osseous structures. IMPRESSION: Cardiomegaly, stable. Pulmonary vascularity is similar. Linear areas of scarring/atelectasis, stable. No new consolidation or large effusion. Electronically signed by: Sandy Galvan M.D. Tae Amezcua MD IMG XR PROCEDURES Final Resu lt * (ABNORMAL) Troponin T high-sensitivity series (baseline, 2hr, 4hr, 6hr) (07/24/2025 12:43 PM CDT) Trop T hs 40(H) <=14 ng/L Comment: Interpretive Data For further hscTnT resources including the diagnostic algorithm and an aid in interpretation, copy and paste this link: https://nrl.[employer].org/show/hsTrop Current Interpretive Data last revised 2020. Blood 07/24/2025 12:4 3 PM CDT 07/24/2025 12:45 PM CDT Tae Amezcua MD LAB BLOOD ORDERABLES Final R esult [facility] [place]) 1 [facility] [place] [address] * eGFR (07/24/2025 12:43 PM CDT) eGFR 64 >=60 mL/min/1. 73 m2 Comment: [...] interpretive data was last reviewed 2021. Blood 07/24/2025 12:4 3 PM CDT 07/24/2025 12:45 PM CDT us Tae Amezcua MD LAB BLOOD ORDERABLES Final R esult [facility] ([place]) 1 [facility] [place] [address] * Differential, auto (07/24/2025 12:43 PM CDT) Neutrophil abs 1.60 1.50 - 6.50 K/cumm Imm gran abs 0.01 0.00 - 0.10 K/cumm [facility] ([place]) Lymphocyte abs 1.74 0.80 - 3.30 K/cumm [facility] ([place]) Monocyte abs 0.30 0.20 - 0.80 K/cumm [facility] ([place]) Eosinophil abs 0.03 0.00 - 0.50 K/cumm [facility] ([place]) Basophil abs 0.02 0.00 - 0.10 K/cumm [facility] ([place]) Neutrophil pct 43.3 % [facility] ([place]) Comment: Interpretive Data Percent cell count reference ranges are not reported, since discordance with absolute values may lead to misinterpretation of CBC data. Current Interpretive Data was last revised on 2018. Imm gran pct 0.3 % [facility] ([place]) Comment: Interpretive Data Percent cell count reference ranges are not reported, since discordance with absolute values may lead to misinterpretation of CBC data. Current Interpretive Data was last revised on 2018. Lymphocyte pct 47.0 % [facility] ([place]) Comment: Interpretive Data Percent cell count reference ranges are not reported, since discordance with absolute values may lead to misinterpretation of CBC data. Current Interpretive Data was last revised on 2018. Monocyte pct 8.1 % [facility] ([place]) Comment: Interpretive Data Percent cell count reference ranges are not reported, since discordance with absolute values may lead to misinterpretation of CBC data. Current Interpretive Data was last revised on 2018. Eosinophil pct 0.8 % [facility] ([place]) Comment: Interpretive Data Percent cell count reference ranges are not reported, since discordance with absolute values may lead to misinterpretation of CBC data. Current Interpretive Data was last revised on 2018. Basophil pct 0.5 % [facility] ([place]) Comment: Interpretive Data Percent cell count reference ranges are not reported, since discordance with absolute values may lead to misinterpretation of CBC data. Current Interpretive Data was last revised on 2018. Blood 07/24/2025 12:4 3 PM CDT 07/24/2025 12:45 PM CDT Tae Amezcua MD LAB BLOOD ORDERABLES Final R esult [facility] ([place]) 1 [facility] [place], [place] [id number] * (ABNORMAL) CBC with auto differential (07/24/2025 12:43 PM CDT) WBC 3.70(L) 3.80 - 9.90 K/cumm Hgb 12.4 11.9 - 15.5 g/dL [facility] ([place]) Hct 37.1 35.6 - 45.5 % [facility] ([place]) Plt 187 150 - 400 K/cumm [facility] ([place]) MPV 9.6 9.1 - 12.3 fL [facility] ([place]) RBC 4.89 3.90 - 5.20 M/cumm [facility] ([place]) MCV 75.9(L) 81.3 - 96.4 fL [facility] ([place]) MCH 25.4(L) 27.1 - 33.3 pg [facility] ([place]) MCHC 33.4 32.3 - 35.7 g/dL [facility] ([place]) RDW CV 25.2(H) 11.1 - 14.9 % [facility] ([place]) RDW SD 66.5(H) 35.7 - 48.1 fL [facility] ([place]) NRBC abs 0.00 0.00 - 0.01 K/cumm [facility] Blood Venous blood specimen / Unknown 07/24/2025 12:43 PM CDT 07/24/2025 12:45 PM CDT us Tae Amezcua MD LAB BLOOD ORDERABLES Final R esult [facility] ([place] 1 [facility] [place] [address] * (ABNORMAL) Comprehensive metabolic panel (07/24/2025 12:43 PM CDT) Sodium 141 135 - 145 mmol/L Potassium, pl 3.4 3.3 - 4.9 mmol/L [facility] ([place] Chloride 103 97 - 110 mmol/L [facility]) CO2 26 22 - 32 mmol/L [facility] ([place] Anion gap 12 2 - 15 mmol/L [facility] ([place] BUN 9 6 - 25 mg/dL [facility] ([place] Creatinine 0.94 0.60 - 1.10 mg/dL [facility] ([place] Glucose 87 70 - 199 mg/dL [facility] ([place] Comment: Interpretive Data Fasting glucose >/= 126 [...] Calcium 9.6 8.5 - 10.3 mg/dL [facility] ([place]) Bilirubin, total 1.6(H) 0.1 - 1.2 mg/dL [facility] ([place]) Protein, pl 7.9 6.5 - 8.5 g/dL [facility] ([place]) Albumin 3.8 3.5 - 5.0 g/dL [facility] ([place]) Alk phos 75 40 - 130 Units/L [facility] ([place]) ALT 24 7 - 45 Units/L [facility] ([place]) AST 55(H) 10 - 45 Units/L [facility] ([place]) Blood 07/24/2025 12:4 3 PM CDT 07/24/2025 12:45 PM CDT Tae Amezcua MD LAB BLOOD ORDERABLES Final R esult Performing Organization Address City/[facility]/ZIP Co de Phone Number [facility] ([place]) 1 [facility] [place] [address] * POCT glucose (07/24/2025 12:41 PM CDT) [facility] Signature Glucose, POC 76 70 - 199 mg/dL Blood 07/24/2025 12:4 1 PM CDT 07/24/2025 12:41 PM CDT Tae Amezcua MD LAB POCT ORDERABLES - DEVICE Final Result Performing Organization Address City/[facility]/ZIP Co de Phone Number [facility] ([place]) [address] [facility] [place] [address] * ECG 12 lead (07/24/2025 12:31 PM CDT) 07/24/2025 12:3 1 PM CDT Narrative [facility] - 07/24/2025 2:02 PM CDT Vent Rate: 139 bpm RR Interval: 431 msec DE Interval: 0 msec QRS Duration: 112 msec QT Interval: 314 msec QTC Interval: 395 msec P-R-T [place]: [id number] - 12 - 152 degrees IMPRESSION: ATRIAL FIBRILLATION WITH RAPID VENTRICULAR RESPONSE MODERATE INTRAVENTRICULAR CONDUCTION DELAY [110+ ms QRS DURATION] NONSPECIFIC T-WAVE ABNORMALITY ABNORMAL ECG No change compared to prior EKG Electronically Signed By: Farooq Haley MD Tae Amezcua MD ECG ORDERABLES Final Result [facility] * LEFT HEART CATHETERIZATION WITH CORONARY ANGIOGRAPHY AND WITH AND WITHOUT LEFT VENTRICULOGRAM (07/20/2025 2:50 PM CDT) Anatomical Region Laterality Modality X-Ray Angiograph y Narrative 07/20/2025 3:11 PM CDT CARDIAC CATHETERIZATION BRIEF CLINICAL HISTORY Ms. Rylee York is a very pleasant 74-year-old woman referred for a cardiac catheterization procedure following her presentation with cardiomyopathy to rule out obstructive coronary artery disease. Cardiac catheterization/intervention procedures were discussed in detail with the patient. The indications, risks, benefits and alternatives were discussed. The risks include, but are not limited to, , stroke, myocardial infarction, need for emergency bypass surgery, pericardial tamponade, allergy to contrast/ anaesthetic agents, contrast induced nephropathy that may require temporary or permanent dialysis, radiation injury, vascular complications, including bleeding that may require blood transfusions, retroperitoneal hematoma that may be fatal, pseudoaneurysm formation, loss of limb; arrhythmias/ respiratory failure that may need cardioversion, intubation, CPR; and possible need for repeat procedures. Patient verbalizes understanding of the risks and benefits and patient is willing to proceed with it. PROCEDURES PERFORMED 1. Left heart catheterization. 2. Left ventriculogram. 3. Selective coronary angiography. 4. Angio-Seal closure device to the right femoral arteriotomy site. GROIN Right groin. SHEATH A 5-[place] sheath in the right femoral artery. MODERATE SEDATION: Patient received 1 mg of Versed and 50 mcg of fentanyl were utilized to induce moderate sedation for a procedure duration of 13 minutes that was completely supervised. PROCEDURE DETAILS After obtaining informed consent and administering lidocaine to the right groin, a 5-[place] sheath was introduced into the right femoral artery using modified Selinger technique. Over a J-tip guidewire, a left Robyn catheter, a right Robyn catheter and a pigtail catheter were used in sequence to perform left coronary angiography, right coronary angiography and left ventriculography. Left ventricular hemodynamic studies were performed including pressure gradient across the aortic valve. Patient in general tolerated the procedure well. No immediate complications were noted. FINDINGS 1. Left main is a relatively large caliber vessel, has some mild disease in the proximal segment as well as towards the bifurcation otherwise angiographically normal. 2. Left anterior descending artery shows a good caliber vessel with a type 1 anatomy that wraps around the apex, shows mild disease in the proximal segment with the rest of the vessel angiographically normal. No side branches noticed. 3. A ramus intermediate artery is a good caliber vessel, bifurcating, with the side branch having some mild disease of about 30-40%. Both branches otherwise angiographically normal. 3. Left circumflex artery is nondominant, relatively large caliber, has angiographic normal appearance including a slender 1st obtuse marginal branch, and a distal bifurcating anatomy into the 2nd obtuse marginal branch and distal left circumflex artery. Both these branches showed corkscrew in appearance possibly suggesting a hypertension. 4. Right coronary artery is a relatively small caliber, dominant, is angiographically normal other than a mild plaque in the proximal segment of about 20%. The distal right coronary artery appears to be continuing as a PLV branch. There is a high bifurcating acute marginal branch with a long distribution. 5. Dilated left ventricle with moderate to severe left ventricle systolic dysfunction, visually estimated ejection fraction up to 30%. Global hypokinesis noted 6. Normal left ventricular filling pressures, end-diastolic pressure of 10-15 mmHg. SUMMARY OF FINDINGS 1. Mild scattered coronary artery disease with otherwise normal looking coronary anatomy. 2. Dilated cardiomyopathy with visually estimated left ventricular systolic function of about 30%. 3. Normal left ventricle filling pressures, LVEDP 10-15 millimeter of mercury PLAN Bed rest for 2 hours. IVF 0.9 NS 100 cc/hr for 2 hours. ASA 81 mg once a day. Risk factor modification strategy discussed with the patient. It included weight reduction through exercise and dietary discretion, optimal control of hypertension, lipid status. Discussed with the patient and family about the details of the procedure, the results, post cath care instructions including activity limitations explained. Ongoing hospital care for cardiomyopathy including medical management and prevention of sudden cardiac per Dr. Cortes. Mary Vee MD us Johann Cortes MD CV CARDIAC CATH PROCEDURES Fi nal Result * (ABNORMAL) eGFR (07/20/2025 3:44 AM CDT) eGFR 56(L) >=60 mL/min/1. 73 m2 Comment: [...] interpretive data was last reviewed 2021. Blood 07/20/2025 3:44 AM CDT 07/20/2025 4:38 AM CDT us Jennifer Abreu MD LAB BLOOD ORDERABLES Fi nal Result [facility] [place]) [facility] [place] [address] * (ABNORMAL) CBC without differential (07/20/2025 3:44 AM CDT) WBC 4.16 3.80 - 9.90 K/cumm Hgb 12.4 11.9 - 15.5 g/dL [facility] ([place]) Hct 37.8 35.6 - 45.5 % [facility] ([place]) Plt 300 150 - 400 K/cumm [facility] ([place]) MPV 10.3 9.1 - 12.3 fL [facility] ([place]) RBC 4.99 3.90 - 5.20 M/cumm [facility] ([place]) MCV 75.8(L) 81.3 - 96.4 fL [facility] ([place]) MCH 24.8(L) 27.1 - 33.3 pg [facility] ([place]) MCHC 32.8 32.3 - 35.7 g/dL [facility] ([place]) RDW CV 24.1(H) 11.1 - 14.9 % [facility] ([place]) RDW SD 62.6(H) 35.7 - 48.1 fL [facility] ([place]) NRBC abs 0.00 0.00 - 0.01 K/cumm [facility] ([place]) Blood 07/20/2025 3:44 AM CDT 07/20/2025 4:38 AM CDT us Zayra Mars MD LAB BLOOD ORDERABLES Karine dhaliwal Result [facility] ([place]) [facility] Department of Laboratories [place], [place] [id number] * (ABNORMAL) Comprehensive metabolic panel (07/20/2025 3:44 AM CDT) Sodium 141 135 - 145 mmol/L Potassium, pl 3.7 3.3 - 4.9 mmol/L [facility] ([place]) Chloride 102 97 - 110 mmol/L [facility] ([place]) CO2 26 22 - 32 mmol/L [facility] ([place]) Anion gap 13 2 - 15 mmol/L [facility] ([place]) BUN 14 6 - 25 mg/dL [facility] ([place]) Creatinine 1.06 0.60 - 1.10 mg/dL [facility] ([place]) Glucose 98 70 - 199 mg/dL [facility] ([place]) Comment: Interpretive Data Fasting glucose >/= 126 [...] 2022. Calcium 8.8 8.5 - 10.3 mg/dL [facility] ([place]) Bilirubin, total 1.3(H) 0.1 - 1.2 mg/dL [facility] ([place]) Protein, pl 6.5 6.5 - 8.5 g/dL [facility] ([place]) Albumin 3.0(L) 3.5 - 5.0 g/dL [facility] ([place]) Alk phos 71 40 - 130 Units/L [facility] ([place]) ALT 20 7 - 45 Units/L [facility] ([place]) AST 42 10 - 45 Units/L [facility] ([place]) Blood 07/20/2025 3:44 AM CDT 07/20/2025 4:38 AM CDT us Jennifer Abreu MD LAB BLOOD ORDERABLES Fi nal Result [facility] [place] [address] * eGFR (07/19/2025 3:58 AM CDT) eGFR 67 >=60 mL/min/1. 73 [...] interpretive data was last reviewed 2021. Blood 07/19/2025 3:58 AM CDT 07/19/2025 4:42 AM CDT us Jennifer Abreu MD LAB BLOOD ORDERABLES Fi nal Result [facility] ([place]) [facility] [place] [address] * (ABNORMAL) CBC without differential (07/19/2025 3:58 AM CDT) WBC 4.43 3.80 - 9.90 K/cumm Hgb 13.0 11.9 - 15.5 g/dL [facility] ([place]) Hct 38.9 35.6 - 45.5 % [facility] ([place]) Plt 272 150 - 400 K/cumm [facility] ([place]) MPV 10.3 9.1 - 12.3 fL [facility] ([place]) RBC 5.22(H) 3.90 - 5.20 M/cumm [facility] ([place]) MCV 74.5(L) 81.3 - 96.4 fL [facility] ([place]) MCH 24.9(L) 27.1 - 33.3 pg [facility] ([place]) MCHC 33.4 32.3 - 35.7 g/dL [facility] ([place]) RDW CV 24.3(H) 11.1 - 14.9 % [facility] ([place]) RDW SD 60.5(H) 35.7 - 48.1 fL [facility] ([place]) NRBC abs 0.00 0.00 - 0.01 K/cumm [facility] ([place]) Blood 07/19/2025 3:58 AM CDT 07/19/2025 4:42 AM CDT Zayra Mars MD LAB BLOOD ORDERABLES Karine dhaliwal Result [facility] ([place]) [facility] [place] [address] * (ABNORMAL) Comprehensive metabolic panel (07/19/2025 3:58 AM CDT) Sodium 140 135 - 145 mmol/L Potassium, pl 3.7 3.3 - 4.9 mmol/L [facility] ([place]) Chloride 102 97 - 110 mmol/L [facility] ([place]) CO2 26 22 - 32 mmol/L [facility] ([place]) Anion gap 12 2 - 15 mmol/L [facility] ([place]) BUN 13 6 - 25 mg/dL [facility] ([place]) Creatinine 0.91 0.60 - 1.10 mg/dL [facility] ([place]) Glucose 89 70 - 199 mg/dL [facility] ([place]) Comment: Interpretive Data Fasting glucose >/= 126 [...] 2022. Calcium 8.6 8.5 - 10.3 mg/dL [facility] ([place]) Bilirubin, total 1.6(H) 0.1 - 1.2 mg/dL [facility] ([place]) Protein, pl 6.5 6.5 - 8.5 g/dL [facility] ([place]) Albumin 3.0(L) 3.5 - 5.0 g/dL [facility] ([place]) Alk phos 77 40 - 130 Units/L [facility] ([place]) ALT 23 7 - 45 Units/L [facility] ([place]) AST 43 10 - 45 Units/L [facility] ([place]) Blood 07/19/2025 3:58 AM CDT 07/19/2025 4:42 AM CDT us Jennifer Abreu MD LAB BLOOD ORDERABLES Fi nal Result Performing Organization Address City/[facility]/ZIP Co de Phone Number [facility] ([place]) [facility] [place] [address] * eGFR (07/18/2025 6:40 AM CDT) eGFR 60 >=60 mL/min/1. 73 m2 Comment: Interpretive Data [...] interpretive data was last reviewed 2021. Blood 07/18/2025 6:40 AM CDT 07/18/2025 6:44 AM CDT us Jennifer Abreu MD LAB BLOOD ORDERABLES Fi nal Result Performing Organization Address City/[facility]/ZIP Co de Phone Number [facility] ([place]) [facility] [place] [address] * (ABNORMAL) CBC without differential (07/18/2025 6:40 AM CDT) WBC 3.87 3.80 - 9.90 K/cumm Hgb 12.4 11.9 - 15.5 g/dL [facility] ([place]) Hct 37.6 35.6 - 45.5 % [facility] ([place]) Plt 248 150 - 400 K/cumm [facility] ([place]) MPV 9.7 9.1 - 12.3 fL [facility] ([place]) RBC 4.96 3.90 - 5.20 M/cumm [facility] ([place]) MCV 75.8(L) 81.3 - 96.4 fL [facility] ([place]) MCH 25.0(L) 27.1 - 33.3 pg [facility] ([place]) MCHC 33.0 32.3 - 35.7 g/dL [facility] ([place]) RDW CV 23.9(H) 11.1 - 14.9 % [facility] ([place]) RDW SD 60.1(H) 35.7 - 48.1 fL [facility] ([place]) NRBC abs 0.00 0.00 - 0.01 K/cumm [facility] ([place]) Blood 07/18/2025 6:40 AM CDT 07/18/2025 6:44 AM CDT us Zayra Mars MD LAB BLOOD ORDERABLES Karine dhaliwal Result [facility] [place] [address] * (ABNORMAL) Comprehensive metabolic panel (07/18/2025 6:40 AM CDT) Sodium 139 135 - 145 mmol/L Potassium, pl 3.1(L) 3.3 - 4.9 mmol/L [facility] ([place] Chloride 102 97 - 110 mmol/L [facility] ([place]) CO2 27 22 - 32 mmol/L [facility] ([place] Anion gap 10 2 - 15 mmol/L [facility] ([place]) BUN 15 6 - 25 mg/dL [facility] ([place]) Creatinine 1.00 0.60 - 1.10 mg/dL [facility] ([place]) Glucose 104 70 - 199 mg/dL [facility] ([place]) Comment: Interpretive Data Fasting glucose >/= 126 [...] interpretive data was last revised 2022. Calcium 8.4(L) 8.5 - 10.3 mg/dL [facility] ([place]) Bilirubin, total 1.6(H) 0.1 - 1.2 mg/dL [facility] ([place]) Protein, pl 6.0(L) 6.5 - 8.5 g/dL [facility] ([place]) Albumin 2.8(L) 3.5 - 5.0 g/dL [facility] ([place]) Alk phos 73 40 - 130 Units/L [facility] ([place]) ALT 23 7 - 45 Units/L [facility] ([place]) AST 39 10 - 45 Units/L [facility] ([place]) Blood 07/18/2025 6:40 AM CDT 07/18/2025 6:44 AM CDT us Jennifer Abreu MD LAB BLOOD ORDERABLES Fi nal Result [facility] ([place]) [facility] Department of Laboratories [place], [place] [id number] * (ABNORMAL) eGFR (07/17/2025 4:17 AM CDT) eGFR 52(L) >=60 mL/min/1. 73 m2 Comment: Interpretive Data [...] interpretive data was last reviewed 2021. Blood 07/17/2025 4:17 AM CDT 07/17/2025 5:13 AM CDT us Jennifer Abreu MD LAB BLOOD ORDERABLES [facility] Result [facility] ([place]) [facility] [place] [address] * Differential, auto (07/17/2025 4:17 AM CDT) Neutrophil abs 2.23 1.50 - 6.50 K/cumm Imm gran abs 0.02 0.00 - 0.10 K/cumm [facility] ([place]) Lymphocyte abs 1.19 0.80 - 3.30 K/cumm [facility] ([place]) Monocyte abs 0.42 0.20 - 0.80 K/cumm [facility] ([place]) Eosinophil abs 0.03 0.00 - 0.50 K/cumm [facility] ([place]) Basophil abs 0.02 0.00 - 0.10 K/cumm [facility] ([place]) Neutrophil pct 57.1 % [facility] ([place]) Comment: Interpretive Data Percent cell count reference ranges are not reported, since discordance with absolute values may lead to misinterpretation of CBC data. Current Interpretive Data was last revised on 2018. Imm gran pct 0.5 % [facility] ([place]) Comment: Interpretive Data Percent cell count reference ranges are not reported, since discordance with absolute values may lead to misinterpretation of CBC data. Current Interpretive Data was last revised on 2018. Lymphocyte pct 30.4 % [facility] ([place]) Comment: Interpretive Data Percent cell count reference ranges are not reported, since discordance with absolute values may lead to misinterpretation of CBC data. Current Interpretive Data was last revised on 2018. Monocyte pct 10.7 % [facility] ([place]) Comment: Interpretive Data Percent cell count reference ranges are not reported, since discordance with absolute values may lead to misinterpretation of CBC data. Current Interpretive Data was last revised on 2018. Eosinophil pct 0.8 % [facility] ([place]) Comment: Interpretive Data Percent cell count reference ranges are not reported, since discordance with absolute values may lead to misinterpretation of CBC data. Current Interpretive Data was last revised on 2018. Basophil pct 0.5 % [facility] ([place]) Comment: Interpretive Data Percent cell count reference ranges are not reported, since discordance with absolute values may lead to misinterpretation of CBC data. Current Interpretive Data was last revised on 2018. Blood 07/17/2025 4:17 AM CDT 07/17/2025 5:13 AM CDT us Jennifer Abreu MD LAB BLOOD ORDERABLES Fi nal Result [facility] ([place]) [facility] Department [place] [address] * (ABNORMAL) CBC with auto differential (07/17/2025 4:17 AM CDT) WBC 3.91 3.80 - 9.90 K/cumm Hgb 11.0(L) 11.9 - 15.5 g/dL [facility] ([place]) Hct 33.8(L) 35.6 - 45.5 % [facility] ([place]) Plt 197 150 - 400 K/cumm [facility] ([place]) MPV Not Measured 9.1 - 12.3 fL [facility] ([place]) RBC 4.41 3.90 - 5.20 M/cumm [facility] MCV 76.6(L) 81.3 - 96.4 fL [facility] ([place]) MCH 24.9(L) 27.1 - 33.3 pg [facility] ([place]) MCHC 32.5 32.3 - 35.7 g/dL [facility] ([place]) RDW CV 23.6(H) 11.1 - 14.9 % [facility] ([place] RDW SD 60.7(H) 35.7 - 48.1 fL [facility] ([place]) NRBC abs 0.00 0.00 - 0.01 K/cumm [facility] ([place]) Blood 07/17/2025 4:17 AM CDT 07/17/2025 5:13 AM CDT us Jennifer Abreu MD LAB BLOOD ORDERABLES [facility] Result [facility] [place] [address] * (ABNORMAL) Comprehensive metabolic panel (07/17/2025 4:17 AM CDT) Sodium 140 135 - 145 mmol/L Potassium, pl 3.5 3.3 - 4.9 mmol/L [facility] ([place]) Chloride 103 97 - 110 mmol/L [facility] ([place]) CO2 21(L) 22 - 32 mmol/L [facility] ([place] Anion gap 16(H) 2 - 15 mmol/L [facility] ([place] BUN 18 6 - 25 mg/dL [facility] ([place]) Creatinine 1.12(H) 0.60 - 1.10 mg/dL [facility] ([place]) Glucose 71 70 - 199 mg/dL [facility] ([place]) Comment: Interpretive Data Fasting glucose >/= 126 [...] 2022. Calcium 9.4 8.5 - 10.3 mg/dL [facility] ([place]) Bilirubin, total 1.7(H) 0.1 - 1.2 mg/dL [facility] ([place]) Protein, pl 7.5 6.5 - 8.5 g/dL [facility] ([place]) Albumin 3.6 3.5 - 5.0 g/dL [facility] ([place]) Alk phos 85 40 - 130 Units/L [facility] ([place]) ALT 31 7 - 45 Units/L [facility] ([place]) AST 54(H) 10 - 45 Units/L [facility] ([place]) Blood 07/17/2025 4:17 AM CDT 07/17/2025 5:13 AM CDT us Jennifer Abreu MD LAB BLOOD ORDERABLES Fi nal Result [facility] ([place]) [facility] [place] [address] * (ABNORMAL) POCT glucose (07/16/2025 8:27 AM CDT) Glucose, POC 60(L) 70 - 199 mg/dL Blood 07/16/2025 8:27 AM CDT 07/16/2025 8:27 AM CDT us Zayra Mars MD LAB POCT ORDERABLES - DEV ICE Final Result [facility] ([place]) [address] [facility] [place] [address] * (ABNORMAL) eGFR (07/16/2025 5:29 AM CDT) eGFR 52(L) >=60 mL/min/1. 73 m2 Comment: Interpretive Data [...] interpretive data was last reviewed 2021. Blood 07/16/2025 5:29 AM CDT 07/16/2025 5:48 AM CDT us Jennifer Abreu MD LAB BLOOD ORDERABLES Fi nal Result [facility] ([place]) [facility] [place] [address] * Differential, auto (07/16/2025 5:29 AM CDT) Neutrophil abs 2.45 1.50 - 6.50 K/cumm Imm gran abs 0.02 0.00 - 0.10 K/cumm [facility] ([place]) Lymphocyte abs 1.24 0.80 - 3.30 K/cumm [facility] ([place]) Monocyte abs 0.40 0.20 - 0.80 K/cumm [facility] ([place]) Eosinophil abs 0.03 0.00 - 0.50 K/cumm [facility] ([place]) Basophil abs 0.02 0.00 - 0.10 K/cumm [facility] ([place]) Neutrophil pct 58.9 % [facility] ([place]) Comment: Interpretive Data Percent cell count reference ranges are not reported, since discordance with absolute values may lead to misinterpretation of CBC data. Current Interpretive Data was last revised on 2018. Imm gran pct 0.5 % [facility] ([place]) Comment: Interpretive Data Percent cell count reference ranges are not reported, since discordance with absolute values may lead to misinterpretation of CBC data. Current Interpretive Data was last revised on 2018. Lymphocyte pct 29.8 % [facility] ([place]) Comment: Interpretive Data Percent cell count reference ranges are not reported, since discordance with absolute values may lead to misinterpretation of CBC data. Current Interpretive Data was last revised on 2018. Monocyte pct 9.6 % [facility] ([place]) Comment: Interpretive Data Percent cell count reference ranges are not reported, since discordance with absolute values may lead to misinterpretation of CBC data. Current Interpretive Data was last revised on 2018. Eosinophil pct 0.7 % [facility] ([place]) Comment: Interpretive Data Percent cell count reference ranges are not reported, since discordance with absolute values may lead to misinterpretation of CBC data. Current Interpretive Data was last revised on 2018. Basophil pct 0.5 % [facility] ([place]) Comment: Interpretive Data Percent cell count reference ranges are not reported, since discordance with absolute values may lead to misinterpretation of CBC data. Current Interpretive Data was last revised on 2018. Blood 07/16/2025 5:29 AM CDT 07/16/2025 5:48 AM CDT us Dionne Nava MD LAB BLOOD ORDERABLES Final Resul t [facility] ([place]) [facility] [place] [address] * (ABNORMAL) CBC with auto differential (07/16/2025 5:29 AM CDT) WBC 4.16 3.80 - 9.90 K/cumm Hgb 10.7(L) 11.9 - 15.5 g/dL [facility] ([place]) Hct 32.8(L) 35.6 - 45.5 % [facility] ([place]) Plt 192 150 - 400 K/cumm [facility] ([place]) MPV 9.9 9.1 - 12.3 fL [facility] ([place]) RBC 4.22 3.90 - 5.20 M/cumm [facility] ([place]) MCV 77.7(L) 81.3 - 96.4 fL [facility] ([place]) MCH 25.4(L) 27.1 - 33.3 pg [facility] ([place]) MCHC 32.6 32.3 - 35.7 g/dL [facility] ([place]) RDW CV 23.7(H) 11.1 - 14.9 % [facility] ([place]) RDW SD 62.1(H) 35.7 - 48.1 fL [facility] ([place]) NRBC abs 0.00 0.00 - 0.01 K/cumm [facility] ([place]) Blood 07/16/2025 5:29 AM CDT 07/16/2025 5:48 AM CDT us Dionne Nava MD LAB BLOOD ORDERABLES Final Resul t [facility] ([place]) [facility] [place] [address] * Magnesium (07/16/2025 5:29 AM CDT) Magnesium 1.9 1.4 - 2.5 mg/dL Blood 07/16/2025 5:29 AM CDT 07/16/2025 5:48 AM CDT us Jennifer Abreu MD LAB BLOOD ORDERABLES Fi nal Result [facility] ([place]) [address] [facility] [place] [address] * (ABNORMAL) Hemoglobin A1c (07/16/2025 5:29 AM CDT) Hgb A1C 6.2(H) 4.0 - 5.6 % Estimated Average Glucose 131 mg/dL [facility] ([place]) Comment: The ADA recommends reporting an estimated Average Glucose (eAG) with all Hemoglobin A1c results using the equation derived from a study of 507 normal and diabetic adults. Minority populations were underrepresented and children were not included. (Diabetes Care 31:8020-8175, 2008). The eAG is not equivalent to a fasting glucose. Blood 07/16/2025 5:29 AM CDT 07/16/2025 5:48 AM CDT us Jennifer Abreu MD LAB BLOOD ORDERABLES nal Result [facility] ([place]) [facility] [place] [address] * (ABNORMAL) Comprehensive metabolic panel (07/16/2025 5:29 AM CDT) Sodium 140 135 - 145 mmol/L Potassium, pl 3.8 3.3 - 4.9 mmol/L [facility] ([place]) Chloride 104 97 - 110 mmol/L [facility] ([place]) CO2 22 22 - 32 mmol/L [facility] ([place]) Anion gap 14 2 - 15 mmol/L [facility] ([place]) BUN 17 6 - 25 mg/dL [facility] ([place]) Creatinine 1.13(H) 0.60 - 1.10 mg/dL [facility] ([place]) Glucose 79 70 - 199 mg/dL [facility] ([place]) Comment: Interpretive Data Fasting glucose >/= 126 [...] 2022. Calcium 9.3 8.5 - 10.3 mg/dL [facility] ([place]) Bilirubin, total 2.0(H) 0.1 - 1.2 mg/dL [facility] ([place]) Protein, pl 7.5 6.5 - 8.5 g/dL [facility] ([place]) Albumin 3.7 3.5 - 5.0 g/dL [facility] ([place]) Alk phos 81 40 - 130 Units/L [facility] ([place]) ALT 33 7 - 45 Units/L [facility] ([place]) AST 57(H) 10 - 45 Units/L [facility] ([place]) Blood 07/16/2025 5:29 AM CDT 07/16/2025 5:48 AM CDT us Jennifer Abreu MD LAB BLOOD ORDERABLES Fi nal Result [facility] ([place]) [facility] [place] [address] * POCT glucose (07/16/2025 3:43 AM CDT) Glucose, POC 73 70 - 199 mg/dL Blood 07/16/2025 3:43 AM CDT 07/16/2025 3:43 AM CDT us Zayra Mars MD LAB POCT ORDERABLES - DEV ICE Final Result Performing Organization Address City/[facility]/ZIP Co de Phone Number [facility] ([place]) [address] [place] [address] [place] [address] * (ABNORMAL) Urinalysis reflex to microscopic and culture Urine (07/15/2025 6:22 PM CDT) Color, ur Yellow Yellow Clarity, ur Turbid(A) Clear [facility] ([place]) Specific gravity, ur 1.021 1.003 - 1.030 [facility] ([place]) pH, urine 5.0 [facility] ([place]) Comment: Interpretive Data U rine pH is affected by diet, medications, systemic acid-base disturbances, and renal tubular function. pH may affect urinary stone formation. For example, urine pH below 6.0 may help reduce the tendency for calcium phosphate stones and pH greater than 6.0 may reduce the tendency for uric acid stone formation. Source: [facility] [place] Current Interpretive Data was last revised on 2017 Protein, ur ql Trace Negative [facility] ([place]) Glucose, ur ql Negative Negative [facility] ([place]) Ketones, ur Negative Negative [facility] ([place]) Bilirubin, ur Negative Negative [facility] ([place]) Blood, ur 1+(A) Negative [facility] ([place]) Urobilinogen, ur <2.0 <2.0 mg/dL [facility] ([place]) Nitrite, ur Negative Negative [facility] ([place]) Leukocyte esterase, ur 2+(A) Negative [facility] ([place]) UA reflex comment Reflex to microscopic UA will be performed. [facility] ([place]) Urine 07/15/2025 6:22 PM CDT 07/15/2025 6:28 PM CDT us Jennifer Abreu MD LAB MICROBIOLOGY - GENE RAL ORDERABLES Final Result [facility] ([place]) [facility] [place] [address] * (ABNORMAL) Urinalysis, microscopic only (07/15/2025 6:22 PM CDT) WBC, ur 0-5 0 - 5 /HPF RBC, ur 0-2 0 - 2 /HPF [facility] ([place]) Epithelial cells, squamous, ur 1-5 0 - 5 /HPF [facility] ([place]) Bacteria, ur 1+(A) [facility] ([place]) Mucous, ur Present(A) [facility] ([place]) Hyaline casts, ur 6-10 0 - 10 /LPF [facility] ([place]) Urine 07/15/2025 6:22 PM CDT 07/15/2025 6:28 PM CDT Jennifer Abreu MD LAB URINE ORDERABLES Fi nal Result [facility] ([place]) [facility] [place] [address] * (ABNORMAL) Urine culture Urine, bladder (07/15/2025 6:22 PM CDT) Report Final Report: Greater than or equal to 100,000 colonies/mL of Escherichia coli (.) Comment:Testing performed by : [facility], [address] [place] [address] Organism ESCHERICHIA COLI [facility] ([place]) Urine, bladder 07/15/2025 6: 22 PM CDT 07/15/2025 8:23 PM CDT Narrative RADHA RUBALCAVA ([place]) - 07/18/2025 6:23 AM CDT Indications for Culture:->Other (specify) Other Indication:->AMS Testing performed by [facility] ([phone]) Organism Antibiotic Method Susceptibility Escherichia coli Ampicillin INTERPRETATION Resistant Escherichia coli Cefazolin INTERPRETATION Susceptible Escherichia coli Nitrofurantoin INTERPRETATION Susceptible Escherichia coli Gentamicin INTERPRETATION Susceptible Escherichia coli Trimethoprim with Sulfamethoxazole IN TERPRETATION Susceptible Escherichia coli Meropenem INTERPRETATION Susceptible Escherichia coli Cefepime INTERPRETATION Susceptible Escherichia coli Ciprofloxacin INTERPRETATION Susceptible Escherichia coli Ceftazidime INTERPRETATION Susceptible Escherichia coli Ceftriaxone INTERPRETATION Susceptible Escherichia coli Piperacillin/Tazobactam INTERPRETATIO N Susceptible Escherichia coli Cephalexin INTERPRETATION Susceptible Escherichia coli Cefuroxime-axetil INTERPRETATION Susceptible Escherichia coli Cefdinir INTERPRETATION Susceptible Zayra Mars MD LAB MICROBIOLOGY - GENERA L ORDERABLES Final Result RADHA RUBALCAVA ([place]) [address] [facility] Department [place] [address] * TRANSTHORACIC ECHO (TTE) COMPLETE W DOPPLER/CF W CONTRAST (07/15/2025 4:00 PM CDT) EF Mod BP 19 % CONS SCIMAGE Anatomical Region Laterality Modality Ultrasound 07/15/2025 3:32 PM CDT Narrative 07/15/2025 5:03 PM CDT [address] [place] [address] Echocardiogram Report Patient Name: RYLEE YORK : 1950 Study Date: 07/15/2025 3:32:02 PM Sex: F Tech: Location: [address] Provider: ZAYRA MARS Height(Cm): BSA: Weight(Kg): Quality: Definity contrast agent used to enhance endocardial border definition Order Provider: ZAYRA MARS PROCEDURES: Echocardiographic Report: Transthoracic echocardiogram with complete 2D, M-Mode, color Doppler examination and contrast. INDICATIONS: hf. MEASUREMENTS: 2D/MM Value Range Doppler Value Range EF Teich MM 18.9 % [ 54.0 - 74.0 ] FAZAL Vmax 1.34 cm2 EF Mod BP 19 % [ 54 - 74 ] AV Mean PG 3 mmHg LVIDd MM 4.95 cm [ 3.80 - 5.20 ] AV Peak Yobani 1.17 m/s [ 1.00 - 1.70 ] LVIDs MM 4.52 cm [ 2.20 - 3.50 ] AV VTI 20.89 cm LVPWd MM 1.14 cm [ 0.60 - 0.90 ] LVOT Diam 2.04 cm IVSd MM 1.17 cm [ 0.60 - 0.90 ] LVOT Peak Yobani 0.48 m/s [ 0.70 - 1.10 ] LA Dimension MM 3.06 cm [ 2.70 - 3.80 ] LVOT VTI 8.81 cm AoR Diam MM 2.73 cm [ 2.70 - 3.30 ] MV E Peak Yobani 0.88 m/s [ 0.60 - 1.30 ] ACS MM 1.86 cm MV A Peak Yobani 0.30 m/s [ 1.00 - 1.20 ] MV Mean PG 3 mmHg MV PHT 55 msec [ 20 - 100 ] MVA 4.00 MV Decel Time 188 msec [ 104 - 258 ] PV Peak Yobani 0.69 m/s [ 0.40 - 0.80 ] DE Peak Yobani 0.89 m/s TR Peak Yobani 3.04 m/s [ 1.00 - 2.80 ] TR Peak PG 37 mmHg RVSP 52.00 mmHg [ 10.00 - 36.00 ] E` 0.06 m/s E/E` 15.46 [ <= 10.00 ] PA Pressure 52.00 mmHg [ 10.00 - 36.00 ] 2D/MM Value Range Doppler Value Range - FINDINGS: Atrial Septum: Normal atrial septum. Left Ventricle: Normal left ventricular size. Optison contrast agent used to visually enhance endocardial wall motion and contractility. Mild concentric left ventricular hypertrophy. Severe global left ventricular systolic dysfunction. Diastolic dysfunction is present. Ejection fraction is measured at 19 %. There is global hypokinesis involving all segments of the LV. Left Atrium: The left atrium is normal in size. Right Ventricle: Normal right ventricular size. Normal right ventricular systolic function. Right Atrium: The right atrium is normal in size. Aortic Valve: Aortic cusps appear moderately calcified. Trace to mild aortic valve regurgitation. Mitral Valve: Mild mitral annular calcification. Mild mitral valve regurgitation. Pulmonic Valve: Normal structure of the pulmonic valve. Tricuspid Valve: Normal structure of the tricuspid valve. Moderate pulmonary hypertension based on right ventricular systolic pressure. Estimated peak RVSP is 52 mmHg. Mild tricuspid regurgitation. Pericardium: Normal pericardium with no significant pericardial effusion. Aorta: Normal aortic root. Sinus of Valsalva is normal. Aortic arch is normal. Descending aorta is normal. IVC: Dilated IVC without respiratory collapse consistent with elevated right atrial pressure (>15 mmHg). Pulmonary Artery: Normal pulmonary artery size. CONCLUSIONS: Normal left ventricular size. Optison contrast agent used to visually enhance endocardial wall motion and contractility. Mild concentric left ventricular hypertrophy. Severe global left ventricular systolic dysfunction. Diastolic dysfunction is present. Ejection fraction is measured at 19 %. There is global hypokinesis involving all segments of the LV. Mild mitral annular calcification. Mild mitral valve regurgitation. Aortic cusps appear moderately calcified. Trace to mild aortic valve regurgitation. Normal structure of the tricuspid valve. Moderate pulmonary hypertension based on right ventricular systolic pressure. Estimated peak RVSP is 52 mmHg. Mild tricuspid regurgitation. Dilated IVC without respiratory collapse consistent with elevated right atrial pressure (>15 mmHg). Atrial fibrillation. Electronically Signed By: Ronaldo Cartwright MD, [facility] 07/15/2025 5:03:22 PM CDT Procedure Note Ronaldo Cartwright MD - 07/15/[address] [address] Echocardiogram Report Patient Name: RYLEE YORK : 1950 Study Date: 07/15/2025 3:32:02 PM Sex: F Tech: Location: [id number] Ref Provider: ZAYRA MARS Height(Cm): BSA: Weight(Kg): Quality: Definity contrast agent used to enhance endocardial borderdefinition Order Provider: ZAYRA MARS PROCEDURES: Echocardiographic Report: Transthoracic echocardiogram with complete 2D, M-Mode, color Dopplerexamination and contrast. INDICATIONS: hf. MEASUREMENTS: 2D/MM Value Range Doppler ValueRange EF Teich MM 18.9 % [ 54.0 - 74.0 ] FAZAL Vmax 1.34cm2 EF Mod BP 19 % [ 54 - 74 ] AV Mean PG 3 mmHg LVIDd MM 4.95 cm [ 3.80 - 5.20 ] AV Peak Yobani 1.17 m/s[ 1.00 - 1.70 ] LVIDs MM 4.52 cm [ 2.20 - 3.50 ] AV VTI 20.89cm LVPWd MM 1.14 cm [ 0.60 - 0.90 ] LVOT Diam 2.04cm IVSd MM 1.17 cm [ 0.60 - 0.90 ] LVOT Peak Yobani 0.48 m/s[ 0.70 - 1.10 ] LA Dimension MM 3.06 cm [ 2.70 - 3.80 ] LVOT VTI 8.81cm AoR Diam MM 2.73 cm [ 2.70 - 3.30 ] MV E Peak Yobani 0.88 m/s[ 0.60 - 1.30 ] ACS MM 1.86 cm MV A Peak Yobani 0.30 m/s[ 1.00 - 1.20 ] MV Mean PG 3 mmHg MV PHT 55 msec [ 20 - 100 ] MVA 4.00 MV Decel Time 188 msec [ 104 - 258 ] PV Peak Yobani 0.69 m/s [ 0.40 - 0.80 ] DE Peak Yobani 0.89 m/s TR Peak Yobani 3.04 m/s [ 1.00 - 2.80 ] TR Peak PG 37 mmHg RVSP 52.00 mmHg [ 10.00 - 36.00 ] E` 0.06 m/s E/E` 15.46 [ <= 10.00 ] PA Pressure 52.00 mmHg [ 10.00 - 36.00 ] 2D/MM Value Range Doppler ValueRange - FINDINGS: Atrial Septum: Normal atrial septum. Left Ventricle: Normal left ventricular size. Optison contrast agent used to visuallyenhance endocardial wall motion and contractility. Mild concentric left ventricularhypertrophy. Severe global left ventricular systolic dysfunction. Diastolic dysfunction ispresent. Ejection fraction is measured at 19 %. There is global hypokinesis involving allsegments of the LV. Left Atrium: The left atrium is normal in size. Right Ventricle: Normal right ventricular size. Normal right ventricular systolicfunction. Right Atrium: The right atrium is normal in size. Aortic Valve: Aortic cusps appear moderately calcified. Trace to mild aortic valveregurgitation. Mitral Valve: Mild mitral annular calcification. Mild mitral valve regurgitation. Pulmonic Valve: Normal structure of the pulmonic valve. Tricuspid Valve: Normal structure of the tricuspid valve. Moderate pulmonary hypertensionbased on right ventricular systolic pressure. Estimated peak RVSP is 52 mmHg. Mildtricuspid regurgitation. Pericardium: Normal pericardium with no significant pericardial effusion. Aorta: Normal aortic root. Sinus of Valsalva is normal. Aortic arch is normal.Descending aorta is normal. IVC: Dilated IVC without respiratory collapse consistent with elevated rightatrial pressure (>15 mmHg). Pulmonary Artery: Normal pulmonary artery size. CONCLUSIONS: Normal left ventricular size. Optison contrast agent used to visuallyenhance endocardial wall motion and contractility. Mild concentric left ventricularhypertrophy. Severe global left ventricular systolic dysfunction. Diastolic dysfunction ispresent. Ejection fraction is measured at 19 %. There is global hypokinesis involving allsegments of the LV. Mild mitral annular calcification. Mild mitral valve regurgitation. Aortic cusps appear moderately calcified. Trace to mild aortic valveregurgitation. Normal structure of the tricuspid valve. Moderate pulmonary hypertensionbased on right ventricular systolic pressure. Estimated peak RVSP is 52 mmHg. Mildtricuspid regurgitation. Dilated IVC without respiratory collapse consistent with elevated rightatrial pressure (>15 mmHg). Atrial fibrillation. Electronically Signed By: Ronaldo Cartwright MD, [facility] 07/15/2025 5:03:22 PM CDT Zayra Mars MD CV ECHO PROCEDURES Final Result * US Vein Duplex Lower Extremity Bilateral Complete (07/15/2025 3:15 PM CDT) Anatomical Region Laterality Modality Vascular Bilateral Ultrasound 07/15/2025 3:28 PM CDT Impressions 07/15/2025 3:28 PM CDT No evidence of lower extremity deep venous thrombosis bilaterally although the calf veins could not be assessed. Electronically signed by: Tej Bee M.D. Narrative 07/15/2025 3:28 PM CDT EXAM DESCRIPTION: Bilateral lower extremity duplex ultrasound. REASON FOR STUDY: Bilateral lower leg swelling for 2 months. TECHNIQUE: Duplex scan using the B-mode, spectral Doppler, and color-flow Doppler of the deep venous system of the bilateral lower extremity was performed. Images stored on PACS. COMPARISON: None. FINDINGS: The common femoral, common femoral-saphenous vein confluence, visualized profunda femoral, superficial femoral , and bilateral popliteal veins are readily compressible with no intraluminal thrombus on jimenez scale images. Lower extremity veins could not be assessed due to bandages. There is normal color and spectral Doppler signal, including augmentation. Greater saphenous vein appears patent. Procedure Note Tej Bee MD - 07/15/2025 EXAM DESCRIPTION: Bilateral lower extremity duplex ultrasound. REASON FOR STUDY: Bilateral lower leg swelling for 2 months. TECHNIQUE: Duplex scan using the B-mode, spectral Doppler, and color-flow Doppler of the deep venous system of the bilateral lower extremity was performed. Images stored on PACS. COMPARISON: None. FINDINGS: The common femoral, common femoral-saphenous vein confluence, visualized profunda femoral, superficial femoral , and bilateral popliteal veins are readily compressible with no intraluminal thrombus on jimenez scale images. Lower extremity veins could not be assessed due to bandages. There is normal color and spectral Doppler signal, including augmentation. Greater saphenous vein appears patent. IMPRESSION: No evidence of lower extremity deep venous thrombosis bilaterally although the calf veins could not be assessed. Electronically signed by: Tej Bee M.D. us Jennifer Abreu MD IMG US PROCEDURES Final Result * US Breast Right Complete (07/15/2025 2:23 PM CDT) Anatomical Region Laterality Modality Breast Right Ultrasound 07/15/2025 2:48 PM CDT Impressions 07/15/2025 2:48 PM CDT There is parenchymal edema and skin thickening involving both breasts. This was seen also on the chest CT performed 07/15/2025. This most likely is related to a systemic disease, such as congestive heart failure or renal disease, or fluid overload. Correlate clinically. There is no mammographic or sonographic evidence of malignancy. A bilateral screening mammogram is recommended in one year. The results were discussed with the patient. OVERALL FINAL ASSESSMENT: BI-RADS Category 2: Benign. RECOMMENDATION: Annual screening mammography is recommended. Electronically signed by: Leena Clifton M.D. Narrative 07/15/2025 2:48 PM CDT EXAMINATION: BILATERAL DIGITAL DIAGNOSTIC MAMMOGRAM INCLUDING CAD AND BILATERAL DIGITAL BREAST TOMOSYNTHESIS HISTORY: Swelling and tenderness in the right breast. COMPARISON: None TECHNIQUE: Full field digital mammographic views of BOTH breasts were performed, including computer aided detection (CAD) and BILATERAL digital breast tomosynthesis (DBT). BREAST PARENCHYMAL COMPOSITION: There are scattered areas of fibroglandular density. MAMMOGRAM FINDINGS: There is interstitial thickening and parenchymal edema of both breasts, more pronounced on the right. There is diffuse skin thickening, more pronounced on the right. No suspicious masses aspirations are seen in either breast. Further evaluation was obtained with sonography. Complete right breast ultrasound: Complete sonographic evaluation of the right breast was performed. There is diffuse breast edema and skin thickening. No fluid collections are seen to suggest abscess formation. us Jennifer Abreu MD IMG MAMMO PROCEDURES Fi nal Result * Diagnostic Mammogram Bilateral W Andrea (07/15/2025 1:26 PM CDT) Anatomical Region Laterality Modality Breast Bilateral Mammography 07/15/2025 2:48 PM CDT Impressions 07/15/2025 2:48 PM CDT There is parenchymal edema and skin thickening involving both breasts. This was seen also on the chest CT performed 07/15/2025. This most likely is related to a systemic disease, such as congestive heart failure or renal disease, or fluid overload. Correlate clinically. There is no mammographic or sonographic evidence of malignancy. A bilateral screening mammogram is recommended in one year. The results were discussed with the patient. OVERALL FINAL ASSESSMENT: BI-RADS Category 2: Benign. RECOMMENDATION: Annual screening mammography is recommended. Electronically signed by: Nadege Garvey 07/15/2025 2:48 PM CDT EXAMINATION: BILATERAL DIGITAL DIAGNOSTIC MAMMOGRAM INCLUDING CAD AND BILATERAL DIGITAL BREAST TOMOSYNTHESIS HISTORY: Swelling and tenderness in the right breast. COMPARISON: None TECHNIQUE: Full field digital mammographic views of BOTH breasts were performed, including computer aided detection (CAD) and BILATERAL digital breast tomosynthesis (DBT). BREAST PARENCHYMAL COMPOSITION: There are scattered areas of fibroglandular density. MAMMOGRAM FINDINGS: There is interstitial thickening and parenchymal edema of both breasts, more pronounced on the right. There is diffuse skin thickening, more pronounced on the right. No suspicious masses aspirations are seen in either breast. Further evaluation was obtained with sonography. Complete right breast ultrasound: Complete sonographic evaluation of the right breast was performed. There is diffuse breast edema and skin thickening. No fluid collections are seen to suggest abscess formation. us Zayra Mars MD IMG MAMMO PROCEDURES Karine l Result * (ABNORMAL) Troponin T high-sensitivity 6-hour (07/15/2025 10:38 AM CDT) Trop T hs 41(H) <=14 ng/L Comment: Interpretive Data For further hscTnT resources including the diagnostic algorithm and an aid in interpretation, copy and paste this link: https://nrl.testcatalog.org/show/hsTrop Current Interpretive Data last revised 2020. Trop T hs delta 3 ng/L [facility] ([place]) Trop T hs interp Insignificant [facility] ([place]) Blood 07/15/2025 10:3 8 AM CDT 07/15/2025 11:15 AM CDT us Jennifer Abreu MD LAB BLOOD ORDERABLES Fi nal Result Performing Organization Address [facility] Co de Phone Number [facility] ([place]) [address] [facility] [place] [address] * (ABNORMAL) Blood smear review (07/15/2025 10:38 AM CDT) RBC morphology Consistent with RBC Indicies Hypochromasia 3-7/HPF(A) [facility] ([place]) Anisocytosis Slight(A) [facility] ([place]) Microcytes 3-7/HPF(A) [facility] ([place]) Target cells 8-15/HPF(A) [facility] ([place]) Echinocytes 3-7/HPF(A) [facility] ([place]) Teardrop cells 3-7/HPF(A) [facility] ([place]) Platelet estimate Adequate CE [facility] ([place]) Blood 07/15/2025 10:3 8 AM CDT 07/15/2025 11:15 AM CDT us Zayra Mars MD LAB BLOOD ORDERABLES Karine l Result Performing Organization Address City/[facility]/ZIP Co de Phone Number [facility] ([place]) [address] [facility] [place] [address] * eGFR (07/15/2025 10:38 AM CDT) eGFR 67 >=60 mL/min/1. 73 [...] interpretive data was last reviewed 2021. Blood 07/15/2025 10:3 8 AM CDT 07/15/2025 11:15 AM CDT us Zayra Mars MD LAB BLOOD ORDERABLES Karine dhaliwal Result [facility]) [address] [facility] [place] [address] * (ABNORMAL) CBC without differential (07/15/2025 10:38 AM CDT) WBC 4.38 3.80 - 9.90 K/cumm Hgb 10.8(L) 11.9 - 15.5 g/dL [facility] Hct 34.0(L) 35.6 - 45.5 % [facility] ([place]) Plt 151 150 - 400 K/cumm [facility] ([place]) MPV Not Measured 9.1 - 12.3 fL [facility] ([place]) RBC 4.38 3.90 - 5.20 M/cumm [facility] MCV 77.6(L) 81.3 - 96.4 fL [facility] ([place] MCH 24.7(L) 27.1 - 33.3 pg [facility] MCHC 31.8(L) 32.3 - 35.7 g/dL [facility] RDW CV 23.8(H) 11.1 - 14.9 % [facility] RDW SD 61.6(H) 35.7 - 48.1 fL [facility] NRBC abs 0.00 0.00 - 0.01 K/cumm [facility] ([place]) Blood 07/15/2025 10:3 8 AM CDT 07/15/2025 11:15 AM CDT us Zayra Mars MD LAB BLOOD ORDERABLES Karine dhaliwal Result [facility] ([place]) [address] [facility] [place] [address] * (ABNORMAL) Basic metabolic panel (07/15/2025 10:38 AM CDT) Sodium 140 135 - 145 mmol/L Potassium, pl 3.6 3.3 - 4.9 mmol/L [facility] ([place]) Chloride 104 97 - 110 mmol/L [facility] ([place]) CO2 24 22 - 32 mmol/L [facility] ([place]) Anion gap 12 2 - 15 mmol/L [facility] BUN 12 6 - 25 mg/dL [facility] ([place]) Creatinine 0.91 0.60 - 1.10 mg/dL [facility] Glucose 64(L) 70 - 199 mg/dL [facility] ([place]) Comment: Interpretive Data Fasting glucose >/= 126 [...] interpretive data was last revised 2022. Calcium 9.1 8.5 - 10.3 mg/dL [facility] ([place]) Blood 07/15/2025 10:3 8 AM CDT 07/15/2025 11:15 AM CDT us Zayra Mars MD LAB BLOOD ORDERABLES Karine l Result Performing Organization Address [facility] Co de Phone Number [facility] ([place]) [address] [facility] [place] [address] * (ABNORMAL) Troponin T high-sensitivity 2-hour (07/15/2025 6:31 AM CDT) Trop T hs 41(H) <=14 ng/L Comment: Interpretive Data For further hscTnT resources including the diagnostic algorithm and an aid in interpretation, copy and paste this link: https://nrl.testcatalog.org/show/hsTrop Current Interpretive Data last revised 2020. Trop T hs delta 3 ng/L [facility] ([place]) Trop T hs interp Insignificant [facility] ([place]) Blood 07/15/2025 6:31 AM CDT 07/15/2025 6:35 AM CDT us Jennifer Abreu MD LAB BLOOD ORDERABLES Fi nal Result Performing Organization Address [facility]/ZIP Co de Phone Number [facility] [place] ([place]) [address] [facility] [place] [address] * (ABNORMAL) Troponin T high-sensitivity series (baseline, 2hr, 4hr, 6hr) (07/15/2025 4:19 AM CDT) Trop T hs 38(H) <=14 ng/L Comment: Interpretive Data For further hscTnT resources including the diagnostic algorithm and an aid in interpretation, copy and paste this link: https://nrl.testcatalog.org/show/hsTrop Current Interpretive Data last revised 2020. Blood 07/15/2025 4:19 AM CDT 07/15/2025 4:23 AM CDT us Jennifer Abreu MD LAB BLOOD ORDERABLES Fi nal Result [facility] ([place]) [address] [facility] [place] [address] * (ABNORMAL) Pro B-type natriuretic peptide (07/15/2025 4:19 AM CDT) NT-proBNP 2,055(H) <=300 pg/mL Comment: Interpretive Comments: A. Dyspnea in Acute Care Setting All Ages: < 300 pg/ml, acute heart failure unlikely. < 50 yrs: 300 - 450 pg/ml, further investigation warranted. > 450 pg/ml, acute heart failure likely. 50 - 74 yrs: 300 - 900 pg/ml, further investigation warranted. > 900 pg/ml, acute heart failure likely . > or = 75 yrs: 450 - 1800 pg/ml, further investigation warranted. > 1800 pg/ml, acute heart failure likely. B. Non-acute Setting < 75 yrs < 125 pg/ml, rules out heart failure. > or = 125 pg/ml, further investigation warranted. > or = 75 yrs < 450 pg/ml, rules out heart failure. > or = 450 pg/ml, further investigation warranted. - Knowledge of each individual patient's NT-proBNP range may be more useful than using similar cut-points for every patient. Please note that marked elevations in NT-proBNP levels may be observed in state other than Left Ventricular Congestive Failure, including: acute coronary syndromes, right heart strain/failure (including pulmonary embolism and cor pulmonale), critical illness, renal failure, as well as advanced age. - References: 1. Hamida MATA et.al. Eur Heart J. 2006:27:330-337. 2. Ced RW, Jim AM. J. AM Cornel Cardiol: Cardiovasc Imag. 2009;2: 216- 225. Interpretive Data Last Revised Date: 2018. Blood 07/15/2025 4:19 AM CDT 07/15/2025 4:23 AM CDT us Jennifer Woody Abreu MD LAB BLOOD ORDERABLES Fi nal Result [facility] [place] [facility] [place] [address] * CT Chest W Contrast (07/15/2025 2:55 AM CDT) Anatomical Region Laterality Modality Body N/A Computed Tomogra phy 07/15/2025 3:06 AM CDT Narrative 07/15/2025 3:09 AM CDT EXAM DESCRIPTION: CT CHEST W CONTRAST REASON FOR STUDY: Chest wall pain, nontraumatic, infection or inflammation suspected, xray done right breast swelling since TECHNIQUE: CT scan of the chest performed with intravenous contrast using helical scanning technique with dynamic intravenous contrast injection. Reconstructed coronal and sagittal MPR images reviewed. All images stored on PACS. Automated exposure control was used as a dose optimization technique for this examination. CONTRAST TYPE/DOSE: 100mL of IOVERSOL 350 MG IODINE/ML INTRAVENOUS SYRINGE injected via intravenous COMPARISON: 11/14/2023 FINDINGS: LUNGS: Clear. Trachea and major airways patent. HEART/MEDIASTINUM/TAYLOR: Moderate cardiomegaly. Coronary artery calcifications. Trace pericardial effusion. Thyroid goiter. No enlarged lymph node. UPPER ABDOMEN: Gallstones. Small ascites. MUSCULOSKELETAL: Moderate cervical, mild upper thoracic disc disease. Shoulder arthritis. CHEST WALL: Extensive body wall edema. IMPRESSION: 1. No focal chest wall abnormality identified. Extensive body wall edema. 2. Body wall edema and ascites are evidence for fluid overload. No PE. Lungs clear. THIS IS AN ELECTRONICALLY VERIFIED FINAL REPORT 07/15/2025 3:09 AM - Electronically signed by Bora Lopez M.D. AR: MERRY Report ID: [id number] Reading Location: [id number] Procedure Note Bora Lopez MD - 07/15/2025 EXAM DESCRIPTION: CT CHEST W CONTRAST REASON FOR STUDY: Chest wall pain, nontraumatic, infection or inflammation suspected, xray done right breast swelling since TECHNIQUE: CT scan of the chest performed with intravenous contrast using helical scanning technique with dynamic intravenous contrast injection. Reconstructed coronal and sagittal MPR images reviewed. All images storedon PACS. Automated exposure control was used as a dose optimizationtechnique for this examination. CONTRAST TYPE/DOSE: 100mL of IOVERSOL 350 MG IODINE/ML INTRAVENOUS SYRINGE injected via intravenous COMPARISON: 11/14/2023 FINDINGS: LUNGS: Clear. Trachea and major airways patent. HEART/MEDIASTINUM/TAYLOR: Moderate cardiomegaly. Coronary artery calcifications. Trace pericardial effusion. Thyroid goiter. No enlarged lymph node. UPPER ABDOMEN: Gallstones. Small ascites. MUSCULOSKELETAL: Moderate cervical, mild upper thoracic disc disease. Shoulder arthritis. CHEST WALL: Extensive body wall edema. IMPRESSION: 1. No focal chest wall abnormality identified. Extensive body walledema. 2. Body wall edema and ascites are evidence for fluid overload. No PE. Lungs clear. THIS IS AN ELECTRONICALLY VERIFIED FINAL REPORT 07/15/2025 3:09 AM - Electronically signed by Bora Lopez M.D. AR: MERRY Report ID: [id number] Reading Location: [place] [address] Dionne Nava MD IMG CT PROCEDURES Final Result * ECG 12 lead (07/15/2025 2:33 AM CDT) 07/15/2025 2:33 AM CDT [facility] - 07/15/2025 6:57 AM CDT Vent Rate: 104 bpm RR Interval: 572 msec DE Interval: 0 msec QRS Duration: 105 msec QT Interval: 374 msec QTC Interval: 435 msec P-R-T [place]: [id number] - 7 - 250 degrees IMPRESSION: ATRIAL FIBRILLATION WITH RAPID VENTRICULAR RESPONSE ABNORMAL QRS-T ANGLE [QRS-T AXIS DIFFERENCE > 60] ABNORMAL ECG Electronically Signed By: Khanh Nathan MD us Dionne Nava MD ECG ORDERABLES Final Result Performing Organization Address City/[facility]/ZIP Co de Phone Number [facility] * Aerobic culture and gram stain Wound Ankle, right (07/15/2025 12:47 AM CDT) Direct Specimen Exam Stain: No polymorphonuclear leukocytes seen. No organisms seen. Comment:Testing performed by : [facility], [address] [place] [address] Report Final Report: Few Mixed skin microorganisms. RADHA RUBALCAVA ([place]) Comment:Testing performed by : [facility], [address] [place]., [address] Organism MIXED SKIN MICROORGANISMS. RADHA RUBALCAVA ([place]) Wound (Ankle, right) 07/15/2025 12:47 AM CDT 07/15/2025 4:02 AM CDT Narrative RADHA RUBALCAVA ([place]) - 07/17/2025 2:47 PM CDT Testing performed by [facility] ([phone]) Specimens submitted from normally sterile body sites will have all bacterial morphotypes identified. Specimens that contain grossly mixed jacob and/or are from body sites that are not normally sterile will be examined for Staphylococcus aureus, Pseudomonas aeruginosa, beta-hemolytic strep, vancomycin-resistant Enterococcus and fungus. If any of these are isolated, the organism will be reported. Current interpretive data was last revised on 2017. Dionne Nava MD LAB MICROBIOLOGY - GENERAL ORDER VARGAS Final Result RADHA RUBALCAVA ([place]) 1 [facility] Department [place] [address] * Blood culture Blood Peripheral (07/15/2025 12:46 AM CDT) Report Final Report: No growth Comment:Testing performed by : [facility], [address] [place]., [address] Blood (Peripheral) 07/15/2025 12:46 AM CDT 07/15/2025 4:03 AM CDT Narrative RADHA RUBALCAVA ([place]) - 07/19/2025 7:01 AM CDT From a different site than #1. Draw Blood cultures before administration of Antibiotics Collection->Peripheral 1. Blood cultures are incubated for 4 days on a continuously monitored blood culture system. The first report of a negative culture is issued within 24 hours of receipt of the specimen in the laboratory. 2. Positive culture results are reported as soon as they are detected. 3. The most important factor for detection of microbes in the setting of bloodstream infection is the volume of blood submitted for culture. Failure to collect an optimal blood volume can result in false negative blood cultures. 4. For pediatric patients, the recommended blood volume to collect follows a weight based strategy. See the electronic test catalog for collection instructions. 5. For positive blood cultures, a rapid molecular test may be performed for organism identification using the praveen ePlex blood culture identification panel for gram positive (BCID-GP) and gram negative (BCID-GN) organisms. This nucleic acid amplification test detects microbial DNA in positive blood culture broth. This assay has been cleared by the [place] Food and Drug Administration and its performance characteristics have been verified by the [facility]. For questions about this culture, contact the Microbiology Laboratory at [phone]. Interpretive data was last revised on 24. Dionne Nava MD LAB MICROBIOLOGY - GENERAL ORDER VARGAS Final Result RADHA RUBALCAVA ([place]) 1 [facility] [place] [address] * Sepsis Lactate w/ Reflex (07/15/2025 12:39 AM CDT) Sepsis Lactate 1.8 0.7 - 2.0 mmol/L Blood 07/15/2025 12:3 9 AM CDT 07/15/2025 12:41 AM CDT Dionne Nava MD LAB BLOOD ORDERABLES Final Resul t RADHA RUBALCAVA ([place]) 1 [facility] [place] [address] * eGFR (07/15/2025 12:39 AM CDT) eGFR 73 >=60 mL/min/1. 73 m2 Comment: Interpretive Data [...] interpretive data was last reviewed 2021. Blood 07/15/2025 12:3 9 AM CDT 07/15/2025 12:41 AM CDT us Dionne aNva MD LAB BLOOD ORDERABLES Final Resul t [facility] ([place]) 1 [facility] [place] [address] * Differential, auto (07/15/2025 12:39 AM CDT) Neutrophil abs 2.56 1.50 - 6.50 K/cumm Imm gran abs 0.02 0.00 - 0.10 K/cumm [facility] ([place]) Lymphocyte abs 1.63 0.80 - 3.30 K/cumm [facility] ([place]) Monocyte abs 0.32 0.20 - 0.80 K/cumm [facility] ([place]) Eosinophil abs 0.04 0.00 - 0.50 K/cumm [facility] ([place]) Basophil abs 0.02 0.00 - 0.10 K/cumm [facility] ([place]) Neutrophil pct 55.8 % [facility] ([place]) Comment: Interpretive Data Percent cell count reference ranges are not reported, since discordance with absolute values may lead to misinterpretation of CBC data. Current Interpretive Data was last revised on 2018. Imm gran pct 0.4 % [facility] ([place]) Comment: Interpretive Data Percent cell count reference ranges are not reported, since discordance with absolute values may lead to misinterpretation of CBC data. Current Interpretive Data was last revised on 2018. Lymphocyte pct 35.5 % [facility] ([place]) Comment: Interpretive Data Percent cell count reference ranges are not reported, since discordance with absolute values may lead to misinterpretation of CBC data. Current Interpretive Data was last revised on 2018. Monocyte pct 7.0 % [facility] ([place]) Comment: Interpretive Data Percent cell count reference ranges are not reported, since discordance with absolute values may lead to misinterpretation of CBC data. Current Interpretive Data was last revised on 2018. Eosinophil pct 0.9 % [facility] ([place]) Comment: Interpretive Data Percent cell count reference ranges are not reported, since discordance with absolute values may lead to misinterpretation of CBC data. Current Interpretive Data was last revised on 2018. Basophil pct 0.4 % [facility] ([place]) Comment: Interpretive Data Percent cell count reference ranges are not reported, since discordance with absolute values may lead to misinterpretation of CBC data. Current Interpretive Data was last revised on 2018. Blood 07/15/2025 12:3 9 AM CDT 07/15/2025 12:41 AM CDT us Dionne Nava MD LAB BLOOD ORDERABLES Final Resul t RADHA [facility]ALCA[facility] ([place]) 1 [facility] [place] [address] * (ABNORMAL) CBC with auto differential (07/15/2025 12:39 AM CDT) WBC 4.59 3.80 - 9.90 K/cumm Hgb 11.0(L) 11.9 - 15.5 g/dL [facility] ([place]) Hct 32.9(L) 35.6 - 45.5 % [facility] ([place]) Plt 192 150 - 400 K/cumm [facility] ([place]) MPV 10.1 9.1 - 12.3 fL [facility] ([place]) RBC 4.34 3.90 - 5.20 M/cumm [facility] ([place]) MCV 75.8(L) 81.3 - 96.4 fL [facility] ([place]) MCH 25.3(L) 27.1 - 33.3 pg [facility] ([place]) MCHC 33.4 32.3 - 35.7 g/dL [facility] ([place]) RDW CV 22.9(H) 11.1 - 14.9 % [facility] ([place]) RDW SD 58.1(H) 35.7 - 48.1 fL [facility] ([place]) NRBC abs 0.00 0.00 - 0.01 K/cumm [facility] ([place]) Blood 07/15/2025 12:3 9 AM CDT 07/15/2025 12:41 AM CDT us Dionne Nava MD LAB BLOOD ORDERABLES Final Resul t [facility] ([place]) 1 [facility] Department of Laboratories [place], [place] [id number] * Blood culture Blood Peripheral (07/15/2025 12:39 AM CDT) Report Final Report: No growth Comment:Testing performed by : [facility], 1 [facility], [place]., [address] Blood (Peripheral) 07/15/2025 12:39 AM CDT 07/15/2025 4:03 AM CDT Narrative [facility] ([place] - 07/19/2025 7:00 AM CDT Draw Blood cultures before administration of Antibiotics Collection->Peripheral 1. Blood cultures are incubated for 4 days on a continuously monitored blood culture system. The first report of a negative culture is issued within 24 hours of receipt of the specimen in the laboratory. 2. Positive culture results are reported as soon as they are detected. 3. The most important factor for detection of microbes in the setting of bloodstream infection is the volume of blood submitted for culture. Failure to collect an optimal blood volume can result in false negative blood cultures. 4. For pediatric patients, the recommended blood volume to collect follows a weight based strategy. See the electronic test catalog for collection instructions. 5. For positive blood cultures, a rapid molecular test may be performed for organism identification using the praveen ePlex blood culture identification panel for gram positive (BCID-GP) and gram negative (BCID-GN) organisms. This nucleic acid amplification test detects microbial DNA in positive blood culture broth. This assay has been cleared by the [place] Food and Drug Administration and its performance characteristics have been verified by the [facility]. For questions about this culture, contact the Microbiology Laboratory at [phone]. Interpretive data was last revised on 24. Dionne Nava MD LAB MICROBIOLOGY - GENERAL ORDER VARGAS Final Result [facility] ([place]) 1 [facility] [place] [address] * (ABNORMAL) Comprehensive metabolic panel (07/15/2025 12:39 AM CDT) Sodium 140 135 - 145 mmol/L Potassium, pl 3.2(L) 3.3 - 4.9 mmol/L [facility] ([place]) Chloride 102 97 - 110 mmol/L [facility] ([place]) CO2 25 22 - 32 mmol/L [facility] ([place]) Anion gap 13 2 - 15 mmol/L [facility] ([place]) BUN 11 6 - 25 mg/dL [facility] ([place]) Creatinine 0.85 0.60 - 1.10 mg/dL [facility] ([place]) Glucose 79 70 - 199 mg/dL [facility] ([place]) Comment: Interpretive Data Fasting glucose >/= 126 [...] Calcium 9.6 8.5 - 10.3 mg/dL [facility] ([place]) Bilirubin, total 2.6(H) 0.1 - 1.2 mg/dL [facility] ([place]) Protein, pl 7.7 6.5 - 8.5 g/dL [facility] ([place]) Albumin 3.8 3.5 - 5.0 g/dL [facility] ([place]) Alk phos 96 40 - 130 Units/L [facility] ([place]) ALT 41 7 - 45 Units/L [facility] ([place]) AST 70(H) 10 - 45 Units/L [facility] ([place]) Blood 07/15/2025 12:3 9 AM CDT 07/15/2025 12:41 AM CDT us Dionne Nava MD LAB BLOOD ORDERABLES Final Resul t [facility] ([place]) 1 [facility] [place] [address] * XR Ankle Right 3 or More [...] Jalen Vazquez M.D. TH: TH Report ID: [id number] Reading Location: [place] [address] Procedure Note Jalen Vazquez MD - 06/10/2025 [...] Jalen Vazquez M.D. TH: TH Report ID: [id number] Reading Location: [place] [address] Florentino Mcgowan MD IMG XR PROCEDURES Final R esult * (ABNORMAL) Albumin Creatinine Ratio, Urine (04/01/2025 10:33 AM CDT) Albumin Ur 38.6 mg/L Comment: Interpretive Data No reference range established. Current interpretive data was last revised 2019. Testing performed by: [facility], [address] [place] [address]., [address] Creatinine Ur 122.1 mg/dL RADHA Comment: Interpretive Data No reference range established. Current interpretive data was last revised 2019. Testing performed by: [facility], [address] [place] [address]., [address] Albumin Creatinine Ratio, Ur 32(H) 1 - 29 mg/g RADHA Comment:Testing performed by : [address] [address] Urine 04/01/2025 10:3 3 AM CDT 04/01/2025 3:54 PM CDT Elisabeth Aranda CAD ENGINEER LAB URINE ORDERABLES Final Re sult RADHA [address] Department of Laboratories [place], [place] [id number] * Lipid panel (04/01/2025 10:33 AM CDT) [...] last revised on 2018. Testing performed by: [address] [address] Triglycerides 89 <=149 mg/dL RADHA Comment: Interpretive Data Ages < [...] last revised on 2018. Testing performed by: [facility], [address] [place] [address]., [address] HDL 68 >=40 mg/dL RADHA Comment: Interpretive [...] last revised on 2018. Testing performed by: [facility], [address] [place] [address]., [address] LDL, calculated 74 <=129 mg/dL RADHA Comment: [...] last revised on 2024. Testing performed by: [address] [address] Non-HDL Cholesterol 90 mg/dL RADHA Comment: Interpretive [...] last revised on 2018. Testing performed by: [address] [address] Chol/HDL ratio 2 RADHA Comment:Testing performed by : [address] [address] Blood 04/01/2025 10:3 3 AM CDT 04/01/2025 3:53 PM CDT us Elisabeth Aranda CAD ENGINEER LAB BLOOD ORDERABLES Final Re sult [facility] [address] Department of [place] [address] * Hepatitis C antibody Blood (11/04/2024 9:02 PM COASTAL/HARBOR DEFENSE OFFICER) Hep C Ab Nonreactive Nonreactive Comment:Antibodies to HCV no t detected. Does NOT exclude the possibility of recent exposure to HCV. Current interpretive data was last revised on 22 Blood 11/04/2024 9:02 PM COASTAL/HARBOR DEFENSE OFFICER 11/04/2024 9:15 PM COASTAL/HARBOR DEFENSE OFFICER us Notinfile Unknown LAB MICROBIOLOGY - GENERAL ORD ERABLES Final Result RAD[facility] Department of [place] [address] * Colonoscopy (07/22/2024 10:32 AM CDT) Anatomical Region Laterality Modality Other Narrative Procedure Note Piero Nieves MD - 07/22/2024 10:32 AM CDT [facility] Endoscopy Lab Patient Name: Rylee Snell Procedure Date: 07/22/2024 10:32AM Date of : 1950 Admit Type: Outpatient Age: 73 Gender: Female Note Status: Finalized Attending MD: Piero Nieves M.D. Procedure Date: 07/22/2024 Procedure: Colonoscopy Indications: Screening for colorectal malignant neoplasm Providers: Piero Nieves M.D., KEVIN Deutsch (Anesthesia Staff), Rimma Medina RN, Marya Mcknight, Office Technology Professor Referring MD: Aaron Camargo M.D. Medicines: Monitored [...] bowel preparation was evaluated using the BBPS ([place] Bowel Preparation Scale)with scores of: Right Colon [...] polyp removal. Procedure Code(s): --- Professional --- 79655, Colonoscopy, flexible; with endoscopicmucosal resection 04440, 59, Colonoscopy, flexible; with biopsy,single or multiple Diagnosis Code(s): --- Professional --- D12.3, Benign neoplasm of transverse colon (hepatic flexure or splenic flexure) Z12.11, Encounter for screening for malignantneoplasm of colon K64.4, Residual hemorrhoidal skin tags CPT copyright 2020 [employer]. All rights reserved. The codes documented in this report are preliminary and upon right of way cutter reviewmay be revised to meet current compliance [...] Most Recently Relevant to Health Maintenance Insurance [employer] [facility] MEDICARE MEDICARE Advance Directives For more information, please contact: [phone] * Full Code (Latest Code Status on File) Date Activated Date Inactivated Comments 07/24/2025 4:02 PM 07/27/2025 10:04 PM * Full Code Date Activated Date Inactivated Comments 07/15/2025 9:58 AM 07/20/2025 10:59 PM * Full Code Date Activated Date Inactivated Comments 07/15/2025 9:58 AM 07/15/2025 9:58 AM * Full Code Date Activated Date Inactivated Comments 10/28/2024 6:50 PM 11/05/2024 7:53 PM * Full Code Date Activated Date Inactivated Comments 08/29/2024 3:16 AM 09/02/2024 11:09 PM Care Teams Digital Content Marketing Manager Relationship Specialty Start Date End Date Elisabeth Aranda NP [address] [facility] [address] [place] [address] PCP - General Family Medicine 04/01/25 Aaron Camargo MD [address] [facility] [address] [place] [address] Family Medicine 11/14/24 Florentino Mcgowan MD [address] [facility] [address] [place] [address] Consulting Physician Orthopedic Surgery 10/08/24 Juan Jose Caldwell MD [address] [place] [address] Consulting Physician Infectious Diseases 11/02/24
--- OUTSIDE RECORDS SUMMARY | 2025-08-12 04:34 | XMS_ITS | Encounter Summary ---
Author Organization [facility] Healthcare Address [address] [place] [address] Care Team Providers Care Garment Tag Stringer Name Role Phone Aaron Camargo MD Unavailable Florentino Mcgowan MD Unavailable [phone] Juan Jose Caldwell MD Unavailable Elisabeth Aranda NP Primary Care Provider [phone] Encounter Details Date Type Department Care Team (Late st Contact Info) Description 08/04/2025 Telephone [facility] Primary Care at [place] [address] [place] [address] [address] [place] [address] Elisabeth Aranda, HORTENCIA [address] [facility] 110 [place] [address] Social History Tobacco Use Types Packs/Day Years Used Date Smoking Tobacco: Former Cigarettes Smokeless Tobacco: Never Alcohol Use Standard Drinks/Week Comments Never 0 [...] place to sleep or slept in a detention (including now)? No 11/15/2023 PHQ-9 Answer Date [...] any time in the past 12 m [facility], were you homeless or living in a detention (including now)? No 11/13/2024 Social Connection and Isolation Panel Answer Date Recorded In a typical week, how many times do you talk on the phone with family, friends, or neighbors? More than three times a week 07/27/2025 How often do you get togethe r with friends or relatives? More than three times a week 07/27/2025 How often do you attend chur ch or pentecostalism services? More than 4 times per year 07/27/2025 Do you belong to any clubs o r organizations such as shinto groups, unions, fraternal or athletic groups, or [...] any time in the past 12 m [facility], were you homeless or living in a detention (including now)? 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 Gender Identity Not on file Sexual Orientation Not on file documented as of this encounter Plan of Treatment Not on file documented as of this encounter Visit Diagnoses Not on filedocumented in this encounter Care Teams Garment Tag Stringer Relationship Specialty Start Date End Date Elisabeth Aranda NP [address] [facility] [address] [place] [address] PCP - General Family Medicine 04/01/25 Aaron Camargo MD [address] [place] [address] Family Medicine 11/14/24 Florentino Mcgowan MD [address] [facility] [place] [address] Consulting Physician Orthopedic Surgery 10/08/24 Juan Jose Caldwell MD [address] [place] [address] Consulting Physician Infectious Diseases 11/02/24 documented as of this encounter
--- OUTSIDE RECORDS SUMMARY | 2025-08-12 04:35 | XMS_ITS | Encounter Summary ---
Author Organization [facility] Healthcare Address [address] [place] [address] Care Team Providers Care Bulk Loader Name Role Phone Aaron Camargo MD Unavailable [phone] Florentino Mcgowan MD Unavailable [phone] Juan Jose Caldwell MD Unavailable Elisabeth Aranda NP Primary Care Provider [phone] Reason for Visit * Reason Onset Date Comments Med Refill 08/04/2025 Encounter Details Date Type Department Care Team (Late st Contact Info) Description 08/04/2025 Telephone [facility] Primary Care at [address] [place] [address] Elisabeth Aranda, HORTENCIA [address] [place], [place] [id number] Med Refill Social History Tobacco Use Types Packs/Day Years [...] in a fpc (including now)? No 11/15/2023 PHQ-9 Answer Date [...] any time in the past 12 m [facility], were you homeless or living in a fpc (including now)? No 11/13/2024 Social Connection and Isolation Panel Answer Date Recorded In a typical week, how many times do you talk on the phone with family, friends, or neighbors? More than three times a week 07/27/2025 How often do you get togethe r with friends or relatives? More than three times a week 07/27/2025 How often do you attend [facility] or evangelical services? More than 4 times per year 07/27/2025 Do you belong to any clubs o r organizations such as restorationism groups, unions, fraternal or athletic groups, or [...] any time in the past 12 m [facility], were you homeless or living in a fpc (including now)? 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 For the Amiodarone, patient is unable to get this medication has her insurance has lapsed until August and they are wanting to know if there is something FINANCIAL COACH Manoj can do to help patient get this medication. For the Carvedilol, pharmacy doesn't have the new dose yet but patient still had the previous dose of 3.125 and Elham stated she informed the patient to just double up on the medication until she getsthe new dose If needed, Pharmacy(s) medication(s) should be sent to: [facility] [address] [facility] [id number] Additional Comments: please give nurse a call back Does message need to be routed? Yes-Action Needed TIGRAPHY TEACHER documented in this encounter Plan of Treatment Not on file documented as of this encounter Visit Diagnoses Not on filedocumented in this encounter Care Teams Bulk Loader Relationship Specialty Start Date End Date Elisabeth Aranda NP [address] [facility] [address] [place] [address] PCP - General Family Medicine 04/01/25 Aaron Camargo MD [address] [facility] 130 [place] [address] Family Medicine 11/14/24 Florentino Mcgowan MD [address] [facility] [address] [place] [address] Consulting Physician Orthopedic Surgery 10/08/24 Juan Jose Caldwell MD [address] [place] [address] Consulting Physician Infectious Diseases 11/02/24 documented as of this encounter
[2025-08-12 06:10] LABS: Anion Gap 8 mmol/L (4-12); Blood Urea Nitrogen 13 mg/dL (7-17); Calcium 8.8 mg/dL (8.4-10.2); Carbon Dioxide 20 mmol/L (22-30); Chloride 110 mmol/L (98-107); Estimated CRCL calculation 46 ml/min; Estimated Glomerular Filt Rate 60; Glucose 134 mg/dL (65-110); Magnesium 1.9 mg/dL (1.6-2.3); Potassium 3.4 mmol/L (3.4-5.0); Sodium 138 mmol/L (137-145)
[2025-08-12] MEDS: POTASSIUM CHLORIDE 20 MEQ PACKET (FOR LIQUID) PO (06:14)
[2025-08-12 07:24] LABS: Hematocrit 35.6 % (37.0-47.0); Hemoglobin 11.1 g/dL (12.0-15.0); Immature Platelet Fraction Pct 3.0 % (0.9-11.2); Mean Corpuscular HGB Conc 31.2 g/dl (32-36); Mean Corpuscular Hemoglobin 25.3 pg (26-34); Mean Corpuscular Volume 81.3 fl (80-100); Platelet Count Result 180 k/mm3 (150-375); Red Blood Count 4.38 M/mm3 (4.2-5.4); White Blood Count 3.8 K/mm3 (4.5-10.0)
--- NOTE | 2025-08-12 08:22 | P.PNIM_ITS ---
Progress Note: A&P Assessment and Plan (1) Atrial fibrillation with RVR: Code(s): I48.91 - Unspecified atrial fibrillation Status: Acute Assessment and Plan: -the patient is not aware of her medication list. However she is aware that she is on on Eliquis. Her daughter is bringing in the home medications so that we can verify them in get her restarted on her home medications. -the patient typically goes to [facility]. Requesting records from the internal revenue service agent for review. -the patient has been going in and out of AFib throughout the night. Sometimes she has bradycardia and with activity her heart rate gets of the 130s and she is back in AFib. -she had been on a Cardizem drip but is now stopped due to the bradycardia. -resume home medications when able including Eliquis. Her nosebleed has stopped. -she can follow-up with her internal revenue service agent at [facility]. (2) Congestive heart failure: Code(s): I50.9 - Heart failure, unspecified Status: Acute Assessment and Plan: -resume home medications when they are verified. -the patient has a LifeVest with her. -cardiology records have been requested. -no fluid overload noted. -current BNP is 3290. (3) Epistaxis: Code(s): R04.0 - Epistaxis Status: Acute Assessment and Plan: -this was stopped in the emergency room with pressure. -consulted ENT -appreciated recommendation on restarting Eliquis -H&H appears to be stable. -will start evening dose of Eliquis (4) Hypertension: Code(s): I10 - Essential (primary) hypertension Status: Acute Assessment and Plan: -her blood pressure was initially elevated. She is currently 139/79 (5) CAD (coronary artery disease): Code(s): I25.10 - Atherosclerotic heart disease of [place] coronary artery without angina pectoris Status: Acute Assessment and Plan: -the patient stated that she has 1 cardiac stent. -[facility]. (6) Chronic venous stasis: Code(s): I87.8 - Other specified disorders of veins Status: Acute Assessment and Plan: -the patient stated that she is had her lower extremities debrided the past. She stated that [facility] and soon they will be debriding her right medial lower extremity. -wound care consultation was placed. Further examination and recommendations greatly appreciated. -the wounds do not appear to be infected at this time. It appears that the patient has been placed on clindamycin in the past but is not currently on any antibiotics. (7) Anemia: Code(s): D64.9 - Anemia, unspecified Status: Acute Assessment and Plan: -at H&H is at her baseline. Even with the epistaxis her H&H remained the same. (8) Hypokalemia: Code(s): E87.6 - Hypokalemia Status: Acute Assessment and Plan: -unsure if the patient is on diuretics at home. -check magnesium levels as well. -supplement when necessary. Her current potassium is 3.2. Subjective Date/time seen: 08/12/25 08:22 Interval history: Patient was admitted in the setting of nosebleed. Consulted ENT and appreciate recommendation on restarting Eliquis. Cardiology consulted. According to the Cardiology patient has a history of nonischemic cardiomyopathy and persistent atrial fibrillation and follows up with Cardiology at [place]. Her evaluation eventually will lead to left heart catheterization that was done at [facility] July 20, 2025. She was found to have no significant coronary artery disease and left ventricular systolic function with an ejection fraction of about 30%. Since the diagnosis she has been in atrial fibrillation as well. They have been managing the patient with amiodarone as well as guideline directed medical therapy for atrial fibrillation and systemic anticoagulation with apixaban. No more episodes of epistaxis will start the evening dose of Eliquis Review of Systems Constitutional: Constitutional: Reports as per HPI and Reports no additional constitutional complaints Eyes: Eyes: Reports as per HPI and Reports no additional eye complaints ENT: Reports system reviewed and no additional complaints, except as documented and Reports Normal hearing present Cardiovascular: Cardiovascular: Reports no additional cardiovascular complaints Respiratory: Respiratory: Reports as per HPI and Reports no additional respiratory complaints Gastrointestinal: Gastrointestinal: Reports as per HPI and Reports no additional gastrointestinal complaints Genitourinary: Genitourinary: Reports no additional female genitourinary complaints Musculoskeletal: Musculoskeletal: Reports no additional musculoskeletal complaints Integumentary/Breasts: Skin/Breast: Reports system reviewed and no additional complaints, except as docu Neurologic: Reports system reviewed and no additional complaints, except as documented and Reports Normal hearing present Psychiatric: Psychiatric: Reports no additional psychiatric complaints and Reports as per HPI Hematologic/Lymphatic: Hematologic/Lymphatic: Reports no additional hematologic/lymphatic complaints Allergic/Immunologic: Allergic/Immunologic: Reports no additional allergic/immunologic complaints Exam Const: General: cooperative, healthy appearing, comfortable, no acute distress, well developed, awake, Physically active, average body habitus and well nourished Nutritional Appearance: average body habitus and well nourished Orientation/consciousness: oriented to person, oriented to place, oriented to time and patient oriented x3 Limitations: no limitations HENMT: Head: normal to inspection, No palpable skull fracture present, normocephalic, atraumatic and abrasion Ears: external ears normal Throat: posterior oropharynx normal Other: And no blood noted to either nostril. No blood noted in the posterior pharynx. Patient is slightly hard of hearing. Eyes: General: appearance normal, both eyes and all related structures Alignment and Position: alignment normal Periorbital: periorbital findings normal Eyelids: eyelids normal EOM: EOMs intact bilaterally Neck: Neck: normal visual inspection, full ROM and no lymphadenopathy Chest: Chest palpation & inspection: normal inspection of the chest Resp: Effort & Inspection: normal respiratory effort Auscultation: clear to auscultation bilaterally Percussion: percussion normal Cardio: Palpation: normal PMI Rhythm: abnormal rhythm Heart sounds: S1 normal heart sound present and S2 normal heart sound present Peripheral pulses: Peripheral pulses 2+ throughout Other: Patient is going in out of AFib. GI: Inspection: normal to inspection Auscultation: normal bowel sounds Rectal Exam: deferred Skin: General skin exam: normal color Lesions: no lesions Rashes: no rashes Trauma: no lacerations or abrasions Hair: normal Nails: normal Other: Patient has multiple ulcerated areas to bilateral lower extremities. Approximately 2 x 3. This is chronic. Neuro: General: oriented to person, oriented to place, oriented to time and patient oriented x3 Cranial nerves: Yes Normal hearing present Cognition (Neuro): normal cognition Speech: normal speech Gait exam (Neuro): Normal gait present Motor exam (neuro): 5/5 motor strength present throughout Sensory Exam: normal sensation Other: Patient is a poor historian. Extrem: General: normal to inspection Right upper extremity: normal to inspection and shoulder/upper arm Left upper extremity: normal to inspection and shoulder/upper arm Right lower extremity: normal to inspection Left lower extremity: normal to inspection Other: Multiple ulcerated areas to bilateral lower extremities. No drainage noted. No erythema around the ulcerated areas. Psych: Appearance: grossly normal Mental Status: mental status grossly normal Speech and movement: Normal speech and movement present Affect: normal affect Attitude: cooperative Thought process: Normal thought process present Objective Data Vital Signs Vital Signs: Vital Signs - 24 hr 08/11/25 18:39 08/11/25 19:13 08/11/25 19:15 Temperature 97.7 F Pulse Rate 150 H 137 H 134 H Respiratory Rate 12 29 H 22 H Blood Pressure 170/118 H Pulse Oximetry 100 100 Oxygen Delivery 08/11/25 19:16 08/11/25 19:30 08/11/25 19:31 Temperature Pulse Rate 133 H 129 H 88 Respiratory Rate 20 20 16 Blood Pressure 159/96 H 156/88 H Pulse Oximetry 100 99 99 Oxygen Delivery 08/11/25 19:41 08/11/25 19:45 08/11/25 19:48 Temperature Pulse Rate 128 H 128 H 132 H Respiratory Rate 25 H 22 H Blood Pressure 157/82 H Pulse Oximetry 100 100 Oxygen Delivery 08/11/25 20:00 08/11/25 20:01 08/11/25 20:15 Temperature Pulse Rate 71 110 H 62 Respiratory Rate 16 23 H 21 H Blood Pressure 127/77 Pulse Oximetry 100 99 100 Oxygen Delivery 08/11/25 20:21 08/11/25 20:30 08/11/25 20:41 Temperature Pulse Rate 120 H 67 66 Respiratory Rate 24 H 22 H 21 H Blood Pressure 131/91 H 135/102 H Pulse Oximetry 99 100 100 Oxygen Delivery 08/11/25 20:45 08/11/25 21:00 08/11/25 21:01 Temperature Pulse Rate 67 75 Respiratory Rate 16 23 H Blood Pressure 152/92 H Pulse Oximetry 99 100 Oxygen Delivery 08/11/25 21:05 08/11/25 21:15 08/11/25 21:21 Temperature Pulse Rate 68 71 124 H Respiratory Rate 19 20 Blood Pressure 152/92 H 151/102 H Pulse Oximetry 100 Oxygen Delivery 08/11/25 21:30 08/11/25 21:41 08/11/25 21:45 Temperature Pulse Rate 69 123 H 94 Respiratory Rate 20 24 H 29 H Blood Pressure 147/101 H Pulse Oximetry 100 100 100 Oxygen Delivery 08/11/25 22:00 08/11/25 22:01 08/11/25 22:04 Temperature 97.8 F Pulse Rate 124 H 123 H Respiratory Rate 22 H 20 Blood Pressure 154/107 H Pulse Oximetry 99 100 Oxygen Delivery 08/11/25 22:15 08/11/25 22:21 08/11/25 22:30 Temperature Pulse Rate 127 H 76 124 H Respiratory Rate 21 H 16 21 H Blood Pressure 150/96 H Pulse Oximetry 99 99 100 Oxygen Delivery 08/11/25 22:45 08/11/25 22:46 08/11/25 23:13 Temperature Pulse Rate 120 H 75 73 Respiratory Rate 19 18 16 Blood Pressure 151/93 H 151/93 H Pulse Oximetry 100 100 99 Oxygen Delivery 08/11/25 23:39 08/12/25 00:00 08/12/25 00:00 Temperature 97.6 F Pulse Rate 70 125 H 125 H Respiratory Rate 21 H 21 H Blood Pressure 149/91 H Pulse Oximetry 100 100 Oxygen Delivery Room Air 08/12/25 00:00 08/12/25 02:00 08/12/25 02:00 Temperature Pulse Rate 120 H 64 62 Respiratory Rate Blood Pressure 149/91 H 142/62 H Pulse Oximetry Oxygen Delivery 08/12/25 02:10 08/12/25 02:15 08/12/25 02:30 Temperature Pulse Rate 64 60 58 L Respiratory Rate Blood Pressure 142/64 H Pulse Oximetry Oxygen Delivery 08/12/25 03:24 08/12/25 03:24 08/12/25 03:30 Temperature Pulse Rate 58 L 58 L 58 L Respiratory Rate 21 H Blood Pressure Pulse Oximetry 100 Oxygen Delivery Room Air 08/12/25 04:00 08/12/25 05:36 08/12/25 07:38 Temperature 97.5 F L Pulse Rate 61 108 H Respiratory Rate 17 Blood Pressure 139/78 Pulse Oximetry 100 99 Oxygen Delivery Room Air 08/12/25 08:05 Temperature 98.2 F Pulse Rate 76 Respiratory Rate 18 Blood Pressure 159/89 H Pulse Oximetry 100 Oxygen Delivery Intake/Output Intake/Output: Intake & Output 08/09/25 08/10/25 08/11/25 08/12/25 23:59 23:59 23:59 23:59 Intake Total 37.5 Balance 37.5 Meds/Results Medications: Active Medications Generic Name Dose Route Start Last Admin Trade Name Freq PRN Reason Stop Dose Admin Ondansetron HCl 4 mg 08/11/25 21:04 Ondansetron Inj 4 Mg/2 Ml Vial IV PUSH Q4H PRN Nausea Radiology Results: ITS Impressions Chest X-Ray 08/11/25 21:01 IMPRESSION: 1. No acute pulmonary findings. Significant cardiomegaly and atherosclerotic aorta. Labs Labs: Laboratory Results - last 24 hr 08/11/25 08/11/25 08/12/25 19:39 22:45 03:07 WBC 4.0 L 4.5 RBC 4.24 3.92 L Hgb 11.0 L 10.1 L Hct 34.6 L 31.9 L MCV 81.6 81.4 MCH 25.9 L 25.8 L MCHC 31.8 L 31.7 L RDW 29.0 H 28.6 H Plt Count 190 177 MPV 10.5 H 10.2 Immature Gran % (Auto) 0.3 0.4 Neut % (Auto) 43.8 L 39.7 L Lymph % (Auto) 46.3 H 47.9 H [place] % (Auto) 7.5 10.3 H Eos % (Auto) 1.8 1.3 Baso % (Auto) 0.3 0.4 Lymph # (Auto) 1.85 2.14 [place] # (Auto) 0.3 0.5 Eos # (Auto) 0.1 0.1 Baso # (Auto) 0.0 0.0 Abs Immat Gran (auto) 0.01 0.02 Absolute Neuts (auto) 1.8 1.8 Absolute Nucleated RBC 0.000 0.000 Band Neutrophils % 0 Not Reportable Nucleated RBC % 0.0 0.0 Platelet Estimate Adequate Adequate % Immature Plt Fraction 3.0 3.1 Hypochromasia 1+ 1+ Anisocytosis 3+ Target Cells Occasional Schistocytes None seen None seen Sodium 138 138 Potassium 3.2 L 3.4 Chloride 107 110 H Carbon Dioxide 23 20 L Anion Gap 8 8 BUN 14 D 13 Creatinine 1.06 H 0.92 Estim Creat Clear Calc 41 46 Estimated GFR 51 L 60 Glucose 103 134 H Calcium 8.8 8.8 Magnesium 1.9 Total Bilirubin 1.3 AST 36 ALT 21 Alkaline Phosphatase 96 Troponin I 0.026 0.029 0.024 NT-Pro-B Natriuret Pep 3290 H Total Protein 8.1 Albumin 4.2 Blood Type A Positive Antibody Screen Negative 08/12/25 07:15 WBC 3.8 L RBC 4.38 Hgb 11.1 L Hct 35.6 L MCV 81.3 MCH 25.3 L MCHC 31.2 L RDW 28.5 H Plt Count 180 MPV 9.8 Immature Gran % (Auto) Neut % (Auto) Lymph % (Auto) [place] % (Auto) Eos % (Auto) Baso % (Auto) Lymph # (Auto) [place] # (Auto) Eos # (Auto) Baso # (Auto) Abs Immat Gran (auto) Absolute Neuts (auto) Absolute Nucleated RBC Band Neutrophils % Nucleated RBC % Platelet Estimate % Immature Plt Fraction 3.0 Hypochromasia Anisocytosis Target Cells Schistocytes Sodium Potassium Chloride Carbon Dioxide Anion Gap BUN Creatinine Estim Creat Clear Calc Estimated GFR Glucose Calcium Magnesium Total Bilirubin AST ALT Alkaline Phosphatase Troponin I NT-Pro-B Natriuret Pep Total Protein Albumin Blood Type Antibody Screen Quality VTE Prophylaxis VTE prophylaxis: pharmacologic ordered (Restart Eliquis) Hospitalist MIPS Advance Care Plan I have confirmed that the patient's Advanced Care Plan is present, code status is documented, or surrogate decision maker is listed in patient medical record.: Yes Medication Reconciliation I have utilized all available resources to obtain, update and review the patients current medications (includes all prescriptions, OTC, herbals, cannabis, and nutritional supplements).: Yes
[2025-08-12] MEDS: MUPIROCIN 2% OINT 22 GM TUBE 1 APPLIC EACH NARE ×3 (11:53→16:38)
--- NOTE | 2025-08-12 12:06 | PM.CNCAR ---
Assessment and Plan Assessment and plan (1) Atrial fibrillation with RVR: Code(s): I48.91 - Unspecified atrial fibrillation Status: Acute (2) Cardiomyopathy: Code(s): I42.9 - Cardiomyopathy, unspecified Status: Acute Plan This is a 74-year-old lady with a history of nonischemic cardiomyopathy and persistent atrial fibrillation who is a patient of the Cardiology group up in [place]. Fortunately I was able to get on the electronic record from my office and review the details as I outlined in my note above. She is known to have chronic/persistent atrial fibrillation and is being managed with the medical regimen mentioned above as well as for her nonischemic dilated cardiomyopathy. Other than interrupting her anticoagulation because of epistaxis the remainder of her medical regimen should be continued. Her epistaxis has been stopped so I do not believe she needs to remain at [facility] much longer. I would recommend resuming the medications that I will and in my note. Her workup at has been completed at [facility] and does not have to be repeated all at at this hospital. I will not plan on follow-up in our office since she is already established with the other Cardiology group in [place]. Fabián Ambrose MD [facility] History of Present Illness History of Present Illness Consult date/time: 08/12/25 12:06 Reason For Visit: atrial fibrillation w/rapid ventricular response, Narrative: This is a 74-year-old lady I am seeing at the request of the hospitalist because of atrial fibrillation. She is unknown to me but is known to the Cardiology group up by [facility]. She came into the hospital here at [place] because of epistaxis requiring emergency room treatment and discontinuance of her apixaban. The patient apparently is a poor historian regarding her medical history and none of her previous history was she able to communicate coherently to the hospital staff here. She feels well at this time and does not have any significant complaints other than exertional shortness of breath which is not a new problem. The chart that I was able to look at from the electronic records indicate that she has recently been found to have a nonischemic cardiomyopathy. She presented with DD atrial fibrillation and decompensated heart failure in the summer of 2024. Her evaluation eventually will lead to left heart catheterization that was done at [facility] July 20, 2025. She was found to have no significant coronary artery disease and left ventricular systolic function with an ejection fraction of about 30%. Since the diagnosis she has been in atrial fibrillation as well. They have been managing the patient with amiodarone as well as guideline directed medical therapy for atrial fibrillation and systemic anticoagulation with apixaban. She is not on any of these medications now because the staff here at [facility] do not have a medication list. She was discharged from [facility] because of some shortness of breath an acceleration in her atrial fibrillation she was discharged on July 27. The patient has a life vest device because of her low ejection fraction at the time of that admission the life vest device had also delivered a shock which in evaluation was in response to rapid atrial fib. Her medications according to the recent discharge summary include amiodarone 200 mg twice daily, apixaban 5 mg twice daily, carvedilol 6.25 mg twice daily, atorvastatin 10 mg daily Jardiance 10 mg daily iron sulfate 325 mg daily peer was [place] 20 mg daily, Entresto 24/26 mg twice daily spironolactone 25 mg daily and Zoloft 25 mg daily. Follow-up with her physicians in [place] is on the schedule. Review of Systems Constitutional: Constitutional: Reports lethargy Eyes: Eyes: Reports no additional eye complaints ENT: Reports system reviewed and no additional complaints, except as documented Cardiovascular: Cardiovascular: Reports no additional cardiovascular complaints Respiratory: Respiratory: Reports dyspnea on exertion Gastrointestinal: Comments: Nausea following meals Musculoskeletal: Musculoskeletal: Reports no additional musculoskeletal complaints Integumentary/Breasts: Skin/Breast: Reports system reviewed and no additional complaints, except as docu Neurologic: Comments: Alert and oriented x3 Endocrine: Endocrine: Reports no additional endocrine complaints Hematologic/Lymphatic: Hematologic/Lymphatic: Reports no additional hematologic/lymphatic complaints Allergic/Immunologic: Allergic/Immunologic: Reports no additional allergic/immunologic complaints [facility] Past Medical History Medical History (Updated 08/12/25 @ 12:14 by Fabián Ambrose MD) Anemia Chronic venous stasis Hypertension CAD (coronary artery disease) Congestive heart failure Surgical History Surgical History (Updated 08/12/25 @ 04:47 by Gris Sierra APRN) S/P debridement Lower extremities H/O heart artery stent Family History Family History (Updated 08/12/25 @ 04:49 by Gris Sierra APRN) Mother Heart disease Social History Social History (Updated 08/12/25 @ 04:50 by Gris Sierra, C.O.D. BILLER) Social History: The patient stated that she had 3 sons and 1 daughter. She currently lives with the 1 daughter. She recently moved here from [place]. 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 The patient stated that she never smoked. She is . Code status: Full code Smoking status: Never smoker Alcohol intake: former Substance use: never Substance use type: does not use Lack of Transportation: No Lack of Food: Never True Current Housing: I Have Housing Concerned About Future Housing: No Difficulty Paying Gas/Electric Bills: No Difficulty Paying for Meds: No Currently Unemployed: No Education: High School Diploma/GED Difficulty w/ Childcare or Family Care: No Spiritual care concerns: No Meds Home Medications and Allergies Home Medications ?Medication ?Instructions ?Recorded ?Confirmed ?Type clindamycin HCl 300 mg capsule 300 mg PO Q6H 10 days #40 caps 10/27/24 Rx hydrocodone 5 mg-acetaminophen 325 1 tablet PO Q6H PRN pain 3 days 10/27/24 Rx mg tablet #12 tabs clindamycin HCl 300 mg capsule 300 mg PO Q6H 10 days #40 caps 07/10/25 Rx (Cleocin HCl) nystatin 100,000 unit/gram topical 1 applic topical BID #30 grams 07/10/25 Rx powder Allergies Allergy/AdvReac Type Severity Reaction Status Date / Time No Known Allergies Allergy Verified 08/11/25 23:39 Vital Signs Vital Signs - 24 hr 08/11/25 18:39 08/11/25 19:13 08/11/25 19:15 Temperature 36.5 C Pulse Rate 150 H 137 H 134 H Respiratory Rate 12 29 H 22 H Blood Pressure 170/118 H Pulse Oximetry 100 100 Oxygen Delivery 08/11/25 19:16 08/11/25 19:30 08/11/25 19:31 Temperature Pulse Rate 133 H 129 H 88 Respiratory Rate 20 20 16 Blood Pressure 159/96 H 156/88 H Pulse Oximetry 100 99 99 Oxygen Delivery 08/11/25 19:41 08/11/25 19:45 08/11/25 19:48 Temperature Pulse Rate 128 H 128 H 132 H Respiratory Rate 25 H 22 H Blood Pressure 157/82 H Pulse Oximetry 100 100 Oxygen Delivery 08/11/25 20:00 08/11/25 20:01 08/11/25 20:15 Temperature Pulse Rate 71 110 H 62 Respiratory Rate 16 23 H 21 H Blood Pressure 127/77 Pulse Oximetry 100 99 100 Oxygen Delivery 08/11/25 20:21 08/11/25 20:30 08/11/25 20:41 Temperature Pulse Rate 120 H 67 66 Respiratory Rate 24 H 22 H 21 H Blood Pressure 131/91 H 135/102 H Pulse Oximetry 99 100 100 Oxygen Delivery 08/11/25 20:45 08/11/25 21:00 08/11/25 21:01 Temperature Pulse Rate 67 75 Respiratory Rate 16 23 H Blood Pressure 152/92 H Pulse Oximetry 99 100 Oxygen Delivery 08/11/25 21:05 08/11/25 21:15 08/11/25 21:21 Temperature Pulse Rate 68 71 124 H Respiratory Rate 19 20 Blood Pressure 152/92 H 151/102 H Pulse Oximetry 100 Oxygen Delivery 08/11/25 21:30 08/11/25 21:41 08/11/25 21:45 Temperature Pulse Rate 69 123 H 94 Respiratory Rate 20 24 H 29 H Blood Pressure 147/101 H Pulse Oximetry 100 100 100 Oxygen Delivery 08/11/25 22:00 08/11/25 22:01 08/11/25 22:04 Temperature 36.6 C Pulse Rate 124 H 123 H Respiratory Rate 22 H 20 Blood Pressure 154/107 H Pulse Oximetry 99 100 Oxygen Delivery 08/11/25 22:15 08/11/25 22:21 08/11/25 22:30 Temperature Pulse Rate 127 H 76 124 H Respiratory Rate 21 H 16 21 H Blood Pressure 150/96 H Pulse Oximetry 99 99 100 Oxygen Delivery 08/11/25 22:45 08/11/25 22:46 08/11/25 23:13 Temperature Pulse Rate 120 H 75 73 Respiratory Rate 19 18 16 Blood Pressure 151/93 H 151/93 H Pulse Oximetry 100 100 99 Oxygen Delivery 08/11/25 23:39 08/12/25 00:00 08/12/25 00:00 Temperature 36.4 C Pulse Rate 70 125 H 125 H Respiratory Rate 21 H 21 H Blood Pressure 149/91 H Pulse Oximetry 100 100 Oxygen Delivery Room Air 08/12/25 00:00 08/12/25 02:00 08/12/25 02:00 Temperature Pulse Rate 120 H 64 62 Respiratory Rate Blood Pressure 149/91 H 142/62 H Pulse Oximetry Oxygen Delivery 08/12/25 02:10 08/12/25 02:15 08/12/25 02:30 Temperature Pulse Rate 64 60 58 L Respiratory Rate Blood Pressure 142/64 H Pulse Oximetry Oxygen Delivery 08/12/25 03:24 08/12/25 03:24 08/12/25 03:30 Temperature Pulse Rate 58 L 58 L 58 L Respiratory Rate 21 H Blood Pressure Pulse Oximetry 100 Oxygen Delivery Room Air 08/12/25 04:00 08/12/25 05:36 08/12/25 07:38 Temperature 36.4 C L Pulse Rate 61 108 H Respiratory Rate 17 Blood Pressure 139/78 Pulse Oximetry 100 99 Oxygen Delivery Room Air 08/12/25 08:00 08/12/25 08:00 08/12/25 08:05 Temperature 36.8 C Pulse Rate 73 73 76 Respiratory Rate 18 18 Blood Pressure 159/89 H Pulse Oximetry 100 100 Oxygen Delivery Room Air 08/12/25 10:00 Temperature Pulse Rate 105 H Respiratory Rate Blood Pressure Pulse Oximetry Oxygen Delivery Exam Const: Other: Very pleasant black female appearing her stated age enjoying her lunch no distress HENMT: Mouth: Yes moist mucous membranes Eyes: Sclera: sclerae normal Neck: Neck: supple and no JVD Resp: Effort & Inspection: normal respiratory effort Auscultation: clear to auscultation bilaterally Cardio: Rate: regular rate Rhythm: abnormal rhythm irregularly irregular GI: GI Palp: Yes Soft to palpation Auscultation: normal bowel sounds Skin: General skin exam: normal color Neuro: Other: Alert and oriented x3 Extrem: Other: No edema Results Labs and Meds 08/12/25 07:15 08/12/25 03:07 Lab results: Cardiac Enzymes 08/11/25 08/11/25 08/12/25 Range/Units 19:39 22:45 03:07 AST 36 (14-36) U/L Troponin I 0.026 0.029 0.024 (0.000-0.034) ng/mL CBC 08/11/25 08/12/25 08/12/25 Range/Units 19:39 03:07 07:15 WBC 4.0 L 4.5 3.8 L (4.5-10.0) K/mm3 RBC 4.24 3.92 L 4.38 (4.2-5.4) M/mm3 Hgb 11.0 L 10.1 L 11.1 L (12.0-15.0) g/dL Hct 34.6 L 31.9 L 35.6 L (37.0-47.0) % Plt Count 190 177 180 (150-375) k/mm3 Lymph # (Auto) 1.85 2.14 (0.9-3.2) K/mm3 [place] # (Auto) 0.3 0.5 (0.1-0.6) K/mm3 Eos # (Auto) 0.1 0.1 (0-0.3) K/mm3 Baso # (Auto) 0.0 0.0 (0.0-0.1) K/mm3 Comprehensive Metabolic Panel 08/11/25 08/12/25 Range/Units 19:39 03:07 Sodium 138 138 (137-145) mmol/L Potassium 3.2 L 3.4 (3.4-5.0) mmol/L Chloride 107 110 H (98-107) mmol/L Carbon Dioxide 23 20 L (22-30) mmol/L BUN 14 D 13 (7-17) mg/dL Creatinine 1.06 H 0.92 (0.7-1.0) mg/dL Glucose 103 134 H (65-110) mg/dL Calcium 8.8 8.8 (8.4-10.2) mg/dL AST 36 (14-36) U/L ALT 21 (6-35) U/L Alkaline Phosphatase 96 (38-126) U/L Total Protein 8.1 (6.3-8.2) g/dL Albumin 4.2 (3.5-5.1) g/dL Intake and Output 08/11/25 08/12/25 08/12/25 23:59 07:59 15:59 Intake Total 37.5 240 Balance 37.5 240 Intake: IV 37.5 dilTIAZem 100 MG/100 ML 100 mg 37.5 In 100 ml @ 0 mls/hr IV CONT . Q0M STA Rx#:[id number] Oral 0 240 Other: # Unmeasured Voids 3 Number of Bowel Movements Today 0 Patient Weight 08/12/25 23:59 Weight 75.9 kg
--- NOTE | 2025-08-12 16:10 | PC.NURSE ---
Patient family member arrived to the floor very upset. This RN was in the room at the time of the family members arrival and overheard her speaking to the patient, unaware of what she was upset about. This RN finished the conversation with bed 2 and went directly to bed 1 to see what was going on. The family member stated Where is the vest my mom had on that they took off last night? This RN explained to the family member that the patient has the vest on, and then checked the patient, as we had discussed removing the vest previously to make sure that she didn't take it off as we had communicated about. The family member stated that Evan has been calling the hospital all day and no one is calling them back. This RN stated that we had not received any phone calls from [facility]. The patient family member appeared to be very upset, looked away from this RN and wanted to speak to a residence supervisor. This RN called the residence supervisor to come and speak to the family member. Evan was contacted and stated that they have not made any calls to the patient or patient family members and that there is no documentation that anything is wrong. After the warehouse pricing and inventory clerk left this RN was called into the room to discuss plan of care. She immediately stated I wish I we can start over. This RN stated of course, no issues. This RN reviewed the salena on of the day including medications and activity with the patient and family. Verbalizes understanding at this time. Patient sitting up on the side of the bed, in good spirits and no distress.
[2025-08-12] MEDS: APIXABAN 5 MG TABLET PO (17:11)
--- NOTE | 2025-08-12 17:16 | WPDPROCEDUR ---
Procedures Other Procedures Procedure 1: Other Procedure: Right-sided nasopharyngoscopy. Verbal consent obtained. Nose anesthetized with Afrin and lidocaine. Rigid and flexible scope passed all the way to the nasopharynx. No active bleeding no clot no abnormal vasculature no telangiectatic vessels. Absolutely no source identified the patient's bleed. No clot or blood near the sphenopalatine artery. Patient tolerated the procedure very well.
--- NOTE | 2025-08-12 17:17 | WPDCN ---
Assessment and Plan Assessment and plan (1) Epistaxis: Code(s): R04.0 - Epistaxis Status: Acute Assessment and Plan: No source of bleeding identified. No signs of recent bleed. Would recommend mupirocin ointment 3-4 times per day in the bilateral nasal passages as well as nasal space saline spray several times per day. I would like the patient to follow up with me Sunday to repeat endoscopy after she restarts her anticoagulation. Okay to restart anticoagulation from my standpoint. If the patient bleeds, and it is not easily stopped with anterior nasal pressure, I would recommend 2 large course of Afrin and repeat nasal pressure. If the patient continues to bleed please call me. HPI Data of Consult Date/Time: 08/12/25 17:17 Requesting Physician: Edwin Tatum MD Primary Care Provider: [employer] SUPERVISOR PHYSICIAN Consult Narrative Reason for consult: Right-sided epistaxis Narrative: Rylee York is a 74 year old female with right-sided epistaxis for several days. She reports was fairly significant. No bleeding in the past 24 hours other than she sneezed out a large clot. Review of Systems Review of Systems: All systems reviewed & are unremarkable except as noted in HPI and below PMFSH Past Medical History Medical History (Updated 08/12/25 @ 12:14 by Fabián Ambrose MD) Anemia Chronic venous stasis Hypertension CAD (coronary artery disease) Congestive heart failure Surgical History Surgical History (Updated 08/12/25 @ 04:47 by Gris Sierra APRN) S/P debridement Lower extremities H/O heart artery stent Family History Family History (Updated 08/12/25 @ 04:49 by Gris Sierra APRN) Mother Heart disease Social History Social History (Updated 08/12/25 @ 04:50 by Gris Sierra APRN) Social History: The patient stated that she had 3 sons and 1 daughter. She currently lives with the 1 daughter. She recently moved here from [place]. 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 The patient stated that she never smoked. She is . Code status: Full code Smoking status: Never smoker Alcohol intake: former Substance use: never Substance use type: does not use Lack of Transportation: No Lack of Food: Never True Current Housing: I Have Housing Concerned About Future Housing: No Difficulty Paying Gas/Electric Bills: No Difficulty Paying for Meds: No Currently Unemployed: No Education: High School Diploma/GED Difficulty w/ Childcare or Family Care: No Spiritual care concerns: No Meds Home Medications and Allergies Home Medications ?Medication ?Instructions ?Recorded ?Confirmed ?Type clindamycin HCl 300 mg capsule 300 mg PO Q6H 10 days #40 caps 10/27/24 Rx hydrocodone 5 mg-acetaminophen 325 1 tablet PO Q6H PRN pain 3 days 10/27/24 Rx mg tablet #12 tabs clindamycin HCl 300 mg capsule 300 mg PO Q6H 10 days #40 caps 07/10/25 Rx (Cleocin HCl) nystatin 100,000 unit/gram topical 1 applic topical BID #30 grams 07/10/25 Rx powder amiodarone 200 mg tablet 200 mg PO Q12H 08/12/25 08/12/25 History apixaban 5 mg tablet (Eliquis) 5 mg PO BID 08/12/25 08/12/25 History atorvastatin 10 mg tablet 10 mg PO QPM 08/12/25 08/12/25 History carvedilol 6.25 mg tablet (Coreg) 6.25 mg PO BID 08/12/25 08/12/25 History empagliflozin 10 mg tablet 10 mg PO DAILY 08/12/25 08/12/25 History (Jardiance) ferrous sulfate 325 mg (65 mg 325 mg PO DAILY 08/12/25 08/12/25 History iron) tablet (FeroSul) furosemide 20 mg tablet 20 mg PO DAILY 08/12/25 08/12/25 History sacubitril 24 mg-valsartan 26 mg 1 tablet PO BID 08/12/25 08/12/25 History tablet (Entresto) sertraline 25 mg tablet (Zoloft) 25 mg PO DAILY 08/12/25 08/12/25 History spironolactone 25 mg tablet 25 mg PO DAILY 08/12/25 08/12/25 History (Aldactone) Allergies Allergy/AdvReac Type Severity Reaction Status Date / Time No Known Allergies Allergy Verified 08/11/25 23:39 Vital Signs Vital Signs - 24 hr 08/11/25 18:39 08/11/25 19:13 08/11/25 19:15 Temperature 36.5 C Pulse Rate 150 H 137 H 134 H Respiratory Rate 12 29 H 22 H Blood Pressure 170/118 H Pulse Oximetry 100 100 Oxygen Delivery 08/11/25 19:16 08/11/25 19:30 08/11/25 19:31 Temperature Pulse Rate 133 H 129 H 88 Respiratory Rate 20 20 16 Blood Pressure 159/96 H 156/88 H Pulse Oximetry 100 99 99 Oxygen Delivery 08/11/25 19:41 08/11/25 19:45 08/11/25 19:48 Temperature Pulse Rate 128 H 128 H 132 H Respiratory Rate 25 H 22 H Blood Pressure 157/82 H Pulse Oximetry 100 100 Oxygen Delivery 08/11/25 20:00 08/11/25 20:01 08/11/25 20:15 Temperature Pulse Rate 71 110 H 62 Respiratory Rate 16 23 H 21 H Blood Pressure 127/77 Pulse Oximetry 100 99 100 Oxygen Delivery 08/11/25 20:21 08/11/25 20:30 08/11/25 20:41 Temperature Pulse Rate 120 H 67 66 Respiratory Rate 24 H 22 H 21 H Blood Pressure 131/91 H 135/102 H Pulse Oximetry 99 100 100 Oxygen Delivery 08/11/25 20:45 08/11/25 21:00 08/11/25 21:01 Temperature Pulse Rate 67 75 Respiratory Rate 16 23 H Blood Pressure 152/92 H Pulse Oximetry 99 100 Oxygen Delivery 08/11/25 21:05 08/11/25 21:15 08/11/25 21:21 Temperature Pulse Rate 68 71 124 H Respiratory Rate 19 20 Blood Pressure 152/92 H 151/102 H Pulse Oximetry 100 Oxygen Delivery 08/11/25 21:30 08/11/25 21:41 08/11/25 21:45 Temperature Pulse Rate 69 123 H 94 Respiratory Rate 20 24 H 29 H Blood Pressure 147/101 H Pulse Oximetry 100 100 100 Oxygen Delivery 08/11/25 22:00 08/11/25 22:01 08/11/25 22:04 Temperature 36.6 C Pulse Rate 124 H 123 H Respiratory Rate 22 H 20 Blood Pressure 154/107 H Pulse Oximetry 99 100 Oxygen Delivery 08/11/25 22:15 08/11/25 22:21 08/11/25 22:30 Temperature Pulse Rate 127 H 76 124 H Respiratory Rate 21 H 16 21 H Blood Pressure 150/96 H Pulse Oximetry 99 99 100 Oxygen Delivery 08/11/25 22:45 08/11/25 22:46 08/11/25 23:13 Temperature Pulse Rate 120 H 75 73 Respiratory Rate 19 18 16 Blood Pressure 151/93 H 151/93 H Pulse Oximetry 100 100 99 Oxygen Delivery 08/11/25 23:39 08/12/25 00:00 08/12/25 00:00 Temperature 36.4 C Pulse Rate 70 125 H 125 H Respiratory Rate 21 H 21 H Blood Pressure 149/91 H Pulse Oximetry 100 100 Oxygen Delivery Room Air 08/12/25 00:00 08/12/25 02:00 08/12/25 02:00 Temperature Pulse Rate 120 H 64 62 Respiratory Rate Blood Pressure 149/91 H 142/62 H Pulse Oximetry Oxygen Delivery 08/12/25 02:10 08/12/25 02:15 08/12/25 02:30 Temperature Pulse Rate 64 60 58 L Respiratory Rate Blood Pressure 142/64 H Pulse Oximetry Oxygen Delivery 08/12/25 03:24 08/12/25 03:24 08/12/25 03:30 Temperature Pulse Rate 58 L 58 L 58 L Respiratory Rate 21 H Blood Pressure Pulse Oximetry 100 Oxygen Delivery Room Air 08/12/25 04:00 08/12/25 05:36 08/12/25 07:38 Temperature 36.4 C L Pulse Rate 61 108 H Respiratory Rate 17 Blood Pressure 139/78 Pulse Oximetry 100 99 Oxygen Delivery Room Air 08/12/25 08:00 08/12/25 08:00 08/12/25 08:05 Temperature 36.8 C Pulse Rate 73 73 76 Respiratory Rate 18 18 Blood Pressure 159/89 H Pulse Oximetry 100 100 Oxygen Delivery Room Air 08/12/25 10:00 08/12/25 12:00 08/12/25 12:00 Temperature Pulse Rate 105 H 101 H 91 Respiratory Rate 18 Blood Pressure Pulse Oximetry 100 Oxygen Delivery Room Air 08/12/25 12:24 08/12/25 14:00 08/12/25 16:18 Temperature 37.1 C 36.8 C Pulse Rate 101 H 86 84 Respiratory Rate 18 20 Blood Pressure 132/37 L 146/94 H Pulse Oximetry 100 100 Oxygen Delivery Exam Narrative: Normal otolaryngologic examination see procedure note and the procedure complete right-sided nasal endoscopy and nasopharyngoscopy was performed. No source of the patient's bleeding identified pristine appearance of the nasal passage on the right. Results Labs 08/12/25 07:15 08/12/25 03:07 Labs: Short CBC 08/11/25 08/12/25 08/12/25 Range/Units 19:39 03:07 07:15 WBC 4.0 L 4.5 3.8 L (4.5-10.0) K/mm3 Hgb 11.0 L 10.1 L 11.1 L (12.0-15.0) g/dL Hct 34.6 L 31.9 L 35.6 L (37.0-47.0) % Plt Count 190 177 180 (150-375) k/mm3 BMP 08/11/25 08/12/25 19:39 03:07 Sodium 138 138 Potassium 3.2 L 3.4 Chloride 107 110 H Carbon Dioxide 23 20 L BUN 14 D 13 Creatinine 1.06 H 0.92 Glucose 103 134 H Calcium 8.8 8.8 Cardiac Enzymes 08/11/25 08/11/25 08/12/25 Range/Units 19:39 22:45 03:07 Troponin I 0.026 0.029 0.024 (0.000-0.034) ng/mL Liver Function 08/11/25 Range/Units 19:39 Total Bilirubin 1.3 (0.2-1.3) mg/dL AST 36 (14-36) U/L ALT 21 (6-35) U/L Alkaline Phosphatase 96 (38-126) U/L Albumin 4.2 (3.5-5.1) g/dL
[2025-08-12] MEDS: ATORVASTATIN 10 MG TABLET PO (20:48)
[2025-08-12] MEDS: SACUBITRIL/VALSARTAN 24-26 MG TABLET 1 TAB PO (20:48)
[2025-08-12] MEDS: AMIODARONE HCL 200 MG TABLET PO (20:48)
[2025-08-12] MEDS: OLANZapine 5 MG, WATER, STERILE FOR INJECTION 2.1 ML IM (22:14)
[2025-08-13] VITALS (12 sets, daily range): BP systolic 141–152; BP diastolic 80–99; PULSE 68–137; RESP 16–20; TEMP 36.3–36.6; O2SAT 98–100
[2025-08-13 04:29] LABS: Hematocrit 35.4 % (37.0-47.0); Hemoglobin 11.0 g/dL (12.0-15.0); Immature Platelet Fraction Pct 3.1 % (0.9-11.2); Mean Corpuscular HGB Conc 31.1 g/dl (32-36); Mean Corpuscular Hemoglobin 25.6 pg (26-34); Mean Corpuscular Volume 82.5 fl (80-100); Platelet Count Result 176 k/mm3 (150-375); Red Blood Count 4.29 M/mm3 (4.2-5.4); White Blood Count 4.4 K/mm3 (4.5-10.0)
[2025-08-13 04:35] LABS: Anion Gap 9 mmol/L (4-12); Blood Urea Nitrogen 12 mg/dL (7-17); Calcium 9.1 mg/dL (8.4-10.2); Carbon Dioxide 22 mmol/L (22-30); Chloride 110 mmol/L (98-107); Estimated CRCL calculation 44 ml/min; Estimated Glomerular Filt Rate 57; Glucose 107 mg/dL (65-110); Potassium 3.7 mmol/L (3.4-5.0); Sodium 141 mmol/L (137-145)
[2025-08-13] MEDS: SACUBITRIL/VALSARTAN 24-26 MG TABLET 1 TAB PO (09:26)
[2025-08-13] MEDS: APIXABAN 5 MG TABLET PO (09:26)
[2025-08-13] MEDS: SERTRALINE HCL 25 MG TABLET PO (09:26)
[2025-08-13] MEDS: EMPAGLIFLOZIN 10 MG TABLET PO (09:26)
[2025-08-13] MEDS: SPIRONOLACTONE 25 MG TABLET PO (09:27)
[2025-08-13] MEDS: FERROUS SULFATE 325 MG TABLET BY MOUTH (09:27)
[2025-08-13] MEDS: AMIODARONE HCL 200 MG TABLET PO (09:27)
[2025-08-13] MEDS: FUROSEMIDE 20 MG TABLET PO (09:27)
[2025-08-13] MEDS: MUPIROCIN 2% OINT 22 GM TUBE 1 APPLIC EACH NARE ×2 (09:28→12:04)
[2025-08-13] MEDS: OXYMETAZOLINE HCL 0.05% NAS 15 ML BTL (*BKC) 1 SPRAY NASAL (12:00)
--- NOTE | 2025-08-13 12:37 | PC.NURSE ---
This RN notified Dr. Reina that pt continues to have nose bleeds, even after RN has followed all recommendations listed in Dr. Reina's note (hold anterior nasal pressure, administer Large dose of Afrin if no resolution from pressure). Dr. Reina stated Let me come look at her and see what else we can do. She may just need a rhino rocket, and follow-up outpatient. This RN updated hospitalist (Dr. Sheehan) with pt's conditions. I'm going to update the daughter on the patient. I will see if she is ok with stopping the Eliquis. Dr. Shehean updated this RN The daughter doesn't want to stop the Eliquis due to risk of stroke secondary to pt's Afib. Please update Dr. Reina when he comes to see the patient and let me know what the plan of care is. If she needs to be transferred to a tertiary care hospital please have him call me, and I will initiate the transfer. RN also received clarification if Dr. Sheehan wanted a repeat H&H. New orders received and entered by this RN.
--- NOTE | 2025-08-13 12:38 | PM.IMPN ---
Progress Note: A&P Assessment and Plan (1) Atrial fibrillation with RVR: Code(s): I48.91 - Unspecified atrial fibrillation Status: Acute Assessment and Plan: -the patient is not aware of her medication list. However she is aware that she is on on Eliquis. Her daughter is bringing in the home medications so that we can verify them in get her restarted on her home medications. -the patient typically goes to [facility]. I did ask for records from the railroad firer for review. -the patient has been going in and out of AFib throughout the night. Sometimes she has bradycardia and with activity her heart rate gets of the 130s and she is back in AFib. -she had been on a Cardizem drip but is now stopped due to the bradycardia. -resume home medications when able including Eliquis. Her blood new nose has stopped. -she can follow-up with her railroad firer at [facility]. (2) Congestive heart failure: Code(s): I50.9 - Heart failure, unspecified Status: Acute Assessment and Plan: -resume home medications when they are verified. -the patient has a LifeVest with her. -cardiology records have been requested. -no fluid overload noted. -current BNP is 3290. (3) Epistaxis: Code(s): R04.0 - Epistaxis Status: Acute Assessment and Plan: -this was stopped in the emergency room with pressure. Resume Eliquis when able to verify her dosage. -H&H appears to be stable. (4) Hypertension: Code(s): I10 - Essential (primary) hypertension Status: Acute Assessment and Plan: -her blood pressure was initially elevated. She is currently 139/79 (5) CAD (coronary artery disease): Code(s): I25.10 - Atherosclerotic heart disease of platinum coronary artery without angina pectoris Status: Acute Assessment and Plan: -the patient stated that she has 1 cardiac stent. -[facility]. (6) Chronic venous stasis: Code(s): I87.8 - Other specified disorders of veins Status: Acute Assessment and Plan: -the patient stated that she is had her lower extremities debrided the past. She stated that [facility] and soon they will be debriding her right medial lower extremity. -wound care consultation was placed. Further examination and recommendations greatly appreciated. -the wounds do not appear to be infected at this time. It appears that the patient has been placed on clindamycin in the past but is not currently on any antibiotics. (7) Anemia: Code(s): D64.9 - Anemia, unspecified Status: Acute Assessment and Plan: -at H&H is at her baseline. Even with the epistaxis her H&H remained the same. (8) Hypokalemia: Code(s): E87.6 - Hypokalemia Status: Acute Assessment and Plan: -unsure if the patient is on diuretics at home. -check magnesium levels as well. -supplement when necessary. Her current potassium is 3.2. Subjective Date/time seen: 08/13/25 12:38 Interval history: Patient was admitted in the setting of nosebleed. Consulted ENT and appreciate recommendation on restarting Eliquis. Cardiology consulted. According to the Cardiology patient has a history of nonischemic cardiomyopathy and persistent atrial fibrillation and follows up with Cardiology at [place]. Her evaluation eventually will lead to left heart catheterization that was done at [facility] July 20, 2025. She was found to have no significant coronary artery disease and left ventricular systolic function with an ejection fraction of about 30%. Since the diagnosis she has been in atrial fibrillation as well. They have been managing the patient with amiodarone as well as guideline directed medical therapy for atrial fibrillation and systemic anticoagulation with apixaban. No more episodes of epistaxis will start the evening dose of Eliquis 08/13: Patient had 4 episodes of epistaxis from this morning. Patient Eliquis restarted yesterday night. Had a long discussion with her daughter. She wants to continue Eliquis regardless of the bleeding.Will await for ENT recommendations. Review of Systems Constitutional: Constitutional: Reports as per HPI and Reports no additional constitutional complaints Eyes: Eyes: Reports as per HPI and Reports no additional eye complaints ENT: Reports system reviewed and no additional complaints, except as documented and Reports Normal hearing present Cardiovascular: Cardiovascular: Reports no additional cardiovascular complaints Respiratory: Respiratory: Reports as per HPI and Reports no additional respiratory complaints Gastrointestinal: Gastrointestinal: Reports as per HPI and Reports no additional gastrointestinal complaints Genitourinary: Genitourinary: Reports no additional female genitourinary complaints Musculoskeletal: Musculoskeletal: Reports no additional musculoskeletal complaints Integumentary/Breasts: Skin/Breast: Reports system reviewed and no additional complaints, except as docu Neurologic: Reports system reviewed and no additional complaints, except as documented and Reports Normal hearing present Psychiatric: Psychiatric: Reports no additional psychiatric complaints and Reports as per HPI Hematologic/Lymphatic: Hematologic/Lymphatic: Reports no additional hematologic/lymphatic complaints Allergic/Immunologic: Allergic/Immunologic: Reports no additional allergic/immunologic complaints Exam Const: General: cooperative, healthy appearing, comfortable, no acute distress, well developed, awake, Physically active, average body habitus and well nourished Nutritional Appearance: average body habitus and well nourished Orientation/consciousness: oriented to person, oriented to place, oriented to time and patient oriented x3 Limitations: no limitations HENMT: Head: normal to inspection, No palpable skull fracture present, normocephalic, atraumatic and abrasion Ears: external ears normal Throat: posterior oropharynx normal Other: And no blood noted to either nostril. No blood noted in the posterior pharynx. Patient is slightly hard of hearing. Eyes: General: appearance normal, both eyes and all related structures Alignment and Position: alignment normal Periorbital: periorbital findings normal Eyelids: eyelids normal EOM: EOMs intact bilaterally Neck: Neck: normal visual inspection, full ROM and no lymphadenopathy Chest: Chest palpation & inspection: normal inspection of the chest Resp: Effort & Inspection: normal respiratory effort Auscultation: clear to auscultation bilaterally Percussion: percussion normal Cardio: Palpation: normal PMI Rhythm: abnormal rhythm Heart sounds: S1 normal heart sound present and S2 normal heart sound present Peripheral pulses: Peripheral pulses 2+ throughout Other: Patient is going in out of AFib. GI: Inspection: normal to inspection Auscultation: normal bowel sounds Rectal Exam: deferred Skin: General skin exam: normal color Lesions: no lesions Rashes: no rashes Trauma: no lacerations or abrasions Hair: normal Nails: normal Other: Patient has multiple ulcerated areas to bilateral lower extremities. Approximately 2 x 3. This is chronic. Neuro: General: oriented to person, oriented to place, oriented to time and patient oriented x3 Cranial nerves: Yes Normal hearing present Cognition (Neuro): normal cognition Speech: normal speech Gait exam (Neuro): Normal gait present Motor exam (neuro): 5/5 motor strength present throughout Sensory Exam: normal sensation Other: Patient is a poor historian. Extrem: General: normal to inspection Right upper extremity: normal to inspection and shoulder/upper arm Left upper extremity: normal to inspection and shoulder/upper arm Right lower extremity: normal to inspection Left lower extremity: normal to inspection Other: Multiple ulcerated areas to bilateral lower extremities. No drainage noted. No erythema around the ulcerated areas. Psych: Appearance: grossly normal Mental Status: mental status grossly normal Speech and movement: Normal speech and movement present Affect: normal affect Attitude: cooperative Thought process: Normal thought process present Objective Data Vital Signs Vital Signs: Vital Signs - 24 hr 08/12/25 14:00 08/12/25 16:00 08/12/25 16:00 Temperature Pulse Rate 86 84 98 Respiratory Rate 20 Blood Pressure Pulse Oximetry 100 Oxygen Delivery Room Air 08/12/25 16:18 08/12/25 17:56 08/12/25 19:56 Temperature 98.2 F 97.7 F Pulse Rate 84 100 132 H Respiratory Rate 20 18 Blood Pressure 146/94 H 158/104 H Pulse Oximetry 100 100 Oxygen Delivery 08/12/25 20:00 08/12/25 20:00 08/12/25 20:48 Temperature Pulse Rate 133 H 133 H 98 Respiratory Rate 18 Blood Pressure Pulse Oximetry 100 Oxygen Delivery Room Air 08/12/25 20:48 08/12/25 22:00 08/13/25 00:00 Temperature Pulse Rate 98 98 92 Respiratory Rate 18 Blood Pressure Pulse Oximetry 100 Oxygen Delivery Room Air 08/13/25 00:00 08/13/25 00:00 08/13/25 02:00 Temperature Pulse Rate 92 92 79 Respiratory Rate Blood Pressure Pulse Oximetry Oxygen Delivery 08/13/25 04:00 08/13/25 04:00 08/13/25 04:17 Temperature 97.8 F Pulse Rate 137 H 137 H 127 H Respiratory Rate 16 16 Blood Pressure 151/80 H Pulse Oximetry 99 99 Oxygen Delivery Room Air 08/13/25 06:00 08/13/25 08:00 08/13/25 08:00 Temperature 97.7 F Pulse Rate 68 132 H 77 Respiratory Rate 18 18 Blood Pressure 141/92 H Pulse Oximetry 98 98 Oxygen Delivery Room Air 08/13/25 08:00 08/13/25 09:26 08/13/25 09:27 Temperature Pulse Rate 76 76 77 Respiratory Rate Blood Pressure Pulse Oximetry Oxygen Delivery 08/13/25 10:00 08/13/25 12:00 08/13/25 12:00 Temperature 97.4 F L Pulse Rate 81 78 78 Respiratory Rate 18 18 Blood Pressure 147/85 H Pulse Oximetry 98 98 Oxygen Delivery Room Air 08/13/25 12:00 Temperature Pulse Rate 76 Respiratory Rate Blood Pressure Pulse Oximetry Oxygen Delivery Intake/Output Intake/Output: Intake & Output 08/10/25 08/11/25 08/12/25 08/13/25 23:59 23:59 23:59 23:59 Intake Total 1207.5 1000 Balance 1207.5 1000 Meds/Results Medications: Active Medications Generic Name Dose Route Start Last Admin Trade Name Freq PRN Reason Stop Dose Admin Amiodarone HCl 200 mg 08/12/25 21:00 08/13/25 09:27 Amiodarone Hcl 200 Mg Tablet PO 200 mg Q12HR DARNELL Administration Apixaban 5 mg 08/12/25 17:00 08/13/25 09:26 Apixaban 5 Mg Tablet PO 5 mg BID DARNELL Administration Atorvastatin Calcium 10 mg 08/12/25 21:00 08/12/25 20:48 Atorvastatin 10 Mg Tablet PO 10 mg HS DARNELL Administration Carvedilol 6.25 mg 08/12/25 21:00 08/13/25 09:26 Carvedilol 6.25 Mg Tablet PO 6.25 mg Q12HR DARNELL Administration Empagliflozin 10 mg 08/13/25 09:00 08/13/25 09:26 Empagliflozin 10 Mg Tablet PO 10 mg DAILY DARNELL Administration Ferrous Sulfate 325 mg 08/13/25 09:00 08/13/25 09:27 Ferrous Sulfate 325 Mg Tablet BY MOUTH 325 mg DAILY DARNELL Administration Furosemide 20 mg 08/13/25 09:00 08/13/25 09:27 Furosemide 20 Mg Tablet PO 20 mg DAILY DARNELL Administration Mupirocin 1 applic 08/12/25 09:00 08/13/25 12:04 Mupirocin 2% Oint 22 Gm Tube EACH NARE 08/15/25 09:01 1 applic TID DARNELL Administration Ondansetron HCl 4 mg 08/11/25 21:04 Ondansetron Inj 4 Mg/2 Ml Vial IV PUSH Q4H PRN Nausea Sacubitril/Valsartan 1 tab 08/12/25 21:00 08/13/25 09:26 Sacubitril/Valsartan 24-26 Mg Tablet PO 1 tab Q12HR DARNELL Administration Sertraline HCl 25 mg 08/13/25 09:00 08/13/25 09:26 Sertraline Hcl 25 Mg Tablet PO 25 mg DAILY DARNELL Administration Sodium Chloride 1 spray 08/12/25 09:01 Saline 0.65% Stephen Soln 44 Ml Btl NASAL Q6HR PRN Congestion Spironolactone 25 mg 08/13/25 09:00 08/13/25 09:27 Spironolactone 25 Mg Tablet PO 25 mg DAILY DARNELL Administration Radiology Results: ITS Impressions Chest X-Ray 08/11/25 21:01 IMPRESSION: 1. No acute pulmonary findings. Significant cardiomegaly and atherosclerotic aorta. Labs Labs: Laboratory Results - last 24 hr 08/13/25 04:00 WBC 4.4 L RBC 4.29 Hgb 11.0 L Hct 35.4 L MCV 82.5 MCH 25.6 L MCHC 31.1 L RDW 28.6 H Plt Count 176 MPV TNP % Immature Plt Fraction 3.1 Sodium 141 Potassium 3.7 Chloride 110 H Carbon Dioxide 22 Anion Gap 9 BUN 12 Creatinine 0.96 Estim Creat Clear Calc 44 Estimated GFR 57 L Glucose 107 Calcium 9.1 Quality VTE Prophylaxis VTE prophylaxis: pharmacologic ordered (Chuck Elam) Hospitalist [facility] Advance Care Plan I have confirmed that the patient's Advanced Care Plan is present, code status is documented, or surrogate decision maker is listed in patient medical record.: Yes Medication Reconciliation I have utilized all available resources to obtain, update and review the patients current medications (includes all prescriptions, OTC, herbals, cannabis, and nutritional supplements).: Yes
[2025-08-13 13:09] LABS: Hematocrit 36.6 % (37.0-47.0); Hemoglobin 11.5 g/dL (12.0-15.0); Immature Platelet Fraction Pct 3.1 % (0.9-11.2); Mean Corpuscular HGB Conc 31.4 g/dl (32-36); Mean Corpuscular Hemoglobin 25.8 pg (26-34); Mean Corpuscular Volume 82.2 fl (80-100); Platelet Count Result 199 k/mm3 (150-375); Red Blood Count 4.45 M/mm3 (4.2-5.4); White Blood Count 4.8 K/mm3 (4.5-10.0)
[2025-08-13] MEDS: MORPHINE SULFATE (*CRX) 4 MG/ML INJ 2 MG IV PUSH (13:43)
--- NOTE | 2025-08-13 15:06 | WPDPROCEDUR ---
Procedures Other Procedures Procedure 1: Other Procedure: Right-sided nasal endoscopy with debridement. As well as control of epistaxis with nasal packing. Verbal consent obtained. Afrin lidocaine applied to the right nasal passage. Active bleeding suctioned out the anterior septum is pristine. I suctioned out clot all the way to the sphenopalatine artery region. This is with the blood is emanating from. Patient tolerated the procedure very well. I had to place a rhino rocket and inflated with 15 cc of air to stop the bleeding. Patient reported pain but she did tolerate the packing as well.
--- NOTE | 2025-08-13 15:06 | PM.PNGS ---
Progress Note: A&P Assessment and Plan (1) Epistaxis: Code(s): R04.0 - Epistaxis Status: Acute Assessment and Plan: Rhino rocket placed, bleeding stopped with 15 cc of air. Reasonable to keep the patient 1 more night. If the daughter and patient feel as though they can manage the rhino rocket okay to discharge if there is no bleeding for several hours. I would recommend follow-up tomorrow Sunday for further evaluation, I am in the office all day. We need to contact the patient's innovation analyst to see if there is anything we can do regarding the blood thinner. Patient did not bleed when the blood that was held in immediately bled from the right sphenopalatine artery region in the blood thinner was resumed. Perhaps there is a different blood thinners or anticoagulation the patient can take. Perhaps we can decrease the dose a blood thinner. Again reasonable to keep the patient 1 more night but it the patient and daughter are adamant they can manage the rhino rocket should be okay to discharge. With any bleeding he should call me urgently as and inflate the rhino rocket with another 2-3 cc until the bleeding stops. They may need to place several year or cc of air. Subjective Subjective Date/Time Seen: 08/13/25 15:06 Interval history: Patient keep began bleeding this afternoon. ENT called urgently. Review of Systems Review of Systems: All systems reviewed & are unremarkable except as noted in HPI and below Exam Narrative: Brisk bleeding right-sided. Objective Data Vital Signs Vital Signs: Vital Signs - 24 hr 08/12/25 16:00 08/12/25 16:00 08/12/25 16:18 Temperature 36.8 C Pulse Rate 84 98 84 Respiratory Rate 20 20 Blood Pressure 146/94 H Pulse Oximetry 100 100 Oxygen Delivery Room Air 08/12/25 17:56 08/12/25 19:56 08/12/25 20:00 Temperature 36.5 C Pulse Rate 100 132 H 133 H Respiratory Rate 18 18 Blood Pressure 158/104 H Pulse Oximetry 100 100 Oxygen Delivery Room Air 08/12/25 20:00 08/12/25 20:48 08/12/25 20:48 Temperature Pulse Rate 133 H 98 98 Respiratory Rate Blood Pressure Pulse Oximetry Oxygen Delivery 08/12/25 22:00 08/13/25 00:00 08/13/25 00:00 Temperature Pulse Rate 98 92 92 Respiratory Rate 18 Blood Pressure Pulse Oximetry 100 Oxygen Delivery Room Air 08/13/25 00:00 08/13/25 02:00 08/13/25 04:00 Temperature Pulse Rate 92 79 137 H Respiratory Rate 16 Blood Pressure Pulse Oximetry 99 Oxygen Delivery Room Air 08/13/25 04:00 08/13/25 04:17 08/13/25 06:00 Temperature 36.6 C Pulse Rate 137 H 127 H 68 Respiratory Rate 16 Blood Pressure 151/80 H Pulse Oximetry 99 Oxygen Delivery 08/13/25 08:00 08/13/25 08:00 08/13/25 08:00 Temperature 36.5 C Pulse Rate 132 H 77 76 Respiratory Rate 18 18 Blood Pressure 141/92 H Pulse Oximetry 98 98 Oxygen Delivery Room Air 08/13/25 09:26 08/13/25 09:27 08/13/25 10:00 Temperature Pulse Rate 76 77 81 Respiratory Rate Blood Pressure Pulse Oximetry Oxygen Delivery 08/13/25 12:00 08/13/25 12:00 08/13/25 12:00 Temperature 36.3 C L Pulse Rate 78 78 76 Respiratory Rate 18 18 Blood Pressure 147/85 H Pulse Oximetry 98 98 Oxygen Delivery Room Air 08/13/25 14:00 Temperature Pulse Rate 87 Respiratory Rate Blood Pressure Pulse Oximetry Oxygen Delivery Intake/Output Intake/Output: Intake & Output 08/10/25 08/11/25 08/12/25 08/13/25 23:59 23:59 23:59 23:59 Intake Total 1207.5 1240 Balance 1207.5 1240 Meds/Results Medications: Active Medications Generic Name Dose Route Start Last Admin Trade Name Freq PRN Reason Stop Dose Admin Hydrocodone Bitart/Acetaminophen 1 tab 08/13/25 13:31 Hydrocodone/Acetaminophen (*Crx) 5-325 Mg Tablet PO Q4H PRN Pain Rated 4-6 Amiodarone HCl 200 mg 08/12/25 21:00 08/13/25 09:27 Amiodarone Hcl 200 Mg Tablet PO 200 mg Q12HR DARNELL Administration Apixaban 5 mg 08/12/25 17:00 08/13/25 09:26 Apixaban 5 Mg Tablet PO 5 mg BID DARNELL Administration Atorvastatin Calcium 10 mg 08/12/25 21:00 08/12/25 20:48 Atorvastatin 10 Mg Tablet PO 10 mg HS DARNELL Administration Carvedilol 6.25 mg 08/12/25 21:00 08/13/25 09:26 Carvedilol 6.25 Mg Tablet PO 6.25 mg Q12HR DARNELL Administration Empagliflozin 10 mg 08/13/25 09:00 08/13/25 09:26 Empagliflozin 10 Mg Tablet PO 10 mg DAILY DARNELL Administration Ferrous Sulfate 325 mg 08/13/25 09:00 08/13/25 09:27 Ferrous Sulfate 325 Mg Tablet BY MOUTH 325 mg DAILY DARNELL Administration Furosemide 20 mg 08/13/25 09:00 08/13/25 09:27 Furosemide 20 Mg Tablet PO 20 mg DAILY DARNELL Administration Mupirocin 1 applic 08/12/25 09:00 08/13/25 12:04 Mupirocin 2% Oint 22 Gm Tube EACH NARE 08/15/25 09:01 1 applic TID DARNELL Administration Ondansetron HCl 4 mg 08/11/25 21:04 Ondansetron Inj 4 Mg/2 Ml Vial IV PUSH Q4H PRN Nausea Sacubitril/Valsartan 1 tab 08/12/25 21:00 08/13/25 09:26 Sacubitril/Valsartan 24-26 Mg Tablet PO 1 tab Q12HR DARNELL Administration Sertraline HCl 25 mg 08/13/25 09:00 08/13/25 09:26 Sertraline Hcl 25 Mg Tablet PO 25 mg DAILY DARNELL Administration Sodium Chloride 1 spray 08/12/25 09:01 Saline 0.65% Stephen Soln 44 Ml Btl NASAL Q6HR PRN Congestion Spironolactone 25 mg 08/13/25 09:00 08/13/25 09:27 Spironolactone 25 Mg Tablet PO 25 mg DAILY DARNELL Administration Radiology Results: ITS Impressions Chest X-Ray 08/11/25 21:01 IMPRESSION: 1. No acute pulmonary findings. Significant cardiomegaly and atherosclerotic aorta. Labs Labs: Laboratory Results - last 24 hr 08/13/25 08/13/25 04:00 13:01 WBC 4.4 L 4.8 RBC 4.29 4.45 Hgb 11.0 L 11.5 L Hct 35.4 L 36.6 L MCV 82.5 82.2 MCH 25.6 L 25.8 L MCHC 31.1 L 31.4 L RDW 28.6 H 28.9 H Plt Count 176 199 MPV TNP 10.6 H % Immature Plt Fraction 3.1 3.1 Sodium 141 Potassium 3.7 Chloride 110 H Carbon Dioxide 22 Anion Gap 9 BUN 12 Creatinine 0.96 Estim Creat Clear Calc 44 Estimated GFR 57 L Glucose 107 Calcium 9.1
--- NOTE | 2025-08-13 16:30 | P.DS_ITS ---
DS: Admitting Diagnosis Discharge Date 08/13/2025 Admitting Diagnosis Epistaxis DS: Discharge Diagnosis Discharge Diagnosis (1) Atrial fibrillation with RVR: Code(s): I48.91 - Unspecified atrial fibrillation Status: Acute Assessment and Plan: -the patient is not aware of her medication list. However she is aware that she is on on Eliquis. Her daughter is bringing in the home medications so that we can verify them in get her restarted on her home medications. -the patient typically goes to [facility]. I did ask for records from the pharmacy technician trainee for review. -the patient has been going in and out of AFib throughout the night. Sometimes she has bradycardia and with activity her heart rate gets of the 130s and she is back in AFib. -she had been on a Cardizem drip but is now stopped due to the bradycardia. -resume home medications when able including Eliquis. Her blood new nose has stopped. -she can follow-up with her pharmacy technician trainee at [facility]. (2) Congestive heart failure: Code(s): I50.9 - Heart failure, unspecified Status: Acute Assessment and Plan: -resume home medications when they are verified. -the patient has a LifeVest with her. -cardiology records have been requested. -no fluid overload noted. -current BNP is 3290. (3) Epistaxis: Code(s): R04.0 - Epistaxis Status: Acute Assessment and Plan: -this was stopped in the emergency room with pressure. Resume Eliquis when able to verify her dosage. -H&H appears to be stable. (4) Hypertension: Code(s): I10 - Essential (primary) hypertension Status: Acute Assessment and Plan: -her blood pressure was initially elevated. She is currently 139/79 (5) CAD (coronary artery disease): Code(s): I25.10 - Atherosclerotic heart disease of [place] coronary artery without angina pectoris Status: Acute Assessment and Plan: -the patient stated that she has 1 cardiac stent. -[facility]. (6) Chronic venous stasis: Code(s): I87.8 - Other specified disorders of veins Status: Acute Assessment and Plan: -the patient stated that she is had her lower extremities debrided the past. She stated [facility] and soon they will be debriding her right medial lower extremity. -wound care consultation was placed. Further examination and recommendations greatly appreciated. -the wounds do not appear to be infected at this time. It appears that the patient has been placed on clindamycin in the past but is not currently on any antibiotics. (7) Anemia: Code(s): D64.9 - Anemia, unspecified Status: Acute Assessment and Plan: -at H&H is at her baseline. Even with the epistaxis her H&H remained the same. (8) Hypokalemia: Code(s): E87.6 - Hypokalemia Status: Acute Assessment and Plan: -unsure if the patient is on diuretics at home. -check magnesium levels as well. -supplement when necessary. Her current potassium is 3.2. DS: Summary Hospital Course Hospital Course: 74-year-old female patient who resides with her daughter. The patient has a history of atrial fibrillation and is on Eliquis. Patient stated that she is been having a bloody nose for 3 days and could not get it to stop. [facility] but felt that she could not make it there because it was too far. She also has a history of congestive heart failure and she has a LifeVest due to low ejection fraction. The patient stated that she has been feeling weaker and run down from her bloody nose. Her H&H was 11.0 in 34.6 and is down to 10.1 in 31.9. The patient appears to be at her baseline. Her potassium was found to be 3.2. Her creatinine is 1.06. Troponins have been negative x3. Her BNP is 3290. Patient was found to be in AFib with RVR. Her heart rate would go up and down while she was in the emergency room. After much consideration, the patient was started on a Cardizem drip. However her nose bleed did stop in the emergency room with pressure.. 08/12: Patient was admitted in the setting of nosebleed. Consulted ENT and appreciate recommendation on restarting Eliquis. Cardiology consulted. According to the Cardiology patient has a history of nonischemic cardiomyopathy and persistent atrial fibrillation and follows up with Cardiology at [place]. Her evaluation eventually will lead to left heart catheterization that was done at [facility] July 20, 2025. She was found to have no significant coronary artery disease and left ventricular systolic function with an ejection fraction of about 30%. Since the diagnosis she has been in atrial fibrillation as well. They have been managing the patient with amiodarone as well as guideline directed medical therapy for atrial fibrillation and systemic anticoagulation with apixaban. No more episodes of epistaxis will start the evening dose of Eliquis 08/13: Eliquis was restarted yesterday night. Patient had 4 episodes of epistaxis from this morning. Had a long discussion with her daughter. She wants to continue Eliquis regardless of the bleeding. ENT evaluated the patient and placed a rhino pack. Advised the patient to follow up with him as outpatient tomorrow for evaluation and removal of rhino pack on coming Sunday. Patient needs to discuss with her pharmacy technician trainee regarding Eliquis continuation or dose reduction. On the day of discharge, the patient was seen and examined. Vital signs were stable. Physical exam were stable and labs were reviewed at length. Discharge instructions, medications, and follow-up appointments were discussed with the patient at length and all day questions were answered. ER warnings were given. Status at Discharge Cognitive/behavioral status at discharge: Stable Time Spent with Patient Time attestation: Total time spent providing and/or coordinating discharge services: 45 minutes Exam Const: General: cooperative, healthy appearing, comfortable, no acute distress, well developed, awake, Physically active, average body habitus and well nourished Nutritional Appearance: average body habitus and well nourished Orientation/consciousness: oriented to person, oriented to place, oriented to time and patient oriented x3 Limitations: no limitations HENMT: Head: normal to inspection, No palpable skull fracture present, normocephalic, atraumatic and abrasion Ears: external ears normal Throat: posterior oropharynx normal Other: And no blood noted to either nostril. No blood noted in the posterior pharynx. Patient is slightly hard of hearing. Eyes: General: appearance normal, both eyes and all related structures Alignment and Position: alignment normal Periorbital: periorbital findings normal Eyelids: eyelids normal EOM: EOMs intact bilaterally Neck: Neck: normal visual inspection, full ROM and no lymphadenopathy Chest: Chest palpation & inspection: normal inspection of the chest Resp: Effort & Inspection: normal respiratory effort Auscultation: clear to auscultation bilaterally Percussion: percussion normal Cardio: Palpation: normal PMI Rhythm: abnormal rhythm Heart sounds: S1 normal heart sound present and S2 normal heart sound present Peripheral pulses: Peripheral pulses 2+ throughout Other: Patient is going in out of AFib. GI: Inspection: normal to inspection Auscultation: normal bowel sounds Rectal Exam: deferred Skin: General skin exam: normal color Lesions: no lesions Rashes: no rashes Trauma: no lacerations or abrasions Hair: normal Nails: normal Other: Patient has multiple ulcerated areas to bilateral lower extremities. Approximately 2 x 3. This is chronic. Neuro: General: oriented to person, oriented to place, oriented to time and patient oriented x3 Cranial nerves: Yes Normal hearing present Cognition (Neuro): normal cognition Speech: normal speech Gait exam (Neuro): Normal gait present Motor exam (neuro): 5/5 motor strength present throughout Sensory Exam: normal sensation Other: Patient is a poor historian. Extrem: General: normal to inspection Right upper extremity: normal to inspection and shoulder/upper arm Left upper extremity: normal to inspection and shoulder/upper arm Right lower extremity: normal to inspection Left lower extremity: normal to inspection Other: Multiple ulcerated areas to bilateral lower extremities. No drainage noted. No erythema around the ulcerated areas. Psych: Appearance: grossly normal Mental Status: mental status grossly normal Speech and movement: Normal speech and movement present Affect: normal affect Attitude: cooperative Thought process: Normal thought process present DS: Data Data Completed and Pending Labs on day of discharge: Labs from last 24 hours 08/13/25 08/13/25 13:01 04:00 WBC 4.8 4.4 L RBC 4.45 4.29 Hgb 11.5 L 11.0 L Hct 36.6 L 35.4 L MCV 82.2 82.5 MCH 25.8 L 25.6 L MCHC 31.4 L 31.1 L RDW 28.9 H 28.6 H Plt Count 199 176 MPV 10.6 H TNP % Immature Plt Fraction 3.1 3.1 Sodium 141 Potassium 3.7 Chloride 110 H Carbon Dioxide 22 Anion Gap 9 BUN 12 Creatinine 0.96 Estim Creat Clear Calc 44 Estimated GFR 57 L Glucose 107 Calcium 9.1 Discharge Plan Discharge Attending physician on discharge: Jonathan Sheehan Consulting providers: Trey Reina; Fleissner,Abdelrahman. Discharging Clinician: Jonathan Sheehan Anticipated Discharge Date/Time: 08/13/25 08:24 Patient Disposition: Home Activity: as tolerated Diet: heart healthy Discharge Instructions: Please return to ED if any further episodes of epistaxis. Please follow-up with your Cardiology upon discharge Please follow-up with your PCP within a week upon discharge. Please follow-up with ENT tomorrow and on 08/17 Patient Instructions: Apixaban (By mouth), Heart Failure (GEN), Nosebleed (GEN) Patient Language: [place] Citizen Stand Alone Forms: General Discharge Information Follow-up/Referrals: Trey Reina MD [Physician, Ear, Nose, Throat] - 08/17/25 Referral Note: Removal of rhino rocket PHYSICIAN,POST ACUTE CARE NURSE [Primary Care Provider, Internal Medicine] Referral Note: Patient needs to follow-up with PCP and Cardiology within a week upon discharge Discharge Medications: New hydrocodone-acetaminophen 5-325 mg Tablet 1 tablet PO Q4H PRN (Reason: Pain Rated 4-6) Qty: 10 0RF Saline Mist 0.65 % Aerosol,[place] 1 spray intranasal Q6HR PRN (Reason: Congestion) Qty: 1 0RF mupirocin 2 % Ointment 1 applic EACH NARE TID Qty: 1 0RF Continued atorvastatin 10 mg tablet 10 mg PO QPM ferrous sulfate [FeroSul] 325 mg (65 mg iron) tablet 325 mg PO DAILY furosemide 20 mg tablet 20 mg PO DAILY amiodarone 200 mg tablet 200 mg PO Q12H Eliquis 5 mg tablet 5 mg PO BID carvedilol [Coreg] 6.25 mg tablet 6.25 mg PO BID Rx Instructions: must administer with a meal/food Jardiance 10 mg tablet 10 mg PO DAILY sacubitril-valsartan [Entresto] 24-26 mg tablet 1 tablet PO BID spironolactone [Aldactone] 25 mg tablet 25 mg PO DAILY sertraline [Zoloft] 25 mg tablet 25 mg PO DAILY nystatin 100,000 unit/gram powder 1 applic topical BID PRN (Reason: rash) Date of admission: 08/13/25 16:18 Primary Care Provider: PHYSICIAN,POST ACUTE CARE NURSE Admitting Provider: Edwin Tatum Attending physician on admission: Edwin Tatum Condition: Stable
--- OUTSIDE RECORDS SUMMARY | 2025-10-01 18:00 | XMS_ITS | Clinical Summary ---
Author Organization Unknown Care Team Providers Care Sterile Processing Manager Name Role Phone OSMIN BURNETT, RAJENDRA Unavailable Unavailable NAYLA RNASHLEY Unavailable Unavailable Payers Payer Name Policy Type Policy Number Effective Date Expira tion Date MEDICARE - [place] [facility] [id number] Problems Condition Name Condition Details Condition Category Status Onset Date Resolution Date Last Treatment Date Treating Clinician Comments LONGSTANDING PERSISTENT ATRIAL FIBRILLATION Active 09-24 00:00: 00 HYPERTENSIVE HEART DISEASE WITH HEART FAILURE Active 09-24 00:00: 00 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 Active 09-24 00:00: 00 TYPE 2 DIABETES MELLITUS WITH DIABETIC NEUROPATHY, UNSP Active 09-24 00:00: 00 DILATED CARDIOMYOPAT HY Active 09-24 00:00: 00 TYPE 2 DIABETES MELLITUS WITH OTHER SPECIFIED COMPLICATION Active 09-24 00:00: 00 OTHER HYPERLIPIDEM IA Active 09-24 00:00: 00 GENERALIZED ANXIETY DISORDER Active 09-24 00:00: 00 IRON DEFICIENCY ANEMIA, UNSPECIFIED Active 09-24 00:00: 00 OLD MYOCARDIAL INFARCTION Active 09-24 00:00: 00 MIGRAINE, UNSP, NOT INTRACTABLE, WITHOUT STATUS MIGRAINOSUS Active 09-24 00:00: 00 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 Active 09-24 00:00: 00 Obesity, class 2 Active 09-24 00:00: 00 BODY MASS INDEX [BMI] 32.0-32.9, ADULT Active 09-24 00:00: 00 PERSONAL HISTORY OF NICOTINE DEPENDENCE Active 09-24 00:00: 00 ACQUIRED ABSENCE OF BOTH CERVIX AND UTERUS Active 09-24 00:00: 00 ACQUIRED ABSENCE OF OTHER SPECIFIED PARTS OF DIGESTIVE TRACT Active 09-24 00:00: 00 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 (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 Ordering Clinician Indication Dosage Frequency Signature (SIG) Comments Components aspirin 81 mg tablet 2024-09 00:00: 00 Yes [id number] 1 tablet DAILY 1 tablet DAILY (route: oral) Med Classific ation: Hematolog ical Agents atorvastati n 10 mg tablet 2024-09 00:00: 00 Yes [id number] 1 tablet DAILY 1 tablet DAILY (route: oral) Med Classific ation: Cardiovas cular Therapy Agents carvedilol 3.125 mg tablet 2024-09 00:00: 00 08-04 00:00 :00 No [id number] 1 tablet 2 TIMES DAILY 1 tablet 2 TIMES DAILY (route: oral) Med Classific ation: Cardiovas cular Therapy Agents Eliquis 5 mg tablet 2024-09 00:00: 00 Yes [id number] 1 tablet 2 TIMES DAILY 1 tablet 2 TIMES DAILY (route: oral) Med Classific ation: Hematolog ical Agents Entresto 24 mg-26 mg tablet 2024-09 00:00: 00 Yes [id number] 1 tablet 2 TIMES DAILY 1 tablet 2 TIMES DAILY (route: oral) Med Classific ation: Cardiovas cular Therapy Agents ferrous sulfate 325 mg (65 mg iron) tablet 2024-09 00:00: 00 Yes [id number] 1 tablet DAILY 1 tablet DAILY (route: oral) Med Classific ation: Electroly te Balance-N utritiona l Products furosemide 20 mg tablet 2024-09 00:00: 00 Yes [id number] 1 tablet EVERY OTHER DAY 1 tablet EVERY OTHER DAY (route: oral) Med Classific ation: Cardiovas cular Therapy Agents Jardiance 10 mg tablet 2024-09 00:00: 00 Yes [id number] 1 tablet DAILY 1 tablet DAILY (route: oral) Med Classific ation: Endocrine sertraline 25 mg tablet 2024-09 00:00: 00 Yes [id number] 1 tablet DAILY 1 tablet DAILY (route: oral) Med Classific ation: Central Nervous System Agents spironolact one 25 mg tablet 2024-09 00:00: 00 Yes [id number] 1 tablet DAILY 1 tablet DAILY (route: oral) Med Classific ation: Cardiovas cular Therapy Agents Wound Cleanser irrigation spray 2024-09 00:00: 00 08-04 00:00 :00 No [id number] Per instruc tions DIRECTED Per instructio ns DIRECTED (route: irrigation ) Med Classific ation: Dermatolo gical Pharmacy Compounded Medication 2024-09 00:00: 00 08-04 00:00 :00 No [id number] Per instruc tions DIRECTED Per instructio ns DIRECTED (route: Per Instructio ns) Med Classific ation: Custom acetaminoph en 325 mg capsule 2024-09 00:00: 00 Yes [id number] 2 capsule EVERY 4 HOURS 2 capsule EVERY 4 HOURS (route: oral) Med Classific ation: Analgesic , Anti-infl ammatory or Antipyret ic amiodarone 200 mg tablet 2024-09 00:00: 00 Yes [id number] 1 tablet 2 TIMES DAILY 1 tablet 2 TIMES DAILY (route: oral) Med Classific ation: Cardiovas cular Therapy Agents carvedilol 6.25 mg tablet 2024-09 00:00: 00 Yes [id number] 1 tablet 2 TIMES DAILY 1 tablet 2 TIMES DAILY (route: oral) Med Classific ation: Cardiovas cular Therapy Agents Immunizations Ordered Immunization Name Filled Immunization Name Date Status Comments Refusal Reason REFUSED COVID, COVID-19 2025-08-04 00:00:00 REFUSED PNEUMONIA, PPV 2025-08-04 00:00:00 INFLUENZA, TIV (INACTIVATED) 2025-07-14 00:00:00 Vital Signs Vital Name Observation Time Observation Value Commen ts Temperature 2025-08-10 13:26:00.000 97.7 [degF] Temperature 2025-08-04 11:05:00.000 97.9 [degF] BMI (%) 2025-08-04 11:05:00.000 32 kg/m2 Height 2025-08-04 11:05:00.000 61 [in_us] Pulse 2025-08-10 13:26:00.000 80 /min Pulse 2025-08-04 11:05:00.000 78 /min O2 Saturation (%) 2025-08-10 13:26:00.000 98 % O2 Saturation (%) 2025-08-04 11:05:00.000 99 % Respirations 2025-08-10 13:26:00.000 16 /min Respirations 2025-08-04 11:05:00.000 16 /min Weight (lbs) 2025-08-04 11:05:00.000 169.8 [lb_av] Systolic Blood Pressure 2025-08-10 13:26:00.000 128 mm [Hg] Systolic Blood Pressure 2025-08-04 11:05:00.000 144 mm [Hg] Diastolic Blood Pressure 2025-08-10 13:26:00.000 80 mm [Hg] Diastolic Blood Pressure 2025-08-04 11:05:00.000 84 mm [Hg] Plan of Treatment Planned Activity Planned Date Details Comments Future Scheduled Test SKILLED NU RSE TO EVALUATE PATIENT, IDENTIFY PRIMARY AND CO-MORBID CONDITIONS CODED PER CODING GUIDELINES, AND DEVELOP PATIENT SPECIFIC PLAN OF CARE THAT INCLUDES PATIENT GOAL FOR HOME HEALTH. PLAN OF CARE TO INCLUDE 3 PRN VISIT(S) FOR OASIS DATA COLLECTION/COMPREHENSIVE ASSESSMENT AT TIMEPOINTS PER FEDERAL REGULATIONS. THIS INCLUDES VISITS FOR GARDENIA, RECERT, SCIC, AND/OR DC. [code = SKILLED NURSE TO EVALUATE PATIENT, IDENTIFY PRIMARY AND CO-MORBID CONDITIONS CODED PER CODING GUIDELINES, AND DEVELOP PATIENT SPECIFIC PLAN OF CARE THAT INCLUDES PATIENT GOAL FOR HOME HEALTH. PLAN OF CARE TO INCLUDE 3 PRN VISIT(S) FOR OASIS DATA COLLECTION/COMPREHENSIVE ASSESSMENT AT TIMEPOINTS PER FEDERAL REGULATIONS. THIS INCLUDES VISITS FOR GARDENIA, RECERT, SCIC, AND/OR DC.] Future Scheduled Test [facility] MAY ACCEPT ORDERS FROM THE FOLLOWING PHYSICIANS: DR LAWRENCE WAITE DR JESSIKA VINES, ON-CALL/ TREATING PROVIDERS. [code = HOME [facility]ALTH AGENC[facility] MAY ACCEPT ORDERS FROM THE FOLLOWING PHYSICIANS: DR LAWRENCE WAITE, DR JESSIKA VINES, ON-CALL/ TREATING PROVIDERS.] Future Scheduled Test SKILLED NU RSE TO ASSESS ANXIETY AND PROVIDE ASSISTANCE TO PATIENT FOR UNDERSTANDING AND MANAGEMENT OF FEELINGS. [code = SKILLED NURSE TO ASSESS ANXIETY AND PROVIDE ASSISTANCE TO PATIENT FOR UNDERSTANDING AND MANAGEMENT OF FEELINGS.] Future Scheduled Test SKILLED NU RSE FOR O/A AND SKILLED TEACHING RELATED TO SIGNS AND SYMPTOMS OF INFECTION AND INFECTION CONTROL MEASURES. [code = SKILLED NURSE FOR O/A AND SKILLED TEACHING RELATED TO SIGNS AND SYMPTOMS OF INFECTION AND INFECTION CONTROL MEASURES.] Future Scheduled Test SKILLED NU RSE FOR O/A OF SELF-CARE DEFICITS AND TO PROVIDE TEACHING RELATED TO SAFE PROVISION OF ADLS. [code = SKILLED NURSE FOR O/A OF SELF-CARE DEFICITS AND TO PROVIDE TEACHING RELATED TO SAFE PROVISION OF ADLS.] Future Scheduled Test SKILLED NU RSE TO OBTAIN BLOOD SUGAR PRN FOR SIGNS AND SYMPTOMS OF HYPO/HYPERGLYCEMIA. IF OBTAINED BY PATIENT/CAREGIVER PRIOR TO VISIT AND PATIENT IS NOT SYMPTOMATIC, SKILLED NURSE TO RECORD READING FROM PATIENT LOG. [code = SKILLED NURSE TO OBTAIN BLOOD SUGAR PRN FOR SIGNS AND SYMPTOMS OF HYPO/HYPERGLYCEMIA. IF OBTAINED BY PATIENT/CAREGIVER PRIOR TO VISIT AND PATIENT IS NOT SYMPTOMATIC, SKILLED NURSE TO RECORD READING FROM PATIENT LOG.] Future Scheduled Test SKILLED NU RSE TO INSTRUCT PATIENT/CAREGIVER ON SIGNS AND SYMPTOMS, RISK FACTORS, COMPLICATIONS, AND MANAGEMENT OF ATRIAL FIBRILLATION. [code = SKILLED NURSE TO INSTRUCT PATIENT/CAREGIVER ON SIGNS AND SYMPTOMS, RISK FACTORS, COMPLICATIONS, AND MANAGEMENT OF ATRIAL FIBRILLATION.] Future Scheduled Test SKILLED NU RSE TO PROVIDE TEACHING ON SIGNS AND SYMPTOMS AND MANAGEMENT OF HYPERTENSION. [code = SKILLED NURSE TO PROVIDE TEACHING ON SIGNS AND SYMPTOMS AND MANAGEMENT OF HYPERTENSION.] Future Scheduled Test SKILLED NU RSE FOR O/A, TEACHING AND SELF-MANAGEMENT RELATED TO HEART FAILURE. INSTRUCT PATIENT/CAREGIVER ON SIGNS AND SYMPTOMS OF EXACERBATION TO REPORT AND IMPORTANCE OF OBTAINING AND RECORDING DAILY WEIGHT. SN OR TRAINED PATIENT/CAREGIVER TO OBTAIN WEIGHT DAILY AND WEIGHT GAIN OF 2 LBS OVERNIGHT OR 5 LBS IN 1 WEEK TO BE REPORTED TO PHYSICIAN/PROVIDER. [code = SKILLED NURSE FOR O/A, TEACHING AND SELF-MANAGEMENT RELATED TO HEART FAILURE. INSTRUCT PATIENT/CAREGIVER ON SIGNS AND SYMPTOMS OF EXACERBATION TO REPORT AND IMPORTANCE OF OBTAINING AND RECORDING DAILY WEIGHT. SN OR TRAINED PATIENT/CAREGIVER TO OBTAIN WEIGHT DAILY AND WEIGHT GAIN OF 2 LBS OVERNIGHT OR 5 LBS IN 1 WEEK TO BE REPORTED TO PHYSICIAN/PROVIDER.] Future Scheduled Test SKILLED NU RSE FOR O/A AND TEACHING OF DIABETIC MANAGEMENT INCLUDING DIABETIC DIET, LOWER EXTREMITY SKIN INSPECTION, PROPER SKIN/FOOT CARE, AND SIGNS AND SYMPTOMS HYPO/HYPERGLYCEMIA TO REPORT. [code = SKILLED NURSE FOR O/A AND TEACHING OF DIABETIC MANAGEMENT INCLUDING DIABETIC DIET, LOWER EXTREMITY SKIN INSPECTION, PROPER SKIN/FOOT CARE, AND SIGNS AND SYMPTOMS HYPO/HYPERGLYCEMIA TO REPORT.] Future Scheduled Test SKILLED NU RSE TO INSTRUCT PATIENT/CAREGIVER ON PREVENTION OF SEPSIS, AND SIGNS AND SYMPTOMS OF SEPSIS TO REPORT. [code = SKILLED NURSE TO INSTRUCT PATIENT/CAREGIVER ON PREVENTION OF SEPSIS, AND SIGNS AND SYMPTOMS OF SEPSIS TO REPORT.] Future Scheduled Test PATIENT ALONSO S A RISK OF HOSPITALIZATION AND ED USE. SKILLED NURSE TO ESTABLISH SUPPORT MEASURES TO MINIMIZE RISK OF HOSPITALIZATION AND ED USE, AND INSTRUCT PATIENT/CAREGIVER ON METHODS TO REDUCE AVOIDABLE HOSPITALIZATION AND ED USE. [code = PATIENT HAS A RISK OF HOSPITALIZATION AND ED USE. SKILLED NURSE TO ESTABLISH SUPPORT MEASURES TO MINIMIZE RISK OF HOSPITALIZATION AND ED USE, AND INSTRUCT PATIENT/CAREGIVER ON METHODS TO REDUCE AVOIDABLE HOSPITALIZATION AND ED USE.] Future Scheduled Test SKILLED NU RSE TO PROVIDE INSTRUCTION TO PATIENT/CAREGIVER RELATED TO DISCHARGE PLANNING. [code = SKILLED NURSE TO PROVIDE INSTRUCTION TO PATIENT/CAREGIVER RELATED TO DISCHARGE PLANNING.] Future Scheduled Test SKILLED NU RSE TO PERFORM ENVIRONMENTAL SAFETY RISK ASSESSMENT AND FALL RISK ASSESSMENT AND PROVIDE INSTRUCTION TO IMPLEMENT ENVIRONMENTAL SAFETY AND FALL PREVENTION STRATEGIES THROUGHOUT THE CERTIFICATION PERIOD. SKILLED NURSE WILL MAINTAIN SITUATIONAL AWARENESS AND WILL NOTIFY CLINICAL NREMT AND PHYSICIAN/PROVIDER WITH ANY CHANGE IN CONDITION. [code = SKILLED NURSE TO PERFORM ENVIRONMENTAL SAFETY RISK ASSESSMENT AND FALL RISK ASSESSMENT AND PROVIDE INSTRUCTION TO IMPLEMENT ENVIRONMENTAL SAFETY AND FALL PREVENTION STRATEGIES THROUGHOUT THE CERTIFICATION PERIOD. SKILLED NURSE WILL MAINTAIN SITUATIONAL AWARENESS AND WILL NOTIFY CLINICAL NREMT AND PHYSICIAN/PROVIDER WITH ANY CHANGE IN CONDITION.] Future Scheduled Test SKILLED NU RSE FOR OBSERVATION AND ASSESSMENT OF PATIENT S PAIN LEVEL AND EFFECTIVENESS OF PAIN MANAGEMENT REGIMEN. SKILLED NURSE TO INSTRUCT PATIENT/CAREGIVER REGARDING PHARMACOLOGIC AND NON-PHARMACOLOGIC PAIN CONTROL MEASURES. SKILLED NURSE TO REPORT TO PHYSICIAN IF PAIN LEVEL IS OUTSIDE OF ESTABLISHED PARAMETERS. [code = SKILLED NURSE FOR OBSERVATION AND ASSESSMENT OF PATIENT S PAIN LEVEL AND EFFECTIVENESS OF PAIN MANAGEMENT REGIMEN. SKILLED NURSE TO INSTRUCT PATIENT/CAREGIVER REGARDING PHARMACOLOGIC AND NON-PHARMACOLOGIC PAIN CONTROL MEASURES. SKILLED NURSE TO REPORT TO PHYSICIAN IF PAIN LEVEL IS OUTSIDE OF ESTABLISHED PARAMETERS.] Future Scheduled Test SKILLED NU RSE TO ASSESS PATIENT'S SKIN INTEGRITY AND INSTRUCT PATIENT/CAREGIVER ON MEASURES TO PREVENT PRESSURE ULCERS. [code = SKILLED NURSE TO ASSESS PATIENT'S SKIN INTEGRITY AND INSTRUCT PATIENT/CAREGIVER ON MEASURES TO PREVENT PRESSURE ULCERS.] Future Scheduled Test SN TO INST RUCT PATIENT/CAREGIVER ON HEART FAILURE MANAGEMENT UTILIZING THE MATTERS OF THE HEART SPECIALTY PROGRAM. [code = SN TO INSTRUCT PATIENT/CAREGIVER ON HEART FAILURE MANAGEMENT UTILIZING THE MATTERS OF THE HEART SPECIALTY PROGRAM.] Future Scheduled Test SKILLED NU RSE TO REVIEW PATIENT MEDICATIONS (PRESCRIPTION/OTC). INSTRUCT PATIENT/CAREGIVER ON ALL MEDICATIONS INCLUDING PURPOSE, WHEN TO TAKE, IMPORTANCE OF MEDICATION ADHERENCE, MONITORING OF EFFECTIVENESS, ADVERSE DRUG REACTIONS, POSSIBLE SIDE EFFECTS, AND WHEN TO NOTIFY AGENCY OR PHYSICIAN/PROVIDER OF ANY CONCERNS. [code = SKILLED NURSE TO REVIEW PATIENT MEDICATIONS (PRESCRIPTION/OTC). INSTRUCT PATIENT/CAREGIVER ON ALL MEDICATIONS INCLUDING PURPOSE, WHEN TO TAKE, IMPORTANCE OF MEDICATION ADHERENCE, MONITORING OF EFFECTIVENESS, ADVERSE DRUG REACTIONS, POSSIBLE SIDE EFFECTS, AND WHEN TO NOTIFY AGENCY OR PHYSICIAN/PROVIDER OF ANY CONCERNS.] Goal Patient Goal - TO STAY OUT O F HOSPITAL Goal Provider Goal - A PLAN OF CARE WILL BE ESTABLISHED THAT MEETS PATIENT'S INTERMEDIATE NEEDS AND INCLUDES PATIENT GOAL FOR HOME HEALTH. Goal Provider Goal - ADDITIONAL ORDERS WILL BE RECEIVED FROM ALTERNATE PHYSICIAN IN A TIMELY MANNER THROUGHOUT THE CERTIFICATION PERIOD. Goal Provider Goal - SYMPTOMS OF ANXIETY ARE IDENTIFIED AND INTERVENTIONS INITIATED TO ENABLE PATIENT TO UNDERSTAND AND MANAGE FEELINGS THROUGHOUT EPISODE. Goal Provider Goal - PATIENT/CAREGIVER WILL VERBALIZE/DEMONSTRATE UNDERSTANDING OF S/S OF INFECTION AND INFECTION CONTROL MEASURES. SIGNS AND SYMPTOMS OF INFECTION WILL BE IDENTIFIED AND PHYSICIAN NOTIFIED FOR PROMPT INTERVENTION THROUGHOUT THE CERTIFICATION PERIOD. Goal Provider Goal - PATIENT/CAREGIVER WILL VERBALIZE/DEMONSTRATE UNDERSTANDING OF SAFE PROVISION OF ADLS BY THE END OF THE CERTIFICATION PERIOD. Goal Provider Goal - BLOOD SUGAR READING WILL BE OBTAINED ORDERED THROUGHOUT CERTIFICATION PERIOD. Goal Provider Goal - PATIENT/CAREGIVER WILL VERBALIZE UNDERSTANDING OF SIGNS AND SYMPTOMS, COMPLICATIONS, AND MANAGEMENT OF ATRIAL FIBRILLATION THROUGHOUT THE CERTIFICATION PERIOD. Goal Provider Goal - PATIENT/CAREGIVER WILL VERBALIZE SIGNS AND SYMPTOMS OF HYPERTENSION AND WILL BE ABLE TO DEMONSTRATE ABILITY TO MANAGE EXACERBATION BY END OF THE EPISODE. Goal Provider Goal - PATIENT/CAREGIVER WILL VERBALIZE/DEMONSTRATE KNOWLEDGE AND MANAGEMENT OF HEART FAILURE DISEASE PROCESS BY END OF EPISODE. Goal Provider Goal - PATIENT/CAREGIVER WILL VERBALIZE/DEMONSTRATE KNOWLEDGE OF DIABETIC MANAGEMENT. CHANGES IN DIABETIC STATUS WILL BE IDENTIFIED AND REPORTED TO PHYSICIAN FOR PROMPT INTERVENTION THROUGHOUT THE CERTIFICATION PERIOD. Goal Provider Goal - PATIENT WILL BE FREE FROM INFECTION AND PATIENT/CAREGIVER WILL VERBALIZE UNDERSTANDING OF SIGNS AND SYMPTOMS AND METHODS TO PREVENT SEPSIS BY END OF THE EPISODE. Goal Provider Goal - PATIENT WILL HAVE SUPPORT MEASURES ESTABLISHED TO PREVENT HOSPITALIZATION AND ED USE AND PATIENT/CAREGIVER WILL VERBALIZE/DEMONSTRATE METHODS TO REDUCE AVOIDABLE HOSPITALIZATION AND ED USE BY END OF EPISODE. Goal Provider Goal - PATIENT/CAREGIVER WILL VERBALIZE UNDERSTANDING OF DISCHARGE PLANNING INSTRUCTIONS BY DATE OF DISCHARGE. Goal Provider Goal - PATIENT/CAREGIVER WILL VERBALIZE/DEMONSTRATE EFFECTIVE ENVIRONMENTAL SAFETY AND FALL PREVENTION STRATEGIES, WILL REMAIN SAFE IN THE COMMUNITY, AND WILL BE FREE OF DANGER TO SELF AND OTHERS THROUGHOUT THE CERTIFICATION PERIOD. Goal Provider Goal - PATIENT/CAREGIVER WILL DEMONSTRATE UNDERSTANDING OF PHARMACOLOGIC AND NONPHARMACOLOGIC PAIN CONTROL MEASURES AND PATIENT WILL HAVE IMPROVEMENT IN PAIN INTERFERING WITH ACTIVITY EVIDENCED BY PAIN AT A LEVEL THAT IS ACCEPTABLE TO THE PATIENT AND PAIN LEVEL WITHIN ESTABLISHED PARAMETERS BY END OF CERTIFICATION PERIOD. Goal Provider Goal - PATIENT/CAREGIVER WILL VERBALIZE UNDERSTANDING OF PRESSURE ULCER PREVENTION BY END OF THE EPISODE. Goal Provider Goal - PATIENT/CAREGIVER WILL DEMONSTRATE MANAGEMENT OF HEART FAILURE A RESULT OF PARTICIPATION IN MATTERS OF THE HEART SPECIALTY PROGRAM. Goal Provider Goal - PATIENT/CAREGIVER WILL VERBALIZE UNDERSTANDING OF EDUCATION PROVIDED ON MEDICATIONS BY THE END OF THE CERTIFICATION PERIOD. Progress Notes Progress Notes <paragraph>[Visit Date: 2024 by DAVID BENAVIDSE LPN]:</paragraph><paragraph>NURSE HERE TODAY FOR ROUTINE VISIT UPON NURSE ARRIVAL PATIENT GREETS NURSE AT FRONT DOOR PATIENT RESIDES WITH DAUGHTER AT THIS TIME. PATIENT REMAINS HOMEBOUND DUE TO TAXING EFFORT TO LEAVE HOME. PATIENT IS ALERT AND ORIENTED VITAL SIGNS TODAY ALL WITHIN NORMAL PARAMETERS PATIENT HAS LIFEVEST IN PLACE. PATIENT STATES THAT SHE DOES NOT WEIGH HERSELF DAILY PATIENT EDUCATED ON THE IMPORTANCE OF WEIGHING HERSELF EVERY MORNING. PATIENT STATES SHE WILL START DOING THIS AND WRITING WEIGHT DOWN. PATIENT IS DIABETIC BUT DOES NOT TAKE BLOOD PRESSURES. PATIENT HAS MINIMAL SWELLING TO LOWER EXTREMITIES TODAY. WOUNDS REMAIN HEALED AT THIS TIME. PATIENT WAS EDUCATED ON A HEART HEALTHY DIET LOW SODIUM. PATIENT VOICED UNDERSTANDING. PATIENT IS SCHEDULED TO SEE CARDIOLOGY NEXT MONTH. ALL MEDICATIONS WERE REVIEWED WITH NO NEW MEDICATIONS NOTED. PATIENT'S CALENDAR WAS REVIEWED REGARDING NEXT INTERMEDIATE VISIT. PATIENT ADVISED TO CALL [facility] WITH ANY QUESTIONS CONCERNS OR CHANGES IN HEALTH STATUS</paragraph> Encounters Start Date/Time End Date/Time Encounter Type Admission Type Attending [facility] Care Department Encounter ID Discharge Date Discharge Status Discharge Condition Discharge Reason Percent Goals Met 2025-08-04 00:00:00 2025-10-02 00:00:00 Outpatient ASHLEY EVERETT [facility] [id number] 17.1 4
--- OUTSIDE RECORDS SUMMARY | 2025-10-01 18:00 | XMS_ITS | Clinical Summary ---
Author Organization Unknown Care Team Providers Care Chemical Preparer Name Role Phone OSMIN BURNETT, RAJENDRA Unavailable Unavailable NAYLA RNASHLEY Unavailable Unavailable Payers Payer Name Policy Type Policy Number Effective Date Expira tion Date MEDICARE - [place] 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 (CURRENT) USE OF ORAL HYPOGLYCEMIC DRUGS Active 09-24 00:00: 00 FRONT DESK COORDINATOR (CURRENT) USE OF ASPIRIN Active 09-24 00:00: 00 FRONT DESK COORDINATOR (CURRENT) USE OF ANTICOAGULAN TS Active 09-24 [...] 81 mg tablet 2024-09 00:00: 00 Yes [id number] 1 tablet DAILY 1 tablet DAILY (route: oral) Med Classific ation: Hematolog ical Agents atorvastati n 10 mg tablet 2024-09 00:00: 00 Yes [id number] 1 tablet DAILY 1 tablet DAILY (route: oral) Med Classific ation: Cardiovas cular Therapy Agents carvedilol 3.125 mg tablet 2024-09 00:00: 00 08-04 00:00 :00 No [id number] 1 tablet 2 TIMES DAILY 1 tablet 2 TIMES DAILY (route: oral) Med Classific ation: Cardiovas cular Therapy Agents Eliquis 5 mg tablet 2024-09 00:00: 00 Yes [id number] 1 tablet 2 TIMES DAILY 1 tablet 2 TIMES DAILY (route: oral) Med Classific ation: Hematolog ical Agents Entresto 24 mg-26 mg tablet 2024-09 00:00: 00 Yes [id number] 1 tablet 2 TIMES DAILY 1 tablet 2 TIMES DAILY (route: oral) Med Classific ation: Cardiovas cular Therapy Agents ferrous sulfate 325 mg (65 mg iron) tablet 2024-09 00:00: 00 Yes [id number] 1 tablet DAILY 1 tablet DAILY (route: oral) Med Classific ation: Electroly te Balance-N utritiona l Products furosemide 20 mg tablet 2024-09 00:00: 00 Yes [id number] 1 tablet EVERY OTHER DAY 1 tablet EVERY OTHER DAY (route: oral) Med Classific ation: Cardiovas cular Therapy Agents Jardiance 10 mg tablet 2024-09 00:00: 00 Yes [id number] 1 tablet DAILY 1 tablet DAILY (route: oral) Med Classific ation: Endocrine sertraline 25 mg tablet 2024-09 00:00: 00 Yes [id number] 1 tablet DAILY 1 tablet DAILY (route: oral) Med Classific ation: Central Nervous System Agents spironolact one 25 mg tablet 2024-09 00:00: 00 Yes [id number] 1 tablet DAILY 1 tablet DAILY (route: oral) Med Classific ation: Cardiovas cular Therapy Agents Wound Cleanser irrigation spray 2024-09 00:00: 00 08-04 00:00 :00 No [id number] Per instruc tions DIRECTED Per instructio ns DIRECTED (route: irrigation ) Med Classific ation: Dermatolo gical Pharmacy Compounded Medication 2024-09 00:00: 00 08-04 00:00 :00 No [id number] Per instruc tions DIRECTED Per instructio ns DIRECTED (route: Per Instructio ns) Med Classific ation: Custom acetaminoph en 325 mg capsule 2024-09 00:00: 00 Yes [id number] 2 capsule EVERY 4 HOURS 2 capsule EVERY 4 HOURS (route: oral) Med Classific ation: Analgesic , Anti-infl ammatory or Antipyret ic amiodarone 200 mg tablet 2024-09 00:00: 00 Yes [id number] 1 tablet 2 TIMES DAILY 1 tablet 2 TIMES DAILY (route: oral) Med Classific ation: Cardiovas cular Therapy Agents carvedilol 6.25 mg tablet 2024-09 00:00: 00 Yes [id number] 1 tablet 2 TIMES DAILY 1 tablet [...] MAINTAIN SITUATIONAL AWARENESS AND WILL NOTIFY CLINICAL MACHINE WELT BUTTER AND PHYSICIAN/PROVIDER WITH ANY CHANGE IN CONDITION. [code = SKILLED NURSE TO PERFORM ENVIRONMENTAL SAFETY RISK ASSESSMENT AND FALL RISK ASSESSMENT AND PROVIDE INSTRUCTION TO IMPLEMENT ENVIRONMENTAL SAFETY AND FALL PREVENTION STRATEGIES THROUGHOUT THE CERTIFICATION PERIOD. SKILLED NURSE WILL MAINTAIN SITUATIONAL AWARENESS AND WILL NOTIFY CLINICAL MACHINE WELT BUTTER AND PHYSICIAN/PROVIDER WITH ANY CHANGE IN CONDITION.] [...] CARE WILL BE ESTABLISHED THAT MEETS PATIENT'S [facility] NEEDS AND INCLUDES PATIENT GOAL FOR HOME [...] Progress Notes <paragraph>[Visit Date: 2024 by DAVID BENAVIDES LPN]:</paragraph><paragraph>NURSE HERE TODAY FOR ROUTINE VISIT UPON [...] NOTED. PATIENT'S CALENDAR WAS REVIEWED REGARDING NEXT [facility] VISIT. PATIENT ADVISED TO CALL [facility] WITH ANY QUESTIONS CONCERNS OR CHANGES IN HEALTH STATUS</paragraph> Encounters Start Date/Time End Date/Time Encounter Type Admission Type Attending [facility] Care Department Encounter ID Discharge Date Discharge Status Discharge Condition Discharge Reason Percent Goals Met 2025-08-04 00:00:00 2025-10-02 00:00:00 Outpatient ASHLEY EVERETT [facility] [id number] 17.1 4
--- OUTSIDE RECORDS SUMMARY | 2025-10-01 18:00 | XMS_ITS | Clinical Summary ---
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 Active 09-24 00:00: 00 CARBURETOR REBUILDER (CURRENT) USE OF ASPIRIN Active 09-24 00:00: 00 CARBURETOR REBUILDER (CURRENT) USE OF ANTICOAGULAN TS Active 09-24 [...] 81 mg tablet 2024-09 00:00: 00 Yes [id number] 1 tablet DAILY 1 tablet DAILY (route: oral) Med Classific ation: Hematolog ical Agents atorvastati n 10 mg tablet 2024-09 00:00: 00 Yes [id number] 1 tablet DAILY 1 tablet DAILY (route: oral) Med Classific ation: Cardiovas cular Therapy Agents carvedilol 3.125 mg tablet 2024-09 00:00: 00 08-04 00:00 :00 No [id number] 1 tablet 2 TIMES DAILY 1 tablet 2 TIMES DAILY (route: oral) Med Classific ation: Cardiovas cular Therapy Agents Eliquis 5 mg tablet 2024-09 00:00: 00 Yes [id number] 1 tablet 2 TIMES DAILY 1 tablet 2 TIMES DAILY (route: oral) Med Classific ation: Hematolog ical Agents Entresto 24 mg-26 mg tablet 2024-09 00:00: 00 Yes [id number] 1 tablet 2 TIMES DAILY 1 tablet 2 TIMES DAILY (route: oral) Med Classific ation: Cardiovas cular Therapy Agents ferrous sulfate 325 mg (65 mg iron) tablet 2024-09 00:00: 00 Yes [id number] 1 tablet DAILY 1 tablet DAILY (route: oral) Med Classific ation: Electroly te Balance-N utritiona l Products furosemide 20 mg tablet 2024-09 00:00: 00 Yes [id number] 1 tablet EVERY OTHER DAY 1 tablet EVERY OTHER DAY (route: oral) Med Classific ation: Cardiovas cular Therapy Agents Jardiance 10 mg tablet 2024-09 00:00: 00 Yes [id number] 1 tablet DAILY 1 tablet DAILY (route: oral) Med Classific ation: Endocrine sertraline 25 mg tablet 2024-09 00:00: 00 Yes [id number] 1 tablet DAILY 1 tablet DAILY (route: oral) Med Classific ation: Central Nervous System Agents spironolact one 25 mg tablet 2024-09 00:00: 00 Yes [id number] 1 tablet DAILY 1 tablet DAILY (route: oral) Med Classific ation: Cardiovas cular Therapy Agents Wound Cleanser irrigation spray 2024-09 00:00: 00 08-04 00:00 :00 No [id number] Per instruc tions DIRECTED Per instructio ns DIRECTED (route: irrigation ) Med Classific ation: Dermatolo gical Pharmacy Compounded Medication 2024-09 00:00: 00 08-04 00:00 :00 No [id number] Per instruc tions DIRECTED Per instructio ns DIRECTED (route: Per Instructio ns) Med Classific ation: Custom acetaminoph en 325 mg capsule 2024-09 00:00: 00 Yes [id number] 2 capsule EVERY 4 HOURS 2 capsule EVERY 4 HOURS (route: oral) Med Classific ation: Analgesic , Anti-infl ammatory or Antipyret ic amiodarone 200 mg tablet 2024-09 00:00: 00 Yes [id number] 1 tablet 2 TIMES DAILY 1 tablet 2 TIMES DAILY (route: oral) Med Classific ation: Cardiovas cular Therapy Agents carvedilol 6.25 mg tablet 2024-09 00:00: 00 Yes [id number] 1 tablet 2 TIMES DAILY 1 tablet [...] MAINTAIN SITUATIONAL AWARENESS AND WILL NOTIFY CLINICAL VALVE GRINDER AND PHYSICIAN/PROVIDER WITH ANY CHANGE IN CONDITION. [code = SKILLED NURSE TO PERFORM ENVIRONMENTAL SAFETY RISK ASSESSMENT AND FALL RISK ASSESSMENT AND PROVIDE INSTRUCTION TO IMPLEMENT ENVIRONMENTAL SAFETY AND FALL PREVENTION STRATEGIES THROUGHOUT THE CERTIFICATION PERIOD. SKILLED NURSE WILL MAINTAIN SITUATIONAL AWARENESS AND WILL NOTIFY CLINICAL VALVE GRINDER AND PHYSICIAN/PROVIDER WITH ANY CHANGE IN CONDITION.] [...] CARE WILL BE ESTABLISHED THAT MEETS PATIENT'S HALF-WAY NEEDS AND INCLUDES PATIENT GOAL FOR HOME [...] NOTED. PATIENT'S CALENDAR WAS REVIEWED REGARDING NEXT HALF-WAY VISIT. PATIENT ADVISED TO CALL [facility] WITH ANY QUESTIONS CONCERNS OR CHANGES IN HEALTH STATUS</paragraph> Encounters Start Date/Time End Date/Time Encounter Type Admission Type Attending [facility] Care Department Encounter ID Discharge Date Discharge Status Discharge Condition Discharge Reason Percent Goals Met 2025-08-04 00:00:00 2025-10-02 00:00:00 Outpatient ASHLEY EVERETT [facility] [id number] 17.1 4
--- OUTSIDE RECORDS SUMMARY | 2025-10-01 18:00 | XMS_ITS | Clinical Summary ---
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 Active 09-24 00:00: 00 ADDICTION SPECIALIST (CURRENT) USE OF ANTICOAGULAN TS Active 09-24 [...] 81 mg tablet 2024-09 00:00: 00 Yes [id number] 1 tablet DAILY 1 tablet DAILY (route: oral) Med Classific ation: Hematolog ical Agents atorvastati n 10 mg tablet 2024-09 00:00: 00 Yes [id number] 1 tablet DAILY 1 tablet DAILY (route: oral) Med Classific ation: Cardiovas cular Therapy Agents carvedilol 3.125 mg tablet 2024-09 00:00: 00 08-04 00:00 :00 No [id number] 1 tablet 2 TIMES DAILY 1 tablet 2 TIMES DAILY (route: oral) Med Classific ation: Cardiovas cular Therapy Agents Eliquis 5 mg tablet 2024-09 00:00: 00 Yes [id number] 1 tablet 2 TIMES DAILY 1 tablet 2 TIMES DAILY (route: oral) Med Classific ation: Hematolog ical Agents Entresto 24 mg-26 mg tablet 2024-09 00:00: 00 Yes [id number] 1 tablet 2 TIMES DAILY 1 tablet 2 TIMES DAILY (route: oral) Med Classific ation: Cardiovas cular Therapy Agents ferrous sulfate 325 mg (65 mg iron) tablet 2024-09 00:00: 00 Yes [id number] 1 tablet DAILY 1 tablet DAILY (route: oral) Med Classific ation: Electroly te Balance-N utritiona l Products furosemide 20 mg tablet 2024-09 00:00: 00 Yes [id number] 1 tablet EVERY OTHER DAY 1 tablet EVERY OTHER DAY (route: oral) Med Classific ation: Cardiovas cular Therapy Agents Jardiance 10 mg tablet 2024-09 00:00: 00 Yes [id number] 1 tablet DAILY 1 tablet DAILY (route: oral) Med Classific ation: Endocrine sertraline 25 mg tablet 2024-09 00:00: 00 Yes [id number] 1 tablet DAILY 1 tablet DAILY (route: oral) Med Classific ation: Central Nervous System Agents spironolact one 25 mg tablet 2024-09 00:00: 00 Yes [id number] 1 tablet DAILY 1 tablet DAILY (route: oral) Med Classific ation: Cardiovas cular Therapy Agents Wound Cleanser irrigation spray 2024-09 00:00: 00 08-04 00:00 :00 No [id number] Per instruc tions DIRECTED Per instructio ns DIRECTED (route: irrigation ) Med Classific ation: Dermatolo gical Pharmacy Compounded Medication 2024-09 00:00: 00 08-04 00:00 :00 No [id number] Per instruc tions DIRECTED Per instructio ns DIRECTED (route: Per Instructio ns) Med Classific ation: Custom acetaminoph en 325 mg capsule 2024-09 00:00: 00 Yes [id number] 2 capsule EVERY 4 HOURS 2 capsule EVERY 4 HOURS (route: oral) Med Classific ation: Analgesic , Anti-infl ammatory or Antipyret ic amiodarone 200 mg tablet 2024-09 00:00: 00 Yes [id number] 1 tablet 2 TIMES DAILY 1 tablet 2 TIMES DAILY (route: oral) Med Classific ation: Cardiovas cular Therapy Agents carvedilol 6.25 mg tablet 2024-09 00:00: 00 Yes [id number] 1 tablet 2 TIMES DAILY 1 tablet [...] MAINTAIN SITUATIONAL AWARENESS AND WILL NOTIFY CLINICAL RIM ROLLER SETTER AND PHYSICIAN/PROVIDER WITH ANY CHANGE IN CONDITION. [code = SKILLED NURSE TO PERFORM ENVIRONMENTAL SAFETY RISK ASSESSMENT AND FALL RISK ASSESSMENT AND PROVIDE INSTRUCTION TO IMPLEMENT ENVIRONMENTAL SAFETY AND FALL PREVENTION STRATEGIES THROUGHOUT THE CERTIFICATION PERIOD. SKILLED NURSE WILL MAINTAIN SITUATIONAL AWARENESS AND WILL NOTIFY CLINICAL RIM ROLLER SETTER AND PHYSICIAN/PROVIDER WITH ANY CHANGE IN CONDITION.] [...] CARE WILL BE ESTABLISHED THAT MEETS PATIENT'S RESIDENTIAL NEEDS AND INCLUDES PATIENT GOAL FOR HOME [...] NOTED. PATIENT'S CALENDAR WAS REVIEWED REGARDING NEXT RESIDENTIAL VISIT. PATIENT ADVISED TO CALL [facility] WITH ANY QUESTIONS CONCERNS OR CHANGES IN HEALTH STATUS</paragraph> Encounters Start Date/Time End Date/Time Encounter Type Admission Type Attending [facility] Care Department Encounter ID Discharge Date Discharge Status Discharge Condition Discharge Reason Percent Goals Met 2025-08-04 00:00:00 2025-10-02 00:00:00 Outpatient ASHLEY EVERETT [facility] [id number] 17.1 4
--- OUTSIDE RECORDS SUMMARY | 2025-10-01 18:00 | XMS_ITS | Clinical Summary ---
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 OF ORAL HYPOGLYCEMIC DRUGS Active 09-24 00:00: 00 INDUSTRIAL GARAGE SERVICER (CURRENT) USE OF ASPIRIN Active 09-24 00:00: 00 INDUSTRIAL GARAGE SERVICER (CURRENT) USE OF ANTICOAGULAN TS Active 09-24 [...] 81 mg tablet 2024-09 00:00: 00 Yes [id number] 1 tablet DAILY 1 tablet DAILY (route: oral) Med Classific ation: Hematolog ical Agents atorvastati n 10 mg tablet 2024-09 00:00: 00 Yes [id number] 1 tablet DAILY 1 tablet DAILY (route: oral) Med Classific ation: Cardiovas cular Therapy Agents carvedilol 3.125 mg tablet 2024-09 00:00: 00 08-04 00:00 :00 No [id number] 1 tablet 2 TIMES DAILY 1 tablet 2 TIMES DAILY (route: oral) Med Classific ation: Cardiovas cular Therapy Agents Eliquis 5 mg tablet 2024-09 00:00: 00 Yes [id number] 1 tablet 2 TIMES DAILY 1 tablet 2 TIMES DAILY (route: oral) Med Classific ation: Hematolog ical Agents Entresto 24 mg-26 mg tablet 2024-09 00:00: 00 Yes [id number] 1 tablet 2 TIMES DAILY 1 tablet 2 TIMES DAILY (route: oral) Med Classific ation: Cardiovas cular Therapy Agents ferrous sulfate 325 mg (65 mg iron) tablet 2024-09 00:00: 00 Yes [id number] 1 tablet DAILY 1 tablet DAILY (route: oral) Med Classific ation: Electroly te Balance-N utritiona l Products furosemide 20 mg tablet 2024-09 00:00: 00 Yes [id number] 1 tablet EVERY OTHER DAY 1 tablet EVERY OTHER DAY (route: oral) Med Classific ation: Cardiovas cular Therapy Agents Jardiance 10 mg tablet 2024-09 00:00: 00 Yes [id number] 1 tablet DAILY 1 tablet DAILY (route: oral) Med Classific ation: Endocrine sertraline 25 mg tablet 2024-09 00:00: 00 Yes [id number] 1 tablet DAILY 1 tablet DAILY (route: oral) Med Classific ation: Central Nervous System Agents spironolact one 25 mg tablet 2024-09 00:00: 00 Yes [id number] 1 tablet DAILY 1 tablet DAILY (route: oral) Med Classific ation: Cardiovas cular Therapy Agents Wound Cleanser irrigation spray 2024-09 00:00: 00 08-04 00:00 :00 No [id number] Per instruc tions DIRECTED Per instructio ns DIRECTED (route: irrigation ) Med Classific ation: Dermatolo gical Pharmacy Compounded Medication 2024-09 00:00: 00 08-04 00:00 :00 No [id number] Per instruc tions DIRECTED Per instructio ns DIRECTED (route: Per Instructio ns) Med Classific ation: Custom acetaminoph en 325 mg capsule 2024-09 00:00: 00 Yes [id number] 2 capsule EVERY 4 HOURS 2 capsule EVERY 4 HOURS (route: oral) Med Classific ation: Analgesic , Anti-infl ammatory or Antipyret ic amiodarone 200 mg tablet 2024-09 00:00: 00 Yes [id number] 1 tablet 2 TIMES DAILY 1 tablet 2 TIMES DAILY (route: oral) Med Classific ation: Cardiovas cular Therapy Agents carvedilol 6.25 mg tablet 2024-09 00:00: 00 Yes [id number] 1 tablet 2 TIMES DAILY 1 tablet [...] MAINTAIN SITUATIONAL AWARENESS AND WILL NOTIFY CLINICAL GRAPHIC COORDINATOR AND PHYSICIAN/PROVIDER WITH ANY CHANGE IN CONDITION. [code = SKILLED NURSE TO PERFORM ENVIRONMENTAL SAFETY RISK ASSESSMENT AND FALL RISK ASSESSMENT AND PROVIDE INSTRUCTION TO IMPLEMENT ENVIRONMENTAL SAFETY AND FALL PREVENTION STRATEGIES THROUGHOUT THE CERTIFICATION PERIOD. SKILLED NURSE WILL MAINTAIN SITUATIONAL AWARENESS AND WILL NOTIFY CLINICAL GRAPHIC COORDINATOR AND PHYSICIAN/PROVIDER WITH ANY CHANGE IN CONDITION.] [...] CARE WILL BE ESTABLISHED THAT MEETS PATIENT'S LONG TERM NEEDS AND INCLUDES PATIENT GOAL FOR HOME [...] NOTED. PATIENT'S CALENDAR WAS REVIEWED REGARDING NEXT LONG TERM VISIT. PATIENT ADVISED TO CALL [facility] WITH ANY QUESTIONS CONCERNS OR CHANGES IN HEALTH STATUS</paragraph> Encounters Start Date/Time End Date/Time Encounter Type Admission Type Attending [facility] Care Department Encounter ID Discharge Date Discharge Status Discharge Condition Discharge Reason Percent Goals Met 2025-08-04 00:00:00 2025-10-02 00:00:00 Outpatient ASHLEY EVERETT [facility] [id number] 17.1 4
--- OUTSIDE RECORDS SUMMARY | 2025-10-01 18:00 | XMS_ITS | Clinical Summary ---
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) USE OF ORAL HYPOGLYCEMIC DRUGS Active 09-24 00:00: 00 EQUIPMENT SUPERINTENDENT (CURRENT) USE OF ASPIRIN Active 09-24 00:00: 00 EQUIPMENT SUPERINTENDENT (CURRENT) USE OF ANTICOAGULAN TS Active 09-24 [...] 81 mg tablet 2024-09 00:00: 00 Yes [id number] 1 tablet DAILY 1 tablet DAILY (route: oral) Med Classific ation: Hematolog ical Agents atorvastati n 10 mg tablet 2024-09 00:00: 00 Yes [id number] 1 tablet DAILY 1 tablet DAILY (route: oral) Med Classific ation: Cardiovas cular Therapy Agents carvedilol 3.125 mg tablet 2024-09 00:00: 00 08-04 00:00 :00 No [id number] 1 tablet 2 TIMES DAILY 1 tablet 2 TIMES DAILY (route: oral) Med Classific ation: Cardiovas cular Therapy Agents Eliquis 5 mg tablet 2024-09 00:00: 00 Yes [id number] 1 tablet 2 TIMES DAILY 1 tablet 2 TIMES DAILY (route: oral) Med Classific ation: Hematolog ical Agents Entresto 24 mg-26 mg tablet 2024-09 00:00: 00 Yes [id number] 1 tablet 2 TIMES DAILY 1 tablet 2 TIMES DAILY (route: oral) Med Classific ation: Cardiovas cular Therapy Agents ferrous sulfate 325 mg (65 mg iron) tablet 2024-09 00:00: 00 Yes [id number] 1 tablet DAILY 1 tablet DAILY (route: oral) Med Classific ation: Electroly te Balance-N utritiona l Products furosemide 20 mg tablet 2024-09 00:00: 00 Yes [id number] 1 tablet EVERY OTHER DAY 1 tablet EVERY OTHER DAY (route: oral) Med Classific ation: Cardiovas cular Therapy Agents Jardiance 10 mg tablet 2024-09 00:00: 00 Yes [id number] 1 tablet DAILY 1 tablet DAILY (route: oral) Med Classific ation: Endocrine sertraline 25 mg tablet 2024-09 00:00: 00 Yes [id number] 1 tablet DAILY 1 tablet DAILY (route: oral) Med Classific ation: Central Nervous System Agents spironolact one 25 mg tablet 2024-09 00:00: 00 Yes [id number] 1 tablet DAILY 1 tablet DAILY (route: oral) Med Classific ation: Cardiovas cular Therapy Agents Wound Cleanser irrigation spray 2024-09 00:00: 00 08-04 00:00 :00 No [id number] Per instruc tions DIRECTED Per instructio ns DIRECTED (route: irrigation ) Med Classific ation: Dermatolo gical Pharmacy Compounded Medication 2024-09 00:00: 00 08-04 00:00 :00 No [id number] Per instruc tions DIRECTED Per instructio ns DIRECTED (route: Per Instructio ns) Med Classific ation: Custom acetaminoph en 325 mg capsule 2024-09 00:00: 00 Yes [id number] 2 capsule EVERY 4 HOURS 2 capsule EVERY 4 HOURS (route: oral) Med Classific ation: Analgesic , Anti-infl ammatory or Antipyret ic amiodarone 200 mg tablet 2024-09 00:00: 00 Yes [id number] 1 tablet 2 TIMES DAILY 1 tablet 2 TIMES DAILY (route: oral) Med Classific ation: Cardiovas cular Therapy Agents carvedilol 6.25 mg tablet 2024-09 00:00: 00 Yes [id number] 1 tablet 2 TIMES DAILY 1 tablet [...] MAINTAIN SITUATIONAL AWARENESS AND WILL NOTIFY CLINICAL TECHNICAL SYSTEM ANALYST AND PHYSICIAN/PROVIDER WITH ANY CHANGE IN CONDITION. [code = SKILLED NURSE TO PERFORM ENVIRONMENTAL SAFETY RISK ASSESSMENT AND FALL RISK ASSESSMENT AND PROVIDE INSTRUCTION TO IMPLEMENT ENVIRONMENTAL SAFETY AND FALL PREVENTION STRATEGIES THROUGHOUT THE CERTIFICATION PERIOD. SKILLED NURSE WILL MAINTAIN SITUATIONAL AWARENESS AND WILL NOTIFY CLINICAL TECHNICAL SYSTEM ANALYST AND PHYSICIAN/PROVIDER WITH ANY CHANGE IN CONDITION.] [...] CARE WILL BE ESTABLISHED THAT MEETS PATIENT'S CUSTODIAL NEEDS AND INCLUDES PATIENT GOAL FOR HOME [...] NOTED. PATIENT'S CALENDAR WAS REVIEWED REGARDING NEXT CUSTODIAL VISIT. PATIENT ADVISED TO CALL [facility] WITH ANY QUESTIONS CONCERNS OR CHANGES IN HEALTH STATUS</paragraph> Encounters Start Date/Time End Date/Time Encounter Type Admission Type Attending [facility] Care Department Encounter ID Discharge Date Discharge Status Discharge Condition Discharge Reason Percent Goals Met 2025-08-04 00:00:00 2025-10-02 00:00:00 Outpatient ASHLEY EVERETT [facility] [id number] 17.1 4
--- OUTSIDE RECORDS SUMMARY | 2025-10-01 18:00 | XMS_ITS | Clinical Summary ---
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) USE OF ORAL HYPOGLYCEMIC DRUGS Active 09-24 00:00: 00 SPORTS INFORMATION DIRECTOR (CURRENT) USE OF ASPIRIN Active 09-24 00:00: 00 SPORTS INFORMATION DIRECTOR (CURRENT) USE OF ANTICOAGULAN TS Active 09-24 [...] 81 mg tablet 2024-09 00:00: 00 Yes [id number] 1 tablet DAILY 1 tablet DAILY (route: oral) Med Classific ation: Hematolog ical Agents atorvastati n 10 mg tablet 2024-09 00:00: 00 Yes [id number] 1 tablet DAILY 1 tablet DAILY (route: oral) Med Classific ation: Cardiovas cular Therapy Agents carvedilol 3.125 mg tablet 2024-09 00:00: 00 08-04 00:00 :00 No [id number] 1 tablet 2 TIMES DAILY 1 tablet 2 TIMES DAILY (route: oral) Med Classific ation: Cardiovas cular Therapy Agents Eliquis 5 mg tablet 2024-09 00:00: 00 Yes [id number] 1 tablet 2 TIMES DAILY 1 tablet 2 TIMES DAILY (route: oral) Med Classific ation: Hematolog ical Agents Entresto 24 mg-26 mg tablet 2024-09 00:00: 00 Yes [id number] 1 tablet 2 TIMES DAILY 1 tablet 2 TIMES DAILY (route: oral) Med Classific ation: Cardiovas cular Therapy Agents ferrous sulfate 325 mg (65 mg iron) tablet 2024-09 00:00: 00 Yes [id number] 1 tablet DAILY 1 tablet DAILY (route: oral) Med Classific ation: Electroly te Balance-N utritiona l Products furosemide 20 mg tablet 2024-09 00:00: 00 Yes [id number] 1 tablet EVERY OTHER DAY 1 tablet EVERY OTHER DAY (route: oral) Med Classific ation: Cardiovas cular Therapy Agents Jardiance 10 mg tablet 2024-09 00:00: 00 Yes [id number] 1 tablet DAILY 1 tablet DAILY (route: oral) Med Classific ation: Endocrine sertraline 25 mg tablet 2024-09 00:00: 00 Yes [id number] 1 tablet DAILY 1 tablet DAILY (route: oral) Med Classific ation: Central Nervous System Agents spironolact one 25 mg tablet 2024-09 00:00: 00 Yes [id number] 1 tablet DAILY 1 tablet DAILY (route: oral) Med Classific ation: Cardiovas cular Therapy Agents Wound Cleanser irrigation spray 2024-09 00:00: 00 08-04 00:00 :00 No [id number] Per instruc tions DIRECTED Per instructio ns DIRECTED (route: irrigation ) Med Classific ation: Dermatolo gical Pharmacy Compounded Medication 2024-09 00:00: 00 08-04 00:00 :00 No [id number] Per instruc tions DIRECTED Per instructio ns DIRECTED (route: Per Instructio ns) Med Classific ation: Custom acetaminoph en 325 mg capsule 2024-09 00:00: 00 Yes [id number] 2 capsule EVERY 4 HOURS 2 capsule EVERY 4 HOURS (route: oral) Med Classific ation: Analgesic , Anti-infl ammatory or Antipyret ic amiodarone 200 mg tablet 2024-09 00:00: 00 Yes [id number] 1 tablet 2 TIMES DAILY 1 tablet 2 TIMES DAILY (route: oral) Med Classific ation: Cardiovas cular Therapy Agents carvedilol 6.25 mg tablet 2024-09 00:00: 00 Yes [id number] 1 tablet 2 TIMES DAILY 1 tablet [...] MAINTAIN SITUATIONAL AWARENESS AND WILL NOTIFY CLINICAL HVAC SHEET METAL INSTALLER HELPER AND PHYSICIAN/PROVIDER WITH ANY CHANGE IN CONDITION. [code = SKILLED NURSE TO PERFORM ENVIRONMENTAL SAFETY RISK ASSESSMENT AND FALL RISK ASSESSMENT AND PROVIDE INSTRUCTION TO IMPLEMENT ENVIRONMENTAL SAFETY AND FALL PREVENTION STRATEGIES THROUGHOUT THE CERTIFICATION PERIOD. SKILLED NURSE WILL MAINTAIN SITUATIONAL AWARENESS AND WILL NOTIFY CLINICAL HVAC SHEET METAL INSTALLER HELPER AND PHYSICIAN/PROVIDER WITH ANY CHANGE IN CONDITION.] [...] CARE WILL BE ESTABLISHED THAT MEETS PATIENT'S RETIREMENT NEEDS AND INCLUDES PATIENT GOAL FOR HOME [...] NOTED. PATIENT'S CALENDAR WAS REVIEWED REGARDING NEXT RETIREMENT VISIT. PATIENT ADVISED TO CALL [facility] WITH ANY QUESTIONS CONCERNS OR CHANGES IN HEALTH STATUS</paragraph> Encounters Start Date/Time End Date/Time Encounter Type Admission Type Attending [facility] Care Department Encounter ID Discharge Date Discharge Status Discharge Condition Discharge Reason Percent Goals Met 2025-08-04 00:00:00 2025-10-02 00:00:00 Outpatient ASHLEY EVERETT [facility] [id number] 17.1 4
--- OUTSIDE RECORDS SUMMARY | 2025-10-01 18:00 | XMS_ITS | Clinical Summary ---
Author Organization Unknown Care Team Providers Care Marketing Content Manager Name Role Phone OSMIN BURNETT, RAJENDRA Unavailable Unavailable NAYLA RNASHLEY Unavailable Unavailable Payers Payer Name Policy Type Policy Number Effective Date Expira tion Date MEDICARE - [place] [facility] [id number] Problems Condition Name Condition Details Condition Category [...] OF DIGESTIVE TRACT Active 09-24 00:00: 00 MANAGED CARE PROVIDER (CURRENT) USE OF ORAL HYPOGLYCEMIC DRUGS Active 09-24 00:00: 00 MANAGED CARE PROVIDER (CURRENT) USE OF ASPIRIN Active 09-24 00:00: 00 MANAGED CARE PROVIDER (CURRENT) USE OF ANTICOAGULAN TS Active 09-24 [...] 81 mg tablet 2024-09 00:00: 00 Yes [id number] 1 tablet DAILY 1 tablet DAILY (route: oral) Med Classific ation: Hematolog ical Agents atorvastati n 10 mg tablet 2024-09 00:00: 00 Yes [id number] 1 tablet DAILY 1 tablet DAILY (route: oral) Med Classific ation: Cardiovas cular Therapy Agents carvedilol 3.125 mg tablet 2024-09 00:00: 00 08-04 00:00 :00 No [id number] 1 tablet 2 TIMES DAILY 1 tablet 2 TIMES DAILY (route: oral) Med Classific ation: Cardiovas cular Therapy Agents Eliquis 5 mg tablet 2024-09 00:00: 00 Yes [id number] 1 tablet 2 TIMES DAILY 1 tablet 2 TIMES DAILY (route: oral) Med Classific ation: Hematolog ical Agents Entresto 24 mg-26 mg tablet 2024-09 00:00: 00 Yes [id number] 1 tablet 2 TIMES DAILY 1 tablet 2 TIMES DAILY (route: oral) Med Classific ation: Cardiovas cular Therapy Agents ferrous sulfate 325 mg (65 mg iron) tablet 2024-09 00:00: 00 Yes [id number] 1 tablet DAILY 1 tablet DAILY (route: oral) Med Classific ation: Electroly te Balance-N utritiona l Products furosemide 20 mg tablet 2024-09 00:00: 00 Yes [id number] 1 tablet EVERY OTHER DAY 1 tablet EVERY OTHER DAY (route: oral) Med Classific ation: Cardiovas cular Therapy Agents Jardiance 10 mg tablet 2024-09 00:00: 00 Yes [id number] 1 tablet DAILY 1 tablet DAILY (route: oral) Med Classific ation: Endocrine sertraline 25 mg tablet 2024-09 00:00: 00 Yes [id number] 1 tablet DAILY 1 tablet DAILY (route: oral) Med Classific ation: Central Nervous System Agents spironolact one 25 mg tablet 2024-09 00:00: 00 Yes [id number] 1 tablet DAILY 1 tablet DAILY (route: oral) Med Classific ation: Cardiovas cular Therapy Agents Wound Cleanser irrigation spray 2024-09 00:00: 00 08-04 00:00 :00 No [id number] Per instruc tions DIRECTED Per instructio ns DIRECTED (route: irrigation ) Med Classific ation: Dermatolo gical Pharmacy Compounded Medication 2024-09 00:00: 00 08-04 00:00 :00 No [id number] Per instruc tions DIRECTED Per instructio ns DIRECTED (route: Per Instructio ns) Med Classific ation: Custom acetaminoph en 325 mg capsule 2024-09 00:00: 00 Yes [id number] 2 capsule EVERY 4 HOURS 2 capsule EVERY 4 HOURS (route: oral) Med Classific ation: Analgesic , Anti-infl ammatory or Antipyret ic amiodarone 200 mg tablet 2024-09 00:00: 00 Yes [id number] 1 tablet 2 TIMES DAILY 1 tablet 2 TIMES DAILY (route: oral) Med Classific ation: Cardiovas cular Therapy Agents carvedilol 6.25 mg tablet 2024-09 00:00: 00 Yes [id number] 1 tablet 2 TIMES DAILY 1 tablet [...] MAINTAIN SITUATIONAL AWARENESS AND WILL NOTIFY CLINICAL NEMATOLOGY TEACHER AND PHYSICIAN/PROVIDER WITH ANY CHANGE IN CONDITION. [code = SKILLED NURSE TO PERFORM ENVIRONMENTAL SAFETY RISK ASSESSMENT AND FALL RISK ASSESSMENT AND PROVIDE INSTRUCTION TO IMPLEMENT ENVIRONMENTAL SAFETY AND FALL PREVENTION STRATEGIES THROUGHOUT THE CERTIFICATION PERIOD. SKILLED NURSE WILL MAINTAIN SITUATIONAL AWARENESS AND WILL NOTIFY CLINICAL NEMATOLOGY TEACHER AND PHYSICIAN/PROVIDER WITH ANY CHANGE IN CONDITION.] [...] CARE WILL BE ESTABLISHED THAT MEETS PATIENT'S SENIOR CARE NEEDS AND INCLUDES PATIENT GOAL FOR HOME [...] NOTED. PATIENT'S CALENDAR WAS REVIEWED REGARDING NEXT SENIOR CARE VISIT. PATIENT ADVISED TO CALL [facility] WITH ANY QUESTIONS CONCERNS OR CHANGES IN HEALTH STATUS</paragraph> Encounters Start Date/Time End Date/Time Encounter Type Admission Type Attending [facility] Care Department Encounter ID Discharge Date Discharge Status Discharge Condition Discharge Reason Percent Goals Met 2025-08-04 00:00:00 2025-10-02 00:00:00 Outpatient ASHLEY EVERETT [facility] [id number] 17.1 4
--- OUTSIDE RECORDS SUMMARY | 2025-10-01 18:00 | XMS_ITS | Clinical Summary ---
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 (CURRENT) USE OF ORAL HYPOGLYCEMIC DRUGS Active 09-24 00:00: 00 NEUROPHYSIOLOGICAL TECHNICIAN (CURRENT) USE OF ASPIRIN Active 09-24 00:00: 00 NEUROPHYSIOLOGICAL TECHNICIAN (CURRENT) USE OF ANTICOAGULAN TS Active 09-24 [...] 81 mg tablet 2024-09 00:00: 00 Yes [id number] 1 tablet DAILY 1 tablet DAILY (route: oral) Med Classific ation: Hematolog ical Agents atorvastati n 10 mg tablet 2024-09 00:00: 00 Yes [id number] 1 tablet DAILY 1 tablet DAILY (route: oral) Med Classific ation: Cardiovas cular Therapy Agents carvedilol 3.125 mg tablet 2024-09 00:00: 00 08-04 00:00 :00 No [id number] 1 tablet 2 TIMES DAILY 1 tablet 2 TIMES DAILY (route: oral) Med Classific ation: Cardiovas cular Therapy Agents Eliquis 5 mg tablet 2024-09 00:00: 00 Yes [id number] 1 tablet 2 TIMES DAILY 1 tablet 2 TIMES DAILY (route: oral) Med Classific ation: Hematolog ical Agents Entresto 24 mg-26 mg tablet 2024-09 00:00: 00 Yes [id number] 1 tablet 2 TIMES DAILY 1 tablet 2 TIMES DAILY (route: oral) Med Classific ation: Cardiovas cular Therapy Agents ferrous sulfate 325 mg (65 mg iron) tablet 2024-09 00:00: 00 Yes [id number] 1 tablet DAILY 1 tablet DAILY (route: oral) Med Classific ation: Electroly te Balance-N utritiona l Products furosemide 20 mg tablet 2024-09 00:00: 00 Yes [id number] 1 tablet EVERY OTHER DAY 1 tablet EVERY OTHER DAY (route: oral) Med Classific ation: Cardiovas cular Therapy Agents Jardiance 10 mg tablet 2024-09 00:00: 00 Yes [id number] 1 tablet DAILY 1 tablet DAILY (route: oral) Med Classific ation: Endocrine sertraline 25 mg tablet 2024-09 00:00: 00 Yes [id number] 1 tablet DAILY 1 tablet DAILY (route: oral) Med Classific ation: Central Nervous System Agents spironolact one 25 mg tablet 2024-09 00:00: 00 Yes [id number] 1 tablet DAILY 1 tablet DAILY (route: oral) Med Classific ation: Cardiovas cular Therapy Agents Wound Cleanser irrigation spray 2024-09 00:00: 00 08-04 00:00 :00 No [id number] Per instruc tions DIRECTED Per instructio ns DIRECTED (route: irrigation ) Med Classific ation: Dermatolo gical Pharmacy Compounded Medication 2024-09 00:00: 00 08-04 00:00 :00 No [id number] Per instruc tions DIRECTED Per instructio ns DIRECTED (route: Per Instructio ns) Med Classific ation: Custom acetaminoph en 325 mg capsule 2024-09 00:00: 00 Yes [id number] 2 capsule EVERY 4 HOURS 2 capsule EVERY 4 HOURS (route: oral) Med Classific ation: Analgesic , Anti-infl ammatory or Antipyret ic amiodarone 200 mg tablet 2024-09 00:00: 00 Yes [id number] 1 tablet 2 TIMES DAILY 1 tablet 2 TIMES DAILY (route: oral) Med Classific ation: Cardiovas cular Therapy Agents carvedilol 6.25 mg tablet 2024-09 00:00: 00 Yes [id number] 1 tablet 2 TIMES DAILY 1 tablet [...] MAINTAIN SITUATIONAL AWARENESS AND WILL NOTIFY CLINICAL AUTOMATION DESIGN ENGINEER AND PHYSICIAN/PROVIDER WITH ANY CHANGE IN CONDITION. [code = SKILLED NURSE TO PERFORM ENVIRONMENTAL SAFETY RISK ASSESSMENT AND FALL RISK ASSESSMENT AND PROVIDE INSTRUCTION TO IMPLEMENT ENVIRONMENTAL SAFETY AND FALL PREVENTION STRATEGIES THROUGHOUT THE CERTIFICATION PERIOD. SKILLED NURSE WILL MAINTAIN SITUATIONAL AWARENESS AND WILL NOTIFY CLINICAL AUTOMATION DESIGN ENGINEER AND PHYSICIAN/PROVIDER WITH ANY CHANGE IN CONDITION.] [...] CARE WILL BE ESTABLISHED THAT MEETS PATIENT'S [facility] NEEDS AND INCLUDES PATIENT GOAL FOR HOME [...] NOTED. PATIENT'S CALENDAR WAS REVIEWED REGARDING NEXT [facility] VISIT. PATIENT ADVISED TO CALL [facility] WITH ANY QUESTIONS CONCERNS OR CHANGES IN HEALTH STATUS</paragraph> Encounters Start Date/Time End Date/Time Encounter Type Admission Type Attending [facility] Care Department Encounter ID Discharge Date Discharge Status Discharge Condition Discharge Reason Percent Goals Met 2025-08-04 00:00:00 2025-10-02 00:00:00 Outpatient ASHLEY EVERETT [facility] [id number] 17.1 4
--- OUTSIDE RECORDS SUMMARY | 2025-10-01 18:00 | XMS_ITS | Clinical Summary ---
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 CLINICAL PHARMACY (CURRENT) USE OF ORAL HYPOGLYCEMIC DRUGS Active 09-24 00:00: 00 MANAGER CLINICAL PHARMACY (CURRENT) USE OF ASPIRIN Active 09-24 00:00: 00 MANAGER CLINICAL PHARMACY (CURRENT) USE OF ANTICOAGULAN TS Active 09-24 [...] 81 mg tablet 2024-09 00:00: 00 Yes [id number] 1 tablet DAILY 1 tablet DAILY (route: oral) Med Classific ation: Hematolog ical Agents atorvastati n 10 mg tablet 2024-09 00:00: 00 Yes [id number] 1 tablet DAILY 1 tablet DAILY (route: oral) Med Classific ation: Cardiovas cular Therapy Agents carvedilol 3.125 mg tablet 2024-09 00:00: 00 08-04 00:00 :00 No [id number] 1 tablet 2 TIMES DAILY 1 tablet 2 TIMES DAILY (route: oral) Med Classific ation: Cardiovas cular Therapy Agents Eliquis 5 mg tablet 2024-09 00:00: 00 Yes [id number] 1 tablet 2 TIMES DAILY 1 tablet 2 TIMES DAILY (route: oral) Med Classific ation: Hematolog ical Agents Entresto 24 mg-26 mg tablet 2024-09 00:00: 00 Yes [id number] 1 tablet 2 TIMES DAILY 1 tablet 2 TIMES DAILY (route: oral) Med Classific ation: Cardiovas cular Therapy Agents ferrous sulfate 325 mg (65 mg iron) tablet 2024-09 00:00: 00 Yes [id number] 1 tablet DAILY 1 tablet DAILY (route: oral) Med Classific ation: Electroly te Balance-N utritiona l Products furosemide 20 mg tablet 2024-09 00:00: 00 Yes [id number] 1 tablet EVERY OTHER DAY 1 tablet EVERY OTHER DAY (route: oral) Med Classific ation: Cardiovas cular Therapy Agents Jardiance 10 mg tablet 2024-09 00:00: 00 Yes [id number] 1 tablet DAILY 1 tablet DAILY (route: oral) Med Classific ation: Endocrine sertraline 25 mg tablet 2024-09 00:00: 00 Yes [id number] 1 tablet DAILY 1 tablet DAILY (route: oral) Med Classific ation: Central Nervous System Agents spironolact one 25 mg tablet 2024-09 00:00: 00 Yes [id number] 1 tablet DAILY 1 tablet DAILY (route: oral) Med Classific ation: Cardiovas cular Therapy Agents Wound Cleanser irrigation spray 2024-09 00:00: 00 08-04 00:00 :00 No [id number] Per instruc tions DIRECTED Per instructio ns DIRECTED (route: irrigation ) Med Classific ation: Dermatolo gical Pharmacy Compounded Medication 2024-09 00:00: 00 08-04 00:00 :00 No [id number] Per instruc tions DIRECTED Per instructio ns DIRECTED (route: Per Instructio ns) Med Classific ation: Custom acetaminoph en 325 mg capsule 2024-09 00:00: 00 Yes [id number] 2 capsule EVERY 4 HOURS 2 capsule EVERY 4 HOURS (route: oral) Med Classific ation: Analgesic , Anti-infl ammatory or Antipyret ic amiodarone 200 mg tablet 2024-09 00:00: 00 Yes [id number] 1 tablet 2 TIMES DAILY 1 tablet 2 TIMES DAILY (route: oral) Med Classific ation: Cardiovas cular Therapy Agents carvedilol 6.25 mg tablet 2024-09 00:00: 00 Yes [id number] 1 tablet 2 TIMES DAILY 1 tablet [...] MAINTAIN SITUATIONAL AWARENESS AND WILL NOTIFY CLINICAL WAITER/WAITRESS THIRD CLASS AND PHYSICIAN/PROVIDER WITH ANY CHANGE IN CONDITION. [code = SKILLED NURSE TO PERFORM ENVIRONMENTAL SAFETY RISK ASSESSMENT AND FALL RISK ASSESSMENT AND PROVIDE INSTRUCTION TO IMPLEMENT ENVIRONMENTAL SAFETY AND FALL PREVENTION STRATEGIES THROUGHOUT THE CERTIFICATION PERIOD. SKILLED NURSE WILL MAINTAIN SITUATIONAL AWARENESS AND WILL NOTIFY CLINICAL WAITER/WAITRESS THIRD CLASS AND PHYSICIAN/PROVIDER WITH ANY CHANGE IN CONDITION.] [...] CARE WILL BE ESTABLISHED THAT MEETS PATIENT'S ALF NEEDS AND INCLUDES PATIENT GOAL FOR HOME [...] NOTED. PATIENT'S CALENDAR WAS REVIEWED REGARDING NEXT ALF VISIT. PATIENT ADVISED TO CALL [facility] WITH ANY QUESTIONS CONCERNS OR CHANGES IN HEALTH STATUS</paragraph> Encounters Start Date/Time End Date/Time Encounter Type Admission Type Attending [facility] Care Department Encounter ID Discharge Date Discharge Status Discharge Condition Discharge Reason Percent Goals Met 2025-08-04 00:00:00 2025-10-02 00:00:00 Outpatient ASHLEY EVERETT [facility] [id number] 17.1 4
--- OUTSIDE RECORDS SUMMARY | 2025-10-01 18:00 | XMS_ITS | Clinical Summary ---
Author Organization Unknown Care Team Providers Care Etiquette Coach Name Role Phone OSMIN BURNETT, RAJENDRA Unavailable Unavailable NAYLA RNASHLEY Unavailable Unavailable Payers Payer Name Policy Type Policy Number Effective Date Expira tion Date MEDICARE - [place] [facility] [id number] Problems Condition Name Condition Details Condition Category [...] OF DIGESTIVE TRACT Active 09-24 00:00: 00 [place]FF[place] (CURRENT) USE OF ORAL HYPOGLYCEMIC DRUGS Active 09-24 00:00: 00 [place]AUFFE[place] (CURRENT) USE OF ASPIRIN Active 09-24 00:00: 00 CHAUFFEUR (CURRENT) USE OF ANTICOAGULAN TS Active 09-24 [...] 81 mg tablet 2024-09 00:00: 00 Yes [id number] 1 tablet DAILY 1 tablet DAILY (route: oral) Med Classific ation: Hematolog ical Agents atorvastati n 10 mg tablet 2024-09 00:00: 00 Yes [id number] 1 tablet DAILY 1 tablet DAILY (route: oral) Med Classific ation: Cardiovas cular Therapy Agents carvedilol 3.125 mg tablet 2024-09 00:00: 00 08-04 00:00 :00 No [id number] 1 tablet 2 TIMES DAILY 1 tablet 2 TIMES DAILY (route: oral) Med Classific ation: Cardiovas cular Therapy Agents Eliquis 5 mg tablet 2024-09 00:00: 00 Yes [id number] 1 tablet 2 TIMES DAILY 1 tablet 2 TIMES DAILY (route: oral) Med Classific ation: Hematolog ical Agents Entresto 24 mg-26 mg tablet 2024-09 00:00: 00 Yes [id number] 1 tablet 2 TIMES DAILY 1 tablet 2 TIMES DAILY (route: oral) Med Classific ation: Cardiovas cular Therapy Agents ferrous sulfate 325 mg (65 mg iron) tablet 2024-09 00:00: 00 Yes [id number] 1 tablet DAILY 1 tablet DAILY (route: oral) Med Classific ation: Electroly te Balance-N utritiona l Products furosemide 20 mg tablet 2024-09 00:00: 00 Yes [id number] 1 tablet EVERY OTHER DAY 1 tablet EVERY OTHER DAY (route: oral) Med Classific ation: Cardiovas cular Therapy Agents Jardiance 10 mg tablet 2024-09 00:00: 00 Yes [id number] 1 tablet DAILY 1 tablet DAILY (route: oral) Med Classific ation: Endocrine sertraline 25 mg tablet 2024-09 00:00: 00 Yes [id number] 1 tablet DAILY 1 tablet DAILY (route: oral) Med Classific ation: Central Nervous System Agents spironolact one 25 mg tablet 2024-09 00:00: 00 Yes [id number] 1 tablet DAILY 1 tablet DAILY (route: oral) Med Classific ation: Cardiovas cular Therapy Agents Wound Cleanser irrigation spray 2024-09 00:00: 00 08-04 00:00 :00 No [id number] Per instruc tions DIRECTED Per instructio ns DIRECTED (route: irrigation ) Med Classific ation: Dermatolo gical Pharmacy Compounded Medication 2024-09 00:00: 00 08-04 00:00 :00 No [id number] Per instruc tions DIRECTED Per instructio ns DIRECTED (route: Per Instructio ns) Med Classific ation: Custom acetaminoph en 325 mg capsule 2024-09 00:00: 00 Yes [id number] 2 capsule EVERY 4 HOURS 2 capsule EVERY 4 HOURS (route: oral) Med Classific ation: Analgesic , Anti-infl ammatory or Antipyret ic amiodarone 200 mg tablet 2024-09 00:00: 00 Yes [id number] 1 tablet 2 TIMES DAILY 1 tablet 2 TIMES DAILY (route: oral) Med Classific ation: Cardiovas cular Therapy Agents carvedilol 6.25 mg tablet 2024-09 00:00: 00 Yes [id number] 1 tablet 2 TIMES DAILY 1 tablet [...] MAINTAIN SITUATIONAL AWARENESS AND WILL NOTIFY CLINICAL AUDITOR TAX AND PHYSICIAN/PROVIDER WITH ANY CHANGE IN CONDITION. [code = SKILLED NURSE TO PERFORM ENVIRONMENTAL SAFETY RISK ASSESSMENT AND FALL RISK ASSESSMENT AND PROVIDE INSTRUCTION TO IMPLEMENT ENVIRONMENTAL SAFETY AND FALL PREVENTION STRATEGIES THROUGHOUT THE CERTIFICATION PERIOD. SKILLED NURSE WILL MAINTAIN SITUATIONAL AWARENESS AND WILL NOTIFY CLINICAL AUDITOR TAX AND PHYSICIAN/PROVIDER WITH ANY CHANGE IN CONDITION.] [...] CARE WILL BE ESTABLISHED THAT MEETS PATIENT'S [facility] NEEDS AND INCLUDES PATIENT GOAL FOR HOME [...] NOTED. PATIENT'S CALENDAR WAS REVIEWED REGARDING NEXT [facility] VISIT. PATIENT ADVISED TO CALL [facility] WITH ANY QUESTIONS CONCERNS OR CHANGES IN HEALTH STATUS</paragraph> Encounters Start Date/Time End Date/Time Encounter Type Admission Type Attending [facility] Care Department Encounter ID Discharge Date Discharge Status Discharge Condition Discharge Reason Percent Goals Met 2025-08-04 00:00:00 2025-10-02 00:00:00 Outpatient ASHLEY EVERETT [facility] [id number] 17.1 4
--- OUTSIDE RECORDS SUMMARY | 2025-10-01 18:00 | XMS_ITS | Clinical Summary ---
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 (CURRENT) USE OF ORAL HYPOGLYCEMIC DRUGS Active 09-24 00:00: 00 PLUG CUTTING MACHINE OPERATOR (CURRENT) USE OF ASPIRIN Active 09-24 00:00: 00 PLUG CUTTING MACHINE OPERATOR (CURRENT) USE OF ANTICOAGULAN TS Active 09-24 [...] 81 mg tablet 2024-09 00:00: 00 Yes [id number] 1 tablet DAILY 1 tablet DAILY (route: oral) Med Classific ation: Hematolog ical Agents atorvastati n 10 mg tablet 2024-09 00:00: 00 Yes [id number] 1 tablet DAILY 1 tablet DAILY (route: oral) Med Classific ation: Cardiovas cular Therapy Agents carvedilol 3.125 mg tablet 2024-09 00:00: 00 08-04 00:00 :00 No [id number] 1 tablet 2 TIMES DAILY 1 tablet 2 TIMES DAILY (route: oral) Med Classific ation: Cardiovas cular Therapy Agents Eliquis 5 mg tablet 2024-09 00:00: 00 Yes [id number] 1 tablet 2 TIMES DAILY 1 tablet 2 TIMES DAILY (route: oral) Med Classific ation: Hematolog ical Agents Entresto 24 mg-26 mg tablet 2024-09 00:00: 00 Yes [id number] 1 tablet 2 TIMES DAILY 1 tablet 2 TIMES DAILY (route: oral) Med Classific ation: Cardiovas cular Therapy Agents ferrous sulfate 325 mg (65 mg iron) tablet 2024-09 00:00: 00 Yes [id number] 1 tablet DAILY 1 tablet DAILY (route: oral) Med Classific ation: Electroly te Balance-N utritiona l Products furosemide 20 mg tablet 2024-09 00:00: 00 Yes [id number] 1 tablet EVERY OTHER DAY 1 tablet EVERY OTHER DAY (route: oral) Med Classific ation: Cardiovas cular Therapy Agents Jardiance 10 mg tablet 2024-09 00:00: 00 Yes [id number] 1 tablet DAILY 1 tablet DAILY (route: oral) Med Classific ation: Endocrine sertraline 25 mg tablet 2024-09 00:00: 00 Yes [id number] 1 tablet DAILY 1 tablet DAILY (route: oral) Med Classific ation: Central Nervous System Agents spironolact one 25 mg tablet 2024-09 00:00: 00 Yes [id number] 1 tablet DAILY 1 tablet DAILY (route: oral) Med Classific ation: Cardiovas cular Therapy Agents Wound Cleanser irrigation spray 2024-09 00:00: 00 08-04 00:00 :00 No [id number] Per instruc tions DIRECTED Per instructio ns DIRECTED (route: irrigation ) Med Classific ation: Dermatolo gical Pharmacy Compounded Medication 2024-09 00:00: 00 08-04 00:00 :00 No [id number] Per instruc tions DIRECTED Per instructio ns DIRECTED (route: Per Instructio ns) Med Classific ation: Custom acetaminoph en 325 mg capsule 2024-09 00:00: 00 Yes [id number] 2 capsule EVERY 4 HOURS 2 capsule EVERY 4 HOURS (route: oral) Med Classific ation: Analgesic , Anti-infl ammatory or Antipyret ic amiodarone 200 mg tablet 2024-09 00:00: 00 Yes [id number] 1 tablet 2 TIMES DAILY 1 tablet 2 TIMES DAILY (route: oral) Med Classific ation: Cardiovas cular Therapy Agents carvedilol 6.25 mg tablet 2024-09 00:00: 00 Yes [id number] 1 tablet 2 TIMES DAILY 1 tablet [...] MAINTAIN SITUATIONAL AWARENESS AND WILL NOTIFY CLINICAL CONTACT CENTER ASSOCIATE AND PHYSICIAN/PROVIDER WITH ANY CHANGE IN CONDITION. [code = SKILLED NURSE TO PERFORM ENVIRONMENTAL SAFETY RISK ASSESSMENT AND FALL RISK ASSESSMENT AND PROVIDE INSTRUCTION TO IMPLEMENT ENVIRONMENTAL SAFETY AND FALL PREVENTION STRATEGIES THROUGHOUT THE CERTIFICATION PERIOD. SKILLED NURSE WILL MAINTAIN SITUATIONAL AWARENESS AND WILL NOTIFY CLINICAL CONTACT CENTER ASSOCIATE AND PHYSICIAN/PROVIDER WITH ANY CHANGE IN CONDITION.] [...] 2025-08-04 00:00:00 2025-10-02 00:00:00 Outpatient ASHLEY EVERETT [facility] [id number] 17.1 4
--- OUTSIDE RECORDS SUMMARY | 2025-10-01 18:00 | XMS_ITS | Clinical Summary ---
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 Dedicated Truck Driver Name Role Phone OSMIN BURNETT, RAJENDRA Unavailable Unavailable NAYLA RNASHLEY Unavailable Unavailable Payers Payer Name Policy Type Policy Number Effective Date Expira tion Date MEDICARE - [place] [facility] [id number] Problems Condition Name Condition Details Condition Category [...] OF DIGESTIVE TRACT Active 09-24 00:00: [address] SUPERVISOR (CURRENT) USE OF ORAL HYPOGLYCEMIC DRUGS Active 09-24 00:00: [address] SUPERVISOR (CURRENT) USE OF ASPIRIN Active 09-24 00:00: [address] SUPERVISOR (CURRENT) USE OF ANTICOAGULAN TS Active 09-24 [...] 81 mg tablet 2024-09 00:00: 00 Yes [id number] 1 tablet DAILY 1 tablet DAILY (route: oral) Med Classific ation: Hematolog ical Agents atorvastati n 10 mg tablet 2024-09 00:00: 00 Yes [id number] 1 tablet DAILY 1 tablet DAILY (route: oral) Med Classific ation: Cardiovas cular Therapy Agents carvedilol 3.125 mg tablet 2024-09 00:00: 00 08-04 00:00 :00 No [id number] 1 tablet 2 TIMES DAILY 1 tablet 2 TIMES DAILY (route: oral) Med Classific ation: Cardiovas cular Therapy Agents Eliquis 5 mg tablet 2024-09 00:00: 00 Yes [id number] 1 tablet 2 TIMES DAILY 1 tablet 2 TIMES DAILY (route: oral) Med Classific ation: Hematolog ical Agents Entresto 24 mg-26 mg tablet 2024-09 00:00: 00 Yes [id number] 1 tablet 2 TIMES DAILY 1 tablet 2 TIMES DAILY (route: oral) Med Classific ation: Cardiovas cular Therapy Agents ferrous sulfate 325 mg (65 mg iron) tablet 2024-09 00:00: 00 Yes [id number] 1 tablet DAILY 1 tablet DAILY (route: oral) Med Classific ation: Electroly te Balance-N utritiona l Products furosemide 20 mg tablet 2024-09 00:00: 00 Yes [id number] 1 tablet EVERY OTHER DAY 1 tablet EVERY OTHER DAY (route: oral) Med Classific ation: Cardiovas cular Therapy Agents Jardiance 10 mg tablet 2024-09 00:00: 00 Yes [id number] 1 tablet DAILY 1 tablet DAILY (route: oral) Med Classific ation: Endocrine sertraline 25 mg tablet 2024-09 00:00: 00 Yes [id number] 1 tablet DAILY 1 tablet DAILY (route: oral) Med Classific ation: Central Nervous System Agents spironolact one 25 mg tablet 2024-09 00:00: 00 Yes [id number] 1 tablet DAILY 1 tablet DAILY (route: oral) Med Classific ation: Cardiovas cular Therapy Agents Wound Cleanser irrigation spray 2024-09 00:00: 00 08-04 00:00 :00 No [id number] Per instruc tions DIRECTED Per instructio ns DIRECTED (route: irrigation ) Med Classific ation: Dermatolo gical Pharmacy Compounded Medication 2024-09 00:00: 00 08-04 00:00 :00 No [id number] Per instruc tions DIRECTED Per instructio ns DIRECTED (route: Per Instructio ns) Med Classific ation: Custom acetaminoph en 325 mg capsule 2024-09 00:00: 00 Yes [id number] 2 capsule EVERY 4 HOURS 2 capsule EVERY 4 HOURS (route: oral) Med Classific ation: Analgesic , Anti-infl ammatory or Antipyret ic amiodarone 200 mg tablet 2024-09 00:00: 00 Yes [id number] 1 tablet 2 TIMES DAILY 1 tablet 2 TIMES DAILY (route: oral) Med Classific ation: Cardiovas cular Therapy Agents carvedilol 6.25 mg tablet 2024-09 00:00: 00 Yes [id number] 1 tablet 2 TIMES DAILY 1 tablet [...] MAINTAIN SITUATIONAL AWARENESS AND WILL NOTIFY CLINICAL PATIENT COORDINATOR AND PHYSICIAN/PROVIDER WITH ANY CHANGE IN CONDITION. [code = SKILLED NURSE TO PERFORM ENVIRONMENTAL SAFETY RISK ASSESSMENT AND FALL RISK ASSESSMENT AND PROVIDE INSTRUCTION TO IMPLEMENT ENVIRONMENTAL SAFETY AND FALL PREVENTION STRATEGIES THROUGHOUT THE CERTIFICATION PERIOD. SKILLED NURSE WILL MAINTAIN SITUATIONAL AWARENESS AND WILL NOTIFY CLINICAL PATIENT COORDINATOR AND PHYSICIAN/PROVIDER WITH ANY CHANGE IN [...] End Date/Time Encounter Type Admission Type Attending [facility] Care Department Encounter ID Discharge Date Discharge Status Discharge Condition Discharge Reason Percent Goals Met 2025-08-04 00:00:00 2025-10-02 00:00:00 Outpatient ASHLEY EVERETT [facility] [id number] 17.1 4
--- OUTSIDE RECORDS SUMMARY | 2025-10-01 18:00 | XMS_ITS | Clinical Summary ---
Author Organization Unknown Care Team Providers Care Manager Of Allied [facility] Services Name Role Phone OSMIN BURNETT, RAJENDRA Unavailable Unavailable NAYLA RNASHLEY Unavailable Unavailable Payers Payer Name Policy Type Policy Number Effective Date Expira tion Date MEDICARE - [place] [facility] [id number] Problems Condition Name Condition Details Condition Category [...] OF DIGESTIVE TRACT Active 09-24 00:00: 00 CONE PICKER (CURRENT) USE OF ORAL HYPOGLYCEMIC DRUGS Active 09-24 00:00: 00 CONE PICKER (CURRENT) USE OF ASPIRIN Active 09-24 00:00: 00 CONE PICKER (CURRENT) USE OF ANTICOAGULAN TS Active 09-24 [...] 81 mg tablet 2024-09 00:00: 00 Yes [id number] 1 tablet DAILY 1 tablet DAILY (route: oral) Med Classific ation: Hematolog ical Agents atorvastati n 10 mg tablet 2024-09 00:00: 00 Yes [id number] 1 tablet DAILY 1 tablet DAILY (route: oral) Med Classific ation: Cardiovas cular Therapy Agents carvedilol 3.125 mg tablet 2024-09 00:00: 00 08-04 00:00 :00 No [id number] 1 tablet 2 TIMES DAILY 1 tablet 2 TIMES DAILY (route: oral) Med Classific ation: Cardiovas cular Therapy Agents Eliquis 5 mg tablet 2024-09 00:00: 00 Yes [id number] 1 tablet 2 TIMES DAILY 1 tablet 2 TIMES DAILY (route: oral) Med Classific ation: Hematolog ical Agents Entresto 24 mg-26 mg tablet 2024-09 00:00: 00 Yes [id number] 1 tablet 2 TIMES DAILY 1 tablet 2 TIMES DAILY (route: oral) Med Classific ation: Cardiovas cular Therapy Agents ferrous sulfate 325 mg (65 mg iron) tablet 2024-09 00:00: 00 Yes [id number] 1 tablet DAILY 1 tablet DAILY (route: oral) Med Classific ation: Electroly te Balance-N utritiona l Products furosemide 20 mg tablet 2024-09 00:00: 00 Yes [id number] 1 tablet EVERY OTHER DAY 1 tablet EVERY OTHER DAY (route: oral) Med Classific ation: Cardiovas cular Therapy Agents Jardiance 10 mg tablet 2024-09 00:00: 00 Yes [id number] 1 tablet DAILY 1 tablet DAILY (route: oral) Med Classific ation: Endocrine sertraline 25 mg tablet 2024-09 00:00: 00 Yes [id number] 1 tablet DAILY 1 tablet DAILY (route: oral) Med Classific ation: Central Nervous System Agents spironolact one 25 mg tablet 2024-09 00:00: 00 Yes [id number] 1 tablet DAILY 1 tablet DAILY (route: oral) Med Classific ation: Cardiovas cular Therapy Agents Wound Cleanser irrigation spray 2024-09 00:00: 00 08-04 00:00 :00 No [id number] Per instruc tions DIRECTED Per instructio ns DIRECTED (route: irrigation ) Med Classific ation: Dermatolo gical Pharmacy Compounded Medication 2024-09 00:00: 00 08-04 00:00 :00 No [id number] Per instruc tions DIRECTED Per instructio ns DIRECTED (route: Per Instructio ns) Med Classific ation: Custom acetaminoph en 325 mg capsule 2024-09 00:00: 00 Yes [id number] 2 capsule EVERY 4 HOURS 2 capsule EVERY 4 HOURS (route: oral) Med Classific ation: Analgesic , Anti-infl ammatory or Antipyret ic amiodarone 200 mg tablet 2024-09 00:00: 00 Yes [id number] 1 tablet 2 TIMES DAILY 1 tablet 2 TIMES DAILY (route: oral) Med Classific ation: Cardiovas cular Therapy Agents carvedilol 6.25 mg tablet 2024-09 00:00: 00 Yes [id number] 1 tablet 2 TIMES DAILY 1 tablet [...] MAINTAIN SITUATIONAL AWARENESS AND WILL NOTIFY CLINICAL MASTER PILOT AND PHYSICIAN/PROVIDER WITH ANY CHANGE IN CONDITION. [code = SKILLED NURSE TO PERFORM ENVIRONMENTAL SAFETY RISK ASSESSMENT AND FALL RISK ASSESSMENT AND PROVIDE INSTRUCTION TO IMPLEMENT ENVIRONMENTAL SAFETY AND FALL PREVENTION STRATEGIES THROUGHOUT THE CERTIFICATION PERIOD. SKILLED NURSE WILL MAINTAIN SITUATIONAL AWARENESS AND WILL NOTIFY CLINICAL MASTER PILOT AND PHYSICIAN/PROVIDER WITH ANY CHANGE IN CONDITION.] [...] Date/Time Encounter Type Admission Type Attending [facility] Care Department Encounter ID Discharge Date Discharge Status Discharge Condition Discharge Reason Percent Goals Met 2025-08-04 00:00:00 2025-10-02 00:00:00 Outpatient ASHLEY EVERETT [facility] [id number] 17.1 4
--- OUTSIDE RECORDS SUMMARY | 2025-10-01 18:00 | XMS_ITS | Clinical Summary ---
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 AND TACTICS OFFICER (CURRENT) USE OF ORAL HYPOGLYCEMIC DRUGS Active 09-24 00:00: 00 SPECIAL WEAPONS AND TACTICS OFFICER (CURRENT) USE OF ASPIRIN Active 09-24 00:00: 00 SPECIAL WEAPONS AND TACTICS OFFICER (CURRENT) USE OF ANTICOAGULAN TS Active 09-24 [...] 81 mg tablet 2024-09 00:00: 00 Yes [id number] 1 tablet DAILY 1 tablet DAILY (route: oral) Med Classific ation: Hematolog ical Agents atorvastati n 10 mg tablet 2024-09 00:00: 00 Yes [id number] 1 tablet DAILY 1 tablet DAILY (route: oral) Med Classific ation: Cardiovas cular Therapy Agents carvedilol 3.125 mg tablet 2024-09 00:00: 00 08-04 00:00 :00 No [id number] 1 tablet 2 TIMES DAILY 1 tablet 2 TIMES DAILY (route: oral) Med Classific ation: Cardiovas cular Therapy Agents Eliquis 5 mg tablet 2024-09 00:00: 00 Yes [id number] 1 tablet 2 TIMES DAILY 1 tablet 2 TIMES DAILY (route: oral) Med Classific ation: Hematolog ical Agents Entresto 24 mg-26 mg tablet 2024-09 00:00: 00 Yes [id number] 1 tablet 2 TIMES DAILY 1 tablet 2 TIMES DAILY (route: oral) Med Classific ation: Cardiovas cular Therapy Agents ferrous sulfate 325 mg (65 mg iron) tablet 2024-09 00:00: 00 Yes [id number] 1 tablet DAILY 1 tablet DAILY (route: oral) Med Classific ation: Electroly te Balance-N utritiona l Products furosemide 20 mg tablet 2024-09 00:00: 00 Yes [id number] 1 tablet EVERY OTHER DAY 1 tablet EVERY OTHER DAY (route: oral) Med Classific ation: Cardiovas cular Therapy Agents Jardiance 10 mg tablet 2024-09 00:00: 00 Yes [id number] 1 tablet DAILY 1 tablet DAILY (route: oral) Med Classific ation: Endocrine sertraline 25 mg tablet 2024-09 00:00: 00 Yes [id number] 1 tablet DAILY 1 tablet DAILY (route: oral) Med Classific ation: Central Nervous System Agents spironolact one 25 mg tablet 2024-09 00:00: 00 Yes [id number] 1 tablet DAILY 1 tablet DAILY (route: oral) Med Classific ation: Cardiovas cular Therapy Agents Wound Cleanser irrigation spray 2024-09 00:00: 00 08-04 00:00 :00 No [id number] Per instruc tions DIRECTED Per instructio ns DIRECTED (route: irrigation ) Med Classific ation: Dermatolo gical Pharmacy Compounded Medication 2024-09 00:00: 00 08-04 00:00 :00 No [id number] Per instruc tions DIRECTED Per instructio ns DIRECTED (route: Per Instructio ns) Med Classific ation: Custom acetaminoph en 325 mg capsule 2024-09 00:00: 00 Yes [id number] 2 capsule EVERY 4 HOURS 2 capsule EVERY 4 HOURS (route: oral) Med Classific ation: Analgesic , Anti-infl ammatory or Antipyret ic amiodarone 200 mg tablet 2024-09 00:00: 00 Yes [id number] 1 tablet 2 TIMES DAILY 1 tablet 2 TIMES DAILY (route: oral) Med Classific ation: Cardiovas cular Therapy Agents carvedilol 6.25 mg tablet 2024-09 00:00: 00 Yes [id number] 1 tablet 2 TIMES DAILY 1 tablet [...] MAINTAIN SITUATIONAL AWARENESS AND WILL NOTIFY CLINICAL SECRETARY BOARD OF COMMISSIONERS AND PHYSICIAN/PROVIDER WITH ANY CHANGE IN CONDITION. [code = SKILLED NURSE TO PERFORM ENVIRONMENTAL SAFETY RISK ASSESSMENT AND FALL RISK ASSESSMENT AND PROVIDE INSTRUCTION TO IMPLEMENT ENVIRONMENTAL SAFETY AND FALL PREVENTION STRATEGIES THROUGHOUT THE CERTIFICATION PERIOD. SKILLED NURSE WILL MAINTAIN SITUATIONAL AWARENESS AND WILL NOTIFY CLINICAL SECRETARY BOARD OF COMMISSIONERS AND PHYSICIAN/PROVIDER WITH ANY CHANGE IN CONDITION.] [...] End Date/Time Encounter Type Admission Type Attending [facility] Care Department Encounter ID Discharge Date Discharge Status Discharge Condition Discharge Reason Percent Goals Met 2025-08-04 00:00:00 2025-10-02 00:00:00 Outpatient ASHLEY EVERETT [facility] [id number] 17.1 4
--- OUTSIDE RECORDS SUMMARY | 2025-10-01 18:00 | XMS_ITS | Clinical Summary ---
Author Organization Unknown Care Team Providers Care Clarification Operator Name Role Phone OSMIN BURNETT, RAJENDRA Unavailable Unavailable NAYLA RNASHLEY Unavailable Unavailable Payers Payer Name Policy Type Policy Number Effective Date Expira tion Date MEDICARE - [place] - [facility] [id number] Problems Condition Name Condition Details Condition Category [...] OF DIGESTIVE TRACT Active 09-24 00:00: 00 MEMS ENGINEER (CURRENT) USE OF ORAL HYPOGLYCEMIC DRUGS Active 09-24 00:00: 00 MEMS ENGINEER (CURRENT) USE OF ASPIRIN Active 09-24 00:00: 00 MEMS ENGINEER (CURRENT) USE OF ANTICOAGULAN TS Active 09-24 [...] 81 mg tablet 2024-09 00:00: 00 Yes [id number] 1 tablet DAILY 1 tablet DAILY (route: oral) Med Classific ation: Hematolog ical Agents atorvastati n 10 mg tablet 2024-09 00:00: 00 Yes [id number] 1 tablet DAILY 1 tablet DAILY (route: oral) Med Classific ation: Cardiovas cular Therapy Agents carvedilol 3.125 mg tablet 2024-09 00:00: 00 08-04 00:00 :00 No [id number] 1 tablet 2 TIMES DAILY 1 tablet 2 TIMES DAILY (route: oral) Med Classific ation: Cardiovas cular Therapy Agents Eliquis 5 mg tablet 2024-09 00:00: 00 Yes [id number] 1 tablet 2 TIMES DAILY 1 tablet 2 TIMES DAILY (route: oral) Med Classific ation: Hematolog ical Agents Entresto 24 mg-26 mg tablet 2024-09 00:00: 00 Yes [id number] 1 tablet 2 TIMES DAILY 1 tablet 2 TIMES DAILY (route: oral) Med Classific ation: Cardiovas cular Therapy Agents ferrous sulfate 325 mg (65 mg iron) tablet 2024-09 00:00: 00 Yes [id number] 1 tablet DAILY 1 tablet DAILY (route: oral) Med Classific ation: Electroly te Balance-N utritiona l Products furosemide 20 mg tablet 2024-09 00:00: 00 Yes [id number] 1 tablet EVERY OTHER DAY 1 tablet EVERY OTHER DAY (route: oral) Med Classific ation: Cardiovas cular Therapy Agents Jardiance 10 mg tablet 2024-09 00:00: 00 Yes [id number] 1 tablet DAILY 1 tablet DAILY (route: oral) Med Classific ation: Endocrine sertraline 25 mg tablet 2024-09 00:00: 00 Yes [id number] 1 tablet DAILY 1 tablet DAILY (route: oral) Med Classific ation: Central Nervous System Agents spironolact one 25 mg tablet 2024-09 00:00: 00 Yes [id number] 1 tablet DAILY 1 tablet DAILY (route: oral) Med Classific ation: Cardiovas cular Therapy Agents Wound Cleanser irrigation spray 2024-09 00:00: 00 08-04 00:00 :00 No [id number] Per instruc tions DIRECTED Per instructio ns DIRECTED (route: irrigation ) Med Classific ation: Dermatolo gical Pharmacy Compounded Medication 2024-09 00:00: 00 08-04 00:00 :00 No [id number] Per instruc tions DIRECTED Per instructio ns DIRECTED (route: Per Instructio ns) Med Classific ation: Custom acetaminoph en 325 mg capsule 2024-09 00:00: 00 Yes [id number] 2 capsule EVERY 4 HOURS 2 capsule EVERY 4 HOURS (route: oral) Med Classific ation: Analgesic , Anti-infl ammatory or Antipyret ic amiodarone 200 mg tablet 2024-09 00:00: 00 Yes [id number] 1 tablet 2 TIMES DAILY 1 tablet 2 TIMES DAILY (route: oral) Med Classific ation: Cardiovas cular Therapy Agents carvedilol 6.25 mg tablet 2024-09 00:00: 00 Yes [id number] 1 tablet 2 TIMES DAILY 1 tablet [...] MAINTAIN SITUATIONAL AWARENESS AND WILL NOTIFY CLINICAL MERCHANDISER AND PHYSICIAN/PROVIDER WITH ANY CHANGE IN CONDITION. [code = SKILLED NURSE TO PERFORM ENVIRONMENTAL SAFETY RISK ASSESSMENT AND FALL RISK ASSESSMENT AND PROVIDE INSTRUCTION TO IMPLEMENT ENVIRONMENTAL SAFETY AND FALL PREVENTION STRATEGIES THROUGHOUT THE CERTIFICATION PERIOD. SKILLED NURSE WILL MAINTAIN SITUATIONAL AWARENESS AND WILL NOTIFY CLINICAL MERCHANDISER AND PHYSICIAN/PROVIDER WITH ANY CHANGE IN CONDITION.] [...] CARE WILL BE ESTABLISHED THAT MEETS PATIENT'S HALFWAY NEEDS AND INCLUDES PATIENT GOAL FOR HOME [...] NOTED. PATIENT'S CALENDAR WAS REVIEWED REGARDING NEXT HALFWAY VISIT. PATIENT ADVISED TO CALL [facility] WITH ANY QUESTIONS CONCERNS OR CHANGES IN HEALTH STATUS</paragraph> Encounters Start Date/Time End Date/Time Encounter Type Admission Type Attending [facility] Care Department Encounter ID Discharge Date Discharge Status Discharge Condition Discharge Reason Percent Goals Met 2025-08-04 00:00:00 2025-10-02 00:00:00 Outpatient ASHLEY EVERETT [facility] [id number] 17.1 4
--- OUTSIDE RECORDS SUMMARY | 2025-10-01 18:00 | XMS_ITS | Clinical Summary ---
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 REPAIRER (CURRENT) USE OF ANTICOAGULAN TS Active 09-24 [...] 81 mg tablet 2024-09 00:00: 00 Yes [id number] 1 tablet DAILY 1 tablet DAILY (route: oral) Med Classific ation: Hematolog ical Agents atorvastati n 10 mg tablet 2024-09 00:00: 00 Yes [id number] 1 tablet DAILY 1 tablet DAILY (route: oral) Med Classific ation: Cardiovas cular Therapy Agents carvedilol 3.125 mg tablet 2024-09 00:00: 00 08-04 00:00 :00 No [id number] 1 tablet 2 TIMES DAILY 1 tablet 2 TIMES DAILY (route: oral) Med Classific ation: Cardiovas cular Therapy Agents Eliquis 5 mg tablet 2024-09 00:00: 00 Yes [id number] 1 tablet 2 TIMES DAILY 1 tablet 2 TIMES DAILY (route: oral) Med Classific ation: Hematolog ical Agents Entresto 24 mg-26 mg tablet 2024-09 00:00: 00 Yes [id number] 1 tablet 2 TIMES DAILY 1 tablet 2 TIMES DAILY (route: oral) Med Classific ation: Cardiovas cular Therapy Agents ferrous sulfate 325 mg (65 mg iron) tablet 2024-09 00:00: 00 Yes [id number] 1 tablet DAILY 1 tablet DAILY (route: oral) Med Classific ation: Electroly te Balance-N utritiona l Products furosemide 20 mg tablet 2024-09 00:00: 00 Yes [id number] 1 tablet EVERY OTHER DAY 1 tablet EVERY OTHER DAY (route: oral) Med Classific ation: Cardiovas cular Therapy Agents Jardiance 10 mg tablet 2024-09 00:00: 00 Yes [id number] 1 tablet DAILY 1 tablet DAILY (route: oral) Med Classific ation: Endocrine sertraline 25 mg tablet 2024-09 00:00: 00 Yes [id number] 1 tablet DAILY 1 tablet DAILY (route: oral) Med Classific ation: Central Nervous System Agents spironolact one 25 mg tablet 2024-09 00:00: 00 Yes [id number] 1 tablet DAILY 1 tablet DAILY (route: oral) Med Classific ation: Cardiovas cular Therapy Agents Wound Cleanser irrigation spray 2024-09 00:00: 00 08-04 00:00 :00 No [id number] Per instruc tions DIRECTED Per instructio ns DIRECTED (route: irrigation ) Med Classific ation: Dermatolo gical Pharmacy Compounded Medication 2024-09 00:00: 00 08-04 00:00 :00 No [id number] Per instruc tions DIRECTED Per instructio ns DIRECTED (route: Per Instructio ns) Med Classific ation: Custom acetaminoph en 325 mg capsule 2024-09 00:00: 00 Yes [id number] 2 capsule EVERY 4 HOURS 2 capsule EVERY 4 HOURS (route: oral) Med Classific ation: Analgesic , Anti-infl ammatory or Antipyret ic amiodarone 200 mg tablet 2024-09 00:00: 00 Yes [id number] 1 tablet 2 TIMES DAILY 1 tablet 2 TIMES DAILY (route: oral) Med Classific ation: Cardiovas cular Therapy Agents carvedilol 6.25 mg tablet 2024-09 00:00: 00 Yes [id number] 1 tablet 2 TIMES DAILY 1 tablet [...] MAINTAIN SITUATIONAL AWARENESS AND WILL NOTIFY CLINICAL GAS PUMPING STATION SUPERVISOR AND PHYSICIAN/PROVIDER WITH ANY CHANGE IN CONDITION. [code = SKILLED NURSE TO PERFORM ENVIRONMENTAL SAFETY RISK ASSESSMENT AND FALL RISK ASSESSMENT AND PROVIDE INSTRUCTION TO IMPLEMENT ENVIRONMENTAL SAFETY AND FALL PREVENTION STRATEGIES THROUGHOUT THE CERTIFICATION PERIOD. SKILLED NURSE WILL MAINTAIN SITUATIONAL AWARENESS AND WILL NOTIFY CLINICAL GAS PUMPING STATION SUPERVISOR AND PHYSICIAN/PROVIDER WITH ANY CHANGE IN CONDITION.] [...] 00:00:00 2025-10-02 00:00:00 Outpatient ASHLEY EVERETT [facility] [id number] 17.1 4
--- OUTSIDE RECORDS SUMMARY | 2025-10-01 18:00 | XMS_ITS | Clinical Summary ---
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 (CURRENT) USE OF ASPIRIN Active 09-24 00:00: 00 OCCUPATIONAL HEALTH AND SAFETY MANAGER (CURRENT) USE OF ANTICOAGULAN TS Active [...] 81 mg tablet 2024-09 00:00: 00 Yes [id number] 1 tablet DAILY 1 tablet DAILY (route: oral) Med Classific ation: Hematolog ical Agents atorvastati n 10 mg tablet 2024-09 00:00: 00 Yes [id number] 1 tablet DAILY 1 tablet DAILY (route: oral) Med Classific ation: Cardiovas cular Therapy Agents carvedilol 3.125 mg tablet 2024-09 00:00: 00 08-04 00:00 :00 No [id number] 1 tablet 2 TIMES DAILY 1 tablet 2 TIMES DAILY (route: oral) Med Classific ation: Cardiovas cular Therapy Agents Eliquis 5 mg tablet 2024-09 00:00: 00 Yes [id number] 1 tablet 2 TIMES DAILY 1 tablet 2 TIMES DAILY (route: oral) Med Classific ation: Hematolog ical Agents Entresto 24 mg-26 mg tablet 2024-09 00:00: 00 Yes [id number] 1 tablet 2 TIMES DAILY 1 tablet 2 TIMES DAILY (route: oral) Med Classific ation: Cardiovas cular Therapy Agents ferrous sulfate 325 mg (65 mg iron) tablet 2024-09 00:00: 00 Yes [id number] 1 tablet DAILY 1 tablet DAILY (route: oral) Med Classific ation: Electroly te Balance-N utritiona l Products furosemide 20 mg tablet 2024-09 00:00: 00 Yes [id number] 1 tablet EVERY OTHER DAY 1 tablet EVERY OTHER DAY (route: oral) Med Classific ation: Cardiovas cular Therapy Agents Jardiance 10 mg tablet 2024-09 00:00: 00 Yes [id number] 1 tablet DAILY 1 tablet DAILY (route: oral) Med Classific ation: Endocrine sertraline 25 mg tablet 2024-09 00:00: 00 Yes [id number] 1 tablet DAILY 1 tablet DAILY (route: oral) Med Classific ation: Central Nervous System Agents spironolact one 25 mg tablet 2024-09 00:00: 00 Yes [id number] 1 tablet DAILY 1 tablet DAILY (route: oral) Med Classific ation: Cardiovas cular Therapy Agents Wound Cleanser irrigation spray 2024-09 00:00: 00 08-04 00:00 :00 No [id number] Per instruc tions DIRECTED Per instructio ns DIRECTED (route: irrigation ) Med Classific ation: Dermatolo gical Pharmacy Compounded Medication 2024-09 00:00: 00 08-04 00:00 :00 No [id number] Per instruc tions DIRECTED Per instructio ns DIRECTED (route: Per Instructio ns) Med Classific ation: Custom acetaminoph en 325 mg capsule 2024-09 00:00: 00 Yes [id number] 2 capsule EVERY 4 HOURS 2 capsule EVERY 4 HOURS (route: oral) Med Classific ation: Analgesic , Anti-infl ammatory or Antipyret ic amiodarone 200 mg tablet 2024-09 00:00: 00 Yes [id number] 1 tablet 2 TIMES DAILY 1 tablet 2 TIMES DAILY (route: oral) Med Classific ation: Cardiovas cular Therapy Agents carvedilol 6.25 mg tablet 2024-09 00:00: 00 Yes [id number] 1 tablet 2 TIMES DAILY 1 tablet [...] MAINTAIN SITUATIONAL AWARENESS AND WILL NOTIFY CLINICAL SEARCH ENGINEER AND PHYSICIAN/PROVIDER WITH ANY CHANGE IN CONDITION. [code = SKILLED NURSE TO PERFORM ENVIRONMENTAL SAFETY RISK ASSESSMENT AND FALL RISK ASSESSMENT AND PROVIDE INSTRUCTION TO IMPLEMENT ENVIRONMENTAL SAFETY AND FALL PREVENTION STRATEGIES THROUGHOUT THE CERTIFICATION PERIOD. SKILLED NURSE WILL MAINTAIN SITUATIONAL AWARENESS AND WILL NOTIFY CLINICAL SEARCH ENGINEER AND PHYSICIAN/PROVIDER WITH ANY CHANGE IN [...] CARE WILL BE ESTABLISHED THAT MEETS PATIENT'S CARE HOME NEEDS AND INCLUDES PATIENT GOAL FOR HOME [...] NOTED. PATIENT'S CALENDAR WAS REVIEWED REGARDING NEXT CARE HOME VISIT. PATIENT ADVISED TO CALL [facility] WITH ANY QUESTIONS CONCERNS OR CHANGES IN HEALTH STATUS</paragraph> Encounters Start Date/Time End Date/Time Encounter Type Admission Type Attending [facility] Care Department Encounter ID Discharge Date Discharge Status Discharge Condition Discharge Reason Percent Goals Met 2025-08-04 00:00:00 2025-10-02 00:00:00 Outpatient ASHLEY EVERETT [facility] [id number] 17.1 4
--- OUTSIDE RECORDS SUMMARY | 2025-10-01 18:00 | XMS_ITS | Clinical Summary ---
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 Active 09-24 00:00: 00 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 (CURRENT) USE OF ANTICOAGULAN TS Active 09-24 [...] 81 mg tablet 2024-09 00:00: 00 Yes [id number] 1 tablet DAILY 1 tablet DAILY (route: oral) Med Classific ation: Hematolog ical Agents atorvastati n 10 mg tablet 2024-09 00:00: 00 Yes [id number] 1 tablet DAILY 1 tablet DAILY (route: oral) Med Classific ation: Cardiovas cular Therapy Agents carvedilol 3.125 mg tablet 2024-09 00:00: 00 08-04 00:00 :00 No [id number] 1 tablet 2 TIMES DAILY 1 tablet 2 TIMES DAILY (route: oral) Med Classific ation: Cardiovas cular Therapy Agents Eliquis 5 mg tablet 2024-09 00:00: 00 Yes [id number] 1 tablet 2 TIMES DAILY 1 tablet 2 TIMES DAILY (route: oral) Med Classific ation: Hematolog ical Agents Entresto 24 mg-26 mg tablet 2024-09 00:00: 00 Yes [id number] 1 tablet 2 TIMES DAILY 1 tablet 2 TIMES DAILY (route: oral) Med Classific ation: Cardiovas cular Therapy Agents ferrous sulfate 325 mg (65 mg iron) tablet 2024-09 00:00: 00 Yes [id number] 1 tablet DAILY 1 tablet DAILY (route: oral) Med Classific ation: Electroly te Balance-N utritiona l Products furosemide 20 mg tablet 2024-09 00:00: 00 Yes [id number] 1 tablet EVERY OTHER DAY 1 tablet EVERY OTHER DAY (route: oral) Med Classific ation: Cardiovas cular Therapy Agents Jardiance 10 mg tablet 2024-09 00:00: 00 Yes [id number] 1 tablet DAILY 1 tablet DAILY (route: oral) Med Classific ation: Endocrine sertraline 25 mg tablet 2024-09 00:00: 00 Yes [id number] 1 tablet DAILY 1 tablet DAILY (route: oral) Med Classific ation: Central Nervous System Agents spironolact one 25 mg tablet 2024-09 00:00: 00 Yes [id number] 1 tablet DAILY 1 tablet DAILY (route: oral) Med Classific ation: Cardiovas cular Therapy Agents Wound Cleanser irrigation spray 2024-09 00:00: 00 08-04 00:00 :00 No [id number] Per instruc tions DIRECTED Per instructio ns DIRECTED (route: irrigation ) Med Classific ation: Dermatolo gical Pharmacy Compounded Medication 2024-09 00:00: 00 08-04 00:00 :00 No [id number] Per instruc tions DIRECTED Per instructio ns DIRECTED (route: Per Instructio ns) Med Classific ation: Custom acetaminoph en 325 mg capsule 2024-09 00:00: 00 Yes [id number] 2 capsule EVERY 4 HOURS 2 capsule EVERY 4 HOURS (route: oral) Med Classific ation: Analgesic , Anti-infl ammatory or Antipyret ic amiodarone 200 mg tablet 2024-09 00:00: 00 Yes [id number] 1 tablet 2 TIMES DAILY 1 tablet 2 TIMES DAILY (route: oral) Med Classific ation: Cardiovas cular Therapy Agents carvedilol 6.25 mg tablet 2024-09 00:00: 00 Yes [id number] 1 tablet 2 TIMES DAILY 1 tablet [...] MAINTAIN SITUATIONAL AWARENESS AND WILL NOTIFY CLINICAL INSTRUCTOR TAP DANCING AND PHYSICIAN/PROVIDER WITH ANY CHANGE IN CONDITION. [code = SKILLED NURSE TO PERFORM ENVIRONMENTAL SAFETY RISK ASSESSMENT AND FALL RISK ASSESSMENT AND PROVIDE INSTRUCTION TO IMPLEMENT ENVIRONMENTAL SAFETY AND FALL PREVENTION STRATEGIES THROUGHOUT THE CERTIFICATION PERIOD. SKILLED NURSE WILL MAINTAIN SITUATIONAL AWARENESS AND WILL NOTIFY CLINICAL INSTRUCTOR TAP DANCING AND PHYSICIAN/PROVIDER WITH ANY CHANGE IN CONDITION.] [...] CARE WILL BE ESTABLISHED THAT MEETS PATIENT'S DETENTION NEEDS AND INCLUDES PATIENT GOAL FOR HOME [...] NOTED. PATIENT'S CALENDAR WAS REVIEWED REGARDING NEXT DETENTION VISIT. PATIENT ADVISED TO CALL [facility] WITH ANY QUESTIONS CONCERNS OR CHANGES IN HEALTH STATUS</paragraph> Encounters Start Date/Time End Date/Time Encounter Type Admission Type Attending [facility] Care Department Encounter ID Discharge Date Discharge Status Discharge Condition Discharge Reason Percent Goals Met 2025-08-04 00:00:00 2025-10-02 00:00:00 Outpatient ASHLEY EVERETT [facility] [id number] 17.1 4
--- OUTSIDE RECORDS SUMMARY | 2025-10-01 18:00 | XMS_ITS | Clinical Summary ---
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 CAKE TRIMMER (CURRENT) USE OF ANTICOAGULAN TS Active 09-24 [...] 81 mg tablet 2024-09 00:00: 00 Yes [id number] 1 tablet DAILY 1 tablet DAILY (route: oral) Med Classific ation: Hematolog ical Agents atorvastati n 10 mg tablet 2024-09 00:00: 00 Yes [id number] 1 tablet DAILY 1 tablet DAILY (route: oral) Med Classific ation: Cardiovas cular Therapy Agents carvedilol 3.125 mg tablet 2024-09 00:00: 00 08-04 00:00 :00 No [id number] 1 tablet 2 TIMES DAILY 1 tablet 2 TIMES DAILY (route: oral) Med Classific ation: Cardiovas cular Therapy Agents Eliquis 5 mg tablet 2024-09 00:00: 00 Yes [id number] 1 tablet 2 TIMES DAILY 1 tablet 2 TIMES DAILY (route: oral) Med Classific ation: Hematolog ical Agents Entresto 24 mg-26 mg tablet 2024-09 00:00: 00 Yes [id number] 1 tablet 2 TIMES DAILY 1 tablet 2 TIMES DAILY (route: oral) Med Classific ation: Cardiovas cular Therapy Agents ferrous sulfate 325 mg (65 mg iron) tablet 2024-09 00:00: 00 Yes [id number] 1 tablet DAILY 1 tablet DAILY (route: oral) Med Classific ation: Electroly te Balance-N utritiona l Products furosemide 20 mg tablet 2024-09 00:00: 00 Yes [id number] 1 tablet EVERY OTHER DAY 1 tablet EVERY OTHER DAY (route: oral) Med Classific ation: Cardiovas cular Therapy Agents Jardiance 10 mg tablet 2024-09 00:00: 00 Yes [id number] 1 tablet DAILY 1 tablet DAILY (route: oral) Med Classific ation: Endocrine sertraline 25 mg tablet 2024-09 00:00: 00 Yes [id number] 1 tablet DAILY 1 tablet DAILY (route: oral) Med Classific ation: Central Nervous System Agents spironolact one 25 mg tablet 2024-09 00:00: 00 Yes [id number] 1 tablet DAILY 1 tablet DAILY (route: oral) Med Classific ation: Cardiovas cular Therapy Agents Wound Cleanser irrigation spray 2024-09 00:00: 00 08-04 00:00 :00 No [id number] Per instruc tions DIRECTED Per instructio ns DIRECTED (route: irrigation ) Med Classific ation: Dermatolo gical Pharmacy Compounded Medication 2024-09 00:00: 00 08-04 00:00 :00 No [id number] Per instruc tions DIRECTED Per instructio ns DIRECTED (route: Per Instructio ns) Med Classific ation: Custom acetaminoph en 325 mg capsule 2024-09 00:00: 00 Yes [id number] 2 capsule EVERY 4 HOURS 2 capsule EVERY 4 HOURS (route: oral) Med Classific ation: Analgesic , Anti-infl ammatory or Antipyret ic amiodarone 200 mg tablet 2024-09 00:00: 00 Yes [id number] 1 tablet 2 TIMES DAILY 1 tablet 2 TIMES DAILY (route: oral) Med Classific ation: Cardiovas cular Therapy Agents carvedilol 6.25 mg tablet 2024-09 00:00: 00 Yes [id number] 1 tablet 2 TIMES DAILY 1 tablet [...] MAINTAIN SITUATIONAL AWARENESS AND WILL NOTIFY CLINICAL RATE MARKER AND PHYSICIAN/PROVIDER WITH ANY CHANGE IN CONDITION. [code = SKILLED NURSE TO PERFORM ENVIRONMENTAL SAFETY RISK ASSESSMENT AND FALL RISK ASSESSMENT AND PROVIDE INSTRUCTION TO IMPLEMENT ENVIRONMENTAL SAFETY AND FALL PREVENTION STRATEGIES THROUGHOUT THE CERTIFICATION PERIOD. SKILLED NURSE WILL MAINTAIN SITUATIONAL AWARENESS AND WILL NOTIFY CLINICAL RATE MARKER AND PHYSICIAN/PROVIDER WITH ANY CHANGE IN CONDITION.] [...] CARE WILL BE ESTABLISHED THAT MEETS PATIENT'S FPC NEEDS AND INCLUDES PATIENT GOAL FOR HOME [...] NOTED. PATIENT'S CALENDAR WAS REVIEWED REGARDING NEXT [facility]PC VISIT. PATIENT ADVISED TO CALL [facility] WITH ANY QUESTIONS CONCERNS OR CHANGES IN HEALTH STATUS</paragraph> Encounters Start Date/Time End Date/Time Encounter Type Admission Type Attending [facility] Care Department Encounter ID Discharge Date Discharge Status Discharge Condition Discharge Reason Percent Goals Met 2025-08-04 00:00:00 2025-10-02 00:00:00 Outpatient ASHLEY EVERETT [facility] [id number] 17.1 4
--- OUTSIDE RECORDS SUMMARY | 2025-10-01 18:00 | XMS_ITS | Clinical Summary ---
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 OF ORAL HYPOGLYCEMIC DRUGS Active 09-24 00:00: 00 EMERGENCY MEDCL EMT (CURRENT) USE OF ASPIRIN Active 09-24 00:00: 00 EMERGENCY MEDCL EMT (CURRENT) USE OF ANTICOAGULAN TS Active 09-24 [...] 81 mg tablet 2024-09 00:00: 00 Yes [id number] 1 tablet DAILY 1 tablet DAILY (route: oral) Med Classific ation: Hematolog ical Agents atorvastati n 10 mg tablet 2024-09 00:00: 00 Yes [id number] 1 tablet DAILY 1 tablet DAILY (route: oral) Med Classific ation: Cardiovas cular Therapy Agents carvedilol 3.125 mg tablet 2024-09 00:00: 00 08-04 00:00 :00 No [id number] 1 tablet 2 TIMES DAILY 1 tablet 2 TIMES DAILY (route: oral) Med Classific ation: Cardiovas cular Therapy Agents Eliquis 5 mg tablet 2024-09 00:00: 00 Yes [id number] 1 tablet 2 TIMES DAILY 1 tablet 2 TIMES DAILY (route: oral) Med Classific ation: Hematolog ical Agents Entresto 24 mg-26 mg tablet 2024-09 00:00: 00 Yes [id number] 1 tablet 2 TIMES DAILY 1 tablet 2 TIMES DAILY (route: oral) Med Classific ation: Cardiovas cular Therapy Agents ferrous sulfate 325 mg (65 mg iron) tablet 2024-09 00:00: 00 Yes [id number] 1 tablet DAILY 1 tablet DAILY (route: oral) Med Classific ation: Electroly te Balance-N utritiona l Products furosemide 20 mg tablet 2024-09 00:00: 00 Yes [id number] 1 tablet EVERY OTHER DAY 1 tablet EVERY OTHER DAY (route: oral) Med Classific ation: Cardiovas cular Therapy Agents Jardiance 10 mg tablet 2024-09 00:00: 00 Yes [id number] 1 tablet DAILY 1 tablet DAILY (route: oral) Med Classific ation: Endocrine sertraline 25 mg tablet 2024-09 00:00: 00 Yes [id number] 1 tablet DAILY 1 tablet DAILY (route: oral) Med Classific ation: Central Nervous System Agents spironolact one 25 mg tablet 2024-09 00:00: 00 Yes [id number] 1 tablet DAILY 1 tablet DAILY (route: oral) Med Classific ation: Cardiovas cular Therapy Agents Wound Cleanser irrigation spray 2024-09 00:00: 00 08-04 00:00 :00 No [id number] Per instruc tions DIRECTED Per instructio ns DIRECTED (route: irrigation ) Med Classific ation: Dermatolo gical Pharmacy Compounded Medication 2024-09 00:00: 00 08-04 00:00 :00 No [id number] Per instruc tions DIRECTED Per instructio ns DIRECTED (route: Per Instructio ns) Med Classific ation: Custom acetaminoph en 325 mg capsule 2024-09 00:00: 00 Yes [id number] 2 capsule EVERY 4 HOURS 2 capsule EVERY 4 HOURS (route: oral) Med Classific ation: Analgesic , Anti-infl ammatory or Antipyret ic amiodarone 200 mg tablet 2024-09 00:00: 00 Yes [id number] 1 tablet 2 TIMES DAILY 1 tablet 2 TIMES DAILY (route: oral) Med Classific ation: Cardiovas cular Therapy Agents carvedilol 6.25 mg tablet 2024-09 00:00: 00 Yes [id number] 1 tablet 2 TIMES DAILY 1 tablet [...] MAINTAIN SITUATIONAL AWARENESS AND WILL NOTIFY CLINICAL ANNUAL GREENHOUSE MANAGER AND PHYSICIAN/PROVIDER WITH ANY CHANGE IN CONDITION. [code = SKILLED NURSE TO PERFORM ENVIRONMENTAL SAFETY RISK ASSESSMENT AND FALL RISK ASSESSMENT AND PROVIDE INSTRUCTION TO IMPLEMENT ENVIRONMENTAL SAFETY AND FALL PREVENTION STRATEGIES THROUGHOUT THE CERTIFICATION PERIOD. SKILLED NURSE WILL MAINTAIN SITUATIONAL AWARENESS AND WILL NOTIFY CLINICAL ANNUAL GREENHOUSE MANAGER AND PHYSICIAN/PROVIDER WITH ANY CHANGE IN CONDITION.] [...] End Date/Time Encounter Type Admission Type Attending [facility] Care Department Encounter ID Discharge Date Discharge Status Discharge Condition Discharge Reason Percent Goals Met 2025-08-04 00:00:00 2025-10-02 00:00:00 Outpatient ASHLEY EVERETT [facility] [id number] 17.1 4
--- OUTSIDE RECORDS SUMMARY | 2025-10-01 18:00 | XMS_ITS | Clinical Summary ---
Author Organization Unknown Care Team Providers Care Student Teaching Coordinator Name Role Phone OSMIN BURNETT, RAJENDRA Unavailable Unavailable NAYLA RNASHLEY Unavailable Unavailable Payers Payer Name Policy Type Policy Number Effective Date Expira tion Date MEDICARE - [place] - 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 (CURRENT) USE OF ASPIRIN Active 09-24 00:00: 00 AIRLINE MANAGERIAL SUPERVISOR (CURRENT) USE OF ANTICOAGULAN TS Active [...] 81 mg tablet 2024-09 00:00: 00 Yes [id number] 1 tablet DAILY 1 tablet DAILY (route: oral) Med Classific ation: Hematolog ical Agents atorvastati n 10 mg tablet 2024-09 00:00: 00 Yes [id number] 1 tablet DAILY 1 tablet DAILY (route: oral) Med Classific ation: Cardiovas cular Therapy Agents carvedilol 3.125 mg tablet 2024-09 00:00: 00 08-04 00:00 :00 No [id number] 1 tablet 2 TIMES DAILY 1 tablet 2 TIMES DAILY (route: oral) Med Classific ation: Cardiovas cular Therapy Agents Eliquis 5 mg tablet 2024-09 00:00: 00 Yes [id number] 1 tablet 2 TIMES DAILY 1 tablet 2 TIMES DAILY (route: oral) Med Classific ation: Hematolog ical Agents Entresto 24 mg-26 mg tablet 2024-09 00:00: 00 Yes [id number] 1 tablet 2 TIMES DAILY 1 tablet 2 TIMES DAILY (route: oral) Med Classific ation: Cardiovas cular Therapy Agents ferrous sulfate 325 mg (65 mg iron) tablet 2024-09 00:00: 00 Yes [id number] 1 tablet DAILY 1 tablet DAILY (route: oral) Med Classific ation: Electroly te Balance-N utritiona l Products furosemide 20 mg tablet 2024-09 00:00: 00 Yes [id number] 1 tablet EVERY OTHER DAY 1 tablet EVERY OTHER DAY (route: oral) Med Classific ation: Cardiovas cular Therapy Agents Jardiance 10 mg tablet 2024-09 00:00: 00 Yes [id number] 1 tablet DAILY 1 tablet DAILY (route: oral) Med Classific ation: Endocrine sertraline 25 mg tablet 2024-09 00:00: 00 Yes [id number] 1 tablet DAILY 1 tablet DAILY (route: oral) Med Classific ation: Central Nervous System Agents spironolact one 25 mg tablet 2024-09 00:00: 00 Yes [id number] 1 tablet DAILY 1 tablet DAILY (route: oral) Med Classific ation: Cardiovas cular Therapy Agents Wound Cleanser irrigation spray 2024-09 00:00: 00 08-04 00:00 :00 No [id number] Per instruc tions DIRECTED Per instructio ns DIRECTED (route: irrigation ) Med Classific ation: Dermatolo gical Pharmacy Compounded Medication 2024-09 00:00: 00 08-04 00:00 :00 No [id number] Per instruc tions DIRECTED Per instructio ns DIRECTED (route: Per Instructio ns) Med Classific ation: Custom acetaminoph en 325 mg capsule 2024-09 00:00: 00 Yes [id number] 2 capsule EVERY 4 HOURS 2 capsule EVERY 4 HOURS (route: oral) Med Classific ation: Analgesic , Anti-infl ammatory or Antipyret ic amiodarone 200 mg tablet 2024-09 00:00: 00 Yes [id number] 1 tablet 2 TIMES DAILY 1 tablet 2 TIMES DAILY (route: oral) Med Classific ation: Cardiovas cular Therapy Agents carvedilol 6.25 mg tablet 2024-09 00:00: 00 Yes [id number] 1 tablet 2 TIMES DAILY 1 tablet [...] MAINTAIN SITUATIONAL AWARENESS AND WILL NOTIFY CLINICAL PAID SEARCH MANAGER AND PHYSICIAN/PROVIDER WITH ANY CHANGE IN CONDITION. [code = SKILLED NURSE TO PERFORM ENVIRONMENTAL SAFETY RISK ASSESSMENT AND FALL RISK ASSESSMENT AND PROVIDE INSTRUCTION TO IMPLEMENT ENVIRONMENTAL SAFETY AND FALL PREVENTION STRATEGIES THROUGHOUT THE CERTIFICATION PERIOD. SKILLED NURSE WILL MAINTAIN SITUATIONAL AWARENESS AND WILL NOTIFY CLINICAL PAID SEARCH MANAGER AND PHYSICIAN/PROVIDER WITH ANY CHANGE IN [...] Notes Progress Notes <paragraph>[Visit Date: 2024 by ADVID BENAVIDES LPN]:</paragraph><paragraph>NURSE HERE TODAY FOR ROUTINE VISIT [...] End Date/Time Encounter Type Admission Type Attending [facility] Care Department Encounter ID Discharge Date Discharge Status Discharge Condition Discharge Reason Percent Goals Met 2025-08-04 00:00:00 2025-10-02 00:00:00 Outpatient ASHLEY EVERETT [facility] [id number] 17.1 4
--- OUTSIDE RECORDS SUMMARY | 2025-10-01 18:00 | XMS_ITS | Clinical Summary ---
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) USE OF ORAL HYPOGLYCEMIC DRUGS Active 09-24 00:00: 00 PROFESSOR OF ART HISTORY (CURRENT) USE OF ASPIRIN Active 09-24 00:00: 00 PROFESSOR OF ART HISTORY (CURRENT) USE OF ANTICOAGULAN TS Active 09-24 [...] 81 mg tablet 2024-09 00:00: 00 Yes [id number] 1 tablet DAILY 1 tablet DAILY (route: oral) Med Classific ation: Hematolog ical Agents atorvastati n 10 mg tablet 2024-09 00:00: 00 Yes [id number] 1 tablet DAILY 1 tablet DAILY (route: oral) Med Classific ation: Cardiovas cular Therapy Agents carvedilol 3.125 mg tablet 2024-09 00:00: 00 08-04 00:00 :00 No [id number] 1 tablet 2 TIMES DAILY 1 tablet 2 TIMES DAILY (route: oral) Med Classific ation: Cardiovas cular Therapy Agents Eliquis 5 mg tablet 2024-09 00:00: 00 Yes [id number] 1 tablet 2 TIMES DAILY 1 tablet 2 TIMES DAILY (route: oral) Med Classific ation: Hematolog ical Agents Entresto 24 mg-26 mg tablet 2024-09 00:00: 00 Yes [id number] 1 tablet 2 TIMES DAILY 1 tablet 2 TIMES DAILY (route: oral) Med Classific ation: Cardiovas cular Therapy Agents ferrous sulfate 325 mg (65 mg iron) tablet 2024-09 00:00: 00 Yes [id number] 1 tablet DAILY 1 tablet DAILY (route: oral) Med Classific ation: Electroly te Balance-N utritiona l Products furosemide 20 mg tablet 2024-09 00:00: 00 Yes [id number] 1 tablet EVERY OTHER DAY 1 tablet EVERY OTHER DAY (route: oral) Med Classific ation: Cardiovas cular Therapy Agents Jardiance 10 mg tablet 2024-09 00:00: 00 Yes [id number] 1 tablet DAILY 1 tablet DAILY (route: oral) Med Classific ation: Endocrine sertraline 25 mg tablet 2024-09 00:00: 00 Yes [id number] 1 tablet DAILY 1 tablet DAILY (route: oral) Med Classific ation: Central Nervous System Agents spironolact one 25 mg tablet 2024-09 00:00: 00 Yes [id number] 1 tablet DAILY 1 tablet DAILY (route: oral) Med Classific ation: Cardiovas cular Therapy Agents Wound Cleanser irrigation spray 2024-09 00:00: 00 08-04 00:00 :00 No [id number] Per instruc tions DIRECTED Per instructio ns DIRECTED (route: irrigation ) Med Classific ation: Dermatolo gical Pharmacy Compounded Medication 2024-09 00:00: 00 08-04 00:00 :00 No [id number] Per instruc tions DIRECTED Per instructio ns DIRECTED (route: Per Instructio ns) Med Classific ation: Custom acetaminoph en 325 mg capsule 2024-09 00:00: 00 Yes [id number] 2 capsule EVERY 4 HOURS 2 capsule EVERY 4 HOURS (route: oral) Med Classific ation: Analgesic , Anti-infl ammatory or Antipyret ic amiodarone 200 mg tablet 2024-09 00:00: 00 Yes [id number] 1 tablet 2 TIMES DAILY 1 tablet 2 TIMES DAILY (route: oral) Med Classific ation: Cardiovas cular Therapy Agents carvedilol 6.25 mg tablet 2024-09 00:00: 00 Yes [id number] 1 tablet 2 TIMES DAILY 1 tablet [...] THE FOLLOWING PHYSICIANS: DR LAWRENCE WAITE, DR JESSIAK VINES, ON-CALL/ TREATING PROVIDERS.] Future Scheduled Test [...] MAINTAIN SITUATIONAL AWARENESS AND WILL NOTIFY CLINICAL GIS PHYSICAL SCIENTIST AND PHYSICIAN/PROVIDER WITH ANY CHANGE IN CONDITION. [code = SKILLED NURSE TO PERFORM ENVIRONMENTAL SAFETY RISK ASSESSMENT AND FALL RISK ASSESSMENT AND PROVIDE INSTRUCTION TO IMPLEMENT ENVIRONMENTAL SAFETY AND FALL PREVENTION STRATEGIES THROUGHOUT THE CERTIFICATION PERIOD. SKILLED NURSE WILL MAINTAIN SITUATIONAL AWARENESS AND WILL NOTIFY CLINICAL GIS PHYSICAL SCIENTIST AND PHYSICIAN/PROVIDER WITH ANY CHANGE IN CONDITION.] [...] CARE WILL BE ESTABLISHED THAT MEETS PATIENT'S PRISON NEEDS AND INCLUDES PATIENT GOAL FOR HOME [...] NOTED. PATIENT'S CALENDAR WAS REVIEWED REGARDING NEXT PRISON VISIT. PATIENT ADVISED TO CALL [facility] WITH ANY QUESTIONS CONCERNS OR CHANGES IN HEALTH STATUS</paragraph> Encounters Start Date/Time End Date/Time Encounter Type Admission Type Attending [facility] Care Department Encounter ID Discharge Date Discharge Status Discharge Condition Discharge Reason Percent Goals Met 2025-08-04 00:00:00 2025-10-02 00:00:00 Outpatient ASHLEY EVERETT [facility] [id number] 17.1 4
--- OUTSIDE RECORDS SUMMARY | 2025-10-01 18:00 | XMS_ITS | Clinical Summary ---
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) USE OF ASPIRIN Active 09-24 00:00: 00 WET WHEELER (CURRENT) USE OF ANTICOAGULAN TS Active 09-24 [...] 81 mg tablet 2024-09 00:00: 00 Yes [id number] 1 tablet DAILY 1 tablet DAILY (route: oral) Med Classific ation: Hematolog ical Agents atorvastati n 10 mg tablet 2024-09 00:00: 00 Yes [id number] 1 tablet DAILY 1 tablet DAILY (route: oral) Med Classific ation: Cardiovas cular Therapy Agents carvedilol 3.125 mg tablet 2024-09 00:00: 00 08-04 00:00 :00 No [id number] 1 tablet 2 TIMES DAILY 1 tablet 2 TIMES DAILY (route: oral) Med Classific ation: Cardiovas cular Therapy Agents Eliquis 5 mg tablet 2024-09 00:00: 00 Yes [id number] 1 tablet 2 TIMES DAILY 1 tablet 2 TIMES DAILY (route: oral) Med Classific ation: Hematolog ical Agents Entresto 24 mg-26 mg tablet 2024-09 00:00: 00 Yes [id number] 1 tablet 2 TIMES DAILY 1 tablet 2 TIMES DAILY (route: oral) Med Classific ation: Cardiovas cular Therapy Agents ferrous sulfate 325 mg (65 mg iron) tablet 2024-09 00:00: 00 Yes [id number] 1 tablet DAILY 1 tablet DAILY (route: oral) Med Classific ation: Electroly te Balance-N utritiona l Products furosemide 20 mg tablet 2024-09 00:00: 00 Yes [id number] 1 tablet EVERY OTHER DAY 1 tablet EVERY OTHER DAY (route: oral) Med Classific ation: Cardiovas cular Therapy Agents Jardiance 10 mg tablet 2024-09 00:00: 00 Yes [id number] 1 tablet DAILY 1 tablet DAILY (route: oral) Med Classific ation: Endocrine sertraline 25 mg tablet 2024-09 00:00: 00 Yes [id number] 1 tablet DAILY 1 tablet DAILY (route: oral) Med Classific ation: Central Nervous System Agents spironolact one 25 mg tablet 2024-09 00:00: 00 Yes [id number] 1 tablet DAILY 1 tablet DAILY (route: oral) Med Classific ation: Cardiovas cular Therapy Agents Wound Cleanser irrigation spray 2024-09 00:00: 00 08-04 00:00 :00 No [id number] Per instruc tions DIRECTED Per instructio ns DIRECTED (route: irrigation ) Med Classific ation: Dermatolo gical Pharmacy Compounded Medication 2024-09 00:00: 00 08-04 00:00 :00 No [id number] Per instruc tions DIRECTED Per instructio ns DIRECTED (route: Per Instructio ns) Med Classific ation: Custom acetaminoph en 325 mg capsule 2024-09 00:00: 00 Yes [id number] 2 capsule EVERY 4 HOURS 2 capsule EVERY 4 HOURS (route: oral) Med Classific ation: Analgesic , Anti-infl ammatory or Antipyret ic amiodarone 200 mg tablet 2024-09 00:00: 00 Yes [id number] 1 tablet 2 TIMES DAILY 1 tablet 2 TIMES DAILY (route: oral) Med Classific ation: Cardiovas cular Therapy Agents carvedilol 6.25 mg tablet 2024-09 00:00: 00 Yes [id number] 1 tablet 2 TIMES DAILY 1 tablet [...] SEPSIS TO REPORT.] Future Scheduled Test PATIENT LAONSO S A RISK OF HOSPITALIZATION AND ED [...] MAINTAIN SITUATIONAL AWARENESS AND WILL NOTIFY CLINICAL LIVESTOCK COMMISSION AGENT AND PHYSICIAN/PROVIDER WITH ANY CHANGE IN CONDITION. [code = SKILLED NURSE TO PERFORM ENVIRONMENTAL SAFETY RISK ASSESSMENT AND FALL RISK ASSESSMENT AND PROVIDE INSTRUCTION TO IMPLEMENT ENVIRONMENTAL SAFETY AND FALL PREVENTION STRATEGIES THROUGHOUT THE CERTIFICATION PERIOD. SKILLED NURSE WILL MAINTAIN SITUATIONAL AWARENESS AND WILL NOTIFY CLINICAL LIVESTOCK COMMISSION AGENT AND PHYSICIAN/PROVIDER WITH ANY CHANGE IN CONDITION.] [...] End Date/Time Encounter Type Admission Type Attending [facility] Care Department Encounter ID Discharge Date Discharge Status Discharge Condition Discharge Reason Percent Goals Met 2025-08-04 00:00:00 2025-10-02 00:00:00 Outpatient ASHLEY EVERETT [facility] [id number] 17.1 4
--- OUTSIDE RECORDS SUMMARY | 2025-10-01 18:00 | XMS_ITS | Clinical Summary ---
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) USE OF ORAL HYPOGLYCEMIC DRUGS Active 09-24 00:00: 00 MULTIMEDIA EDUCATIONAL SPECIALIST (CURRENT) USE OF ASPIRIN Active 09-24 00:00: 00 MULTIMEDIA EDUCATIONAL SPECIALIST (CURRENT) USE OF ANTICOAGULAN TS Active [...] 81 mg tablet 2024-09 00:00: 00 Yes [id number] 1 tablet DAILY 1 tablet DAILY (route: oral) Med Classific ation: Hematolog ical Agents atorvastati n 10 mg tablet 2024-09 00:00: 00 Yes [id number] 1 tablet DAILY 1 tablet DAILY (route: oral) Med Classific ation: Cardiovas cular Therapy Agents carvedilol 3.125 mg tablet 2024-09 00:00: 00 08-04 00:00 :00 No [id number] 1 tablet 2 TIMES DAILY 1 tablet 2 TIMES DAILY (route: oral) Med Classific ation: Cardiovas cular Therapy Agents Eliquis 5 mg tablet 2024-09 00:00: 00 Yes [id number] 1 tablet 2 TIMES DAILY 1 tablet 2 TIMES DAILY (route: oral) Med Classific ation: Hematolog ical Agents Entresto 24 mg-26 mg tablet 2024-09 00:00: 00 Yes [id number] 1 tablet 2 TIMES DAILY 1 tablet 2 TIMES DAILY (route: oral) Med Classific ation: Cardiovas cular Therapy Agents ferrous sulfate 325 mg (65 mg iron) tablet 2024-09 00:00: 00 Yes [id number] 1 tablet DAILY 1 tablet DAILY (route: oral) Med Classific ation: Electroly te Balance-N utritiona l Products furosemide 20 mg tablet 2024-09 00:00: 00 Yes [id number] 1 tablet EVERY OTHER DAY 1 tablet EVERY OTHER DAY (route: oral) Med Classific ation: Cardiovas cular Therapy Agents Jardiance 10 mg tablet 2024-09 00:00: 00 Yes [id number] 1 tablet DAILY 1 tablet DAILY (route: oral) Med Classific ation: Endocrine sertraline 25 mg tablet 2024-09 00:00: 00 Yes [id number] 1 tablet DAILY 1 tablet DAILY (route: oral) Med Classific ation: Central Nervous System Agents spironolact one 25 mg tablet 2024-09 00:00: 00 Yes [id number] 1 tablet DAILY 1 tablet DAILY (route: oral) Med Classific ation: Cardiovas cular Therapy Agents Wound Cleanser irrigation spray 2024-09 00:00: 00 08-04 00:00 :00 No [id number] Per instruc tions DIRECTED Per instructio ns DIRECTED (route: irrigation ) Med Classific ation: Dermatolo gical Pharmacy Compounded Medication 2024-09 00:00: 00 08-04 00:00 :00 No [id number] Per instruc tions DIRECTED Per instructio ns DIRECTED (route: Per Instructio ns) Med Classific ation: Custom acetaminoph en 325 mg capsule 2024-09 00:00: 00 Yes [id number] 2 capsule EVERY 4 HOURS 2 capsule EVERY 4 HOURS (route: oral) Med Classific ation: Analgesic , Anti-infl ammatory or Antipyret ic amiodarone 200 mg tablet 2024-09 00:00: 00 Yes [id number] 1 tablet 2 TIMES DAILY 1 tablet 2 TIMES DAILY (route: oral) Med Classific ation: Cardiovas cular Therapy Agents carvedilol 6.25 mg tablet 2024-09 00:00: 00 Yes [id number] 1 tablet 2 TIMES DAILY 1 tablet [...] MAINTAIN SITUATIONAL AWARENESS AND WILL NOTIFY CLINICAL LINING CASER AND PHYSICIAN/PROVIDER WITH ANY CHANGE IN CONDITION. [code = SKILLED NURSE TO PERFORM ENVIRONMENTAL SAFETY RISK ASSESSMENT AND FALL RISK ASSESSMENT AND PROVIDE INSTRUCTION TO IMPLEMENT ENVIRONMENTAL SAFETY AND FALL PREVENTION STRATEGIES THROUGHOUT THE CERTIFICATION PERIOD. SKILLED NURSE WILL MAINTAIN SITUATIONAL AWARENESS AND WILL NOTIFY CLINICAL LINING CASER AND PHYSICIAN/PROVIDER WITH ANY CHANGE IN CONDITION.] [...] 2025-10-02 00:00:00 Outpatient ASHLEY EVERETT [facility] [id number] 17.1 4
--- OUTSIDE RECORDS SUMMARY | 2025-10-01 18:00 | XMS_ITS | Clinical Summary ---
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) USE OF ANTICOAGULAN TS Active 09-24 [...] 81 mg tablet 2024-09 00:00: 00 Yes [id number] 1 tablet DAILY 1 tablet DAILY (route: oral) Med Classific ation: Hematolog ical Agents atorvastati n 10 mg tablet 2024-09 00:00: 00 Yes [id number] 1 tablet DAILY 1 tablet DAILY (route: oral) Med Classific ation: Cardiovas cular Therapy Agents carvedilol 3.125 mg tablet 2024-09 00:00: 00 08-04 00:00 :00 No [id number] 1 tablet 2 TIMES DAILY 1 tablet 2 TIMES DAILY (route: oral) Med Classific ation: Cardiovas cular Therapy Agents Eliquis 5 mg tablet 2024-09 00:00: 00 Yes [id number] 1 tablet 2 TIMES DAILY 1 tablet 2 TIMES DAILY (route: oral) Med Classific ation: Hematolog ical Agents Entresto 24 mg-26 mg tablet 2024-09 00:00: 00 Yes [id number] 1 tablet 2 TIMES DAILY 1 tablet 2 TIMES DAILY (route: oral) Med Classific ation: Cardiovas cular Therapy Agents ferrous sulfate 325 mg (65 mg iron) tablet 2024-09 00:00: 00 Yes [id number] 1 tablet DAILY 1 tablet DAILY (route: oral) Med Classific ation: Electroly te Balance-N utritiona l Products furosemide 20 mg tablet 2024-09 00:00: 00 Yes [id number] 1 tablet EVERY OTHER DAY 1 tablet EVERY OTHER DAY (route: oral) Med Classific ation: Cardiovas cular Therapy Agents Jardiance 10 mg tablet 2024-09 00:00: 00 Yes [id number] 1 tablet DAILY 1 tablet DAILY (route: oral) Med Classific ation: Endocrine sertraline 25 mg tablet 2024-09 00:00: 00 Yes [id number] 1 tablet DAILY 1 tablet DAILY (route: oral) Med Classific ation: Central Nervous System Agents spironolact one 25 mg tablet 2024-09 00:00: 00 Yes [id number] 1 tablet DAILY 1 tablet DAILY (route: oral) Med Classific ation: Cardiovas cular Therapy Agents Wound Cleanser irrigation spray 2024-09 00:00: 00 08-04 00:00 :00 No [id number] Per instruc tions DIRECTED Per instructio ns DIRECTED (route: irrigation ) Med Classific ation: Dermatolo gical Pharmacy Compounded Medication 2024-09 00:00: 00 08-04 00:00 :00 No [id number] Per instruc tions DIRECTED Per instructio ns DIRECTED (route: Per Instructio ns) Med Classific ation: Custom acetaminoph en 325 mg capsule 2024-09 00:00: 00 Yes [id number] 2 capsule EVERY 4 HOURS 2 capsule EVERY 4 HOURS (route: oral) Med Classific ation: Analgesic , Anti-infl ammatory or Antipyret ic amiodarone 200 mg tablet 2024-09 00:00: 00 Yes [id number] 1 tablet 2 TIMES DAILY 1 tablet 2 TIMES DAILY (route: oral) Med Classific ation: Cardiovas cular Therapy Agents carvedilol 6.25 mg tablet 2024-09 00:00: 00 Yes [id number] 1 tablet 2 TIMES DAILY 1 tablet [...] MAINTAIN SITUATIONAL AWARENESS AND WILL NOTIFY CLINICAL PASTING MACHINE OFFBEARER AND PHYSICIAN/PROVIDER WITH ANY CHANGE IN CONDITION. [code = SKILLED NURSE TO PERFORM ENVIRONMENTAL SAFETY RISK ASSESSMENT AND FALL RISK ASSESSMENT AND PROVIDE INSTRUCTION TO IMPLEMENT ENVIRONMENTAL SAFETY AND FALL PREVENTION STRATEGIES THROUGHOUT THE CERTIFICATION PERIOD. SKILLED NURSE WILL MAINTAIN SITUATIONAL AWARENESS AND WILL NOTIFY CLINICAL PASTING MACHINE OFFBEARER AND PHYSICIAN/PROVIDER WITH ANY CHANGE IN CONDITION.] [...] CARE WILL BE ESTABLISHED THAT MEETS PATIENT'S PENITENTIARY NEEDS AND INCLUDES PATIENT GOAL FOR HOME [...] NOTED. PATIENT'S CALENDAR WAS REVIEWED REGARDING NEXT PENITENTIARY VISIT. PATIENT ADVISED TO CALL [facility] WITH ANY QUESTIONS CONCERNS OR CHANGES IN HEALTH STATUS</paragraph> Encounters Start Date/Time End Date/Time Encounter Type Admission Type Attending [facility] Care Department Encounter ID Discharge Date Discharge Status Discharge Condition Discharge Reason Percent Goals Met 2025-08-04 00:00:00 2025-10-02 00:00:00 Outpatient ASHLEY EVERETT [facility] [id number] 17.1 4
--- OUTSIDE RECORDS SUMMARY | 2025-10-01 18:00 | XMS_ITS | Clinical Summary ---
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 Active 09-24 00:00: 00 STEAK SAUCE MAKER (CURRENT) USE OF ANTICOAGULAN TS Active 09-24 [...] 81 mg tablet 2024-09 00:00: 00 Yes [id number] 1 tablet DAILY 1 tablet DAILY (route: oral) Med Classific ation: Hematolog ical Agents atorvastati n 10 mg tablet 2024-09 00:00: 00 Yes [id number] 1 tablet DAILY 1 tablet DAILY (route: oral) Med Classific ation: Cardiovas cular Therapy Agents carvedilol 3.125 mg tablet 2024-09 00:00: 00 08-04 00:00 :00 No [id number] 1 tablet 2 TIMES DAILY 1 tablet 2 TIMES DAILY (route: oral) Med Classific ation: Cardiovas cular Therapy Agents Eliquis 5 mg tablet 2024-09 00:00: 00 Yes [id number] 1 tablet 2 TIMES DAILY 1 tablet 2 TIMES DAILY (route: oral) Med Classific ation: Hematolog ical Agents Entresto 24 mg-26 mg tablet 2024-09 00:00: 00 Yes [id number] 1 tablet 2 TIMES DAILY 1 tablet 2 TIMES DAILY (route: oral) Med Classific ation: Cardiovas cular Therapy Agents ferrous sulfate 325 mg (65 mg iron) tablet 2024-09 00:00: 00 Yes [id number] 1 tablet DAILY 1 tablet DAILY (route: oral) Med Classific ation: Electroly te Balance-N utritiona l Products furosemide 20 mg tablet 2024-09 00:00: 00 Yes [id number] 1 tablet EVERY OTHER DAY 1 tablet EVERY OTHER DAY (route: oral) Med Classific ation: Cardiovas cular Therapy Agents Jardiance 10 mg tablet 2024-09 00:00: 00 Yes [id number] 1 tablet DAILY 1 tablet DAILY (route: oral) Med Classific ation: Endocrine sertraline 25 mg tablet 2024-09 00:00: 00 Yes [id number] 1 tablet DAILY 1 tablet DAILY (route: oral) Med Classific ation: Central Nervous System Agents spironolact one 25 mg tablet 2024-09 00:00: 00 Yes [id number] 1 tablet DAILY 1 tablet DAILY (route: oral) Med Classific ation: Cardiovas cular Therapy Agents Wound Cleanser irrigation spray 2024-09 00:00: 00 08-04 00:00 :00 No [id number] Per instruc tions DIRECTED Per instructio ns DIRECTED (route: irrigation ) Med Classific ation: Dermatolo gical Pharmacy Compounded Medication 2024-09 00:00: 00 08-04 00:00 :00 No [id number] Per instruc tions DIRECTED Per instructio ns DIRECTED (route: Per Instructio ns) Med Classific ation: Custom acetaminoph en 325 mg capsule 2024-09 00:00: 00 Yes [id number] 2 capsule EVERY 4 HOURS 2 capsule EVERY 4 HOURS (route: oral) Med Classific ation: Analgesic , Anti-infl ammatory or Antipyret ic amiodarone 200 mg tablet 2024-09 00:00: 00 Yes [id number] 1 tablet 2 TIMES DAILY 1 tablet 2 TIMES DAILY (route: oral) Med Classific ation: Cardiovas cular Therapy Agents carvedilol 6.25 mg tablet 2024-09 00:00: 00 Yes [id number] 1 tablet 2 TIMES DAILY 1 tablet [...] MAINTAIN SITUATIONAL AWARENESS AND WILL NOTIFY CLINICAL POWER BARKER OPERATOR AND PHYSICIAN/PROVIDER WITH ANY CHANGE IN CONDITION. [code = SKILLED NURSE TO PERFORM ENVIRONMENTAL SAFETY RISK ASSESSMENT AND FALL RISK ASSESSMENT AND PROVIDE INSTRUCTION TO IMPLEMENT ENVIRONMENTAL SAFETY AND FALL PREVENTION STRATEGIES THROUGHOUT THE CERTIFICATION PERIOD. SKILLED NURSE WILL MAINTAIN SITUATIONAL AWARENESS AND WILL NOTIFY CLINICAL POWER BARKER OPERATOR AND PHYSICIAN/PROVIDER WITH ANY CHANGE IN CONDITION.] [...] 00:00:00 Outpatient ASHLEY EVERETT [facility] [id number] 17.1 4
--- OUTSIDE RECORDS SUMMARY | 2025-10-01 18:00 | XMS_ITS | Clinical Summary ---
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) USE OF ORAL HYPOGLYCEMIC DRUGS Active 09-24 00:00: 00 BODY SPECIALIST (CURRENT) USE OF ASPIRIN Active 09-24 00:00: 00 BODY SPECIALIST (CURRENT) USE OF ANTICOAGULAN TS Active [...] 81 mg tablet 2024-09 00:00: 00 Yes [id number] 1 tablet DAILY 1 tablet DAILY (route: oral) Med Classific ation: Hematolog ical Agents atorvastati n 10 mg tablet 2024-09 00:00: 00 Yes [id number] 1 tablet DAILY 1 tablet DAILY (route: oral) Med Classific ation: Cardiovas cular Therapy Agents carvedilol 3.125 mg tablet 2024-09 00:00: 00 08-04 00:00 :00 No [id number] 1 tablet 2 TIMES DAILY 1 tablet 2 TIMES DAILY (route: oral) Med Classific ation: Cardiovas cular Therapy Agents Eliquis 5 mg tablet 2024-09 00:00: 00 Yes [id number] 1 tablet 2 TIMES DAILY 1 tablet 2 TIMES DAILY (route: oral) Med Classific ation: Hematolog ical Agents Entresto 24 mg-26 mg tablet 2024-09 00:00: 00 Yes [id number] 1 tablet 2 TIMES DAILY 1 tablet 2 TIMES DAILY (route: oral) Med Classific ation: Cardiovas cular Therapy Agents ferrous sulfate 325 mg (65 mg iron) tablet 2024-09 00:00: 00 Yes [id number] 1 tablet DAILY 1 tablet DAILY (route: oral) Med Classific ation: Electroly te Balance-N utritiona l Products furosemide 20 mg tablet 2024-09 00:00: 00 Yes [id number] 1 tablet EVERY OTHER DAY 1 tablet EVERY OTHER DAY (route: oral) Med Classific ation: Cardiovas cular Therapy Agents Jardiance 10 mg tablet 2024-09 00:00: 00 Yes [id number] 1 tablet DAILY 1 tablet DAILY (route: oral) Med Classific ation: Endocrine sertraline 25 mg tablet 2024-09 00:00: 00 Yes [id number] 1 tablet DAILY 1 tablet DAILY (route: oral) Med Classific ation: Central Nervous System Agents spironolact one 25 mg tablet 2024-09 00:00: 00 Yes [id number] 1 tablet DAILY 1 tablet DAILY (route: oral) Med Classific ation: Cardiovas cular Therapy Agents Wound Cleanser irrigation spray 2024-09 00:00: 00 08-04 00:00 :00 No [id number] Per instruc tions DIRECTED Per instructio ns DIRECTED (route: irrigation ) Med Classific ation: Dermatolo gical Pharmacy Compounded Medication 2024-09 00:00: 00 08-04 00:00 :00 No [id number] Per instruc tions DIRECTED Per instructio ns DIRECTED (route: Per Instructio ns) Med Classific ation: Custom acetaminoph en 325 mg capsule 2024-09 00:00: 00 Yes [id number] 2 capsule EVERY 4 HOURS 2 capsule EVERY 4 HOURS (route: oral) Med Classific ation: Analgesic , Anti-infl ammatory or Antipyret ic amiodarone 200 mg tablet 2024-09 00:00: 00 Yes [id number] 1 tablet 2 TIMES DAILY 1 tablet 2 TIMES DAILY (route: oral) Med Classific ation: Cardiovas cular Therapy Agents carvedilol 6.25 mg tablet 2024-09 00:00: 00 Yes [id number] 1 tablet 2 TIMES DAILY 1 tablet [...] MAINTAIN SITUATIONAL AWARENESS AND WILL NOTIFY CLINICAL EMISSIONS TECHNICIAN AND PHYSICIAN/PROVIDER WITH ANY CHANGE IN CONDITION. [code = SKILLED NURSE TO PERFORM ENVIRONMENTAL SAFETY RISK ASSESSMENT AND FALL RISK ASSESSMENT AND PROVIDE INSTRUCTION TO IMPLEMENT ENVIRONMENTAL SAFETY AND FALL PREVENTION STRATEGIES THROUGHOUT THE CERTIFICATION PERIOD. SKILLED NURSE WILL MAINTAIN SITUATIONAL AWARENESS AND WILL NOTIFY CLINICAL EMISSIONS TECHNICIAN AND PHYSICIAN/PROVIDER WITH ANY CHANGE IN CONDITION.] [...] CARE WILL BE ESTABLISHED THAT MEETS PATIENT'S GROUP HOME NEEDS AND INCLUDES PATIENT GOAL FOR [...] NOTED. PATIENT'S CALENDAR WAS REVIEWED REGARDING NEXT GROUP HOME VISIT. PATIENT ADVISED TO CALL [facility] WITH ANY QUESTIONS CONCERNS OR CHANGES IN HEALTH STATUS</paragraph> Encounters Start Date/Time End Date/Time Encounter Type Admission Type Attending [facility] Care Department Encounter ID Discharge Date Discharge Status Discharge Condition Discharge Reason Percent Goals Met 2025-08-04 00:00:00 2025-10-02 00:00:00 Outpatient ASHLEY EVERETT [facility] [id number] 17.1 4
--- OUTSIDE RECORDS SUMMARY | 2025-10-01 18:00 | XMS_ITS | Clinical Summary ---
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) USE OF ORAL HYPOGLYCEMIC DRUGS Active 09-24 00:00: 00 RECREATION OFFICER (CURRENT) USE OF ASPIRIN Active 09-24 00:00: 00 RECREATION OFFICER (CURRENT) USE OF ANTICOAGULAN TS Active [...] 81 mg tablet 2024-09 00:00: 00 Yes [id number] 1 tablet DAILY 1 tablet DAILY (route: oral) Med Classific ation: Hematolog ical Agents atorvastati n 10 mg tablet 2024-09 00:00: 00 Yes [id number] 1 tablet DAILY 1 tablet DAILY (route: oral) Med Classific ation: Cardiovas cular Therapy Agents carvedilol 3.125 mg tablet 2024-09 00:00: 00 08-04 00:00 :00 No [id number] 1 tablet 2 TIMES DAILY 1 tablet 2 TIMES DAILY (route: oral) Med Classific ation: Cardiovas cular Therapy Agents Eliquis 5 mg tablet 2024-09 00:00: 00 Yes [id number] 1 tablet 2 TIMES DAILY 1 tablet 2 TIMES DAILY (route: oral) Med Classific ation: Hematolog ical Agents Entresto 24 mg-26 mg tablet 2024-09 00:00: 00 Yes [id number] 1 tablet 2 TIMES DAILY 1 tablet 2 TIMES DAILY (route: oral) Med Classific ation: Cardiovas cular Therapy Agents ferrous sulfate 325 mg (65 mg iron) tablet 2024-09 00:00: 00 Yes [id number] 1 tablet DAILY 1 tablet DAILY (route: oral) Med Classific ation: Electroly te Balance-N utritiona l Products furosemide 20 mg tablet 2024-09 00:00: 00 Yes [id number] 1 tablet EVERY OTHER DAY 1 tablet EVERY OTHER DAY (route: oral) Med Classific ation: Cardiovas cular Therapy Agents Jardiance 10 mg tablet 2024-09 00:00: 00 Yes [id number] 1 tablet DAILY 1 tablet DAILY (route: oral) Med Classific ation: Endocrine sertraline 25 mg tablet 2024-09 00:00: 00 Yes [id number] 1 tablet DAILY 1 tablet DAILY (route: oral) Med Classific ation: Central Nervous System Agents spironolact one 25 mg tablet 2024-09 00:00: 00 Yes [id number] 1 tablet DAILY 1 tablet DAILY (route: oral) Med Classific ation: Cardiovas cular Therapy Agents Wound Cleanser irrigation spray 2024-09 00:00: 00 08-04 00:00 :00 No [id number] Per instruc tions DIRECTED Per instructio ns DIRECTED (route: irrigation ) Med Classific ation: Dermatolo gical Pharmacy Compounded Medication 2024-09 00:00: 00 08-04 00:00 :00 No [id number] Per instruc tions DIRECTED Per instructio ns DIRECTED (route: Per Instructio ns) Med Classific ation: Custom acetaminoph en 325 mg capsule 2024-09 00:00: 00 Yes [id number] 2 capsule EVERY 4 HOURS 2 capsule EVERY 4 HOURS (route: oral) Med Classific ation: Analgesic , Anti-infl ammatory or Antipyret ic amiodarone 200 mg tablet 2024-09 00:00: 00 Yes [id number] 1 tablet 2 TIMES DAILY 1 tablet 2 TIMES DAILY (route: oral) Med Classific ation: Cardiovas cular Therapy Agents carvedilol 6.25 mg tablet 2024-09 00:00: 00 Yes [id number] 1 tablet 2 TIMES DAILY 1 tablet [...] MAINTAIN SITUATIONAL AWARENESS AND WILL NOTIFY CLINICAL ELECTRICAL ENGINEERING DIRECTOR AND PHYSICIAN/PROVIDER WITH ANY CHANGE IN CONDITION. [code = SKILLED NURSE TO PERFORM ENVIRONMENTAL SAFETY RISK ASSESSMENT AND FALL RISK ASSESSMENT AND PROVIDE INSTRUCTION TO IMPLEMENT ENVIRONMENTAL SAFETY AND FALL PREVENTION STRATEGIES THROUGHOUT THE CERTIFICATION PERIOD. SKILLED NURSE WILL MAINTAIN SITUATIONAL AWARENESS AND WILL NOTIFY CLINICAL ELECTRICAL ENGINEERING DIRECTOR AND PHYSICIAN/PROVIDER WITH ANY CHANGE IN CONDITION.] [...] End Date/Time Encounter Type Admission Type Attending [facility] Care Department Encounter ID Discharge Date Discharge Status Discharge Condition Discharge Reason Percent Goals Met 2025-08-04 00:00:00 2025-10-02 00:00:00 Outpatient ASHLEY EVERETT [facility] [id number] 17.1 4
--- OUTSIDE RECORDS SUMMARY | 2025-10-01 18:00 | XMS_ITS | Clinical Summary ---
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) USE OF ORAL HYPOGLYCEMIC DRUGS Active 09-24 00:00: 00 HIDE HOUSE SUPERVISOR (CURRENT) USE OF ASPIRIN Active 09-24 00:00: 00 HIDE HOUSE SUPERVISOR (CURRENT) USE OF ANTICOAGULAN TS Active [...] 81 mg tablet 2024-09 00:00: 00 Yes [id number] 1 tablet DAILY 1 tablet DAILY (route: oral) Med Classific ation: Hematolog ical Agents atorvastati n 10 mg tablet 2024-09 00:00: 00 Yes [id number] 1 tablet DAILY 1 tablet DAILY (route: oral) Med Classific ation: Cardiovas cular Therapy Agents carvedilol 3.125 mg tablet 2024-09 00:00: 00 08-04 00:00 :00 No [id number] 1 tablet 2 TIMES DAILY 1 tablet 2 TIMES DAILY (route: oral) Med Classific ation: Cardiovas cular Therapy Agents Eliquis 5 mg tablet 2024-09 00:00: 00 Yes [id number] 1 tablet 2 TIMES DAILY 1 tablet 2 TIMES DAILY (route: oral) Med Classific ation: Hematolog ical Agents Entresto 24 mg-26 mg tablet 2024-09 00:00: 00 Yes [id number] 1 tablet 2 TIMES DAILY 1 tablet 2 TIMES DAILY (route: oral) Med Classific ation: Cardiovas cular Therapy Agents ferrous sulfate 325 mg (65 mg iron) tablet 2024-09 00:00: 00 Yes [id number] 1 tablet DAILY 1 tablet DAILY (route: oral) Med Classific ation: Electroly te Balance-N utritiona l Products furosemide 20 mg tablet 2024-09 00:00: 00 Yes [id number] 1 tablet EVERY OTHER DAY 1 tablet EVERY OTHER DAY (route: oral) Med Classific ation: Cardiovas cular Therapy Agents Jardiance 10 mg tablet 2024-09 00:00: 00 Yes [id number] 1 tablet DAILY 1 tablet DAILY (route: oral) Med Classific ation: Endocrine sertraline 25 mg tablet 2024-09 00:00: 00 Yes [id number] 1 tablet DAILY 1 tablet DAILY (route: oral) Med Classific ation: Central Nervous System Agents spironolact one 25 mg tablet 2024-09 00:00: 00 Yes [id number] 1 tablet DAILY 1 tablet DAILY (route: oral) Med Classific ation: Cardiovas cular Therapy Agents Wound Cleanser irrigation spray 2024-09 00:00: 00 08-04 00:00 :00 No [id number] Per instruc tions DIRECTED Per instructio ns DIRECTED (route: irrigation ) Med Classific ation: Dermatolo gical Pharmacy Compounded Medication 2024-09 00:00: 00 08-04 00:00 :00 No [id number] Per instruc tions DIRECTED Per instructio ns DIRECTED (route: Per Instructio ns) Med Classific ation: Custom acetaminoph en 325 mg capsule 2024-09 00:00: 00 Yes [id number] 2 capsule EVERY 4 HOURS 2 capsule EVERY 4 HOURS (route: oral) Med Classific ation: Analgesic , Anti-infl ammatory or Antipyret ic amiodarone 200 mg tablet 2024-09 00:00: 00 Yes [id number] 1 tablet 2 TIMES DAILY 1 tablet 2 TIMES DAILY (route: oral) Med Classific ation: Cardiovas cular Therapy Agents carvedilol 6.25 mg tablet 2024-09 00:00: 00 Yes [id number] 1 tablet 2 TIMES DAILY 1 tablet [...] MAINTAIN SITUATIONAL AWARENESS AND WILL NOTIFY CLINICAL MANAGER SMALL BUSINESS AND PHYSICIAN/PROVIDER WITH ANY CHANGE IN CONDITION. [code = SKILLED NURSE TO PERFORM ENVIRONMENTAL SAFETY RISK ASSESSMENT AND FALL RISK ASSESSMENT AND PROVIDE INSTRUCTION TO IMPLEMENT ENVIRONMENTAL SAFETY AND FALL PREVENTION STRATEGIES THROUGHOUT THE CERTIFICATION PERIOD. SKILLED NURSE WILL MAINTAIN SITUATIONAL AWARENESS AND WILL NOTIFY CLINICAL MANAGER SMALL BUSINESS AND PHYSICIAN/PROVIDER WITH ANY CHANGE IN CONDITION.] [...] CARE WILL BE ESTABLISHED THAT MEETS PATIENT'S SHELTER NEEDS AND INCLUDES PATIENT GOAL FOR HOME [...] NOTED. PATIENT'S CALENDAR WAS REVIEWED REGARDING NEXT SHELTER VISIT. PATIENT ADVISED TO CALL [facility] WITH ANY QUESTIONS CONCERNS OR CHANGES IN HEALTH STATUS</paragraph> Encounters Start Date/Time End Date/Time Encounter Type Admission Type Attending [facility] Care Department Encounter ID Discharge Date Discharge Status Discharge Condition Discharge Reason Percent Goals Met 2025-08-04 00:00:00 2025-10-02 00:00:00 Outpatient ASHLEY EVERETT [facility] [id number] 17.1 4
--- OUTSIDE RECORDS SUMMARY | 2025-10-01 18:00 | XMS_ITS | Clinical Summary ---
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) USE OF ORAL HYPOGLYCEMIC DRUGS Active 09-24 00:00: 00 GAS OPERATION MANAGER (CURRENT) USE OF ASPIRIN Active 09-24 00:00: 00 GAS OPERATION MANAGER (CURRENT) USE OF ANTICOAGULAN TS Active [...] 81 mg tablet 2024-09 00:00: 00 Yes [id number] 1 tablet DAILY 1 tablet DAILY (route: oral) Med Classific ation: Hematolog ical Agents atorvastati n 10 mg tablet 2024-09 00:00: 00 Yes [id number] 1 tablet DAILY 1 tablet DAILY (route: oral) Med Classific ation: Cardiovas cular Therapy Agents carvedilol 3.125 mg tablet 2024-09 00:00: 00 08-04 00:00 :00 No [id number] 1 tablet 2 TIMES DAILY 1 tablet 2 TIMES DAILY (route: oral) Med Classific ation: Cardiovas cular Therapy Agents Eliquis 5 mg tablet 2024-09 00:00: 00 Yes [id number] 1 tablet 2 TIMES DAILY 1 tablet 2 TIMES DAILY (route: oral) Med Classific ation: Hematolog ical Agents Entresto 24 mg-26 mg tablet 2024-09 00:00: 00 Yes [id number] 1 tablet 2 TIMES DAILY 1 tablet 2 TIMES DAILY (route: oral) Med Classific ation: Cardiovas cular Therapy Agents ferrous sulfate 325 mg (65 mg iron) tablet 2024-09 00:00: 00 Yes [id number] 1 tablet DAILY 1 tablet DAILY (route: oral) Med Classific ation: Electroly te Balance-N utritiona l Products furosemide 20 mg tablet 2024-09 00:00: 00 Yes [id number] 1 tablet EVERY OTHER DAY 1 tablet EVERY OTHER DAY (route: oral) Med Classific ation: Cardiovas cular Therapy Agents Jardiance 10 mg tablet 2024-09 00:00: 00 Yes [id number] 1 tablet DAILY 1 tablet DAILY (route: oral) Med Classific ation: Endocrine sertraline 25 mg tablet 2024-09 00:00: 00 Yes [id number] 1 tablet DAILY 1 tablet DAILY (route: oral) Med Classific ation: Central Nervous System Agents spironolact one 25 mg tablet 2024-09 00:00: 00 Yes [id number] 1 tablet DAILY 1 tablet DAILY (route: oral) Med Classific ation: Cardiovas cular Therapy Agents Wound Cleanser irrigation spray 2024-09 00:00: 00 08-04 00:00 :00 No [id number] Per instruc tions DIRECTED Per instructio ns DIRECTED (route: irrigation ) Med Classific ation: Dermatolo gical Pharmacy Compounded Medication 2024-09 00:00: 00 08-04 00:00 :00 No [id number] Per instruc tions DIRECTED Per instructio ns DIRECTED (route: Per Instructio ns) Med Classific ation: Custom acetaminoph en 325 mg capsule 2024-09 00:00: 00 Yes [id number] 2 capsule EVERY 4 HOURS 2 capsule EVERY 4 HOURS (route: oral) Med Classific ation: Analgesic , Anti-infl ammatory or Antipyret ic amiodarone 200 mg tablet 2024-09 00:00: 00 Yes [id number] 1 tablet 2 TIMES DAILY 1 tablet 2 TIMES DAILY (route: oral) Med Classific ation: Cardiovas cular Therapy Agents carvedilol 6.25 mg tablet 2024-09 00:00: 00 Yes [id number] 1 tablet 2 TIMES DAILY 1 tablet [...] MAINTAIN SITUATIONAL AWARENESS AND WILL NOTIFY CLINICAL METAL TECHNICIAN AND PHYSICIAN/PROVIDER WITH ANY CHANGE IN CONDITION. [code = SKILLED NURSE TO PERFORM ENVIRONMENTAL SAFETY RISK ASSESSMENT AND FALL RISK ASSESSMENT AND PROVIDE INSTRUCTION TO IMPLEMENT ENVIRONMENTAL SAFETY AND FALL PREVENTION STRATEGIES THROUGHOUT THE CERTIFICATION PERIOD. SKILLED NURSE WILL MAINTAIN SITUATIONAL AWARENESS AND WILL NOTIFY CLINICAL METAL TECHNICIAN AND PHYSICIAN/PROVIDER WITH ANY CHANGE IN [...] CARE WILL BE ESTABLISHED THAT MEETS PATIENT'S ASSISTED NEEDS AND INCLUDES PATIENT GOAL FOR HOME [...] NOTED. PATIENT'S CALENDAR WAS REVIEWED REGARDING NEXT ASSISTED VISIT. PATIENT ADVISED TO CALL [facility] WITH ANY QUESTIONS CONCERNS OR CHANGES IN HEALTH STATUS</paragraph> Encounters Start Date/Time End Date/Time Encounter Type Admission Type Attending [facility] Care Department Encounter ID Discharge Date Discharge Status Discharge Condition Discharge Reason Percent Goals Met 2025-08-04 00:00:00 2025-10-02 00:00:00 Outpatient ASHLEY EVERETT [facility] [id number] 17.1 4
--- OUTSIDE RECORDS SUMMARY | 2025-10-01 18:00 | XMS_ITS | Clinical Summary ---
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 (CURRENT) USE OF ASPIRIN Active 09-24 00:00: 00 DRILLING INSPECTOR (CURRENT) USE OF ANTICOAGULAN TS Active 09-24 [...] 81 mg tablet 2024-09 00:00: 00 Yes [id number] 1 tablet DAILY 1 tablet DAILY (route: oral) Med Classific ation: Hematolog ical Agents atorvastati n 10 mg tablet 2024-09 00:00: 00 Yes [id number] 1 tablet DAILY 1 tablet DAILY (route: oral) Med Classific ation: Cardiovas cular Therapy Agents carvedilol 3.125 mg tablet 2024-09 00:00: 00 08-04 00:00 :00 No [id number] 1 tablet 2 TIMES DAILY 1 tablet 2 TIMES DAILY (route: oral) Med Classific ation: Cardiovas cular Therapy Agents Eliquis 5 mg tablet 2024-09 00:00: 00 Yes [id number] 1 tablet 2 TIMES DAILY 1 tablet 2 TIMES DAILY (route: oral) Med Classific ation: Hematolog ical Agents Entresto 24 mg-26 mg tablet 2024-09 00:00: 00 Yes [id number] 1 tablet 2 TIMES DAILY 1 tablet 2 TIMES DAILY (route: oral) Med Classific ation: Cardiovas cular Therapy Agents ferrous sulfate 325 mg (65 mg iron) tablet 2024-09 00:00: 00 Yes [id number] 1 tablet DAILY 1 tablet DAILY (route: oral) Med Classific ation: Electroly te Balance-N utritiona l Products furosemide 20 mg tablet 2024-09 00:00: 00 Yes [id number] 1 tablet EVERY OTHER DAY 1 tablet EVERY OTHER DAY (route: oral) Med Classific ation: Cardiovas cular Therapy Agents Jardiance 10 mg tablet 2024-09 00:00: 00 Yes [id number] 1 tablet DAILY 1 tablet DAILY (route: oral) Med Classific ation: Endocrine sertraline 25 mg tablet 2024-09 00:00: 00 Yes [id number] 1 tablet DAILY 1 tablet DAILY (route: oral) Med Classific ation: Central Nervous System Agents spironolact one 25 mg tablet 2024-09 00:00: 00 Yes [id number] 1 tablet DAILY 1 tablet DAILY (route: oral) Med Classific ation: Cardiovas cular Therapy Agents Wound Cleanser irrigation spray 2024-09 00:00: 00 08-04 00:00 :00 No [id number] Per instruc tions DIRECTED Per instructio ns DIRECTED (route: irrigation ) Med Classific ation: Dermatolo gical Pharmacy Compounded Medication 2024-09 00:00: 00 08-04 00:00 :00 No [id number] Per instruc tions DIRECTED Per instructio ns DIRECTED (route: Per Instructio ns) Med Classific ation: Custom acetaminoph en 325 mg capsule 2024-09 00:00: 00 Yes [id number] 2 capsule EVERY 4 HOURS 2 capsule EVERY 4 HOURS (route: oral) Med Classific ation: Analgesic , Anti-infl ammatory or Antipyret ic amiodarone 200 mg tablet 2024-09 00:00: 00 Yes [id number] 1 tablet 2 TIMES DAILY 1 tablet 2 TIMES DAILY (route: oral) Med Classific ation: Cardiovas cular Therapy Agents carvedilol 6.25 mg tablet 2024-09 00:00: 00 Yes [id number] 1 tablet 2 TIMES DAILY 1 tablet [...] MAINTAIN SITUATIONAL AWARENESS AND WILL NOTIFY CLINICAL WAFER PRODUCTION WORKER AND PHYSICIAN/PROVIDER WITH ANY CHANGE IN CONDITION. [code = SKILLED NURSE TO PERFORM ENVIRONMENTAL SAFETY RISK ASSESSMENT AND FALL RISK ASSESSMENT AND PROVIDE INSTRUCTION TO IMPLEMENT ENVIRONMENTAL SAFETY AND FALL PREVENTION STRATEGIES THROUGHOUT THE CERTIFICATION PERIOD. SKILLED NURSE WILL MAINTAIN SITUATIONAL AWARENESS AND WILL NOTIFY CLINICAL WAFER PRODUCTION WORKER AND PHYSICIAN/PROVIDER WITH ANY CHANGE IN CONDITION.] [...] End Date/Time Encounter Type Admission Type Attending [facility] Care Department Encounter ID Discharge Date Discharge Status Discharge Condition Discharge Reason Percent Goals Met 2025-08-04 00:00:00 2025-10-02 00:00:00 Outpatient ASHLEY EVERETT [facility] [id number] 17.1 4
--- OUTSIDE RECORDS SUMMARY | 2025-10-01 18:00 | XMS_ITS | Clinical Summary ---
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) USE OF ORAL HYPOGLYCEMIC DRUGS Active 09-24 00:00: 00 CAMPAIGN MANAGEMENT SPECIALIST (CURRENT) USE OF ASPIRIN Active 09-24 00:00: 00 CAMPAIGN MANAGEMENT SPECIALIST (CURRENT) USE OF ANTICOAGULAN TS Active [...] 81 mg tablet 2024-09 00:00: 00 Yes [id number] 1 tablet DAILY 1 tablet DAILY (route: oral) Med Classific ation: Hematolog ical Agents atorvastati n 10 mg tablet 2024-09 00:00: 00 Yes [id number] 1 tablet DAILY 1 tablet DAILY (route: oral) Med Classific ation: Cardiovas cular Therapy Agents carvedilol 3.125 mg tablet 2024-09 00:00: 00 08-04 00:00 :00 No [id number] 1 tablet 2 TIMES DAILY 1 tablet 2 TIMES DAILY (route: oral) Med Classific ation: Cardiovas cular Therapy Agents Eliquis 5 mg tablet 2024-09 00:00: 00 Yes [id number] 1 tablet 2 TIMES DAILY 1 tablet 2 TIMES DAILY (route: oral) Med Classific ation: Hematolog ical Agents Entresto 24 mg-26 mg tablet 2024-09 00:00: 00 Yes [id number] 1 tablet 2 TIMES DAILY 1 tablet 2 TIMES DAILY (route: oral) Med Classific ation: Cardiovas cular Therapy Agents ferrous sulfate 325 mg (65 mg iron) tablet 2024-09 00:00: 00 Yes [id number] 1 tablet DAILY 1 tablet DAILY (route: oral) Med Classific ation: Electroly te Balance-N utritiona l Products furosemide 20 mg tablet 2024-09 00:00: 00 Yes [id number] 1 tablet EVERY OTHER DAY 1 tablet EVERY OTHER DAY (route: oral) Med Classific ation: Cardiovas cular Therapy Agents Jardiance 10 mg tablet 2024-09 00:00: 00 Yes [id number] 1 tablet DAILY 1 tablet DAILY (route: oral) Med Classific ation: Endocrine sertraline 25 mg tablet 2024-09 00:00: 00 Yes [id number] 1 tablet DAILY 1 tablet DAILY (route: oral) Med Classific ation: Central Nervous System Agents spironolact one 25 mg tablet 2024-09 00:00: 00 Yes [id number] 1 tablet DAILY 1 tablet DAILY (route: oral) Med Classific ation: Cardiovas cular Therapy Agents Wound Cleanser irrigation spray 2024-09 00:00: 00 08-04 00:00 :00 No [id number] Per instruc tions DIRECTED Per instructio ns DIRECTED (route: irrigation ) Med Classific ation: Dermatolo gical Pharmacy Compounded Medication 2024-09 00:00: 00 08-04 00:00 :00 No [id number] Per instruc tions DIRECTED Per instructio ns DIRECTED (route: Per Instructio ns) Med Classific ation: Custom acetaminoph en 325 mg capsule 2024-09 00:00: 00 Yes [id number] 2 capsule EVERY 4 HOURS 2 capsule EVERY 4 HOURS (route: oral) Med Classific ation: Analgesic , Anti-infl ammatory or Antipyret ic amiodarone 200 mg tablet 2024-09 00:00: 00 Yes [id number] 1 tablet 2 TIMES DAILY 1 tablet 2 TIMES DAILY (route: oral) Med Classific ation: Cardiovas cular Therapy Agents carvedilol 6.25 mg tablet 2024-09 00:00: 00 Yes [id number] 1 tablet 2 TIMES DAILY 1 tablet [...] MAINTAIN SITUATIONAL AWARENESS AND WILL NOTIFY CLINICAL MANAGING CONSULTANT AND PHYSICIAN/PROVIDER WITH ANY CHANGE IN CONDITION. [code = SKILLED NURSE TO PERFORM ENVIRONMENTAL SAFETY RISK ASSESSMENT AND FALL RISK ASSESSMENT AND PROVIDE INSTRUCTION TO IMPLEMENT ENVIRONMENTAL SAFETY AND FALL PREVENTION STRATEGIES THROUGHOUT THE CERTIFICATION PERIOD. SKILLED NURSE WILL MAINTAIN SITUATIONAL AWARENESS AND WILL NOTIFY CLINICAL MANAGING CONSULTANT AND PHYSICIAN/PROVIDER WITH ANY CHANGE IN CONDITION.] [...] Date/Time Encounter Type Admission Type Attending [facility] Care Department Encounter ID Discharge Date Discharge Status Discharge Condition Discharge Reason Percent Goals Met 2025-08-04 00:00:00 2025-10-02 00:00:00 Outpatient ASHLEY EVERETT [facility] [id number] 17.1 4
--- OUTSIDE RECORDS SUMMARY | 2025-10-01 18:00 | XMS_ITS | Clinical Summary ---
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) USE OF ORAL HYPOGLYCEMIC DRUGS Active 09-24 00:00: 00 AUTO ELECTRICIAN (CURRENT) USE OF ASPIRIN Active 09-24 00:00: 00 AUTO ELECTRICIAN (CURRENT) USE OF ANTICOAGULAN TS Active 09-24 [...] 81 mg tablet 2024-09 00:00: 00 Yes [id number] 1 tablet DAILY 1 tablet DAILY (route: oral) Med Classific ation: Hematolog ical Agents atorvastati n 10 mg tablet 2024-09 00:00: 00 Yes [id number] 1 tablet DAILY 1 tablet DAILY (route: oral) Med Classific ation: Cardiovas cular Therapy Agents carvedilol 3.125 mg tablet 2024-09 00:00: 00 08-04 00:00 :00 No [id number] 1 tablet 2 TIMES DAILY 1 tablet 2 TIMES DAILY (route: oral) Med Classific ation: Cardiovas cular Therapy Agents Eliquis 5 mg tablet 2024-09 00:00: 00 Yes [id number] 1 tablet 2 TIMES DAILY 1 tablet 2 TIMES DAILY (route: oral) Med Classific ation: Hematolog ical Agents Entresto 24 mg-26 mg tablet 2024-09 00:00: 00 Yes [id number] 1 tablet 2 TIMES DAILY 1 tablet 2 TIMES DAILY (route: oral) Med Classific ation: Cardiovas cular Therapy Agents ferrous sulfate 325 mg (65 mg iron) tablet 2024-09 00:00: 00 Yes [id number] 1 tablet DAILY 1 tablet DAILY (route: oral) Med Classific ation: Electroly te Balance-N utritiona l Products furosemide 20 mg tablet 2024-09 00:00: 00 Yes [id number] 1 tablet EVERY OTHER DAY 1 tablet EVERY OTHER DAY (route: oral) Med Classific ation: Cardiovas cular Therapy Agents Jardiance 10 mg tablet 2024-09 00:00: 00 Yes [id number] 1 tablet DAILY 1 tablet DAILY (route: oral) Med Classific ation: Endocrine sertraline 25 mg tablet 2024-09 00:00: 00 Yes [id number] 1 tablet DAILY 1 tablet DAILY (route: oral) Med Classific ation: Central Nervous System Agents spironolact one 25 mg tablet 2024-09 00:00: 00 Yes [id number] 1 tablet DAILY 1 tablet DAILY (route: oral) Med Classific ation: Cardiovas cular Therapy Agents Wound Cleanser irrigation spray 2024-09 00:00: 00 08-04 00:00 :00 No [id number] Per instruc tions DIRECTED Per instructio ns DIRECTED (route: irrigation ) Med Classific ation: Dermatolo gical Pharmacy Compounded Medication 2024-09 00:00: 00 08-04 00:00 :00 No [id number] Per instruc tions DIRECTED Per instructio ns DIRECTED (route: Per Instructio ns) Med Classific ation: Custom acetaminoph en 325 mg capsule 2024-09 00:00: 00 Yes [id number] 2 capsule EVERY 4 HOURS 2 capsule EVERY 4 HOURS (route: oral) Med Classific ation: Analgesic , Anti-infl ammatory or Antipyret ic amiodarone 200 mg tablet 2024-09 00:00: 00 Yes [id number] 1 tablet 2 TIMES DAILY 1 tablet 2 TIMES DAILY (route: oral) Med Classific ation: Cardiovas cular Therapy Agents carvedilol 6.25 mg tablet 2024-09 00:00: 00 Yes [id number] 1 tablet 2 TIMES DAILY 1 tablet [...] THE FOLLOWING PHYSICIANS: DR LAWRENCE WAITE, DR JSESIKA VINES, ON-CALL/ TREATING PROVIDERS.] Future Scheduled Test [...] MAINTAIN SITUATIONAL AWARENESS AND WILL NOTIFY CLINICAL BREAKER UP AND PHYSICIAN/PROVIDER WITH ANY CHANGE IN CONDITION. [code = SKILLED NURSE TO PERFORM ENVIRONMENTAL SAFETY RISK ASSESSMENT AND FALL RISK ASSESSMENT AND PROVIDE INSTRUCTION TO IMPLEMENT ENVIRONMENTAL SAFETY AND FALL PREVENTION STRATEGIES THROUGHOUT THE CERTIFICATION PERIOD. SKILLED NURSE WILL MAINTAIN SITUATIONAL AWARENESS AND WILL NOTIFY CLINICAL BREAKER UP AND PHYSICIAN/PROVIDER WITH ANY CHANGE IN CONDITION.] [...] End Date/Time Encounter Type Admission Type Attending [facility] Care Department Encounter ID Discharge Date Discharge Status Discharge Condition Discharge Reason Percent Goals Met 2025-08-04 00:00:00 2025-10-02 00:00:00 Outpatient ASHLEY EVERETT [facility] [id number] 17.1 4
--- OUTSIDE RECORDS SUMMARY | 2025-10-01 18:00 | XMS_ITS | Clinical Summary ---
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) USE OF ASPIRIN Active 09-24 00:00: 00 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 OPERATOR (CURRENT) USE OF ANTICOAGULAN TS Active [...] 81 mg tablet 2024-09 00:00: 00 Yes [id number] 1 tablet DAILY 1 tablet DAILY (route: oral) Med Classific ation: Hematolog ical Agents atorvastati n 10 mg tablet 2024-09 00:00: 00 Yes [id number] 1 tablet DAILY 1 tablet DAILY (route: oral) Med Classific ation: Cardiovas cular Therapy Agents carvedilol 3.125 mg tablet 2024-09 00:00: 00 08-04 00:00 :00 No [id number] 1 tablet 2 TIMES DAILY 1 tablet 2 TIMES DAILY (route: oral) Med Classific ation: Cardiovas cular Therapy Agents Eliquis 5 mg tablet 2024-09 00:00: 00 Yes [id number] 1 tablet 2 TIMES DAILY 1 tablet 2 TIMES DAILY (route: oral) Med Classific ation: Hematolog ical Agents Entresto 24 mg-26 mg tablet 2024-09 00:00: 00 Yes [id number] 1 tablet 2 TIMES DAILY 1 tablet 2 TIMES DAILY (route: oral) Med Classific ation: Cardiovas cular Therapy Agents ferrous sulfate 325 mg (65 mg iron) tablet 2024-09 00:00: 00 Yes [id number] 1 tablet DAILY 1 tablet DAILY (route: oral) Med Classific ation: Electroly te Balance-N utritiona l Products furosemide 20 mg tablet 2024-09 00:00: 00 Yes [id number] 1 tablet EVERY OTHER DAY 1 tablet EVERY OTHER DAY (route: oral) Med Classific ation: Cardiovas cular Therapy Agents Jardiance 10 mg tablet 2024-09 00:00: 00 Yes [id number] 1 tablet DAILY 1 tablet DAILY (route: oral) Med Classific ation: Endocrine sertraline 25 mg tablet 2024-09 00:00: 00 Yes [id number] 1 tablet DAILY 1 tablet DAILY (route: oral) Med Classific ation: Central Nervous System Agents spironolact one 25 mg tablet 2024-09 00:00: 00 Yes [id number] 1 tablet DAILY 1 tablet DAILY (route: oral) Med Classific ation: Cardiovas cular Therapy Agents Wound Cleanser irrigation spray 2024-09 00:00: 00 08-04 00:00 :00 No [id number] Per instruc tions DIRECTED Per instructio ns DIRECTED (route: irrigation ) Med Classific ation: Dermatolo gical Pharmacy Compounded Medication 2024-09 00:00: 00 08-04 00:00 :00 No [id number] Per instruc tions DIRECTED Per instructio ns DIRECTED (route: Per Instructio ns) Med Classific ation: Custom acetaminoph en 325 mg capsule 2024-09 00:00: 00 Yes [id number] 2 capsule EVERY 4 HOURS 2 capsule EVERY 4 HOURS (route: oral) Med Classific ation: Analgesic , Anti-infl ammatory or Antipyret ic amiodarone 200 mg tablet 2024-09 00:00: 00 Yes [id number] 1 tablet 2 TIMES DAILY 1 tablet 2 TIMES DAILY (route: oral) Med Classific ation: Cardiovas cular Therapy Agents carvedilol 6.25 mg tablet 2024-09 00:00: 00 Yes [id number] 1 tablet 2 TIMES DAILY 1 tablet [...] MAINTAIN SITUATIONAL AWARENESS AND WILL NOTIFY CLINICAL TOMATO PULPER OPERATOR AND PHYSICIAN/PROVIDER WITH ANY CHANGE IN CONDITION. [code = SKILLED NURSE TO PERFORM ENVIRONMENTAL SAFETY RISK ASSESSMENT AND FALL RISK ASSESSMENT AND PROVIDE INSTRUCTION TO IMPLEMENT ENVIRONMENTAL SAFETY AND FALL PREVENTION STRATEGIES THROUGHOUT THE CERTIFICATION PERIOD. SKILLED NURSE WILL MAINTAIN SITUATIONAL AWARENESS AND WILL NOTIFY CLINICAL TOMATO PULPER OPERATOR AND PHYSICIAN/PROVIDER WITH ANY CHANGE IN [...] End Date/Time Encounter Type Admission Type Attending [facility] Care Department Encounter ID Discharge Date Discharge Status Discharge Condition Discharge Reason Percent Goals Met 2025-08-04 00:00:00 2025-10-02 00:00:00 Outpatient ASHLEY EVERETT [facility] [id number] 17.1 4
--- OUTSIDE RECORDS SUMMARY | 2025-10-01 18:00 | XMS_ITS | Clinical Summary ---
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) USE OF ORAL HYPOGLYCEMIC DRUGS Active 09-24 00:00: 00 CLAY ARTISAN (CURRENT) USE OF ASPIRIN Active 09-24 00:00: 00 CLAY ARTISAN (CURRENT) USE OF ANTICOAGULAN TS Active 09-24 [...] 81 mg tablet 2024-09 00:00: 00 Yes [id number] 1 tablet DAILY 1 tablet DAILY (route: oral) Med Classific ation: Hematolog ical Agents atorvastati n 10 mg tablet 2024-09 00:00: 00 Yes [id number] 1 tablet DAILY 1 tablet DAILY (route: oral) Med Classific ation: Cardiovas cular Therapy Agents carvedilol 3.125 mg tablet 2024-09 00:00: 00 08-04 00:00 :00 No [id number] 1 tablet 2 TIMES DAILY 1 tablet 2 TIMES DAILY (route: oral) Med Classific ation: Cardiovas cular Therapy Agents Eliquis 5 mg tablet 2024-09 00:00: 00 Yes [id number] 1 tablet 2 TIMES DAILY 1 tablet 2 TIMES DAILY (route: oral) Med Classific ation: Hematolog ical Agents Entresto 24 mg-26 mg tablet 2024-09 00:00: 00 Yes [id number] 1 tablet 2 TIMES DAILY 1 tablet 2 TIMES DAILY (route: oral) Med Classific ation: Cardiovas cular Therapy Agents ferrous sulfate 325 mg (65 mg iron) tablet 2024-09 00:00: 00 Yes [id number] 1 tablet DAILY 1 tablet DAILY (route: oral) Med Classific ation: Electroly te Balance-N utritiona l Products furosemide 20 mg tablet 2024-09 00:00: 00 Yes [id number] 1 tablet EVERY OTHER DAY 1 tablet EVERY OTHER DAY (route: oral) Med Classific ation: Cardiovas cular Therapy Agents Jardiance 10 mg tablet 2024-09 00:00: 00 Yes [id number] 1 tablet DAILY 1 tablet DAILY (route: oral) Med Classific ation: Endocrine sertraline 25 mg tablet 2024-09 00:00: 00 Yes [id number] 1 tablet DAILY 1 tablet DAILY (route: oral) Med Classific ation: Central Nervous System Agents spironolact one 25 mg tablet 2024-09 00:00: 00 Yes [id number] 1 tablet DAILY 1 tablet DAILY (route: oral) Med Classific ation: Cardiovas cular Therapy Agents Wound Cleanser irrigation spray 2024-09 00:00: 00 08-04 00:00 :00 No [id number] Per instruc tions DIRECTED Per instructio ns DIRECTED (route: irrigation ) Med Classific ation: Dermatolo gical Pharmacy Compounded Medication 2024-09 00:00: 00 08-04 00:00 :00 No [id number] Per instruc tions DIRECTED Per instructio ns DIRECTED (route: Per Instructio ns) Med Classific ation: Custom acetaminoph en 325 mg capsule 2024-09 00:00: 00 Yes [id number] 2 capsule EVERY 4 HOURS 2 capsule EVERY 4 HOURS (route: oral) Med Classific ation: Analgesic , Anti-infl ammatory or Antipyret ic amiodarone 200 mg tablet 2024-09 00:00: 00 Yes [id number] 1 tablet 2 TIMES DAILY 1 tablet 2 TIMES DAILY (route: oral) Med Classific ation: Cardiovas cular Therapy Agents carvedilol 6.25 mg tablet 2024-09 00:00: 00 Yes [id number] 1 tablet 2 TIMES DAILY 1 tablet [...] MAINTAIN SITUATIONAL AWARENESS AND WILL NOTIFY CLINICAL DIRECTOR OF OPERATIONS AND PHYSICIAN/PROVIDER WITH ANY CHANGE IN CONDITION. [code = SKILLED NURSE TO PERFORM ENVIRONMENTAL SAFETY RISK ASSESSMENT AND FALL RISK ASSESSMENT AND PROVIDE INSTRUCTION TO IMPLEMENT ENVIRONMENTAL SAFETY AND FALL PREVENTION STRATEGIES THROUGHOUT THE CERTIFICATION PERIOD. SKILLED NURSE WILL MAINTAIN SITUATIONAL AWARENESS AND WILL NOTIFY CLINICAL DIRECTOR OF OPERATIONS AND PHYSICIAN/PROVIDER WITH ANY CHANGE IN CONDITION.] [...] 00:00:00 2025-10-02 00:00:00 Outpatient ASHLEY EVERETT [facility] [id number] 17.1 4
--- OUTSIDE RECORDS SUMMARY | 2025-10-01 18:00 | XMS_ITS | Clinical Summary ---
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 (CURRENT) USE OF ASPIRIN Active 09-24 00:00: 00 FAST FOOD ATTENDANT (CURRENT) USE OF ANTICOAGULAN TS Active 09-24 [...] 81 mg tablet 2024-09 00:00: 00 Yes [id number] 1 tablet DAILY 1 tablet DAILY (route: oral) Med Classific ation: Hematolog ical Agents atorvastati n 10 mg tablet 2024-09 00:00: 00 Yes [id number] 1 tablet DAILY 1 tablet DAILY (route: oral) Med Classific ation: Cardiovas cular Therapy Agents carvedilol 3.125 mg tablet 2024-09 00:00: 00 08-04 00:00 :00 No [id number] 1 tablet 2 TIMES DAILY 1 tablet 2 TIMES DAILY (route: oral) Med Classific ation: Cardiovas cular Therapy Agents Eliquis 5 mg tablet 2024-09 00:00: 00 Yes [id number] 1 tablet 2 TIMES DAILY 1 tablet 2 TIMES DAILY (route: oral) Med Classific ation: Hematolog ical Agents Entresto 24 mg-26 mg tablet 2024-09 00:00: 00 Yes [id number] 1 tablet 2 TIMES DAILY 1 tablet 2 TIMES DAILY (route: oral) Med Classific ation: Cardiovas cular Therapy Agents ferrous sulfate 325 mg (65 mg iron) tablet 2024-09 00:00: 00 Yes [id number] 1 tablet DAILY 1 tablet DAILY (route: oral) Med Classific ation: Electroly te Balance-N utritiona l Products furosemide 20 mg tablet 2024-09 00:00: 00 Yes [id number] 1 tablet EVERY OTHER DAY 1 tablet EVERY OTHER DAY (route: oral) Med Classific ation: Cardiovas cular Therapy Agents Jardiance 10 mg tablet 2024-09 00:00: 00 Yes [id number] 1 tablet DAILY 1 tablet DAILY (route: oral) Med Classific ation: Endocrine sertraline 25 mg tablet 2024-09 00:00: 00 Yes [id number] 1 tablet DAILY 1 tablet DAILY (route: oral) Med Classific ation: Central Nervous System Agents spironolact one 25 mg tablet 2024-09 00:00: 00 Yes [id number] 1 tablet DAILY 1 tablet DAILY (route: oral) Med Classific ation: Cardiovas cular Therapy Agents Wound Cleanser irrigation spray 2024-09 00:00: 00 08-04 00:00 :00 No [id number] Per instruc tions DIRECTED Per instructio ns DIRECTED (route: irrigation ) Med Classific ation: Dermatolo gical Pharmacy Compounded Medication 2024-09 00:00: 00 08-04 00:00 :00 No [id number] Per instruc tions DIRECTED Per instructio ns DIRECTED (route: Per Instructio ns) Med Classific ation: Custom acetaminoph en 325 mg capsule 2024-09 00:00: 00 Yes [id number] 2 capsule EVERY 4 HOURS 2 capsule EVERY 4 HOURS (route: oral) Med Classific ation: Analgesic , Anti-infl ammatory or Antipyret ic amiodarone 200 mg tablet 2024-09 00:00: 00 Yes [id number] 1 tablet 2 TIMES DAILY 1 tablet 2 TIMES DAILY (route: oral) Med Classific ation: Cardiovas cular Therapy Agents carvedilol 6.25 mg tablet 2024-09 00:00: 00 Yes [id number] 1 tablet 2 TIMES DAILY 1 tablet [...] MAINTAIN SITUATIONAL AWARENESS AND WILL NOTIFY CLINICAL AUTOMOBILE BODY REPAIRER AND PHYSICIAN/PROVIDER WITH ANY CHANGE IN CONDITION. [code = SKILLED NURSE TO PERFORM ENVIRONMENTAL SAFETY RISK ASSESSMENT AND FALL RISK ASSESSMENT AND PROVIDE INSTRUCTION TO IMPLEMENT ENVIRONMENTAL SAFETY AND FALL PREVENTION STRATEGIES THROUGHOUT THE CERTIFICATION PERIOD. SKILLED NURSE WILL MAINTAIN SITUATIONAL AWARENESS AND WILL NOTIFY CLINICAL AUTOMOBILE BODY REPAIRER AND PHYSICIAN/PROVIDER WITH ANY CHANGE IN CONDITION.] [...] Outpatient ASHLEY EVERETT [facility] [id number] 17.1 4
--- OUTSIDE RECORDS SUMMARY | 2025-10-01 18:00 | XMS_ITS | Clinical Summary ---
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 (CURRENT) USE OF ASPIRIN Active 09-24 00:00: 00 ENGINE OILER (CURRENT) USE OF ANTICOAGULAN TS Active 09-24 [...] 81 mg tablet 2024-09 00:00: 00 Yes [id number] 1 tablet DAILY 1 tablet DAILY (route: oral) Med Classific ation: Hematolog ical Agents atorvastati n 10 mg tablet 2024-09 00:00: 00 Yes [id number] 1 tablet DAILY 1 tablet DAILY (route: oral) Med Classific ation: Cardiovas cular Therapy Agents carvedilol 3.125 mg tablet 2024-09 00:00: 00 08-04 00:00 :00 No [id number] 1 tablet 2 TIMES DAILY 1 tablet 2 TIMES DAILY (route: oral) Med Classific ation: Cardiovas cular Therapy Agents Eliquis 5 mg tablet 2024-09 00:00: 00 Yes [id number] 1 tablet 2 TIMES DAILY 1 tablet 2 TIMES DAILY (route: oral) Med Classific ation: Hematolog ical Agents Entresto 24 mg-26 mg tablet 2024-09 00:00: 00 Yes [id number] 1 tablet 2 TIMES DAILY 1 tablet 2 TIMES DAILY (route: oral) Med Classific ation: Cardiovas cular Therapy Agents ferrous sulfate 325 mg (65 mg iron) tablet 2024-09 00:00: 00 Yes [id number] 1 tablet DAILY 1 tablet DAILY (route: oral) Med Classific ation: Electroly te Balance-N utritiona l Products furosemide 20 mg tablet 2024-09 00:00: 00 Yes [id number] 1 tablet EVERY OTHER DAY 1 tablet EVERY OTHER DAY (route: oral) Med Classific ation: Cardiovas cular Therapy Agents Jardiance 10 mg tablet 2024-09 00:00: 00 Yes [id number] 1 tablet DAILY 1 tablet DAILY (route: oral) Med Classific ation: Endocrine sertraline 25 mg tablet 2024-09 00:00: 00 Yes [id number] 1 tablet DAILY 1 tablet DAILY (route: oral) Med Classific ation: Central Nervous System Agents spironolact one 25 mg tablet 2024-09 00:00: 00 Yes [id number] 1 tablet DAILY 1 tablet DAILY (route: oral) Med Classific ation: Cardiovas cular Therapy Agents Wound Cleanser irrigation spray 2024-09 00:00: 00 08-04 00:00 :00 No [id number] Per instruc tions DIRECTED Per instructio ns DIRECTED (route: irrigation ) Med Classific ation: Dermatolo gical Pharmacy Compounded Medication 2024-09 00:00: 00 08-04 00:00 :00 No [id number] Per instruc tions DIRECTED Per instructio ns DIRECTED (route: Per Instructio ns) Med Classific ation: Custom acetaminoph en 325 mg capsule 2024-09 00:00: 00 Yes [id number] 2 capsule EVERY 4 HOURS 2 capsule EVERY 4 HOURS (route: oral) Med Classific ation: Analgesic , Anti-infl ammatory or Antipyret ic amiodarone 200 mg tablet 2024-09 00:00: 00 Yes [id number] 1 tablet 2 TIMES DAILY 1 tablet 2 TIMES DAILY (route: oral) Med Classific ation: Cardiovas cular Therapy Agents carvedilol 6.25 mg tablet 2024-09 00:00: 00 Yes [id number] 1 tablet 2 TIMES DAILY 1 tablet [...] MAINTAIN SITUATIONAL AWARENESS AND WILL NOTIFY CLINICAL ARCHITECTURAL DESIGN PROFESSOR AND PHYSICIAN/PROVIDER WITH ANY CHANGE IN CONDITION. [code = SKILLED NURSE TO PERFORM ENVIRONMENTAL SAFETY RISK ASSESSMENT AND FALL RISK ASSESSMENT AND PROVIDE INSTRUCTION TO IMPLEMENT ENVIRONMENTAL SAFETY AND FALL PREVENTION STRATEGIES THROUGHOUT THE CERTIFICATION PERIOD. SKILLED NURSE WILL MAINTAIN SITUATIONAL AWARENESS AND WILL NOTIFY CLINICAL ARCHITECTURAL DESIGN PROFESSOR AND PHYSICIAN/PROVIDER WITH ANY CHANGE IN CONDITION.] [...] End Date/Time Encounter Type Admission Type Attending [facility] Care Department Encounter ID Discharge Date Discharge Status Discharge Condition Discharge Reason Percent Goals Met 2025-08-04 00:00:00 2025-10-02 00:00:00 Outpatient ASHLEY EVERETT [facility] [id number] 17.1 4
--- OUTSIDE RECORDS SUMMARY | 2025-10-01 18:00 | XMS_ITS | Clinical Summary ---
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 DRUGS Active 09-24 00:00: 00 PULP PRESS TENDER (CURRENT) USE OF ASPIRIN Active 09-24 00:00: 00 PULP PRESS TENDER (CURRENT) USE OF ANTICOAGULAN TS Active 09-24 [...] 81 mg tablet 2024-09 00:00: 00 Yes [id number] 1 tablet DAILY 1 tablet DAILY (route: oral) Med Classific ation: Hematolog ical Agents atorvastati n 10 mg tablet 2024-09 00:00: 00 Yes [id number] 1 tablet DAILY 1 tablet DAILY (route: oral) Med Classific ation: Cardiovas cular Therapy Agents carvedilol 3.125 mg tablet 2024-09 00:00: 00 08-04 00:00 :00 No [id number] 1 tablet 2 TIMES DAILY 1 tablet 2 TIMES DAILY (route: oral) Med Classific ation: Cardiovas cular Therapy Agents Eliquis 5 mg tablet 2024-09 00:00: 00 Yes [id number] 1 tablet 2 TIMES DAILY 1 tablet 2 TIMES DAILY (route: oral) Med Classific ation: Hematolog ical Agents Entresto 24 mg-26 mg tablet 2024-09 00:00: 00 Yes [id number] 1 tablet 2 TIMES DAILY 1 tablet 2 TIMES DAILY (route: oral) Med Classific ation: Cardiovas cular Therapy Agents ferrous sulfate 325 mg (65 mg iron) tablet 2024-09 00:00: 00 Yes [id number] 1 tablet DAILY 1 tablet DAILY (route: oral) Med Classific ation: Electroly te Balance-N utritiona l Products furosemide 20 mg tablet 2024-09 00:00: 00 Yes [id number] 1 tablet EVERY OTHER DAY 1 tablet EVERY OTHER DAY (route: oral) Med Classific ation: Cardiovas cular Therapy Agents Jardiance 10 mg tablet 2024-09 00:00: 00 Yes [id number] 1 tablet DAILY 1 tablet DAILY (route: oral) Med Classific ation: Endocrine sertraline 25 mg tablet 2024-09 00:00: 00 Yes [id number] 1 tablet DAILY 1 tablet DAILY (route: oral) Med Classific ation: Central Nervous System Agents spironolact one 25 mg tablet 2024-09 00:00: 00 Yes [id number] 1 tablet DAILY 1 tablet DAILY (route: oral) Med Classific ation: Cardiovas cular Therapy Agents Wound Cleanser irrigation spray 2024-09 00:00: 00 08-04 00:00 :00 No [id number] Per instruc tions DIRECTED Per instructio ns DIRECTED (route: irrigation ) Med Classific ation: Dermatolo gical Pharmacy Compounded Medication 2024-09 00:00: 00 08-04 00:00 :00 No [id number] Per instruc tions DIRECTED Per instructio ns DIRECTED (route: Per Instructio ns) Med Classific ation: Custom acetaminoph en 325 mg capsule 2024-09 00:00: 00 Yes [id number] 2 capsule EVERY 4 HOURS 2 capsule EVERY 4 HOURS (route: oral) Med Classific ation: Analgesic , Anti-infl ammatory or Antipyret ic amiodarone 200 mg tablet 2024-09 00:00: 00 Yes [id number] 1 tablet 2 TIMES DAILY 1 tablet 2 TIMES DAILY (route: oral) Med Classific ation: Cardiovas cular Therapy Agents carvedilol 6.25 mg tablet 2024-09 00:00: 00 Yes [id number] 1 tablet 2 TIMES DAILY 1 tablet [...] MAINTAIN SITUATIONAL AWARENESS AND WILL NOTIFY CLINICAL ELECTRICIAN POWERHOUSE AND PHYSICIAN/PROVIDER WITH ANY CHANGE IN CONDITION. [code = SKILLED NURSE TO PERFORM ENVIRONMENTAL SAFETY RISK ASSESSMENT AND FALL RISK ASSESSMENT AND PROVIDE INSTRUCTION TO IMPLEMENT ENVIRONMENTAL SAFETY AND FALL PREVENTION STRATEGIES THROUGHOUT THE CERTIFICATION PERIOD. SKILLED NURSE WILL MAINTAIN SITUATIONAL AWARENESS AND WILL NOTIFY CLINICAL ELECTRICIAN POWERHOUSE AND PHYSICIAN/PROVIDER WITH ANY CHANGE IN CONDITION.] [...] End Date/Time Encounter Type Admission Type Attending [facility] Care Department Encounter ID Discharge Date Discharge Status Discharge Condition Discharge Reason Percent Goals Met 2025-08-04 00:00:00 2025-10-02 00:00:00 Outpatient ASHLEY EVERETT [facility] [id number] 17.1 4
--- OUTSIDE RECORDS SUMMARY | 2025-10-01 18:00 | XMS_ITS | Clinical Summary ---
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) USE OF ASPIRIN Active 09-24 00:00: 00 PACKAGING LINE OPERATOR (CURRENT) USE OF ANTICOAGULAN TS Active [...] 81 mg tablet 2024-09 00:00: 00 Yes [id number] 1 tablet DAILY 1 tablet DAILY (route: oral) Med Classific ation: Hematolog ical Agents atorvastati n 10 mg tablet 2024-09 00:00: 00 Yes [id number] 1 tablet DAILY 1 tablet DAILY (route: oral) Med Classific ation: Cardiovas cular Therapy Agents carvedilol 3.125 mg tablet 2024-09 00:00: 00 08-04 00:00 :00 No [id number] 1 tablet 2 TIMES DAILY 1 tablet 2 TIMES DAILY (route: oral) Med Classific ation: Cardiovas cular Therapy Agents Eliquis 5 mg tablet 2024-09 00:00: 00 Yes [id number] 1 tablet 2 TIMES DAILY 1 tablet 2 TIMES DAILY (route: oral) Med Classific ation: Hematolog ical Agents Entresto 24 mg-26 mg tablet 2024-09 00:00: 00 Yes [id number] 1 tablet 2 TIMES DAILY 1 tablet 2 TIMES DAILY (route: oral) Med Classific ation: Cardiovas cular Therapy Agents ferrous sulfate 325 mg (65 mg iron) tablet 2024-09 00:00: 00 Yes [id number] 1 tablet DAILY 1 tablet DAILY (route: oral) Med Classific ation: Electroly te Balance-N utritiona l Products furosemide 20 mg tablet 2024-09 00:00: 00 Yes [id number] 1 tablet EVERY OTHER DAY 1 tablet EVERY OTHER DAY (route: oral) Med Classific ation: Cardiovas cular Therapy Agents Jardiance 10 mg tablet 2024-09 00:00: 00 Yes [id number] 1 tablet DAILY 1 tablet DAILY (route: oral) Med Classific ation: Endocrine sertraline 25 mg tablet 2024-09 00:00: 00 Yes [id number] 1 tablet DAILY 1 tablet DAILY (route: oral) Med Classific ation: Central Nervous System Agents spironolact one 25 mg tablet 2024-09 00:00: 00 Yes [id number] 1 tablet DAILY 1 tablet DAILY (route: oral) Med Classific ation: Cardiovas cular Therapy Agents Wound Cleanser irrigation spray 2024-09 00:00: 00 08-04 00:00 :00 No [id number] Per instruc tions DIRECTED Per instructio ns DIRECTED (route: irrigation ) Med Classific ation: Dermatolo gical Pharmacy Compounded Medication 2024-09 00:00: 00 08-04 00:00 :00 No [id number] Per instruc tions DIRECTED Per instructio ns DIRECTED (route: Per Instructio ns) Med Classific ation: Custom acetaminoph en 325 mg capsule 2024-09 00:00: 00 Yes [id number] 2 capsule EVERY 4 HOURS 2 capsule EVERY 4 HOURS (route: oral) Med Classific ation: Analgesic , Anti-infl ammatory or Antipyret ic amiodarone 200 mg tablet 2024-09 00:00: 00 Yes [id number] 1 tablet 2 TIMES DAILY 1 tablet 2 TIMES DAILY (route: oral) Med Classific ation: Cardiovas cular Therapy Agents carvedilol 6.25 mg tablet 2024-09 00:00: 00 Yes [id number] 1 tablet 2 TIMES DAILY 1 tablet [...] MAINTAIN SITUATIONAL AWARENESS AND WILL NOTIFY CLINICAL ELEVATOR CONSTRUCTOR HELPER AND PHYSICIAN/PROVIDER WITH ANY CHANGE IN CONDITION. [code = SKILLED NURSE TO PERFORM ENVIRONMENTAL SAFETY RISK ASSESSMENT AND FALL RISK ASSESSMENT AND PROVIDE INSTRUCTION TO IMPLEMENT ENVIRONMENTAL SAFETY AND FALL PREVENTION STRATEGIES THROUGHOUT THE CERTIFICATION PERIOD. SKILLED NURSE WILL MAINTAIN SITUATIONAL AWARENESS AND WILL NOTIFY CLINICAL ELEVATOR CONSTRUCTOR HELPER AND PHYSICIAN/PROVIDER WITH ANY CHANGE IN [...] CARE WILL BE ESTABLISHED THAT MEETS PATIENT'S NURSING HOME NEEDS AND INCLUDES PATIENT GOAL FOR [...] NOTED. PATIENT'S CALENDAR WAS REVIEWED REGARDING NEXT NURSING HOME VISIT. PATIENT ADVISED TO CALL [facility] WITH ANY QUESTIONS CONCERNS OR CHANGES IN HEALTH STATUS</paragraph> Encounters Start Date/Time End Date/Time Encounter Type Admission Type Attending [facility] Care Department Encounter ID Discharge Date Discharge Status Discharge Condition Discharge Reason Percent Goals Met 2025-08-04 00:00:00 2025-10-02 00:00:00 Outpatient ASHLEY EVERETT [facility] [id number] 17.1 4
--- OUTSIDE RECORDS SUMMARY | 2025-10-01 18:00 | XMS_ITS | Clinical Summary ---
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 OF ASPIRIN Active 09-24 00:00: 00 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 (CURRENT) USE OF ANTICOAGULAN TS Active 09-24 [...] 81 mg tablet 2024-09 00:00: 00 Yes [id number] 1 tablet DAILY 1 tablet DAILY (route: oral) Med Classific ation: Hematolog ical Agents atorvastati n 10 mg tablet 2024-09 00:00: 00 Yes [id number] 1 tablet DAILY 1 tablet DAILY (route: oral) Med Classific ation: Cardiovas cular Therapy Agents carvedilol 3.125 mg tablet 2024-09 00:00: 00 08-04 00:00 :00 No [id number] 1 tablet 2 TIMES DAILY 1 tablet 2 TIMES DAILY (route: oral) Med Classific ation: Cardiovas cular Therapy Agents Eliquis 5 mg tablet 2024-09 00:00: 00 Yes [id number] 1 tablet 2 TIMES DAILY 1 tablet 2 TIMES DAILY (route: oral) Med Classific ation: Hematolog ical Agents Entresto 24 mg-26 mg tablet 2024-09 00:00: 00 Yes [id number] 1 tablet 2 TIMES DAILY 1 tablet 2 TIMES DAILY (route: oral) Med Classific ation: Cardiovas cular Therapy Agents ferrous sulfate 325 mg (65 mg iron) tablet 2024-09 00:00: 00 Yes [id number] 1 tablet DAILY 1 tablet DAILY (route: oral) Med Classific ation: Electroly te Balance-N utritiona l Products furosemide 20 mg tablet 2024-09 00:00: 00 Yes [id number] 1 tablet EVERY OTHER DAY 1 tablet EVERY OTHER DAY (route: oral) Med Classific ation: Cardiovas cular Therapy Agents Jardiance 10 mg tablet 2024-09 00:00: 00 Yes [id number] 1 tablet DAILY 1 tablet DAILY (route: oral) Med Classific ation: Endocrine sertraline 25 mg tablet 2024-09 00:00: 00 Yes [id number] 1 tablet DAILY 1 tablet DAILY (route: oral) Med Classific ation: Central Nervous System Agents spironolact one 25 mg tablet 2024-09 00:00: 00 Yes [id number] 1 tablet DAILY 1 tablet DAILY (route: oral) Med Classific ation: Cardiovas cular Therapy Agents Wound Cleanser irrigation spray 2024-09 00:00: 00 08-04 00:00 :00 No [id number] Per instruc tions DIRECTED Per instructio ns DIRECTED (route: irrigation ) Med Classific ation: Dermatolo gical Pharmacy Compounded Medication 2024-09 00:00: 00 08-04 00:00 :00 No [id number] Per instruc tions DIRECTED Per instructio ns DIRECTED (route: Per Instructio ns) Med Classific ation: Custom acetaminoph en 325 mg capsule 2024-09 00:00: 00 Yes [id number] 2 capsule EVERY 4 HOURS 2 capsule EVERY 4 HOURS (route: oral) Med Classific ation: Analgesic , Anti-infl ammatory or Antipyret ic amiodarone 200 mg tablet 2024-09 00:00: 00 Yes [id number] 1 tablet 2 TIMES DAILY 1 tablet 2 TIMES DAILY (route: oral) Med Classific ation: Cardiovas cular Therapy Agents carvedilol 6.25 mg tablet 2024-09 00:00: 00 Yes [id number] 1 tablet 2 TIMES DAILY 1 tablet [...] MAINTAIN SITUATIONAL AWARENESS AND WILL NOTIFY CLINICAL HAND DEVELOPER AND PHYSICIAN/PROVIDER WITH ANY CHANGE IN CONDITION. [code = SKILLED NURSE TO PERFORM ENVIRONMENTAL SAFETY RISK ASSESSMENT AND FALL RISK ASSESSMENT AND PROVIDE INSTRUCTION TO IMPLEMENT ENVIRONMENTAL SAFETY AND FALL PREVENTION STRATEGIES THROUGHOUT THE CERTIFICATION PERIOD. SKILLED NURSE WILL MAINTAIN SITUATIONAL AWARENESS AND WILL NOTIFY CLINICAL HAND DEVELOPER AND PHYSICIAN/PROVIDER WITH ANY CHANGE IN CONDITION.] [...] CARE WILL BE ESTABLISHED THAT MEETS PATIENT'S JAIL NEEDS AND INCLUDES PATIENT GOAL FOR HOME [...] NOTED. PATIENT'S CALENDAR WAS REVIEWED REGARDING NEXT JAIL VISIT. PATIENT ADVISED TO CALL [facility] WITH ANY QUESTIONS CONCERNS OR CHANGES IN HEALTH STATUS</paragraph> Encounters Start Date/Time End Date/Time Encounter Type Admission Type Attending [facility] Care Department Encounter ID Discharge Date Discharge Status Discharge Condition Discharge Reason Percent Goals Met 2025-08-04 00:00:00 2025-10-02 00:00:00 Outpatient ASHLEY EVERETT [facility] [id number] 17.1 4
--- OUTSIDE RECORDS SUMMARY | 2025-10-01 18:00 | XMS_ITS | Clinical Summary ---
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) USE OF ANTICOAGULAN TS Active [...] 81 mg tablet 2024-09 00:00: 00 Yes [id number] 1 tablet DAILY 1 tablet DAILY (route: oral) Med Classific ation: Hematolog ical Agents atorvastati n 10 mg tablet 2024-09 00:00: 00 Yes [id number] 1 tablet DAILY 1 tablet DAILY (route: oral) Med Classific ation: Cardiovas cular Therapy Agents carvedilol 3.125 mg tablet 2024-09 00:00: 00 08-04 00:00 :00 No [id number] 1 tablet 2 TIMES DAILY 1 tablet 2 TIMES DAILY (route: oral) Med Classific ation: Cardiovas cular Therapy Agents Eliquis 5 mg tablet 2024-09 00:00: 00 Yes [id number] 1 tablet 2 TIMES DAILY 1 tablet 2 TIMES DAILY (route: oral) Med Classific ation: Hematolog ical Agents Entresto 24 mg-26 mg tablet 2024-09 00:00: 00 Yes [id number] 1 tablet 2 TIMES DAILY 1 tablet 2 TIMES DAILY (route: oral) Med Classific ation: Cardiovas cular Therapy Agents ferrous sulfate 325 mg (65 mg iron) tablet 2024-09 00:00: 00 Yes [id number] 1 tablet DAILY 1 tablet DAILY (route: oral) Med Classific ation: Electroly te Balance-N utritiona l Products furosemide 20 mg tablet 2024-09 00:00: 00 Yes [id number] 1 tablet EVERY OTHER DAY 1 tablet EVERY OTHER DAY (route: oral) Med Classific ation: Cardiovas cular Therapy Agents Jardiance 10 mg tablet 2024-09 00:00: 00 Yes [id number] 1 tablet DAILY 1 tablet DAILY (route: oral) Med Classific ation: Endocrine sertraline 25 mg tablet 2024-09 00:00: 00 Yes [id number] 1 tablet DAILY 1 tablet DAILY (route: oral) Med Classific ation: Central Nervous System Agents spironolact one 25 mg tablet 2024-09 00:00: 00 Yes [id number] 1 tablet DAILY 1 tablet DAILY (route: oral) Med Classific ation: Cardiovas cular Therapy Agents Wound Cleanser irrigation spray 2024-09 00:00: 00 08-04 00:00 :00 No [id number] Per instruc tions DIRECTED Per instructio ns DIRECTED (route: irrigation ) Med Classific ation: Dermatolo gical Pharmacy Compounded Medication 2024-09 00:00: 00 08-04 00:00 :00 No [id number] Per instruc tions DIRECTED Per instructio ns DIRECTED (route: Per Instructio ns) Med Classific ation: Custom acetaminoph en 325 mg capsule 2024-09 00:00: 00 Yes [id number] 2 capsule EVERY 4 HOURS 2 capsule EVERY 4 HOURS (route: oral) Med Classific ation: Analgesic , Anti-infl ammatory or Antipyret ic amiodarone 200 mg tablet 2024-09 00:00: 00 Yes [id number] 1 tablet 2 TIMES DAILY 1 tablet 2 TIMES DAILY (route: oral) Med Classific ation: Cardiovas cular Therapy Agents carvedilol 6.25 mg tablet 2024-09 00:00: 00 Yes [id number] 1 tablet 2 TIMES DAILY 1 tablet [...] THE FOLLOWING PHYSICIANS: DR LAWRENCE WAITE DR EJSSIKA VINES, ON-CALL/ TREATING PROVIDERS. [code = HOME [...] MAINTAIN SITUATIONAL AWARENESS AND WILL NOTIFY CLINICAL COLLEGE SPORTS COACH AND PHYSICIAN/PROVIDER WITH ANY CHANGE IN CONDITION. [code = SKILLED NURSE TO PERFORM ENVIRONMENTAL SAFETY RISK ASSESSMENT AND FALL RISK ASSESSMENT AND PROVIDE INSTRUCTION TO IMPLEMENT ENVIRONMENTAL SAFETY AND FALL PREVENTION STRATEGIES THROUGHOUT THE CERTIFICATION PERIOD. SKILLED NURSE WILL MAINTAIN SITUATIONAL AWARENESS AND WILL NOTIFY CLINICAL COLLEGE SPORTS COACH AND PHYSICIAN/PROVIDER WITH ANY CHANGE IN CONDITION.] [...] End Date/Time Encounter Type Admission Type Attending [facility] Care Department Encounter ID Discharge Date Discharge Status Discharge Condition Discharge Reason Percent Goals Met 2025-08-04 00:00:00 2025-10-02 00:00:00 Outpatient ASHLEY EVERETT [facility] [id number] 17.1 4
--- OUTSIDE RECORDS SUMMARY | 2025-10-01 18:00 | XMS_ITS | Clinical Summary ---
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 Active 09-24 00:00: 00 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 TS Active 09-24 [...] 81 mg tablet 2024-09 00:00: 00 Yes [id number] 1 tablet DAILY 1 tablet DAILY (route: oral) Med Classific ation: Hematolog ical Agents atorvastati n 10 mg tablet 2024-09 00:00: 00 Yes [id number] 1 tablet DAILY 1 tablet DAILY (route: oral) Med Classific ation: Cardiovas cular Therapy Agents carvedilol 3.125 mg tablet 2024-09 00:00: 00 08-04 00:00 :00 No [id number] 1 tablet 2 TIMES DAILY 1 tablet 2 TIMES DAILY (route: oral) Med Classific ation: Cardiovas cular Therapy Agents Eliquis 5 mg tablet 2024-09 00:00: 00 Yes [id number] 1 tablet 2 TIMES DAILY 1 tablet 2 TIMES DAILY (route: oral) Med Classific ation: Hematolog ical Agents Entresto 24 mg-26 mg tablet 2024-09 00:00: 00 Yes [id number] 1 tablet 2 TIMES DAILY 1 tablet 2 TIMES DAILY (route: oral) Med Classific ation: Cardiovas cular Therapy Agents ferrous sulfate 325 mg (65 mg iron) tablet 2024-09 00:00: 00 Yes [id number] 1 tablet DAILY 1 tablet DAILY (route: oral) Med Classific ation: Electroly te Balance-N utritiona l Products furosemide 20 mg tablet 2024-09 00:00: 00 Yes [id number] 1 tablet EVERY OTHER DAY 1 tablet EVERY OTHER DAY (route: oral) Med Classific ation: Cardiovas cular Therapy Agents Jardiance 10 mg tablet 2024-09 00:00: 00 Yes [id number] 1 tablet DAILY 1 tablet DAILY (route: oral) Med Classific ation: Endocrine sertraline 25 mg tablet 2024-09 00:00: 00 Yes [id number] 1 tablet DAILY 1 tablet DAILY (route: oral) Med Classific ation: Central Nervous System Agents spironolact one 25 mg tablet 2024-09 00:00: 00 Yes [id number] 1 tablet DAILY 1 tablet DAILY (route: oral) Med Classific ation: Cardiovas cular Therapy Agents Wound Cleanser irrigation spray 2024-09 00:00: 00 08-04 00:00 :00 No [id number] Per instruc tions DIRECTED Per instructio ns DIRECTED (route: irrigation ) Med Classific ation: Dermatolo gical Pharmacy Compounded Medication 2024-09 00:00: 00 08-04 00:00 :00 No [id number] Per instruc tions DIRECTED Per instructio ns DIRECTED (route: Per Instructio ns) Med Classific ation: Custom acetaminoph en 325 mg capsule 2024-09 00:00: 00 Yes [id number] 2 capsule EVERY 4 HOURS 2 capsule EVERY 4 HOURS (route: oral) Med Classific ation: Analgesic , Anti-infl ammatory or Antipyret ic amiodarone 200 mg tablet 2024-09 00:00: 00 Yes [id number] 1 tablet 2 TIMES DAILY 1 tablet 2 TIMES DAILY (route: oral) Med Classific ation: Cardiovas cular Therapy Agents carvedilol 6.25 mg tablet 2024-09 00:00: 00 Yes [id number] 1 tablet 2 TIMES DAILY 1 tablet [...] ORDERS FROM THE FOLLOWING PHYSICIANS: DR LAWRENCE AWITE DR JESSIKA VINES, ON-CALL/ TREATING PROVIDERS. [code [...] MAINTAIN SITUATIONAL AWARENESS AND WILL NOTIFY CLINICAL LAB SYSTEMS ANALYST AND PHYSICIAN/PROVIDER WITH ANY CHANGE IN CONDITION. [code = SKILLED NURSE TO PERFORM ENVIRONMENTAL SAFETY RISK ASSESSMENT AND FALL RISK ASSESSMENT AND PROVIDE INSTRUCTION TO IMPLEMENT ENVIRONMENTAL SAFETY AND FALL PREVENTION STRATEGIES THROUGHOUT THE CERTIFICATION PERIOD. SKILLED NURSE WILL MAINTAIN SITUATIONAL AWARENESS AND WILL NOTIFY CLINICAL LAB SYSTEMS ANALYST AND PHYSICIAN/PROVIDER WITH ANY CHANGE IN [...] End Date/Time Encounter Type Admission Type Attending [facility] Care Department Encounter ID Discharge Date Discharge Status Discharge Condition Discharge Reason Percent Goals Met 2025-08-04 00:00:00 2025-10-02 00:00:00 Outpatient ASHLEY EVERETT [facility] [id number] 17.1 4
--- OUTSIDE RECORDS SUMMARY | 2025-10-01 18:00 | XMS_ITS | Clinical Summary ---
Author Organization Unknown Care Team Providers Care Demi Chef Name Role Phone OSMIN BURNETT, RAJENDRA Unavailable Unavailable NAYLA RNASHLEY Unavailable Unavailable Payers Payer Name Policy Type Policy Number Effective Date Expira tion Date MEDICARE - [place] - [facility] [id number] Problems Condition Name Condition Details Condition Category [...] OF DIGESTIVE TRACT Active 09-24 00:00: 00 ORAL SURGERY ASSISTANT (CURRENT) USE OF ORAL HYPOGLYCEMIC DRUGS Active 09-24 00:00: 00 ORAL SURGERY ASSISTANT (CURRENT) USE OF ASPIRIN Active 09-24 00:00: 00 ORAL SURGERY ASSISTANT (CURRENT) USE OF ANTICOAGULAN TS Active 09-24 [...] 81 mg tablet 2024-09 00:00: 00 Yes [id number] 1 tablet DAILY 1 tablet DAILY (route: oral) Med Classific ation: Hematolog ical Agents atorvastati n 10 mg tablet 2024-09 00:00: 00 Yes [id number] 1 tablet DAILY 1 tablet DAILY (route: oral) Med Classific ation: Cardiovas cular Therapy Agents carvedilol 3.125 mg tablet 2024-09 00:00: 00 08-04 00:00 :00 No [id number] 1 tablet 2 TIMES DAILY 1 tablet 2 TIMES DAILY (route: oral) Med Classific ation: Cardiovas cular Therapy Agents Eliquis 5 mg tablet 2024-09 00:00: 00 Yes [id number] 1 tablet 2 TIMES DAILY 1 tablet 2 TIMES DAILY (route: oral) Med Classific ation: Hematolog ical Agents Entresto 24 mg-26 mg tablet 2024-09 00:00: 00 Yes [id number] 1 tablet 2 TIMES DAILY 1 tablet 2 TIMES DAILY (route: oral) Med Classific ation: Cardiovas cular Therapy Agents ferrous sulfate 325 mg (65 mg iron) tablet 2024-09 00:00: 00 Yes [id number] 1 tablet DAILY 1 tablet DAILY (route: oral) Med Classific ation: Electroly te Balance-N utritiona l Products furosemide 20 mg tablet 2024-09 00:00: 00 Yes [id number] 1 tablet EVERY OTHER DAY 1 tablet EVERY OTHER DAY (route: oral) Med Classific ation: Cardiovas cular Therapy Agents Jardiance 10 mg tablet 2024-09 00:00: 00 Yes [id number] 1 tablet DAILY 1 tablet DAILY (route: oral) Med Classific ation: Endocrine sertraline 25 mg tablet 2024-09 00:00: 00 Yes [id number] 1 tablet DAILY 1 tablet DAILY (route: oral) Med Classific ation: Central Nervous System Agents spironolact one 25 mg tablet 2024-09 00:00: 00 Yes [id number] 1 tablet DAILY 1 tablet DAILY (route: oral) Med Classific ation: Cardiovas cular Therapy Agents Wound Cleanser irrigation spray 2024-09 00:00: 00 08-04 00:00 :00 No [id number] Per instruc tions DIRECTED Per instructio ns DIRECTED (route: irrigation ) Med Classific ation: Dermatolo gical Pharmacy Compounded Medication 2024-09 00:00: 00 08-04 00:00 :00 No [id number] Per instruc tions DIRECTED Per instructio ns DIRECTED (route: Per Instructio ns) Med Classific ation: Custom acetaminoph en 325 mg capsule 2024-09 00:00: 00 Yes [id number] 2 capsule EVERY 4 HOURS 2 capsule EVERY 4 HOURS (route: oral) Med Classific ation: Analgesic , Anti-infl ammatory or Antipyret ic amiodarone 200 mg tablet 2024-09 00:00: 00 Yes [id number] 1 tablet 2 TIMES DAILY 1 tablet 2 TIMES DAILY (route: oral) Med Classific ation: Cardiovas cular Therapy Agents carvedilol 6.25 mg tablet 2024-09 00:00: 00 Yes [id number] 1 tablet 2 TIMES DAILY 1 tablet [...] MAINTAIN SITUATIONAL AWARENESS AND WILL NOTIFY CLINICAL SALES PROFESSIONAL AND PHYSICIAN/PROVIDER WITH ANY CHANGE IN CONDITION. [code = SKILLED NURSE TO PERFORM ENVIRONMENTAL SAFETY RISK ASSESSMENT AND FALL RISK ASSESSMENT AND PROVIDE INSTRUCTION TO IMPLEMENT ENVIRONMENTAL SAFETY AND FALL PREVENTION STRATEGIES THROUGHOUT THE CERTIFICATION PERIOD. SKILLED NURSE WILL MAINTAIN SITUATIONAL AWARENESS AND WILL NOTIFY CLINICAL SALES PROFESSIONAL AND PHYSICIAN/PROVIDER WITH ANY CHANGE IN CONDITION.] [...] CARE WILL BE ESTABLISHED THAT MEETS PATIENT'S LONGTERM NEEDS AND INCLUDES PATIENT GOAL FOR HOME [...] NOTED. PATIENT'S CALENDAR WAS REVIEWED REGARDING NEXT LONGTERM VISIT. PATIENT ADVISED TO CALL [facility] WITH ANY QUESTIONS CONCERNS OR CHANGES IN HEALTH STATUS</paragraph> Encounters Start Date/Time End Date/Time Encounter Type Admission Type Attending [facility] Care Department Encounter ID Discharge Date Discharge Status Discharge Condition Discharge Reason Percent Goals Met 2025-08-04 00:00:00 2025-10-02 00:00:00 Outpatient ASHLEY EVERETT [facility] [id number] 17.1 4
--- OUTSIDE RECORDS SUMMARY | 2025-10-01 18:00 | XMS_ITS | Clinical Summary ---
Author Organization Unknown Care Team Providers Care Developing Machine Operator Name Role Phone OSMIN BURNETT, RAJENDRA Unavailable Unavailable NAYLA RNASHLEY Unavailable Unavailable Payers Payer Name Policy Type Policy Number Effective Date Expira tion Date MEDICARE - [place] - [facility] [id number] Problems Condition Name Condition Details Condition Category [...] OF DIGESTIVE TRACT Active 09-24 00:00: 00 BRICK AND TILE MAKING MACHINE OPERATOR (CURRENT) USE OF ORAL HYPOGLYCEMIC DRUGS Active 09-24 00:00: 00 BRICK AND TILE MAKING MACHINE OPERATOR (CURRENT) USE OF ASPIRIN Active 09-24 00:00: 00 BRICK AND TILE MAKING MACHINE OPERATOR (CURRENT) USE OF ANTICOAGULAN TS [...] 81 mg tablet 2024-09 00:00: 00 Yes [id number] 1 tablet DAILY 1 tablet DAILY (route: oral) Med Classific ation: Hematolog ical Agents atorvastati n 10 mg tablet 2024-09 00:00: 00 Yes [id number] 1 tablet DAILY 1 tablet DAILY (route: oral) Med Classific ation: Cardiovas cular Therapy Agents carvedilol 3.125 mg tablet 2024-09 00:00: 00 08-04 00:00 :00 No [id number] 1 tablet 2 TIMES DAILY 1 tablet 2 TIMES DAILY (route: oral) Med Classific ation: Cardiovas cular Therapy Agents Eliquis 5 mg tablet 2024-09 00:00: 00 Yes [id number] 1 tablet 2 TIMES DAILY 1 tablet 2 TIMES DAILY (route: oral) Med Classific ation: Hematolog ical Agents Entresto 24 mg-26 mg tablet 2024-09 00:00: 00 Yes [id number] 1 tablet 2 TIMES DAILY 1 tablet 2 TIMES DAILY (route: oral) Med Classific ation: Cardiovas cular Therapy Agents ferrous sulfate 325 mg (65 mg iron) tablet 2024-09 00:00: 00 Yes [id number] 1 tablet DAILY 1 tablet DAILY (route: oral) Med Classific ation: Electroly te Balance-N utritiona l Products furosemide 20 mg tablet 2024-09 00:00: 00 Yes [id number] 1 tablet EVERY OTHER DAY 1 tablet EVERY OTHER DAY (route: oral) Med Classific ation: Cardiovas cular Therapy Agents Jardiance 10 mg tablet 2024-09 00:00: 00 Yes [id number] 1 tablet DAILY 1 tablet DAILY (route: oral) Med Classific ation: Endocrine sertraline 25 mg tablet 2024-09 00:00: 00 Yes [id number] 1 tablet DAILY 1 tablet DAILY (route: oral) Med Classific ation: Central Nervous System Agents spironolact one 25 mg tablet 2024-09 00:00: 00 Yes [id number] 1 tablet DAILY 1 tablet DAILY (route: oral) Med Classific ation: Cardiovas cular Therapy Agents Wound Cleanser irrigation spray 2024-09 00:00: 00 08-04 00:00 :00 No [id number] Per instruc tions DIRECTED Per instructio ns DIRECTED (route: irrigation ) Med Classific ation: Dermatolo gical Pharmacy Compounded Medication 2024-09 00:00: 00 08-04 00:00 :00 No [id number] Per instruc tions DIRECTED Per instructio ns DIRECTED (route: Per Instructio ns) Med Classific ation: Custom acetaminoph en 325 mg capsule 2024-09 00:00: 00 Yes [id number] 2 capsule EVERY 4 HOURS 2 capsule EVERY 4 HOURS (route: oral) Med Classific ation: Analgesic , Anti-infl ammatory or Antipyret ic amiodarone 200 mg tablet 2024-09 00:00: 00 Yes [id number] 1 tablet 2 TIMES DAILY 1 tablet 2 TIMES DAILY (route: oral) Med Classific ation: Cardiovas cular Therapy Agents carvedilol 6.25 mg tablet 2024-09 00:00: 00 Yes [id number] 1 tablet 2 TIMES DAILY 1 tablet [...] MAINTAIN SITUATIONAL AWARENESS AND WILL NOTIFY CLINICAL MINK FARMER AND PHYSICIAN/PROVIDER WITH ANY CHANGE IN CONDITION. [code = SKILLED NURSE TO PERFORM ENVIRONMENTAL SAFETY RISK ASSESSMENT AND FALL RISK ASSESSMENT AND PROVIDE INSTRUCTION TO IMPLEMENT ENVIRONMENTAL SAFETY AND FALL PREVENTION STRATEGIES THROUGHOUT THE CERTIFICATION PERIOD. SKILLED NURSE WILL MAINTAIN SITUATIONAL AWARENESS AND WILL NOTIFY CLINICAL MINK FARMER AND PHYSICIAN/PROVIDER WITH ANY CHANGE IN CONDITION.] [...] End Date/Time Encounter Type Admission Type Attending [facility] Care Department Encounter ID Discharge Date Discharge Status Discharge Condition Discharge Reason Percent Goals Met 2025-08-04 00:00:00 2025-10-02 00:00:00 Outpatient ASHLEY EVERETT [facility] [id number] 17.1 4
--- OUTSIDE RECORDS SUMMARY | 2025-10-01 18:00 | XMS_ITS | Clinical Summary ---
Author Organization Unknown Care Team Providers Care X Ray Equipment Tester Name Role Phone OSMIN BURNETT, RAJENDRA Unavailable Unavailable NAYLA RNASHLEY Unavailable Unavailable Payers Payer Name Policy Type Policy Number Effective Date Expira tion Date MEDICARE - [place] - [facility] [id number] Problems Condition Name Condition Details Condition Category [...] OF DIGESTIVE TRACT Active 09-24 00:00: 00 CLIENT SUPPORT MANAGER (CURRENT) USE OF ORAL HYPOGLYCEMIC DRUGS Active 09-24 00:00: 00 CLIENT SUPPORT MANAGER (CURRENT) USE OF ASPIRIN Active 09-24 00:00: 00 CLIENT SUPPORT MANAGER (CURRENT) USE OF ANTICOAGULAN TS Active [...] 81 mg tablet 2024-09 00:00: 00 Yes [id number] 1 tablet DAILY 1 tablet DAILY (route: oral) Med Classific ation: Hematolog ical Agents atorvastati n 10 mg tablet 2024-09 00:00: 00 Yes [id number] 1 tablet DAILY 1 tablet DAILY (route: oral) Med Classific ation: Cardiovas cular Therapy Agents carvedilol 3.125 mg tablet 2024-09 00:00: 00 08-04 00:00 :00 No [id number] 1 tablet 2 TIMES DAILY 1 tablet 2 TIMES DAILY (route: oral) Med Classific ation: Cardiovas cular Therapy Agents Eliquis 5 mg tablet 2024-09 00:00: 00 Yes [id number] 1 tablet 2 TIMES DAILY 1 tablet 2 TIMES DAILY (route: oral) Med Classific ation: Hematolog ical Agents Entresto 24 mg-26 mg tablet 2024-09 00:00: 00 Yes [id number] 1 tablet 2 TIMES DAILY 1 tablet 2 TIMES DAILY (route: oral) Med Classific ation: Cardiovas cular Therapy Agents ferrous sulfate 325 mg (65 mg iron) tablet 2024-09 00:00: 00 Yes [id number] 1 tablet DAILY 1 tablet DAILY (route: oral) Med Classific ation: Electroly te Balance-N utritiona l Products furosemide 20 mg tablet 2024-09 00:00: 00 Yes [id number] 1 tablet EVERY OTHER DAY 1 tablet EVERY OTHER DAY (route: oral) Med Classific ation: Cardiovas cular Therapy Agents Jardiance 10 mg tablet 2024-09 00:00: 00 Yes [id number] 1 tablet DAILY 1 tablet DAILY (route: oral) Med Classific ation: Endocrine sertraline 25 mg tablet 2024-09 00:00: 00 Yes [id number] 1 tablet DAILY 1 tablet DAILY (route: oral) Med Classific ation: Central Nervous System Agents spironolact one 25 mg tablet 2024-09 00:00: 00 Yes [id number] 1 tablet DAILY 1 tablet DAILY (route: oral) Med Classific ation: Cardiovas cular Therapy Agents Wound Cleanser irrigation spray 2024-09 00:00: 00 08-04 00:00 :00 No [id number] Per instruc tions DIRECTED Per instructio ns DIRECTED (route: irrigation ) Med Classific ation: Dermatolo gical Pharmacy Compounded Medication 2024-09 00:00: 00 08-04 00:00 :00 No [id number] Per instruc tions DIRECTED Per instructio ns DIRECTED (route: Per Instructio ns) Med Classific ation: Custom acetaminoph en 325 mg capsule 2024-09 00:00: 00 Yes [id number] 2 capsule EVERY 4 HOURS 2 capsule EVERY 4 HOURS (route: oral) Med Classific ation: Analgesic , Anti-infl ammatory or Antipyret ic amiodarone 200 mg tablet 2024-09 00:00: 00 Yes [id number] 1 tablet 2 TIMES DAILY 1 tablet 2 TIMES DAILY (route: oral) Med Classific ation: Cardiovas cular Therapy Agents carvedilol 6.25 mg tablet 2024-09 00:00: 00 Yes [id number] 1 tablet 2 TIMES DAILY 1 tablet [...] MAINTAIN SITUATIONAL AWARENESS AND WILL NOTIFY CLINICAL APPAREL PATTERNMAKER AND PHYSICIAN/PROVIDER WITH ANY CHANGE IN CONDITION. [code = SKILLED NURSE TO PERFORM ENVIRONMENTAL SAFETY RISK ASSESSMENT AND FALL RISK ASSESSMENT AND PROVIDE INSTRUCTION TO IMPLEMENT ENVIRONMENTAL SAFETY AND FALL PREVENTION STRATEGIES THROUGHOUT THE CERTIFICATION PERIOD. SKILLED NURSE WILL MAINTAIN SITUATIONAL AWARENESS AND WILL NOTIFY CLINICAL APPAREL PATTERNMAKER AND PHYSICIAN/PROVIDER WITH ANY CHANGE IN CONDITION.] [...] 2025-10-02 00:00:00 Outpatient ASHLEY EVERETT [facility] [id number] 17.1 4
--- OUTSIDE RECORDS SUMMARY | 2025-10-01 18:00 | XMS_ITS | Clinical Summary ---
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 (CURRENT) USE OF ORAL HYPOGLYCEMIC DRUGS Active 09-24 00:00: 00 SCREEN PRINTING STENCIL PREPARER (CURRENT) USE OF ASPIRIN Active 09-24 00:00: 00 SCREEN PRINTING STENCIL PREPARER (CURRENT) USE OF ANTICOAGULAN TS Active 09-24 [...] 81 mg tablet 2024-09 00:00: 00 Yes [id number] 1 tablet DAILY 1 tablet DAILY (route: oral) Med Classific ation: Hematolog ical Agents atorvastati n 10 mg tablet 2024-09 00:00: 00 Yes [id number] 1 tablet DAILY 1 tablet DAILY (route: oral) Med Classific ation: Cardiovas cular Therapy Agents carvedilol 3.125 mg tablet 2024-09 00:00: 00 08-04 00:00 :00 No [id number] 1 tablet 2 TIMES DAILY 1 tablet 2 TIMES DAILY (route: oral) Med Classific ation: Cardiovas cular Therapy Agents Eliquis 5 mg tablet 2024-09 00:00: 00 Yes [id number] 1 tablet 2 TIMES DAILY 1 tablet 2 TIMES DAILY (route: oral) Med Classific ation: Hematolog ical Agents Entresto 24 mg-26 mg tablet 2024-09 00:00: 00 Yes [id number] 1 tablet 2 TIMES DAILY 1 tablet 2 TIMES DAILY (route: oral) Med Classific ation: Cardiovas cular Therapy Agents ferrous sulfate 325 mg (65 mg iron) tablet 2024-09 00:00: 00 Yes [id number] 1 tablet DAILY 1 tablet DAILY (route: oral) Med Classific ation: Electroly te Balance-N utritiona l Products furosemide 20 mg tablet 2024-09 00:00: 00 Yes [id number] 1 tablet EVERY OTHER DAY 1 tablet EVERY OTHER DAY (route: oral) Med Classific ation: Cardiovas cular Therapy Agents Jardiance 10 mg tablet 2024-09 00:00: 00 Yes [id number] 1 tablet DAILY 1 tablet DAILY (route: oral) Med Classific ation: Endocrine sertraline 25 mg tablet 2024-09 00:00: 00 Yes [id number] 1 tablet DAILY 1 tablet DAILY (route: oral) Med Classific ation: Central Nervous System Agents spironolact one 25 mg tablet 2024-09 00:00: 00 Yes [id number] 1 tablet DAILY 1 tablet DAILY (route: oral) Med Classific ation: Cardiovas cular Therapy Agents Wound Cleanser irrigation spray 2024-09 00:00: 00 08-04 00:00 :00 No [id number] Per instruc tions DIRECTED Per instructio ns DIRECTED (route: irrigation ) Med Classific ation: Dermatolo gical Pharmacy Compounded Medication 2024-09 00:00: 00 08-04 00:00 :00 No [id number] Per instruc tions DIRECTED Per instructio ns DIRECTED (route: Per Instructio ns) Med Classific ation: Custom acetaminoph en 325 mg capsule 2024-09 00:00: 00 Yes [id number] 2 capsule EVERY 4 HOURS 2 capsule EVERY 4 HOURS (route: oral) Med Classific ation: Analgesic , Anti-infl ammatory or Antipyret ic amiodarone 200 mg tablet 2024-09 00:00: 00 Yes [id number] 1 tablet 2 TIMES DAILY 1 tablet 2 TIMES DAILY (route: oral) Med Classific ation: Cardiovas cular Therapy Agents carvedilol 6.25 mg tablet 2024-09 00:00: 00 Yes [id number] 1 tablet 2 TIMES DAILY 1 tablet [...] MAINTAIN SITUATIONAL AWARENESS AND WILL NOTIFY CLINICAL AIRCRAFT PART ASSEMBLER AND PHYSICIAN/PROVIDER WITH ANY CHANGE IN CONDITION. [code = SKILLED NURSE TO PERFORM ENVIRONMENTAL SAFETY RISK ASSESSMENT AND FALL RISK ASSESSMENT AND PROVIDE INSTRUCTION TO IMPLEMENT ENVIRONMENTAL SAFETY AND FALL PREVENTION STRATEGIES THROUGHOUT THE CERTIFICATION PERIOD. SKILLED NURSE WILL MAINTAIN SITUATIONAL AWARENESS AND WILL NOTIFY CLINICAL AIRCRAFT PART ASSEMBLER AND PHYSICIAN/PROVIDER WITH ANY CHANGE IN CONDITION.] [...] 00:00:00 2025-10-02 00:00:00 Outpatient ASHLEY EVERETT [facility] [id number] 17.1 4
--- OUTSIDE RECORDS SUMMARY | 2025-10-01 18:00 | XMS_ITS | Clinical Summary ---
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) USE OF ORAL HYPOGLYCEMIC DRUGS Active 09-24 00:00: 00 FISHING TOOL TECHNICIAN OIL WELL (CURRENT) USE OF ASPIRIN Active 09-24 00:00: 00 FISHING TOOL TECHNICIAN OIL WELL (CURRENT) USE OF ANTICOAGULAN TS Active 09-24 [...] 81 mg tablet 2024-09 00:00: 00 Yes [id number] 1 tablet DAILY 1 tablet DAILY (route: oral) Med Classific ation: Hematolog ical Agents atorvastati n 10 mg tablet 2024-09 00:00: 00 Yes [id number] 1 tablet DAILY 1 tablet DAILY (route: oral) Med Classific ation: Cardiovas cular Therapy Agents carvedilol 3.125 mg tablet 2024-09 00:00: 00 08-04 00:00 :00 No [id number] 1 tablet 2 TIMES DAILY 1 tablet 2 TIMES DAILY (route: oral) Med Classific ation: Cardiovas cular Therapy Agents Eliquis 5 mg tablet 2024-09 00:00: 00 Yes [id number] 1 tablet 2 TIMES DAILY 1 tablet 2 TIMES DAILY (route: oral) Med Classific ation: Hematolog ical Agents Entresto 24 mg-26 mg tablet 2024-09 00:00: 00 Yes [id number] 1 tablet 2 TIMES DAILY 1 tablet 2 TIMES DAILY (route: oral) Med Classific ation: Cardiovas cular Therapy Agents ferrous sulfate 325 mg (65 mg iron) tablet 2024-09 00:00: 00 Yes [id number] 1 tablet DAILY 1 tablet DAILY (route: oral) Med Classific ation: Electroly te Balance-N utritiona l Products furosemide 20 mg tablet 2024-09 00:00: 00 Yes [id number] 1 tablet EVERY OTHER DAY 1 tablet EVERY OTHER DAY (route: oral) Med Classific ation: Cardiovas cular Therapy Agents Jardiance 10 mg tablet 2024-09 00:00: 00 Yes [id number] 1 tablet DAILY 1 tablet DAILY (route: oral) Med Classific ation: Endocrine sertraline 25 mg tablet 2024-09 00:00: 00 Yes [id number] 1 tablet DAILY 1 tablet DAILY (route: oral) Med Classific ation: Central Nervous System Agents spironolact one 25 mg tablet 2024-09 00:00: 00 Yes [id number] 1 tablet DAILY 1 tablet DAILY (route: oral) Med Classific ation: Cardiovas cular Therapy Agents Wound Cleanser irrigation spray 2024-09 00:00: 00 08-04 00:00 :00 No [id number] Per instruc tions DIRECTED Per instructio ns DIRECTED (route: irrigation ) Med Classific ation: Dermatolo gical Pharmacy Compounded Medication 2024-09 00:00: 00 08-04 00:00 :00 No [id number] Per instruc tions DIRECTED Per instructio ns DIRECTED (route: Per Instructio ns) Med Classific ation: Custom acetaminoph en 325 mg capsule 2024-09 00:00: 00 Yes [id number] 2 capsule EVERY 4 HOURS 2 capsule EVERY 4 HOURS (route: oral) Med Classific ation: Analgesic , Anti-infl ammatory or Antipyret ic amiodarone 200 mg tablet 2024-09 00:00: 00 Yes [id number] 1 tablet 2 TIMES DAILY 1 tablet 2 TIMES DAILY (route: oral) Med Classific ation: Cardiovas cular Therapy Agents carvedilol 6.25 mg tablet 2024-09 00:00: 00 Yes [id number] 1 tablet 2 TIMES DAILY 1 tablet [...] MAINTAIN SITUATIONAL AWARENESS AND WILL NOTIFY CLINICAL LOCKSTITCH MACHINE OPERATOR AND PHYSICIAN/PROVIDER WITH ANY CHANGE IN CONDITION. [code = SKILLED NURSE TO PERFORM ENVIRONMENTAL SAFETY RISK ASSESSMENT AND FALL RISK ASSESSMENT AND PROVIDE INSTRUCTION TO IMPLEMENT ENVIRONMENTAL SAFETY AND FALL PREVENTION STRATEGIES THROUGHOUT THE CERTIFICATION PERIOD. SKILLED NURSE WILL MAINTAIN SITUATIONAL AWARENESS AND WILL NOTIFY CLINICAL LOCKSTITCH MACHINE OPERATOR AND PHYSICIAN/PROVIDER WITH ANY CHANGE IN [...] CARE WILL BE ESTABLISHED THAT MEETS PATIENT'S FDC NEEDS AND INCLUDES PATIENT GOAL FOR HOME [...] NOTED. PATIENT'S CALENDAR WAS REVIEWED REGARDING NEXT [facility] VISIT. PATIENT ADVISED TO CALL [facility] WITH ANY QUESTIONS CONCERNS OR CHANGES IN HEALTH STATUS</paragraph> Encounters Start Date/Time End Date/Time Encounter Type Admission Type Attending [facility] Care Department Encounter ID Discharge Date Discharge Status Discharge Condition Discharge Reason Percent Goals Met 2025-08-04 00:00:00 2025-10-02 00:00:00 Outpatient ASHLEY EVERETT [facility] [id number] 17.1 4
--- OUTSIDE RECORDS SUMMARY | 2025-10-01 18:00 | XMS_ITS | Clinical Summary ---
Author Organization Unknown Care Team Providers Care Environmental Services Technician Name Role Phone OSMIN BURNETT, RAJENDRA Unavailable Unavailable NAYLA RNASHLEY Unavailable Unavailable Payers Payer Name Policy Type Policy Number Effective Date Expira tion Date MEDICARE - [place] - [facility] [id number] Problems Condition Name Condition Details Condition Category [...] OF DIGESTIVE TRACT Active 09-24 00:00: 00 BIOLOGY SPECIMEN TECHNICIAN (CURRENT) USE OF ORAL HYPOGLYCEMIC DRUGS Active 09-24 00:00: 00 BIOLOGY SPECIMEN TECHNICIAN (CURRENT) USE OF ASPIRIN Active 09-24 00:00: 00 BIOLOGY SPECIMEN TECHNICIAN (CURRENT) USE OF ANTICOAGULAN TS Active [...] 81 mg tablet 2024-09 00:00: 00 Yes [id number] 1 tablet DAILY 1 tablet DAILY (route: oral) Med Classific ation: Hematolog ical Agents atorvastati n 10 mg tablet 2024-09 00:00: 00 Yes [id number] 1 tablet DAILY 1 tablet DAILY (route: oral) Med Classific ation: Cardiovas cular Therapy Agents carvedilol 3.125 mg tablet 2024-09 00:00: 00 08-04 00:00 :00 No [id number] 1 tablet 2 TIMES DAILY 1 tablet 2 TIMES DAILY (route: oral) Med Classific ation: Cardiovas cular Therapy Agents Eliquis 5 mg tablet 2024-09 00:00: 00 Yes [id number] 1 tablet 2 TIMES DAILY 1 tablet 2 TIMES DAILY (route: oral) Med Classific ation: Hematolog ical Agents Entresto 24 mg-26 mg tablet 2024-09 00:00: 00 Yes [id number] 1 tablet 2 TIMES DAILY 1 tablet 2 TIMES DAILY (route: oral) Med Classific ation: Cardiovas cular Therapy Agents ferrous sulfate 325 mg (65 mg iron) tablet 2024-09 00:00: 00 Yes [id number] 1 tablet DAILY 1 tablet DAILY (route: oral) Med Classific ation: Electroly te Balance-N utritiona l Products furosemide 20 mg tablet 2024-09 00:00: 00 Yes [id number] 1 tablet EVERY OTHER DAY 1 tablet EVERY OTHER DAY (route: oral) Med Classific ation: Cardiovas cular Therapy Agents Jardiance 10 mg tablet 2024-09 00:00: 00 Yes [id number] 1 tablet DAILY 1 tablet DAILY (route: oral) Med Classific ation: Endocrine sertraline 25 mg tablet 2024-09 00:00: 00 Yes [id number] 1 tablet DAILY 1 tablet DAILY (route: oral) Med Classific ation: Central Nervous System Agents spironolact one 25 mg tablet 2024-09 00:00: 00 Yes [id number] 1 tablet DAILY 1 tablet DAILY (route: oral) Med Classific ation: Cardiovas cular Therapy Agents Wound Cleanser irrigation spray 2024-09 00:00: 00 08-04 00:00 :00 No [id number] Per instruc tions DIRECTED Per instructio ns DIRECTED (route: irrigation ) Med Classific ation: Dermatolo gical Pharmacy Compounded Medication 2024-09 00:00: 00 08-04 00:00 :00 No [id number] Per instruc tions DIRECTED Per instructio ns DIRECTED (route: Per Instructio ns) Med Classific ation: Custom acetaminoph en 325 mg capsule 2024-09 00:00: 00 Yes [id number] 2 capsule EVERY 4 HOURS 2 capsule EVERY 4 HOURS (route: oral) Med Classific ation: Analgesic , Anti-infl ammatory or Antipyret ic amiodarone 200 mg tablet 2024-09 00:00: 00 Yes [id number] 1 tablet 2 TIMES DAILY 1 tablet 2 TIMES DAILY (route: oral) Med Classific ation: Cardiovas cular Therapy Agents carvedilol 6.25 mg tablet 2024-09 00:00: 00 Yes [id number] 1 tablet 2 TIMES DAILY 1 tablet [...] MAINTAIN SITUATIONAL AWARENESS AND WILL NOTIFY CLINICAL TRIAL CONSULTANT AND PHYSICIAN/PROVIDER WITH ANY CHANGE IN CONDITION. [code = SKILLED NURSE TO PERFORM ENVIRONMENTAL SAFETY RISK ASSESSMENT AND FALL RISK ASSESSMENT AND PROVIDE INSTRUCTION TO IMPLEMENT ENVIRONMENTAL SAFETY AND FALL PREVENTION STRATEGIES THROUGHOUT THE CERTIFICATION PERIOD. SKILLED NURSE WILL MAINTAIN SITUATIONAL AWARENESS AND WILL NOTIFY CLINICAL TRIAL CONSULTANT AND PHYSICIAN/PROVIDER WITH ANY CHANGE IN [...] [facility] [id number] 17.1 4
--- OUTSIDE RECORDS SUMMARY | 2025-10-01 18:00 | XMS_ITS | Clinical Summary ---
Author Organization Unknown Care Team Providers Care Software Applications Architect Name Role Phone OSMIN BURNETT, RAJENDRA Unavailable Unavailable NAYLA RNASHLEY Unavailable Unavailable Payers Payer Name Policy Type Policy Number Effective Date Expira tion Date MEDICARE - [place] - [facility] [id number] Problems Condition Name Condition Details Condition Category [...] OF DIGESTIVE TRACT Active 09-24 00:00: 00 ENGINEERING TEAM SUPERVISOR (CURRENT) USE OF ORAL HYPOGLYCEMIC DRUGS Active 09-24 00:00: 00 ENGINEERING TEAM SUPERVISOR (CURRENT) USE OF ASPIRIN Active 09-24 00:00: 00 ENGINEERING TEAM SUPERVISOR (CURRENT) USE OF ANTICOAGULAN TS Active [...] 81 mg tablet 2024-09 00:00: 00 Yes [id number] 1 tablet DAILY 1 tablet DAILY (route: oral) Med Classific ation: Hematolog ical Agents atorvastati n 10 mg tablet 2024-09 00:00: 00 Yes [id number] 1 tablet DAILY 1 tablet DAILY (route: oral) Med Classific ation: Cardiovas cular Therapy Agents carvedilol 3.125 mg tablet 2024-09 00:00: 00 08-04 00:00 :00 No [id number] 1 tablet 2 TIMES DAILY 1 tablet 2 TIMES DAILY (route: oral) Med Classific ation: Cardiovas cular Therapy Agents Eliquis 5 mg tablet 2024-09 00:00: 00 Yes [id number] 1 tablet 2 TIMES DAILY 1 tablet 2 TIMES DAILY (route: oral) Med Classific ation: Hematolog ical Agents Entresto 24 mg-26 mg tablet 2024-09 00:00: 00 Yes [id number] 1 tablet 2 TIMES DAILY 1 tablet 2 TIMES DAILY (route: oral) Med Classific ation: Cardiovas cular Therapy Agents ferrous sulfate 325 mg (65 mg iron) tablet 2024-09 00:00: 00 Yes [id number] 1 tablet DAILY 1 tablet DAILY (route: oral) Med Classific ation: Electroly te Balance-N utritiona l Products furosemide 20 mg tablet 2024-09 00:00: 00 Yes [id number] 1 tablet EVERY OTHER DAY 1 tablet EVERY OTHER DAY (route: oral) Med Classific ation: Cardiovas cular Therapy Agents Jardiance 10 mg tablet 2024-09 00:00: 00 Yes [id number] 1 tablet DAILY 1 tablet DAILY (route: oral) Med Classific ation: Endocrine sertraline 25 mg tablet 2024-09 00:00: 00 Yes [id number] 1 tablet DAILY 1 tablet DAILY (route: oral) Med Classific ation: Central Nervous System Agents spironolact one 25 mg tablet 2024-09 00:00: 00 Yes [id number] 1 tablet DAILY 1 tablet DAILY (route: oral) Med Classific ation: Cardiovas cular Therapy Agents Wound Cleanser irrigation spray 2024-09 00:00: 00 08-04 00:00 :00 No [id number] Per instruc tions DIRECTED Per instructio ns DIRECTED (route: irrigation ) Med Classific ation: Dermatolo gical Pharmacy Compounded Medication 2024-09 00:00: 00 08-04 00:00 :00 No [id number] Per instruc tions DIRECTED Per instructio ns DIRECTED (route: Per Instructio ns) Med Classific ation: Custom acetaminoph en 325 mg capsule 2024-09 00:00: 00 Yes [id number] 2 capsule EVERY 4 HOURS 2 capsule EVERY 4 HOURS (route: oral) Med Classific ation: Analgesic , Anti-infl ammatory or Antipyret ic amiodarone 200 mg tablet 2024-09 00:00: 00 Yes [id number] 1 tablet 2 TIMES DAILY 1 tablet 2 TIMES DAILY (route: oral) Med Classific ation: Cardiovas cular Therapy Agents carvedilol 6.25 mg tablet 2024-09 00:00: 00 Yes [id number] 1 tablet 2 TIMES DAILY 1 tablet [...] MAINTAIN SITUATIONAL AWARENESS AND WILL NOTIFY CLINICAL INSIDE TRUCKER AND PHYSICIAN/PROVIDER WITH ANY CHANGE IN CONDITION. [code = SKILLED NURSE TO PERFORM ENVIRONMENTAL SAFETY RISK ASSESSMENT AND FALL RISK ASSESSMENT AND PROVIDE INSTRUCTION TO IMPLEMENT ENVIRONMENTAL SAFETY AND FALL PREVENTION STRATEGIES THROUGHOUT THE CERTIFICATION PERIOD. SKILLED NURSE WILL MAINTAIN SITUATIONAL AWARENESS AND WILL NOTIFY CLINICAL INSIDE TRUCKER AND PHYSICIAN/PROVIDER WITH ANY CHANGE IN CONDITION.] [...] CARE WILL BE ESTABLISHED THAT MEETS PATIENT'S [facility] NEEDS AND INCLUDES PATIENT GOAL FOR HOME [...] NOTED. PATIENT'S CALENDAR WAS REVIEWED REGARDING NEXT [facility] VISIT. PATIENT ADVISED TO CALL [facility] WITH ANY QUESTIONS CONCERNS OR CHANGES IN HEALTH STATUS</paragraph> Encounters Start Date/Time End Date/Time Encounter Type Admission Type Attending [facility] Care Department Encounter ID Discharge Date Discharge Status Discharge Condition Discharge Reason Percent Goals Met 2025-08-04 00:00:00 2025-10-02 00:00:00 Outpatient ASHLEY EVERETT [facility] [id number] 17.1 4
--- OUTSIDE RECORDS SUMMARY | 2025-10-01 18:00 | XMS_ITS | Clinical Summary ---
Author Organization Unknown Care Team Providers Care Gripper Installer Name Role Phone OSMIN BURNETT, RAJENDRA Unavailable Unavailable NAYLA RNASHLEY Unavailable Unavailable Payers Payer Name Policy Type Policy Number Effective Date Expira tion Date MEDICARE - [place] - [facility] [id number] Problems Condition Name Condition Details Condition Category [...] OF DIGESTIVE TRACT Active 09-24 00:00: 00 REPORTING COORDINATOR (CURRENT) USE OF ORAL HYPOGLYCEMIC DRUGS Active 09-24 00:00: 00 REPORTING COORDINATOR (CURRENT) USE OF ASPIRIN Active 09-24 00:00: 00 REPORTING COORDINATOR (CURRENT) USE OF ANTICOAGULAN TS Active [...] 81 mg tablet 2024-09 00:00: 00 Yes [id number] 1 tablet DAILY 1 tablet DAILY (route: oral) Med Classific ation: Hematolog ical Agents atorvastati n 10 mg tablet 2024-09 00:00: 00 Yes [id number] 1 tablet DAILY 1 tablet DAILY (route: oral) Med Classific ation: Cardiovas cular Therapy Agents carvedilol 3.125 mg tablet 2024-09 00:00: 00 08-04 00:00 :00 No [id number] 1 tablet 2 TIMES DAILY 1 tablet 2 TIMES DAILY (route: oral) Med Classific ation: Cardiovas cular Therapy Agents Eliquis 5 mg tablet 2024-09 00:00: 00 Yes [id number] 1 tablet 2 TIMES DAILY 1 tablet 2 TIMES DAILY (route: oral) Med Classific ation: Hematolog ical Agents Entresto 24 mg-26 mg tablet 2024-09 00:00: 00 Yes [id number] 1 tablet 2 TIMES DAILY 1 tablet 2 TIMES DAILY (route: oral) Med Classific ation: Cardiovas cular Therapy Agents ferrous sulfate 325 mg (65 mg iron) tablet 2024-09 00:00: 00 Yes [id number] 1 tablet DAILY 1 tablet DAILY (route: oral) Med Classific ation: Electroly te Balance-N utritiona l Products furosemide 20 mg tablet 2024-09 00:00: 00 Yes [id number] 1 tablet EVERY OTHER DAY 1 tablet EVERY OTHER DAY (route: oral) Med Classific ation: Cardiovas cular Therapy Agents Jardiance 10 mg tablet 2024-09 00:00: 00 Yes [id number] 1 tablet DAILY 1 tablet DAILY (route: oral) Med Classific ation: Endocrine sertraline 25 mg tablet 2024-09 00:00: 00 Yes [id number] 1 tablet DAILY 1 tablet DAILY (route: oral) Med Classific ation: Central Nervous System Agents spironolact one 25 mg tablet 2024-09 00:00: 00 Yes [id number] 1 tablet DAILY 1 tablet DAILY (route: oral) Med Classific ation: Cardiovas cular Therapy Agents Wound Cleanser irrigation spray 2024-09 00:00: 00 08-04 00:00 :00 No [id number] Per instruc tions DIRECTED Per instructio ns DIRECTED (route: irrigation ) Med Classific ation: Dermatolo gical Pharmacy Compounded Medication 2024-09 00:00: 00 08-04 00:00 :00 No [id number] Per instruc tions DIRECTED Per instructio ns DIRECTED (route: Per Instructio ns) Med Classific ation: Custom acetaminoph en 325 mg capsule 2024-09 00:00: 00 Yes [id number] 2 capsule EVERY 4 HOURS 2 capsule EVERY 4 HOURS (route: oral) Med Classific ation: Analgesic , Anti-infl ammatory or Antipyret ic amiodarone 200 mg tablet 2024-09 00:00: 00 Yes [id number] 1 tablet 2 TIMES DAILY 1 tablet 2 TIMES DAILY (route: oral) Med Classific ation: Cardiovas cular Therapy Agents carvedilol 6.25 mg tablet 2024-09 00:00: 00 Yes [id number] 1 tablet 2 TIMES DAILY 1 tablet [...] MAINTAIN SITUATIONAL AWARENESS AND WILL NOTIFY CLINICAL UPHOLSTERED GOODS CRAFTER AND PHYSICIAN/PROVIDER WITH ANY CHANGE IN CONDITION. [code = SKILLED NURSE TO PERFORM ENVIRONMENTAL SAFETY RISK ASSESSMENT AND FALL RISK ASSESSMENT AND PROVIDE INSTRUCTION TO IMPLEMENT ENVIRONMENTAL SAFETY AND FALL PREVENTION STRATEGIES THROUGHOUT THE CERTIFICATION PERIOD. SKILLED NURSE WILL MAINTAIN SITUATIONAL AWARENESS AND WILL NOTIFY CLINICAL UPHOLSTERED GOODS CRAFTER AND PHYSICIAN/PROVIDER WITH ANY CHANGE IN CONDITION.] [...] End Date/Time Encounter Type Admission Type Attending [facility] Care Department Encounter ID Discharge Date Discharge Status Discharge Condition Discharge Reason Percent Goals Met 2025-08-04 00:00:00 2025-10-02 00:00:00 Outpatient ASHLEY EVERETT [facility] [id number] 17.1 4
--- OUTSIDE RECORDS SUMMARY | 2025-10-01 18:00 | XMS_ITS | Clinical Summary ---
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 (CURRENT) USE OF ORAL HYPOGLYCEMIC DRUGS Active 09-24 00:00: 00 ONLINE ADVERTISING MANAGER (CURRENT) USE OF ASPIRIN Active 09-24 00:00: 00 ONLINE ADVERTISING MANAGER (CURRENT) USE OF ANTICOAGULAN TS Active [...] 81 mg tablet 2024-09 00:00: 00 Yes [id number] 1 tablet DAILY 1 tablet DAILY (route: oral) Med Classific ation: Hematolog ical Agents atorvastati n 10 mg tablet 2024-09 00:00: 00 Yes [id number] 1 tablet DAILY 1 tablet DAILY (route: oral) Med Classific ation: Cardiovas cular Therapy Agents carvedilol 3.125 mg tablet 2024-09 00:00: 00 08-04 00:00 :00 No [id number] 1 tablet 2 TIMES DAILY 1 tablet 2 TIMES DAILY (route: oral) Med Classific ation: Cardiovas cular Therapy Agents Eliquis 5 mg tablet 2024-09 00:00: 00 Yes [id number] 1 tablet 2 TIMES DAILY 1 tablet 2 TIMES DAILY (route: oral) Med Classific ation: Hematolog ical Agents Entresto 24 mg-26 mg tablet 2024-09 00:00: 00 Yes [id number] 1 tablet 2 TIMES DAILY 1 tablet 2 TIMES DAILY (route: oral) Med Classific ation: Cardiovas cular Therapy Agents ferrous sulfate 325 mg (65 mg iron) tablet 2024-09 00:00: 00 Yes [id number] 1 tablet DAILY 1 tablet DAILY (route: oral) Med Classific ation: Electroly te Balance-N utritiona l Products furosemide 20 mg tablet 2024-09 00:00: 00 Yes [id number] 1 tablet EVERY OTHER DAY 1 tablet EVERY OTHER DAY (route: oral) Med Classific ation: Cardiovas cular Therapy Agents Jardiance 10 mg tablet 2024-09 00:00: 00 Yes [id number] 1 tablet DAILY 1 tablet DAILY (route: oral) Med Classific ation: Endocrine sertraline 25 mg tablet 2024-09 00:00: 00 Yes [id number] 1 tablet DAILY 1 tablet DAILY (route: oral) Med Classific ation: Central Nervous System Agents spironolact one 25 mg tablet 2024-09 00:00: 00 Yes [id number] 1 tablet DAILY 1 tablet DAILY (route: oral) Med Classific ation: Cardiovas cular Therapy Agents Wound Cleanser irrigation spray 2024-09 00:00: 00 08-04 00:00 :00 No [id number] Per instruc tions DIRECTED Per instructio ns DIRECTED (route: irrigation ) Med Classific ation: Dermatolo gical Pharmacy Compounded Medication 2024-09 00:00: 00 08-04 00:00 :00 No [id number] Per instruc tions DIRECTED Per instructio ns DIRECTED (route: Per Instructio ns) Med Classific ation: Custom acetaminoph en 325 mg capsule 2024-09 00:00: 00 Yes [id number] 2 capsule EVERY 4 HOURS 2 capsule EVERY 4 HOURS (route: oral) Med Classific ation: Analgesic , Anti-infl ammatory or Antipyret ic amiodarone 200 mg tablet 2024-09 00:00: 00 Yes [id number] 1 tablet 2 TIMES DAILY 1 tablet 2 TIMES DAILY (route: oral) Med Classific ation: Cardiovas cular Therapy Agents carvedilol 6.25 mg tablet 2024-09 00:00: 00 Yes [id number] 1 tablet 2 TIMES DAILY 1 tablet [...] MAINTAIN SITUATIONAL AWARENESS AND WILL NOTIFY CLINICAL WASTE MANAGEMENT RECYCLING TECHNICIAN AND PHYSICIAN/PROVIDER WITH ANY CHANGE IN CONDITION. [code = SKILLED NURSE TO PERFORM ENVIRONMENTAL SAFETY RISK ASSESSMENT AND FALL RISK ASSESSMENT AND PROVIDE INSTRUCTION TO IMPLEMENT ENVIRONMENTAL SAFETY AND FALL PREVENTION STRATEGIES THROUGHOUT THE CERTIFICATION PERIOD. SKILLED NURSE WILL MAINTAIN SITUATIONAL AWARENESS AND WILL NOTIFY CLINICAL WASTE MANAGEMENT RECYCLING TECHNICIAN AND PHYSICIAN/PROVIDER WITH ANY CHANGE IN [...] NEXT ASSISTED VISIT. PATIENT ADVISED TO CALL [facility] WITH ANY QUESTIONS CONCERNS OR CHANGES IN HEALTH STATUS</paragraph> Encounters Start Date/Time End Date/Time Encounter Type Admission Type Attending [facility] Care Department Encounter ID Discharge Date Discharge Status Discharge Condition Discharge Reason Percent Goals Met 2025-08-04 00:00:00 2025-10-02 00:00:00 Outpatient ASHLEY EVERETT [facility] [id number] 17.1 4
--- OUTSIDE RECORDS SUMMARY | 2025-10-01 18:00 | XMS_ITS | Clinical Summary ---
Author Organization Unknown Care Team Providers Care Physician Practice Market Manager Name Role Phone OSMIN BURNETT, RAJENDRA Unavailable Unavailable NAYLA RNASHLEY Unavailable Unavailable Payers Payer Name Policy Type Policy Number Effective Date Expira tion Date MEDICARE - [place] - [facility] [id number] Problems Condition Name Condition Details Condition Category [...] OF DIGESTIVE TRACT Active 09-24 00:00: 00 FINE PATCHER (CURRENT) USE OF ORAL HYPOGLYCEMIC DRUGS Active 09-24 00:00: 00 FINE PATCHER (CURRENT) USE OF ASPIRIN Active 09-24 00:00: 00 FINE PATCHER (CURRENT) USE OF ANTICOAGULAN TS Active 09-24 [...] 81 mg tablet 2024-09 00:00: 00 Yes [id number] 1 tablet DAILY 1 tablet DAILY (route: oral) Med Classific ation: Hematolog ical Agents atorvastati n 10 mg tablet 2024-09 00:00: 00 Yes [id number] 1 tablet DAILY 1 tablet DAILY (route: oral) Med Classific ation: Cardiovas cular Therapy Agents carvedilol 3.125 mg tablet 2024-09 00:00: 00 08-04 00:00 :00 No [id number] 1 tablet 2 TIMES DAILY 1 tablet 2 TIMES DAILY (route: oral) Med Classific ation: Cardiovas cular Therapy Agents Eliquis 5 mg tablet 2024-09 00:00: 00 Yes [id number] 1 tablet 2 TIMES DAILY 1 tablet 2 TIMES DAILY (route: oral) Med Classific ation: Hematolog ical Agents Entresto 24 mg-26 mg tablet 2024-09 00:00: 00 Yes [id number] 1 tablet 2 TIMES DAILY 1 tablet 2 TIMES DAILY (route: oral) Med Classific ation: Cardiovas cular Therapy Agents ferrous sulfate 325 mg (65 mg iron) tablet 2024-09 00:00: 00 Yes [id number] 1 tablet DAILY 1 tablet DAILY (route: oral) Med Classific ation: Electroly te Balance-N utritiona l Products furosemide 20 mg tablet 2024-09 00:00: 00 Yes [id number] 1 tablet EVERY OTHER DAY 1 tablet EVERY OTHER DAY (route: oral) Med Classific ation: Cardiovas cular Therapy Agents Jardiance 10 mg tablet 2024-09 00:00: 00 Yes [id number] 1 tablet DAILY 1 tablet DAILY (route: oral) Med Classific ation: Endocrine sertraline 25 mg tablet 2024-09 00:00: 00 Yes [id number] 1 tablet DAILY 1 tablet DAILY (route: oral) Med Classific ation: Central Nervous System Agents spironolact one 25 mg tablet 2024-09 00:00: 00 Yes [id number] 1 tablet DAILY 1 tablet DAILY (route: oral) Med Classific ation: Cardiovas cular Therapy Agents Wound Cleanser irrigation spray 2024-09 00:00: 00 08-04 00:00 :00 No [id number] Per instruc tions DIRECTED Per instructio ns DIRECTED (route: irrigation ) Med Classific ation: Dermatolo gical Pharmacy Compounded Medication 2024-09 00:00: 00 08-04 00:00 :00 No [id number] Per instruc tions DIRECTED Per instructio ns DIRECTED (route: Per Instructio ns) Med Classific ation: Custom acetaminoph en 325 mg capsule 2024-09 00:00: 00 Yes [id number] 2 capsule EVERY 4 HOURS 2 capsule EVERY 4 HOURS (route: oral) Med Classific ation: Analgesic , Anti-infl ammatory or Antipyret ic amiodarone 200 mg tablet 2024-09 00:00: 00 Yes [id number] 1 tablet 2 TIMES DAILY 1 tablet 2 TIMES DAILY (route: oral) Med Classific ation: Cardiovas cular Therapy Agents carvedilol 6.25 mg tablet 2024-09 00:00: 00 Yes [id number] 1 tablet 2 TIMES DAILY 1 tablet [...] MAINTAIN SITUATIONAL AWARENESS AND WILL NOTIFY CLINICAL OTR FLATBED DRIVER AND PHYSICIAN/PROVIDER WITH ANY CHANGE IN CONDITION. [code = SKILLED NURSE TO PERFORM ENVIRONMENTAL SAFETY RISK ASSESSMENT AND FALL RISK ASSESSMENT AND PROVIDE INSTRUCTION TO IMPLEMENT ENVIRONMENTAL SAFETY AND FALL PREVENTION STRATEGIES THROUGHOUT THE CERTIFICATION PERIOD. SKILLED NURSE WILL MAINTAIN SITUATIONAL AWARENESS AND WILL NOTIFY CLINICAL OTR FLATBED DRIVER AND PHYSICIAN/PROVIDER WITH ANY CHANGE IN CONDITION.] [...] End Date/Time Encounter Type Admission Type Attending [facility] Care Department Encounter ID Discharge Date Discharge Status Discharge Condition Discharge Reason Percent Goals Met 2025-08-04 00:00:00 2025-10-02 00:00:00 Outpatient ASHLEY EVERETT [facility] [id number] 17.1 4
--- OUTSIDE RECORDS SUMMARY | 2025-10-01 18:00 | XMS_ITS | Clinical Summary ---
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 (CURRENT) USE OF ORAL HYPOGLYCEMIC DRUGS Active 09-24 00:00: 00 METALLURGICAL ANALYST (CURRENT) USE OF ASPIRIN Active 09-24 00:00: 00 METALLURGICAL ANALYST (CURRENT) USE OF ANTICOAGULAN TS Active 09-24 [...] 81 mg tablet 2024-09 00:00: 00 Yes [id number] 1 tablet DAILY 1 tablet DAILY (route: oral) Med Classific ation: Hematolog ical Agents atorvastati n 10 mg tablet 2024-09 00:00: 00 Yes [id number] 1 tablet DAILY 1 tablet DAILY (route: oral) Med Classific ation: Cardiovas cular Therapy Agents carvedilol 3.125 mg tablet 2024-09 00:00: 00 08-04 00:00 :00 No [id number] 1 tablet 2 TIMES DAILY 1 tablet 2 TIMES DAILY (route: oral) Med Classific ation: Cardiovas cular Therapy Agents Eliquis 5 mg tablet 2024-09 00:00: 00 Yes [id number] 1 tablet 2 TIMES DAILY 1 tablet 2 TIMES DAILY (route: oral) Med Classific ation: Hematolog ical Agents Entresto 24 mg-26 mg tablet 2024-09 00:00: 00 Yes [id number] 1 tablet 2 TIMES DAILY 1 tablet 2 TIMES DAILY (route: oral) Med Classific ation: Cardiovas cular Therapy Agents ferrous sulfate 325 mg (65 mg iron) tablet 2024-09 00:00: 00 Yes [id number] 1 tablet DAILY 1 tablet DAILY (route: oral) Med Classific ation: Electroly te Balance-N utritiona l Products furosemide 20 mg tablet 2024-09 00:00: 00 Yes [id number] 1 tablet EVERY OTHER DAY 1 tablet EVERY OTHER DAY (route: oral) Med Classific ation: Cardiovas cular Therapy Agents Jardiance 10 mg tablet 2024-09 00:00: 00 Yes [id number] 1 tablet DAILY 1 tablet DAILY (route: oral) Med Classific ation: Endocrine sertraline 25 mg tablet 2024-09 00:00: 00 Yes [id number] 1 tablet DAILY 1 tablet DAILY (route: oral) Med Classific ation: Central Nervous System Agents spironolact one 25 mg tablet 2024-09 00:00: 00 Yes [id number] 1 tablet DAILY 1 tablet DAILY (route: oral) Med Classific ation: Cardiovas cular Therapy Agents Wound Cleanser irrigation spray 2024-09 00:00: 00 08-04 00:00 :00 No [id number] Per instruc tions DIRECTED Per instructio ns DIRECTED (route: irrigation ) Med Classific ation: Dermatolo gical Pharmacy Compounded Medication 2024-09 00:00: 00 08-04 00:00 :00 No [id number] Per instruc tions DIRECTED Per instructio ns DIRECTED (route: Per Instructio ns) Med Classific ation: Custom acetaminoph en 325 mg capsule 2024-09 00:00: 00 Yes [id number] 2 capsule EVERY 4 HOURS 2 capsule EVERY 4 HOURS (route: oral) Med Classific ation: Analgesic , Anti-infl ammatory or Antipyret ic amiodarone 200 mg tablet 2024-09 00:00: 00 Yes [id number] 1 tablet 2 TIMES DAILY 1 tablet 2 TIMES DAILY (route: oral) Med Classific ation: Cardiovas cular Therapy Agents carvedilol 6.25 mg tablet 2024-09 00:00: 00 Yes [id number] 1 tablet 2 TIMES DAILY 1 tablet [...] MAINTAIN SITUATIONAL AWARENESS AND WILL NOTIFY CLINICAL PRECISION HONER AND PHYSICIAN/PROVIDER WITH ANY CHANGE IN CONDITION. [code = SKILLED NURSE TO PERFORM ENVIRONMENTAL SAFETY RISK ASSESSMENT AND FALL RISK ASSESSMENT AND PROVIDE INSTRUCTION TO IMPLEMENT ENVIRONMENTAL SAFETY AND FALL PREVENTION STRATEGIES THROUGHOUT THE CERTIFICATION PERIOD. SKILLED NURSE WILL MAINTAIN SITUATIONAL AWARENESS AND WILL NOTIFY CLINICAL PRECISION HONER AND PHYSICIAN/PROVIDER WITH ANY CHANGE IN CONDITION.] [...] Outpatient ASHLEY EVERETT [facility] [id number] 17.1 4
--- OUTSIDE RECORDS SUMMARY | 2025-10-01 18:00 | XMS_ITS | Clinical Summary ---
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 ASPIRIN Active 09-24 00:00: 00 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 PREVENTION WORKER (CURRENT) USE OF ANTICOAGULAN TS Active 09-24 [...] 81 mg tablet 2024-09 00:00: 00 Yes [id number] 1 tablet DAILY 1 tablet DAILY (route: oral) Med Classific ation: Hematolog ical Agents atorvastati n 10 mg tablet 2024-09 00:00: 00 Yes [id number] 1 tablet DAILY 1 tablet DAILY (route: oral) Med Classific ation: Cardiovas cular Therapy Agents carvedilol 3.125 mg tablet 2024-09 00:00: 00 08-04 00:00 :00 No [id number] 1 tablet 2 TIMES DAILY 1 tablet 2 TIMES DAILY (route: oral) Med Classific ation: Cardiovas cular Therapy Agents Eliquis 5 mg tablet 2024-09 00:00: 00 Yes [id number] 1 tablet 2 TIMES DAILY 1 tablet 2 TIMES DAILY (route: oral) Med Classific ation: Hematolog ical Agents Entresto 24 mg-26 mg tablet 2024-09 00:00: 00 Yes [id number] 1 tablet 2 TIMES DAILY 1 tablet 2 TIMES DAILY (route: oral) Med Classific ation: Cardiovas cular Therapy Agents ferrous sulfate 325 mg (65 mg iron) tablet 2024-09 00:00: 00 Yes [id number] 1 tablet DAILY 1 tablet DAILY (route: oral) Med Classific ation: Electroly te Balance-N utritiona l Products furosemide 20 mg tablet 2024-09 00:00: 00 Yes [id number] 1 tablet EVERY OTHER DAY 1 tablet EVERY OTHER DAY (route: oral) Med Classific ation: Cardiovas cular Therapy Agents Jardiance 10 mg tablet 2024-09 00:00: 00 Yes [id number] 1 tablet DAILY 1 tablet DAILY (route: oral) Med Classific ation: Endocrine sertraline 25 mg tablet 2024-09 00:00: 00 Yes [id number] 1 tablet DAILY 1 tablet DAILY (route: oral) Med Classific ation: Central Nervous System Agents spironolact one 25 mg tablet 2024-09 00:00: 00 Yes [id number] 1 tablet DAILY 1 tablet DAILY (route: oral) Med Classific ation: Cardiovas cular Therapy Agents Wound Cleanser irrigation spray 2024-09 00:00: 00 08-04 00:00 :00 No [id number] Per instruc tions DIRECTED Per instructio ns DIRECTED (route: irrigation ) Med Classific ation: Dermatolo gical Pharmacy Compounded Medication 2024-09 00:00: 00 08-04 00:00 :00 No [id number] Per instruc tions DIRECTED Per instructio ns DIRECTED (route: Per Instructio ns) Med Classific ation: Custom acetaminoph en 325 mg capsule 2024-09 00:00: 00 Yes [id number] 2 capsule EVERY 4 HOURS 2 capsule EVERY 4 HOURS (route: oral) Med Classific ation: Analgesic , Anti-infl ammatory or Antipyret ic amiodarone 200 mg tablet 2024-09 00:00: 00 Yes [id number] 1 tablet 2 TIMES DAILY 1 tablet 2 TIMES DAILY (route: oral) Med Classific ation: Cardiovas cular Therapy Agents carvedilol 6.25 mg tablet 2024-09 00:00: 00 Yes [id number] 1 tablet 2 TIMES DAILY 1 tablet [...] MAINTAIN SITUATIONAL AWARENESS AND WILL NOTIFY CLINICAL PT ESCORT AND PHYSICIAN/PROVIDER WITH ANY CHANGE IN CONDITION. [code = SKILLED NURSE TO PERFORM ENVIRONMENTAL SAFETY RISK ASSESSMENT AND FALL RISK ASSESSMENT AND PROVIDE INSTRUCTION TO IMPLEMENT ENVIRONMENTAL SAFETY AND FALL PREVENTION STRATEGIES THROUGHOUT THE CERTIFICATION PERIOD. SKILLED NURSE WILL MAINTAIN SITUATIONAL AWARENESS AND WILL NOTIFY CLINICAL PT ESCORT AND PHYSICIAN/PROVIDER WITH ANY CHANGE IN CONDITION.] [...] CARE WILL BE ESTABLISHED THAT MEETS PATIENT'S [facility] NEEDS AND INCLUDES PATIENT GOAL FOR HOME [...] NOTED. PATIENT'S CALENDAR WAS REVIEWED REGARDING NEXT [facility] VISIT. PATIENT ADVISED TO CALL [facility] WITH ANY QUESTIONS CONCERNS OR CHANGES IN HEALTH STATUS</paragraph> Encounters Start Date/Time End Date/Time Encounter Type Admission Type Attending [facility] Care Department Encounter ID Discharge Date Discharge Status Discharge Condition Discharge Reason Percent Goals Met 2025-08-04 00:00:00 2025-10-02 00:00:00 Outpatient ASHLEY [facility] [id number] 17.1 4
--- OUTSIDE RECORDS SUMMARY | 2025-10-01 18:00 | XMS_ITS | Clinical Summary ---
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 Active 09-24 00:00: 00 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 (CURRENT) USE OF ANTICOAGULAN TS [...] 81 mg tablet 2024-09 00:00: 00 Yes [id number] 1 tablet DAILY 1 tablet DAILY (route: oral) Med Classific ation: Hematolog ical Agents atorvastati n 10 mg tablet 2024-09 00:00: 00 Yes [id number] 1 tablet DAILY 1 tablet DAILY (route: oral) Med Classific ation: Cardiovas cular Therapy Agents carvedilol 3.125 mg tablet 2024-09 00:00: 00 08-04 00:00 :00 No [id number] 1 tablet 2 TIMES DAILY 1 tablet 2 TIMES DAILY (route: oral) Med Classific ation: Cardiovas cular Therapy Agents Eliquis 5 mg tablet 2024-09 00:00: 00 Yes [id number] 1 tablet 2 TIMES DAILY 1 tablet 2 TIMES DAILY (route: oral) Med Classific ation: Hematolog ical Agents Entresto 24 mg-26 mg tablet 2024-09 00:00: 00 Yes [id number] 1 tablet 2 TIMES DAILY 1 tablet 2 TIMES DAILY (route: oral) Med Classific ation: Cardiovas cular Therapy Agents ferrous sulfate 325 mg (65 mg iron) tablet 2024-09 00:00: 00 Yes [id number] 1 tablet DAILY 1 tablet DAILY (route: oral) Med Classific ation: Electroly te Balance-N utritiona l Products furosemide 20 mg tablet 2024-09 00:00: 00 Yes [id number] 1 tablet EVERY OTHER DAY 1 tablet EVERY OTHER DAY (route: oral) Med Classific ation: Cardiovas cular Therapy Agents Jardiance 10 mg tablet 2024-09 00:00: 00 Yes [id number] 1 tablet DAILY 1 tablet DAILY (route: oral) Med Classific ation: Endocrine sertraline 25 mg tablet 2024-09 00:00: 00 Yes [id number] 1 tablet DAILY 1 tablet DAILY (route: oral) Med Classific ation: Central Nervous System Agents spironolact one 25 mg tablet 2024-09 00:00: 00 Yes [id number] 1 tablet DAILY 1 tablet DAILY (route: oral) Med Classific ation: Cardiovas cular Therapy Agents Wound Cleanser irrigation spray 2024-09 00:00: 00 08-04 00:00 :00 No [id number] Per instruc tions DIRECTED Per instructio ns DIRECTED (route: irrigation ) Med Classific ation: Dermatolo gical Pharmacy Compounded Medication 2024-09 00:00: 00 08-04 00:00 :00 No [id number] Per instruc tions DIRECTED Per instructio ns DIRECTED (route: Per Instructio ns) Med Classific ation: Custom acetaminoph en 325 mg capsule 2024-09 00:00: 00 Yes [id number] 2 capsule EVERY 4 HOURS 2 capsule EVERY 4 HOURS (route: oral) Med Classific ation: Analgesic , Anti-infl ammatory or Antipyret ic amiodarone 200 mg tablet 2024-09 00:00: 00 Yes [id number] 1 tablet 2 TIMES DAILY 1 tablet 2 TIMES DAILY (route: oral) Med Classific ation: Cardiovas cular Therapy Agents carvedilol 6.25 mg tablet 2024-09 00:00: 00 Yes [id number] 1 tablet 2 TIMES DAILY 1 tablet [...] MAINTAIN SITUATIONAL AWARENESS AND WILL NOTIFY CLINICAL SOFT MUD MOLDER AND PHYSICIAN/PROVIDER WITH ANY CHANGE IN CONDITION. [code = SKILLED NURSE TO PERFORM ENVIRONMENTAL SAFETY RISK ASSESSMENT AND FALL RISK ASSESSMENT AND PROVIDE INSTRUCTION TO IMPLEMENT ENVIRONMENTAL SAFETY AND FALL PREVENTION STRATEGIES THROUGHOUT THE CERTIFICATION PERIOD. SKILLED NURSE WILL MAINTAIN SITUATIONAL AWARENESS AND WILL NOTIFY CLINICAL SOFT MUD MOLDER AND PHYSICIAN/PROVIDER WITH ANY CHANGE IN CONDITION.] [...] End Date/Time Encounter Type Admission Type Attending [facility] Care Department Encounter ID Discharge Date Discharge Status Discharge Condition Discharge Reason Percent Goals Met 2025-08-04 00:00:00 2025-10-02 00:00:00 Outpatient [facility]SHLEY [facility] [id number] 17.1 4
--- OUTSIDE RECORDS SUMMARY | 2025-10-01 18:00 | XMS_ITS | Clinical Summary ---
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) USE OF ASPIRIN Active 09-24 00:00: 00 ELECTRONIC GLUING MACHINE OPERATOR (CURRENT) USE OF ANTICOAGULAN TS [...] 81 mg tablet 2024-09 00:00: 00 Yes [id number] 1 tablet DAILY 1 tablet DAILY (route: oral) Med Classific ation: Hematolog ical Agents atorvastati n 10 mg tablet 2024-09 00:00: 00 Yes [id number] 1 tablet DAILY 1 tablet DAILY (route: oral) Med Classific ation: Cardiovas cular Therapy Agents carvedilol 3.125 mg tablet 2024-09 00:00: 00 08-04 00:00 :00 No [id number] 1 tablet 2 TIMES DAILY 1 tablet 2 TIMES DAILY (route: oral) Med Classific ation: Cardiovas cular Therapy Agents Eliquis 5 mg tablet 2024-09 00:00: 00 Yes [id number] 1 tablet 2 TIMES DAILY 1 tablet 2 TIMES DAILY (route: oral) Med Classific ation: Hematolog ical Agents Entresto 24 mg-26 mg tablet 2024-09 00:00: 00 Yes [id number] 1 tablet 2 TIMES DAILY 1 tablet 2 TIMES DAILY (route: oral) Med Classific ation: Cardiovas cular Therapy Agents ferrous sulfate 325 mg (65 mg iron) tablet 2024-09 00:00: 00 Yes [id number] 1 tablet DAILY 1 tablet DAILY (route: oral) Med Classific ation: Electroly te Balance-N utritiona l Products furosemide 20 mg tablet 2024-09 00:00: 00 Yes [id number] 1 tablet EVERY OTHER DAY 1 tablet EVERY OTHER DAY (route: oral) Med Classific ation: Cardiovas cular Therapy Agents Jardiance 10 mg tablet 2024-09 00:00: 00 Yes [id number] 1 tablet DAILY 1 tablet DAILY (route: oral) Med Classific ation: Endocrine sertraline 25 mg tablet 2024-09 00:00: 00 Yes [id number] 1 tablet DAILY 1 tablet DAILY (route: oral) Med Classific ation: Central Nervous System Agents spironolact one 25 mg tablet 2024-09 00:00: 00 Yes [id number] 1 tablet DAILY 1 tablet DAILY (route: oral) Med Classific ation: Cardiovas cular Therapy Agents Wound Cleanser irrigation spray 2024-09 00:00: 00 08-04 00:00 :00 No [id number] Per instruc tions DIRECTED Per instructio ns DIRECTED (route: irrigation ) Med Classific ation: Dermatolo gical Pharmacy Compounded Medication 2024-09 00:00: 00 08-04 00:00 :00 No [id number] Per instruc tions DIRECTED Per instructio ns DIRECTED (route: Per Instructio ns) Med Classific ation: Custom acetaminoph en 325 mg capsule 2024-09 00:00: 00 Yes [id number] 2 capsule EVERY 4 HOURS 2 capsule EVERY 4 HOURS (route: oral) Med Classific ation: Analgesic , Anti-infl ammatory or Antipyret ic amiodarone 200 mg tablet 2024-09 00:00: 00 Yes [id number] 1 tablet 2 TIMES DAILY 1 tablet 2 TIMES DAILY (route: oral) Med Classific ation: Cardiovas cular Therapy Agents carvedilol 6.25 mg tablet 2024-09 00:00: 00 Yes [id number] 1 tablet 2 TIMES DAILY 1 tablet [...] MAINTAIN SITUATIONAL AWARENESS AND WILL NOTIFY CLINICAL TIP STITCHER AND PHYSICIAN/PROVIDER WITH ANY CHANGE IN CONDITION. [code = SKILLED NURSE TO PERFORM ENVIRONMENTAL SAFETY RISK ASSESSMENT AND FALL RISK ASSESSMENT AND PROVIDE INSTRUCTION TO IMPLEMENT ENVIRONMENTAL SAFETY AND FALL PREVENTION STRATEGIES THROUGHOUT THE CERTIFICATION PERIOD. SKILLED NURSE WILL MAINTAIN SITUATIONAL AWARENESS AND WILL NOTIFY CLINICAL TIP STITCHER AND PHYSICIAN/PROVIDER WITH ANY CHANGE IN CONDITION.] [...] Date/Time Encounter Type Admission Type Attending [facility] Care Department Encounter ID Discharge Date Discharge Status Discharge Condition Discharge Reason Percent Goals Met 2025-08-04 00:00:00 2025-10-02 00:00:00 Outpatient ASHLEY EV[facility]ETT [facility] [id number] 17.1 4
== END 2025-08-13 17:03 | disposition home or self-care (01) | DRG 918 ==
LOC: ANHED 20:54 → ANHIMU 22:04
PROVIDERS: Nurse Practitioner; Admitting Provider Internal Medicine; Emergency Provider Emergency Medicine; Visit Provider General Practice
DX: T45.515A Adverse effect of anticoagulants, initial encounter (principal); I48.19 Other persistent atrial fibrillation; I50.20 Unspecified systolic (congestive) heart failure; I42.8 Other cardiomyopathies; I50.22 Chronic systolic (congestive) heart failure; R04.0 Epistaxis; I11.0 Hypertensive heart disease with heart failure; I25.10 Atherosclerotic heart disease of native coronary artery without angina pectoris; I87.8 Other specified disorders of veins; D64.9 Anemia, unspecified; E87.6 Hypokalemia; Z95.5 Presence of coronary angioplasty implant and graft; Z79.01 Long term (current) use of anticoagulants; Z79.891 Long term (current) use of opiate analgesic; Z79.85 Long-term (current) use of injectable non-insulin antidiabetic drugs
CPT/HCPCS: 36415; 71045; 80048; 80053; 83735; 83880; 84484; 85025; 85027; 85055; 86850; 86900; 86901; 93005; 96365; 96366; 96372; 96375; 99212; 99285; A9270; G0378; G0463; J0616; J1163; J2004; J2270; J2359